=== PATIENT | female | born 1970 | race Hispanic/Latino ===

== ENCOUNTER → 2020-02-02 09:18 | Outpatient (CLI) | payer OTHER, SELFPAY ==
--- NOTE | ~2020-02-02 | MR_ITS ---
EXAMINATION: MR ankle RT wo con DATE: 02/02/2020 10:19 INDICATION: Right ankle pain post injury TECHNIQUE: Magnetic resonance imaging (MRI) of the right ankle was performed without intravenous cont rast. Sequences included sagittal, coronal, and axial proton-density weighted fast spin echo without and with fat saturation. COMPARISON: None. FINDINGS: Medial ankle ligaments: Deep and superficial deltoid ligaments as well as the spring ligament are normal. Lateral ankle ligaments: The anterior and posterior inferior tibiofibular ligaments are normal. The calcaneofibular and maori physiotherapist ior talofibular ligaments are normal. There is thickening and mild increased signal at the fibular si de of the anterior talofibular ligament without surrounding edema consistent with scarring related to chronic sprain. Tendons: Achilles tendon is normal. Mild tendinopathy and longitudinal split tearing of both the peroneus long us tendon and peroneus brevis tendon at the level of the flat retromalleolar groove. There is mild as sociated peroneal tenosynovitis. The tibialis anterior and extensor hallucis longus and extensor digi torum longus tendons are normal. The flexor digitorum longus and flexor hallucis longus tendons are n ormal. Mild tibialis posterior tenosynovitis with small amount of fluid signal surrounding the tendon above the level of the tibiotalar joint line. 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 Differential would include heterotopic ossicle related to chronic enthesopathy or chronic tendon injury or less likely sequela of chronic a vulsion fracture with no abnormal increased signal in the immediately adjacent navicula. Plantar fascia: Plantar aponeurosis is normal. Bones/other: Bone alignment is normal. Normal marrow signal aside from the previously noted increased signal of th e tiny ossicle within the distal tibialis posterior tendon. Joint spaces are normal. No significant j oint space narrowing, evident erosions or osteophytosis. Fluid: Physiologic amount fluid in the joint spaces. IMPRESSION: 1. Mild increased signal within a tiny ossicle in the distal tibialis posterior tendon at its navicul ar insertion. 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 Differential would include less likely sequela of chronic enthesopathy or chronic avulsion injury either with nonunited fracture or secondary heterotopic ossification. 2. Mild peroneal tenosynovitis with mild tendinopathy and longitudinal split tearing of both the preet neus longus and brevis tendons at the level of the retromalleolar groove. 3. Likely scarring related to chronic sprain at the anterior talofibular ligament. Reviewed, dictated and finalized at location [facility]. [facility] IMPRESSION: 1. Mild increased signal within a tiny ossicle in the distal tibialis posterior tendon at its navicular insertion. 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 Differential would inclu de less likely sequela of chronic enthesopathy or chronic avulsion injury eithe r with nonunited fracture or secondary heterotopic ossification. 2. Mild peroneal tenosynovitis with mild tendinopathy and longitudinal split te aring of both the peroneus longus and brevis tendons at the level of the retrom alleolar groove. 3. Likely scarring related to chronic sprain at the anterior talofibular ligame nt.
== END ==
PROVIDERS: Visit Provider Podiatrist Foot & Ankle Surgery
DX: M25.571 Pain in right ankle and joints of right foot (principal)
CPT/HCPCS: 73721

== ENCOUNTER 2024-02-17 07:30 | Outpatient (CLI) | payer OTHER, SELFPAY ==
--- NOTE | ~2024-02-17 | MR_ITS ---
MRI of the right knee Clinical history: Pain Technique: Coronal proton density and proton density-weighted images, sagittal proton-density and T2 fat-sat images, and axial proton-density fat-saturated images were acquired. Findings: Anterior and posterior cruciate ligaments are intact. Medial collateral ligament and the la teral collateral ligament conflux are intact. Popliteus tendon is intact. There is a radial tear at the posterior root of the medial meniscus. No lateral meniscal tear seen. There is mild to moderate chondromalacia at the medial joint line. There is minimal chondromalacia pa tella. Bone marrow signals are unremarkable. Extensor mechanism is intact. No significant joint effusion. Small Jj's cyst. Impression: Radial tear at the posterior root of the medial meniscus. 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 Small Jj's cyst. Reviewed, dictated and finalized at [facility]. 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 Small Jj's cyst.
--- OUTSIDE RECORDS SUMMARY | 2024-02-21 16:21 | XMS_ITS | Patient Health Summary ---
Author Organization [facility] Address [address] [place] [address] Care Team Providers Care Plater Production Name Role Phone Noemi, Melani Linda MENARD Primary Care Provider [phone] Note from [facility],non-owned Affiliates and Associated Physician Practices is amultiple site organization consisting of ambulatory clinics and hospital sitesin [place], [place], [place] and [place]. This disclosure is being madepursuant to the Care Everywhere program and may not contain all information available regarding this patient. Last updated 17.[facility] [employer] Allergies No known active allergies Social History Tobacco Use Types Packs/Day Years Used Date Smoking Tobacco: Never Assessed Sex and Gender Information Value Date Recorded Sex Assigned at Female 11/22/2023 12:56 PM CDT Gender Identity Female 11/22/2023 12:56 PM CDT Sexual Orientation Straight 11/22/2023 12 :56 PM CDT Last Filed Vital Signs Vital Sign Reading Time Taken Comments Blood Pressure - - Pulse - - Temperature - - Respiratory Rate - - Oxygen Saturation - - Inhaled Oxygen Concentration - - Weight 55.3 kg (122 lb) 01/02/2024 2:06 PM CDT Height 157.5 cm (5' 2 ) 01/02/2024 2:06 PM CDT Body Mass Index 22.31 01/02/2024 2:06 PM CDT Procedures * US BREAST RIGHT LTD(Performed 01/02/2024) Performed for Breast asymmetry * MAMMO RIGHT IMPLANT DX W MIKY(Performed 01/02/2024) Performed for Breast asymmetry * MAMMO BILAT IMPLANT SCREEN W MIKY(Performed 11/23/2023) Performed for Screening mammogram for breast cancer * DEXA BONE DENSITY AXIAL SKELETON(Performed 11/23/2023) Performed for Screening for osteoporosis * US BREAST LEFT LTD(Performed 03/14/2021) Performed for Abnormal mammogram * MAMMO LEFT DIAGNOSTIC W MIKY(Performed 03/14/2021) Performed for Abnormal mammogram * MAMMO BILAT IMPLANT SCREEN W MIKY(Performed 02/22/2021) Performed for Screening breast examination * MAMMO BILAT SCREENING(Performed 11/24/2019) Performed for Breast cancer screening * MAMMO BILAT SCREENING(Performed 08/06/2018) Performed for Visit for screening mammogram * MAMMO BILAT SCREENING(Performed 07/31/2017) Performed for Visit for screening mammogram * MAMMO BILAT SCREENING(Performed 06/22/2016) Performed for Visit for screening mammogram * MAMMO BILAT SCREENING(Performed 06/16/2014) Performed for Other screening mammogram * DERMATOPATHOLOGY(Performed 09/13/2011) * CHROMOSOME ANALYSIS AMNIOTIC FLUID(Performed 07/06/2010) * SONOGRAM - COMPLETE(Performed 07/06/2010) Results * US BREAST RIGHT LTD (Diagnostic, most commonly ordered) (01/02/2024 2:43 PM CDT) Anatomical Region Laterality Modality Breast Right Mammography 01/02/2024 1:40 PM CDT Impressions 01/02/2024 3:36 PM CDT IMPRESSION: No mammographic or targeted right sonographic evidence of malignancy within the right breast. RECOMMENDATION: ??Pending no interval breast concerns, screening mammogram is due in November 2024. Dr. Holley discussed the examination findings and recommendations with the patient at the time of the examination. Patient will also receive the exam results by lay letter. OVERALL ASSESSMENT: ??BI-RADS CATEGORY 2: BENIGN. Report dictated by Alec Mariee MD (resident in diagnostic radiology). I, Janis Holley MD have personally reviewed and interpreted this examination/study. > Interpreting Provider: Janis Holley MD on 01/02/2024 3:36 PM Narrative 01/02/2024 3:36 PM CDT EXAMINATIONS: 1. ??RIGHT DIGITAL DIAGNOSTIC MAMMOGRAM AND TOMOSYNTHESIS AND 2. ??LIMITED RIGHT BREAST ULTRASOUND (COMBINED REPORT) LOCATION: [facility] EXAM DATE: ??01/02/2024 HISTORY: Follow-up to an abnormal screening mammogram. 7 mm asymmetry in the central/slightly outer right breast on craniocaudal displaced implant view. Family history of breast cancer diagnosed in a paternal aunt at age 40. RISK ASSESSMENT CALCULATION: Patient completed a breast cancer risk assessment during her appointment 01/02/2024. ??Based upon the information she provided and her mammographic breast density, her lifetime risk of developing breast cancer is ??13 % (Average Risk <15%; Intermediate / Moderate Risk 15-19; High Risk > 20%). Risk assessment based upon the Tyrer-Cuzick v8 model. By the NCCN guidelines and family history of breast cancer, consideration of genetic testing is recommended, if not already performed. COMPARISON: Comparison is made to prior mammograms dating back to 2018, with most recent screening mammogram dated 11/23/2023. MAMMOGRAM: TECHNIQUE: Diagnostic right mammography was performed. Tomosynthesis (3-D) and reconstructed synthetic 2-D images acquired. Craniocaudal and true lateral displaced implant views obtained in addition to spot compression craniocaudal view. A total of 6 images were obtained. ?? BREAST COMPOSITION: Category C: The breasts are heterogeneously dense which may obscure small masses. FINDINGS: ??There is no suspicious finding, mass, or evidence of malignancy. The area in question on the recent exam is felt to represent normal parenchymal tissue. ??There is no significant change from the prior study. LIMITED RIGHT BREAST ULTRASOUND: ? Scanning performed from the 11 to the ??1 and 5 to 7 o'clock areas, in addition to the subareolar right breast. Dr. Holley also scanned the patient. FINDINGS: Within the right retroareolar left breast at the 1:00 position is a 0.4 x 0.3 x 0.2 cm well-circumscribed, oval, anechoic mass representing a simple cyst. No suspicious findings identified. Melani Franklin DO US ORDERABLES * Mammo Right Implant Dx W Miky (01/02/2024 2:06 PM CDT) Anatomical Region Laterality Modality Breast Right Mammography 01/02/2024 1:40 PM CDT Impressions 01/02/2024 3:36 PM CDT IMPRESSION: No mammographic or targeted right sonographic evidence of malignancy within the right breast. RECOMMENDATION: ??Pending no interval breast concerns, screening mammogram is due in November 2024. Dr. Holley discussed the examination findings and recommendations with the patient at the time of the examination. Patient will also receive the exam results by lay letter. OVERALL ASSESSMENT: ??BI-RADS CATEGORY 2: BENIGN. Report dictated by Alec Mariee MD (resident in diagnostic radiology). I, Janis Holley MD have personally reviewed and interpreted this examination/study. > Interpreting Provider: Janis Holley MD on 01/02/2024 3:36 PM Narrative 01/02/2024 3:36 PM CDT EXAMINATIONS: 1. ??RIGHT DIGITAL DIAGNOSTIC MAMMOGRAM AND TOMOSYNTHESIS AND 2. ??LIMITED RIGHT BREAST ULTRASOUND (COMBINED REPORT) LOCATION: [facility] EXAM DATE: ??01/02/2024 HISTORY: Follow-up to an abnormal screening mammogram. 7 mm asymmetry in the central/slightly outer right breast on craniocaudal displaced implant view. Family history of breast cancer diagnosed in a paternal aunt at age 40. RISK ASSESSMENT CALCULATION: Patient completed a breast cancer risk assessment during her appointment 01/02/2024. ??Based upon the information she provided and her mammographic breast density, her lifetime risk of developing breast cancer is ??13 % (Average Risk <15%; Intermediate / Moderate Risk 15-19; High Risk > 20%). Risk assessment based upon the Tyrer-Cuzick v8 model. By the NCCN guidelines and family history of breast cancer, consideration of genetic testing is recommended, if not already performed. COMPARISON: Comparison is made to prior mammograms dating back to 2018, with most recent screening mammogram dated 11/23/2023. MAMMOGRAM: TECHNIQUE: Diagnostic right mammography was performed. Tomosynthesis (3-D) and reconstructed synthetic 2-D images acquired. Craniocaudal and true lateral displaced implant views obtained in addition to spot compression craniocaudal view. A total of 6 images were obtained. ?? BREAST COMPOSITION: Category C: The breasts are heterogeneously dense which may obscure small masses. FINDINGS: ??There is no suspicious finding, mass, or evidence of malignancy. The area in question on the recent exam is felt to represent normal parenchymal tissue. ??There is no significant change from the prior study. LIMITED RIGHT BREAST ULTRASOUND: ? Scanning performed from the 11 to the ??1 and 5 to 7 o'clock areas, in addition to the subareolar right breast. Dr. Holley also scanned the patient. FINDINGS: Within the right retroareolar left breast at the 1:00 position is a 0.4 x 0.3 x 0.2 cm well-circumscribed, oval, anechoic mass representing a simple cyst. No suspicious findings identified. Melanilisa Mckeon Noemi DO MAMMO ORDERABLES * Mammo Bilat Implant Screen W Miky (11/23/2023 11:21 AM CDT) Only the most recent of2 resultswithin the time period is included. Anatomical Region Laterality Modality Breast Bilateral Mammography 11/28/2023 1:41 PM CDT Impressions 11/28/2023 2:20 PM CDT : 1. There is a 7mm asymmetry in the central/slightly outer right breast identified on the craniocaudal displaced implant view. 2. Stable benign left mammogram. RECOMMENDATION: ??Diagnostic right mammogram. ??If indicated at that time, right breast ultrasound will be performed. ??Patient will be contacted and scheduled to return for the additional imaging. OVERALL ASSESSMENT: BI-RADS CATEGORY 0: INCOMPLETE: NEED ADDITIONAL IMAGING EVALUATION. Report dictated by Jose Martinez MD (vice president quality assurance). Joaquina Bartlett MD (breast imaging fellow) and Alex Dougherty MD (resident in diagnostic radiology) assisted in the interpretation of this study. I, Janis Holley MD have personally reviewed and interpreted this examination/study. > Interpreting Provider: Janis Holley MD on 11/28/2023 2:20 PM Narrative 11/28/2023 2:20 PM CDT EXAMINATIONS: BILATERAL DIGITAL SCREENING MAMMOGRAM WITH IMPLANTS AND BILATERAL BREAST TOMOSYNTHESIS LOCATION: [facility] EXAM DATE: ??11/23/2023 HISTORY: Screening. History of breast augmentation. Family history of breast cancer in paternal aunt at age 40. RISK ASSESSMENT CALCULATION: Patient completed a breast cancer risk assessment during her appointment 11/23/2023. ??Based upon the information she provided and her mammographic breast density, her lifetime risk of developing breast cancer is ??13 % (Average Risk <15%; Intermediate / Moderate Risk 15-19; High Risk > 20%). Risk assessment based upon the Tyrer-Cuzick v8 model. COMPARISON: Comparison is made to prior mammograms back to 2018 with the most recent from 04/11/2022 performed at [facility]. TECHNIQUE: ??Bilateral synthetic 2-D digital mammogram images and bilateral digital breast tomosynthesis (3D) were obtained and reviewed in the craniocaudal and mediolateral oblique projections with the breast implants displaced. ??Bilateral craniocaudal and mediolateral oblique conventional full field digital images were also obtained to include the bilateral breast implants. . A total of 10 images obtained. Transpara AI was utilized in the interpretation. ?? BREAST PARENCHYMAL COMPOSITION: Category B: There are scattered areas of fibroglandular density. FINDINGS: There are bilateral silicone breast implants, which limits evaluation of the breast parenchyma. Right breast: ??On the right craniocaudal displaced implant view, there is a 7 mm asymmetry in the central/slightly outer right breast at mid depth 2.5 cm from the nipple. This is best visualized on image 9 of 50. The correlate is not definitively identified on the MLO views. Left breast: ??No suspicious findings or evidence of malignancy. No change. Melani Franklin DO MAMMO ORDERABLES * Dexa Bone Density Axial Skeleton (11/23/2023 10:24 AM CDT) Anatomical Region Laterality Modality Other 11/23/2023 10:3 1 AM CDT Narrative 11/23/2023 10:35 AM CDT PROCEDURE: ??DEXA BONE DENSITY AXIAL SKELETON DATE/TIME OF EXAM: ??11/23/2023 10:24 AM Indication: Z13.820: Screening for osteoporosis COMPARISON: None. LUMBAR SPINE (L1-L4): Bone mineral density (g/cm2): ??1.121 Current T-score: 0.7 ? LEFT FEMORAL NECK: ?? Bone mineral density (g/cm2): ??0.858 Current T-score: 0.1 ? BONE DENSITY ASSESSMENT: WHO Category: ??Normal. FRAX not reported because: All T-scores for spine total, hip total, femoral neck at or above -1.0. Please see the PACS images for additional details. World Health Organization definitions of standard deviations relative to the mean T-score: Normal bone density = -1.0 and above Osteopenia = between -1.0 and -2.5 Osteoporosis = -2.5 and below > Dictated by Kandace Alcantar (Side Guider) 11/23/2023 10:31 AM IClarita DO have personally reviewed and interpreted this examination/study. > Interpreting Provider: Clarita Antony DO on 11/23/2023 10:35 AM Procedure Note Clarita Antony DO - 11/23/2023 PROCEDURE: DEXA BONE DENSITY AXIAL SKELETON DATE/TIME OF EXAM: 11/23/2023 10:24 AM Indication: Z13.820: Screening for osteoporosis COMPARISON: None. LUMBAR SPINE (L1-L4): Bone mineral density (g/cm2): 1.121 Current T-score: 0.7 LEFT FEMORAL NECK: Bone mineral density (g/cm2): 0.858 Current T-score: 0.1 BONE DENSITY ASSESSMENT: WHO Category: Normal. FRAX not reported because: All T-scores for spine total, hip total, femoral neck at or above -1.0. Please see the PACS images for additional details. World Health Organization definitions of standard deviations relative to the mean T-score: Normal bone density = -1.0 and above Osteopenia = between -1.0 and -2.5 Osteoporosis = -2.5 and below > Dictated by Kandace Alcantar (Side Guider) 11/23/2023 10:31AM Clarita Mattson DO have personally reviewed and interpreted this examination/study. > Interpreting Provider: Clarita Antony DO on 11/23/2023 10:35 AM Eben BOYD ORDERABLES * US BREAST LEFT LTD (03/14/2021 10:02 AM WASTE RECYCLER) Anatomical Region Laterality Modality Breast Left Mammography 03/14/2021 10:0 0 AM WASTE RECYCLER Impressions 03/14/2021 1:03 PM WASTE RECYCLER IMPRESSION: No mammographic evidence of malignancy. RECOMMENDATION: ??Recommend resume yearly screening mammography and mammogram is due in February 2022. Dr. Gómez discussed the examination findings and recommendations with the patient at the time of the examination. OVERALL ASSESSMENT: ??BI-RADS CATEGORY 2: BENIGN. Report drafted by Matt Chang and Jennifer Hassan (residents). Dr. ARTIE Mattson M.D. have personally reviewed and interpreted this examination/study. This report was electronically signed by ARTIE GÓMEZ M.D. ??on 03/14/2021 1:03 PM . Narrative 03/14/2021 1:03 PM WASTE RECYCLER EXAMINATIONS: 1. ??DIGITAL MAMMO LEFT DIAGNOSTIC WITH TOMOSYNTHESIS AND 2. ??LIMITED ??LEFT BREAST ULTRASOUND (COMBINED REPORT) DATE OF EXAM: 03/14/2021 9:36 AM HISTORY: Follow-up to an abnormal screening mammogram. Asymmetry in the left breast on screening mammogram. Patient has breast implants. Patient's lifetime risk of developing breast cancer is 16 %. COMPARISON: Bilateral screening mammogram on 02/22/2021 MAMMOGRAM: TECHNIQUE: Diagnostic left mammography was performed. Tomosynthesis (3-D) and reconstructed C - view (synthetic 2-D) ??images acquired. Tomosynthesis (3-D) and reconstructed C - view (synthetic 2-D) ??images acquired and reviewed in the left craniocaudal and mediolateral oblique implant displaced projections. Left craniocaudal and mediolateral conventional full field digital images were obtained to include the left breast implant. ?? A total of 3 images were obtained. ??Computer-aided detection (CAD) was utilized. BREAST COMPOSITION: Category B: There are scattered areas of fibroglandular density. FINDINGS: ??The area in question compresses out, without suspicious findings or evidence of malignancy, and is felt due to normal parenchyma. LIMITED LEFT BREAST ULTRASOUND: Ultrasound of the 12:00 to 6:00 region via the 3:00 position of the left breast was performed. FINDINGS: No mass or sonographic evidence of malignancy is seen. The ultrasound is normal. Melani Franklin US ORDERABLES * MAMMO LEFT DIAGNOSTIC W MIKY (03/14/2021 9:35 AM WASTE RECYCLER) Anatomical Region Laterality Modality Breast Left Mammography 03/14/2021 10:0 0 AM WASTE RECYCLER Impressions 03/14/2021 1:03 PM WASTE RECYCLER IMPRESSION: No mammographic evidence of malignancy. RECOMMENDATION: ??Recommend resume yearly screening mammography and mammogram is due in February 2022. Dr. Gómez discussed the examination findings and recommendations with the patient at the time of the examination. OVERALL ASSESSMENT: ??BI-RADS CATEGORY 2: BENIGN. Report drafted by Matt Chang and Jennifer Hassan (residents). I, Dr. ARTIE GÓMEZ M.D. have personally reviewed and interpreted this examination/study. This report was electronically signed by ARTIE GÓMEZ M.D. ??on 03/14/2021 1:03 PM . Narrative 03/14/2021 1:03 PM WASTE RECYCLER EXAMINATIONS: 1. ??DIGITAL MAMMO LEFT DIAGNOSTIC WITH TOMOSYNTHESIS AND 2. ??LIMITED ??LEFT BREAST ULTRASOUND (COMBINED REPORT) DATE OF EXAM: 03/14/2021 9:36 AM HISTORY: Follow-up to an abnormal screening mammogram. Asymmetry in the left breast on screening mammogram. Patient has breast implants. Patient's lifetime risk of developing breast cancer is 16 %. COMPARISON: Bilateral screening mammogram on 02/22/2021 MAMMOGRAM: TECHNIQUE: Diagnostic left mammography was performed. Tomosynthesis (3-D) and reconstructed C - view (synthetic 2-D) ??images acquired. Tomosynthesis (3-D) and reconstructed C - view (synthetic 2-D) ??images acquired and reviewed in the left craniocaudal and mediolateral oblique implant displaced projections. Left craniocaudal and mediolateral conventional full field digital images were obtained to include the left breast implant. ?? A total of 3 images were obtained. ??Computer-aided detection (CAD) was utilized. BREAST COMPOSITION: Category B: There are scattered areas of fibroglandular density. FINDINGS: ??The area in question compresses out, without suspicious findings or evidence of malignancy, and is felt due to normal parenchyma. LIMITED LEFT BREAST ULTRASOUND: Ultrasound of the 12:00 to 6:00 region via the 3:00 position of the left breast was performed. FINDINGS: No mass or sonographic evidence of malignancy is seen. The ultrasound is normal. Melani Franklin DO MAMMO ORDERABLES * MAMMO BILAT SCREENING (11/24/2019 8:05 AM CDT) Only the most recent of5 resultswithin the time period is included. Anatomical Region Laterality Modality Breast Bilateral Mammography 11/24/2019 9:24 AM CDT Impressions 11/24/2019 9:28 AM CDT IMPRESSION: No mammographic evidence of malignancy. ASSESSMENT: BI-RADS Category 2: ?? Benign mammogram. RECOMMENDATION: ??Return for mammograms in one year or sooner if clinically indicated. Breast implants decrease the sensitivity of mammography. This report was electronically signed by SHAMIKA TELLO M.D. ??on 11/24/2019 9:28 AM . Narrative 11/24/2019 9:28 AM CDT Bilateral screening mammogram Date: ??11/24/2019 Comparison: 08/06/2018 History: Screening mammogram. Retropectoral silicone breast implants ?. Technique: ??The breasts were imaged in multiple views using 3D tomosynthesis with reconstructed/synthetic images and CAD analysis, including implant displaced views. Findings: No suspicious mass, grouped microcalcification or architectural distortion is seen. ??No significant change is noted since the prior examination. ??The implants appear unchanged in contour. Breast parenchymal density: ??There are scattered areas of fibroglandular density This examination was subjected to CAD analysis. Melani Mckeon Noemi DO MAMMO ORDERABLES * PATHOLOGY TISSUE FOR DERMATOLOGY (09/13/2011 12:00 AM CDT) Result CASE: [id number] PATIENT: JODY ESCALONA PATHOLOGIC DIAGNOSIS: Right lateral chest: INTRADERMAL MELANOCYTIC NEVUS CLINICAL DATA: R/O tag. GROSS DESCRIPTION: Received is one formalin filled container labeled with the patient's name and designated right lateral chest. The specimen consists of a shave biopsy measuring 5x5x4 mm. Jar 0. MICROSCOPIC DESCRIPTION: There are nests of melanocytes within the dermis that mature with depth. Final Diagnosis performed by Brittaney Fisher M.D. Electronically signed 09/15/2011 1:49:17PM [facility] Comment: Performed at: Dermatopathology Laboratory [facility] Department of Dermatology [address] [place] [address], [address] [place] [address] Phone number: [phone] Toll Free: [phone] FAX: [phone] 09/13/2011 09/14/2011 Santana Bradford MD LAB - PATHOLOGY/CYTO LOGY ORDERABLES Performing Organization Address City/[facility] Co de Phone Number [facility] [address] [place] [address]. 5th Floor Lab [address] [phone] * CHROMOSOME ANALYSIS AMNIO PANEL (07/06/2010 11:30 AM CDT) Chromosome Analysis Amniotic Fluid See Scanned Report [facility] AMNIOTIC FLUID SPECIMEN / Unknown 07/06/2010 11:30 AM CDT 07/06/2010 3:57 PM CDT Narrative Resulting Agency Comment Performed By [facility] ? [address] [facility]. Ordering Provider Unlisted MD LAB - PATH OLOGY/CYTOLOGY ORDERABLES Performing Organization Address City/[facility] Co de Phone Number [facility] [address] [place] [address] * SONOGRAM - COMPLETE (07/06/2010 11:10 AM CDT) Anatomical Region Laterality Modality Other 07/06/2010 11:1 0 AM CDT Narrative 07/21/2010 3:31 PM CDT ? [facility] ? Evaluation and Treatment Unit ?PHONE: ??FAX: Pat. Name: ?JODY ESCALONA Pat. No: ?[id number] Study Date: ?? 07/06/2010 ??11:10am , Age: ? 1970, 40 Pregnancies: ?? 4, Para 1, Ab 2 LMP: ?03/16/2010 GA by LMP: ?16w0d GA by US: ? 16w6d GA Selected: ??16w0d (LMP) IVANIA: ?12/21/2010 Referring MD: Eben Lainez MD Speech Correction Consultant: ??Bridgett Chiang RDMS/hilary Hist/Ind: ? Abn Sequential Scrn/Incr risk DS ?AMA MEASUREMENTS & AGE ? GROWTH EVALUATION Measurement ??GA ? Range ? Srce %for GA Ratios ----- ---- ------- BPD ??3.8 cm 17w4d (37m6a-57u2r) Hadl BPD >95 FL/BPD 0.52 HC ??13.4 cm 16w6d (70x8f-02q4x) Hadl HC ??84% FL/AC ??0.18 AC ??11.0 cm 16w6d (12v2u-04x1e) Hadl AC ??74% HC/AC ??1.21 (1.09 - 1.28) FL ?? 2.0 cm 15w6d (62q6c-12j2w) Hadl FL ??46% CI ? 0.83 (0.70 - 0.86) GA for sonogram 16w6d (51m5v-82c6g) ?? Weight Estimate: based on (BPD,HC,AC,FL) Avg ?Weight: 158 gm (135-181) [place]lock ? : 0lbs, 5oz Heart Rate: 154 bpm CLINICAL SUMMARY Study Number: ??1 A costello fetus is identified in cephalic presentation. ??The measurements today are consistent with appropriate growth compared to previous examination. ??The IVANIA selected is based on her LMP and a prior ultrasound examination. ??The amniotic fluid volume is within normal limits. ??The placenta is posterior, Grade 1. ??No major malformations are seen, although the heart was not well visualized due to position and size. ??The patient was advised that ultrasound does not allow detection of all structural or chromosomal abnormalities. ??She consented for amniocentesis. ?? Amniocentesis was performed under direct ultrasound guidance without complications. ??The placenta was not traversed, 20cc's of clear fluid were obtained and sent for chromosomes studies. ??The heart rate was within normal limits post procedure. ?? IMPRESSION: 1. ??Costello IUP at 16 weels EGA 2. ??Normal growth 3. ??Normal AFV 4. ??No malformations seen within the limitations of ultrasound 5. ??Amnio for increased DS risk/AMA done RECOMMEND: F 1. ??Follow up ultrasound as clinically indicated 2. ??Follow up on karyotype results Gilmar White MD <Electronic Signature> ??07/21/2010 03:31pm Eben Lainez MD [facility] ORDERABLES Care Teams Plater Production Relationship Specialty Start Date End Date Melani Franklin DO [address] [place] [address] [address] [place] [address] PCP - General Internal Medicine 07/31/17
--- OUTSIDE RECORDS SUMMARY | 2024-02-21 16:21 | XMS_ITS | Clinical Summary ---
Author Organization [facility] Address [address] [place] [address] Care Team Providers Care Captain Fishing Vessel Name Role Phone Melani Franklin DO Primary Care Provider [phone] Source Comments [facility],non-owned Affiliates and Associated Physician Practices is amultiple site organization consisting of ambulatory clinics and hospital sitesin [place], [place], [place] and [place]. This disclosure is being madepursuant to the Care Everywhere program and may not contain all information available regarding this patient. Last updated 17.[facility] [place] Allergies No known active allergies Encounters Date Type Department Care Team Description 01/02/2024 1:15 PM CDT - 01/02/2024 11:59 PM CDT Hospital Encounter [address] [address] Melani Franklin, Discharge Disposition: Home or Self Care 01/02/2024 1:14 PM CDT Hospital Encounter [address] [address] Melani Franklin, Discharge Disposition: Home or Self Care 01/02/2024 Travel 11/29/2023 Travel 11/23/2023 10:48 AM CDT - 11/23/2023 11:59 PM CDT Hospital Encounter [address] [address] Eben Lainez MD Discharge Disposition: Home or Self Care 11/23/2023 10:00 AM CDT - 11/23/2023 10:47 AM CDT Hospital Encounter [facility] DIAGNOSTIC RAD OP [address] [place] [address] Eben Lainez MD Discharge Disposition: Home or Self Care 11/23/2023 Travel from Last 3 Months Family History Medical History Relation Name Comments Cancer - Breast Paternal Aunt Relation Name Status Comments Paternal Aunt Social History Tobacco Use Types Packs/Day Years [...] Mass Index 22.31 01/02/2024 2:06 PM CDT Plan of Treatment Health Maintenance Due Date Last Done Comments COLOGUARD (AGES 45-75) - COLON CA SCREENING 1969 COLON MONITORING 1969 COLONOSCOPY - COLON CA SCREENING 1969 CT COLONOGRAPHY - COLON CA SCREENING 1969 Colorectal Cancer Screening 1969 FIT - COLON CA SCREENING 1969 FLEX SIG - COLON CA SCREENING 1969 LIPID TESTING 1969 PAP SMEAR 1969 HIV SCREENING 01/27/1984 HEPATITIS C SCREENING 01/22/1987 DTAP/TDAP/TD VACCINES (1 - Tdap) 01/27/1988 HEPATITIS B VACCINE (1 of 3 - 19+ 3-dose series) 01/27/1988 ZOSTER VACCINE (1 of 2) 2019 DEPRESSION SCREENING 03/05/2023 COVID-19 VACCINE ( - 2023- season) 2023 INFLUENZA VACCINE (#1) 2023 , 10/17/2020, 11/17/2019, Additional history exists MAMMOGRAM 01/01/2026 01/02/2024, 11/04, 04/11/2022, Additional history exists HIB VACCINE Aged Out No longer eligi ble based on patient's age to complete this topic HPV VACCINE Aged Out No longer eligi ble based on patient's age to complete this topic MENINGOCOCCAL VACCINE Aged Out No karma blake eligible based on patient's age to complete this topic PNEUMOCOCCAL VACCINE Aged Out No long er eligible based on patient's age to complete this topic Procedures Procedure Name Priority Date/Time Associated Diagnosis Comments US BREAST RIGHT LTD Routine 01/02/2024 2:43 PM CDT Breast asymmetry MAMMO RIGHT IMPLANT DX W DENIS Routine 01/02/2024 2:06 PM CDT Breast asymmetry MAMMO BILAT IMPLANT SCREEN W DENIS Routine 11/23/2023 11:21 AM CDT Screening mammogram for breast cancer DEXA BONE DENSITY AXIAL SKELETON Routine 11/23/2023 10:24 AM CDT Screening for osteoporosis from Last 3 Months Results * US BREAST RIGHT LTD (Diagnostic, [...] BENIGN. Report dictated by Alec Mariee MD (residential support specialist). I, Janis Holley MD have personally reviewed and interpreted this examination/study. > Interpreting Provider: Janis Holley MD on 01/02/2024 3:36 PM Narrative 01/02/2024 3:36 PM CDT EXAMINATIONS: 1. ??RIGHT DIGITAL DIAGNOSTIC MAMMOGRAM AND TOMOSYNTHESIS AND 2. ??LIMITED RIGHT BREAST ULTRASOUND (COMBINED REPORT) LOCATION: [facility] EXAM DATE: ??01/02/2024 HISTORY: Follow-up to an [...] ORDERABLES * Mammo Right Implant Dx W Denis (01/02/2024 2:06 PM CDT) Anatomical Region Laterality [...] BENIGN. Report dictated by Alec Mariee MD (residential support specialist). I, Janis Holley MD have personally reviewed and interpreted this examination/study. > Interpreting Provider: Janis Holley MD on 01/02/2024 3:36 PM Narrative 01/02/2024 3:36 PM CDT EXAMINATIONS: 1. ??RIGHT DIGITAL DIAGNOSTIC MAMMOGRAM AND TOMOSYNTHESIS AND 2. ??LIMITED RIGHT BREAST ULTRASOUND (COMBINED REPORT) LOCATION: [facility] EXAM DATE: ??01/02/2024 HISTORY: Follow-up to an [...] No suspicious findings identified. Melani Franklin DO MAMMO ORDERABLES * Mammo Bilat Implant Screen W Denis (11/23/2023 11:21 AM CDT) Anatomical Region Laterality Modality Breast Bilateral Mammography [...] EVALUATION. Report dictated by Jose Martinez MD (residential plumber). Joaquina Bartlett MD (breast imaging fellow) and Alex Dougherty MD (residential support specialist) assisted in the interpretation of this study. I, Jains Holley MD have personally reviewed and interpreted this examination/study. > Interpreting Provider: Janis Holley MD on 11/28/2023 2:20 PM Narrative 11/28/2023 2:20 PM CDT EXAMINATIONS: BILATERAL DIGITAL SCREENING MAMMOGRAM WITH IMPLANTS AND BILATERAL BREAST TOMOSYNTHESIS LOCATION: [facility] EXAM DATE: ??11/23/2023 HISTORY: Screening. History of [...] the most recent from 04/11/2022 performed at [facility]. TECHNIQUE: ??Bilateral synthetic 2-D digital mammogram images [...] and below > Dictated by Kandace Alcantar (Wall Cleaner) 11/23/2023 10:31 AM Clarita Mattson DO have personally reviewed and [...] and below > Dictated by Kandace Alcantar (Wall Cleaner) 11/23/2023 10:31AM Clarita Mattson DO have personally reviewed and interpreted this examination/study. > Interpreting Provider: Clarita Antony DO on 11/23/2023 10:35 AM Eben BOBA ORDERABLES from Last 3 Months Care Teams Captain Fishing Vessel Relationship Specialty Start Date End Date Melani Franklin DO [address] [facility] [address] [place] [address] PCP - General Internal Medicine 07/31/17
--- OUTSIDE RECORDS SUMMARY | 2024-02-21 16:21 | XMS_ITS | Referral Summary ---
Author Organization [facility] Address [address] [place] [address] Care Team Providers Care Airport Electrician Name Role Phone Melani Franklin DO Primary Care Provider [phone] Source Comments [facility],non-owned Affiliates and Associated Physician Practices is amultiple site organization consisting of ambulatory clinics and hospital sitesin [place], [place], [place] and [place]. This disclosure is being madepursuant to the Care Everywhere program and may not contain all information available regarding this patient. Last updated 17.[facility] Encounters Date Type Department Care Team Description 01/02/2024 Travel 01/02/2024 1:15 PM CDT - 01/02/2024 11:59 PM CDT Hospital Encounter [address] [address] Melani Franklin, Discharge Disposition: Home or Self Care 01/02/2024 1:14 PM CDT Hospital Encounter [address] [address] Melani Franklin, Discharge Disposition: Home or Self Care 11/29/2023 Travel 11/23/2023 Travel 11/23/2023 10:48 AM CDT - 11/23/2023 11:59 PM CDT Hospital Encounter [address] [address] Eben Lainez MD Discharge Disposition: Home or Self Care 11/23/2023 10:00 AM CDT - 11/23/2023 10:47 AM CDT Hospital Encounter [facility] DIAGNOSTIC RAD OP [address] [place] [address] Eben Lainez MD Discharge Disposition: Home or Self Care from Last 3 Months Allergies No known active allergies Social History [...] 01/02/2024 2:06 PM CDT Plan of Treatment Not on file Procedures Procedure Name Priority Date/Time Associated Diagnosis [...] BENIGN. Report dictated by Alec Mariee MD (radiology nurse). I, Janis Holley MD have personally reviewed and interpreted this examination/study. > Interpreting Provider: Janis Holley MD on 01/02/2024 3:36 PM Narrative 01/02/2024 3:36 PM CDT EXAMINATIONS: 1. ??RIGHT DIGITAL DIAGNOSTIC MAMMOGRAM AND TOMOSYNTHESIS AND 2. ??LIMITED RIGHT BREAST ULTRASOUND (COMBINED REPORT) LOCATION: [facility] EXAM DATE: ??01/02/2024 HISTORY: Follow-up to an [...] BENIGN. Report dictated by Alec Mariee MD (radiology nurse). I, Janis Holley MD have personally reviewed and interpreted this examination/study. > Interpreting Provider: Janis Holley MD on 01/02/2024 3:36 PM Narrative 01/02/2024 3:36 PM CDT EXAMINATIONS: 1. ??RIGHT DIGITAL DIAGNOSTIC MAMMOGRAM AND TOMOSYNTHESIS AND 2. ??LIMITED RIGHT BREAST ULTRASOUND (COMBINED REPORT) LOCATION: [facility] EXAM DATE: ??01/02/2024 HISTORY: Follow-up to an [...] EVALUATION. Report dictated by Jose Martinez MD (regional vice president surgical sales). Joaquina Bartlett MD (breast imaging fellow) and Alex Dougherty MD (radiology nurse) assisted in the interpretation of this study. I, Janis Holley MD have personally reviewed and interpreted this examination/study. > Interpreting Provider: Janis Holley MD on 11/28/2023 2:20 PM Narrative 11/28/2023 2:20 PM CDT EXAMINATIONS: BILATERAL DIGITAL SCREENING MAMMOGRAM WITH IMPLANTS AND BILATERAL BREAST TOMOSYNTHESIS LOCATION: [facility] EXAM DATE: ??11/23/2023 HISTORY: Screening. History of [...] the most recent from 04/11/2022 performed at [facility]. TECHNIQUE: ??Bilateral synthetic 2-D digital mammogram images [...] and below > Dictated by Kandace Alcantar (Director Of Global Marketing) 11/23/2023 10:31 AM Clarita Mattson DO have [...] and below > Dictated by Kandace Alcantar (Director Of Global Marketing) 11/23/2023 10:31AM I, Clarita Antony DO have personally reviewed and interpreted this examination/study. > Interpreting Provider: lCarita Antony DO on 11/23/2023 10:35 AM Eben Lainez MD DEXA ORDERABLES from Last 3 Months Care Teams Airport Electrician Relationship Specialty Start Date End Date Melani Franklin DO [address] [facility] [address] [place], [place] [id number] PCP - General Internal Medicine 07/31/17
--- OUTSIDE RECORDS SUMMARY | 2024-02-21 16:22 | XMS_ITS | Encounter Summary ---
Author Organization [facility] Address [address] [place] [address] Phone Care Team Providers Care Kitchen Hand Name Role Phone Melani Franklin Linda Primary Care Provider [phone] Reason for Visit * Reason Comments OT Treatment * Consultation (Routine) - Authorized Specialty Diagnoses / Procedures Referred By Contact Referred To Contact Occupational Therapy Diagnoses Pain of left thumb Arthritis of carpometacarpal (CMC) joint of left thumb Anurag Franklin MD [address] [facility] [address] [place] [address] Phone: tel:[phone] fax:[phone] [facility] (All Locations) Referral ID Status Reason Start Date Expiration Date Visits Requested Visits Authorized [id number] Authorized Specialty Services Required 04/20/2023 05/19/2024 24 24 Encounter Details Date Type Department Care Team (Late st Contact Info) Description 05/28/2023 1:00 PM CDT Therapy [facility] Occupational Therapy [address] [facility] 1st [address] [place] [id number] [place] [address] [address] [place] [address] Pain of left thumb (Primary Dx) Social History Tobacco Use Types Packs/Day Years Used Date Smoking Tobacco: Former Cigarettes 1 14 1 993 - 2007 Smokeless Tobacco: Never AUDIT-C Answer Date Recorded Q1: How often do you have a drink containing alc ohol? 2-3 times a week 03/21/2023 Q2: How many drinks containi ng alcohol do you have on a typical day when you are drinking? 1 or 2 03/21/2023 Q3: How often do you have si x or more drinks on one occasion? Never 03/21/2023 Personal Safety Answer Date Recorded Have you ever been in or are you currently in a harmful physical or emotional relationship or is someone making you feel afraid or unsafe? Denies 03/21/2023 Comments No Sex and Gender Information Value Date Recorded Sex Assigned at Not on file Legal Sex Female 12:36 PM ACADEMIC PROGRAM SPECIALIST Gender Identity Female 12/10/2020 10:46 AM CDT Sexual Orientation Not on file documented as of this encounter Progress Notes * Khalida Carey, OT - 05/28/2023 1:00 PM CDT PROGRESS NOTE Name: Jody Mason : 1970 Diagnosis: No diagnosis found. MD's order on Diagnosis: Failed arthroplasty left thumb base Date of Surgery: 03/21/2023 Procedure: Removal internal brace implant Flexor carpi radialis and abductor pollicis longus tendon transfer to thumb base Frequency/Duration: 1x per week for up to 3 months Next MD Visit: 4-6 weeks OT/PT Evaluate and Treat: AROM of thumb, do not encourage/allow thumb MP hyperextension AROM of wrist and forearm Orthosis Specifications: forearm based thumb spica with thumb in anteposition and MP in slight flexion. 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 Objective: 01/25/2021 03/08/2021 12/06/2021 03/06/2023 03/30/2023 04/20/2023 PROMIS Upper Extremity V2.0 30.2 36.7 45.3 26.6 35.8 36.6 Pain Interference 60.4 53.9 52.6 62.9 64 58 Physical Function V2.0 46.1 48.2 51.4 37.5 32 42.4 Anxiety V1.0 51.2 45.7 53.1 62.1 58.3 51.2 Depression 42.9 41.7 45.8 53.3 46.1 41.7 Active Thumb Range of Motion Right Left MP extension/ flexion MP extension/ flexion NT/26 IP extension/flexion IP extension/flexion NT/63 Palmar abduction Palmar abduction 40 Radial abduction Radial abduction NT due to tendency to hyperextend at MP Opposition Opposition To SF P1 without hyperextension Other: Other: Noted intermittent slight hyperextension of MP during resting posture 66/53 WF/WE AROM 05/28/2023 QUICK DASH Open a tight or new jar 3 - Moderate Difficulty Do heavy jet pilot (e.g., wash rivera, floors) 3 - Moderate Difficulty Carry a shopping bag or briefcase 3 - Moderate Difficulty Wash your back 2 - Mild Difficulty Use a knife to cut food 3 - Moderate Difficulty Recreational activities in which you take some force or impact through your arm, shoulder, or hand (e.g., golf, hammering, tennis, etc.) 3 - Moderate Difficulty During the past week, to what extent has your arm, shoulder, or hand problem interfered with your normal social activities with family, friends, neighbours or groups? 1 - Not at All During the past week, were you limited in your work or other regular daily activities as a result of your arm, shoulder or hand problem? 2 - Slightly Limited Arm, shoulder or hand pain 2 - Mild Tingling (pins and needles) in your arm, shoulder or hand 1 - None During the past week, how much difficulty have you had sleeping because of the pain in your arm, shoulder or hand? 1 - No Difficulty Quick DASH Disability/Symptom Score: 29.55 Treatment provided: -MHP to improve tissue extensibility -Adductor pollicis release and massage -PROM: thumb abduction, thumb MP flexion, WF/WE -AROM: to train on O posture during pinching and to widen first webspace -Cone twisting and stacking -Marbles hop picker -Health balls -Continued HEP: -Thumb PAB and serial O using light objects for thumb stabilization. -Adductor release massage, and PAB stretch -Wrist flexion stretch -Thumb MP flexion stretch -Educated on thumb joint protection: pinching with lightest resistance when released to full activity, Assessment: Jody's thumb posture, and range are improving. She demonstrates good understanding of her final HEP. Her QuickDash's score also improved. Plan: She returns to MD tomorrow. She may be discharged unless her surgeon feels that she needs to continue. Updated MD orders required after: 07/19/23 GOALS: Goal Status / Date Updated Due by: STG1 Patient will verbalize understanding of purpose, care, wearing schedule, and precaution with orthosis. MET STG2 Patient will be able to hold MP in neutral and not hyperextension without support. MET 06/19/23 STG3 Patient will be able to oppose thumb to SF tip for in hand manipulation of cooking tools. MET 06/19/23 LTG1 Patient will be able to oppose thumb to SF base to manipulate to braid her daughter's hair. Almost MET 07/19/23 LTG2 New 04/20/2023 LTG3 New 04/20/2023 Start time: 13:03 End Time: 13:50 Khalida Carey OTR/Abisai, CHT If the patient does not return to therapy this will serve as a discharge summary. documented in this encounter Plan of Treatment Not on file documented as of this encounter Visit Diagnoses Diagnosis Pain of left thumb- Primary documented in this encounter Care Teams Kitchen Hand Relationship Specialty Start Date End Date Melani Franklin DO [address] [facility] [address] [place] [address] PCP - General Internal Medicine 10/05/20 documented as of this encounter
--- OUTSIDE RECORDS SUMMARY | 2024-02-21 16:22 | XMS_ITS | Encounter Summary ---
Author Organization [facility] Address [address] [place], [place] [address] [address] Care Team Providers Care Caddie Name Role Phone Melani Franklin DO Primary Care Provider Reason for Referral * Radiology Services (Routine) - Closed Specialty Diagnoses / Procedures Referred By Tyrone baxter Referred To Contact Mammography Diagnoses Abnormal mammogram Procedures US BREAST LEFT LTD Melani Franklin, DO [address] [facility] [address] [place] [address] [facility] [address] [place] [address] Referral ID Status Reason Start Date Expiration Date Visits Re quested Visits Authorized [id number] Closed 02/23/2021 02/23/2022 1 1 ILL RELIEF WORKER Reason for Visit * Radiology Services (Routine) - Closed Specialty Diagnoses / Procedures Referred By Tyrone baxter Referred To Contact Mammography Diagnoses Abnormal mammogram Procedures US BREAST LEFT LTD Melani Franklin, DO [address] [facility] [address] [place] [address] [facility] [address] [place] [address] Referral ID Status Reason Start Date Expiration Date Visits Re quested Visits Authorized [id number] Closed 02/23/2021 02/23/2022 1 1 Encounter Details Date Type Department Care Team (Latest Contact Info) Description 03/14/2021 9:47 AM SAWMILL RELIEF WORKER - 03/14/2021 11:59 PM SAWMILL RELIEF WORKER Hospital Encounter [facility] [address] [place] [address] Melani Franklin, DO [address] [facility] [address] [place] [address] Discharge Disposition: Home or Self Care Social History Tobacco Use Types Packs/Day Years Used Date Smoking Tobacco: Never Assessed Sex and Gender Information Value Date Recorded Sex Assigned at Female 11/22/2023 12:56 PM CDT Gender Identity Female 11/22/2023 12:56 PM CDT Sexual Orientation Straight 11/22/2023 12 :56 PM CDT COVID-19 Exposure Response Date Recorded In the last month, have you been in contact with someone who was confirmed or suspected to have Coronavirus / COVID-19? No / Unsure 03/14/2021 8:32 AM SAWMILL RELIEF WORKER documented as of this encounter Plan of Treatment Not on file documented as of this encounter Procedures Procedure Name Priority Date/Time Associated Diagnosis Comments US BREAST LEFT LTD Routine 03/14/2021 10 :02 AM SAWMILL RELIEF WORKER Abnormal mammogram documented in this encounter Results * US BREAST LEFT LTD (03/14/2021 10:02 AM SAWMILL RELIEF WORKER) Anatomical Region Laterality Modality Breast Left Mammography 03/14/2021 10:0 0 AM SAWMILL RELIEF WORKER Impressions 03/14/2021 1:03 PM SAWMILL RELIEF WORKER IMPRESSION: No mammographic evidence of malignancy. RECOMMENDATION: [...] 1:03 PM . Narrative 03/14/2021 1:03 PM SAWMILL RELIEF WORKER EXAMINATIONS: 1. ??DIGITAL MAMMO LEFT DIAGNOSTIC WITH [...] The ultrasound is normal. Melani Franklin DO US ORDERABLES documented in this encounter Visit Diagnoses Diagnosis Abnormal mammogram Abnormal mammogram, unspecified documented in this encounter Care Teams Caddie Relationship Specialty Start Date End Date Melani Franklin DO [address] [place] [address] [address] [place] [address] PCP - General Internal Medicine 07/31/17 documented as of this encounter
--- OUTSIDE RECORDS SUMMARY | 2024-02-21 16:22 | XMS_ITS | Encounter Summary ---
Author Organization [facility] Address [facility] [facility] [place] [address] Care Team Providers Care Senior Project Manager Name Role Phone Melani Franklin DO Primary Care Provider [phone] Encounter Details Date Type Department Care Team (Latest Contact Info) Description 11/29/2023 Travel Social History Tobacco Use Types Packs/Day Years Used Date Smoking Tobacco: Never Assessed Sex and Gender Information Value Date Recorded Sex Assigned at Female 11/22/2023 12:56 PM CDT Gender Identity Female 11/22/2023 12:56 PM CDT Sexual Orientation Straight 11/22/2023 12 :56 PM CDT documented as of this encounter Plan of Treatment Not on file documented as of this encounter Visit Diagnoses Not on filedocumented in this encounter Care Teams Senior Project Manager Relationship Specialty Start Date End Date Melani Franklin DO [address] [facility] [address] [place] [address] PCP - General Internal Medicine 07/31/17 documented as of this encounter
--- OUTSIDE RECORDS SUMMARY | 2024-02-21 16:22 | XMS_ITS | Encounter Summary ---
Author Organization [facility] Address [address] [place] [address] Phone Care Team Providers Care Sales And Retail Management Recruiter Name Role Phone Melani Franklin Linda Primary Care Provider [phone] Reason for Visit * Reason Comments OT Treatment * Consultation (Routine) - Authorized Specialty Diagnoses / Procedures Referred By Contact Referred To Contact Occupational Therapy Diagnoses Pain of left thumb Arthritis of carpometacarpal (CMC) joint of left thumb Anurag Franklin MD [address] [facility] [address] [place] [address] Phone: tel:[phone] fax: [facility] (All Locations) Referral ID Status Reason Start Date Expiration Date Visits Requested Visits Authorized [id number] Authorized Specialty Services Required 04/20/2023 05/19/2024 24 24 Encounter Details Date Type Department Care Team (Late st Contact Info) Description 05/02/2023 2:00 PM IMPACT HAMMER OPERATOR Therapy [facility] Occupational Therapy [address] [facility] 1st Floor [address] [place] [id number] [place] [address] [address] [place] [address] Pain of left thumb (Primary Dx) Social [...] on file Legal Sex Female 12:36 PM IMPACT HAMMER OPERATOR Gender Identity Female 12/10/2020 10:46 AM CDT Sexual Orientation Not on file documented as of this encounter Progress Notes * Khalida Carey, OT - 05/02/2023 2:00 PM CST PROGRESS NOTE Name: Jody Mason : 1970 [...] years ago Cause of injury: failed arthroplasty 6 weeks post op Subjective: Patient voices that her thumb is doing better. [] Mental health status discussed Details: Pain:0/10. Objective: 04/27/2023 QUICK DASH Open a tight or new jar 4 - Severe Difficulty Do heavy generator mechanic (e.g., wash rivera, floors) 3 - Moderate Difficulty Carry a shopping bag or briefcase 1 - No Difficulty Wash your back 3 - Moderate Difficulty Use a knife to cut food 4 - Severe Difficulty Recreational activities in which you take some force or impact through your arm, shoulder, or hand (e.g., golf, hammering, tennis, etc.) 3 - Moderate Difficulty During the past week, to what extent has your arm, shoulder, or hand problem interfered with your normal social activities with family, friends, neighbours or groups? 3 - Moderately During the past week, were you limited in your work or other regular daily activities as a result of your arm, shoulder or hand problem? 4 - Very Limited Arm, shoulder or hand pain 3 - Moderate Tingling (pins and needles) in your arm, shoulder or hand 2 - Mild During the past week, how much difficulty have you had sleeping because of the pain in your arm, shoulder or hand? 1 - No Difficulty Quick DASH Disability/Symptom Score: 45.45 01/25/2021 03/08/2021 12/06/2021 03/06/2023 03/30/2023 04/20/2023 PROMIS Upper Extremity V2.0 30.2 36.7 45.3 26.6 35.8 36.6 Pain Interference 60.4 53.9 52.6 62.9 64 58 Physical Function V2.0 46.1 48.2 51.4 37.5 32 42.4 Anxiety V1.0 51.2 45.7 53.1 62.1 58.3 51.2 Depression 42.9 41.7 45.8 53.3 46.1 41.7 Active Thumb Range of Motion Right Left MP extension/ flexion MP extension/ flexion NT/18 IP extension/flexion IP extension/flexion NT/51 Palmar abduction Palmar abduction 38 Radial abduction Radial abduction NT Opposition Opposition To RF tip without hyperextension Other: Other: WF/WE AROM EDEMA Thumb Right Left P1 IP P2 P1 IP P2 Thumb Thumb 6.0 6.1 Treatment provided: -MHP to improve tissue extensibility -Adductor release -PROM: thumb abduction, thumb MP flexion, WE/WF -AROM: -Closed chain WE/WF -AROM thumb PAB, serial opposition -Fabricated a hand based thumb support splint: to wear during light activities. She is to continue wearing her forearm based thumb spica splint at night time, during travels, and heavy activities. -Advanced HEP: -Thumb PAB and serial O using light objects for thumb stabilization. -Adductor release massage -Composite flexion with gravity assist -Synergistic WE/WF Assessment: Jody has tightness in her extrinsic wrist and finger extensor muscles. Her MP flexion is tight, but improving. She may have improved wrist motions with introduction of hand based splint.Her hyperextension in MP is improving, but she does still collapse a bit but not as often. Plan: 1x/week. Check fit of hand based splint and forearm based splint. GOALS: Goal Status / Date Updated Due by: STG1 Patient will verbalize understanding of purpose, care, wearing schedule, and precaution with orthosis. MET STG2 Patient will be able to hold MP in neutral and not hyperextension without support. ongoing 06/19/23 STG3 Patient will be able to oppose thumb to SF tip for in hand manipulation of cooking tools. ongoing 06/19/23 LTG1 Patient will be able to oppose thumb to SF base to manipulate to braid her daughter's hair. New 04/20/2023 07/19/23 LTG2 New 04/20/2023 LTG3 New 04/20/2023 Start time: 14:05 End Time: 15:00 Khalida Carey OTR/Abisai, CHT If the patient does not return to therapy this will serve as a discharge summary. CT HAMMER OPERATOR documented in this encounter Plan of Treatment Not on file documented as of this encounter Visit Diagnoses Diagnosis Pain of left thumb- Primary documented in this encounter Care Teams Sales And Retail Management Recruiter Relationship Specialty Start Date End Date Melani Franklin DO [address] [facility] [address] [place] [address] PCP - General Internal Medicine 10/05/20 documented as of this encounter
--- OUTSIDE RECORDS SUMMARY | 2024-02-21 16:22 | XMS_ITS | Encounter Summary ---
Author Organization [facility] Address [address] [place] [address] Phone Care Team Providers Care Ribbon Weaver Name Role Phone Melani Franklin Linda Primary Care Provider [phone] Reason for Visit * Reason Comments OT Treatment * Consultation (Routine) - Authorized Specialty Diagnoses / Procedures Referred By Contact Referred To Contact Occupational Therapy Diagnoses Pain of left thumb Arthritis of carpometacarpal (CMC) joint of left thumb Anurag Franklin MD [address] [facility] [address] [place] [address] Phone: tel:[phone] fax:[phone] [facility] (All Locations) Referral ID Status Reason Start Date Expiration Date Visits Requested Visits Authorized [id number] Authorized Specialty Services Required 04/20/2023 05/19/2024 24 24 Encounter Details Date Type Department Care Team (Late st Contact Info) Description 05/16/2023 10:30 AM CDT Therapy [facility] Occupational Therapy [address] [facility] 1st Floor [address] [place] [id number] [place] [address] [place], [place] [id number] Pain of left thumb (Primary Dx) Social [...] on file Legal Sex Female 12:36 PM OCEAN EXPORT COORDINATOR Gender Identity Female 12/10/2020 10:46 AM CDT Sexual Orientation Not on file documented as of this encounter Progress Notes * Khalida Carey, OT - 05/16/2023 10:30 AM CDT PROGRESS NOTE Name: Jody Mason : [...] years ago Cause of injury: failed arthroplasty 8 weeks post op Subjective: Patient voices that she is doing better. [] Mental health status discussed Details: Pain:3-4/10 on radial side of wrist at end of session. Objective: 01/25/2021 03/08/2021 12/06/2021 03/06/2023 03/30/2023 04/20/2023 PROMIS Upper Extremity V2.0 30.2 36.7 45.3 26.6 35.8 36.6 Pain Interference 60.4 53.9 52.6 62.9 64 58 Physical Function V2.0 46.1 48.2 51.4 37.5 32 42.4 Anxiety V1.0 51.2 45.7 53.1 62.1 58.3 51.2 Depression 42.9 41.7 45.8 53.3 46.1 41.7 Active Thumb Range of Motion Right Left MP extension/ flexion MP extension/ flexion NT/35 IP extension/flexion IP extension/flexion NT/52 Palmar abduction Palmar abduction 44 Radial abduction Radial abduction NT due to tendency to hyperextend at MP Opposition Opposition To SF PIP joint without hyperextension Other: Other: 60/42 WF/WE AROM EDEMA Thumb Right Left P1 IP P2 P1 IP P2 Thumb Thumb 5.8 6.0 Treatment provided: -Deferred MHP due to tendency to lax MP joint -Adductor release and massage -PROM: thumb abduction, thumb MP flexion, WF/WE -AROM: to train on O posture during pinching and to widen first webspace -Cone twisting and stacking -Marbles order picker -Wrist proprioception with marbles in container -Trimmed down a hand based thumb support splint: to improve ease with donning/doffing -Continued HEP: -Thumb PAB and serial O using light objects for thumb stabilization. -Adductor release massage -Wrist flexion stretch -Thumb MP flexion stretch Assessment: Jody'liliya MP is able to maintain a flexed position during functional tasks with improved flexibility. Plan: 1x/every 1-2 weeks. Continue to monitor to ensure that thumb MP does not hyperextend with return to functional activities. Updated MD orders required after: 07/19/23 GOALS: [...] New 04/20/2023 LTG3 New 04/20/2023 Start time: 10:35 End Time: 11:15 Khalida Carey, OTR/L, CHT If the patient does not return to therapy this will serve as a discharge summary. documented in this encounter Plan of Treatment Not on file documented as of this encounter Visit Diagnoses Diagnosis Pain of left thumb- Primary documented in this encounter Care Teams Ribbon Weaver Relationship Specialty Start Date End Date Melani Franklin DO [address] [facility] [address] [place] [address] PCP - General Internal Medicine 10/05/20 documented as of this encounter
--- OUTSIDE RECORDS SUMMARY | 2024-02-21 16:22 | XMS_ITS | Encounter Summary ---
Author Organization [facility] Address [facility] [facility] [place] [address] Care Team Providers Care Audit Practice Intern Name Role Phone Melani Franklin DO Primary Care Provider [phone] Reason for Visit * Radiology Services (Routine) - Open Specialty Diagnoses / Procedures Referred By Tyrone baxter Referred To Contact Mammography Diagnoses Breast asymmetry Procedures Mammo Right Implant Dx W Denis Mammo Right Diagnostic W Denis Melani Franklin, DO [address] [facility] [address] [place] [address] [facility] [address] [place] [address] Referral ID Status Reason Start Date Expiration Date Visits Re quested Visits Authorized [id number] Open 12/03/2023 12/02/2024 1 1 Encounter Details Date Type Department Care Team (Latest Contact Info) Description 01/02/2024 1:14 PM CDT Hospital Encounter [facility] [address] [place] [address] Melani Franklin, DO [address] [facility] [address] [place] [address] Discharge Disposition: Home or Self Care Social [...] Procedure Name Priority Date/Time Associated Diagnosis Comments MAMMO RIGHT IMPLANT DX W DENIS Routine 01/02/2024 2:06 PM CDT Breast asymmetry documented in this encounter Results * Mammo Right Implant Dx W Denis [...] Report dictated by Alec Mariee MD (resident doctor). I, Janis Holley MD have personally reviewed and interpreted this examination/study. > Interpreting Provider: Janis Holley MD on 01/02/2024 3:36 PM Narrative 01/02/2024 3:36 PM CDT EXAMINATIONS: 1. ??RIGHT DIGITAL DIAGNOSTIC MAMMOGRAM AND TOMOSYNTHESIS AND 2. ??LIMITED RIGHT BREAST ULTRASOUND (COMBINED REPORT) LOCATION: [facility] EXAM DATE: ??01/02/2024 HISTORY: Follow-up to [...] findings identified. Melani Franklin DO MAMMO ORDERABLES documented in this encounter Visit Diagnoses Diagnosis Breast asymmetry Other specified disorders of breast documented in this encounter Care Teams Audit Practice Intern Relationship Specialty Start Date End Date Melani Franklin DO [address] [place] [address] [address] [place] [address] PCP - General Internal Medicine 07/31/17 documented as of this encounter
--- OUTSIDE RECORDS SUMMARY | 2024-02-21 16:22 | XMS_ITS | Encounter Summary ---
Author Organization [facility] Address [address] [place] [address] [place] [address] Care Team Providers Care Patient Coordinator Front Desk Name Role Phone Melani Franklin DO Primary Care Provider [phone] Reason for Visit * Radiology Services (Routine) - Closed Specialty Diagnoses / Procedures Referred By Tyrone t Referred To Contact Mammography Diagnoses Visit for screening mammogram Procedures MAMMO BILAT SCREENING MAMMO BILAT SCREENING Eben Lainez MD [address] [facility] [address] [address] Referral ID Status Reason Start Date Expiration Date Visits Re quested Visits Authorized [id number] Closed 07/30/2018 2019 1 1 Encounter Details Date Type Department Care Team (Latest Contact Info) Description 08/06/2018 8:26 AM CDT - 08/06/2018 11:59 PM CDT Hospital Encounter [facility] BREAST CENTER [address] [place] [id number] Melani Franklin DO [address] [facility] [address] [place] [address] Discharge Disposition: Home or Self Care Social [...] Name Priority Date/Time Associated Diagnosis Comments MAMMO BILAT SCREENING Routine 08/06/2018 8:39 AM CDT Visit for screening mammogram documented in this encounter Results * MAMMO BILAT SCREENING (08/06/2018 8:39 AM CDT) Anatomical Region Laterality Modality Breast Bilateral Mammography 08/07/2018 9:31 AM CDT Impressions 08/07/2018 10:22 AM CDT IMPRESSION: No mammographic evidence of malignancy. ASSESSMENT: BI-RADS Category 2: Benign finding(s). RECOMMENDATION: Bilateral screening mammogram in one year. I, Dr. ALYSA HDZ M.D. have personally reviewed and interpreted this examination/study. This report was electronically signed by ALYSA HDZ M.D. ??on 08/07/2018 10:22 AM . Narrative 08/07/2018 10:22 AM CDT BILATERAL SCREENING MAMMOGRAM DATE: 08/06/2018. COMPARISON: Multiple prior mammograms, most recently 07/31/2017 and dating back to 04/24/2011. HISTORY: Screening mammogram. TECHNIQUE: Images were performed using 3D tomosynthesis images with reconstructed/synthetic 2D images and CAD analysis. BREAST COMPOSITION: There are scattered areas of fibroglandular density. FINDINGS: Bilateral subpectoral silicone implants are again seen. There is no suspicious mass, clustered microcalcification, or architectural distortion in either breast on 2D or 3D images. There has been no change in the mammographic appearance compared with the prior study. Eben Lainez MD MAMMO ORDERABLES documented in this encounter Visit Diagnoses Diagnosis Visit for screening mammogram Other screening mammogram documented in this encounter Care Teams Patient Coordinator Front Desk Relationship Specialty Start Date End Date Melani Franklin DO [address] [facility] [address] [place] [address] PCP - General Internal Medicine 07/31/17 documented as of this encounter
--- OUTSIDE RECORDS SUMMARY | 2024-02-21 16:22 | XMS_ITS | Encounter Summary ---
Author Organization [facility] Address [facility] [facility] [place] [address] Care Team Providers Care Vice President Media Relations Name Role Phone Eben Lainez MD Primary Care Provider Reason for Visit * Radiology Services - Closed Specialty Diagnoses / Procedures Referred By Contangelina t Referred To Contact Diagnoses Other screening mammogram Procedures FINA SCREENING DIGITAL IMAGE BILATERAL G0202 Eben Lainez MD [address] [place] [address] Referral ID Status Reason Start Date Expiration Date Visits Re quested Visits Authorized [id number] Closed 06/16/2014 12/13/2014 1 1 Encounter Details Date Type Department Care Team (Latest Contact Info) Description 06/16/2014 9:36 AM CDT - 06/16/2014 11:59 PM CDT Hospital Encounter [facility] Breast Care [address] [facility] [address] [place] [address] Eben Lainez MD [address] [address] Discharge Disposition: Home or Self Care Social [...] Associated Diagnosis Comments MAMMO BILAT SCREENING Routine 06/16/2014 9:57 AM CDT Other screening mammogram documented in this encounter Results * FINA SCREENING DIGITAL IMAGE BILATERAL G0202 (06/16/2014 9:57 AM CDT) Anatomical Region Laterality Modality Breast Bilateral Mammography 06/23/2014 10:0 5 AM CDT Narrative 06/23/2014 10:07 AM CDT EXAMINATION: Digital screening mammogram on 06/16/2014. PRIOR: 2011 [facility] breast center now available FINDINGS: Computer assisted detection was utilized. ?? Tissue is heterogeneously dense. Patient is status post mammoplasty since the prior study. Implants have been revised since the prior study. No suspicious areas are noted. Risk assessment calculation: Based on the information provided by your patient, her lifetime risk of breast cancer is intermediate (calculated at 11% by the BRCAPRO model, 8% by the Robin model, 14% by the Lisa model, and 19% by the Tyrer-Cuzick model). Please note this information is only as accurate as the data entered by the patient. ASSESSMENT: BIRADS Category 2: BENIGN FINDINGS. RECOMMENDATION: Screening mammogram in one year. Thank you for allowing us to participate in the care of your patient. [facility] Breast Care utilizes PLDT as a reminder system to notify patients of their next recommended mammogram. Eben Lainez MD MAMMO ORDERABLES documented in this encounter Visit Diagnoses Diagnosis Other screening mammogram documented in this encounter Care Teams Vice President Media Relations Relationship Specialty Start Date End Date Eben Lainez MD [address] [address] PCP - General 07/01/10 07/30/17 documented as of this encounter
--- OUTSIDE RECORDS SUMMARY | 2024-02-21 16:22 | XMS_ITS | Encounter Summary ---
Author Organization [facility] Address [address] [facility] [place] [address] Care Team Providers Care Asbestos Abatement Technician Name Role Phone Melani Franklin DO Primary Care Provider [phone] Reason for Visit * Radiology Services (Routine) - Closed Specialty Diagnoses / Procedures Referred By Tyrone baxter Referred To Contact Diagnoses Screening mammogram for breast cancer Procedures Mammo Bilat Implant Screen W Denis Mammo Bilat Screening W DenisMelani Anderson DO [address] [facility] [address] [place] [address] [address] Referral ID Status Reason Start Date Expiration Date Visits Re quested Visits Authorized [id number] Closed 11/19/2023 11/18/2024 1 1 Encounter Details Date Type Department Care Team (Latest Contact Info) Description 11/23/2023 10:48 AM CDT - 11/23/2023 11:59 PM CDT Hospital Encounter [facility] [address] [place] [address] Eben Lainez MD [address] [address] Discharge Disposition: Home or Self Care Social History Tobacco Use Types Packs/Day Years Used Date Smoking Tobacco: Never Assessed Sex and Gender Information Value Date Recorded Sex Assigned at Female 11/22/2023 12:56 PM CDT Gender Identity Female 11/22/2023 12:56 PM CDT Sexual Orientation Straight 11/22/2023 12 :56 PM CDT documented as of this encounter Last Filed Vital Signs Vital Sign Reading Time Taken Comments Blood Pressure - - Pulse - - Temperature - - Respiratory Rate - - Oxygen Saturation - - Inhaled Oxygen Concentration - - Weight 55.3 kg (122 lb) 11/23/2023 11:33 AM CDT Height 157.5 cm (5' 2 ) 11/23/2023 11:33 AM CDT Body Mass Index 22.31 11/23/2023 11:33 AM CDT documented in this encounter Plan of Treatment Not on file documented as of this encounter Procedures Procedure Name Priority Date/Time Associated Diagnosis Comments MAMMO BILAT IMPLANT SCREEN W DENIS Routine 11/23/2023 11:21 AM CDT Screening mammogram for breast cancer documented in this encounter Results * Mammo Bilat Implant Screen W Denis [...] EVALUATION. Report dictated by Jose Martinez MD (anesthesiology resident). Joaquina Bartlett MD (breast imaging fellow) and Alex Dougherty MD (medical resident) assisted in the interpretation of this study. I, Janis Holley MD have personally reviewed and interpreted this examination/study. > Interpreting Provider: Janis Holley MD on 11/28/2023 2:20 PM Narrative 11/28/2023 2:20 PM CDT EXAMINATIONS: BILATERAL DIGITAL SCREENING MAMMOGRAM WITH IMPLANTS AND BILATERAL BREAST TOMOSYNTHESIS LOCATION: [facility] EXAM DATE: ??11/23/2023 HISTORY: Screening. History of [...] most recent from 04/11/2022 performed at [facility]. TECHNIQUE: ??Bilateral synthetic 2-D digital mammogram [...] No change. Melani Franklin DO MAMMO ORDERABLES documented in this encounter Visit Diagnoses Diagnosis Screening mammogram for breast cancer documented in this encounter Care Teams Asbestos Abatement Technician Relationship Specialty Start Date End Date Melani Franklin DO [address] [facility] [address] [place] [address] PCP - General Internal Medicine 07/31/17 documented as of this encounter
--- OUTSIDE RECORDS SUMMARY | 2024-02-21 16:22 | XMS_ITS | Encounter Summary ---
Author Organization [facility] Address [address] [place] [address] Phone Care Team Providers Care Sewage Disposal Worker Name Role Phone Melani Franklin Linda Primary Care Provider [phone] Reason for Visit * Reason Comments OT Treatment * Consultation (Routine) - Authorized Specialty Diagnoses / Procedures Referred By Contact Referred To Contact Occupational Therapy Diagnoses Pain of left thumb Arthritis of carpometacarpal (CMC) joint of left thumb Anurag Franklin MD [address] [facility] [address] [place] [address] Phone: tel:[phone] fax:[phone] [facility] (All Locations) Referral ID Status Reason Start Date Expiration Date Visits Requested Visits Authorized [id number] Authorized Specialty Services Required 04/20/2023 05/19/2024 24 24 Encounter Details Date Type Department Care Team (Late st Contact Info) Description 05/09/2023 9:30 AM WARP STARTER Therapy [facility] Occupational Therapy [address] [facility] 1st Floor [address] [place] [id number] [place] [address] [address] [place] [address] Pain of left thumb (Primary Dx) Social [...] on file Legal Sex Female 12:36 PM WARP STARTER Gender Identity Female 12/10/2020 10:46 AM CDT Sexual Orientation Not on file documented as of this encounter Progress Notes * Khalida Carey, OT - 05/09/2023 9:30 AM CST PROGRESS NOTE Name: Jody Mason : [...] years ago Cause of injury: failed arthroplasty 7 weeks post op Subjective: Patient voices that her wrist is a bit more sore today, but I am doing more. [] Mental health status discussed Details: Pain:2-3/10 on radial side of wrist. Objective: 01/25/2021 03/08/2021 12/06/2021 03/06/2023 03/30/2023 04/20/2023 PROMIS Upper Extremity V2.0 30.2 36.7 45.3 26.6 35.8 36.6 Pain Interference 60.4 53.9 52.6 62.9 64 58 Physical Function V2.0 46.1 48.2 51.4 37.5 32 42.4 Anxiety V1.0 51.2 45.7 53.1 62.1 58.3 51.2 Depression 42.9 41.7 45.8 53.3 46.1 41.7 Active Thumb Range of Motion Right Left MP extension/ flexion MP extension/ flexion NT/21 IP extension/flexion IP extension/flexion NT/55 Palmar abduction Palmar abduction 38 Radial abduction Radial abduction NT due to tendency to hyperextend at MP Opposition Opposition To RF tip without hyperextension Other: Other: 55/35 WF/WE AROM EDEMA Thumb Right Left P1 IP P2 P1 IP P2 Thumb Thumb 5.7 5.9 Treatment provided: -Deferred MHP due to tendency to lax MP joint -Adductor release and massage -PROM: thumb abduction, thumb MP flexion, WF -AROM: to train on O posture during pinching and to widen first webspace -Cone twisting and stacking -Pegboard grasp -2 point gentle pinch of various beads -Modified a hand based thumb support splint: to increase MP flexion -Advanced HEP: -Thumb PAB and serial O using light objects for thumb stabilization. -Adductor release massage -Wrist flexion stretch -Thumb MP flexion stretch Assessment: Jody's MP is able to maintain a neutral or slight flexed position during functional tasks. Plan: 1x/week. GOALS: Goal Status / Date Updated Due [...] New 04/20/2023 LTG3 New 04/20/2023 Start time: 09:35 End Time: 10:25 Khalida Carey OTR/Abisai, CHT If the patient does not return to therapy this will serve as a discharge summary. STARTER documented in this encounter Plan of Treatment Not on file documented as of this encounter Visit Diagnoses Diagnosis Pain of left thumb- Primary documented in this encounter Care Teams Sewage Disposal Worker Relationship Specialty Start Date End Date Melani Franklin DO [address] [facility] [address] [place] [address] PCP - General Internal Medicine 10/05/20 documented as of this encounter
--- OUTSIDE RECORDS SUMMARY | 2024-02-21 16:22 | XMS_ITS | Encounter Summary ---
Author Organization [facility] Address [facility] [place] [address] Care Team Providers Care Tool Design Drafter Name Role Phone Eben Lainez MD Primary Care Provider Reason for Referral * Radiology Services (Routine) - Closed Specialty Diagnoses / Procedures Referred By Tyrone baxter Referred To Contact Diagnoses Visit for screening mammogram Procedures FINA SCREENING DIGITAL IMAGE BILATERAL G0202 Eben Lainez MD [address] [place] [phone] Referral ID Status Reason Start Date Expiration Date Visits Re quested Visits Authorized [id number] Closed 06/22/2016 12/19/2016 1 1 Reason for Visit * Radiology Services (Routine) - Closed Specialty Diagnoses / Procedures Referred By Tyrone baxter Referred To Contact Diagnoses Visit for screening mammogram Procedures FINA SCREENING DIGITAL IMAGE BILATERAL G0202 Eben Lainez MD [address] [address] Referral ID Status Reason Start Date Expiration Date Visits Re quested Visits Authorized [id number] Closed 06/22/2016 12/19/2016 1 1 Encounter Details Date Type Department Care Team (Latest Contact Info) Description 06/22/2016 10:20 AM CDT - 06/22/2016 11:59 PM CDT Hospital Encounter [facility] Breast Care [address] [facility] [address] [place] [address] Eben Lainez MD [address] [phone] Discharge Disposition: Home or Self Care Social [...] Associated Diagnosis Comments MAMMO BILAT SCREENING Routine 06/22/2016 10:40 AM CDT Visit for screening mammogram documented in this encounter Results * FINA SCREENING DIGITAL IMAGE BILATERAL G0202 (06/22/2016 10:40 AM CDT) Anatomical Region Laterality Modality Breast Bilateral Mammography 06/22/2016 11:2 2 AM CDT Impressions 06/22/2016 12:07 PM CDT No mammographic evidence of malignancy in either breast. ASSESSMENT: BIRADS Category 2: Benign finding(s). RECOMMENDATION: Bilateral screening mammogram in one year. 2. Based on breast density and intermediate lifetime risk of breast cancer according to risk assessment calculation, bilateral screening ultrasound could be considered as a supplemental screening examination. If you or your patient have questions regarding this test or recommendation, please call [phone] and ask to speak with a breast radiologist. Thank you for allowing us to participate in the care of your patient. [facility] Breast Care utilizes [employer] as a reminder system to notify patients of their next recommended mammogram. I, Luna Rodriguez, have personally reviewed the images and I agree with this report. Narrative 06/22/2016 12:07 PM CDT EXAMINATION: Digital screening mammogram on 06/22/2016. Low-dose full-field digital breast tomosynthesis examination was performed with synthetic 2D images and 3D acquisitions. Computer assisted detection was utilized. PRIOR: Multiple prior mammograms, most recently 06/16/2014 and 04/24/2011. BREAST PARENCHYMAL DENSITY: The breasts are heterogeneously dense, which may obscure small masses. RISK ASSESSMENT CALCULATION: Based on the information provided by your patient, her lifetime risk of breast cancer is intermediate (15-20%) (calculated at 7% by the BRCAPRO model, 19% by the Tyrer-Cuzick v6 model, 8% by the Robin model, and 10% by the Lisa model). Please note this information is only as accurate as the data entered by the patient. FINDINGS: Bilateral retroglandular silicone implants are present. No suspicious masses, areas of architectural distortion or microcalcifications are evident on synthetic 2D mammogram or tomosynthesis images. There has been no significant interval change since the prior examination. Eben Lainez MD MAMMO ORDERABLES documented in this encounter Visit Diagnoses Diagnosis Visit for screening mammogram Other screening mammogram documented in this encounter Care Teams Tool Design Drafter Relationship Specialty Start Date End Date Eben Lainez MD [address] [place] [phone] PCP - General 07/01/10 07/30/17 documented as of this encounter
--- OUTSIDE RECORDS SUMMARY | 2024-02-21 16:22 | XMS_ITS | Encounter Summary ---
Author Organization [facility] Address [address] [place], [place] [address] [address] Care Team Providers Care Cae Engineer Name Role Phone Melani Franklin DO Primary Care Provider Reason for Referral * Radiology Services (Routine) - Closed Specialty Diagnoses / Procedures Referred By Tyrone baxter Referred To Contact Mammography Diagnoses Abnormal mammogram Procedures MAMMO LEFT DIAGNOSTIC W Melani Yee, DO [address] [facility] [address] [place] [address] [facility] Breast Center [address] [place] [address] Referral ID Status Reason Start Date Expiration Date Visits Re quested Visits Authorized [id number] Closed 02/23/2021 02/23/2022 1 1 RWATER ROBOTICIST Reason for Visit * Radiology Services (Routine) - Closed Specialty Diagnoses / Procedures Referred By Tyrone baxter Referred To Contact Mammography Diagnoses Abnormal mammogram Procedures MAMMO LEFT DIAGNOSTIC W Melani Yee, DO [address] [facility] [address] [place] [address] [facility] Breast Center Op [address] [place] [address] Referral ID Status Reason Start Date Expiration Date Visits Re quested Visits Authorized [id number] Closed 02/23/2021 02/23/2022 1 1 Encounter Details Date Type Department Care Team (Latest Contact Info) Description 03/14/2021 9:22 AM UNDERWATER ROBOTICIST - 03/14/2021 9:46 AM UNDERWATER ROBOTICIST Hospital Encounter [facility] BREAST CENTER [address] [place] [address] Melani Franklin [address] [facility] [address] [place] [address] Discharge Disposition: Home or Self Care Social [...] COVID-19? No / Unsure 03/14/2021 8:32 AM UNDERWATER ROBOTICIST documented as of this encounter Plan of Treatment Not on file documented as of this encounter Procedures Procedure Name Priority Date/Time Associated Diagnosis Comments MAMMO LEFT DIAGNOSTIC W DENIS Routine 03/14/2021 9:35 AM UNDERWATER ROBOTICIST Abnormal mammogram documented in this encounter Results * MAMMO LEFT DIAGNOSTIC W DENIS (03/14/2021 9:35 AM UNDERWATER ROBOTICIST) Anatomical Region Laterality Modality Breast Left Mammography 03/14/2021 10:0 0 AM UNDERWATER ROBOTICIST Impressions 03/14/2021 1:03 PM UNDERWATER ROBOTICIST IMPRESSION: No mammographic evidence of malignancy. RECOMMENDATION: [...] 1:03 PM . Narrative 03/14/2021 1:03 PM UNDERWATER ROBOTICIST EXAMINATIONS: 1. ??DIGITAL MAMMO LEFT DIAGNOSTIC WITH [...] is normal. Melani Franklin DO MAMMO ORDERABLES documented in this encounter Visit Diagnoses Diagnosis Abnormal mammogram Abnormal mammogram, unspecified documented in this encounter Care Teams Cae Engineer Relationship Specialty Start Date End Date Melani Franklin DO [address] [facility] [address] [place] [address] PCP - General Internal Medicine 07/31/17 documented as of this encounter
--- OUTSIDE RECORDS SUMMARY | 2024-02-21 16:22 | XMS_ITS | Encounter Summary ---
Author Organization [facility] Address [address] [place] [address] Phone Care Team Providers Care Counter Waiter Name Role Phone Melani Franklin DO Primary Care Provider [phone] Encounter Details Date Type Department Care Team (Late st Contact Info) Description 04/20/2023 Plan of Care Documentation [facility] Occupational Therapy [address] [facility] 1st Floor [address] [place] [address] Social History Tobacco Use Types Packs/Day Years Used Date Smoking Tobacco: Former Cigarettes 1 14 1 993 - 2006 Smokeless Tobacco: Never AUDIT-C Answer Date Recorded [...] on file Legal Sex Female 12:36 PM DISPLAY ARTIST Gender Identity Female 12/10/2020 10:46 AM CDT Sexual Orientation Not on file documented as of this encounter Plan of Treatment Not on file documented as of this encounter Visit Diagnoses Not on filedocumented in this encounter Care Teams Counter Waiter Relationship Specialty Start Date End Date Melani Franklin DO [address] [facility] [address] [place] [address] PCP - General Internal Medicine 10/05/20 documented as of this encounter
--- OUTSIDE RECORDS SUMMARY | 2024-02-21 16:22 | XMS_ITS | Encounter Summary ---
Author Organization [facility] Address [address] [place] [address] Phone Care Team Providers Care Elementary Education Tutor Name Role Phone Melani Franklin Primary Care Provider [phone] Reason for Visit * Reason Comments Follow-up Encounter Details Date Type Department Care Team (Latest Contact Info) Description 05/29/2023 12:50 PM CDT Office Visit [facility] Orthopaedic Surgery [address] [facility] 6th [place] [address] [place] [address] Anurag Franklin MD [address] [facility] [address] [place] [address] Arthritis of carpometacarpal (CMC) joint of left thumb (Primary Dx) Social History [...] on file Legal Sex Female 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 She is now 10 weeks out after revision arthroplasty of her left thumb base. She really does look quite good. No prominence of the base of the thumb metacarpal. No pain. Good healing of all skin incisions.. IMPRESSION/TREATMENT PLAN I have told Jody that she can gradually discontinue all therapy and splinting. She can begin to gently increase her loading of the thumb and increased strength. I will see her back on an as-needed basis. Anurag Franklin M.D., MSc, FRCS(C) Professor [facility] Orthopedics documented in this encounter Plan of Treatment Not on file documented as of this encounter Visit Diagnoses Diagnosis Arthritis of carpometacarpal (CMC) joint of left thumb- Primary documented in this encounter Care Teams Elementary Education Tutor Relationship Specialty Start Date End Date Melani Franklin DO [address] [facility] [address] [place] [address] PCP - General Internal Medicine 10/05/20 documented as of this encounter
--- OUTSIDE RECORDS SUMMARY | 2024-02-21 16:22 | XMS_ITS | Encounter Summary ---
Author Organization [facility] Address [facility]3 [facility] [place] [address] Care Team Providers Care Environmental Solutions Engineer Name Role Phone Melani Franklin DO Primary Care Provider [phone] Encounter Details Date Type Department Care Team (Latest Contact Info) Description 01/02/2024 Travel Social History Tobacco Use Types Packs/Day [...] on filedocumented in this encounter Care Teams Environmental Solutions Engineer Relationship Specialty Start Date End Date Melani Franklin DO [address] [facility] [address] [place] [address] PCP - General Internal Medicine 07/31/17 documented as of this encounter
--- OUTSIDE RECORDS SUMMARY | 2024-02-21 16:22 | XMS_ITS | Encounter Summary ---
Author Organization [facility] Address [facility] [place] [address] Care Team Providers Care Airplane Flight Attendant Supervisor Name Role Phone Melani Franklin DO Primary Care Provider Encounter Details Date Type Department Care Team (Latest Contact Info) Description 03/14/2021 Travel Social History Tobacco Use Types Packs/Day [...] COVID-19? No / Unsure 03/14/2021 8:32 AM PAINTER SKI EDGE documented as of this encounter Plan of Treatment Not on file documented as of this encounter Visit Diagnoses Not on filedocumented in this encounter Care Teams Airplane Flight Attendant Supervisor Relationship Specialty Start Date End Date Melani Franklin DO [address] [place] [address] [address] [place] [address] PCP - General Internal Medicine 07/31/17 documented as of this encounter
--- OUTSIDE RECORDS SUMMARY | 2024-02-21 16:22 | XMS_ITS | Encounter Summary ---
Author Organization [facility] Address [facility] [facility] [place] [address] Care Team Providers Care Wing Commander Name Role Phone Melani Franklin DO Primary Care Provider [phone] Reason for Visit * Radiology Services (Routine) - Closed Specialty Diagnoses / Procedures Referred By Tyrone baxter Referred To Contact Mammography Diagnoses Screening breast examination Procedures MAMMO BILAT IMPLANT SCREEN W DENIS MAMMO BILAT SCREENING W DENISMelani Perez DO [address] [facility] [address] [place] [address] [facility] Breast Center [address] [place] [address] Referral ID Status Reason Start Date Expiration Date Visits Re quested Visits Authorized [id number] Closed 02/09/2021 02/09/2022 1 1 Encounter Details Date Type Department Care Team (Latest Contact Info) Description 02/22/2021 2:59 PM TELETYPIST - 02/22/2021 11:59 PM TELETYPIST Hospital Encounter [facility] [address] [place] [address] Discharge Disposition: Home or Self Care Social [...] have Coronavirus / COVID-19? No / Unsure 02/22/2021 2:44 PM TELETYPIST documented as of this encounter Plan of Treatment Not on file documented as of this encounter Procedures Procedure Name Priority Date/Time Associated Diagnosis Comments MAMMO BILAT IMPLANT SCREEN W DENIS Routine 02/22/2021 3:52 PM TELETYPIST Screening breast examination documented in this encounter Results * MAMMO BILAT IMPLANT SCREEN W DENIS (02/22/2021 3:52 PM TELETYPIST) Anatomical Region Laterality Modality Breast Bilateral Mammography 02/23/2021 7:59 AM TELETYPIST Impressions 02/23/2021 9:27 AM TELETYPIST IMPRESSION: 1. Small asymmetry in the central left breast on the craniocaudal implant displaced view. 2. Stable benign right mammogram. RECOMMENDATION: Diagnostic left mammogram. If indicated at that time, ultrasound will be performed. Patient will be contacted and scheduled to return for the additional imaging. OVERALL ASSESSMENT: ??BI-RADS CATEGORY 0: INCOMPLETE: NEED ADDITIONAL IMAGING EVALUATION. This report was electronically signed by ARTIE GÓMEZ M.D. ??on 02/23/2021 9:27 AM . Narrative 02/23/2021 9:27 AM TELETYPIST EXAMINATION: DIGITAL MAMMO BILAT IMPLANT SCREEN W DENIS AND WITH CAD DATE OF EXAM: ??02/22/2021 3:52 PM HISTORY: ??Screening. History of breast augmentation. RISK ASSESSMENT CALCULATION: Patient completed a breast cancer risk assessment during her appointment. Based upon the information she provided and her mammographic breast density, her lifetime risk of developing breast cancer is 16 ?? % (Average Risk <15%; Intermediate / Moderate Risk 15-19%; High Risk > 20%). COMPARISON: Prior breast imaging studies back to 2019, with the most recent dated 11/24/2019. TECHNIQUE: ??Tomosynthesis (3-D) and reconstructed C - view (synthetic 2-D) images acquired and reviewed in the bilateral craniocaudal and mediolateral oblique implant displaced projections. Bilateral craniocaudal and mediolateral oblique 2-D projections obtained without implant displacement. A total of 9 images were obtained. ?Computer-aided detection (CAD) was utilized. BREAST PARENCHYMAL COMPOSITION: Category B: There are scattered areas of fibroglandular density. FINDINGS: ??There are bilateral silicone breast implants, which limit evaluation of the breast parenchyma Right side: No suspicious findings or evidence of malignancy. No change. Left side. Small asymmetry in the central left breast on the left CC implant displaced view, 3.7 cm from the nipple. This is best seen on the denis synthesis slice 21 out of 60 on the left cc views. Melani Franklin DO MAMMO ORDERABLES documented in this encounter Visit Diagnoses Diagnosis Screening breast examination Other screening breast examination documented in this encounter Care Teams Wing Commander Relationship Specialty Start Date End Date Melani Franklin DO [address] [place] [address] PCP - General Internal Medicine 07/31/17 documented as of this encounter
--- OUTSIDE RECORDS SUMMARY | 2024-02-21 16:22 | XMS_ITS | Encounter Summary ---
Author Organization [facility] Address [facility]3 [facility] [address] Care Team Providers Care Mother Superior Name Role Phone Melani Franklin DO Primary Care Provider [phone] Reason for Referral * Radiology Services (Routine) - Closed Specialty Diagnoses / Procedures Referred By Contac t Referred To Contact Mammography Diagnoses Screening for osteoporosis Procedures Dexa Bone Density Axial Skeleton Eben Lainez MD [address] [address] [facility] [place] [address] [place] [address] Referral ID Status Reason Start Date Expiration Date Visits Re quested Visits Authorized [id number] Closed 10/24/2023 10/23/2024 1 1 Reason for Visit * Radiology Services (Routine) - Closed Specialty Diagnoses / Procedures Referred By Contac t Referred To Contact Mammography Diagnoses Screening for osteoporosis Procedures Dexa Bone Density Axial Skeleton Eben Lainez MD [address] [address] [facility] Breast [place] [address] [place] [address] Referral ID Status Reason Start Date Expiration Date Visits Re quested Visits Authorized [id number] Closed 10/24/2023 10/23/2024 1 1 Encounter Details Date Type Department Care Team (Latest Contact Info) Description 11/23/2023 10:00 AM CDT - 11/23/2023 10:47 AM CDT Hospital Encounter [facility] DIAGNOSTIC RAD OP [address] [place] [address] Eben Lainez MD [address] [phone] Discharge Disposition: Home or Self Care Social [...] Procedure Name Priority Date/Time Associated Diagnosis Comments DEXA BONE DENSITY AXIAL SKELETON Routine 11/23/2023 10:24 AM CDT Screening for osteoporosis documented in this encounter Results * Dexa Bone Density Axial Skeleton (11/23/2023 [...] and below > Dictated by Kandace Alcantar (Chef & Owner) 11/23/2023 10:31 AM Clarita Mattson DO have [...] and below > Dictated by Kandace Alcantar (Chef & Owner) 11/23/2023 10:31AM Clarita Mattson DO have personally reviewed and interpreted this examination/study. > Interpreting Provider: Clarita Antony DO on 11/23/2023 10:35 AM Eben Lainez MD DEXA ORDERABLES documented in this encounter Visit Diagnoses Diagnosis Screening for osteoporosis Special screening for osteoporosis documented in this encounter Care Teams Mother Superior Relationship Specialty Start Date End Date Melani Franklin DO [address] [place] [address] PCP - General Internal Medicine 07/31/17 documented as of this encounter
--- OUTSIDE RECORDS SUMMARY | 2024-02-21 16:22 | XMS_ITS | Clinical Summary ---
Author Organization [facility] Address [address] [place] [address] Care Team Providers Care Mason Apprentice Name Role Phone Melani Franklin DO Primary Care Provider [phone] Allergies Active Allergy Reactions Criticality Noted Date Comments Morphine Headache Low 01/02/2017 Caused bad migraines Trazodone Other (See comments) Low 12/08/2020 Nightmares Medications valACYclovir (VALTREX) 1 gram tabletIndication s:Prophylaxis, Medical,allergy face rash Take 2 tablets (2,000 mg total) by mouth 2 (two) times a day 0 Active escitalopram (LEXAPRO) 20 mg tabletIndication s:Anxiety with Depression Take 0.5 tablets (10 mg total) by mouth every morning 1 Active turmeric root extract 500 mg capsuleIndicatio ns:Anti-inflamma tory Take 3 capsules by mouth every morning Active glucosamine/breezy dr nathan Mckeon sod (OSTEO BI-FLEX ORAL)Indications :Joint health Take 1 capsule by mouth every morning Active cetirizine (ZyrTEC) 10 mg tabletIndication s:Allergic Rhinitis Take 2 tablets (20 mg total) by mouth every morning Active montelukast (SINGULAIR) 10 mg tabletIndication s:Perennial Allergic Rhinitis,Seasona l Allergic Rhinitis Take 1 tablet (10 mg total) by mouth 2 (two) times a day Active ALPRAZolam (XANAX) 0.25 mg tabletIndication s:Insomnia,anxie ty Take 1-2 tablets (0.25-0.5 mg total) by mouth nightly as needed for anxiety or sleep 1 Active albuterol HFA (PROVENTIL HFA,VENTOLIN HFA,PROAIR HFA) 90 mcg/actuation inhaler INHALE 2 PUFFS BY MOUTH EVERY 6 HOURS NEEDED FOR SHORTNESS OF BREATH 2 Active biotin 1 mg tabletIndication s:Hair/skin health Take 1 tablet (1,000 mcg total) by mouth every morning Active buPROPion XL (WELLBUTRIN XL) 150 mg 24 hr tabletIndication s:major depressive disorder Take 1 tablet (150 mg total) by mouth every morning 2 Active lisinopril-hydro CHLOROthiazide (ZESTORETIC) 10-12.5 mg per tabletIndication s:hypertension Take 1 tablet by mouth every morning 2 Active progesterone (PROMETRIUM) 200 mg capsule Take 1 capsule (200 mg total) by mouth every morning 3 Active testosterone 100 mg pelletIndication s:hormone replacement every 4 (four) months Inject pellet under skin every 4 months Active herbal drugs tablet Take by mouth Estrodim tab 2 tab by mouth a bedtime / hormorne replacement Active RESVERATROL ORALIndications: anti oxidant Take 1 tablet by mouth every morning Active multivit-mineral s/folic acid (CENTRUM ADULT 50 PLUS ORAL)Indications :Vitamin Deficiency Prevention Take 1 tablet by mouth every morning Active Panax ginseng root (Ginseng Spanish) 518 mg capsule Take by mouth 2 (two) times a day as needed Red Ginseng tea drinks 1-2 cups of tea daily to helps menopausal symptoms Active HYDROcodone-acet aminophen (NORCO) 5-325 mg per tabletIndication s:Pain Take 1 tablet by mouth every 6 (six) hours as needed for pain 30 tablet 4 Active Active Problems Problem Noted Date Diagnosed Date Thumb pain, left 03/06/2023 Arthritis of carpometacarpal (CMC) joint of left thumb 11/11/2020 Overview (11/11/2020): Added automatically from request for surgery [id number] Mild episode of recurrent major depressive disor annamaria 06/24/2020 Benign hypertension 01/02/2017 Insomnia 01/02/2017 Migraine with aura and witho ut status migrainosus, not intractable 01/02/2017 Postcholecystectomy diarrhea 01/02/2017 Immunizations Name Administration Dates Next Due Heplisav-b (Hepatitis B) 12/05/2014 Influenza, Quadrivalent, Spl it, Intramuscular 10/17/2020 Influenza, Quadrivalent, Spl it, Preservative Free, Intramuscular 11/17/2019,01/07/2019,12/26/2017 Influenza, Trivalent, Cell C ulture-based MDCK, Preservative Free, Antibiotic Free, Intramuscular 01/02/2017 Typhoid Live 12/05/2014 Surgical History Surgery Date Site/Laterality Comments CHOLECYSTECTOMY 03/05/2009 - 03/04/2010 AUGMENTATION MAMMAPLASTY 03/05/2004 - 03/04/2005 Bilateral ABDOMINOPLASTY N/A tummy tuck COCCYGECTOMY tip of tailbone surgery - unknown date TRAPEZIUM RESECTION 12/08/2020 Left TRAPEZIECTOMY - INTERNAL BRACE (Left) COLONOSCOPY 08/26/2020 COLONOSCOPY performed by Barrington Bueno MD at [facility] GI LAB SECTION 03/05/2007 - 03/04/2008 SECTION 03/05/2010 - 03/04/2011 Medical History Medical History Date Comments Arthritis Asthma Hypertension Migraines Motion sickness Family History Medical History Relation Name Comments Alcohol abuse Brother Mental illness Brother Heart disease Father Hypertension Father Arthritis Mother Anesthesia problems Neg Hx Relation Name Status Comments Brother Father Mother Social History Tobacco Use Types Packs/Day Years Used Date Smoking Tobacco: Former Cigarettes 1 14 1 993 - 2006 Smokeless Tobacco: Never Tobacco Cessation:Counseling Given: Not Answered AUDIT-C Answer Date Recorded Q1: How often [...] on file Legal Sex Female 12:36 PM ORDER BOOKER Gender Identity Female 12/10/2020 10:46 AM CDT Sexual Orientation Not on file Obstetrics History Last Filed Vital Signs Vital Sign Reading Time Taken Comments Blood Pressure 123/73 03/21/2023 5:50 PM ORDER BOOKER Pulse 81 03/21/2023 5:50 PM ORDER BOOKER Temperature 36.7 ??C (98.1 ??F) 03/21/2023 5:25 PM CS T Respiratory Rate 21 03/21/2023 5:50 PM ORDER BOOKER Oxygen Saturation 98% 03/21/2023 5:50 PM ORDER BOOKER Inhaled Oxygen Concentration - - Weight 62.6 kg (138 lb) 03/21/2023 12:15 PM ORDER BOOKER Height 157.5 cm (5' 2 ) 03/21/2023 12:15 PM ORDER BOOKER Body Mass Index 25.24 03/21/2023 12:15 PM ORDER BOOKER Plan of Treatment Health Maintenance Due Date Last Done Comments Cervical Cancer Screening 1970 Colon Cancer Screening-Colonoscopy 1970 Depression Screening 1969 Hepatitis C Screening 1969 Regular Well Visit/Exam 18-64 1987 Breast Cancer Screening-Mammogram 04/11/2023 04/11/2022, 04/11/2022, 02/22/2021, Additional history exists Influenza Vaccine (#1) 2023 , 10/17/2020, 11/17/2019, Additional history exists DTaP/Tdap/Td Vaccine (2 - Td or Tdap) 10/18/2031 10/17/2021 Zoster Vaccine Completed 12/22/2021, 10/24/2021 Pneumococcal vaccine <65 Aged Out No longer eligible based on patient's age to complete this topic Medical Devices Implanted Type Area Burrer Marker Axle Device Identifier Shelf Expiration Date Model / Serial / Lot [employer] Ar-8978-Cp Internalbrace Kit Hand Wrist Set Implant Ligament Augmentation - [id number] Implanted:Qty: 1 on 12/08/2020 by Anurag Franklin MD at [facility] Left: Thumb [employer] [id number] 10/02/2025 SIXTO-8978-C P / / [id number] Depuy Mitek Quickanchor Plus Ethibond 2-0 V-5 Mini Crittenden Suture [id number] - [id number] Implanted:Qty: 2 on 03/21/2023 by Anurag Franklin MD at [facility] Left: Wrist Depuy Mitek [id number] 09/02/2027 [id number] / / [id number] Description:Ref [id number] Insurance [facility] Address: [place] [address] [facility] Address: [place] [address] [facility]O [place]: [place] [address] Care Teams Mason Apprentice Relationship Specialty Start Date End Date Melani Franklin DO [address] [facility] [address] [place] [address] PCP - General Internal Medicine 10/05/20
--- OUTSIDE RECORDS SUMMARY | 2024-02-21 16:22 | XMS_ITS | Encounter Summary ---
Author Organization [facility] Address [address] [place] [address] Phone Care Team Providers Care Admissions Counselor Name Role Phone Melani Franklin Linda Primary Care Provider [phone] Reason for Visit * Reason Comments OT Treatment * Consultation (Routine) - Authorized Specialty Diagnoses / Procedures Referred By Contact Referred To Contact Occupational Therapy Diagnoses Pain of left thumb Arthritis of carpometacarpal (CMC) joint of left thumb Anurag Franklin MD [address] [facility] [address] [place] [address] Phone: tel:[phone] fax:[phone] [facility] (All Locations) Referral ID Status Reason Start Date Expiration Date Visits Requested Visits Authorized [id number] Authorized Specialty Services Required 04/20/2023 05/19/2024 24 24 Encounter Details Date Type Department Care Team (Late st Contact Info) Description 04/27/2023 10:30 AM TRANSFER SPECIALIST Therapy [facility] Occupational Therapy [address] [facility] 1st [address] [place] [id number] [place] [address] [address] [place], [place] [id number] Pain of left thumb (Primary Dx) Social [...] on file Legal Sex Female 12:36 PM TRANSFER SPECIALIST Gender Identity Female 12/10/2020 10:46 AM CDT Sexual Orientation Not on file documented as of this encounter Progress Notes * Khalida Carey, OT - 04/27/2023 10:30 AM CST PROGRESS NOTE Name: Jody Mason [...] years ago Cause of injury: failed arthroplasty 5 weeks post op Subjective: Patient voices that [] Mental health status discussed Details: Pain:almost none. Objective: 04/27/2023 QUICK DASH Open a tight or new jar 4 - Severe Difficulty Do heavy health education coordinator (e.g., wash rivera, floors) 3 - Moderate [...] Left MP extension/ flexion MP extension/ flexion NT/15 IP extension/flexion IP extension/flexion NT/35 Palmar abduction Palmar abduction 36 Radial abduction Radial abduction NT Opposition Opposition To RF tip without hyperextension Other: Other: WF/WE AROM EDEMA Right P1 PIP P2 DIP P3 Index Finger Long Finger Ring Finger Small Finger Thumb Right Left P1 IP P2 P1 IP P2 Thumb Thumb DPC, Wrist, Elbow Right Left Distal Palmar Crease Wrist Crease 15.0 Elbow Crease Treatment provided: -MHP to improve tissue extensibility -Adductor release -PROM: thumb abduction, thumb MP flexion, WE/WF -AROM: -Closed chain WE/WF -AROM thumb PAB, serial opposition -Modified splint to widen first webspace and O posturing for MP flexion. To continue to wear at all times except hand hygiene and showering. -Gentle 2 point touch for thumb stability with and without splint on. -Advanced HEP: -Closed chain WE/WF with child's ball to maintain MP flexion -Thumb PAB and serial O using light objects for thumb stabilization. -2 Point touch to each finger to train MP to maintain flexion during functional use. -Adductor release massage Assessment: Jody's MP joint is a bit more stable into neutral to flexion posturing. However, with exercises and 2 point touch, she tends to pull it into slight hyperextension and needs cues to self-correct. Plan: 1x/week. GOALS: Goal Status / Date [...] New 04/20/2023 LTG3 New 04/20/2023 Start time: 10:30 End Time: 11:25 Khalida Carey OTR/L, CHT If the patient does not return to therapy this will serve as a discharge summary. SFER SPECIALIST documented in this encounter Plan of Treatment Not on file documented as of this encounter Visit Diagnoses Diagnosis Pain of left thumb- Primary documented in this encounter Care Teams Admissions Counselor Relationship Specialty Start Date End Date Melani Franklin DO [address] [facility] [address] [place] [address] PCP - General Internal Medicine 10/05/20 documented as of this encounter
--- OUTSIDE RECORDS SUMMARY | 2024-02-21 16:22 | XMS_ITS | Encounter Summary ---
Author Organization [facility] Address [address] [place], [place] [address] [address] Care Team Providers Care Radio Time Buyer Name Role Phone Eben Lainez MD Primary Care Provider [phone] Encounter Details Date Type Department Care Team (Latest Contact Info) Description 07/06/2010 12:01 AM CDT - 07/06/2010 11:59 PM CDT Hospital Encounter [facility] EVAL/TRTMNT [address] [place] [address] Eben Lainez MD [address] [address] Obstetrics Discharge Disposition: Home or Self Care Social History Tobacco Use Types Packs/Day Years Used Date Smoking Tobacco: Never Assessed Comments Yes Sex and Gender Information Value Date Recorded Sex Assigned at Female 11/22/2023 12:56 PM CDT Gender Identity Female 11/22/2023 12:56 PM CDT Sexual Orientation Straight 11/22/2023 12 :56 PM CDT documented as of this encounter Progress Notes * Beatrice Marc - 07/06/2010 12:00 AM CDT Ms. Mason was seen by Beatrice Marc, for genetic counseling on 07/06/2010 in the [facility] EVAL/TRTMNT. Genetics consultation note and patient letter are forthcoming in letters. documented in this encounter Miscellaneous Notes * Miscellaneous Scans - Document, Scanned - 07/09/2010 9:51 PM CDT * Miscellaneous Scans - Document, Scanned - 07/09/2010 9:51 PM CDT documented in this encounter Plan of Treatment Not on file documented as of this encounter Procedures Procedure Name Priority Date/Time Associated Diagnosis Comments CHROMOSOME ANALYSIS AMNIOTIC FLUID STAT 07/06/2010 11:30 AM CDT SONOGRAM - COMPLETE Routine 07/06/2010 1 1:10 AM CDT documented in this encounter Results * CHROMOSOME ANALYSIS AMNIO PANEL (07/06/2010 11:30 AM CDT) Chromosome Analysis Amniotic Fluid See Scanned Report [facility] AMNIOTIC FLUID SPECIMEN / Unknown 07/06/2010 11:30 AM CDT 07/06/2010 3:57 PM CDT Narrative Resulting Agency Comment Performed By [facility] ? [address] [facility]. Ordering Provider Unlisted MD LAB - PATH OLOGY/CYTOLOGY ORDERABLES Performing Organization Address City/State/[facility] Co de Phone Number [facility] [address] [place] [address] * SONOGRAM - COMPLETE (07/06/2010 11:10 AM CDT) Anatomical Region Laterality Modality Other 07/06/2010 11:1 0 AM CDT Narrative 07/21/2010 3:31 PM CDT ? [facility] ? Evaluation and Treatment Unit ?PHONE: ??FAX: Pat. Name: ?JEANINE MASON. No: ?[id number] Study Date: ?? 07/06/2010 ??11:10am , Age: ? 1970, 40 Pregnancies: ?? 4, Para 1, Ab 2 LMP: ?03/16/2010 GA by LMP: ?16w0d GA by US: ? 16w6d GA Selected: ??16w0d (LMP) IVANIA: ?12/21/2010 Referring MD: Eben Lainez MD Welding Machine Operator Electroslag: ??Bridgett Chiang RDMS/hilary Hist/Ind: ? Abn Sequential Scrn/Incr risk DS ?AMA MEASUREMENTS & AGE ? GROWTH EVALUATION Measurement ??GA ? Range ? Srce %for GA Ratios ----- ---- ------- BPD ??3.8 cm 17w4d ([id number]) Hadl BPD >95 FL/BPD 0.52 HC ??13.4 cm 16w6d (40p4k-12d3b) Hadl HC ??84% FL/AC ??0.18 AC ??11.0 cm 16w6d (81q5g-09u8g) Hadl AC ??74% HC/AC ??1.21 (1.09 - 1.28) FL ?? 2.0 cm 15w6d (53y4i-07o4o) Hadl FL ??46% CI ? 0.83 (0.70 - 0.86) GA for sonogram 16w6d ([id number]) ?? Weight Estimate: based on (BPD,HC,AC,FL) Avg [...] <Electronic Signature> ??07/21/2010 03:31pm Eben Lainez MD [facility] ORDERABLES documented in this encounter Visit Diagnoses Not on filedocumented in this encounter Care Teams Radio Time Buyer Relationship Specialty Start Date End Date Eben Lainez MD [address] [address] PCP - General 07/01/10 07/30/17 documented as of this encounter
--- OUTSIDE RECORDS SUMMARY | 2024-02-21 16:22 | XMS_ITS | Encounter Summary ---
Author Organization [facility] Address [facility] [address] Care Team Providers Care Treating Machine Operator Name Role Phone Melani Franklin DO Primary Care Provider Encounter Details Date Type Department Care Team (Latest Contact Info) Description 02/22/2021 Travel Social History Tobacco Use Types Packs/Day [...] COVID-19? No / Unsure 02/22/2021 2:44 PM NEWSPAPER VENDOR documented as of this encounter Plan of Treatment Not on file documented as of this encounter Visit Diagnoses Not on filedocumented in this encounter Care Teams Treating Machine Operator Relationship Specialty Start Date End Date Melani Franklin DO [address] [place] [address] [address] [place] [address] PCP - General Internal Medicine 07/31/17 documented as of this encounter
--- OUTSIDE RECORDS SUMMARY | 2024-02-21 16:22 | XMS_ITS | Encounter Summary ---
Author Organization [facility] Address [address] [place], [place] [address] [address] Care Team Providers Care Roll Press Operator Name Role Phone Melani Franklin DO Primary Care Provider [phone] Reason for Referral * Radiology Services (Routine) - Closed Specialty Diagnoses / Procedures Referred By Tyrone baxter Referred To Contact Mammography Diagnoses Breast cancer screening Procedures MAMMO BILAT SCREENING Melani Franklin DO [address] [facility] [address] [place] [address] [facility] [address] [place] [address] Referral ID Status Reason Start Date Expiration Date Visits Re quested Visits Authorized [id number] Closed 11/11/2019 11/10/2020 1 1 Reason for Visit * Radiology Services (Routine) - Closed Specialty Diagnoses / Procedures Referred By Tyrone baxter Referred To Contact Mammography Diagnoses Breast cancer screening Procedures MAMMO BILAT SCREENING Melani Franklin, DO [address] [facility] [address] [place] [address] [facility] [address] [place] [address] Referral ID Status Reason Start Date Expiration Date Visits Re quested Visits Authorized [id number] Closed 11/11/2019 11/10/2020 1 1 Encounter Details Date Type Department Care Team (Latest Contact Info) Description 11/24/2019 7:30 AM CDT - 11/24/2019 11:59 PM CDT Hospital Encounter [facility] [address] [place] [address] Melani Franklin, [address] [facility] [address] [place] [address] Discharge Disposition: Home or Self Care Social [...] Associated Diagnosis Comments MAMMO BILAT SCREENING Routine 11/24/2019 8:05 AM CDT Breast cancer screening documented in this encounter Results * MAMMO BILAT SCREENING (11/24/2019 8:05 AM CDT) Anatomical Region Laterality Modality Breast [...] examination was subjected to CAD analysis. Melani Franklin DO MAMMO ORDERABLES documented in this encounter Visit Diagnoses Diagnosis Breast cancer screening Breast screening, unspecified documented in this encounter Care Teams Roll Press Operator Relationship Specialty Start Date End Date Melani Franklin DO [address] [place] [address] PCP - General Internal Medicine 07/31/17 documented as of this encounter
--- OUTSIDE RECORDS SUMMARY | 2024-02-21 16:22 | XMS_ITS | Encounter Summary ---
Author Organization [facility] Address [address] [place], [place] [address] [address] Care Team Providers Care Remote Sensing Analyst Name Role Phone Melani Franklin DO Primary Care Provider Reason for Referral * Radiology Services (Routine) - Closed Specialty Diagnoses / Procedures Referred By Contac t Referred To Contact Mammography Diagnoses Breast asymmetry Procedures US BREAST RIGHT LTD (Diagnostic, most commonly ordered) Melani Franklin DO [address] [facility] [address] [place] [address] [facility] [address] [place] [address] Referral ID Status Reason Start Date Expiration Date Visits Re quested Visits Authorized [id number] Closed 12/03/2023 12/02/2024 1 1 Reason for Visit * Radiology Services (Routine) - Closed Specialty Diagnoses / Procedures Referred By Contac t Referred To Contact Mammography Diagnoses Breast asymmetry Procedures US BREAST RIGHT LTD (Diagnostic, most commonly ordered) Melani Franklin DO [address] [facility] [address] [place] [address] [facility] [address] [place] [address] Referral ID Status Reason Start Date Expiration Date Visits Re quested Visits Authorized [id number] Closed 12/03/2023 12/02/2024 1 1 Encounter Details Date Type Department Care Team (Latest Contact Info) Description 01/02/2024 1:15 PM CDT - 01/02/2024 11:59 PM CDT Hospital Encounter [facility] [address] [place] [address] Melani Franklin, [address] [facility] [address] [place] [address] Discharge Disposition: Home or Self [...] Comments US BREAST RIGHT LTD Routine 01/02/2024 2 :43 PM CDT Breast asymmetry documented in this encounter Results * US BREAST RIGHT LTD (Diagnostic, [...] BENIGN. Report dictated by Alec Mariee MD (operations vice president). I, Janis Holley MD have personally reviewed and interpreted this examination/study. > Interpreting Provider: Janis Holley MD on 01/02/2024 3:36 PM Narrative 01/02/2024 3:36 PM CDT EXAMINATIONS: 1. ??RIGHT DIGITAL DIAGNOSTIC MAMMOGRAM AND TOMOSYNTHESIS AND 2. ??LIMITED RIGHT BREAST ULTRASOUND (COMBINED REPORT) LOCATION: [facility] EXAM DATE: ??01/02/2024 HISTORY: Follow-up to an [...] simple cyst. No suspicious findings identified. Melani CASTILLO ORDERABLES documented in this encounter Visit Diagnoses Diagnosis Breast asymmetry Other specified disorders of breast documented in this encounter Care Teams Remote Sensing Analyst Relationship Specialty Start Date End Date Melani Franklin DO [address] [place] [address] [address] [place] [address] PCP - General Internal Medicine 07/31/17 documented as of this encounter
--- OUTSIDE RECORDS SUMMARY | 2024-02-21 16:22 | XMS_ITS | Encounter Summary ---
Author Organization [facility] Address [facility] [facility] [place] [address] Care Team Providers Care Ecommerce Marketing Specialist Name Role Phone Melani Franklin DO Primary Care Provider [phone] Encounter Details Date Type Department Care Team (Latest Contact Info) Description 11/23/2023 Travel Social History Tobacco Use Types Packs/Day [...] on filedocumented in this encounter Care Teams Ecommerce Marketing Specialist Relationship Specialty Start Date End Date Melani Franklin DO [address] [facility] [address] [place] [address] PCP - General Internal Medicine 07/31/17 documented as of this encounter
--- OUTSIDE RECORDS SUMMARY | 2024-02-21 16:22 | XMS_ITS | Encounter Summary ---
Author Organization [facility] Address [facility] [place] [address] Care Team Providers Care Unloader Operator Name Role Phone Mealni Franklin Linda Primary Care Provider [phone] Reason for Referral * Radiology Services (Routine) - Closed Specialty Diagnoses / Procedures Referred By Tyrone baxter Referred To Contact Diagnoses Visit for screening mammogram Procedures FINA SCREENING DIGITAL IMAGE BILATERAL G0202 Eben Lainez MD [address] [place] [phone] Referral ID Status Reason Start Date Expiration Date Visits Re quested Visits Authorized [id number] Closed 07/31/2017 01/27/2018 1 1 Reason for Visit * Radiology Services (Routine) - Closed Specialty Diagnoses / Procedures Referred By Tyrone baxter Referred To Contact Diagnoses Visit for screening mammogram Procedures FINA SCREENING DIGITAL IMAGE BILATERAL G0202 Eben Lainez MD [address] [address] Referral ID Status Reason Start Date Expiration Date Visits Re quested Visits Authorized [id number] Closed 07/31/2017 01/27/2018 1 1 Encounter Details Date Type Department Care Team (Latest Contact Info) Description 07/31/2017 8:00 AM CDT - 07/31/2017 11:59 PM CDT Hospital Encounter [facility] Breast Care [address] [facility] [address] [place] [address] Eben Lainez MD [address] [place] [address] Discharge Disposition: Home or Self Care Social [...] Associated Diagnosis Comments MAMMO BILAT SCREENING Routine 07/31/2017 9:35 AM CDT Visit for screening mammogram documented in this encounter Results * FINA SCREENING DIGITAL IMAGE BILATERAL G0202 (07/31/2017 9:35 AM CDT) Anatomical Region Laterality Modality Breast Bilateral Mammography 07/31/2017 2:53 PM CDT Impressions 07/31/2017 2:56 PM CDT No mammographic evidence of malignancy in either breast. ASSESSMENT: BIRADS Category 1: Negative mammogram. RECOMMENDATION: Bilateral screening mammogram in one year. Thank you for allowing us to participate in the care of your patient. Reading Radiologist: Luna Rodriguez MD on 07/31/2017 at 2:56 PM Narrative 07/31/2017 2:56 PM CDT EXAMINATION: Digital screening mammogram on 07/31/2017. Low-dose full-field digital breast tomosynthesis examination was performed with synthetic 2D images and 3D acquisitions. Computer assisted detection was utilized. PRIOR: 2016 and 2014. BREAST PARENCHYMAL DENSITY: There are scattered areas of fibroglandular density. RISK ASSESSMENT CALCULATION: Not performed. FINDINGS: No suspicious masses, areas of architectural distortion or microcalcifications are evident on synthetic 2D mammogram or tomosynthesis images. Bilateral silicone implants are intact. There has been no significant interval change since the prior examination. Eben Lainez MD MAMMO ORDERABLES documented in this encounter Visit Diagnoses Diagnosis Visit for screening mammogram Other screening mammogram documented in this encounter Care Teams Unloader Operator Relationship Specialty Start Date End Date Melani Franklin DO [address] [facility] [address] [place] [address] PCP - General Internal Medicine 07/31/17 documented as of this encounter
--- OUTSIDE RECORDS SUMMARY | 2024-02-21 16:22 | XMS_ITS | Referral Summary ---
Author Organization [facility] Address [address] [place] [address] Care Team Providers Care Ophthalmic Lens Inspector Name Role Phone Melani Franklin DO Primary Care Provider [phone] Allergies Active Allergy Reactions Criticality Noted Date [...] every morning Active Panax ginseng root (Ginseng Tajik) 518 mg capsule Take by mouth 2 [...] (11/11/2020): Added automatically from request for surgery [id number] Mild episode of recurrent major depressive disor [...] Antibiotic Free, Intramuscular 01/02/2017 Typhoid Live 12/05/2014 Social History Tobacco Use Types Packs/Day Years Used Date Smoking Tobacco: Former Cigarettes 1 14 1 993 - 2007 Smokeless Tobacco: Never Tobacco Cessation:Counseling Given: Not [...] on file Legal Sex Female 12:36 PM EXTRAS CASTING DIRECTOR Gender Identity Female 12/10/2020 10:46 AM CDT Sexual Orientation Not on file Last Filed Vital Signs Vital Sign Reading Time Taken Comments Blood Pressure 123/73 03/21/2023 5:50 PM EXTRAS CASTING DIRECTOR Pulse 81 03/21/2023 5:50 PM EXTRAS CASTING DIRECTOR Temperature 36.7 ??C (98.1 ??F) 03/21/2023 5:25 PM CS T Respiratory Rate 21 03/21/2023 5:50 PM EXTRAS CASTING DIRECTOR Oxygen Saturation 98% 03/21/2023 5:50 PM EXTRAS CASTING DIRECTOR Inhaled Oxygen Concentration - - Weight 62.6 kg (138 lb) 03/21/2023 12:15 PM EXTRAS CASTING DIRECTOR Height 157.5 cm (5' 2 ) 03/21/2023 12:15 PM EXTRAS CASTING DIRECTOR Body Mass Index 25.24 03/21/2023 12:15 PM EXTRAS CASTING DIRECTOR Plan of Treatment Not on file Medical Devices Implanted Type Area Operator/Assistant Foreman Device Identifier Shelf Expiration Date Model / Serial / Lot [employer] Ar-8978-Cp Internalbrace Kit Hand Wrist Set Implant Ligament Augmentation - [id number] Implanted:Qty: 1 on 12/08/2020 by Anurag Franklin MD at [facility] Left: Thumb [employer] [id number] 10/02/2025 AR-8978-C P / / [id number] Depuy Mitek Quickanchor Plus Ethibond 2-0 V-5 Mini Newport Suture [id number] - [id number] Implanted:Qty: 2 on 03/21/2023 by Anurag Franklin MD at [facility] Left: Wrist Depuy Mitek [id number] 09/02/[id number] / / [id number] Description:Ref [id number] Insurance [facility] H[facility]/PPO Address: [facility] [address] [place] [id number] [facility] [employer] [facility]/PPO Address: [address] [address] [place] [address] [facility] [employer] [facility] H[facility]/PPO Address: [facility] [address] [place] [address] Care Teams Ophthalmic Lens Inspector Relationship Specialty Start Date End Date Melani Franklin DO [address] [facility] [address] [place] [address] PCP - General Internal Medicine 10/05/20
--- OUTSIDE RECORDS SUMMARY | 2024-02-21 16:23 | XMS_ITS | Encounter Summary ---
Author Organization [facility] Address [address] [place] [address] Care Team Providers Care Grape Crusher Name Role Phone Noemi Melani Linda MENARD Primary Care Provider [phone] Reason for Referral * Diagnostic Imaging (Routine) - Closed Specialty Diagnoses / Procedures Referred By Lishaac t Referred To Contact Diagnoses Arthritis of carpometacarpal (CMC) joint of left thumb Procedures X-ray wrist left 3+ views Anurag Franklin MD Phone: tel: fax: [facility] Referral ID Status Reason Start Date Expiration Date Visits Re quested Visits Authorized [id number] Closed 12/06/2021 01/05/2023 1 1 Reason for Visit * Diagnostic Imaging (Routine) - Closed Specialty Diagnoses / Procedures Referred By Contac sahil Referred To Contact Diagnoses Arthritis of carpometacarpal (CMC) joint of left thumb Procedures X-ray wrist left 3+ views Anurag Franklin MD Phone: tel: fax: [facility] Referral ID Status Reason Start Date Expiration Date Visits Re quested Visits Authorized [id number] Closed 12/06/2021 01/05/2023 1 1 Encounter Details Date Type Department Care Team (Latest Contact Info) Description 12/06/2021 11:12 AM CDT - 12/06/2021 11:59 PM CDT Hospital Encounter [facility] [address] [place] [id number] Arthritis of carpometacarpal (CMC) joint of left thumb Discharge Disposition: Discharge to home or self care Social History Tobacco Use Types Packs/Day Years Used Date Smoking Tobacco: Former Cigarettes 1 14 1 993 - 2006 Smokeless Tobacco: Never AUDIT-C Answer Date Recorded Q1: How often do you have a drink containing alcohol? 4 or more times a week 11/26/2020 Q2: How many drinks containi ng alcohol do you have on a typical day when you are drinking? 1 or 2 Q3: How often do you have si x or more drinks on one occasion? 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 Gender Identity Female 12/10/2020 10:46 AM CDT Sexual Orientation Not on file documented as of this encounter Medications at Time of Discharge albuterol HFA (PROVENTIL HFA,VENTOLIN HFA,PROAIR HFA) 90 mcg/actuation inhaler INHALE 2 PUFFS BY MOUTH EVERY 6 HOURS NEEDED FOR SHORTNESS OF BREATH 11/10/2021 ALPRAZolam (XANAX) 0.25 mg tabletIndications:In somnia,anxiety Take 1-2 tablets (0.25-0.5 mg total) by mouth nightly as needed for anxiety or sleep 12/03/2020 biotin 1 mg tabletIndications:Smyth ir/skin health Take 1 tablet (1,000 mcg total) by mouth every morning buPROPion XL (WELLBUTRIN XL) 150 mg 24 hr tabletIndications:ma amol depressive disorder Take 1 tablet (150 mg total) by mouth every morning 10/12/2021 cetirizine (ZyrTEC) 10 mg tabletIndications:Al lergic Rhinitis Take 2 tablets (20 mg total) by mouth every morning escitalopram (LEXAPRO) 20 mg tabletIndications:An xiety with Depression Take 0.5 tablets (10 mg total) by mouth every morning 09/08/2020 glucosamine/chondr evans A sod (OSTEO BI-FLEX ORAL)Indications:Evita nt health Take 1 capsule by mouth every morning lisinopril-hydroCHLO ROthiazide (ZESTORETIC) 10-12.5 mg per tabletIndications:hy pertension Take 1 tablet by mouth every morning 10/13/2021 montelukast (SINGULAIR) 10 mg tabletIndications:Pe rennial Allergic Rhinitis,Seasonal Allergic Rhinitis Take 1 tablet (10 mg total) by mouth 2 (two) times a day turmeric root extract 500 mg capsuleIndications:A nti-inflammatory Take 3 capsules by mouth every morning valACYclovir (VALTREX) 1 gram tabletIndications:Pr ophylaxis, Medical,allergy face rash Take 2 tablets (2,000 mg total) by mouth 2 (two) times a day 06/19/2019 cholestyramine (QUESTRAN) 4 gram packetIndications:ta kes since cholecystectomy Take 1 packet by mouth nightly 08/22/2020 4 diazePAM (VALIUM) 5 mg tablet TAKE DIRECTED UPON ARRIVAL FOR PROCEDURE AND THEN EVERY 6 HOURS NEEDED POST-OP 12/15/2020 4 lisinopriL (PRINIVIL,ZESTRIL) 10 mg tabletIndications:hy pertension Take 1 tablet (10 mg total) by mouth every morning 09/08/2020 4 naproxen (NAPROSYN) 500 mg tabletIndications:Mi graines Take 1 tablet (500 mg total) by mouth as needed for headaches (Migraine headace) 08/22/2020 4 Nortrel 1/35, 28, 1-35 mg-mcg per tabletIndications:Pr egnancy Contraception Take 1 tablet by mouth nightly 08/16/2020 4 omeprazole (PriLOSEC) 20 mg capsule TAKE 1 CAPSULE(20 MG) BY MOUTH DAILY(SP ART) 06/08/2021 4 SUMAtriptan (IMITREX) 100 mg tabletIndications:Mi graine Take 1 tablet (100 mg total) by mouth as needed 10/26/2020 4 zolpidem (AMBIEN) 5 mg tabletIndications:Sl eep-Onset Insomnia Take 1 tablet (5 mg total) by mouth nightly 10/26/2020 4 documented as of this encounter Discharge Disposition Disposition Code Departure Means Destination Discharge to home or self care documented in this encounter Plan of Treatment Not on file documented as of this encounter Procedures Procedure Name Priority Date/Time Associated Diagnosis Comments XR WRIST LEFT 3 OR MORE VIEWS Schedule Routine, Read Routine (OP Routine) 12/06/2021 11:23 AM CDT Arthritis of carpometacarpal (CMC) joint of left thumb documented in this encounter Results * X-ray wrist left 3+ views (12/06/2021 11:23 AM CDT) Anatomical Region Laterality Modality Upper Extremities, Wrist Left Compute d Radiography 12/06/2021 12:0 0 PM CDT Impressions 12/06/2021 12:00 PM CDT Unchanged left trapeziectomy and basal thumb reconstruction. Electronically signed by: Reji Linda M.D. Narrative 12/06/2021 12:00 PM CDT XR WRIST LEFT 3 OR MORE VIEWS HISTORY: ??Left wrist pain. FINDINGS: ??3 views of the left wrist are obtained and compared with 03/08/2021. There is no acute fracture. ??There is unchanged trapeziectomy and basal thumb reconstruction. ??Mild thumb metacarpophalangeal osteoarthritis is present. ??There are no erosions. ??Alignment and soft tissues are normal. Procedure Note Reji Linda MD - 12/06/2021 XR WRIST LEFT 3 OR MORE VIEWS HISTORY: Left wrist pain. FINDINGS: 3 views of the left wrist are obtained and compared with 03/08/2021. There is no acute fracture. There is unchanged trapeziectomy and basal thumb reconstruction. Mild thumb metacarpophalangeal osteoarthritis is present. There are no erosions. Alignment and soft tissues are normal. IMPRESSION: Unchanged left trapeziectomy and basal thumb reconstruction. Electronically signed by: Reji Linda M.D. Anurag Franklin MD IMG XR PROCEDURES Final Resul t documented in this encounter Visit Diagnoses Diagnosis Arthritis of carpometacarpal (CMC) joint of left thumb documented in this encounter Care Teams Grape Crusher Relationship Specialty Start Date End Date Melani Franklin DO [address] [place] [address] PCP - General Internal Medicine 10/05/20 documented as of this encounter
--- OUTSIDE RECORDS SUMMARY | 2024-02-21 16:23 | XMS_ITS | Encounter Summary ---
Author Organization [facility] Address [address] [place] [address] Phone Care Team Providers Care Veterinary Radiologist Name Role Phone Melani Franklin Primary Care Provider [phone] Reason for Visit * Reason Comments Follow-up Encounter Details Date Type Department Care Team (Latest Contact Info) Description 04/20/2023 9:00 AM PIZZA CHEF Office Visit [facility] Orthopaedic Surgery [address] [facility] 2[address] [place] [address] Anurag Franklin MD [address] [facility] [address] [place] [address] Pain of left thumb (Primary Dx); Arthritis of carpometacarpal (CMC) joint of left thumb Social History Tobacco Use Types Packs/Day Years [...] on file Legal Sex Female 12:36 PM PIZZA CHEF Gender Identity Female 12/10/2020 10:46 AM CDT Sexual Orientation Not on file documented as of this encounter Progress Notes * Anurag Franklin MD - 04/20/2023 9:00 AM CST Images from the original note were not included. ESTABLISHED PATIENT VISIT INTERIM HISTORY Jody Mason was seen in the office today. She is now 4+ weeks out after revision arthroplasty of her left thumb base. Doing beautifully. Still tends towards a bit of hyperextension for the MCPbut her pain is substantially better at the [facility]. Sutures out. Wounds clean and dry.. IMPRESSION/TREATMENT PLAN She is in good position a splint and trying to keep the thumb index webspace anti posed. See back in 4-6 weeks. Anurag Franklin M.D., MSc, FRCS(C) Professor [facility] Orthopedics A CHEF * Randy Rogers - 04/20/2023 9:00 AM CSTAssociated Order(s): Ortho Casting/Splinting Documentation Post-Procedure Diagnose(s): Pain of left thumb Ortho Casting/Splinting Documentation Date/Time: 04/20/2023 2:22 PM Performed by: Randy Rogers Authorized by: Anurag Franklin MD Sensation: Normal Skin Condition: Clean, dry, and intact Pin Pulled: No Cast Removed: Yes Cast Applied: No Supplies: Cast removal only Capillary Refill: Normal Patient tolerance of procedure: Tolerated well, no immediate complications A CHEF documented in this encounter Plan of Treatment Not on file documented as of this encounter Procedures Procedure Name Priority Date/Time Associated Diagnosis Comments ORTHO CASTING/SPLINTING Routine 04/20/2023 2:22 PM PIZZA CHEF Pain of left thumb documented in this encounter Results * Ortho Casting/Splinting Documentation (04/20/2023 2:22 PM PIZZA CHEF) Narrative Randy Rogers - 04/20/2023 2:22 PM PIZZA CHEF Randy Rogers ? 04/20/2023 ??2:23 PM Ortho Casting/Splinting Documentation Date/Time: 04/20/2023 2:22 PM Performed by: Randy Rogers Authorized by: Anurag Franklin MD ?? Sensation: ??Normal Skin Condition: ??Clean, dry, and intact Pin Pulled: No ?? Cast Removed: Yes ?? Cast Applied: No ?? Supplies: ??Cast removal only Capillary Refill: ??Normal Patient tolerance of procedure: ??Tolerated well, no immediate complications us Anurag Franklin MD IN CLINIC/BEDSIDE ORDERABLES Final Result documented in this encounter Visit Diagnoses Diagnosis Pain of left thumb- Primary Arthritis of carpometacarpal (CMC) joint of left thumb documented in this encounter Care Teams Veterinary Radiologist Relationship Specialty Start Date End Date Melani Franklin DO [address] [facility] [address] [place] [address] PCP - General Internal Medicine 10/05/20 documented as of this encounter
--- OUTSIDE RECORDS SUMMARY | 2024-02-21 16:23 | XMS_ITS | Encounter Summary ---
Author Organization [facility] Address [address] [place] [address] Phone Care Team Providers Care Deckhand Tuna Boat Name Role Phone Melani Franklin Linda Primary Care Provider [phone] Reason for Visit * Reason Comments OT Initial Eval * Consultation (Routine) - Authorized Specialty Diagnoses / Procedures Referred By Contact Referred To Contact Occupational Therapy Diagnoses Pain of left thumb Arthritis of carpometacarpal (CMC) joint of left thumb Anurag Franklin MD [address] [facility] [address] [place] [address] Phone: tel:[phone] fax:[phone] [facility] (All Locations) Referral ID Status Reason Start Date Expiration Date Visits Requested Visits Authorized [id number] Authorized Specialty Services Required 04/20/2023 05/19/2024 24 Encounter Details Date Type Department Care Team (Late st Contact Info) Description 04/20/2023 9:30 AM SPORTS TEACHER Therapy [facility] Occupational Therapy [address] [facility] 1[address] [place] [id number] [place] [address] [place] [address] Arthritis of carpometacarpal (CMC) joint of left thumb (Primary Dx); Pain of left thumb Social History Tobacco Use [...] on file Legal Sex Female 12:36 PM SPORTS TEACHER Gender Identity Female 12/10/2020 10:46 AM CDT Sexual Orientation Not on file documented as of this encounter Progress Notes * Khalida Carey, OT - 04/20/2023 9:30 AM CST Sugar OT/PT Hand Therapy Evaluation Referring Provider: Anurag Franklin MD [address] [facility] [address] [place] [address] No primary diagnosis found. MD's order on Diagnosis: Failed [...] years ago Cause of injury: failed arthroplasty Subjective: Patient reports: Patient voices that she is back again due to her surgery not working. Patient's primary goal: to use her thumb fully. Past Medical History: Diagnosis Date Arthritis Asthma Hypertension Migraines Motion sickness Morphine and Trazodone History of prior therapy services: yes, here with me. 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 [] Yes [x] No Medication using: Appearance: Thumb sits in adduction with MP hyperextension Wound: Color: [x] red [] yellow [] black Depth: [x] closed [] shallow [] Deep Exudate: [x] none [] scant [] minimal [] moderate [] High Description: [] Sanguineous/bloody [] Serosanguinous/clear bloody fluid [] purulent Odor: [] absent [] present Clinical Exam: Sensory: Numbness [] Yes [x] No Location: Tingling [] Yes [x] No Location: Dash: deferred due to walk in status 01/25/2021 03/08/2021 12/06/2021 03/06/2023 03/30/2023 04/20/2023 PROMIS Upper Extremity V2.0 30.2 36.7 45.3 26.6 35.8 36.6 Pain Interference 60.4 53.9 52.6 62.9 64 58 Physical Function V2.0 46.1 48.2 51.4 37.5 32 42.4 Anxiety V1.0 51.2 45.7 53.1 62.1 58.3 51.2 Depression 42.9 41.7 45.8 53.3 46.1 41.7 Active Thumb Range of Motion Right Left MP extension/ flexion MP extension/ flexion NT/2 (able to position in 28 flexion in splint) IP extension/flexion IP extension/flexion NT/47 Palmar abduction Palmar abduction 32 Radial abduction Radial abduction Opposition Opposition To IF tip with hyperextension on MP at +3 Other: Other: 45/55 WF/WE AROM Treatment Provided: -Fabrication and issue of custom orthosis per MD orders: left forearm based thumb spica splint. -Purpose of orthosis: to support affected structures -A prefabricated orthosis is not appropriate for this patient because: it would not adequately conform to the patient's upper extremity -Pt to wear: at all times except for hand hygiene, showering, and gentle AROM. -Pt left the clinic wearing the orthosis. -Instruction in HEP: -AROM: thumb flexion and WE/WF. Patient was instructed to avoid lifting her thumb into extension asshe tends to sit in hyperextension at her MP. She is to just relax her contraction. -Pt to perform HEP: 5 reps, 3x/a day -Review of precautions: no thumb use, or pressure to her thumb, no pinching. Assessment: Pt demonstrated independence/verbalized understanding in: [] HEP [] Don/doff orthosis [x] All tx listed above Assessment details: Patient would benefit from skilled and necessary O.T. services to address deficits and promote optimal recovery. Impairment list: [x] Coordination [x] Edema [] Endurance/activity tolerance [] Fine motor use [] Flexibility [] Gross motor use [] Muscle tone [x] Pain [x] Range of motion [] Scar tissue [] Sensation [] Sensory/motor [] Skin integrity [] Strength Other:thumb sits in zig zag pattern of adduction of first metacarpal and hyperextension. Functional Limitations: [x] ADLs [] Community activities [] Communication [] Education [x] Home management [x] Leisure activities [] Play [] Safety [] Sports [] Work Other: Environmental Barriers: [] Home [] Work [] Community Barriers to Therapy: Intervention Approach: [] Health promotion [x] Remediation [] Wellness [] Adaptation [] Prevention Prognosis: [] Excellent [x] Good [] Fair [] Poor Goal Status / Date Updated Due by: STG1 Patient will verbalize understanding of purpose, care, wearing schedule, and precaution with orthosis. MET STG2 Patient will be able to hold MP in neutral and not hyperextension without support. New 04/20/2023 06/19/23 STG3 Patient will be able to oppose thumb to SF tip for in hand manipulation of cooking tools. New 04/20/2023 06/19/23 LTG1 Patient will be able to oppose thumb to SF base to manipulate to braid her daughter's hair. New 04/20/2023 07/19/23 LTG2 New 04/20/2023 LTG3 New 04/20/2023 Plan: Frequency/Duration: 1x/week up to 12 weeks Plan Details:Assess splint and adjust to improve thumb flexion as needed, thumb AROM, adductor release, continue to avoid hyperextension. Start time: 09:40 End time:10:20 ANJU Escalera/Abisai,CHJosh If the patient does not return to therapy this will serve as a discharge summary. FOR INSURANCE AUTHORIZATION PURPOSES ONLY: 1. Primary purpose of therapy: Rehabilitation 2. Name tool(s) used during evaluation: 3. Will any of the following be used as a primary treatment: None of these apply 4. Body part(s) affected: Head/Neck, Upper Extremity, Spine, Lower Extremity, Wound, Vestibular, and Balance/Falls 5. Does the patient have difficulty performing age appropriate activities of daily living (ADLs) and activities related to independent living: Yes 6. Select all conditions expected to impact treatment: Cognitive impairment (eg, intellectual disability), Musculoskeletal disorders (eg, juvenile idiopathic arthritis, contractures, or fractures), Neurological condition (eg, traumatic brain injury, cerebral palsy, spasticity, seizures, or sensory processing disorder), Ongoing dialysis or cancer treatment (eg, prolonged steroid use, chemotherapy,or radiation), Genetic disorder (eg, Down syndrome, Fragile X, or Cystic fibrosis), Psychological disorders (eg, Bipolar disorder or attention deficit hyperactivity disorder), Presence of medical equipment (eg, gastrostomy tube, shunt, or drain), and Social determinants of health (eg, barriers related to nutrition, education, housing, or communication) TS TEACHER documented in this encounter Plan of Treatment Not on file documented as of this encounter Visit Diagnoses Diagnosis Arthritis of carpometacarpal (CMC) joint of left thumb- Primary Pain of left thumb documented in this encounter Orders Outpatient Referral Count Last Ordered Date Fir st Ordered Date AMB REFERRAL ORDER TO HAND THERAPY 1 2023 documented in this encounter Care Teams Deckhand Tuna Boat Relationship Specialty Start Date End Date Melani Franklin DO [address] [facility] [address] [place] [address] PCP - General Internal Medicine 10/05/20 documented as of this encounter
--- OUTSIDE RECORDS SUMMARY | 2024-02-21 16:23 | XMS_ITS | Encounter Summary ---
Author Organization [facility] Address [address] [place] [address] Care Team Providers Care Basting Machine Operator Name Role Phone Melani Franklin Primary Care Provider [phone] Encounter Details Date Type Department Care Team (Latest Contact Info) Description 03/06/2023 11:30 AM BAKERY DELIVERER - 03/06/2023 11:59 PM BAKERY DELIVERER Hospital Encounter [facility] [address] [place] [address] Anurag Franklin MD [address] [facility] [address] [place] [address] Pain of left thumb Discharge Disposition: Discharge to home or self care Social History Tobacco Use Types Packs/Day Years Used Date Smoking Tobacco: Former Cigarettes 1 14 1 993 - 2007 Smokeless Tobacco: Never AUDIT-C Answer Date Recorded Q1: How often do you have a drink containing alcohol? 4 or more times a week 03/07/2023 Q2: How many drinks containi ng alcohol do you have on a typical day when you are drinking? 1 or 2 Q3: How often do you have si x or more drinks on one occasion? Never 03/07/2023 Personal Safety Answer Date Recorded Getting School Help Needed Not on file 03/04 Comments No Sex and Gender Information Value Date Recorded Sex Assigned at Not on file Legal Sex Female 12:36 PM BAKERY DELIVERER Gender Identity Female 12/10/2020 10:46 AM CDT Sexual Orientation Not on file documented as of this encounter Medications at Time of Discharge albuterol HFA (PROVENTIL HFA,VENTOLIN HFA,PROAIR HFA) 90 mcg/actuation inhaler INHALE 2 PUFFS BY MOUTH EVERY 6 HOURS NEEDED FOR SHORTNESS OF BREATH 2 ALPRAZolam (XANAX) 0.25 mg tabletIndications:In somnia,anxiety Take 1-2 tablets (0.25-0.5 mg total) by mouth nightly as needed for anxiety or sleep 1 biotin 1 mg tabletIndications:Smyth ir/skin health Take 1 tablet (1,000 mcg total) by mouth every morning buPROPion XL (WELLBUTRIN XL) 150 mg 24 hr tabletIndications:ma amol depressive disorder Take 1 tablet (150 mg total) by mouth every morning 2 cetirizine (ZyrTEC) 10 mg tabletIndications:Al lergic Rhinitis Take 2 tablets (20 mg total) by mouth every morning escitalopram (LEXAPRO) 20 mg tabletIndications:An xiety with Depression Take 0.5 tablets (10 mg total) by mouth every morning 1 glucosamine/chondr evans A sod (OSTEO BI-FLEX ORAL)Indications:Evita nt health Take 1 capsule by mouth every morning herbal drugs tablet Take by mouth Estrodim tab 2 tab by mouth a bedtime / hormorne replacement HYDROcodone-acetamin ophen (NORCO) 5-325 mg per tabletIndications:Pa in Take 1 tablet by mouth every 6 (six) hours as needed for pain 30 tablet 4 lisinopril-hydroCHLO ROthiazide (ZESTORETIC) 10-12.5 mg per tabletIndications:hy pertension Take 1 tablet by mouth every morning 2 montelukast (SINGULAIR) 10 mg tabletIndications:Pe rennial Allergic Rhinitis,Seasonal Allergic Rhinitis Take 1 tablet (10 mg total) by mouth 2 (two) times a day multivit-minerals/fo lic acid (CENTRUM ADULT 50 PLUS ORAL)Indications:Vit urban Deficiency Prevention Take 1 tablet by mouth every morning Panax ginseng root (Ginseng Bengali) 518 mg capsule Take by mouth 2 (two) times a day as needed Red Ginseng tea drinks 1-2 cups of tea daily to helps menopausal symptoms progesterone (PROMETRIUM) 200 mg capsule Take 1 capsule (200 mg total) by mouth every morning 3 RESVERATROL ORALIndications:anti oxidant Take 1 tablet by mouth every morning testosterone 100 mg pelletIndications:ho rmone replacement every 4 (four) months Inject pellet under skin every 4 months turmeric root extract 500 mg capsuleIndications:A nti-inflammatory Take 3 capsules by mouth every morning valACYclovir (VALTREX) 1 gram tabletIndications:Pr ophylaxis, Medical,allergy face rash Take 2 tablets (2,000 mg total) by mouth 2 (two) times a day 0 cholestyramine (QUESTRAN) 4 gram packetIndications:ta kes since cholecystectomy Take 1 packet by mouth nightly 1 03/07/19 24 diazePAM (VALIUM) 5 mg tablet TAKE DIRECTED UPON ARRIVAL FOR PROCEDURE AND THEN EVERY 6 HOURS NEEDED POST-OP 1 03/07/19 24 ESTRADIOL ORAL Take 2 tablets by mouth nightly 03/07/19 24 lisinopriL (PRINIVIL,ZESTRIL) 10 mg tabletIndications:hy pertension Take 1 tablet (10 mg total) by mouth every morning 1 03/07/19 24 naproxen (NAPROSYN) 500 mg tabletIndications:Mi graines Take 1 tablet (500 mg total) by mouth as needed for headaches (Migraine headace) 1 03/30/19 24 Nortrel 1/35, 28, 1-35 mg-mcg per tabletIndications:Pr egnancy Contraception Take 1 tablet by mouth nightly 1 03/07/19 24 omeprazole (PriLOSEC) 20 mg capsule TAKE 1 CAPSULE(20 MG) BY MOUTH DAILY(SP ART) 2 03/07/19 24 SUMAtriptan (IMITREX) 100 mg tabletIndications:Mi graine Take 1 tablet (100 mg total) by mouth as needed 1 03/30/19 24 zolpidem (AMBIEN) 5 mg tabletIndications:Sl eep-Onset Insomnia Take 1 tablet (5 mg total) by mouth nightly 1 03/30/19 24 documented as of this encounter Discharge Disposition Disposition Code Departure Means Destination Discharge to home or self care documented in this encounter Plan of Treatment Not on file documented as of this encounter Procedures Procedure Name Priority Date/Time Associated Diagnosis Comments XR WRIST LEFT 3 OR MORE VIEWS Schedule Routine, Read Routine (OP Routine) 03/06/2023 11:44 AM BAKERY DELIVERER Pain of left thumb documented in this encounter Results * X-ray wrist left 3+ views (03/06/2023 11:44 AM BAKERY DELIVERER) Anatomical Region Laterality Modality Upper Extremities, Wrist Left Compute d Radiography 03/06/2023 12:1 5 PM BAKERY DELIVERER Impressions 03/06/2023 12:15 PM BAKERY DELIVERER 1. 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 Electronically signed by: Spencer Villaseñor MD Narrative 03/06/2023 12:15 PM BAKERY DELIVERER EXAMINATION: XR WRIST LEFT 3 OR MORE VIEWS HISTORY: ??Left thumb pain. FINDINGS: 4 views of the left wrist are submitted with comparison 12/06/2021. Left hand trapezia ectomy and base of thumb reconstruction is again noted with progressive moderate osteoarthritis. ??No erosions. Alignment is otherwise normal. ??There is no acute fracture. Procedure Note Spencer Villaseñor MD - 03/06/2023 EXAMINATION: XR WRIST LEFT 3 OR MORE VIEWS HISTORY: Left thumb pain. FINDINGS: 4 views of the left wrist are submitted with comparison 12/06/2021. Left hand trapezia ectomy and base of thumb reconstruction is again noted with progressive moderate osteoarthritis. No erosions. Alignment is otherwise normal. There is no acute fracture. IMPRESSION: 1. 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 Electronically signed by: Spencer Villaseñor MD us Anurag Franklin MD IMG XR PROCEDURES Final Resul t documented in this encounter Visit Diagnoses Diagnosis Pain of left thumb documented in this encounter Care Teams Basting Machine Operator Relationship Specialty Start Date End Date Melani Franklin DO [address] [facility] [address] [place] [address] PCP - General Internal Medicine 10/05/20 documented as of this encounter
--- OUTSIDE RECORDS SUMMARY | 2024-02-21 16:23 | XMS_ITS | Encounter Summary ---
Author Organization [facility] Address [address] [place] [address] Phone Care Team Providers Care Lead Inspector Name Role Phone Melani Franklin Primary Care Provider Reason for Visit * Reason Comments Pain Encounter Details Date Type Department Care Team (Latest Contact Info) Description 03/06/2023 10:50 AM WORKPLACE TRAINER AND ASSESSOR Office Visit [facility] Orthopaedic Surgery [address] [facility] 6th [place] [address] [place] [address] Anurag Franklin MD [address] [facility] [address] [place] [address] Pain of left thumb (Primary Dx); Arthritis [...] on file Legal Sex Female 12:36 PM WORKPLACE TRAINER AND ASSESSOR Gender Identity Female 12/10/2020 10:46 AM CDT Sexual Orientation Not on file documented as of this encounter Progress Notes * Anurag Franklin MD - 03/06/2023 10:50 AM CST Images from the original note were not included. ESTABLISHED PATIENT VISIT INTERIM HISTORY Jody Mason returns to the office today. Two years and two months ago she had a thumb base reconstruction using internal brace. She really has never turned the corner. She continues to have pain weakness and dysfunction at a medium level in that she has both difficulties with heavy activity as well as small activity involving dextrous tip pinch. She really feels that she is plateaued and that she has not in an acceptable position with respect to function moving forward. PHYSICAL EXAMINATION She looks well. Younger than her stated age. No distress. Alert and oriented x3. Thumb anti position is decreased when compared to the contralateral side. Tender at the thumb base. Some positive grind. Scar tenderness is present. Also, fair amount of scar adhesion present as well. IMPRESSION/TREATMENT PLAN/FOLLOW UP I have looked at her x-ray. The thumb metacarpal base has settled substantially. I do not think that I can rehabilitate her in any sort of her reproducible way given the position of the metacarpal atpresent. I have told her that we would need to do a repeat thumb base reconstructive procedure using her FCR tendon and possibly also a pin from the thumb to the index metacarpal to hold it out for a period of time. She wishes to proceed but I look forward to talking to her who is an orthopedic surgeon prior to the day of surgery. Anurag Franklin M.D., MSc, [facility]) Professor [facility] Orthopedics PLACE TRAINER AND ASSESSOR documented in this encounter Plan of Treatment Not on file documented as of this encounter Results * X-ray wrist left 3+ views (03/06/2023 11:44 AM WORKPLACE TRAINER AND ASSESSOR) Anatomical Region Laterality Modality Upper Extremities, Wrist Left Compute d Radiography 03/06/2023 12:1 5 PM WORKPLACE TRAINER AND ASSESSOR Impressions 03/06/2023 12:15 PM WORKPLACE TRAINER AND ASSESSOR 1. 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 Electronically signed by: Spencer Villaseñor MD Narrative 03/06/2023 12:15 PM WORKPLACE TRAINER AND ASSESSOR EXAMINATION: XR WRIST LEFT 3 OR MORE [...] osteoarthritis. Electronically signed by: Spencer Villaseñor MD Anurag Franklin MD IMG XR PROCEDURES Final Resul t documented in this encounter Visit Diagnoses Diagnosis Pain of left thumb- Primary Arthritis of carpometacarpal (CMC) joint of left thumb Pain of left thumb documented in this encounter Historical Medications * This list may reflect changes made after this encounter. testosterone 100 mg pelletIndications :hormone replacement every 4 (four) months Inject pellet under skin every 4 months progesterone (PROMETRIUM) 200 mg capsule Take 1 capsule (200 mg total) by mouth every morning 02/28/2023 ESTRADIOL ORAL Take 2 tablets by mouth nightly 03/07/2023 added in this encounter Care Teams Lead Inspector Relationship Specialty Start Date End Date Melani Franklin DO [address] [facility] [address] [place] [address] PCP - General Internal Medicine 10/05/20 documented as of this encounter
--- OUTSIDE RECORDS SUMMARY | 2024-02-21 16:23 | XMS_ITS | Encounter Summary ---
Author Organization [facility] Healthcare Address [address] [place] [address] Care Team Providers Care Director Of Bands Name Role Phone Melani Franklin Primary Care Provider [phone] Reason for Visit * Auth/Cert (Routine) Specialty Diagnoses / Procedures Referred By Contangelina t Referred To Contact Diagnoses Thumb pain, left Thumb pain, left [M79.645] Procedures AL ARTHRP INTERPOS INTERCARPAL/METACARPAL JOINTS ARTHROPLASTY CARPOMETACARPAL INTERPOSITIONAL WITH RECONSTRUCTION LIGAMENT - REVISION THUMB Referral ID Status Reason Start Date Expiration Date Visits Re quested Visits Authorized [id number] 1 1 Encounter Details Date Type Department Care Team (Late st Contact Info) Description 03/21/2023 1:20 PM [employer] - 03/21/2023 4:20 PM [employer] Surgery [facility] [address] [place] [id number] Anurag Franklin MD [address] [place] [address] [address] [place] [address] ARTHROPLASTY CARPOMETACARPAL INTERPOSITIONAL WITH RECONSTRUCTION LIGAMENT - REVISION THUMB Surgery Details Date/Time Status Location OR Service Patient Class Case Cl ass Case Type Trauma Case? 03/21/2023 1:20 PM Posted [facility] OR POD 4 G Orthopaedics Outpatient Elective Panel 1 Procedure LRB Anes Op Region Wound Class Comments ARTHROPLASTY CARPOMETACARPAL INTERPOSITIONAL WITH RECONSTRUCTION LIGAMENT - REVISION THUMB Left Choice Wrist Class I - Clean Surgeon Surgeon Role Service Panel Anurag Franklin MD Primary Orthopaedics 1 Mimi Pineda MD Resident - Assisting Orthop aedics 1 Case Notes 03/16 @ 1220 Lineup set by Adilene via case message - 4th start CF Special Needs MINI MITEK ANCHORS documented in this encounter Social History Tobacco Use Types Packs/Day Years [...] on file Legal Sex Female 12:36 PM [employer] Gender Identity Female 12/10/2020 10:46 AM CDT Sexual Orientation Not on file documented as of this encounter Last Filed Vital Signs Vital Sign Reading Time Taken Comments Blood Pressure 121/84 03/21/2023 12:15 PM [employer] Pulse 75 03/21/2023 12:15 PM [employer] Temperature 36.1 ??C (97 ??F) 03/21/2023 12:15 PM [employer] Respiratory Rate 12 03/21/2023 12:15 PM [employer] Oxygen Saturation 98% 03/21/2023 12:15 PM [employer] Inhaled Oxygen Concentration - - Weight 62.6 kg (138 lb) 03/21/2023 12:15 PM [employer] Height 157.5 cm (5' 2 ) 03/21/2023 12:15 PM [employer] Body Mass Index 25.24 03/21/2023 12:15 PM [employer] documented in this encounter Discharge Instructions * Discharge Instructions* Adilene Navas RN - 03/06/2023 6:27 PM [employer] POSTOPERATIVE INSTRUCTIONS - Dr. Franklin Follow-up Appointments Your first postoperative visit with Dr. Franklin is listed on the first page of your discharge instructions. [facility] [place] as Dr. Franklin is out of the office the following week. Dr. Franklin may send you directly to the [facility] after your first postoperative visit in his office. Please be aware that this may add an hour or two to your first postoperative visit. If you have been scheduled for a visit with therapy, it will be listed on the first page of your discharge instructions. Dressing and Wound Care A large dressing has been placed on your arm to reduce motion and control swelling. Keep your dressing clean and dry. Keep the dressing/splint on until your first postoperative office visit. Wear a plastic bag over your dressing/splint whenever you take a shower or bath Swelling is normal after surgery. Elevate your hand/arm so the surgical site is above your heart todecrease the swelling. Swelling is like water, it runs downhill. This is especially important for the first 72 hours after surgery. The best way to elevate your hand/arm is with your fingers pointing towards the ceiling and your hand/arm above the level of the heart (see handout). You can use pillows to help prop your hand/arm up when sitting or lying down. If you are experiencing pain, be sure you are elevating your hand/arm as often as possible. Apply an ice pack over your dressing/splint for 20 minutes of every hour for the first 3 days when you are awake. This can help to reduce swelling and inflammation. Be sure the ice pack is waterproofso it does not leak on the dressing/splint. A simple ice pack can be made by adding ten cubes and asmall amount of water in a small zip-lock bag. Seal this small bag tightly. Place this small bag kenzie larger zip lock bag. Apply to the area in pain. If the dressing feels too tight in spite of elevation, loosen the outer wrap but do not remove the entire dressing. ACTIVITIES: Bend and straighten the parts of your hand/arm that are not included in your surgical dressing or splint. Do this at least 6 times a day, as this will help decrease swelling and speed up your recovery. This includes your fingers when exposed so that you make a full fist. POSTOPERATIVE CARE/CONCERNS: You may experience some temporary numbness in your fingers. You should have very little to no bleeding on your dressing. Notify the office (see contact info at bottom of page) for any of the following: Excessive pain not relieved by rest, elevation, and pain medications Feeling that the dressing is too tight in spite of adequately elevating hand/arm Active bleeding through the dressing Drainage from the wound site or pin sites Foul odor from the dressing/wound Temperature greater that 101? F or chills Blue or excessively cold fingertips Numbness of the fingertips that does not improve in spite of adequately elevating hand/arm PAIN MEDICATION: A prescription for pain medication has been sent to the outpatient pharmacy at the [place] [facility]. Do not take pain medication or anti-inflammatories on an empty stomach. It is illegal to drive while taking narcotic pain medication Pain is a normal part of the recovery after surgery. The pain medication provided to you will help to decrease the discomfort but will not completely eliminate the pain. Your pain should decrease over the first few days after surgery which will allow you to take less pain medicine, increase the time between doses of medication, or stop taking all pain medicine. Please refer to the Perioperative Narcotic Considerations form below OFFICE CONTACT NUMBERS During business hours (Mon-Fri 8am-4:30pm) Dr. Franklin's Nurse: KATHERYN NAVAS phone: [phone] After hours/weekend (Emergencies Only; no medication refills) [facility]: [phone] or toll-free Perioperative Narcotic Considerations The Orthopedic hand surgeons of [facility] manage perioperative pain as wellas the pain after an acute injury. Our surgeons do not manage chronic pain (pain three months afterthe injury/surgery), and will refer patients seeking longer term care for their painful condition to a pain management service or their primary physician as those physicians typically establish retirement treatment relationships with patients. Following elective hand and upper extremity surgery, a prescription for an opioid-based medication will likely be given to the patient. ???Minor??? procedures such as carpal tunnel release, trigger finger release and ganglion excision will receive 8-20 tablets of Tylenol with Codeine, Tramadol, or [place]. Your surgeon will decide which is the most appropriate. Most other procedures will be [id number] tablets. Procedures that will need aggressive and continuous post-operative hand therapy (andadequate acute pain control during this period) may need a greater number of pain tablets to last the during the therapy period. Your surgeon may discuss with you reasoning behind the number of tablets that will be prescribed. There are many things that a patient can do to manage their pain after surgery or after an acute injury: Move the shoulder, elbow and all other joints that are not immobilized by the post-operative dressing as much as possible. Elevate the operated hand and wrist so that swelling can be reduced. Place ice and a few ounces of tap water in a small sealed plastic bag, and place it on the outside of the surgical dressing. Keep it there until the operated part under the ice bag starts to feel cold. This can reduce both pain and swelling. Anti-inflammatory pain medication such as Advil, Aleve, generic Ibuprofen, generic Naproxen or generic Naprosyn can all be used in addition to the narcotics prescribed by your doctor. Prescription anti-inflammatory pain medication such as Celebrex, Indocin or Toradol can be called in to your pharmacy if ???[id number]-[id number]??? anti- inflammatory pain medication do not decrease the pain even when taken on a regular basis. These can be called in during the hours 9am to 4pm, during the workweek. ???Alternative??? treatments such as acupuncture, meditation and biofeedback can all be used to decrease post-operative pain. The Orthopedic hand surgeons of [facility] want you to be as comfortable as possible following your operation or your injury, and we want you to return to your level of active function as quickly as possible. Although narcotics (opioid medications) can have a role in obtaining pain relief after surgery or injury, the prolonged use of these highly addictive medications can- and do- have severe side effects. Even in patients who are not addicted, narcotics become less effective over time as the body becomes tolerant to the drug and there is evidence that prolonged use mayincrease the body???s interpretation of pain. The ???opioid epidemic??? in [place] is very real, and we as physicians are duty-bound to be as appropriate as can be in the administration of narcotics. When prescribed narcotics, you should start with a plan of how to wean off of them and where you will keep the drug to avoid any misuse by those around you. If you have any questions about our philosophy regarding the prescriptions of narcotic medications for the relief of pain following surgery orinjury, please talk to your surgeon or his/her nurse or MA. CLUB MAKER CLUB MAKER documented in this encounter Medications at Time of Discharge albuterol HFA (PROVENTIL HFA,VENTOLIN HFA,PROAIR HFA) 90 mcg/actuation inhaler INHALE 2 PUFFS BY MOUTH EVERY 6 HOURS NEEDED FOR SHORTNESS OF BREATH 11/10/2021 ALPRAZolam (XANAX) 0.25 mg tabletIndications :Insomnia,anxiety Take 1-2 tablets (0.25-0.5 mg total) by mouth nightly as needed for anxiety or sleep 12/03/2020 biotin 1 mg tabletIndications :Hair/skin health Take 1 tablet (1,000 mcg total) by mouth every morning buPROPion XL (WELLBUTRIN XL) 150 mg 24 hr tabletIndications :major depressive disorder Take 1 tablet (150 mg total) by mouth every morning 10/12/2021 cetirizine (ZyrTEC) 10 mg tabletIndications :Allergic Rhinitis Take 2 tablets (20 mg total) by mouth every morning escitalopram (LEXAPRO) 20 mg tabletIndications :Anxiety with Depression Take 0.5 tablets (10 mg total) by mouth every morning 09/08/2020 glucosamine/chond r evans A sod (OSTEO BI-FLEX ORAL)Indications: Joint health Take 1 capsule by mouth every morning herbal drugs tablet Take by mouth Estrodim tab 2 tab by mouth a bedtime / hormorne replacement HYDROcodone-aceta minophen (NORCO) 5-325 mg per tabletIndications :Pain Take 1 tablet by mouth every 6 (six) hours as needed for pain 30 tablet 03/21/2023 lisinopril-hydroC HLOROthiazide (ZESTORETIC) 10-12.5 mg per tabletIndications :hypertension Take 1 tablet by mouth every morning 10/13/2021 montelukast (SINGULAIR) 10 mg tabletIndications :Perennial Allergic Rhinitis,Seasonal Allergic Rhinitis Take 1 tablet (10 mg total) by mouth 2 (two) times a day multivit-minerals /folic acid (CENTRUM ADULT 50 PLUS ORAL)Indications: Vitamin Deficiency Prevention Take 1 tablet by mouth every morning Panax ginseng root (Ginseng Occitan) 518 mg capsule Take by mouth 2 (two) times a day as needed Red Ginseng tea drinks 1-2 cups of tea daily to helps menopausal symptoms progesterone (PROMETRIUM) 200 mg capsule Take 1 capsule (200 mg total) by mouth every morning 02/28/2023 RESVERATROL ORALIndications:a nti oxidant Take 1 tablet by mouth every morning testosterone 100 mg pelletIndications :hormone replacement every 4 (four) months Inject pellet under skin every 4 months turmeric root extract 500 mg capsuleIndication s:Anti-inflammato ry Take 3 capsules by mouth every morning valACYclovir (VALTREX) 1 gram tabletIndications :Prophylaxis, Medical,allergy face rash Take 2 tablets (2,000 mg total) by mouth 2 (two) times a day 06/19/2019 naproxen (NAPROSYN) 500 mg tabletIndications :Migraines Take 1 tablet (500 mg total) by mouth as needed for headaches (Migraine headace) 08/22/2020 4 SUMAtriptan (IMITREX) 100 mg tabletIndications :Migraine Take 1 tablet (100 mg total) by mouth as needed 10/26/2020 4 zolpidem (AMBIEN) 5 mg tabletIndications :Sleep-Onset Insomnia Take 1 tablet (5 mg total) by mouth nightly 10/26/2020 4 documented as of this encounter Ordered Prescriptions Prescription Sig Dispense Quantity Refills Last Filled Start Date End Date HYDROcodone-acetami nophen (NORCO) 5-325 mg per tabletIndications:P ain Take 1 tablet by mouth every 6 (six) hours as needed for pain 30 tablet 03/21/2023 documented in this encounter Discharge Disposition Disposition Code Departure Means Destination Comment s Discharge to home or self care documented in this encounter H&P Notes * Mimi Pineda MD - 03/21/2023 11:49 AM CST I have reviewed the H&P, examined the patient, and endorse the findings as written. Plan of Care : Based on the above findings, I consider Jody Mason to be an acceptable risk for : Procedure(s): ARTHROPLASTY CARPOMETACARPAL INTERPOSITIONAL WITH RECONSTRUCTION LIGAMENT - REVISION THUMB Cosigned by Anurag Franklin MD at 03/21/2023 2:44 PM GOLF [employer]UB [employer]KER CLUB MAKER CLUB MAKER Source Note - Fede Lesawang Ramsey NP - 03/14/2023 3:56 PM [employer]OLF [employer]KER Images from the original note were not included. [facility] for Preoperative Assessment and Planning Preoperative Evaluation Record Evaluation type/location: TPAP from [facility] Planned procedure site: [facility] CAM OR (Pod 4) Date: 03/14/23 NOTE: This note represents a preoperative evaluation initiated via telephone interview. NO PHYSICALEXAM was performed at the time of initial assessment. A physical exam may be added to this note anddocumented below. Anesthesia Evaluation Jody Mason is a 53 y.o. female Procedure(s): ARTHROPLASTY CARPOMETACARPAL INTERPOSITIONAL WITH RECONSTRUCTION LIGAMENT - REVISION THUMB Pre-Op Diagnosis Codes: * Thumb pain, left [M79.645] HISTORY HPI Jody Mason is a 53 y.o. female who is being evaluated prior to undergoing ARTHROPLASTY CARPOMETACARPAL INTERPOSITIONAL WITH RECONSTRUCTION LIGAMENT - REVISION THUMB (Left: Wrist). Past Medical History Information obtained from: patient and chart. Neurological Pertinent negatives: seizures; neuromuscular disease; CVA/stroke and TIA Cardiovascular + Hypertension (no changes to BP regimen recently, does not check BP at home) Pertinent negatives: CAD ; [place] ; CABG ; valvular heart disease; atrial fibrillation; pacemaker/ICD; DVT/PE; negative for CHF; drug-eluting stent(s) and bare metal stent(s) Respiratory + Asthma (havent use albuterol in ~10 months) Dyspnea frequency: never. Rescue inhaler use: never. Hospitalizations/ER in the last year: 0. Pertinent negatives: COPD; sleep apnea (WES); pulmonary hypertension; no O2 use outside the hospital; no history of oral steroid use; no prior intubation for respiratory failure due to asthma and non-smoker Hepatic / Heme Pertinent negatives: liver disease Gastrointestinal + GERD - does not use medication. Asymptomatic. Renal / Pertinent negatives: renal disease and dialysis Musculoskeletal/Pain Pertinent negatives: chronic pain and chronic opioid use Endocrine / Other Pertinent negatives: diabetes mellitus; thyroid disease; obesity (BMI >30); cancer history; rheumatological disease; transplanted organ and infectious disease Functional Capacity Functional capacity: 4-6 METs Comments: Patient able to climb 2 flights of stairs without SOB or CP. Patient lives in a house with three flights of stairs and climbs them often. Review of Systems + hard of hearing (bilateral hearing aids) + vision loss (glasses and contacts) Pertinent negatives: productive cough; wheezing; SOB; recent cold/flu; fever; chest pain; palpitations; orthopnea; pedal edema; PND; previous transfusion; bleeding problems; syncope; dizziness; chronic pain; nausea; diarrhea; dentures/partials; chipped/loose teeth and abdominal pain PAT Summary and Plans Preoperative assessment status: complete. Additional comments: Jody Mason is a 53 y.o. female who is being evaluated prior to undergoing a low cardiac risk surgery. Revised Cardiac Risk Index factors are (none) for a total RCRI of 0 out of 6. Functional capacity is 4-6 METs. >Patient reports limited cervical rotation and lateral neck flexion due to neck pain, patient reports full ROM for cervical flexion and extension. Obstructive sleep apnea (WES) screening status is STOP-BANG incomplete at 3-4 suggesting MODERATE risk for WES. Neck circumference pending. May need WES order set initiated if Co2 >27. DOS WES orders placed This assessment was performed via telephone. Therefore the physical exam has been deferred to the day of surgery team. The patient was provided with preoperative instructions for their medications. Patient instructions were provided by telephone and electronically sent via [employer]. Patient verbalized understanding of instructions. Blood bank needs for day of procedure: No type and screen needed Pending labs/tests include: POC Hcg Urine 11/10/22 CMP and CBC reviewed and without significant findings from a perioperative standpoint TPAP assessment complete Preoperative evaluation performed by Julianne Mistry NP on 03/14/23 at 4:00 PM . Patient Active Problem List Diagnosis Date Noted Thumb pain, left 03/06/2023 Arthritis of carpometacarpal (CMC) joint of left thumb 11/11/2020 Mild episode of recurrent major depressive disorder (HCC) 06/24/2020 Benign hypertension 01/02/2017 Insomnia 01/02/2017 Migraine with aura and without status migrainosus, not intractable 01/02/2017 Postcholecystectomy diarrhea 01/02/2017 Past Medical History: Diagnosis Date Arthritis Asthma Hypertension Migraines Motion sickness Past Surgical History: Procedure Laterality Date ABDOMINOPLASTY N/A tummy tuck AUGMENTATION MAMMAPLASTY Bilateral 2005 SECTION 2008 SECTION 2011 CHOLECYSTECTOMY 2010 COCCYGECTOMY tip of tailbone surgery - unknown date COLONOSCOPY 08/26/2020 COLONOSCOPY performed by Barrington Bueno MD at [facility] TRAPEZIUM RESECTION Left 12/08/2020 TRAPEZIECTOMY - INTERNAL BRACE (Left) OB History No obstetric history on file. Allergies Allergen Reactions Morphine Headache Caused bad migraines Trazodone Other (See comments) Nightmares Med List Status: Nurse Complete Set By: Ashley Fenton RN at 03/07/2023 12:56 PM Taking? Last Dose Start Date End Date Provider albuterol HFA (PROVENTIL HFA,VENTOLIN HFA,PROAIR HFA) 90 mcg/actuation inhaler -- 11/10/21 -- ProviderChayito MD Notes: None in more than a month ALPRAZolam (XANAX) 0.25 mg tablet 03/06/2023 12/03/20 -- Provider, MD Chayito biotin 1 mg tablet 03/07/2023 -- -- Chayito Bejarano MD buPROPion XL (WELLBUTRIN XL) 150 mg 24 hr tablet 03/07/2023 10/12/21 -- ProviderChayito MD cetirizine (ZyrTEC) 10 mg tablet 03/07/2023 -- -- Chayito Bejarano MD escitalopram (LEXAPRO) 20 mg tablet 03/07/2023 09/08/20 -- ProviderChayito MD glucosamine/chondr evans A sod (OSTEO BI-FLEX ORAL) 03/07/2023 -- -- ProviderChayito MD herbal drugs tablet 03/06/2023 -- -- Chayito Bejarano MD lisinopril-hydroCHLOROthiazide (ZESTORETIC) 10-12.5 mg per tablet 03/07/2023 10/13/21 -- ProviderChayito MD montelukast (SINGULAIR) 10 mg tablet 03/07/2023 -- -- Chayito Bejarano MD multivit-minerals/folic acid (CENTRUM ADULT 50 PLUS ORAL) 03/07/2023 -- -- Chayito Bejarano MD naproxen (NAPROSYN) 500 mg tablet -- 08/22/20 -- Chayito Bejarano MD Notes: None in over a month Panax ginseng root (Ginseng Occitan) 518 mg capsule 03/07/2023 -- -- Chayito Bejarano MD progesterone (PROMETRIUM) 200 mg capsule 03/07/2023 02/28/23 -- Chayito Bejarano MD RESVERATROL ORAL 03/07/2023 -- -- Chayito Bejarano MD SUMAtriptan (IMITREX) 100 mg tablet Past Month 10/26/20 -- Chayito Bejarano MD Notes: None in over a month testosterone 100 mg pellet -- -- -- Chayito Bejarano MD Notes: Last injection end of December / Due in Apr 03, 2023 turmeric root extract 500 mg capsule 03/07/2023 -- -- Chayito Bejarano MD valACYclovir (VALTREX) 1 gram tablet -- 06/19/19 -- Chayito Bejarano MD Notes: None in over a year for fever blister zolpidem (AMBIEN) 5 mg tablet 03/06/2023 10/26/20 -- Chayito Bejarano MD No current facility-administered medications for this encounter. Current Outpatient Medications: albuterol HFA (PROVENTIL HFA,VENTOLIN HFA,PROAIR HFA) 90 mcg/actuation inhaler ALPRAZolam (XANAX) 0.25 mg tablet biotin 1 mg tablet buPROPion XL (WELLBUTRIN XL) 150 mg 24 hr tablet cetirizine (ZyrTEC) 10 mg tablet escitalopram (LEXAPRO) 20 mg tablet glucosamine/chondr evans A sod (OSTEO BI-FLEX ORAL) herbal drugs tablet lisinopril-hydroCHLOROthiazide (ZESTORETIC) 10-12.5 mg per tablet montelukast (SINGULAIR) 10 mg tablet multivit-minerals/folic acid (CENTRUM ADULT 50 PLUS ORAL) naproxen (NAPROSYN) 500 mg tablet Panax ginseng root (Ginseng Occitan) 518 mg capsule progesterone (PROMETRIUM) 200 mg capsule RESVERATROL ORAL SUMAtriptan (IMITREX) 100 mg tablet testosterone 100 mg pellet turmeric root extract 500 mg capsule valACYclovir (VALTREX) 1 gram tablet zolpidem (AMBIEN) 5 mg tablet Social History Tobacco Use Smoking Status Former Packs/day: 1.00 Years: 13.00 Additional pack years: 0.00 Total pack years: 13.00 Types: Cigarettes Start date: 1992 Quit date: 2006 Years since quittin.0 Smokeless Tobacco Never Alcohol Use: Not At Risk (03/07/2023) AUDIT-C Frequency of Alcohol Consumption: 4 or more times a week Average Number of Drinks: 1 or 2 Frequency of Binge Drinking: Never Substance and Sexual Activity Drug Use Yes Types: Marijuana Comment: Rare THC in vape pen/ gummies Family History Problem Relation Age of Onset Arthritis Mother Heart disease Father Hypertension Father Alcohol abuse Brother Mental illness Brother Anesthesia problems Neg Hx There were no vitals filed for this visit. Relevant diagnostics: ECG(s): N/A Echocardiogram(s): N/A Stress test(s): N/A Cardiac catheterization(s): N/A PFT(s): N/A Vascular studies: N/A Other: 04/27/22: MRI Cervical spine IMPRESSION: 1. Cervical degenerative disc and joint disease as described above, most pronounced at C5-6. PT: No results found for requested labs within last 30 days. INR: No results found for requested labs within last 30 days. APTT: No results found for requested labs within last 30 days. Hgb A1C: No results found for requested labs within last 30 days. CBC RBC: No results found for requested labs within last 30 days. RDW: No results found for requested labs within last 30 days. MCHC: No results found for requested labs within last 30 days. MCH: No results found for requested labs within last 30 days. MCV: No results found for requested labs within last 30 days. Hct: No results found for requested labs within last 30 days. Hgb: No results found for requested labs within last 30 days. WBC: No results found for requested labs within last 30 days. MPV: No results found for requested labs within last 30 days. Platelets: No results found for requested labs within last 30 days. RDW CV: No results found for requested labs within last 30 days. RDW Sd: No results found for requested labs within last 30 days. BMP Glucose: No results found for requested labs within last 30 days. Calcium: No results found for requested labs within last 30 days. Sodium: No results found for requested labs within last 30 days. Potassium: No results found for requested labs within last 30 days. CO2: No results found for requested labs within last 30 days. Chloride: No results found for requested labs within last 30 days. BUN: No results found for requested labs within last 30 days. Creatinine: No results found for requested labs within last 30 days. Cody index score: 100 CLUB MAKER documented in this encounter Miscellaneous Notes * Op Note - Anurag Franklin MD - 03/21/2023 4:11 PM CST Date of Surgery: 03/21/2023 Pre-operative Diagnosis: Failed arthroplasty left thumb base Post-operative diagnosis: Same Procedure: Removal internal brace implant Flexor carpi radialis and abductor pollicis longus tendon transfer to thumb base Attending Surgeon: Anurag Franklin MD, M.Sc. [facility](C) Resident: 1. Mimi Pineda MD Clean Room Technician: Maria Del Carmen Pdero Clean Room Technician Relief: Debbie Mckeon RN Scrub Relief: Blaine Yadav ST Scrub: Debbie Mckeon RN FLOAT: Blaine Yadav ST; Soledad Jimenez RN Anesthesia: Choice Blood loss: 5 mL Tourniquet Time: Total Tourniquet Time Documented: Arm - Upper (Left) - 64 minutes Total: Arm - Upper (Left) - 64 minutes Findings: No purulence or other sign of infection, profoundly subsided thumb base Specimen: No specimens collected during this procedure. Complications: None Indications: Pain not responsive to continued non operative management The risks discussed included bleeding, infection, damage to blood vessels/nerves/tendons/bone, chronic pain, stiffness, and need for additional surgery. The patient had a good understanding of this and elected to proceed. Informed consent was obtained. Site Marking: The operative site was marked in the holding area. The consent was verified and all questions were answered. Time Out Procedure: A preprocedural pause was conducted to verify correct patient side, site, procedure, allergies, antibiotics and post-operative plan. Informed consent was obtained prior to the surgery and the patient was brought to the operating room. The patient was positioned supine on the OR table with use of a hand table. Sequential compression devices were applied to the bilateral lower extremities as indicated. Anesthesia was induced as noted above. A preprocedural pause was conducted to verify correct patient side, site and procedure aswell as confirm the wound class, and presence of mechanical DVT prophylaxis. The arm was then sterilely prepped and draped in the usual sterile fashion, and a nonsterile tourniquet was placed high above the elbow. Appropriate preoperative antibiotics were given as indicated. The tourniquet was theninflated. Longitudinal incision was made over the base of the trapezium. Sensory branch of the radial nerve was protected. Abductors of the thumb and EPB were identified and split. We went through the snuffboxand identified the radial artery. It was dissected distally and then retracted proximally to exposethe capsule over the proximal thumb metacarpal . We then placed traction on the thumb remove the int ernal brace, and exposed the FCR tendon. Small proximal incision was made over the musculotendinousjunction of the FCR which was then divided and the FCR tendon delivered distally into the wound. Two suture anchors were placed, one in the base of the thumb metacarpal and one in the base of the index metacarpal. The bone was extremely soft of the thumb base. These were small anchors with 2 0 suture pre placed. Abductor pollicis longus tendon was then identified and divided proximally and then delivered through the volar wrist capsule in a dorsal were direction. The FCR tendon was delivered into the wound in toto. Base of the index metacarpal was sewn to the abductor pollicis longus tendon in the base of the thumb metacarpal was sewn to the FCR tendon which was then sewn together into an anchovy like configuration. Wound was irrigated copiously with sterile saline and Ancef. Capsular repair was done. Nice suspension was achieved clinically. Skin was closed both proximally at the musculotendinous FCR junction and distally over the arthroplasty space. A a sterile compressive non constrictive plaster dressing was then applied. Patient was then awakened uneventfully by the anesthesia provider. Drains: Active and Removed None Implants: Implant Name Type Inv. Item Serial No. Operations Expert Lot No. LRB No. Used Action DEPUY MITEK Quickanchor Plus Ethibond 2-0 V-5 Mini [place] Suture [id number] - [id number] DEPUY MITEK Quickanchor Plus Ethibond 2-0 V-5 Mini [place] Suture [id number] Depuy Mitek [id number] Left 2 Implanted Counts: All needle, sponge, and instrument counts were correct at the end of the case. Condition: The patient was transferred to the PACU in good condition. Attending participation: I was present and scrubbed for all crtical portions of the case including internal brace implant excision and both tendon transfers for mormonism of stability to the thumb base. I was immediately available for all non critical components of the case. Post-operative plan Cast after suture removal in two weeks. Cast will likely be on for 3-4 weeks. CLUB MAKER * Brief Op Note - Mimi Pineda MD - 03/21/2023 4:11 PM CST Operative Progress Note Surgical Team: Surgeon(s) and Role: * Anurag Franklin MD - Primary * Mimi Pineda MD - Resident - Assisting Anesthesiologist: Michelle Tompkins MD DESKTOP SPECIALIST: Rosalinda Overton CRNA Clean Room Technician: Maria Del Carmen Pedro Clean Room Technician Relief: Debbie Mckeon RN Scrub Relief: Blaine Yadav ST Scrub: Debbie Mckeon RN FLOAT: Blaine Yadav ST; Soledad Jimenez RN DATE OF SURGERY : 03/21/2023 Preoperative Diagnosis: Pre-op Diagnosis * Thumb pain, left [M79.645] Postoperative Diagnosis: Post-op Diagnosis * Thumb pain, left [M79.645] Procedure(s): Procedure(s) (LRB): ARTHROPLASTY CARPOMETACARPAL INTERPOSITIONAL WITH RECONSTRUCTION LIGAMENT - REVISION THUMB (Left) Operative Findings: Trapeziectomy and old suture anchors for prior cmc arthroplasty Estimated Blood Loss: 5 mL Intraoperative Fluids: See anesthesia record Specimens: No specimen collected in procedure Implants: Implant Name Type Inv. Item Serial No. Operations Expert Lot No. LRB No. Used Action DEPUY MITEK Quickanchor Plus Ethibond 2-0 V-5 Mini [place] Suture [id number] - [id number] DEPUY MITEK Quickanchor Plus Ethibond 2-0 V-5 Mini [place] Suture [id number] Depuy Mitek [id number] Left 2 Implanted Blood/Blood Products Transfused: 0 mls Complications: None Condition on Discharge from the operating room was stable Mimi Pineda MD Date: 03/21/2023 Time: 5:21 PM TEACHING ATTESTATION : I was present and directly participated in the entire procedure (including opening and closing). Cosigned by Anurag Franklin MD at 03/22/2023 8:28 AM GOLF CLUB MAKER CLUB MAKER CLUB MAKER * Pre-Procedure Instructions - Julianne Mistry NP - 03/14/2023 3:47 PM CST [facility] Pre[facility] and Planning CP[facility] Clinic Location: [facility] The night before your surgery: * Do not eat anything after midnight the night before your procedure. and * Do not smoke or use tobacco products after midnight the night before surgery. It is best to stop smoking now to improve your health. The morning of your surgery: * You may have clear liquids on your surgery day. You must stop drinking two hours before you arrive to the surgery facility. Acceptable clear liquids include water, clear sports drinks, black coffee, or clear soda. DO NOT drink any milk, creamer, or alcohol. * Your surgeon's office may have provided additional instructions or restrictions. Please follow those instructions. * You may brush your teeth and rinse your mouth out. * Do not glue your dentures. * Do not wear jewelry, body piercings, makeup, hairpins, false eyelashes or contact lenses to the hospital. * Leave any valuables at home or with your family. * If you are still having menstrual cycles, you should come with a full bladder on the morning of surgery in order to provide a urine sample. * If you have an implantable device with a remote, bring the remote with you on the day of surgery. Outpatient Surgery: * You must have a responsible adult drive you home and stay with you for 24 hours after your surgery * You cannot be alone at home or in a hotel * Please call your surgeon's office if you do not have someone to drive you home and/or stay with you after surgery * Please bring any items you may need to spend the night in the hospital. Sometimes patients need to be cared for in the hospital overnight. Instructions For Your Medications: Pre-Surgery Instructions: Medication Instructions albuterol HFA (PROVENTIL HFA,VENTOLIN HFA,PROAIR HFA) 90 mcg/actuation inhaler Take on day of surgery if needed ALPRAZolam (XANAX) 0.25 mg tablet Take on day of surgery if needed biotin 1 mg tablet Don't take on day of surgery buPROPion XL (WELLBUTRIN XL) 150 mg 24 hr tablet Take morning of surgery cetirizine (ZyrTEC) 10 mg tablet Don't take on day of surgery escitalopram (LEXAPRO) 20 mg tablet Take morning of surgery glucosamine/chondr evans A sod (OSTEO BI-FLEX ORAL) Stop taking 1 week prior to surgery herbal drugs tablet Stop taking 1 week prior to surgery lisinopril-hydroCHLOROthiazide (ZESTORETIC) 10-12.5 mg per tablet Don't take on day of surgery montelukast (SINGULAIR) 10 mg tablet Take morning of surgery multivit-minerals/folic acid (CENTRUM ADULT 50 PLUS ORAL) Stop taking 1 week prior to surgery naproxen (NAPROSYN) 500 mg tablet Stop taking 5 days prior to surgery Panax ginseng root (Ginseng Occitan) 518 mg capsule Stop taking 1 week prior to surgery progesterone (PROMETRIUM) 200 mg capsule Take as prescribed RESVERATROL ORAL Stop taking 1 week prior to surgery SUMAtriptan (IMITREX) 100 mg tablet Take on day of surgery if needed testosterone 100 mg pellet Take as prescribed turmeric root extract 500 mg capsule Stop taking 1 week prior to surgery valACYclovir (VALTREX) 1 gram tablet Take on day of surgery if needed zolpidem (AMBIEN) 5 mg tablet Per regular schedule General Instructions For Medications: * Stop all of these medications 5 days prior to your surgery: excedrin, motrin, advil, ibuprofen, aleve, naproxen, meloxicam, celebrex, celecoxib. For medications that you are instructed to take on the morning of surgery, take the medications with a few sips of water. Stop all of these medications 7-14 days prior to your surgery: Vitamin E, Herbal medicines, Diet Pills If you use inhalers, please bring them with you on the day of your procedure. If you have pain, you may take tylenol (acetaminophen). Do not take more than 6 tablets or 3000 mg (3 g) within a 24 period. Call your surgeon and the CPAP clinic if any of the following happens before surgery: Any changes in your health You have a fever You have any signs of an infection (chest, urinary tract or tooth) You have been to the Emergency Room or were in the hospital You have started taking any new medications You have questions about a bowel prep or special diet before surgery You have symptoms of COVID-19 such as a new or worsening cough, shortness of breath, fever, body aches, loss of taste or smell, diarrhea or vomiting, or sore throat. You have a household contact with COVID-19. You test positive for COVID-19. CLUB MAKER * Perioperative Nursing Note - Ashley Fenton RN - 03/07/2023 1:08 PM GOLF CLUB MAKER Center for Preoperative Assessment and Planning Perioperative Nursing Note Telephone Preoperative Evaluation ([facility]) - TELEPHONE ONLY, NO PHYSICAL EXAM Date: 03/07/23 This assessment was completed with the patient. Vitals: 03/07/23 1255 Weight: 62.6 kg (138 lb) Height: 157.5 cm (5' 2 ) CHEST CIRCUMFERENCE: Social History Tobacco Use Smoking Status Former Packs/day: 1.00 Years: 13.00 Additional pack years: 0.00 Total pack years: 13.00 Types: Cigarettes Start date: 1992 Quit date: 2006 Years since quittin.0 Smokeless Tobacco Never Substance and Sexual Activity Drug Use Yes Types: Marijuana Comment: Rare THC in vape pen/ gummies Alcohol Use Q1: How often do you have a drink containing alcohol?: 4 or more times a week Q2: How many drinks containing alcohol do you have on a typical day when you are drinking?: 1 or 2 Q3: How often do you have six or more drinks on one occasion?: Never Outpatient Medications Marked as Taking for the 03/21/23 encounter (Hospital Encounter) Medication Sig Dispense Refill albuterol HFA (PROVENTIL HFA,VENTOLIN HFA,PROAIR HFA) 90 mcg/actuation inhaler INHALE 2 PUFFS BY MOUTH EVERY 6 HOURS NEEDED FOR SHORTNESS OF BREATH ALPRAZolam (XANAX) 0.25 mg tablet Take 1-2 tablets (0.25-0.5 mg total) by mouth nightly as needed for anxiety or sleep biotin 1 mg tablet Take 1 tablet (1,000 mcg total) by mouth every morning buPROPion XL (WELLBUTRIN XL) 150 mg 24 hr tablet Take 1 tablet (150 mg total) by mouth every morning cetirizine (ZyrTEC) 10 mg tablet Take 2 tablets (20 mg total) by mouth every morning escitalopram (LEXAPRO) 20 mg tablet Take 0.5 tablets (10 mg total) by mouth every morning glucosamine/chondr evans A sod (OSTEO BI-FLEX ORAL) Take 1 capsule by mouth every morning herbal drugs tablet Take by mouth Estrodim tab 2 tab by mouth a bedtime / hormorne replacement lisinopril-hydroCHLOROthiazide (ZESTORETIC) 10-12.5 mg per tablet Take 1 tablet by mouth every morning montelukast (SINGULAIR) 10 mg tablet Take 1 tablet (10 mg total) by mouth 2 (two) times a day multivit-minerals/folic acid (CENTRUM ADULT 50 PLUS ORAL) Take 1 tablet by mouth every morning naproxen (NAPROSYN) 500 mg tablet Take 1 tablet (500 mg total) by mouth as needed for headaches (Migraine headace) Panax ginseng root (Ginseng Occitan) 518 mg capsule Take by mouth 2 (two) times a day as needed Red Ginseng tea drinks 1-2 cups of tea daily to helps menopausal symptoms progesterone (PROMETRIUM) 200 mg capsule Take 1 capsule (200 mg total) by mouth every morning RESVERATROL ORAL Take 1 tablet by mouth every morning SUMAtriptan (IMITREX) 100 mg tablet Take 1 tablet (100 mg total) by mouth as needed testosterone 100 mg pellet every 4 (four) months Inject pellet under skin every 4 months turmeric root extract 500 mg capsule Take 3 capsules by mouth every morning valACYclovir (VALTREX) 1 gram tablet Take 2 tablets (2,000 mg total) by mouth 2 (two) times a day zolpidem (AMBIEN) 5 mg tablet Take 1 tablet (5 mg total) by mouth nightly Implants Type Not Specified Arthrex Babyage Ar-8978-Cp Internalbrace Kit Hand Wrist Set Implant Ligament Augmentation - [id number] - Implanted (Left) Thumb Inventory item: ARTHREX Performance Indicator Internalbrace Kit Hand Wrist Set Implant Ligament Augmentation AR-8978-CP Model/Cat number: AR-8978-CP Operations Expert: ArthDeRev Lot number: [id number] Device identifier: [id number] Device identifier type: GS1 As of 12/08/2020 Status: Implanted SKIN Piercings Remaining: Yes Wound (LDAs) Type of Wound (LDA): (none) SCREENINGS Cody index score: 100 NUTRITION PATIENT CARE PLANNING Advance Directives (For Healthcare) Have you reviewed your Advance Directive and is it valid for this stay?: Not applicable Advance Directive: Patient does not have advance directive, Patient refused information Information Provided on Healthcare Directives: No Assistive Devices/DME: Eyeglasses, Contacts Hearing - Right Ear: Hearing aid Hearing - Left Ear: Hearing aid Discharge Planning Type of Residence: Private residence Living Arrangements: Spouse/significant other, Children Support Systems: Spouse/significant other 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 Arrival time and surgical time will be provided to the patient by their surgeon. You should wear clothing that is clean, loose, comfortable and easy to get in and out of on the dayof surgery. You should remove nail coverings, artificial nails and nail portuguese prior to the day of surgery. You should leave your valuables and any jewelry at home. No metal or piercings are allowed in the operating room. You should bring your insurance card, a photo ID (example: Construction Site Crossing Guard's License) and a method of payment for any insurance copay, deductible or copay for discharge medications. You should bring a complete, up-to-date, list of all your medications on the day of surgery, including any over the counter medications or supplements you may take. Please note on your medication list, the last date & time you took each medication. The healthcare team, on the day of surgery, will ask for this information. You should bring your Advanced Directive and/or Living Will with you on the day of surgery if you have not verified a copy is already in your Epic Chart. A Guide for Patients Having Surgery: Your Pathway to Excellent Care OUR GOAL IS TO PROVIDE YOU WITH EXCELLENT CARE Use this guide to learn about what you can do before, during and after surgery to help your recovery. You are the most important person on your health care team. By becoming informed and involved, you can contribute to the success of your surgery. If your surgeon's directions are different than those in this guide, talk with your nurse or surgeon to confirm the information. It is important that you understand how to take care of yourself at home after surgery. Be sure to bring this guide with you on the day of surgery and take it home with you after surgery. Write down questions for your nurse or surgeon on the last page of this booklet. Important pages to be reviewed BEFORE surgery: Page 1: QR codes for Surgery Center maps Page 3: Types of Anesthesia Page 5: Tips for the day & night before surgery Page 6: When to stop eating BEFORE surgery and examples of clear liquids Page 7-10: Preventing Infection: Chlorhexidine Gluconate (CHG) Bathing Instructions You may access A Guide for Patients Having Surgery: Your Pathway to Excellent Care by the followinglink: [email or web address] How To Prepare Your Skin For Surgery Below is the Pre-Surgical Bathing Protocol you should follow for your surgery. If your surgeon provides you different bathing instructions, please follow your surgeon's orders. 2 Day CHG Bathing Protocol (no nasal ointment) PREVENTING INFECTION (DECOLONIZATION): Decolonization is the use of a topical antiseptic soap and sometimes a nasal ointment to remove bacteria (germs) from the skin's surface. Antiseptic soap: Chlorhexidine gluconate or CHG (brand name: Hibiclens??) Before surgery, your entire body must be thoroughly cleaned. CHG helps to reduce the bacteria on your skin. You may be given one or more bottles of CHG or you may be asked to obtain from your preferred pharmacy. Be sure to ask your pharmacist if you need help finding this product. SHOWERING WITH ANTISEPTIC SOAP (CHG) What You Need For Each Shower 60 mL (?? cup) of CHG 2 clean washcloths CHG Bathing Instructions First, shampoo and rinse your hair with your own shampoo (no conditioners). Do this so the antiseptic soap isn't washed off by your shampoo. Wash face with warm water. Turn off shower and stand away from the water. Use 2 clean washcloths to apply the antiseptic soap to all areas as described below: Pour 30 mL (1/8 cup) of CHG on washcloth #1: Using washcloth- start at jawline and firmly massage the soap into the skin in a circular motion to clean neck, shoulders, chest, back, both armpits, arms, hands and abdomen. Finish with legs and feet. Pour 30 mL (1/8 cup) of CHG on washcloth #2: Using washcloth- firmly massage the soap into the skinin a circular motion to clean groin area, perineum and buttocks. (Do not use CHG on genital area.) [place]: The CHG antiseptic soap will not bubble or lather very much. If you get soap in your eyes, ears or mouth, rinse well with cool water. When finished, leave the soap on your skin for 2 minutes before rinsing. Dry off with a clean fresh towel. Wear clean clothes or pajamas to sleep in. After showering DO NOT put on deodorant, hair products or conditioners, lotions or creams, powders,Vaseline or any non-essential products. If you cannot reach the surgical site, such as the back, please have someone help you. Shaving: You may shave your face, legs and underarms during your evening shower before you apply the CHG antiseptic soap. Be careful not to cut or eze your skin. Avoid shaving on the day of surgery. 2-Day CHG Bathing Protocol The Evening Before Surgery: Take a shower with Antiseptic soap (CHG). Follow the steps for ???Showering with Antiseptic Soap (CHG)?? above. Change all linens on your bed so you are sleeping in clean fresh sheets and pillowcases. Remove nail coverings, artificial nails and nail portuguese. The Morning of Surgery: Take a shower with Antiseptic soap (CHG). Follow the steps for ???Showering with Antiseptic Soap (CHG)?? above. Put clean clothes on after you shower. Travel/Exposure Screening: Travel Screening Have you traveled outside the [place] in the last 6 months?: Yes Were you hospitalized in any country besides [place] and [place] in last 6 months?: No Have you traveled outside of the [place] in the last 30 days?: No Exposure Screening Have you been exposed to anyone who is sick in the last 30 days?: No Have you been exposed to or tested positive for COVID-19 within the last 10 days?: No Infectious Disease Screening Are you having any of the following:: None As of 12/27/2021 any COVID TESTING required for surgery will be set up by your surgeon's office. Please reach out to your surgeon's office if you develop any COVID symptoms, test positive for COVID or are exposed to a COVID positive person. If you have questions, please call the CPAP Staff at [phone], Sunday-Sunday 8am-4:30pm. All patients should read the below section: COVID 19 Updates & Visitor Policy: Please access [email or web address] for the most updated information. Information on [facility]: Please view [email or web address] (Patient & Visitor Information) for additional details regarding Advanced Directive forms, AWARE, directions, parking information, lodging, Internet access, dining and more. I For MyChart information, to activate account or password recovery, please go to [email or web address] or call [phone] (toll-free: [phone]), Sun- Sunday 8am-5pm. Information for Suicide Prevention: National Suicide Prevention Lifeline (4-936- 157-LMHQ (7428)) or call or text 229. Chat resources: [email or web address]. Surgery Times: For patients having surgery @ [facility] or [facility] ([facility]), if your surgeon's office has not notified you of your surgery time by NOON THE BUSINESS DAY BEFORE your surgery, please call [phone] and ask for your surgeon's office Dr. Anurag Franklin The [facility] for Preoperative Assessment & Planning (CPAP) does not provide arrival times for the day of surgery or provide the duration of surgery. This information is provided by your surgeon'soffice or by the center where you are having surgery. We appreciate your understanding. 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 Thumb pain, left documented in this encounter Admitting Diagnoses Diagnosis Thumb pain, left documented in this encounter Administered Medications Inactive Administered Medications - up to 3 most recent administrations Medication Order MAR Action Action Date Dose Rate Site Lactated Ringer's (LR) infusion 30 mL/hr, intravenous, Continuous, Starting on Sun03/21/23 at 1245, Pre-Op New Bag 03/21/2023 4:55 PM [employer] Rate/Dose Verify 03/21/2023 3:46 PM [employer] 30 mL/h r New Bag 03/21/2023 12:26 PM [employer] 30 mL/hr 30 mL/hr sodium chloride 0.9% irrigation As needed, Starting on Sun03/21/23 at 1621, Intra-Op Given 03/21/2023 4:21 PM [employer] 1,000 mL Surgical Site sterile water irrigation As needed, Starting on Sun03/21/23 at 1622, Intra-Op Given 03/21/2023 4:22 PM [employer] 1,000 mL Other (Comment) documented in this encounter Discontinued Medications Medication Sig Discontinue Reason Start Date End Da te cholestyramine (QUESTRAN) 4 gram packetIndications:takes since cholecystectomy Take 1 packet by mouth nightly Error 08/22/2020 03/07/2023 diazePAM (VALIUM) 5 mg tablet TAKE DIRECTED UPON ARRIVAL FOR PROCEDURE AND THEN EVERY 6 HOURS NEEDED POST-OP Error 12/15/2020 03/07/2023 ESTRADIOL ORAL Take 2 tablets by mouth nightly Error 03/07/2023 lisinopriL (PRINIVIL,ZESTRIL) 10 mg tabletIndications:hyperte nsion Take 1 tablet (10 mg total) by mouth every morning Error 09/08/2020 03/07/2023 Nortrel 1/35, 28, 1-35 mg-mcg per tabletIndications:Pregnan cy Contraception Take 1 tablet by mouth nightly Error 08/16/2020 03/07/2023 omeprazole (PriLOSEC) 20 mg capsule TAKE 1 CAPSULE(20 MG) BY MOUTH DAILY(GINA ART) Error 06/08/2021 03/07/2023 documented as of this encounter Historical Medications * This list may reflect changes made after this encounter. Panax ginseng root (Ginseng Occitan) 518 mg capsule Take by mouth 2 (two) times a day as needed Red Ginseng tea drinks 1-2 cups of tea daily to helps menopausal symptoms multivit-mineral s/folic acid (CENTRUM ADULT 50 PLUS ORAL)Indications :Vitamin Deficiency Prevention Take 1 tablet by mouth every morning RESVERATROL ORALIndications: anti oxidant Take 1 tablet by mouth every morning herbal drugs tablet Take by mouth Estrodim tab 2 tab by mouth a bedtime / hormorne replacement added in this encounter Active and Recently Administered Medications Times are shown in [employer]. Scheduled Medication Order 03/19/2023 03/20/2023 03/21/2023 ceFAZolin (ANCEF) 2,000 mg/20 mL in sterile water (premix) 2,000 mg (COMPLETED) 2,000 mg, intravenous, at 400 mL/hr, Administer over 3 Minutes, Once, On Sun03/21/23 at 1245, For 1 dose, Pre-Op, Administer within 60 minutes of incision., Indications: Prophylaxis, Surgical 1600 (Given - Provid er: Rosalinda Overton CRNA) Continuous Medication Order 03/19/2023 03/20/2023 03/21/2023 Lactated Ringer's (LR) infusion (CANCELED) 30 mL/hr, intravenous, Continuous, Starting on Sun03/21/23 at 1245, Pre-Op 1226 (New Bag - Prov ider: Delilah Shah RN)1546 (Rate/Dose Verify - Provider: Rosalinda Overton CRNA)1654 (Paused - Provider: Rosalinda Overton CRNA - Comment: Switch to gravity)1655 (New Bag - Provider: Rosalinda Overton CRNA)1711 (Canceled Entry - Provider: Rosalinda Overton CRNA - Comment: Switch to gravity)1712 (Canceled Entry - Provider: Rosalinda Overton CRNA)1713 (Anesthesia Volume Adjustment - Provider: Rosalinda Overton CRNA)1714 (Due: Stopped - Provider: Rosalinda Overton CRNA) Lactated Ringer's (LR) infusion 125 mL/hr, intravenous, Continuous, Starting on Sun03/21/23 at 1800, Phase I 1800 (Due) PRN Medication Order 03/19/2023 03/20/2023 03/21/2023 albuterol 2.5 mg/0.5 mL nebulizer solution 2.5 mg 2.5 mg, nebulization, Once as needed, wheezing, Starting on Sun03/21/23 at 1727, For 1 dose, Phase I, Notify Anesthesiologist. , Indications: Bronchospastic Pulmonary Disease fentaNYL (SUBLIMAZE) preservative free injection 50 mcg 50 mcg, intravenous, Every 10 min PRN, 1st line for pain, Starting on Sun03/21/23 at 1727, Phase I, Notify Anesthesiologist if total PACU dose reaches 100 mcg and pain score 5/10 or more., Indications: Pain hydrALAZINE (APRESOLINE) injection 5 mg 5 mg, intravenous, Administer over 2 Minutes, Every 15 min PRN, high blood pressure, Starting on Sun03/21/23 at 1727, Phase I, Max cumulative dose 20 mg. Dose if systolic BP greater than 180 AND heart rate less than 70. HYDROmorphone (DILAUDID) injection 0.5 mg 0.5 mg, intravenous, Administer over 2 Minutes, Every 10 min PRN, breakthrough pain, Starting on Sun03/21/23 at 1727, For 4 doses, Phase I labetaloL (NORMODYNE,TRANDATE) injection 5 mg 5 mg, intravenous, at 30 mL/hr, Administer over 2 Minutes, Every 10 min PRN, high blood pressure, Starting on Sun03/21/23 at 1727, Phase I, Max cumulative dose 20 mg. Dose if systolic blood pressure greater than 180 AND HR greater than 70. naloxone (NARCAN) 0.4 mg/mL injection 0.04-0.4 mg 0.04-0.4 mg, intravenous, Once as needed, other, excessive sedation/respiratory depression, Starting on Sun03/21/23 at 1727, For 1 dose, Phase I, Dilute 0.4 mg with 9 mL NS (final concentration 0.04 mg/mL). For respiratory depression (respiratory rate less than 6), administer 0.4 mg IVP over 30 seconds. For excessive sedation administer 0.04 mg (1 mL) every 1 minute until desired level of alertness. For IV, administer over 30 seconds., Indications: Opioid Toxicity prochlorperazine (COMPAZINE) injection 10 mg 10 mg, intravenous, Administer over 2 Minutes, Once as needed, nausea, vomiting, Starting on Sun03/21/23 at 1727, For 1 dose, Phase I sodium chloride 0.9% irrigation (CANCELED) As needed, Starting on Sun03/21/23 at 1621, Intra-Op 1621 (Given - Provid er: Anurag Franklin MD) sterile water irrigation (CANCELED) As needed, Starting on Sun03/21/23 at 1622, Intra-Op 1622 (Given - Provid er: Anurag Franklin MD) documented in this encounter Orders Medications Ordered That Christiano ht Not Have Been Administered Count Last Ordered Date First Ordered Date albuterol 2.5 mg/0.5 mL nebu lizer solution 2.5 mg 1 03/21/2023 Carrier Fluids for Secondary Infusion - 0.9% Sodium Chloride 1 03/21/2023 ceFAZolin (ANCEF) 2,000 mg/2 0 mL in sterile water (premix) 2,000 mg 03/21/2023 fentaNYL (SUBLIMAZE) preserv ative free injection 50 mcg 03/21/2023 hydrALAZINE (APRESOLINE) injection 5 mg 1 0 03/21/2023 HYDROmorphone (DILAUDID) injection 0.5 mg 03/21/2023 labetaloL (NORMODYNE,TRANDAT E) injection 5 mg 1 03/21/2023 Lactated Ringer's (LR) infusion 1 naloxone (NARCAN) 0.4 mg/mL injection 0.04-0.4 mg 1 03/21/2023 prochlorperazine (COMPAZINE) injection 10 mg 1 03/21/2023 sodium chloride 0.9% flush 0.5-20 mL 1 03/05 Discharge Count Last Ordered Date First Orde red Date DISCHARGE PATIENT 1 03/21/2023 documented in this encounter Care Teams Director Of Bands Relationship Specialty Start Date End Date Melani Franklin DO [address] [place] [address] PCP - General Internal Medicine 10/05/20 documented as of this encounter
--- OUTSIDE RECORDS SUMMARY | 2024-02-21 16:23 | XMS_ITS | Encounter Summary ---
Author Organization [facility] Address [address] [place] [address] Phone Care Team Providers Care Mud Analysis Well Logging Operator Name Role Phone Melani Franklin Primary Care Provider [phone] Reason for Visit * Reason Comments Follow-up Encounter Details Date Type Department Care Team (Latest Contact Info) Description 03/30/2023 12:20 PM ANTIQUE CLOCK REPAIRER Office Visit [facility] [address] [place] [address] Anurag Franklin MD [address] [facility] [address] [address] [place] [address] Pain of left thumb (Primary Dx); Arthritis [...] on file Legal Sex Female 12:36 PM ANTIQUE CLOCK REPAIRER Gender Identity Female 12/10/2020 10:46 AM CDT Sexual Orientation Not on file documented as of this encounter Progress Notes * Anurag Franklin MD - 03/30/2023 12:20 PM CST Images from the original note were not included. ESTABLISHED PATIENT VISIT INTERIM HISTORY Jody Mason was seen in the office today. She is now 1+ weeks out after basal joint reconstruction. Thumb is nice position. Good longitudinal stability. Good anti position and nice MP neutral to flexed posture.. IMPRESSION/TREATMENT PLAN Thumb cast for three weeks. Then cast off and initiation of motion. Her tissues were so good, we did not need to use a pin. Anurag Franklin M.D., MSc, FRCS(C) Professor [facility] QUE CLOCK REPAIRER * Sadia Albert MS - 03/30/2023 12:20 PM CSTAssociated Order(s): Ortho Casting/Splinting Documentation Post-Procedure Diagnose(s): Pain of left thumb Ortho Casting/Splinting Documentation Date/Time: 03/30/2023 2:19 PM Performed by: Sadia Albert, MS Authorized by: Anurag Franklin MD Sensation: Normal Skin Condition: Clean, dry, and intact Xena/Sutures Removed: No Pin Pulled: No Cast Removed: No Cast Applied: Yes Overwrap: No Location: Hand Hand: L hand Cast type: Thumb spica cast (IP Free, slight hyperextension of wrist.) Supplies: Fiberglass Additional Supplies: Cotton padding and cotton stocking/sleeve Number of fiberglass rolls used: 2 Capillary Refill: Normal Patient tolerance of procedure: Tolerated well, no immediate complications QUE CLOCK REPAIRER documented in this encounter Plan of Treatment Not on file documented as of this encounter Procedures Procedure Name Priority Date/Time Associated Diagnosis Comments W[place] CAST SUP SHT ARM ADULT FBRGL Routine 03/30/2023 2:19 PM ANTIQUE CLOCK REPAIRER Pain of left thumb WV APPLICATION CAST ELBOW FINGER SHORT ARM Routine 03/30/2023 2:19 PM ANTIQUE CLOCK REPAIRER Pain of left thumb documented in this encounter Results * WV APPLICATION CAST ELBOW FINGER SHORT ARM, [place] CAST SUP SHT ARM ADULT FBRGL (03/30/2023 2:19 PM ANTIQUE CLOCK REPAIRER) Narrative Sadia Albert MS - 03/30/2023 2:19 PM ANTIQUE CLOCK REPAIRER Sadia Albert MS ? 03/30/2023 ??2:20 PM Ortho Casting/Splinting Documentation Date/Time: 03/30/2023 2:19 PM Performed by: Sadia Albert MS Authorized by: Aunrag Franklin MD ?? Sensation: ??Normal Skin Condition: ??Clean, dry, and intact Xena/Sutures Removed: No ?? Pin Pulled: No ?? Cast Removed: No ?? Cast Applied: Yes ?? Overwrap: No ?? Location: ??Hand Hand: ??L hand Cast type: ??Thumb spica cast (IP Free, slight hyperextension of wrist.) Supplies: ??Fiberglass Additional Supplies: ??Cotton padding and cotton stocking/sleeve Number of fiberglass rolls used: ??2 Capillary Refill: ??Normal Patient tolerance of procedure: ??Tolerated well, no immediate complications us Anurag Franklin MD IN CLINIC/BEDSIDE ORDERABLES Final Result documented in this encounter Visit Diagnoses Diagnosis Pain of left thumb- Primary Arthritis of carpometacarpal (CMC) joint of left thumb documented in this encounter Discontinued Medications Medication Sig Discontinue Reason Start Date End Da te zolpidem (AMBIEN) 5 mg tabletIndications:Sle ep-Onset Insomnia Take 1 tablet (5 mg total) by mouth nightly Discontinued by another clinician 10/26/2020 03/30/2023 SUMAtriptan (IMITREX) 100 mg tabletIndications:Christiano veronica Take 1 tablet (100 mg total) by mouth as needed Discontinued by another clinician 10/26/2020 03/30/2023 naproxen (NAPROSYN) 500 mg tabletIndications:Christiano alex Take 1 tablet (500 mg total) by mouth as needed for headaches (Migraine headace) Discontinued by another clinician 08/22/2020 03/30/2023 documented as of this encounter Care Teams Mud Analysis Well Logging Operator Relationship Specialty Start Date End Date Melani Franklin DO [address] [facility] [address] [place] [address] PCP - General Internal Medicine 10/05/20 documented as of this encounter
--- OUTSIDE RECORDS SUMMARY | 2024-02-21 16:23 | XMS_ITS | Encounter Summary ---
Author Organization [facility] Healthcare Address [address] [place] [address] Care Team Providers Care Business Director Name Role Phone Melani Franklin [place] Primary Care Provider [phone] Reason for Visit * Auth/Cert (Routine) Specialty Diagnoses / Procedures Referred By Tyrone t Referred To Contact Diagnoses Thumb pain, left Thumb pain, left [M79.645] Procedures SC ARTHRP INTERPOS INTERCARPAL/METACARPAL JOINTS ARTHROPLASTY CARPOMETACARPAL INTERPOSITIONAL WITH RECONSTRUCTION LIGAMENT - REVISION THUMB Referral ID Status Reason Start Date Expiration Date Visits Re quested Visits Authorized [id number] 1 1 Encounter Details Date Type Department Care Team (Late st Contact Info) Description 03/21/2023 3:46 PM MOSAIC WORKER Anesthesia Event [facility] [address] [place] [address] Michelle Tompkins MD [address] [place] [address] Juilanne Mistry NP [address] [facility] [phone] [place] [address] Anesthesia Record Procedure Summary Procedure Name Responsible Anesthesiologist Anesthesia Start Time Anesthesia Stop Time ARTHROPLASTY CARPOMETACARPAL INTERPOSITIONAL WITH RECONSTRUCTION LIGAMENT - REVISION THUMB (Left: Wrist) Michelle Tompkins MD 03/21/23 1546 03/21/23 1727 Events Date Time Event Comment 03/21/2023 1200 In Preop 1219 1416 Time out - Regional 1424 Block Placed 1546 An Start 1550 In Room 1552 An Start Data 1557 An Induction The patient was reevaluated immediately before moderate or deep sedation use and before anesthesia induction. 1600 An LMA 1600 Anesthesia Ready 1611 Incision Start 1611 Quick Note Left upper arm tourniquet up at 250 mm Hg 1611 Proc Start 1711 Quick Note 60 mins on tour niquet acknowledged 1716 Quick Note Tourniquet down 1719 Airway Removed 1720 an stop data 1720 Proc Fin 1722 Out of Room 1727 Handoff to RN I completed my handoff to the receiving nurse during which we: 1. Patient identified 2. Responsible provider identified 3. Pertinent medical history reviewed 4. Procedure type and surgical course discussed 5. Intraoperative anesthetic management and any significant issues discussed 6. Expectations and concerns for postop period discussed 7. Questions solicited from receiving nurse 8. Patient disposition at the time of handoff: No value filed. 1727 An Stop Meds Name Total midazolam PF 2 mg lidocaine (cardiac) syringe 2 % 100 mg propofol 230 mg fentaNYL 100 mcg ondansetron PF (ZOFRAN) 2 mg/mL injectio n 4 mg BUPivacaine 0.5% 25 mL ceFAZolin (ANCEF) 2,000 mg/20 mL in ster ile water (premix) 2,000 mg 2,000 mg dexAMETHasone 4 mg/mL 4 mg Lactated Ringer's (LR) infusion 1,200 mL * Agents Name O2% N2O O2 Air Sevoflurane Inspired Sevoflurane * Blood No blood administrations on file. Lines, Drains, and Airways Type Details Placement Removal RETIRED Surgical Site 12/08/20; 1130; Le ft; Arm; 02/05/24 (Retired LDA, Removed/Completed by [employer] with LDA Utility); 1213 (Retired LDA, Removed/Completed by [employer] with LDA Utility) 12/08/20 1130 by Rahel Tatum RN 02/05/24 1213 by Discharge Provider, Automatic Peripheral IV Placement Date: 03/21/23; Placement Time: 1225; Catheter Size: 20 G; Orientation: Posterior, Right; Location: Hand; Site Prep: Chlorhexidine; Inserted by: kim THOMPSON; Insertion Attempts: 1; Patient Tolerance: Tolerated well; Removal Date: 03/21/23; Removal Time: 1800 03/21/23 1225 by Kim Shah RN 03/21/23 1800 by Essie Rm, DONNA Supraglottic Airway Placement Date: 03/21/23; Placement Time: 1609 (created via procedure documentation); Mask Ventilation: 0; Size: 4; Insertion Attempts: 1; Removal Date: 03/21/23; Removal Time: 171803/21/23 1609 by Rosalinda Overton CRNA 03/21/23 1719 by Rosalinda Overton CRNA RETIRED Surgical Site 03/21/23; 1613; Le ft; Hand; 02/05/24 (Retired LDA, Removed/Completed by [employer] with LDA Utility); 1213 (Retired LDA, Removed/Completed by [employer] with LDA Utility) 03/21/23 1613 by Maria Del Carmen Pedro RN 02/05/24 1213 by Discharge Provider, Automatic documented in this encounter Social History Tobacco Use Types Packs/Day Years Used Date Smoking Tobacco: Former Cigarettes 1 14 1 3 - 2006 Smokeless Tobacco: Never AUDIT-C Answer [...] on file Legal Sex Female 12:36 PM MOSAIC WORKER Gender Identity Female 12/10/2020 10:46 AM CDT Sexual Orientation Not on file documented as of this encounter OR Notes * Anesthesia Postprocedure Evaluation - Michelle Tompkins MD - 03/21/2023 5:50 PM CST Patient: Jody Mason Procedure Summary Date: 03/21/23 Room / Location: [facility] OR POD 4 ROOM G / [facility] OR POD 4 Anesthesia Start: 1546 Anesthesia Stop: 1726 Procedure: ARTHROPLASTY CARPOMETACARPAL INTERPOSITIONAL WITH RECONSTRUCTION LIGAMENT - REVISION THUMB (Left: Wrist) Diagnosis: Thumb pain, left (Thumb pain, left [M79.645]) Surgeons: Anurag Franklin MD Responsible Provider: Michelle Tompkins MD Anesthesia Type: general, regional for postop pain per surgeon request ASA Status: 2 Anesthesia Type: general, regional for postop pain per surgeon request Last vitals BP 124/72 Pulse 84 Temp 36.7 ??C (98.1 ??F) (Temporal) Resp 14 SpO2 99% Anesthesia Post Evaluation Patient location during evaluation: PACU Patient participation: complete - patient participated Level of consciousness: fully awake Pain management: adequate Airway patency: adequate Evidence of recall: no Cardiovascular status: acceptable Respiratory status: acceptable Hydration status: acceptable Pt is: normothermic Nausea/Vomiting status: none No notable events documented. IC WORKER * Anesthesia Procedure Notes - Rosalinda Overton CRNA - 03/21/2023 4:08 PM CSTAssociated Order(s): Airway Airway Patient location: OR Urgency: elective Indications for airway management: anesthesia Difficult airway: no Staff: Placed by: SUPPORT DBA: Rosalinda Overton CRNA Emergent airway documentation: Risks and benefits discussed: yes Consent obtained: yes Consent given by: patient Airway prep: Preoxygenated: yes Patient position: sniffing Mask difficulty assessment: 0 - not attempted Spontaneous ventilation during airway: present Sedation level during airway: GA Final airway details: Final airway type: supraglottic airway Final supraglottic airway: IGel SGA size: 4 Number of attempts: 1no IC WORKER * Anesthesia Procedure Notes - Arely Crum MD - 03/21/2023 3:09 PM MOSAIC WORKER Associated Order(s): Peripheral Block Images from the original note were not included. Peripheral Block Patient location during procedure: pre-op holding Reason for block: post-op pain management per surgeon request Ultrasound image in chart or stored: yes Block type: single shot Laterality: left Block type: brachial - supraclavicular Staff: Supervising provider: Danica Robb MD Placed by: Resident: Arely Crum MD Procedure prep: Preprocedure checklist: patient identified, procedure contraindications assessed, site marked, procedure consent, surgical consent, IV checked, risks, benefits and alternatives discussed, monitors and equipment checked and timeout performed Patient position: supine and head of bed elevated Procedure performed while patient: sedate with meaningful contact Monitoring: ECG, oximetry and blood pressure Supplemental O2: nasal cannula Prep solution: chlorhexidine/alcohol PPE: provider hat/mask, sterile gloves and sterile probe cover and gel Peripheral nerve block: Technique: ultrasound guided Needle type: insulated, short-bevel and echogenic Needle gauge: 22 G Needle length: 80 mm Injection assessment: local visualized surrounding nerve on ultrasound, injection made incrementally with constant monitoring, no paresthesias noted, normal resistance to injection, see flowsheet formedication details and negative aspiration for heme Assessment: Block success: full evaluation pending Events: patient tolerated procedure well with no complications Cosigned by Danica Robb MD at 03/21/2023 3:14 PM MOSAIC WORKER IC WORKER IC WORKER * Anesthesia Preprocedure Evaluation - Michelle Tompkins MD - 03/14/2023 3:56 PM CST Images from the original note were not included. [facility] Preoperative Evaluation Record Evaluation type/location: TPAP from [facility] Planned procedure site: [facility] OR (Pod 4) Date: 03/14/23 NOTE: This note represents a preoperative evaluation initiated via telephone interview. NO PHYSICALEXAM was performed at the time of initial assessment. A physical exam may be added to this note anddocumented below. Anesthesia Evaluation Graca G Shepperson is a 53 y.o. female Procedure(s): ARTHROPLASTY [...] BP at home) Pertinent negatives: CAD ; [place] ; CABG ; valvular heart disease; atrial [...] provided by telephone and electronically sent via [employer]. Patient verbalized understanding of instructions. Blood bank [...] COLONOSCOPY performed by Barrington Bueno MD at [facility] TRAPEZIUM RESECTION Left 12/08/2020 TRAPEZIECTOMY [...] HFA) 90 mcg/actuation inhaler -- 11/10/21 -- Provider, MD [place] Notes: None in more than a month ALPRAZolam (XANAX) 0.25 mg tablet 03/06/2023 12/03/20 -- Provider, HistoricalMD biotin 1 mg tablet 03/07/2023 -- -- Provider, HistoricalMD buPROPion XL (WELLBUTRIN XL) 150 mg 24 hr tablet 03/07/2023 10/12/21 -- Provider, HistoricalMD cetirizine (ZyrTEC) 10 mg tablet 03/07/2023 -- -- Provider, MD [place] escitalopram (LEXAPRO) 20 mg tablet 03/07/2023 09/08/20 -- Provider, HistoricalMD glucosamine/chondr evans A sod (OSTEO BI-FLEX ORAL) 03/07/2023 -- -- Provider, MD [place] herbal drugs tablet 03/06/2023 -- -- Provider, MD [place] lisinopril-hydroCHLOROthiazide (ZESTORETIC) 10-12.5 mg per tablet 03/07/2023 10/13/21 -- Provider, MD [place] montelukast (SINGULAIR) 10 mg tablet 03/07/2023 -- -- Provider, MD [place] multivit-minerals/folic acid (CENTRUM ADULT 50 PLUS ORAL) 03/07/2023 -- -- Provider, MD [place] naproxen (NAPROSYN) 500 mg tablet -- 08/22/20 -- Provider, MD [place] Notes: None in over a month Panax ginseng root (Ginseng Yoruba) 518 mg capsule 03/07/2023 -- -- Provider, HistoricalMD progesterone (PROMETRIUM) 200 mg capsule 03/07/2023 02/28/23 -- Provider, MD [place] RESVERATROL ORAL 03/07/2023 -- -- Provider, HistoricalMD SUMAtriptan (IMITREX) 100 mg tablet Past Month 10/26/20 -- Provider, MD [place] Notes: None in over a month testosterone 100 mg pellet -- -- -- Provider, MD [place] Notes: Last injection end of December / [...] 500 mg tablet Panax ginseng root (Ginseng Yoruba) 518 mg capsule progesterone (PROMETRIUM) 200 mg [...] last 30 days. Cody index score: 100 DOS Physical Exam Medical history, medications, and allergies reviewed. Attestation: This PAT evaluation Airway Exam: Mallampati: II Cervical ROM: FROM Cardiovascular Exam: Rate: regular Rhythm: regular Pulmonary Exam: LCTA, bilat Anesthesia Plan ASA 2 My patient is approved for the Anesthesia Controlled Medication protocol when under care of a SUPPORT DBA Planned anesthesia: General and regional for postop pain per surgeon request Induction: Induction: intravenous. Postoperative Plan: Patient's planned disposition post procedure is Outpatient. Informed Consent: Discussed plan with SUPPORT DBA. Anesthesia plan and risks discussed with patient. Consent and Attending signature: I and/or my designee have discussed the anesthesia plan, benefits, possible alternatives, parental presence at time of induction (if indicated), and clinically relevant risks that may include dental injury, unintentional awareness, and/or other complications. The patient and/or parent/legal guardian understand, and agree to proceed. All questions answered. IC WORKER IC WORKER documented in this encounter Miscellaneous Notes * Addendum Note - Nacho Emerson CRNA - 03/22/2023 8:36 AM MOSAIC WORKER Addendum created 03/22/23835 by Nacho Emerson CRNA Intraprocedure Staff edited IC WORKER documented in this encounter Plan of Treatment Not on file documented as of this encounter Procedures Procedure Name Priority Date/Time Associated Diagnosis Comments SC AN PROCEDURE PLACEHOLDER Routine 03/21/2023 4:08 PM MOSAIC WORKER SC AN ELECTIVE SUPRAGLOTTIC AIRWAY Routine 03/21/2023 4:08 PM MOSAIC WORKER SC AN PROCEDURE PLACEHOLDER Routine 03/21/2023 3:09 PM MOSAIC WORKER documented in this encounter Results * SC AN ELECTIVE SUPRAGLOTTIC AIRWAY, SC AN PROCEDURE PLACEHOLDER (03/21/2023 4:08 PM MOSAIC WORKER) Narrative Rosalinda Overton CRNA - 03/21/2023 4:08 PM MOSAIC WORKER Rosalinda Overton CRNA ? 03/21/2023 ??4:09 PM Airway Patient location: OR Urgency: elective Indications for airway management: anesthesia Difficult airway: no Staff: Placed by: SUPPORT DBA: Rosalinda Overton CRNA Emergent airway documentation: Risks and benefits discussed: yes Consent obtained: yes Consent given by: patient Airway prep: Preoxygenated: yes Patient position: sniffing Mask difficulty assessment: 0 - not attempted Spontaneous ventilation during airway: present Sedation level during airway: GA Final airway details: Final airway type: supraglottic airway Final supraglottic airway: IGel SGA size: 4 Number of attempts: 1no Michelle Tompkins MD ANESTHESIA ORDERABLES Fin al Result * SC AN PROCEDURE PLACEHOLDER (03/21/2023 3:09 PM MOSAIC WORKER) Narrative Danica Robb MD - 03/21/2023 3:09 PM MOSAIC WORKER Arely Crum MD ? 03/21/2023 ??3:10 PM Peripheral Block Patient location during procedure: pre-op holding Reason for block: post-op pain management per surgeon request Ultrasound image in chart or stored: yes Block type: single shot Laterality: left Block type: brachial - supraclavicular Staff: Supervising provider: Danica Robb MD Placed by: Resident: Arely Crum MD Procedure prep: Preprocedure checklist: patient identified, procedure contraindications assessed, site marked, procedure consent, surgical consent, IV checked, risks, benefits and alternatives discussed, monitors and equipment checked and timeout performed Patient position: supine and head of bed elevated Procedure performed while patient: sedate with meaningful contact Monitoring: ECG, oximetry and blood pressure Supplemental O2: nasal cannula Prep solution: chlorhexidine/alcohol PPE: provider hat/mask, sterile gloves and sterile probe cover and gel Peripheral nerve block: Technique: ultrasound guided Needle type: insulated, short-bevel and echogenic Needle gauge: 22 G Needle length: 80 mm Injection assessment: local visualized surrounding nerve on ultrasound, injection made incrementally with constant monitoring, no paresthesias noted, normal resistance to injection, see flowsheet for medication details and negative aspiration for heme Assessment: Block success: full evaluation pending Events: patient tolerated procedure well with no complications Danica Robb MD ANESTHESIA ORDERABLES Final Re sult documented in this encounter Visit Diagnoses Not on filedocumented in this encounter Administered Medications Inactive Administered Medications - up to 3 most recent administrations Medication Order MAR Action Action Date Dose Rate Site BUPivacaine HCl (MARCAINE) 0.5 % (5 mg/mL) injection caudal block, As needed, Starting on Sun03/21/23 at 1424, Anesthesia Intra-op Given 03/21/2023 2:24 PM MOSAIC WORKER 25 mL ceFAZolin (ANCEF) 2,000 mg/20 mL in sterile water (premix) 2,000 mg 2,000 mg, intravenous, at 400 mL/hr, Administer over 3 Minutes, Once, On Sun03/21/23 at 1245, For 1 dose, Pre-Op, Administer within 60 minutes of incision., Indications: Prophylaxis, SurgicalIndications:Prophylaxis, Surgical Given 03/21/2023 4:00 PM MOSAIC WORKER 2,000 mg dexAMETHasone (DECADRON) 4 mg/mL injection intravenous, Administer over 2 Minutes, As needed, Starting on Sun03/21/23 at 1613, Anesthesia Intra-op Given 03/21/2023 4:13 PM MOSAIC WORKER 4 mg fentaNYL (SUBLIMAZE) preservative free injection intravenous, As needed, Starting on Sun03/21/23 at 1604, Anesthesia Intra-op Given 03/21/2023 5:06 PM MOSAIC WORKER 50 mcg Given 03/21/2023 4:04 PM MOSAIC WORKER 50 mcg Lactated Ringer's (LR) infusion 30 mL/hr, intravenous, Continuous, Starting on Sun03/21/23 at 1245, Pre-Op New Bag 03/21/2023 4:55 PM MOSAIC WORKER Rate/Dose Verify 03/21/2023 3:46 PM MOSAIC WORKER 30 mL/h r New Bag 03/21/2023 12:26 PM MOSAIC WORKER 30 mL/hr 30 mL/hr lidocaine (cardiac) (XYLOCAINE) preservative free injection intravenous, As needed, Starting on Sun03/21/23 at 1557, Anesthesia Intra-op, Indications: Ventricular ArrhythmiasIndications:Ventricular Arrhythmias Given 03/21/2023 4: 03 PM MOSAIC WORKER 50 mg Given 03/21/2023 3:57 PM MOSAIC WORKER 50 mg midazolam (VERSED) 2 mg/2 mL preservative free injection intravenous, Administer over 2 Minutes, As needed, Starting on Sun03/21/23 at 1418, Anesthesia Intra-op Given 03/21/2023 2:18 PM MOSAIC WORKER 2 mg ondansetron (ZOFRAN) injection intravenous, Administer over 2 Minutes, As needed, Starting on Sun03/21/23 at 1710, Anesthesia Intra-op Given 03/21/2023 5:10 PM MOSAIC WORKER 4 mg propofoL (DIPRIVAN) 10 mg/mL IV intravenous, As needed, Starting on Sun03/21/23 at 1557, Anesthesia Intra-op Bolus 03/21/2023 5:06 PM MOSAIC WORKER 30 mg Bolus 03/21/2023 4:00 PM MOSAIC WORKER 50 mg Bolus 03/21/2023 3:58 PM MOSAIC WORKER 50 mg documented in this encounter Care Teams Business Director Relationship Specialty Start Date End Date Melani Franklin DO [address] [facility] [address] [place] [address] PCP - General Internal Medicine 10/05/20 documented as of this encounter
--- OUTSIDE RECORDS SUMMARY | 2024-02-21 16:23 | XMS_ITS | Encounter Summary ---
Author Organization [facility] Healthcare Address [address] [place] [address] Care Team Providers Care Concrete Pouring Supervisor Name Role Phone Melani Franklin Linda Primary Care Provider [phone] Reason for Visit * Auth/Cert (Routine) Specialty Diagnoses / Procedures Referred By Tyrone t Referred To Contact Diagnoses Thumb pain, left Thumb pain, left [M79.645] Procedures HI ARTHRP INTERPOS INTERCARPAL/METACARPAL JOINTS ARTHROPLASTY CARPOMETACARPAL INTERPOSITIONAL WITH RECONSTRUCTION LIGAMENT - REVISION THUMB Referral ID Status Reason Start Date Expiration Date Visits Re quested Visits Authorized [id number] 1 1 Encounter Details Date Type Department Care Team (Latest Contact Info) Description 03/21/2023 11:29 AM CENTRAL OFFICE SUPERVISOR - 03/21/2023 6:23 PM CENTRAL OFFICE SUPERVISOR Hospital Encounter [facility] [address] [place] [address] Anurag Franklin MD [address] [facility] [address] [place] [address] Thumb pain, left (Primary Dx); Arthritis of carpometacarpal (CMC) joint [...] on file Legal Sex Female 12:36 PM CENTRAL OFFICE SUPERVISOR Gender Identity Female 12/10/2020 10:46 AM CDT Sexual Orientation Not on file documented as of this encounter Last Filed Vital Signs Vital Sign Reading Time Taken Comments Blood Pressure 123/73 03/21/2023 5:50 PM CENTRAL OFFICE SUPERVISOR Pulse 81 03/21/2023 5:50 PM CENTRAL OFFICE SUPERVISOR Temperature 36.7 ??C (98.1 ??F) 03/21/2023 5:25 PM CS T Respiratory Rate 21 03/21/2023 5:50 PM CENTRAL OFFICE SUPERVISOR Oxygen Saturation 98% 03/21/2023 5:50 PM CENTRAL OFFICE SUPERVISOR Inhaled Oxygen Concentration - - Weight 62.6 kg (138 lb) 03/21/2023 12:15 PM CENTRAL OFFICE SUPERVISOR Height 157.5 cm (5' 2 ) 03/21/2023 12:15 PM CENTRAL OFFICE SUPERVISOR Body Mass Index 25.24 03/21/2023 12:15 PM CENTRAL OFFICE SUPERVISOR documented in this encounter Discharge Instructions * Discharge Instructions* Adilene Navas RN - 03/06/2023 6:27 PM CENTRAL OFFICE SUPERVISOR POSTOPERATIVE INSTRUCTIONS - Dr. Franklin Follow-up Appointments Your first postoperative visit with Dr. Franklin is listed on the first page of your discharge instructions. Your [facility] has been [facility] [place] as Dr. Franklin is out of the office the following week. Dr. Franklin may send you directly to the [facility] [place] after your first postoperative visit in his [...] sent to the outpatient pharmacy at the [place] for [facility]. Do not take pain medication or anti-inflammatories [...] 8am-4:30pm) Dr. Franklin's Nurse: KATHERYN NAVAS phone: [phone] After hours/weekend (Emergencies Only; no medication refills) [facility] Medical Exchange: [phone] or toll-free Perioperative Narcotic Considerations The Orthopedic hand surgeons of [facility] manage perioperative pain as wellas the pain after an acute injury. Our surgeons do not manage chronic pain (pain three months afterthe injury/surgery), and will refer patients seeking longer term care for their painful condition to a pain management service or their primary physician as those physicians typically establish exterminator treatment relationships with patients. Following elective hand and upper extremity surgery, a prescription for an opioid-based medication will likely be given to the patient. ???Minor??? procedures such as carpal tunnel release, trigger finger release and ganglion excision will receive 8-20 tablets of Tylenol with Codeine, Tramadol, or Stacy. Your surgeon will decide which is the most appropriate. Most other procedures will be [id number] tablets. Procedures that will need aggressive and [...] be called in to your pharmacy if ???ebgg-bov-yqzecbe??? anti- inflammatory pain medication do not decrease the pain even when taken on a regular basis. These can be called in during the hours 9am to 4pm, during the workweek. ???Alternative??? treatments such as acupuncture, meditation and biofeedback can all be used to decrease post-operative pain. The Orthopedic hand surgeons of [facility] want you to be as comfortable [...] interpretation of pain. The ???opioid epidemic??? in [place] is very real, and we as physicians [...] your surgeon or his/her nurse or MA. RAL OFFICE SUPERVISOR RAL OFFICE SUPERVISOR documented in this encounter Medications at Time [...] mouth every morning Panax ginseng root (Ginseng Frisian) 518 mg capsule Take by mouth 2 [...] Anurag Franklin MD at 03/21/2023 2:44 PM CENTRAL OFFICE SUPERVISOR RAL OFFICE SUPERVISOR RAL OFFICE SUPERVISOR Source Note - Julianne Mistry NP - 03/14/2023 3:56 PM CENTRAL OFFICE SUPERVISOR Images from the original note were not included. [facility] Planning Preoperative Evaluation Record Evaluation type/location: TPAP from [facility] Planned procedure site: [facility] OR (Pod 4) Date: 03/14/23 NOTE: [...] BP at home) Pertinent negatives: CAD ; DC ; CABG ; valvular heart disease; atrial [...] provided by telephone and electronically sent via [employer]. Patient verbalized understanding of instructions. Blood bank [...] COLONOSCOPY performed by Barrington Bueno MD at [facility] TRAPEZIUM RESECTION Left 12/08/2020 [...] 1 mg tablet 03/07/2023 -- -- Provider, MD Chayito buPROPion XL (WELLBUTRIN XL) 150 mg 24 hr tablet 03/07/2023 10/12/21 -- Provider, MD Chayito cetirizine (ZyrTEC) 10 mg tablet 03/07/2023 -- -- Provider, MD Chayito escitalopram (LEXAPRO) 20 mg tablet 03/07/2023 09/08/20 -- Provider, HistoricalMD glucosamine/chondr evans A sod (OSTEO BI-FLEX ORAL) 03/07/2023 -- -- Provider, MD Chayito herbal drugs tablet 03/06/2023 -- -- Provider, MD Chayito lisinopril-hydroCHLOROthiazide (ZESTORETIC) 10-12.5 mg per tablet 03/07/2023 10/13/21 -- Provider, HistoricalMD montelukast (SINGULAIR) 10 mg tablet 03/07/2023 -- -- Provider, MD Chayito multivit-minerals/folic acid (CENTRUM ADULT 50 PLUS ORAL) 03/07/2023 -- -- ProviderChayito MD naproxen (NAPROSYN) 500 mg tablet -- 08/22/20 -- Provider, MD Chayito Notes: None in over a month Panax ginseng root (Ginseng Frisian) 518 mg capsule 03/07/2023 -- -- Provider, [...] 500 mg tablet Panax ginseng root (Ginseng Frisian) 518 mg capsule progesterone (PROMETRIUM) 200 mg [...] last 30 days. Cody index score: 100 RAL OFFICE SUPERVISOR documented in this encounter Miscellaneous Notes * Op Note - Anurag Franklin MD - 03/21/2023 4:11 PM CST Date of Surgery: 03/21/2023 Pre-operative Diagnosis: Failed arthroplasty left thumb base Post-operative diagnosis: Same Procedure: Removal internal brace implant Flexor carpi radialis and abductor pollicis longus tendon transfer to thumb base Attending Surgeon: Anurag Franklin MD, M.Sc. [facility](C) Resident: 1. Mimi Pineda MD Nursery Laborer: Maria Del Carmen Pedro Nursery Laborer Relief: Debbie Mckeon RN Scrub Relief: Blaine [...] Implant Name Type Inv. Item Serial No. Tissue Packer Lot No. LRB No. Used Action DEPUY MITEK Quickanchor Plus Ethibond 2-0 V-5 Mini Amity Suture [id number] - [id number] DEPUY MITEK Quickanchor Plus Ethibond 2-0 V-5 Mini Amity Suture [id number] Depuy Mitek [id number] Left 2 Implanted Counts: All needle, sponge, and instrument counts were correct at the end of the case. Condition: The patient was transferred to the PACU in good condition. Attending participation: I was present and scrubbed for all crtical portions of the case including internal brace implant excision and both tendon transfers for pentecostal of stability to the thumb base. I was immediately available for all non critical components of the case. Post-operative plan Cast after suture removal in two weeks. Cast will likely be on for 3-4 weeks. RAL OFFICE SUPERVISOR * Brief Op Note - Mimi Pineda MD - 03/21/2023 4:11 PM CST Operative Progress Note Surgical Team: Surgeon(s) and Role: * Anurag Franklin MD - Primary * Mimi Pineda MD - Resident - Assisting Anesthesiologist: Michelle Tompkins MD RESTAURANT GENERAL MANAGER: Rosalinda Overton CRNA Nursery Laborer: Maria Del Carmen Pedro Nursery Laborer Relief: Debbie Mckeon RN Scrub Relief: Blaine [...] Implant Name Type Inv. Item Serial No. Tissue Packer Lot No. LRB No. Used Action DEPUY MITEK Quickanchor Plus Ethibond 2-0 V-5 Mini Amity Suture [id number] - [id number] DEPUY MITEK Quickanchor Plus Ethibond 2-0 V-5 Mini Amity Suture [id number] Depuy Mitek [id number] Left 2 Implanted Blood/Blood Products Transfused: 0 mls Complications: None Condition on Discharge from the operating room was stable Mimi Pineda MD Date: 03/21/2023 Time: 5:21 PM TEACHING ATTESTATION : I was present and directly participated in the entire procedure (including opening and closing). Cosigned by Anurag Franklin MD at 03/22/2023 8:28 AM CENTRAL OFFICE SUPERVISOR RAL OFFICE SUPERVISOR RAL OFFICE SUPERVISOR * Pre-Procedure Instructions - Julianne Mistry NP - 03/14/2023 3:47 PM CST [facility] CPAP Clinic Location: [facility] The night before your surgery: * Do [...] prior to surgery Panax ginseng root (Ginseng Frisian) 518 mg capsule Stop taking 1 week [...] with COVID-19. You test positive for COVID-19. RAL OFFICE SUPERVISOR * Perioperative Nursing Note - Ashley Fenton RN - 03/07/2023 1:08 PM CENTRAL OFFICE SUPERVISOR [facility]operative [facility] Planning Perioperative Nursing Note Telephone Preoperative Evaluation ([facility]) - TELEPHONE ONLY, NO PHYSICAL EXAM Date: [...] headaches (Migraine headace) Panax ginseng root (Ginseng Frisian) 518 mg capsule Take by mouth 2 [...] mouth nightly Implants Type Not Specified Ar[employer]rex [employer] Ar-8978-Cp Internalbrace Kit Hand Wrist Set Implant Ligament Augmentation - [id number] - Implanted (Left) Thumb Inventory item: AR[employer] Internalbrace Kit Hand Wrist Set Implant Ligament Augmentation AR-8978-CP Model/Cat number: AR-8978-CP Tissue Packer: Ar[employer]rex [employer] Lot number: [id number] Device identifier: [id number] Device identifier type: GS1 As of 12/08/2020 [...] Support Systems: Spouse/significant other Assistance Needed: Former [employer] employee/ [place]/ Dye Room Helper and helper Patient expects to be discharged to:: Private residence EQUITY ANALYST NO ADDITIONAL COMMENTS/ FOLLOW UP RAL OFFICE SUPERVISOR * Pre-Procedure Instructions - Ashley Fenton RN - 03/07/2023 1:03 PM CENTRAL OFFICE SUPERVISOR [facility] ([facility]) [...] remove nail coverings, artificial nails and nail ecuadorean prior to the day of surgery. You should leave your valuables and any jewelry at home. No metal or piercings are allowed in the operating room. You should bring your insurance card, a photo ID (example: Dye Room Helper's License) and a method of payment for [...] Remove nail coverings, artificial nails and nail ecuadorean. The Morning of Surgery: Take a shower [...] questions, please call the CPAP Staff at [phone], Sunday-Sunday 8am-4:30pm. All patients should read the below section: COVID 19 Updates & Visitor Policy: Please access [email or web address] for the most updated information. Information on [facility] & the Orthopedic Center: Please view [email or web address] (Patient & Visitor Information) for additional details regarding Advanced Directive forms, AWARE, directions, parking information, lodging, Internet access, dining and more. I For MyChart information, to activate account or password recovery, please go to [email or web address] or call [phone] (toll-free: [phone]), Sun- Sunday 8am-5pm. Information for Suicide Prevention: National Suicide Prevention Lifeline (4-009- 165-UCXN (3547)) or call or text 517. Chat resources: [email or web address]. Surgery Times: For patients having surgery @ [facility] or [facility] ([facility]), if your surgeon's office has not notified you of your surgery time by NOON THE BUSINESS DAY BEFORE your surgery, please call [phone] and ask for your surgeon's office Dr. Anurag Franklin The [facility] for Preoperative [facility] & Planning ([facility]) does not provide arrival times for the day of surgery or provide the duration of surgery. This information is provided by your surgeon'soffice or by the center where you are having surgery. We appreciate your understanding. RAL OFFICE SUPERVISOR documented in this encounter Plan of Treatment Not on file documented as of this encounter Procedures Procedure Name Priority Date/Time Associated Diagnosis Comments ARTHROPLASTY CARPOMETACARPAL INTERPOSITIONAL WITH RECONSTRUCTION LIGAMENT - THUMB 03/21/2023 3:50 PM CENTRAL OFFICE SUPERVISOR Thumb pain, left Case Notes 03/16 @ 1220 Lineup set by Adilene via case message - 4th start CF Special Needs MINI MITEK ANCHORS documented in this encounter Visit Diagnoses Diagnosis Thumb pain, left- Primary Thumb pain, left Arthritis of carpometacarpal (CMC) joint of left thumb documented in this encounter Admitting Diagnoses Diagnosis Thumb pain, left documented in this encounter Administered Medications Inactive Administered Medications - up to 3 most recent administrations Medication Order MAR Action Action Date Dose Rate Site Lactated Ringer's (LR) infusion 30 mL/hr, intravenous, Continuous, Starting on Sun03/21/23 at 1245, Pre-Op New Bag 03/21/2023 4:55 PM CENTRAL OFFICE SUPERVISOR Rate/Dose Verify 03/21/2023 3:46 PM CENTRAL OFFICE SUPERVISOR 30 mL/h r New Bag 03/21/2023 12:26 PM CENTRAL OFFICE SUPERVISOR 30 mL/hr 30 mL/hr documented in this encounter Discontinued Medications Medication [...] after this encounter. Panax ginseng root (Ginseng Frisian) 518 mg capsule Take by mouth 2 [...] Recently Administered Medications Times are shown in CENTRAL OFFICE SUPERVISOR. Scheduled Medication Order 03/19/2023 03/20/2023 03/21/2023 ceFAZolin [...] gravity)1655 (New Bag - Provider: Rosalinda Overton CRNA)171 (Canceled Entry - Provider: Rosalinda Overton CRNA - Comment: Switch to gravity)171 (Canceled Entry - Provider: Rosalinda Overton CRNA)1713 [...] mL in sterile water (premix) 2,000 mg 1 03/21/2023 fentaNYL (SUBLIMAZE) preserv ative free injection 50 mcg 1 03/21/2023 hydrALAZINE (APRESOLINE) injection 5 mg 1 0 03/21/2023 HYDROmorphone (DILAUDID) injection 0.5 mg 1 03/21/2023 labetaloL (NORMODYNE,TRANDAT E) injection 5 mg 1 03/21/2023 Lactated Ringer's (LR) infusion 1 naloxone (NARCAN) 0.4 mg/mL injection 0.04-0.4 mg 1 03/21/2023 prochlorperazine (COMPAZINE) injection 10 mg 1 03/21/2023 sodium chloride 0.9% flush 0.5-20 mL 1 03/05 sodium chloride 0.9% irrigation 1 sterile water irrigation 1 03/21/2023 Discharge Count Last Ordered Date First Orde red Date DISCHARGE PATIENT 1 03/21/2023 documented in this encounter Care Teams Concrete Pouring Supervisor Relationship Specialty Start Date End Date Melani Franklin DO [address] [facility] [address] [place] [address] PCP - General Internal Medicine 10/05/20 documented as of this encounter
--- OUTSIDE RECORDS SUMMARY | 2024-02-21 16:24 | XMS_ITS | Encounter Summary ---
Author Organization [facility] Address [address] [place] [address] Phone Care Team Providers Care Payroll Officer Name Role Phone NoemiMelani DO Primary Care Provider [phone] Reason for Visit * Reason Comments OT Treatment * Consultation (Routine) - Closed Specialty Diagnoses / Procedures Referred By Contact Referred To Contact Occupational Therapy Diagnoses Arthritis of carpometacarpal (CMC) joint of left thumb Anurag Franklin MD Phone: tel:[phone] fax:[phone] [facility] (All Locations) Referral ID Status Reason Start Date Expiration Date V isits Requested Visits Authorized [id number] Closed Specialty Services Required 01/25/2021 02/24/2022 24 24 Encounter Details Date Type Department Care Team (Late st Contact Info) Description 02/14/2021 4:00 PM BURNING PLANT OPERATOR Therapy [facility] [address] [facility] 1st Floor [address] [place] [id number] [place] [address] [place] [address] [place] [address] Arthritis of carpometacarpal (CMC) joint of left [...] on file Legal Sex Female 12:36 PM BURNING PLANT OPERATOR Gender Identity Female 12/10/2020 10:46 AM CDT Sexual Orientation Not on file documented as of this encounter Progress Notes * Khalida Carey, OT - 02/14/2021 4:00 PM CST [facility] Occupational Therapy Treatment Note Jody Mason 1970 MD's order on 01/25/21 Diagnosis: L Thumb CMC Joint Arthritis Surgery: Trapezium excision with internal brace placement Date of onset: Date of surgery: 12/08/20 ?? Frequency/Duration: 1 x week for 6 weeks ?? Next MD Visit: 6 weeks ?? OT/PT Evaluate and Treat: A/PROM thumb ?? Strengthening of thenars, but no pinch strengthening for another 4-6 weeks ?? Orthosis Specifications: Discontinue hand based thumb spica but may use a dorsal blocking splint for MP joint if needed?? 11 weeks post op Subjective:Patient voices that she fell down the stairs and put her left hand down to brace her fall. She fell 3x since her last visit. She still has trouble with washing big pots. [] Mental health status discussed Details: Pain:2/10 pre session at base of her thumb. Objective: Clinical Exam: Active Thumb Range of Motion ?? Right Left MP extension/ flexion 0/61 MP extension/ flexion +8/32 IP extension/flexion +/66 ) IP extension/flexion /60 Palmar abduction 55 Palmar abduction 41 Radial abduction 50 Radial abduction 41 Opposition +10 Kapandji Opposition To the SF MP 1 Other: ?? Other: ? EDEMA ?? Thumb Right Left ?? P1 IP P2 ?? P1 IP P2 Thumb 6.2 6.0 5.5 Thumb 6.7 6.1 5.3 Left improvement rn: 40 Popping (painless) noted during session at base of thumb CMC during scar massage and active motions Treatment provided: -MHP to left hand/thumb for tissue extensibility -Scar massage and soft tissue massage to adductor pollicis with popping noted. -PROM: gentle RAB, PAB, and MP flexion and composite flexion with CMC supported -Functional activities:health ball manipulation, -Biceps and triceps strengthening, and shoulder scaption with red theraband -Yellow and red therabar: S/P, wringing out motions to simulate wringing out a towel both directions. 20 reps -Yellow putty: fisting, dowel isometric hold and push into putty -Alphabet spelling with dowel and child's ball and weighed ball -Advanced HEP: scar massage, yellow putty (see scanned handout) for composite flexion, push into putty with dowel and pulling into 4 directions, red band for shoulder scaption, triceps press and elbow curls. Assessment: Jody has no issues with today's session. I noticed some popping in base of her thumb with active motions and scar massage. Plan: Continue 1x/week for gentle strengthening and monitor of popping. Goals: ?? Goal Status / Date Updated Due by: STG1 Independent with orthosis application, schedule, and care. New 12/15/2020 MET STG2 Independent with gentle AROM thumb HEP. New 12/15/2020 MET STG3 Verbalizes understanding of importance of avoiding MP hyperextension. New 12/15/2020 MET ? LTG1 Able to oppose thumb to 5th MCP head for in hand manipulation of small objects such as coins and pills. MET at end of session ?? LTG2 Patient will verbalize 2 joint protection techniques to decrease force to thumb joints. MET 12/30/2020 ?? LTG3 ??Patient will be able to wash heavier pots and lopez without pain. NEW 02/14/21 ??03/08/21 Start time 16:05 End Time:17:55 Khalida Carey OT/CHT ING PLANT OPERATOR documented in this encounter Plan of Treatment Not on file documented as of this encounter Visit Diagnoses Diagnosis Arthritis of carpometacarpal (CMC) joint of left thumb- Primary documented in this encounter Care Teams Payroll Officer Relationship Specialty Start Date End Date Melani Franklin DO [address] [facility] [address] [place] [address] PCP - General Internal Medicine 10/05/20 documented as of this encounter
--- OUTSIDE RECORDS SUMMARY | 2024-02-21 16:24 | XMS_ITS | Encounter Summary ---
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 [address] [place], [place] [id number] Heriberto Gurrola MD [address] [facility] [place] [address] Kristina Patel NP [address] [facility] [address] [place] [address] Anesthesia Record Procedure Summary Procedure Name Responsible Anesthesiologist Anesthesia Start Time Anesthesia Stop Time TRAPEZIECTOMY - INTERNAL BRACE (Left: Thumb) Heriberto Gurrola MD 12/08/20 1056 12/08/20 1204 Events Date Time Event Comment 12/08/2020 0850 In Preop 1005 1007 Face Time 1018 Start Supplemental O2 1019 Time out - Regional 1020 An Block Induction The patie nt was reevaluated immediately before moderate or deep sedation and before anesthesia induction. 1025 Block Placed 1056 An Start 1101 In Room 1102 An Start Data 1105 An Induction The patient was reevaluated immediately before moderate or deep sedation use and before anesthesia induction. 1107 An LMA 1123 Quick Note Tourniquet up, 220mmHg 1125 Proc Start 1126 Incision Start 1200 An Extubation 1201 Proc Fin 1204 An Stop 1204 an stop data 1205 Out of Room 1210 Handoff to RN I completed my handoff [...] Patient disposition at the time of handoff: PACU 1215 Face Time 1225 Time out - Regional 1230 Block Placed Meds Name Total midazolam PF 3 mg lidocaine (cardiac) syringe 2 % 70 mg propofol 200 mg fentaNYL 150 mcg phenylephrine 100 mcg/mL 400 mcg ondansetron PF (ZOFRAN) 2 mg/mL injectio n 4 mg bupivacaine 0.5 % PF 40 mL ceFAZolin 2,000 mg dexamethasone 4 mg/ml 4 mg Lactated Ringer's (LR) infusion 1,000 mL * Agents Name O2% N2O O2 Air Sevoflurane Inspired Sevoflurane * Blood No blood administrations on file. Lines, Drains, and Airways Type Details Placement Removal Peripheral IV Placement Date: 12/08/20; Placement Time: 1019; Catheter Size: 20 G; Orientation: Posterior, Right; Location: Hand; Removal Date: 12/08/20; Removal Time: 1352 12/08/20 1019 by Bela Perry RN 12/08/20 1352 by Stephanie Barcenas RN Supraglottic Airway Placement Date: 12/08/20; Placement Time: 1105 (created via procedure documentation); Mask Ventilation: 1; Size: 4; Insertion Attempts: 1; Removal Date: 12/08/20; Removal Time: 1200 12/08/20 1105 by Lucio Wolfe CRNA 12/08/20 1200 by Lucio Wolfe CRNA RETIRED Surgical Site 12/08/20; 1130; Left; Arm; 02/05/24 (Retired LDA, Removed/Completed by [email or web address] with LDA Utility); 1213 (Retired LDA, Removed/Completed by [email or web address] with LDA Utility) 12/08/20 1130 by Rahel [...] on file 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 Peripheral Block Patient location during procedure: PACU Reason for block: post-op pain management per surgeon request Ultrasound image in chart or stored: yes Block type: single shot Laterality: left Block type: radial nerve block - at elbow Staff: Supervising provider: Jovanny Samayoa MD Placed by: Resident: Chris Sheppard MD Procedure prep: Preprocedure checklist: patient identified, procedure contraindications assessed, site marked, procedure consent, surgical consent, IV checked, risks, benefits and alternatives discussed, monitors and equipment checked and timeout performed Patient position: sitting Procedure performed while patient: sedate with meaningful contact Monitoring: ECG, oximetry and blood pressure Supplemental O2: nasal cannula Prep solution: chlorhexidine/alcohol PPE: provider hat/mask, sterile gloves and sterile probe cover and gel Peripheral nerve block: Technique: ultrasound guided Needle gauge: 22 G Injection assessment: injection made incrementally with constant monitoring, local visualized surrounding nerve on ultrasound, negative aspiration for heme, no paresthesias noted, normal resistance to injection and see flowsheet for medication details Assessment: Block success: full evaluation pending Events: patient tolerated procedure well with no complications * Anesthesia Postprocedure Evaluation - Heriberto Gurrola MD - 12/08/2020 1:32 PM CDT Patient: Jody Mason Procedure Summary Date: 12/08/20 Room / Location: [facility] OR POD 4 ROOM G / [facility] OR POD 4 Anesthesia Start: 1056 Anesthesia Stop: 1204 Procedure: TRAPEZIECTOMY - INTERNAL BRACE (Left Thumb) Diagnosis: Arthritis of carpometacarpal (CMC) joint of left thumb (Arthritis of carpometacarpal (CMC) joint of left thumb [M18.12]) Surgeons: Anurag Franklin MD Responsible Provider: Heriberto Gurrola MD Anesthesia Type: general, PNB - single shot ASA Status: 2 Anesthesia Type: general, PNB - single shot Last vitals BP 98/58 Pulse 79 Temp 36.5 ??C (97.7 ??F) (Temporal) Resp 12 SpO2 98% Anesthesia Post Evaluation Patient location during evaluation: PACU Patient participation: complete - patient participated Level of consciousness: fully awake Pain score: 0 Pain management: adequate Airway patency: adequate Evidence of recall: no Cardiovascular status: acceptable and hemodynamically stable Respiratory status: acceptable and room air Hydration status: euvolemic Pt is: normothermic Nausea/Vomiting status: none Comments: Rescue regional block in PACU with significant improvement in pain. No complications documented. * Anesthesia Procedure Notes - Lucio Wolfe CRNA - 12/08/2020 11:28 AM CDTAssociated Order(s): Airway Airway Patient location: OR Urgency: elective Date/time: 12/08/2020 11:05 AM Indications for airway management: anesthesia Difficult airway: no Staff: Supervising provider: Heriberto Gurrola MD Placed by: Other staff: Xiomara Campo RN Emergent airway documentation: Risks and benefits discussed: no Consent obtained: no Consent given by: patient Airway prep: Preoxygenated: yes Patient position: sniffing MILS maintained throughout: yes Mask difficulty assessment: 1 - vent by mask Spontaneous ventilation during airway: absent Sedation level during airway: GA Final airway details: Final airway type: supraglottic airway Final supraglottic airway: classic SGA size: 4 Number of attempts: 1 Ventilation between attempts: BVM * Anesthesia Procedure Notes - Chris Sheppard MD - 12/08/2020 10:56 AM CDTAssociated Order(s): Peripheral Block Images from the original note were not included. Peripheral Block Patient location during procedure: pre-op holding Reason for block: post-op pain management per surgeon request Ultrasound image in chart or stored: yes Laterality: left Block type: brachial plexus - axillary Staff: Supervising provider: Jovanny Samayoa MD Placed by: Resident: Chris Sheppard MD Procedure prep: Preprocedure checklist: patient identified, procedure contraindications assessed, site marked, procedure consent, surgical consent, IV checked, risks, benefits and alternatives discussed, monitors and equipment checked and timeout performed Patient position: supine Procedure performed while patient: sedate with meaningful contact Monitoring: ECG, oximetry and blood pressure Supplemental O2: nasal cannula Prep solution: chlorhexidine/alcohol PPE: provider hat/mask, sterile probe cover and gel and sterile gloves Peripheral nerve block: Technique: ultrasound guided Needle gauge: 22 G Injection assessment: injection made incrementally with constant monitoring, local visualized surrounding nerve on ultrasound, normal resistance to injection, no paresthesias noted, negative aspiration for heme and see flowsheet for medication details Assessment: Block success: full evaluation pending Events: patient tolerated procedure well with no complications Cosigned by Jovanny Samayoa MD at 12/08/2020 11:43 AM CDT * Anesthesia Preprocedure Evaluation - Heriberto Gurrola MD - 11/30/2020 4:02 PM CDT Images from the original note were not included. [facility] Preoperative Assessment and Planning Preoperative Evaluation Record Evaluation type/location: TPAP from [facility] Planned procedure site: [facility] OR (Pod 4) Date: 11/30/20 NOTE: This note represents a preoperative evaluation initiated via telephone interview. NO PHYSICALEXAM was performed at the time of initial assessment. A physical exam may be added to this note anddocumented below. Anesthesia Evaluation Jody Mason is a 50 y.o. female Procedure(s): TRAPEZIECTOMY - INTERNAL BRACE Pre-Op Diagnosis Codes: * Arthritis of carpometacarpal (CMC) joint of left thumb [M18.12] HISTORY HPI 50 year old female with history of HTN, HLD, Arthritis of carpometacarpal (CMC) joint of left thumb. She is scheduled for trapeziectomy- internal brace (left) with Dr. Franklin. Past Medical History Information obtained from: patient and chart. Neurological Pertinent negatives: neuromuscular disease; CVA/stroke and TIA Cardiovascular + Hypertension + Hyperlipidemia Pertinent negatives: CAD ; GA ; CABG ; valvular heart disease; atrial fibrillation; pacemaker/ICD; DVT/PE; negative for CHF; drug-eluting stent(s) and bare metal stent(s) Respiratory Pertinent negatives: COPD; asthma; sleep apnea (WES); pulmonary hypertension; no O2 use outside thehospital and non-smoker Hepatic / Heme Pertinent negatives: liver disease Renal / Pertinent negatives: renal disease and dialysis Musculoskeletal/Pain + Headaches - migraine headaches. Endocrine / Other Pertinent negatives: diabetes mellitus; thyroid disease; obesity (BMI >30); cancer history; rheumatological disease; transplanted organ and infectious disease Functional Capacity Functional capacity: 4-6 METs Comments: Patient would be able to walk up 2 flight of stairs at moderate pace without SOB or CP. Patient would be able to walk 3-4 city blocks at moderate pace without SOB or CP. Review of Systems Pertinent negatives: productive cough; SOB; recent cold/flu; fever; chest pain; orthopnea; PND; previous transfusion; bleeding problems and syncope PAT Summary and Plans Cardiac risk classification of planned procedure: low cardiac risk. Preoperative assessment status: complete. Additional comments: Jody Mason is a 50 y.o. female who is being evaluated prior to undergoing a low cardiac risk surgery. Revised Cardiac Risk Index factors are (none) for a total RCRI of 0 out of 6. Functional capacity is 4-6 METs. Obstructive sleep apnea (WES) screening status is STOP-BANG incomplete but suspected to be 0-2 suggesting low risk for EWS. Neck circumference pending.. This assessment was performed via telephone. Therefore the physical exam has been deferred to the day of surgery team. The patient was provided with preoperative instructions for their medications. The patient was instructed to shower/bathe the night prior and the morning of the planned procedure using an antibacterial soap. Patient instructions were provided electronically sent via [facility]. Patient verbalized understanding of preoperative plan. Blood bank needs for day of procedure: No type and screen needed Pending labs/tests include: POC Hcg Urine Patient's COVID19 status is: Unexposed. The patient currently has no concerning symptoms of COVID19. . Patient's COVID-19 vaccination status is Fully vaccinated. Vaccination status verified by the patient's provided COVID-19 Vaccination Record Card. . Plan for pre-procedure COVID19 testing: Telephone assessment performed. Request placed for pre-procedure COVID19 testing to be performed on 12/06/20. [facility] will place the order for testing. Result to be reviewed by surgeon's office. . TPAP Complete Preoperative evaluation performed by Kristina Patel NP on 11/30/20 at 4:12 PM . Patient Active Problem List Diagnosis ??? Benign hypertension ??? Insomnia ??? Migraine with aura and without status migrainosus, not intractable ??? Mild episode of recurrent major depressive disorder (HCC) ??? Postcholecystectomy diarrhea ??? Arthritis of carpometacarpal (CMC) joint of left thumb Past Medical History: Diagnosis Date ??? Arthritis ??? Asthma ??? Hypertension ??? Meningitis ??? Migraines ??? Motion sickness Past Surgical History: Procedure Laterality Date ??? AUGMENTATION MAMMAPLASTY Bilateral 2004 ??? CHOLECYSTECTOMY 2009 ??? OTHER SURGICAL HISTORY ? tummy tuck ??? OTHER SURGICAL HISTORY ? tip of tailbone surgery OB History No obstetric history on file. Allergies Allergen Reactions ??? Morphine Headache Med List Status: Nurse Complete Set By: Lesly Brown RN at 11/26/2020 4:51 PM Taking? Last Dose Start Date End Date Provider amitriptyline (ELAVIL) 25 mg tablet 11/26/2020 08/16/20 -- ProviderChayito MD cetirizine (ZyrTEC) 10 mg tablet 11/26/2020 -- -- Chayito Bejarano MD cholestyramine (QUESTRAN) 4 gram packet 11/25/2020 08/22/20 -- Chayito Bejarano MD escitalopram (LEXAPRO) 20 mg tablet 11/26/2020 09/08/20 -- ProviderChayito MD glucosamine/chondr evans A sod (OSTEO BI-FLEX ORAL) 11/26/2020 -- -- Chayito Bejarano MD lisinopriL (PRINIVIL,ZESTRIL) 10 mg tablet 11/26/2020 09/08/20 -- ProviderChayito MD montelukast (SINGULAIR) 10 mg tablet 11/25/2020 -- -- ProviderChayito MD naproxen (NAPROSYN) 500 mg tablet Past Month 08/22/20 -- Provider, MD Chayito Nortrel 1/35, 28, 1-35 mg-mcg per tablet 11/25/2020 08/16/20 -- Provider, MD Chayito SUMAtriptan (IMITREX) 100 mg tablet Past Month 10/26/20 -- ProviderChayito MD turmeric root extract 500 mg capsule 11/26/2020 -- -- Chayito Bejarano MD valACYclovir (VALTREX) 1 gram tablet More than a month 06/19/19 -- Provider, MD Chayito zolpidem (AMBIEN) 5 mg tablet 11/25/2020 10/26/20 -- ProviderChayito MD No current facility-administered medications for this encounter. Current Outpatient Medications: ??? amitriptyline (ELAVIL) 25 mg tablet ??? cetirizine (ZyrTEC) 10 mg tablet ??? cholestyramine (QUESTRAN) 4 gram packet ??? escitalopram (LEXAPRO) 20 mg tablet ??? glucosamine/chondr evans A sod (OSTEO BI-FLEX ORAL) ??? lisinopriL (PRINIVIL,ZESTRIL) 10 mg tablet ??? montelukast (SINGULAIR) 10 mg tablet ??? naproxen (NAPROSYN) 500 mg tablet ??? Nortrel 1/35, 28, 1-35 mg-mcg per tablet ??? SUMAtriptan (IMITREX) 100 mg tablet ??? turmeric root extract 500 mg capsule ??? zolpidem (AMBIEN) 5 mg tablet ??? valACYclovir (VALTREX) 1 gram tablet Social History Tobacco Use Smoking Status Former Smoker ??? Packs/day: 1.00 ??? Years: 13.00 ??? Pack years: 13.00 ??? Types: Cigarettes ??? Start date: 1992 ??? Quit date: 2006 ??? Years since quittin.7 Smokeless Tobacco Never Used Substance and Sexual Activity Alcohol Use Not on file Substance and Sexual Activity Drug Use Never Family History Problem Relation Age of Onset ??? Arthritis Mother ??? Heart disease Father ??? Hypertension Father ??? Alcohol abuse Brother ??? Mental illness Brother ??? Anesthesia problems Neg Hx There were no vitals filed for this visit. PT: No results found for requested labs within last 720 hours. INR: No results found for requested labs within last 720 hours. APTT: No results found for requested labs within last 720 hours. Hgb A1C: No results found for requested labs within last 720 hours. CBC RBC: No results found for requested labs within last 720 hours. RDW: No results found for requested labs within last 720 hours. MCHC: No results found for requested labs within last 720 hours. MCH: No results found for requested labs within last 720 hours. MCV: No results found for requested labs within last 720 hours. Hct: No results found for requested labs within last 720 hours. Hgb: No results found for requested labs within last 720 hours. WBC: No results found for requested labs within last 720 hours. MPV: No results found for requested labs within last 720 hours. Platelets: No results found for requested labs within last 720 hours. RDW CV: No results found for requested labs within last 720 hours. RDW Sd: No results found for requested labs within last 720 hours. BMP Glucose: No results found for requested labs within last 720 hours. Calcium: No results found for requested labs within last 720 hours. Sodium: No results found for requested labs within last 720 hours. Potassium: No results found for requested labs within last 720 hours. CO2: No results found for requested labs within last 720 hours. Chloride: No results found for requested labs within last 720 hours. BUN: No results found for requested labs within last 720 hours. Creatinine: No results found for requested labs within last 720 hours. Cody index score: 100 DOS Physical Exam Medical history, medications, and allergies reviewed. Attestation: With today's edits, I endorse the findings of the anesthesia pre-evaluation assessment dated: 11/30/2020. Airway Exam: Mallampati: II Cervical ROM: FROM TM distance: normal Jaw ROM: full Cardiovascular Exam: Rate: regular Rhythm: regular Pulmonary Exam: LCTA Dental Exam: Appears intact Current state: Patient's current state is cooperative and interactive. Anesthesia Plan ASA 2 My patient is approved for the Anesthesia Controlled Medication protocol when under care of a MAIL INSERTER Planned anesthesia: General and PNB - single shot Upper extremity: brachial - supraclavicular Induction: Induction: intravenous. Postoperative Plan: Postoperative administration opioids intended. No postoperative mechanical ventilation intended. Informed Consent: Anesthesia plan and risks discussed with patient. Plan and Consent Comments: General anesthesia and airway placement, including risks, were discussed with the patient. All questions answered. Consent and Attending signature: I and/or my designee have discussed the anesthesia plan, benefits, possible alternatives, parental presence at time of induction (if indicated), and clinically relevant risks that may include dental injury, unintentional awareness, and/or other complications. The patient and/or parent/legal guardian understand, and agree to proceed. All questions answered. documented in this encounter Plan of Treatment Not on file documented as of this encounter Procedures Procedure Name Priority Date/Time Associated Diagnosis Comments NJ AN PROCEDURE PLACEHOLDER Routine 12/08/2020 2:47 PM CDT NJ AN PROCEDURE PLACEHOLDER Routine 12/08/2020 11:05 AM CDT NJ AN ELECTIVE SUPRAGLOTTIC AIRWAY Routine 12/08/2020 11:05 AM CDT NJ AN PROCEDURE PLACEHOLDER Routine 12/08/2020 10:56 AM CDT documented in this encounter Results * NJ AN PROCEDURE PLACEHOLDER (12/08/2020 2:47 PM CDT) Narrative Jovanny Samayoa MD - 12/08/2020 2:47 PM CDT Jovanny Samayoa MD ? 12/10/2020 ??5:48 AM Peripheral Block Patient location during procedure: PACU Reason for block: post-op pain management per surgeon request Ultrasound image in chart or stored: yes Block type: single shot Laterality: left Block type: radial nerve block - at elbow Staff: Supervising provider: Jovanny Samayoa MD Placed by: Resident: Chris Sheppard MD Procedure prep: Preprocedure checklist: patient identified, procedure contraindications assessed, site marked, procedure consent, surgical consent, IV checked, risks, benefits and alternatives discussed, monitors and equipment checked and timeout performed Patient position: sitting Procedure performed while patient: sedate with meaningful contact Monitoring: ECG, oximetry and blood pressure Supplemental O2: nasal cannula Prep solution: chlorhexidine/alcohol PPE: provider hat/mask, sterile gloves and sterile probe cover and gel Peripheral nerve block: Technique: ultrasound guided Needle gauge: 22 G Injection assessment: injection made incrementally with constant monitoring, local visualized surrounding nerve on ultrasound, negative aspiration for heme, no paresthesias noted, normal resistance to injection and see flowsheet for medication details Assessment: Block success: full evaluation pending Events: patient tolerated procedure well with no complications Heriberto Gurrola MD ANESTHESIA ORDERABLES Edited Re sult - Final * NJ AN ELECTIVE SUPRAGLOTTIC AIRWAY, NJ AN PROCEDURE PLACEHOLDER (12/08/2020 11:05 AM CDT) Narrative Lucio Wolfe CRNA - 12/08/2020 11:05 AM CDT Lucio Wolfe CRNA ? 12/08/2020 11:29 AM Airway Patient location: OR Urgency: elective Date/time: 12/08/2020 11:05 AM Indications for airway management: anesthesia Difficult airway: no Staff: Supervising provider: Heriberto Gurrola MD Placed by: Other staff: Xiomara Campo RN Emergent airway documentation: Risks and benefits discussed: no Consent obtained: no Consent given by: patient Airway prep: Preoxygenated: yes Patient position: sniffing MILS maintained throughout: yes Mask difficulty assessment: 1 - vent by mask Spontaneous ventilation during airway: absent Sedation level during airway: GA Final airway details: Final airway type: supraglottic airway Final supraglottic airway: classic SGA size: 4 Number of attempts: 1 Ventilation between attempts: BVM Heriberto Gurrloa MD ANESTHESIA ORDERABLES Final Res ult * NJ AN PROCEDURE PLACEHOLDER (12/08/2020 10:56 AM CDT) Narrative Jovanny Samayoa MD - 12/08/2020 10:56 AM CDT Chris Sheppard MD ? 12/08/2020 10:57 AM Peripheral Block Patient location during procedure: pre-op holding Reason for block: post-op pain management per surgeon request Ultrasound image in chart or stored: yes Laterality: left Block type: brachial plexus - axillary Staff: Supervising provider: Jovanny Samayoa MD Placed by: Resident: Chris Sheppard MD Procedure prep: Preprocedure checklist: patient identified, procedure contraindications assessed, site marked, procedure consent, surgical consent, IV checked, risks, benefits and alternatives discussed, monitors and equipment checked and timeout performed Patient position: supine Procedure performed while patient: sedate with meaningful contact Monitoring: ECG, oximetry and blood pressure Supplemental O2: nasal cannula Prep solution: chlorhexidine/alcohol PPE: provider hat/mask, sterile probe cover and gel and sterile gloves Peripheral nerve block: Technique: ultrasound guided Needle gauge: 22 G Injection assessment: injection made incrementally with constant monitoring, local visualized surrounding nerve on ultrasound, normal resistance to injection, no paresthesias noted, negative aspiration for heme and see flowsheet for medication details Assessment: Block success: full evaluation pending Events: patient tolerated procedure well with no complications Chris Sheppard MD ANESTHESIA ORDERABLES Fin al Result documented in this encounter Visit Diagnoses Not on filedocumented in this encounter Administered Medications Inactive Administered Medications - up to 3 most recent administrations Medication Order MAR Action Action Date Dose Rate Site bupivacaine (MARCAINE) 0.5 % (5 mg/mL) preservative free injection other, As needed, Starting on Sun12/08/20 at 1025, Anesthesia Intra-op Given 12/08/2020 12:30 PM CDT 10 mL Given 12/08/2020 10:25 AM CDT 30 mL ceFAZolin (ANCEF) injection intravenous, Administer over 3 Minutes, As needed, Starting on Sun12/08/20 at 1109, Anesthesia Intra-op Given 12/08/2020 11:09 AM CDT 2,000 mg dexAMETHasone (DECADRON) 4 mg/mL injection intravenous, Administer over 2 Minutes, As needed, Starting on Sun12/08/20 at 1130, Anesthesia Intra-op Given 12/08/2020 11:30 AM CDT 4 mg fentaNYL (SUBLIMAZE) preservative free injection intravenous, As needed, Starting on Sun12/08/20 at 1020, Anesthesia Intra-op Given 12/08/2020 11:36 AM CDT 50 mcg Given 12/08/2020 11:21 AM CDT 50 mcg Given 12/08/2020 10:20 AM CDT 50 mcg Lactated Ringer's (LR) infusion 30 mL/hr, intravenous, Continuous, Starting on Sun12/08/20 at 0945, Pre-Op Restarted 12/08/2020 11:53 AM CDT Rate/Dose Verify 12/08/2020 10:56 AM CDT 30 mL/ hr New Bag 12/08/2020 9:31 AM CDT 30 mL/hr 30 mL/hr lidocaine (cardiac) (XYLOCAINE) preservative free injection intravenous, As needed, Starting on Sun12/08/20 at 1105, Anesthesia Intra-op, Indications: Ventricular ArrhythmiasIndications:Ventricular Arrhythmias Given 12/08/2020 11:05 AM CDT 70 mg midazolam (VERSED) 1 mg/mL preservative free injection intravenous, Administer over 2 Minutes, As needed, Starting on Sun12/08/20 at 1020, Anesthesia Intra-op Given 12/08/2020 10:56 AM CDT 2 mg Given 12/08/2020 10:20 AM CDT 1 mg ondansetron (ZOFRAN) injection intravenous, Administer over 2 Minutes, As needed, Starting on Sun12/08/20 at 1136, Anesthesia Intra-op Given 12/08/2020 11:36 AM CDT 4 mg phenylephrine (JONES-SYNEPHRINE) 1 mg/10 mL (100 mcg/mL) in sodium chloride 0.9% (premix) intravenous, As needed, Starting on Sun12/08/20 at 1119, Anesthesia Intra-op Given 12/08/2020 11:42 AM CDT 200 mc g Given 12/08/2020 11:19 AM CDT 200 mcg propofoL (DIPRIVAN) 10 mg/mL IV intravenous, As needed, Starting on Sun12/08/20 at 1105, Anesthesia Intra-op Given 12/08/2020 11:05 AM CDT 200 mg documented in this encounter Care Teams Metal Machine Setter Relationship Specialty Start Date End Date Melani Franklin DO [id number] [place] [address] PCP - General Internal Medicine 10/05/20 documented as of this encounter
--- OUTSIDE RECORDS SUMMARY | 2024-02-21 16:24 | XMS_ITS | Encounter Summary ---
Author Organization [facility] Address [address] [place] [address] Phone Care Team Providers Care [employer] Dispatcher Name Role Phone NoemiLinaa Linda MENARD Primary Care Provider [phone] Reason for Visit * Reason Comments OT Treatment * Consultation (Routine) - Closed Specialty Diagnoses / Procedures Referred By Contact Referred To Contact Occupational Therapy Diagnoses Arthritis of carpometacarpal (CMC) joint of left thumb Anurag Franklin MD Phone: tel:[phone] fax:[phone] [facility] (All Locations) Referral ID Status Reason Start Date Expiration Date V isits Requested Visits Authorized [id number] Closed Specialty Services Required 11/12/2020 12/12/2021 24 24 Encounter Details Date Type Department Care Team (Late st Contact Info) Description 01/19/2021 9:30 AM EXERCISE SCIENCE INSTRUCTOR Therapy [facility] Occupational Therapy [address] [facility] [address] [place] [id number] [place] [id number] [address] [place] [address] Arthritis of carpometacarpal (CMC) joint of left [...] when you are drinking? 1 or 2 09/24/202 1 Q3: How often do you have si x or more drinks on one occasion? Never 11/26/2020 Comments No Sex and Gender Information Value Date Recorded Sex Assigned at Not on file Legal Sex Female 12:36 PM EXERCISE SCIENCE INSTRUCTOR Gender Identity Female 12/10/2020 10:46 AM CDT Sexual Orientation Not on file documented as of this encounter Progress Notes * Khalida Carey, OT - 01/19/2021 9:30 AM CST [facility] Occupational Therapy Treatment Note Jody Mason 1970 MD's order on 12/13/20 Diagnosis: L Thumb CMC Joint Arthritis Surgery: Trapezium excision with internal brace placement Date of onset: Date of surgery: 12/08/20 ?? Frequency/Duration: 1 x week for 8 weeks ?? Next MD Visit: ?? OT/PT Evaluate and Treat: 1 week post op Orthosis Purpose: ??to protect thumb post joint reconstruction during healing and to support the joint AROM of thumb/wrist/digits Edema management ?? 2 weeks post op Add in scar massage post suture removal May need to remold orthosis due to swelling decreasing Continue all above ?? 4 weeks post op Initiate PROM of thumb if needed ?? 6 weeks post op Strengthening at 6 week post op pending pain level ?? Restrictions: See progress above for restrictions ?? Orthosis Specifications: -Hand-based thumb spica orthosis (HFO without joints) -May alternatively use forearm-based orthosis to help with wrist pain according to surgeon and therapist preference and patient's pain level 6 weeks post op Subjective:Patient voices that she got the spring load scissors and the pen. [] Mental health status discussed Details: Pain:0/10 today at rest; 3-6/10 with use such as pulling up her compression hose and donning a bra and with HEP. Objective: Clinical Exam: Active Thumb Range of Motion ?? Right Left MP extension/ flexion 0/61 MP extension/ flexion 0 with verbal cue not to go into hyperextension/30 IP extension/flexion +/66 ) IP extension/flexion /50 Palmar abduction 55 Palmar abduction 35 Radial abduction 50 Radial abduction 36 Opposition +10 Kapandji Opposition To the SF to P1 with difficulty Other: ?? Other: ? *Patient has a swan neck deformity and was verbally cued not to go into that deformity. EDEMA ?? Thumb Right Left ?? P1 IP P2 ?? P1 IP P2 Thumb 6.2 6.0 5.5 Thumb 6.6 6.1 5.25 Wrist crease: Deferred strength due to c/o pain in her pain. Treatment provided: -MHP to left hand/thumb for tissue extensibility -Scar massage and soft tissue massage to adductor pollicis -PROM: gentle RAB, PAB, and MP flexion and composite flexion -Thumb PAB, MP flexion, serial opposition and thumb slide actively -Isometric thumb good posture hold, FPB hold, first dorsal interossei, MP stabilization -Functional activities: pickle processor marbles, health ball manipulation, making a necklace -Yellow therabar: S/P, wringing out motions to simulate wringing out a towel. -Deferred taping to scar as it is improving. -Advanced HEP: scar massage, PROM: thumb MP and composite flexion, thumb stabilization, PAB, serialopposition and slide with hold at end range to SF MP Assessment: Graca is improving with noted improved thumb posture with less hyperextension at MP. Patient had no pain with using the therabar. Plan: Patient returns to Dr. Franklin next week. Goals: ?? Goal Status / Date Updated [...] to thumb joints. MET 12/30/2020 ?? LTG3 ?? New 12/15/2020 ?? Start time 09:30 End Time:10:20 Khalida Carey OT/ELIT CISE SCIENCE INSTRUCTOR documented in this encounter Plan of Treatment Not on file documented as of this encounter Visit Diagnoses Diagnosis Arthritis of carpometacarpal (CMC) joint of left thumb- Primary documented in this encounter Care Teams [employer] Dispatcher Relationship Specialty Start Date End Date Melani Franklin DO [address] [facility] [address] [place] [address] PCP - General Internal Medicine 10/05/20 documented as of this encounter
--- OUTSIDE RECORDS SUMMARY | 2024-02-21 16:24 | XMS_ITS | Encounter Summary ---
Author Organization [facility] Healthcare Address [address] [place] [address] Care Team Providers Care Felt Hat Inspector And Packer Name Role Phone Melani Franklin DO Primary Care Provider [phone] Encounter Details Date Type Department Care Team (Late st Contact Info) Description 12/08/2020 10:30 AM CDT - 12/08/2020 12:[address] [facility] Operating [facility] [address] [place] [id number] Anurag Franklin MD [facility] [address] [place] [address] TRAPEZIECTOMY - INTERNAL BRACE Surgery Details Date/Time Status Location OR Service Patient Class Case Cl ass Case Type Trauma Case? 12/08/2020 10:30 AM Posted [facility] CAM OR POD 4 G Orthopaedics Outpatient Elective Panel 1 Procedure LRB Anes Op Region Wound Class Comments TRAPEZIECTOMY - INTERNAL BRACE Left General Thumb Class I - Clean Surgeon Surgeon Role Service Panel Chantal Winn MD Resident - Assistin g Plastics 1 Anurag Franklin MD Primary Orthopaedics 1 Special Needs ARTHRE[employer] INTERNAL BRACE documented in this encounter Social History Tobacco [...] on file Legal Sex Female 12:36 PM MATCH UP PERSON Gender Identity Female 12/10/2020 10:46 AM CDT Sexual Orientation Not on file documented as of this encounter Last Filed Vital Signs Vital Sign Reading Time Taken Comments Blood Pressure 117/69 12/08/2020 12:30 PM CDT Pulse 86 12/08/2020 12:30 PM CDT Temperature 36.5 ??C (97.7 ??F) 12/08/2020 12:07 PM C DT Respiratory Rate 12 12/08/2020 12:30 PM CDT Oxygen Saturation 98% 12/08/2020 12:30 PM CDT Inhaled Oxygen Concentration - - Weight 69.9 kg (154 lb) 11/26/2020 4:36 PM CDT Height 157.5 cm (5' 2 ) 11/26/2020 4:36 PM CDT Body Mass Index 28.17 11/26/2020 4:36 PM CDT documented in this encounter Discharge Instructions * Discharge Instructions* Adilene Navas RN - 11/11/2020 9:10 AM CDT POSTOPERATIVE INSTRUCTIONS - Dr. Franklin Follow-up Appointments Your first postoperative visit with Dr. Franklin is listed on the first page of your discharge instructions. Your post operative [facility] is [facility] at [facility] [place] as Dr. Franklin is not available the following week. You will be scheduled to see [facility] [place] one week post operatively. Dr. Franklin may send you directly to the [facility] [place] after your first postoperative visit in his office. Please be aware that this may add an hour or two to your first postoperative visit. If you have been scheduled for a visit with therapy, it will be listed on the first page of your discharge instructions. Dressing and Wound Care ??? A large dressing has been placed on your arm to reduce motion and control swelling. Keep your dressing clean and dry. o Keep the dressing/splint on until your first postoperative office visit. ??? Wear a plastic bag over your dressing/splint whenever you take a shower or bath ??? Swelling is normal after surgery. Elevate your hand/arm so the surgical site is above your heart to decrease the swelling. Swelling is like water, it runs downhill. This is especially important for the first 72 hours after surgery. o The best way to elevate your hand/arm is with your fingers pointing towards the ceiling and your hand/arm above the level of the heart (see handout). o You can use pillows to help prop your hand/arm up when sitting or lying down. ??? If you are experiencing pain, be sure you are elevating your hand/arm as often as possible. ??? Apply an ice pack over your dressing/splint for 20 minutes of every hour for the first 3 days when you are awake. This can help to reduce swelling and inflammation. Be sure the ice pack is waterproof so it does not leak on the dressing/splint. A simple ice pack can be made by adding ten cubes and a small amount of water in a small zip-lock bag. Seal this small bag tightly. Place this small bag in a larger zip lock bag. Apply to the area in pain. ??? If the dressing feels too tight in spite of elevation, loosen the outer wrap but do not remove the entire dressing. ACTIVITIES: ??? Bend and straighten the parts of your hand/arm that are not included in your surgical dressing or splint. Do this at least 6 times a day, as this will help decrease swelling and speed up your recovery. This includes your fingers when exposed so that you make a full fist. POSTOPERATIVE CARE/CONCERNS: ??? You may experience some temporary numbness in your fingers. ??? You should have very little to no bleeding on your dressing. ??? Notify the office (see contact info at bottom of page) for any of the following: o Excessive pain not relieved by rest, elevation, and pain medications o Feeling that the dressing is too tight in spite of adequately elevating hand/arm o Active bleeding through the dressing o Drainage from the wound site or pin sites o Foul odor from the dressing/wound o Temperature greater that 101? F or chills o Blue or excessively cold fingertips o Numbness of the fingertips that does not improve in spite of adequately elevating hand/arm PAIN MEDICATION: A prescription for pain medication has been sent to the outpatient pharmacy at the [facility]. ??? Do not take pain medication or anti-inflammatories on an empty stomach. ??? It is illegal to drive while taking narcotic pain medication ??? Pain is a normal part of the recovery after surgery. The pain medication provided to you will help to decrease the discomfort but will not completely eliminate the pain. ??? Your pain should decrease over the first few days after surgery which will allow you to take less pain medicine, increase the time between doses of medication, or stop taking all pain medicine. ??? Please refer to the Perioperative Narcotic Considerations form below OFFICE CONTACT NUMBERS ??? During business hours (Mon-Fri 8am-4:30pm) o Dr. Franklin's Nurse: KATHERYN phone: [phone] ??? After hours/weekend (Emergencies Only; no medication refills) o [facility]: [phone] or toll-free Perioperative Narcotic Considerations The Orthopedic hand surgeons of [facility] manage perioperative pain as wellas the pain after an acute injury. Our surgeons do not manage chronic pain (pain three months afterthe injury/surgery), and will refer patients seeking longer term care for their painful condition to a pain management service or their primary physician as those physicians typically establish dedicated intermodal truck driver treatment relationships with patients. Following elective hand and upper extremity surgery, a prescription for an opioid-based medication will likely be given to the patient. ???Minor??? procedures such as carpal tunnel release, trigger finger release and ganglion excision will receive 10-20 tablets of Tylenol with Codeine, Tramadol, orNorco. Your surgeon will decide which is the most appropriate. Most other procedures will be receive 20-30 tablets. Procedures that will need aggressive and continuous post-operative hand therapy (and adequate acute pain control during this period) may need a greater number of pain tablets to last the during the therapy period. Your surgeon may discuss with you reasoning behind the number of tablets that will be prescribed. There are many things that a patient can do to manage their pain after surgery or after an acute injury: 1) Move the shoulder, elbow and all other joints that are not immobilized by the post-operative dressing as much as possible. 2) Elevate the operated hand and wrist so that swelling can be reduced. 3) Place ice and a few ounces of tap water in a small sealed plastic bag, and place it on the outside of the surgical dressing. Keep it there until the operated part under the ice bag starts to feel cold. This can reduce both pain and swelling. 4) Anti-inflammatory pain medication such as Advil, Aleve, generic Ibuprofen, generic Naproxen or generic Naprosyn can all be used in addition to the narcotics prescribed by your doctor. 5) Prescription anti-inflammatory pain medication such as Celebrex, Indocin or Toradol can be called in to your pharmacy if ???[id number]??? anti- inflammatory pain medication do not decrease the pain even when taken on a regular basis. These can be called in during the hours 9am to 4pm, during the workweek. 6) ???Alternative??? treatments such as acupuncture, meditation and biofeedback can all be used to decrease post-operative pain. The Orthopedic hand surgeons of [facility] want you to be as comfortable [...] interpretation of pain. The ???opioid epidemic??? in [place] is very real, and we as physicians [...] your surgeon or his/her nurse or MA. * Attachments The following attachments cannot be sent through Care Everywhere. * [facility] PATHWAY TO EXCELLENT CARE AFTER SURGERY documented in this encounter Medications at Time of Discharge ALPRAZolam (XANAX) 0.25 mg tabletIndications:In somnia,anxiety Take 1-2 tablets (0.25-0.5 mg total) by mouth nightly as needed for anxiety or sleep 12/03/2020 cetirizine (ZyrTEC) 10 mg tabletIndications:Al lergic Rhinitis Take 2 tablets (20 mg total) by mouth every morning escitalopram (LEXAPRO) 20 mg tabletIndications:An xiety with Depression Take 0.5 tablets (10 mg total) by mouth every morning 09/08/2020 glucosamine/chondr evans A sod (OSTEO BI-FLEX ORAL)Indications:Evita nt health Take 1 capsule by mouth every morning montelukast (SINGULAIR) 10 mg tabletIndications:Pe rennial Allergic Rhinitis,Seasonal Allergic Rhinitis Take 1 tablet (10 mg total) by mouth 2 (two) times a day turmeric root extract 500 mg capsuleIndications:A nti-inflammatory Take 3 capsules by mouth every morning valACYclovir (VALTREX) 1 gram tabletIndications:Pr ophylaxis, Medical,allergy face rash Take 2 tablets (2,000 mg total) by mouth 2 (two) times a day 06/19/2019 HYDROcodone-acetamin ophen (NORCO) 5-325 mg per tabletIndications:Pa in Take 1 tablet by mouth every 4 (four) hours as needed for pain for up to 10 days 30 tablet 12/08/2020 1 cholestyramine (QUESTRAN) 4 gram packetIndications:ta kes since cholecystectomy Take 1 packet by mouth nightly 08/22/2020 4 lisinopriL (PRINIVIL,ZESTRIL) 10 mg tabletIndications:hy pertension Take 1 tablet (10 mg total) by mouth every morning 09/08/2020 4 naproxen (NAPROSYN) 500 mg tabletIndications:Mi graines Take 1 tablet (500 mg total) by mouth as needed for headaches (Migraine headace) 08/22/2020 4 Nortrel 1/35, 28, 1-35 mg-mcg per tabletIndications:Pr egnancy Contraception Take 1 tablet by mouth nightly 08/16/2020 4 SUMAtriptan (IMITREX) 100 mg tabletIndications:Mi graine Take 1 tablet (100 mg total) by mouth as needed 10/26/2020 4 zolpidem (AMBIEN) 5 mg tabletIndications:Sl eep-Onset Insomnia Take 1 tablet (5 mg total) by mouth nightly 10/26/2020 4 documented as of this encounter Ordered Prescriptions Prescription Sig Dispense Quantity Refills Last Filled Start Date End Date HYDROcodone-acetam inophen (NORCO) 5-325 mg per tabletIndications: Pain Take 1 tablet by mouth every 4 (four) hours as needed for pain for up to 10 days 30 tablet 12/08/2020 12/18/2020 documented in this encounter Discharge Disposition Disposition Code Departure Means Destination Discharge to home or self care documented in this encounter H&P Notes * Chantal Lyman MD - 12/08/2020 9:13 AM CDT I have reviewed the H&P, examined the patient, and endorse the findings as written. Plan of Care : Based on the above findings, I consider Jody Mason to be an acceptable risk for : Procedure(s): TRAPEZIECTOMY - INTERNAL BRACE General: no acute distress Neck: supple Respiratory: nonlabored breathing Abdomen: soft Extremities: LEFT thumb TTP at CMC, digits wwp Neuro: A&Ox3 Psych: cooperative Cosigned by Anurag Franklin MD at 12/10/2020 2:35 PM CDT Source Note - Kristina Patel NP - 11/30/2020 4:02 PM CDT Images from the original note were not included. Center for Preoperative Assessment and Planning Preoperative Evaluation Record Evaluation type/location: TPAP from [facility] Planned procedure site: [facility] CAM OR (Pod 4) Date: [...] Hypertension + Hyperlipidemia Pertinent negatives: CAD ; [place] ; CABG ; valvular heart disease; atrial [...] to be 0-2 suggesting low risk for WES. Neck circumference pending.. This assessment was performed via telephone. Therefore the physical exam has been deferred to the day of surgery team. The patient was provided with preoperative instructions for their medications. The patient was instructed to shower/bathe the night prior and the morning of the planned procedure using an antibacterial soap. Patient instructions were provided electronically sent via [employer]. Patient verbalized understanding of preoperative plan. Blood [...] COVID19 testing to be performed on 12/06/20. [facility] will place the order for testing. Result [...] Med List Status: Nurse Complete Set By: Lsely Brown RN at 11/26/2020 4:51 PM Taking? Last Dose Start Date End Date Provider amitriptyline (ELAVIL) 25 mg tablet 11/26/2020 08/16/20 -- ProviderChayito MD cetirizine (ZyrTEC) 10 mg tablet 11/26/2020 -- -- Provider, MD Chayito cholestyramine (QUESTRAN) 4 gram packet 11/25/2020 08/22/20 -- Provider, MD Chayito escitalopram (LEXAPRO) 20 mg tablet 11/26/2020 09/08/20 -- Provider, MD Chayito glucosamine/chondr evans A sod (OSTEO BI-FLEX ORAL) 11/26/2020 -- -- Provider, HistoricalMD lisinopriL (PRINIVIL,ZESTRIL) 10 mg tablet 11/26/2020 09/08/20 -- Provider, MD Chayito montelukast (SINGULAIR) 10 mg tablet 11/25/2020 -- -- Provider, MD Chayito naproxen (NAPROSYN) 500 mg tablet Past Month 08/22/20 -- Provider, MD Chayito Nortrel 1/35, 28, 1-35 mg-mcg per tablet 11/25/2020 08/16/20 -- Provider, MD Chayito SUMAtriptan (IMITREX) 100 mg tablet Past Month 10/26/20 -- Provider, HistoricalMD turmeric root extract 500 mg capsule 11/26/2020 -- -- Provider, MD Chayito valACYclovir (VALTREX) 1 gram tablet More than a month 06/19/19 -- Provider, MD Chayito zolpidem (AMBIEN) 5 mg tablet 11/25/2020 10/26/20 -- Provider, MD Chayito No current facility-administered medications for this encounter. [...] last 720 hours. Cody index score: 100 documented in this encounter Miscellaneous Notes * Op Note - Anurag Franklin MD - 12/08/2020 11:26 AM CDT Date of Surgery: 12/08/2020 Pre-operative Diagnosis: Left CMC arthritis Post-operative diagnosis: Same Procedure(s): TRAPEZIECTOMY - INTERNAL BRACE (Left) Attending Surgeon: Anurag Franklin MD, M.Sc. [facility](C) Resident: 1. Cahntal Lyman MD Missile Mechanic: Rahel Tatum RN Missile Mechanic Relief: Luli Milian RN Scrub Relief: Lauri Bhardwaj Ea, RN Scrub: Luli Milian RN Anesthesia: General Blood loss: No blood loss documented. Tourniquet Time: Total Tourniquet Time Documented: Arm - Upper (Left) - 35 minutes Total: Arm - Upper (Left) - 35 minutes Findings: Osteoarthritis CMC joint Specimen: No specimens collected during this procedure. Complications: None Indications: Pain not responsive to non-operative management The risks discussed included bleeding, infection, [...] exposethe capsule over the proximal thumb metacarpal the trapezium and the trapezium and the scaphoid trap ezial joint. In using scalpel and unipolar hemo cautery, the trapezium was exposed. It was then excised piecemeal to expose the FCR tendon. The base of the index metacarpal was then exposed on its radial aspect. The internal brace device was then placed 1st into the base of the thumb metacarpal so that it extended radialward in the groove at the base of the thumb metacarpal. After exposure and confirmation of the location of placement at the base of the index metacarpal, the hole for the 2nd component of the internal brace was drilled and then, with the thumb in adduction and traction, the suture was tensioned and the device implanted into the base of the metacarpal. Appropriate tension was achieved and confirmed. Wound was irrigated copiously with sterile saline and Ancef. Capsular repair was done. Skid was closed distally over the arthroplasty space. A a sterile compressive non constrictive plaster dressing was then applied. Patient was then awakened uneventfully by the anesthesia provider. Drains: Active and Removed None Implants: Implant Name Type Inv. Item Serial No. Cable Inspector Lot No. LRB No. Used Action [employer] AR-8978-CP INTERNALBRACE KIT HAND WRIST SET IMPLANT LIGAMENT AUGMENTATION - [id number] [employer] AR-8978-CP Internalbrace Kit Hand Wrist Set Implant Ligament Augmentation [employer] [id number] Left 1 Implanted Counts: All needle, sponge, and instrument counts were correct at the end of the case. Condition: The patient was transferred to the PACU in good condition. Attending participation: I was present and scrubbed for all crtical portions of the case including trapezium excision and the implantation of the internal brace device for sikhism of stability tothe thumb base. I was immediately available for all non critical components of the case. Post-operative plan Dressing down and splint on return to office * Brief Op Note - Chantal Lyman MD - 12/08/2020 11:26 AM CDT Operative Progress Note Surgical Team: Surgeon(s) and Role: * Anurag Franklin MD - Primary * Chantal Lyman MD - Resident - Assisting Anesthesiologist: Heriberto Gurrola MD BLACK TOPPER: Lucio Wolfe CRNA Student Nurse Bag Machine Set Up Operator: Xiomara Campo RN Missile Mechanic: Rahel Tatum RN Missile Mechanic Relief: Luli Milian RN Scrub Relief: Lauri Bhardwaj Ea, RN Scrub: Luli Milian RN DATE OF SURGERY : 12/08/2020 Preoperative Diagnosis: Pre-op Diagnosis * Arthritis of carpometacarpal (CMC) joint of left thumb [M18.12] Postoperative Diagnosis: Post-op Diagnosis * Arthritis of carpometacarpal (CMC) joint of left thumb [M18.12] Procedure(s): Procedure(s) (LRB): TRAPEZIECTOMY - INTERNAL BRACE (Left) Operative Findings: LEFT trapeziectomy with internal brace Estimated Blood Loss: Miniomal Intraoperative Fluids: 1000 mls Specimens: No specimen collected in procedure Implants: Implant Name Type Inv. Item Serial No. Cable Inspector Lot No. LRB No. Used Action [employer] AR-8978-CP INTERNALBRACE KIT HAND WRIST SET IMPLANT LIGAMENT AUGMENTATION - [id number] [employer] AR-8978-CP Internalbrace Kit Hand Wrist Set Implant Ligament Augmentation [employer] [id number] Left 1 Implanted Blood/Blood Products Transfused: 0 mls Complications: None Condition on Discharge from the operating room was stable Chantal Lyman MD Date: 12/08/2020 Time: 12:03 PM TEACHING ATTESTATION : I was present and directly participated in the entire procedure (including opening and closing). Cosigned by Anurag Franklin MD at 12/10/2020 2:38 PM CDT * Pre-Procedure Instructions - Kristina Patel NP - 11/30/2020 3:59 PM CDT Center for Preoperative Assessment and Planning CPAP Clinic Location: [facility] The night before your surgery: * Do not eat or drink anything after midnight. This includes candy, mint, gums, chewable antacids (TUMS, Rolaids) and cough drops * Do not smoke after midnight the night before surgery. It is best to stop smoking now to improve your health. The morning of your surgery: * You may brush your teeth and [...] with you on the day of surgery. * If having surgery at [facility], you may want to bring a credit card if you want to use our Mobile Pharmacy for your discharge medications. Mobile pharmacy is not available at [facility], the Orthopedic Center, or the [place] for [facility]. Outpatient Surgery: * You must have a [...] For Your Medications: Pre-Surgery Instructions: Medication Instructions ??? amitriptyline (ELAVIL) 25 mg tablet Take morning of surgery ??? cetirizine (ZyrTEC) 10 mg tablet Take on day of surgery if needed ??? cholestyramine (QUESTRAN) 4 gram packet Don't take on day of surgery ??? escitalopram (LEXAPRO) 20 mg tablet Take morning of surgery ??? glucosamine/chondr evans A sod (OSTEO BI-FLEX ORAL) Don't take on day of surgery ??? lisinopriL (PRINIVIL,ZESTRIL) 10 mg tablet Don't take on day of surgery ??? montelukast (SINGULAIR) 10 mg tablet Take on day of surgery if needed ??? naproxen (NAPROSYN) 500 mg tablet Stop taking 5 days prior to surgery ??? Nortrel 1/35, 28, 1-35 mg-mcg per tablet Take morning of surgery ??? SUMAtriptan (IMITREX) 100 mg tablet Don't take on day of surgery ??? turmeric root extract 500 mg capsule Stop taking 1 week prior to surgery ??? zolpidem (AMBIEN) 5 mg tablet Take night before surgery if needed ??? valACYclovir (VALTREX) 1 gram tablet Take on day of surgery if needed General Instructions For Medications: ?? * Stop all of these medications 5 days prior to your surgery: excedrin, motrin, advil, ibuprofen, aleve, naproxen, meloxicam, celebrex, celecoxib.? For medications that you are instructed to take on the morning of surgery, take the medications with a few sips of water. ?? Stop all of these medications 7-14 days prior to your surgery: Vitamin E, Herbal medicines, DietPills ?? If you have pain, you may take tylenol (acetaminophen). Do not take more than 6 tablets or 3000 mg (3 g) within a 24 period. Call your surgeon and the CPAP clinic if any of the following happens before surgery: ?? Any changes in your health ?? You have a fever ?? You have any signs of an infection (chest, urinary tract or tooth) ?? You have been to the Emergency Room or were in the hospital ?? You have started taking any new medications ?? You have questions about a bowel prep or special diet before surgery * Perioperative Nursing Note - Lesly Brown RN - 11/26/2020 4:57 PM CDT Center for Preoperative Assessment and Planning Perioperative Nursing Note Telephone Preoperative Evaluation ([facility]) - TELEPHONE ONLY, NO PHYSICAL EXAM Date: 11/26/20 Vitals: 11/26/20 1636 Weight: 69.9 kg (154 lb) Height: 157.5 cm (5' 2 ) CHEST CIRCUMFERENCE: N/A Social History Tobacco Use Smoking Status Former Smoker ??? Packs/day: 1.00 ??? Years: 13.00 ??? Pack years: 13.00 ??? Types: Cigarettes ??? Start date: 1992 ??? Quit date: 2006 ??? Years since quittin.7 Smokeless Tobacco Never Used Substance and Sexual Activity Drug Use Never Alcohol Use How often do you have a drink containing alcohol?: 4 or more times a week How many drinks containing alcohol do you have on a typical day when you are drinking?: 1 or 2 How often do you have six or more drinks on one occasion?: Never Outpatient Medications Marked as Taking for the 12/08/20 encounter (Hospital Encounter) Medication Sig Dispense Refill ??? amitriptyline (ELAVIL) 25 mg tablet Take 25 mg by mouth every morning ??? cetirizine (ZyrTEC) 10 mg tablet Take 10 mg by mouth every morning ??? cholestyramine (QUESTRAN) 4 gram packet Take 1 packet by mouth nightly ??? escitalopram (LEXAPRO) 20 mg tablet Take 20 mg by mouth every morning ??? glucosamine/chondr evans A sod (OSTEO BI-FLEX ORAL) Take 1 capsule by mouth every morning ??? lisinopriL (PRINIVIL,ZESTRIL) 10 mg tablet Take 10 mg by mouth every morning ??? montelukast (SINGULAIR) 10 mg tablet Take 10 mg by mouth nightly ??? naproxen (NAPROSYN) 500 mg tablet Take 500 mg by mouth as needed ??? Nortrel 1/35, 28, 1-35 mg-mcg per tablet Take 1 tablet by mouth nightly ??? SUMAtriptan (IMITREX) 100 mg tablet Take 100 mg by mouth as needed ??? turmeric root extract 500 mg capsule Take 1 capsule by mouth every morning ??? zolpidem (AMBIEN) 5 mg tablet Take 5 mg by mouth nightly Implants No active implants to display in this view. SKIN Piercings Remaining: Yes Wound (LDAs) Type of Wound (LDA): (None) SCREENINGS Joshua Fall Risk Score (Retired): 15 Cody index score: 100 PATIENT CARE PLANNING Advance Directives (For Healthcare) Have you reviewed your Advance Directive and is it valid for this stay?: Not applicable Advance Directive: Patient does not have advance directive, Patient refused information Information Provided on Healthcare Directives: No Communication/Forest Patrolman Needs Communication Needs: Contacts, Glasses Patient's Preferred Language: Micronesian Does caregiver's language differ from patient's?: No Is an rough planer tender needed? : No Assistive Devices/DME: Eyeglasses, Contacts Hearing - Right Ear: Functional Hearing - Left Ear: Functional Discharge Planning Type of Residence: Private residence Living Arrangements: Spouse/significant other Support Systems: Spouse/significant other Patient expects to be discharged to:: Private residence (Tevin will be cab driver after surgery.) COVID Screening Covid-19 Screening In the last 10 days have you had any new or worsening cough, SOB, fever (>=100F), body aches, loss of taste or smell, diarrhea or vomiting, or sore throat?: (!) Yes (cough) Have you had close contact with anyone with confirmed or suspected COVID-19 in the past 2 weeks?: No Do you live in or work in a congregate living facility (ex. assisted living/prison facility, fdc, intermediate)?: No Have you tested positive for COVID-19 within the last 14 days?: No Have you previously tested positive for COVID-19? No Have you had a COVID -19 exposure within the past 14 days? No Were both or all people exposed wearing masks (cloth, isolation, surgical or N95)? N/A TESTING PLAN-See Instructions for plan We recommend you Self-Isolate after COVID Testing: Stay at home, if possible until your surgery date. Maintain a 6 foot distance from other people (social distancing). Avoid touching your eyes, nose and mouth with unwashed hands. Wash your hands often with soap and water for at least 20 seconds. Use an alcohol- based hand ribbon tier that contains at least 60% alcohol if soap and water are not available. ADDITIONAL COMMENTS/ FOLLOW UP * Pre-Procedure Instructions - Lesly Brown RN - 11/26/2020 4:56 PM CDT [facility] PRE-SURGICAL NURSING INSTRUCTIONS Telephone Assessment General Information Discussed with Patient: 1. Surgery location provided to patient. 2. Arrival time and surgical time will be provided to the patient by their surgeon. 3. You should wear clothing that is clean, loose, comfortable and easy to get in and out of on the day of surgery. 4. You should leave your valuables and any jewelry at home. No metal or piercings are allowed in the operating room. 5. You should bring your insurance card, a photo ID (example: Production Material Handler's License) and a method of payment for any insurance copay, deductible or copay for discharge medications. 6. You should bring a complete, up-to-date list of all your medications on the day of surgery, including any over the counter medications or supplements you may take. 7. You should bring your Advanced Directive and/or Living Will with you on the day of surgery if you have not verified a copy is already in your Epic Chart. How To Prepare Your Skin For Surgery 2 Day Scrub Instructions: Antiseptic/antibacterial soap will decrease the amount of germs on your skin. It is important to minimize the risk of getting an infection by doing the following: The Evening Before Surgery 1. Change all the linens on the bed the night before surgery so you are sleeping on clean fresh sheets and pillowcases. Remove nail coverings, artificial nails and nail bhutanese. 2. Wash your hair and face with your regular shampoo (no conditioners) and facial cleanser. First, shampoo and rinse your hair with your own shampoo. Do this so the chlorhexidine scrub is not washed off by your shampoo. 3. Take a shower using ?? cup (2 oz.) of a surgical soap known as chlorhexidine gluconate-CHG 4% (Brand name: Hibiclens). You may purchase this soap at a pharmacy or department store or come by our CPAP clinic and we will give it to you free of charge. 4. Use a clean washcloth to apply the chlorhexidine soap to all areas. Scrub your body from the neck down. Ask someone to wash your back if you are unable to do this yourself. Make sure to wash your arms and armpits, behind your ears, your legs and behind your knees, your feet, your groin area and between or under your skin folds. Do not use chlorhexidine on genital area, face, eyes, ears, mouth or hair. The soap will not bubble or lather very much. That is OK. If you get the soap in your eyes,ears or mouth, rinse well with water. Step out of the water and leave soap on your skin for 2 minutes prior to rinsing off. Rinse thoroughly and dry yourself off with a clean fresh dry towel. 5. Wear clean clothes or pajamas to sleep in that night. 6. DO NOT place anything extra on the skin or hair such as deodorant, make-up, hair products, lotions, powders, Vaseline, creams, oils, conditioners or perfumes. The Morning of the Surgery: The morning of the surgery, you will repeat the shower process. 1. Wash your hair and face with your regular shampoo (no conditioners) and facial cleanser. First, shampoo and rinse your hair with your own shampoo. Do this so the chlorhexidine scrub is not washed off by your shampoo. 2. Shower with the remaining ?? cup (2 oz.) of the antiseptic soap with another fresh washcloth andtowel. 3. Use a clean washcloth to apply the chlorhexidine soap to all areas. Scrub your body from the neck down. Ask someone to wash your back if you are unable to do this yourself. Make sure to wash your arms and armpits, behind your ears, your legs and behind your knees, your feet, your groin area and between or under your skin folds. Do not use chlorhexidine on genital area, face, eyes, ears, mouth or hair. The soap will not bubble or lather very much. That is OK. If you get the soap in your eyes,ears or mouth, rinse well with water. Step out of the water and leave soap on your skin for 2 minutes prior to rinsing off. Rinse thoroughly and dry yourself off with a clean fresh dry towel. 4. Wear clean fresh clothes after you shower. 5. DO NOT shave the morning of surgery. 6. DO NOT place anything extra on the skin or hair such as deodorant, make-up, hair products, lotions, powders, Vaseline, creams, oils, conditioners or perfumes. If you are unable to obtain the chlorhexidine gluconate-CHG 4% soap, you may wash the night before and the morning of surgery with an antibacterial soap, such as Dial. You may call the [facility] (Pre-Testing) Department: Sunday-Sunday from 8am-5pm with questions @ [phone]. COVID TESTING PLAN: Please note, the below is the Pre-Procedure COVID Testing Plan for the [facility] for Anesthesia. Surgeon's offices may require additional testing. If so, the surgeon's office will reach out to the patient to discuss further testing. 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 COVID Vaccination Record Card unable to be visually verified during assessment. Patient was instructed to bring their COVID Vaccination Record Card on the day of surgery for verification of their vaccination status. COVID Test Plan: COVID Test Request Placed in Epic to [facility]. HOLIDAY hours mayvary at testing site. Test to be performed on 12/06/20 at [facility] ([facility])[address] [place] [address], M-F 8- 4:30, Sat/Sun 8-12:30, Call once on site@[phone]. If you have COVID testing or should have COVID testing for your surgery/procedure, please read below section: If you need to reschedule your COVID test to a different location or if your surgery gets rescheduled, you MUST call [phone] Sunday-Sunday 8am-4:30pm to get your COVID testing rescheduled or your lab order will not be available at Testing Sites. COVID Testing is only valid for up to 96 hours prior to surgery date, unless otherwise specified. If you are unable to reach staff at the above phone number, please call the CPAP Staff at [phone]. This number cannot order a lab test, but can attempt to contact the above number/staff to assist you. CPAP Staff are available Sunday- Sunday 8am-5pm. We recommend you Self-Isolate after COVID Testing: Stay at home, if possible, until your surgery date. Maintain a 6-foot distance from other people (social distancing) and wear a face mask if you areable. Avoid touching your eyes, nose and mouth with unwashed hands. Wash your hands often with soapand water for at least 20 seconds. Use an alcohol-based hand ribbon tier that contains at least 60% alcohol if soap and water are not available. These are general guidelines, but if have been told by aphysician that you should not perform any of the above, please follow physician's guidelines. All patients should read below section: All visitors/patients are being asked to wear a clean face mask when entering the hospital. COVID 19 Updates & Visitor Policy: Please access [email or web address] for the most updated information. Information on [facility]: Please view [email or web address] (Patient & Visitor Information) for additional details regarding Advanced Directive forms, AWARE, directions, parking information, lodging, Internet access, dining and more. Information on [facility]: Please view [email or web address] (Patient and Visitor Information) for parking/directions and more. For MyChart information, to activate account or password recovery, please go to [email or web address] or call [phone] (toll-free: [phone]). Information for Suicide Prevention: National Suicide Prevention Lifeline (8-419- 021-YXFW (1680)). Surgery Times: For patients having surgery @ [facility] or [facility], if your surgeon's office has not notified you of your surgery time by NOON THE BUSINESS DAY BEFORE your surgery, please call [phone] and ask for your surgeon'silverfice Dr. Franklin. documented in this encounter Plan of Treatment Not on file documented as of this encounter Procedures Procedure Name Priority Date/Time Associated Diagnosis Comments TRAPEZIECTOMY - INTERNAL BRACE 12/08/2020 11:01 AM CDT Arthritis of carpometacarpal (CMC) joint of left thumb Special Needs ARTHREX INTERNAL BRACE POCT HCG, URINE Routine 12/08/2020 9:32 AM CDT documented in this encounter Results * POCT hCG, urine (12/08/2020 9:32 AM CDT) HCG, ur, POC Negative Lot Number [id number] QC Backgroud Clear Acceptable QC Control Line Acceptable Urine 12/08/2020 9:32 AM CDT Kristina Patel NP POINT OF CARE TEST ORDERABLES Final Result documented in this encounter Visit Diagnoses Diagnosis Arthritis of carpometacarpal (CMC) joint of left thumb- Primary Arthritis of carpometacarpal (CMC) joint of left thumb documented in this encounter Admitting Diagnoses Diagnosis Arthritis of carpometacarpal (CMC) joint of left thumb documented in this encounter Administered Medications Inactive Administered Medications - up to 3 most recent administrations Medication Order MAR Action Action Date Dose Rate Site acetaminophen (TYLENOL) tablet 1,000 mg 1,000 mg, oral, Once, On Sun12/08/20 at 0945, For 1 dose, Pre-Op, Indications: Pre-Emptive AnalgesiaIndications:Pre-Emptive Analgesia Given 12/08/2020 9:31 AM CDT 1,000 mg HYDROmorphone (DILAUDID) injection 0.2 mg 0.2 mg, intravenous, Administer over 2 Minutes, Every 10 min PRN, 1st line for pain, Starting on Sun12/08/20 at 1219, Phase I, Switch to 2nd line analgesic order if pain is uncontrolled or increasing after 2 doses. Notify Anesthesiologist if total PACU dose reaches 2 mg and pain score 5/10 or more., Indications: PainIndications:Pain Given 12/08/2020 12:35 PM CDT 0.2 mg Given 12/08/2020 12:24 PM CDT 0.2 mg HYDROmorphone (DILAUDID) injection 0.4 mg 0.4 mg, intravenous, Administer over 2 Minutes, Every 10 min PRN, 2nd line for pain, Starting on Sun12/08/20 at 1219, Phase I, May administer 10 mintes after 2nd dose of 1st line analgesic agent for uncontrolled or increasing pain. Revert to 1st line dose if POSS of 3. Notify Anesthesiologist if total PACU dose reaches 2 mg and pain score 5/10 or more., Indications: PainIndications:Pain Given 12/08/2020 12:45 PM CDT 0. 4 mg Lactated Ringer's (LR) infusion 30 mL/hr, intravenous, Continuous, Starting on Sun12/08/20 at 0945, Pre-Op Restarted 12/08/2020 11:53 AM CDT Rate/Dose Verify 12/08/2020 10:56 AM CDT 30 mL/ hr New Bag 12/08/2020 9:31 AM CDT 30 mL/hr 30 mL/hr sodium chloride 0.9% irrigation As needed, Starting on Sun12/08/20 at 1029, Intra-Op Given 12/08/2020 10:29 AM CDT 1,000 mL Surgical Site documented in this encounter Discontinued Medications Medication Sig Discontinue Reason Start Date End Da te amitriptyline (ELAVIL) 25 mg tabletIndications:depres mary Take 25 mg by mouth every morning Therapy completed 08/16/2020 12/08/2020 documented as of this encounter Historical Medications * This list may reflect changes made after this encounter. ALPRAZolam (XANAX) 0.25 mg tabletIndication s:Insomnia,anxie ty Take 1-2 tablets (0.25-0.5 mg total) by mouth nightly as needed for anxiety or sleep 12/03/2020 montelukast (SINGULAIR) 10 mg tabletIndication s:Perennial Allergic Rhinitis,Seasona l Allergic Rhinitis Take 1 tablet (10 mg total) by mouth 2 (two) times a day cetirizine (ZyrTEC) 10 mg tabletIndication s:Allergic Rhinitis Take 2 tablets (20 mg total) by mouth every morning glucosamine/breezy dr nathan young (OSTEO BI-FLEX ORAL)Indications :Joint health Take 1 capsule by mouth every morning turmeric root extract 500 mg capsuleIndicatio ns:Anti-inflamma tory Take 3 capsules by mouth every morning lisinopriL (PRINIVIL,ZESTRI L) 10 mg tabletIndication s:hypertension Take 1 tablet (10 mg total) by mouth every morning 09/08/2020 03/07/2023 added in this encounter Active and Recently Administered Medications Times are shown in CDT. Scheduled Medication Order 12/06/2020 12/07/2020 12/08/2020 acetaminophen (TYLENOL) tablet 1,000 mg (COMPLETED) 1,000 mg, oral, Once, On Sun12/08/20 at 0945, For 1 dose, Pre-Op, Indications: Pre-Emptive Analgesia 0931 (Given - Provid er: Bela Perry RN) Continuous Medication Order 12/06/2020 12/07/2020 12/08/2020 Lactated Ringer's (LR) infusion 30 mL/hr, intravenous, Continuous, Starting on Sun12/08/20 at 0945, Pre-Op 0931 (New Bag - Prov ider: Bela Perry RN)1056 (Rate/Dose Verify - Provider: Lucio Wolfe CRNA)1152 (Paused - Provider: Lucio Wolfe CRNA - Comment: Switch to gravity)1153 (Restarted - Provider: Lucio Wolfe CRNA) PRN Medication Order 12/06/2020 12/07/2020 12/08/2020 acetaminophen (TYLENOL) tablet 1,000 mg 1,000 mg, oral, Once as needed, 3rd line for pain, If not given in last 6 hours and able to tolerate PO, Starting on Sun12/08/20 at 1219, For 1 dose, Phase I, When able to tolerate PO., Indications: Pain HYDROmorphone (DILAUDID) injection 0.2 mg 0.2 mg, intravenous, Administer over 2 Minutes, Every 10 min PRN, 1st line for pain, Starting on Sun12/08/20 at 1219, Phase I, Switch to 2nd line analgesic order if pain is uncontrolled or increasing after 2 doses. Notify Anesthesiologist if total PACU dose reaches 2 mg and pain score 5/10 or more., Indications: Pain 1224 (Given - Provid er: Stephanie Barcenas RN)1235 (Given - Provider: Stephanie Barcenas RN) HYDROmorphone (DILAUDID) injection 0.4 mg 0.4 mg, intravenous, Administer over 2 Minutes, Every 10 min PRN, 2nd line for pain, Starting on Sun12/08/20 at 1219, Phase I, May administer 10 mintes after 2nd dose of 1st line analgesic agent for uncontrolled or increasing pain. Revert to 1st line dose if POSS of 3. Notify Anesthesiologist if total PACU dose reaches 2 mg and pain score 5/10 or more., Indications: Pain 1245 (Given - Provid er: Stephanie Barcenas RN) naloxone (NARCAN) 0.4 mg/mL injection 0.04-0.4 mg 0.04-0.4 mg, intravenous, Once as needed, other, excessive sedation/respiratory depression, Starting on Sun12/08/20 at 1219, For 1 dose, Phase I, Dilute 0.4 mg with 9 mL NS (final concentration 0.04 mg/mL). For respiratory depression (respiratory rate less than 6), administer 0.4 mg IVP over 30 seconds. For excessive sedation administer 0.04 mg (1 mL) every 1 minute until desired level of alertness. For IV, administer over 30 seconds., Indications: Opioid Toxicity ondansetron (ZOFRAN) injection 4 mg 4 mg, intravenous, Administer over 2 Minutes, Once as needed, nausea, vomiting, Starting on Sun12/08/20 at 1219, For 1 dose, Phase I, Switch to prochlorperazine if no relief within 30 minutes. , Indications: Nausea and Vomiting prochlorperazine (COMPAZINE) injection 5 mg 5 mg, intravenous, Every 10 min PRN, nausea, vomiting, 2nd line agent if N/V not relieved by ondansetron, Starting on Sun12/08/20 at 1219, Phase I, Can repeat 5mg if not relieved by first dose, Indications: Nausea and Vomiting sodium chloride 0.9% irrigation (CANCELED) As needed, Starting on Sun12/08/20 at 1029, Intra-Op 1029 (Given - Provid er: Anurag Franklin MD) documented in this encounter Orders Medications Ordered That Christiano ht Not Have Been Administered Count Last Ordered Date First Ordered Date acetaminophen (TYLENOL) tablet 1,000 mg 1 1 ceFAZolin (ANCEF) 2,000 mg/2 0 mL in sterile water (premix) 2,000 mg 1 12/08/2020 naloxone (NARCAN) 0.4 mg/mL injection 0.04-0.4 mg 1 12/08/2020 ondansetron (ZOFRAN) injection 4 mg 1 12/08 prochlorperazine (COMPAZINE) injection 5 mg 1 12/08/2020 sodium chloride 0.9% flush 0.5-20 mL 1 08/2020 documented in this encounter Care Teams Felt Hat Inspector And Packer Relationship Specialty Start Date End Date Melani Franklin DO [address] [facility] [place] [address] PCP - General Internal Medicine 10/05/20 documented as of this encounter
--- OUTSIDE RECORDS SUMMARY | 2024-02-21 16:24 | XMS_ITS | Encounter Summary ---
Author Organization [facility] Address [address] [place] [address] Phone Care Team Providers Care Internal Grinder Tender Name Role Phone Melani Franklin Primary Care Provider [phone] Reason for Visit * Reason Comments Post-op Encounter Details Date Type Department Care Team (Latest Contact Info) Description 12/17/2020 10:50 AM CDT Office Visit [facility] Surgery [address] 2nd [address] [place] [address] Anurag Franklin MD [address] 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 ESTABLISHED PATIENT VISIT INTERIM HISTORY Jody Mason was seen in the office today. She is now 2 weeks out after thumb base reconstruction using internal brace following trapezium excision.. IMPRESSION/TREATMENT PLAN Wound clean and dry. Looks quite good. Pain is minimal. Thumb is nicely position. Splint and see back in four weeks time. Therapy for motion. Anurag Franklin M.D., MSc, FRCS(C) Professor [facility] documented in this encounter Plan of Treatment Not on file documented as of this encounter Visit Diagnoses Diagnosis Arthritis of carpometacarpal (CMC) joint of left thumb- Primary documented in this encounter Historical Medications * This list may reflect changes made after this encounter. diazePAM (VALIUM) 5 mg tablet TAKE DIRECTED UPON ARRIVAL FOR PROCEDURE AND THEN EVERY 6 HOURS NEEDED POST-OP 12/15/2020 4 added in this encounter Care Teams Internal Grinder Tender Relationship Specialty Start Date End Date Melani Franklin DO [address] [id number] [place] [address] PCP - General Internal Medicine 10/05/20 documented as of this encounter
--- OUTSIDE RECORDS SUMMARY | 2024-02-21 16:24 | XMS_ITS | Encounter Summary ---
Author Organization [facility] Address [address] [place] [address] Phone Care Team Providers Care Irrigator Head Name Role Phone NoemiLinaa Linda MENARD Primary Care Provider [phone] Reason for Visit * Reason Comments OT Treatment * Consultation (Routine) - Closed Specialty Diagnoses / Procedures Referred By Contact Referred To Contact Occupational Therapy Diagnoses Arthritis of carpometacarpal (CMC) joint of left thumb Anurag Franklin MD Phone: tel:[phone] fax:[phone] [facility] (All Locations) Referral ID Status Reason Start Date Expiration Date V isits Requested Visits Authorized [id number] Closed Specialty Services Required 11/12/2020 12/12/2021 24 24 Encounter Details Date Type Department Care Team (Late st Contact Info) Description 01/12/2021 8:30 AM CONTINUITY COORDINATOR Therapy [facility] Occupational Therapy [address] [place] [id number] [place] [address] [address] [place] [address] Arthritis of carpometacarpal (CMC) joint of left [...] on file Legal Sex Female 12:36 PM CONTINUITY COORDINATOR Gender Identity Female 12/10/2020 10:46 AM CDT Sexual Orientation Not on file documented as of this encounter Progress Notes * Khalida Carey, OT - 01/12/2021 8:30 AM CST [facility] Occupational Therapy Treatment Note Jody Mason 1970 [...] and therapist preference and patient's pain level 5 weeks post op Subjective:Patient voices that she got the spring load scissors and the pen. [] Mental health status discussed Details: Pain:0/10 today at rest; 4-6/10 with use such as pulling up her compression hose and donning a bra and with HEP. Objective: Clinical Exam: Active Thumb Range of Motion ?? Right Left MP extension/ flexion 0/61 MP extension/ flexion 0 with verbal cue not to go into hyperextension/29 IP extension/flexion +/66 ) IP extension/flexion 0/49 Palmar abduction 55 Palmar abduction 40 Radial abduction 50 Radial abduction 41 Opposition +10 Kapandji Opposition To the SF to PIP without pain Other: ?? Other: ? *Patient has a swan neck deformity and was verbally cued not to go into that deformity. WE/WF: 74/65 EDEMA ?? Thumb Right Left ?? P1 IP P2 ?? P1 IP P2 Thumb 6.2 6.0 5.5 Thumb 6.5 6.1 5.2 Wrist crease: 15.8 Treatment provided: -MHP to left hand/thumb for tissue extensibility -Scar massage and soft tissue massage to adductor pollicis -PROM: gentle RAB, PAB, and MP flexion and composite flexion -Thumb PAB, MP flexion, serial opposition and thumb slide actively -Isometric thumb good posture hold, FPB hold, first dorsal interossei -Pulsed US to scar for pain and desensitization, 50%, 3.3 Mhz, 0.8 w/cm2 -Functional activities: miner pick marbles, health ball manipulation, shower ring twirl -Deferred taping to scar as it is improving. Assessment: Graca is improving with noted increased FPB strength with less hyperextension at MP. Plan: AROM, and continue with gentle PROM if needed. Consider applying tape over thumb scar to soften it. Gentle strengthening as tolerated. Goals: ?? Goal Status / Date Updated [...] small objects such as coins and pills. Onging 01/12/2021 ?? LTG2 Patient will verbalize 2 joint protection techniques to decrease force to thumb joints. MET 12/30/2020 ?? LTG3 ?? New 12/15/2020 ?? Start time 08:35 End Time:09:35 Khalida Carey OT/ELIT INUITY COORDINATOR documented in this encounter Plan of Treatment Not on file documented as of this encounter Visit Diagnoses Diagnosis Arthritis of carpometacarpal (CMC) joint of left thumb- Primary documented in this encounter Care Teams Irrigator Head Relationship Specialty Start Date End Date Melani Franklin DO [address] [place] [address] PCP - General Internal Medicine 10/05/20 documented as of this encounter
--- OUTSIDE RECORDS SUMMARY | 2024-02-21 16:24 | XMS_ITS | Encounter Summary ---
Author Organization [facility] Address [address] [place] [address] Phone Care Team Providers Care Design Teacher Name Role Phone Melani Franklin Linda MENARD Primary Care Provider [phone] Reason for Visit * Reason Comments OT Initial Eval * Consultation (Routine) - Closed Specialty Diagnoses / Procedures Referred By Contact Referred To Contact Occupational Therapy Diagnoses Arthritis of carpometacarpal (CMC) joint of left thumb Anurag Franklin MD Phone: tel:[phone] fax:[phone] [facility] (All Locations) Referral ID Status Reason Start Date Expiration Date V isits Requested Visits Authorized [id number] Closed Specialty Services Required 11/12/2020 12/12/2021 24 24 Encounter Details Date Type Department Care Team (Late st Contact Info) Description 12/15/2020 10:30 AM CDT Therapy [facility] Occupational Therapy [address] [facility] 1st Floor [address] [place] [address] [place] [address] [place] [address] Arthritis of carpometacarpal (CMC) joint of left [...] on file 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 [address] [place] [address] No primary diagnosis found. MD's order on 12/13/20 Diagnosis: L Thumb CMC Joint Arthritis Surgery: Trapezium excision with internal brace placement Date of onset: Date of surgery: 12/08/20 ?? Frequency/Duration: 1 x week for 8 weeks ?? Next MD Visit: ?? OT/PT Evaluate and Treat: 1 week post op Orthosis Purpose: to protect thumb post joint reconstruction during healing [...] and therapist preference and patient's pain level ?Subjective: Patient reports: Pt. Reports that the removal of her cast was such a relief. She reports that her kids help her a lot with cooking, making the bed, and sweeping. Patient's primary goal: Diagnosis: Arthritis of CMC joint of left thumb, trapeziectomy of left wrist Date of onset: 5 years ago (chronic) Cause of injury: Arthritis at left CMC joint Date of surgery:12/08/2020 Surgery details: Trapezium excision with internal brace placement Next MD Appointment: 12/17/2020 at 10:15AM Past Medical History: Diagnosis Date ??? Arthritis ??? Asthma ??? Hypertension ??? Migraines ??? Motion sickness Morphine and Trazodone History of prior therapy services: Reports she received hand therapy 2 years ago (December 2018) forarthritis of her left CMC joint at [facility]. Occupation/Hobbies: Patient reports that kids help me a lot with cooking and housework. 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 Do you feel safe in your home environment?: [x] Yes [] No Hand dominance [x] Right [] Left [] Ambidextrous Involved side [] Right [x] Left [] Bilateral Numbness [x] Yes [] No Location: Burning sensation at incision site, reports that when she eats salty foods she experiences numbness through lateral side of left thumb. Tingling [] Yes [x] No Location: Pain at best: 2/10 Pain at worst: 4/10 Are you taking pain medication? [] Yes [x] No Medication using: Took oxycodone the night of the surgery and the morning after, not currently taking oxycodone to avoid constipation ADL Status: [x] Independent [] Independent but with increased time or pain [] Requires assistance [] Dependent Details: IADL Status: [] Independent [] Independent but with increased time or pain [x] Requires assistance [] Dependent Details: Kids help with vacuum, sweeping, making bed (2 kids- 10 y/o and 13 y/o) Leisure activities: [] Able to participate in leisure activities [x] Able to participate but with increased time or pain [x] Unable to participate in leisure activities Details: Typing on computer and texting is more difficult, 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 Sleep: [x] Reports adequate sleep to support daily routines [] Reports inadequate sleep to support daily routines Details: Has taken trozopam and atevan to sleep. Objective: Wound/appearance: Steri- strips are curling up and these were trimmed. There is no redness or signs of infection. Resting thumb position: sits in [place] Deformity MP hyperextension: +6 degrees IP sits 15 degrees flexion Clinical Exam: Active Thumb Range of Motion Right Left MP extension/ flexion 0/61 MP extension/ flexion 0 with verbal cue not to go into hyperextension/14 IP extension/flexion +/66 ) IP extension/flexion /36 IP flexion Palmar abduction 55 Palmar abduction 40 Radial abduction 50 Radial abduction 32 Opposition +10 Kapandji Opposition To the middle fingertip Other: Other: *Patient has a swan neck deformity and was verbally cued not to go into that deformity. Full flexion to DPC deficit EDEMA Thumb Right Left P1 IP P2 P1 IP P2 Thumb 6.2 6.0 5.5 Thumb 6.6 6.1 5.3 Treatment Provided: -Removed post op dressing. -Provided stockinette to wear under orthosis. -Fabricated a hand based thumb spica with IP free, to be worn at all times except for hand hygiene and showering. -Instructed on edema management and AROM thumb MP flexion, serial opposition, and PAB with instruction to avoid MP hyperextension. To be completed 10 reps 4x/a day. Assessment: Pt demonstrated independence/verbalized understanding in: [] HEP [] Don/doff orthosis [x] All tx listed above Assessment details: Jody has slight swan neck deformity noted post dressing removal. She verbalizes orthosis is fitting well and understands to come in for adjustment if needed. Patient would benefit from skilled and necessary O.T. services to address deficits and promote opitimal recovery. Impairment list: [x] Coordination [x] Edema [] Endurance/activity tolerance [] Fine motor use [] Flexibility [] Gross motor use [] Muscle tone [x] Pain [x] Range of motion [x] Scar tissue [] Sensation [] Sensory/motor [] Skin integrity [] Strength Other: Functional Limitations: [] ADLs [] Community activities [] Communication [] Education [] Home management [] Leisure activities [] Play [] Safety [] [...] of avoiding MP hyperextension. New 12/15/2020 MET LTG1 Able to oppose thumb to 5th MCP head for in hand manipulation of small objects such as coins and pills. New 12/15/2020 LTG2 Patient will verbalize 2 joint protection techniques to decrease force to thumb joints. New 12/15/2020 LTG3 New 12/15/2020 Plan: Frequency/Duration: weekly Plan Details: MHP, hot pack, thumb AROM, continue thumb good posture training. Start time: 10;30 End time: 11:30 Khalida Carey OTR/L,CHT FOR INSURANCE AUTHORIZATION PURPOSES ONLY: 1. Primary purpose of therapy: Rehabilitation 2. Name tool(s) used during evaluation: 3. Will any of the following be used as a primary treatment: None of these apply 4. Body part(s) affected: Head/Neck, Upper Extremity, Spine, Lower Extremity, Wound, Vestibular andBalance/Falls 5. Does the patient have difficulty performing [...] medical equipment (eg, gastrostomy tube, shunt, or drain) and Social determinants of health (eg, barriers related to nutrition, education, housing, or communication) documented in this encounter Plan of Treatment Not on file documented as of this encounter Visit Diagnoses Diagnosis Arthritis of carpometacarpal (CMC) joint of left thumb- Primary documented in this encounter Orders Outpatient Referral Count Last Ordered Date st Ordered Date AMB REFERRAL ORDER TO HAND THERAPY 1 2020 documented in this encounter Care Teams Design Teacher Relationship Specialty Start Date End Date Melani Franklin DO [address] [place] [address] PCP - General Internal Medicine 10/05/20 documented as of this encounter
--- OUTSIDE RECORDS SUMMARY | 2024-02-21 16:24 | XMS_ITS | Encounter Summary ---
Author Organization [facility] Address [address] [place] [address] Phone Care Team Providers Care Freight Sorter Name Role Phone Melani Franklin Primary Care Provider [phone] Reason for Visit * Reason Comments Pain Encounter Details Date Type Department Care Team (Latest Contact Info) Description 11/02/2020 9:50 AM CDT Office Visit [facility] Orthopaedic Surgery [address] [facility] [address] 6th [place] [address] [place] [address] Anurag Franklin MD [address] [facility] [address] [place] [address] Arthritis of carpometacarpal (CMC) joint of left thumb (Primary Dx) Social History Tobacco Use Types Packs/Day Years Used Date Smoking Tobacco: Former Cigarettes 1 13 Smokeless Tobacco: Never AUDIT-C Answer Date Recorded Q1: How often do you have a drink containing alc ohol? Monthly or less 11/02/2020 Q2: How many drinks containi ng alcohol do you have on a typical day when you are drinking? 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 Difficulty with general production manager and pinch. Difficulty with strength activities. Comes in for evaluation and treatment with her who is an orthopedic surgeon in [place]. PAST MEDICAL HISTORY She has a past medical history of Arthritis, Asthma, Hypertension, Meningitis, and Migraines. PAST SURGICAL HISTORY She has a past surgical history that includes Cholecystectomy. INITIAL REVIEW OF MEDICATIONS She has a current medication list which includes the following prescription(s): valacyclovir, amitriptyline, cholestyramine, escitalopram, naproxen, nortrel (28), sumatriptan, and zolpidem. DRUG ALLERGIES She is allergic to morphine. SOCIAL HISTORY She reports that she has quit smoking. She has a 13.00 pack-year smoking history. She has never used smokeless tobacco. She reports that she does not use drugs. FAMILY HISTORY Her family history includes Alcohol abuse in her brother; Arthritis in her mother; Heart disease inher father; Hypertension in her father; Mental illness in her brother. REVIEW OF SYSTEMS The intake questionnaire was reviewed. No relevant new findings (noted by the patient over the pastthirty days) were recorded. PHYSICAL EXAMINATION She looks terrific. Healthy. Fit. Looks her stated age or younger. No distress. Alert and oriented x3. Minimal thenar atrophy. No hyperextension of the MCP. Thenar function normal. Minimal plateau formation. Tender to palpation and positive grind. IMPRESSION/TREATMENT PLAN I have looked at her x-rays. She has [place] three arthrosis. STT joints within normal limits. I havegone over the options with her including arthrodesis and arthroplasty. She has elected to proceed with arthroplasty and is enrolling in our study. We are going to get her randomized and proceed with surgery as soon as we can. Anurag Franklin M.D., MSc, FRCS(C) Professor [facility] Orthopedics documented in this encounter Plan of Treatment Not on file documented as of this encounter Visit Diagnoses Diagnosis Arthritis of carpometacarpal (CMC) joint of left thumb- Primary documented in this encounter Historical Medications * This list may reflect changes made after this encounter. escitalopram (LEXAPRO) 20 mg tabletIndications:An xiety with Depression Take 0.5 tablets (10 mg total) by mouth every morning 09/08/2020 valACYclovir (VALTREX) 1 gram tabletIndications:Pr ophylaxis, Medical,allergy face rash Take 2 tablets (2,000 mg total) by mouth 2 (two) times a day 06/19/2019 amitriptyline (ELAVIL) 25 mg tabletIndications:de pression Take 25 mg by mouth every morning 08/16/2020 1 cholestyramine (QUESTRAN) 4 gram packetIndications:ta kes since cholecystectomy Take 1 packet by mouth nightly 08/22/2020 4 naproxen (NAPROSYN) 500 mg tabletIndications:Mi graines [...] mg total) by mouth nightly 10/26/2020 4 added in this encounter Care Teams Freight Sorter Relationship Specialty Start Date End Date Melani Franklin DO [address] [facility] [address] [place] [address] PCP - General Internal Medicine 10/05/20 documented as of this encounter
--- OUTSIDE RECORDS SUMMARY | 2024-02-21 16:24 | XMS_ITS | Encounter Summary ---
Author Organization [facility] Address [address] [place] [address] Care Team Providers Care Strategic Marketing Leader Name Role Phone Melani Franklin Linda MENARD Primary Care Provider [phone] Reason for Referral * Diagnostic Imaging (Routine) - Closed Specialty Diagnoses / Procedures Referred By Lishaac sahil Referred To Contact Diagnoses Arthritis of carpometacarpal (CMC) joint of left thumb Procedures X-ray wrist left 3+ views Anurag Franklin MD Phone: tel: fax: Center [facility] Referral ID Status Reason Start Date Expiration Date Visits Re quested Visits Authorized [id number] Closed 02/24/2021 03/26/2022 1 1 NG MACHINE TENDER Reason for Visit * Diagnostic Imaging (Routine) - Closed Specialty Diagnoses / Procedures Referred By Contac sahil Referred To Contact Diagnoses Arthritis of carpometacarpal (CMC) joint of left thumb Procedures X-ray wrist left 3+ views Anurag Franklin MD Phone: tel: fax: Center [facility] Referral ID Status Reason Start Date Expiration Date Visits Re quested Visits Authorized [id number] Closed 02/24/2021 03/26/2022 1 1 Encounter Details Date Type Department Care Team (Latest Contact Info) Description 03/08/2021 8:27 AM DRYING MACHINE TENDER - 03/08/2021 11:59 PM DRYING MACHINE TENDER Hospital Encounter [facility] [address] [place] [address] Anurag Franklin MD [address] [facility] [address] [place] [address] Arthritis of carpometacarpal (CMC) joint of left [...] on file Legal Sex Female 12:36 PM DRYING MACHINE TENDER Gender Identity Female 12/10/2020 10:46 AM CDT [...] VIEWS Schedule Routine, Read Routine (OP Routine) 03/08/2021 8:39 AM DRYING MACHINE TENDER Arthritis of carpometacarpal (CMC) joint of left thumb documented in this encounter Results * X-ray wrist left 3+ views (03/08/2021 8:39 AM DRYING MACHINE TENDER) Anatomical Region Laterality Modality Upper Extremities, Wrist Left Compute d Radiography 03/08/2021 8:55 AM DRYING MACHINE TENDER Impressions 03/08/2021 8:55 AM DRYING MACHINE TENDER Left trapeziectomy and basal thumb reconstruction in expected position. Electronically signed by: Reji Linda M.D. Narrative 03/08/2021 8:55 AM DRYING MACHINE TENDER XR WRIST LEFT 3 OR MORE VIEWS HISTORY: ??Left wrist pain. FINDINGS: ??4 views of the left wrist are obtained and compared with 10/14/2020. There is interval trapeziectomy and basal thumb reconstruction. There is mild heterotopic ossification at the base of the thumb metacarpal. Remaining joint spaces are preserved. There is no acute fracture. The soft tissues are normal. Procedure Note Reji Linda MD - 03/08/2021 XR WRIST LEFT 3 OR MORE VIEWS HISTORY: Left wrist pain. FINDINGS: 4 views of the left wrist are obtained and compared with 10/14/2020. There is interval trapeziectomy and basal thumb reconstruction. There is mild heterotopic ossification at the base of the thumb metacarpal. Remaining joint spaces are preserved. There is no acute fracture. The soft tissues are normal. IMPRESSION: Left trapeziectomy and basal thumb reconstruction in expected position. Electronically signed by: Reji Linda M.D. Anurag Franklin MD IMG XR PROCEDURES Final Resul t documented in this encounter Visit Diagnoses Diagnosis Arthritis of carpometacarpal (CMC) joint of left thumb documented in this encounter Care Teams Strategic Marketing Leader Relationship Specialty Start Date End Date Melani Franklin DO [address] [facility] [address] [place] [address] PCP - General Internal Medicine 10/05/20 documented as of this encounter
--- OUTSIDE RECORDS SUMMARY | 2024-02-21 16:24 | XMS_ITS | Encounter Summary ---
Author Organization [facility] Address [address] [place] [address] Phone Care Team Providers Care Office Mover Name Role Phone Melani Franklin Primary Care Provider [phone] Encounter Details Date Type Department Care Team (Late st Contact Info) Description 12/07/2020 Telephone [facility] Orthopaedic Surgery [address] [facility] Advanced Medicine 6th [place] [address] [place] [address] Anurag Franklin MD [address] [facility] [address] [place] [address] Social History Tobacco Use Types Packs/Day Years [...] on file 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 She was instructed to arrive at 8:30am. Patient called back and confirmed arrival time for tomorrow, 12/08/20. documented in this encounter Plan of Treatment Not on file documented as of this encounter Visit Diagnoses Not on filedocumented in this encounter Care Teams Office Mover Relationship Specialty Start Date End Date Melani Franklin DO [address] [place] [address] PCP - General Internal Medicine 10/05/20 documented as of this encounter
--- OUTSIDE RECORDS SUMMARY | 2024-02-21 16:24 | XMS_ITS | Encounter Summary ---
Author Organization [facility] Address [address] [place] [address] Phone Care Team Providers Care Canine Enforcement Officer Name Role Phone NoemiLinaa Linda MENARD Primary Care Provider [phone] Reason for Visit * Reason Comments OT Treatment * Consultation (Routine) - Closed Specialty Diagnoses / Procedures Referred By Contact Referred To Contact Occupational Therapy Diagnoses Arthritis of carpometacarpal (CMC) joint of left thumb Anurag Franklin MD Phone: tel:[phone] fax:[phone] [facility] (All Locations) Referral ID Status Reason Start Date Expiration Date V isits Requested Visits Authorized [id number] Closed Specialty Services Required 11/12/2020 12/12/2021 24 24 Encounter Details Date Type Department Care Team (Late st Contact Info) Description 01/05/2021 1:00 PM CDT Therapy [facility] Occupational Therapy [address] [facility] 1st [address] [place] [address] [place] [address] [place] [address] Arthritis of carpometacarpal (CMC) joint of left [...] on file 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 [] Mental health status discussed Details: Pain:2/10 today; 7/10 last Sunday. I think I did too much for . Objective: Clinical Exam: Active Thumb Range of Motion ?? Right Left MP extension/ flexion 0/61 MP extension/ flexion 0 with verbal cue not to go into hyperextension/40 IP extension/flexion +/66 ) IP extension/flexion 0/54 Palmar abduction 55 Palmar abduction 45 Radial abduction 50 Radial abduction 44 Opposition +10 Kapandji Opposition To the SF to P1 radial side Other: ?? Other: ? *Patient has a swan neck deformity and was verbally cued not to go into that deformity. Full flexion to DPC deficit WE/WF: 70/58?? EDEMA ?? Thumb Right Left ?? P1 IP P2 ?? P1 IP P2 Thumb 6.2 6.0 5.5 Thumb 6.4 5.9 5.0 Wrist crease: 15.9 Treatment provided: -Deferred MHP due to c/o edema post Halloween -Pulsed US to scar for pain and desensitization -Scar massage -PROM: gentle RAB, PAB, and MP flexion and composite flexion -Thumb PAB, MP flexion, serial opposition and thumb slide actively -Functional activities: pickler helper marbles, cone stacking, transfer of medium dowel from hand to hand,shower ring with TV antenna to encourage good thumb posture during use. Assessment: Jody continues to have sensitivity with scar. Her range and edema are improving. Plan: AROM, and continue with gentle PROM if needed. Consider applying tape over thumb scar to soften it. Goals: ?? Goal Status / Date Updated [...] objects such as coins and pills. Onging 01/05/2021 ?? LTG2 Patient will verbalize 2 joint protection techniques to decrease force to thumb joints. MET 12/30/2020 ?? LTG3 ?? New 12/15/2020 ?? Start time:13:05 End Time:13:55 documented in this encounter Plan of Treatment Not on file documented as of this encounter Visit Diagnoses Diagnosis Arthritis of carpometacarpal (CMC) joint of left thumb- Primary documented in this encounter Care Teams Canine Enforcement Officer Relationship Specialty Start Date End Date Melani Franklin DO [address] [place] [address] PCP - General Internal Medicine 10/05/20 documented as of this encounter
--- OUTSIDE RECORDS SUMMARY | 2024-02-21 16:24 | XMS_ITS | Encounter Summary ---
Author Organization [facility] Address [address] [place] [address] Phone Care Team Providers Care Side Framer Name Role Phone Melani Franklin DO Primary Care Provider Reason for Visit * Reason Comments OT Treatment * Consultation (Routine) - Closed Specialty Diagnoses / Procedures Referred By Contact Referred To Contact Occupational Therapy Diagnoses Arthritis of carpometacarpal (CMC) joint of left thumb Anurag Franklin MD Phone: tel:[phone] fax: [facility] (All Locations) Referral ID Status Reason Start Date Expiration Date V isits Requested Visits Authorized [id number] Closed Specialty Services Required 01/25/2021 02/24/2022 24 24 Encounter Details Date Type Department Care Team (Late st Contact Info) Description 02/07/2021 2:00 PM CHECKER/STOCKER Therapy [facility] Occupational Therapy [address] [place] [id number] [place] [address] [place] [address] Arthritis of carpometacarpal (CMC) joint of left [...] on file Legal Sex Female 12:36 PM CHECKER/STOCKER Gender Identity Female 12/10/2020 10:46 AM CDT Sexual Orientation Not on file documented as of this encounter Progress Notes * Khalida Carey, OT - 02/07/2021 2:00 PM CST [facility] Occupational Therapy Treatment Note Jody Mason [...] blocking splint for MP joint if needed?? 9 weeks post op Subjective:Patient voices that she is able put on her watch, angel luis earring and nylon stockings. Her thumb is sensitive to pressure of the broom with sweeping. Patient has trouble lifting heavy pots and pans. [] Mental health status discussed Details: Pain:0/10 pre and post session. Objective: Clinical Exam: Active Thumb Range of Motion ?? Right Left MP extension/ flexion 0/61 MP extension/ flexion 0 with verbal cue not to go into hyperextension/32 IP extension/flexion +/66 ) IP extension/flexion /62 Palmar abduction 55 Palmar abduction 37 Radial abduction 50 Radial abduction 40 Opposition +10 Kapandji Opposition To the SF MP 1 Other: ?? Other: ? EDEMA ?? Thumb Right Left ?? P1 IP P2 ?? P1 IP P2 Thumb 6.2 6.0 5.5 Thumb 6.7 6.3 5.4 STRENGTH Coremaker Supervisor Pinch Right Left Right Left Trial 1 55 39 Lateral 12 6 Trial 2 Tip to Tip 7 5 Trial 3 3- Point 9 3 Average Treatment provided: -MHP to left hand/thumb for tissue extensibility -Scar massage and soft tissue massage to adductor pollicis -PROM: gentle RAB, PAB, and MP flexion and composite flexion -Functional activities: picking machine operator helper marbles, health ball manipulation, making a necklace -Yellow therabar: S/P, wringing out motions to simulate wringing out a towel both directions. 20 reps -Yellow putty: fisting, dowel isometric hold and push -Ball lift (salas colored) from shelf to counter x 20 reps -Advanced HEP: scar massage, PROM: thumb MP and composite flexion, thumb stabilization, PAB, serialopposition and slide with hold at end range to SF MP. Added yellow putty (see scanned handout). -Instructed to switch directions with sweeping and to keep broom closed to her body, and apply force using proximal muscles and palm, not against the thumb. Assessment: Jody is using her thumb functional. She has difficulty lifting heavy things. Plan: Continue 1x/week for 2 more visits. Add biceps and triceps strengthening. Goals: ?? Goal Status / Date Updated [...] LTG3 ?? New 12/15/2020 ?? Start time 14:05 End Time:14:45 Khalida Carey OT/CHT KER/STOCKER documented in this encounter Plan of Treatment Scheduled Referrals Name Type Priority Associated Diagnoses Orde r Schedule Ambulatory referral order to Hand Therapy - Outpatient Referral Routine Arthritis of carpometacarpal (CMC) joint of left thumb Ordered: 01/25/2021 documented as of this encounter Visit Diagnoses Diagnosis Arthritis of carpometacarpal (CMC) joint of left thumb- Primary documented in this encounter Care Teams Side Framer Relationship Specialty Start Date End Date Melani Franklin DO [address] [facility] [address] [place] [address] PCP - General Internal Medicine 10/05/20 documented as of this encounter
--- OUTSIDE RECORDS SUMMARY | 2024-02-21 16:24 | XMS_ITS | Encounter Summary ---
Author Organization [facility] Address [address] [place] [address] Care Team Providers Care Telephone Operator Name Role Phone Melani Franklin Primary Care Provider [phone] Encounter Details Date Type Department Care Team (Latest Contact Info) Description 12/08/2020 8:32 AM CDT - 12/08/2020 2:02 PM CDT Hospital Encounter [facility] Operating Room [facility]) [address] [place] [address] Anurag Franklin MD [facility] [address] [place] [address] Discharge Disposition: Discharge to home or self [...] on file Legal Sex Female 12:36 PM FUR TANNER Gender Identity Female 12/10/2020 10:46 AM CDT Sexual Orientation Not on file documented as of this encounter Last Filed Vital Signs Vital Sign Reading Time Taken Comments Blood Pressure 95/57 12/08/2020 1:30 PM CDT Pulse 80 12/08/2020 1:30 PM CDT Temperature 36.5 ??C (97.7 ??F) 12/08/2020 12:07 PM C DT Respiratory Rate 16 12/08/2020 1:30 PM CDT Oxygen Saturation 97% 12/08/2020 1:25 PM CDT Inhaled Oxygen Concentration - - Weight 69.9 kg (154 lb) 11/26/2020 4:36 PM CDT Height 157.5 cm (5' 2 ) 11/26/2020 4:36 PM CDT Body Mass Index 28.17 11/26/2020 4:36 PM CDT documented in this encounter Discharge Diagnoses Diagnosis Unilateral primary osteoarthritis of first carpometacarpal joint, left hand - UNILATERAL PRIMARY OSTEOARTHRITIS OF FIRST CARPOMETACARPAL JOINT, LEFT HAND Essential (primary) hypertension - ESSENTIAL (PRIMARY) HYPERTENSION Unspecified essential hypertension Hyperlipidemia, unspecified - HYPERLIPIDEMIA, UNSPECIFIED Unspecified asthma, uncomplicated - UNSPECIFIED ASTHMA, UNCOMPLICATED intermodal dispatcher (current) use of non-steroidal anti-inflammatories (nsaid) - CRYSTAL MOUNTER (CURRENT) USE OF NON-STEROIDAL ANTI-INFLAMMATORIES (NSAID) Other prison (current) drug therapy - OTHER CRYSTAL MOUNTER (CURRENT) DRUG THERAPY Personal history of nicotine dependence - PERSONAL HISTORY OF NICOTINE DEPENDENCE documented in this encounter Discharge Instructions * Discharge Instructions* Adilene Navas RN - 11/11/2020 9:10 AM CDT POSTOPERATIVE INSTRUCTIONS - Dr. Franklin Follow-up Appointments Your first postoperative visit with Dr. Franklin is listed on the first page of your discharge instructions. Your post operative [facility] is [facility] at the [facility] [place] as Dr. Franklin is not available the following week. You will be scheduled to see [facility] one week post operatively. Dr. Franklin may send you directly to the [facility] after your first postoperative visit in his [...] sent to the outpatient pharmacy at the [facility]. ??? Do not take pain medication or [...] (Mon-Fri 8am-4:30pm) o Dr. Franklin's Nurse: KATHERYN NAVAS phone: [phone] ??? After hours/weekend (Emergencies Only; no medication refills) o [facility] Medical Exchange: [phone] or toll-free Perioperative Narcotic Considerations The Orthopedic hand surgeons of [facility] manage perioperative pain as wellas the pain after an acute injury. Our surgeons do not manage chronic pain (pain three months afterthe injury/surgery), and will refer patients seeking longer term care for their painful condition to a pain management service or their primary physician as those physicians typically establish long term care phlebotomist treatment relationships with patients. Following elective hand [...] a greater number of pain tablets to lastthe during the therapy period. Your surgeon may [...] be called in to your pharmacy if ???qiha-qhd-gehibud??? anti- inflammatory pain medication do not decrease the pain even when taken on a regular basis. These can be called in during the hours 9am to 4pm, during the workweek. 6) ???Alternative??? treatments such as acupuncture, meditation and biofeedback can all be used to decrease post-operative pain. The Orthopedic hand surgeons of [facility] want you to be as comfortable [...] cannot be sent through Care Everywhere. * [facility] PATHWAY TO EXCELLENT CARE AFTER SURGERY [...] Preoperative Evaluation Record Evaluation type/location: TPAP from [facility] Planned procedure site: [facility] CAM OR (Pod 4) Date: 11/30/20 [...] Hypertension + Hyperlipidemia Pertinent negatives: CAD ; AK ; CABG ; valvular heart disease; atrial [...] Patient instructions were provided electronically sent via Office Max. Patient verbalized understanding of preoperative plan. Blood [...] COVID19 testing to be performed on 12/06/20. [facility] will place the order for [...] (ELAVIL) 25 mg tablet 11/26/2020 08/16/20 -- Provider, MD Chayito cetirizine (ZyrTEC) 10 mg tablet 11/26/2020 -- -- Provider, MD Chayito cholestyramine (QUESTRAN) 4 gram packet 11/25/2020 08/22/20 -- Provider, MD Chayito escitalopram (LEXAPRO) 20 mg tablet 11/26/2020 09/08/20 -- Provider, MD Chayito glucosamine/chondr evans A sod (OSTEO BI-FLEX ORAL) 11/26/2020 -- -- Provider, MD Chayito lisinopriL (PRINIVIL,ZESTRIL) 10 mg tablet 11/26/2020 09/08/20 -- Provider, MD Chayito montelukast (SINGULAIR) 10 mg tablet 11/25/2020 -- -- Provider, MD Chayito naproxen (NAPROSYN) 500 mg tablet Past Month 08/22/20 -- Provider, MD Chayito Nortrel , 28, 1-35 mg-mcg per tablet 11/25/2020 08/16/20 -- Provider, MD Chayito SUMAtriptan (IMITREX) 100 mg tablet Past Month 10/26/20 -- Provider, MD Chayito turmeric root extract 500 mg capsule 11/26/2020 [...] naproxen (NAPROSYN) 500 mg tablet ??? Nortrel , 28, 1-35 mg-mcg per tablet ??? SUMAtriptan [...] (Left) Attending Surgeon: Anurag Franklin MD, M.Sc. [facility](C) Resident: 1. Chantal Lyman MD Supervisor Network Control Operators: Rahel Tatum RN Supervisor Network Control Operators Relief: Luli Milian RN Scrub Relief: Lauri [...] Implant Name Type Inv. Item Serial No. Professional Sports Scout Lot No. LRB No. Used Action [employer] AR-8978-CP INTERNALBRACE KIT HAND WRIST SET IMPLANT LIGAMENT AUGMENTATION - [id number] [employer] AR-8978-CP Internalbrace Kit Hand Wrist Set Implant Ligament Augmentation [employer] [id number] Left 1 Implanted Counts: All needle, sponge, and instrument counts were correct at the end of the case. Condition: The patient was transferred to the PACU in good condition. Attending participation: I was present and scrubbed for all crtical portions of the case including trapezium excision and the implantation of the internal brace device for adventism of stability tothe thumb base. I was [...] Resident - Assisting Anesthesiologist: Heriberto Gurrola MD COMMERCIAL PRODUCTION EDITOR: Lucio Wolfe CRNA Student Nurse Acoustical Carpenter: Xiomara Campo RN Supervisor Network Control Operators: Rahel Tatum RN Supervisor Network Control Operators Relief: Luli Milian RN Scrub Relief: Lauri [...] Implant Name Type Inv. Item Serial No. Professional Sports Scout Lot No. LRB No. Used Action [employer] AR-8978-CP INTERNALBRACE KIT HAND WRIST SET IMPLANT LIGAMENT AUGMENTATION - [id number] [employer] AR-8978-CP Internalbrace Kit Hand Wrist Set Implant Ligament Augmentation [employer] [id number] Left 1 Implanted Blood/Blood Products Transfused: 0 [...] Assessment and Planning CPAP Clinic Location: [facility] The night before your surgery: * [...] of surgery. * If having surgery at [facility], you may want to bring a credit card if you want to use our Mobile Pharmacy for your discharge medications. Mobile pharmacy is not available at [facility], the Orthopedic Center, or the [facility]. Outpatient Surgery: * You must have a [...] 5 days prior to surgery ??? Nortrel 35, 28, 1-35 mg-mcg per tablet Take morning [...] Planning Perioperative Nursing Note Telephone Preoperative Evaluation ([facility]) - TELEPHONE ONLY, NO PHYSICAL EXAM [...] information Information Provided on Healthcare Directives: No Communication/Machine Tool Dresser Needs Communication Needs: Contacts, Glasses Patient's Preferred Language: Qatari Does caregiver's language differ from patient's?: No Is an shipping and receiving supervisor needed? : No Assistive Devices/DME: Eyeglasses, Contacts Hearing - Right Ear: Functional Hearing - Left Ear: Functional Discharge Planning Type of Residence: Private residence Living Arrangements: Spouse/significant other Support Systems: Spouse/significant other Patient expects to be discharged to:: Private residence (, Tevin will be maintenance truck driver after surgery.) COVID Screening Covid-19 Screening [...] in a congregate living facility (ex. assisted living/halfway facility, correction, intermediate)?: No Have you tested positive for [...] 20 seconds. Use an alcohol- based hand turpentine distiller that contains at least 60% alcohol if [...] your insurance card, a photo ID (example: Frameman's License) and a method of payment for [...] Remove nail coverings, artificial nails and nail chilean. 2. Wash your hair and face with [...] Department: Sunday-Sunday from 8am-5pm with questions @ [phone]. COVID TESTING PLAN: Please note, the below is the Pre-Procedure COVID Testing Plan for the Center for Preoperative Assessment & Planning for Anesthesia. Surgeon's offices may require additional testing. If so, the surgeon's office will reach out to the patient to discuss further testing. Patient's COVID-19 vaccination status: Patient states that they are fully COVID vaccinated and provided the following vaccination information: Professional Sports Scout J[employer], Vaccination Date(s) 06/09/20. COVID Vaccination Record Card unable to be visually verified during assessment. Patient was instructed to bring their COVID Vaccination Record Card on the day of surgery for verification of their vaccination status. COVID Test Plan: COVID Test Request Placed in Epic to [facility]. HOLIDAY hours mayvary at testing site. Test to be performed on 12/06/20 at [facility] ([facility])[address] [place] [address], M-F 8- 4:30, Sat/Sun 8-12:30, Call once on site@[phone]. If you have COVID testing or should have COVID testing for your surgery/procedure, please read below section: If you need to reschedule your COVID test to a different location or if your surgery gets rescheduled, you MUST call [phone] Sunday-Sunday 8am-4:30pm to get your COVID testing rescheduled or your lab order will not be available at Testing Sites. COVID Testing is only valid for up to 96 hours prior to surgery date, unless otherwise specified. If you are unable to reach staff at the above phone number, please call the CPAP Staff at [phone]. This number cannot order a lab test, [...] least 20 seconds. Use an alcohol-based hand turpentine distiller that contains at least 60% alcohol if [...] for the most updated information. Information on [facility]: Please view [email or web address] (Patient & Visitor Information) for additional details regarding Advanced Directive forms, AWARE, directions, parking information, lodging, Internet access, dining and more. Information on [facility]: Please view [email or web address] (Patient and Visitor Information) for parking/directions and more. For MyChart information, to activate account or password recovery, please go to [email or web address] or call [phone] (toll-free: [phone]). Information for Suicide Prevention: National Suicide Prevention Lifeline (4-170- 893-EHOS (4872)). Surgery Times: For patients having surgery @ [facility] or [facility], if your surgeon's office has not notified you of your surgery time by NOON THE BUSINESS DAY BEFORE your surgery, please call [phone] and ask for your surgeon'soffice Dr. Franklin. documented in this encounter Plan [...] left thumb- Primary documented in this encounter Admitting Diagnoses Diagnosis [...] 9:31 AM CDT 30 mL/hr 30 mL/hr documented in this [...] Pain 1224 (Given - Provid er: Stephanie Barcenas, DONNA)1235 (Given - Provider: Stephanie Barcenas RN) HYDROmorphone [...] chloride 0.9% flush 0.5-20 mL 1 08/2020 sodium chloride 0.9% irrigation 1 documented in this encounter Care Teams Telephone Operator Relationship Specialty Start Date End Date Melani Franklin DO [address] [facility] [address] [place] [address] PCP - General Internal Medicine 10/05/20 documented as of this encounter
--- OUTSIDE RECORDS SUMMARY | 2024-02-21 16:24 | XMS_ITS | Encounter Summary ---
Author Organization [facility] Address [address] [place] [address] Phone Care Team Providers Care Home Theater Specialist Name Role Phone NoemiLinaa Linda MENARD Primary Care Provider [phone] Reason for Visit * Reason Comments OT Treatment * Consultation (Routine) - Closed Specialty Diagnoses / Procedures Referred By Contact Referred To Contact Occupational Therapy Diagnoses Arthritis of carpometacarpal (CMC) joint of left thumb Anurag Franklin MD Phone: tel:[phone] fax:[phone] [facility] (All Locations) Referral ID Status Reason Start Date Expiration Date V isits Requested Visits Authorized [id number] Closed Specialty Services Required 11/12/2020 12/12/2021 24 24 Encounter Details Date Type Department Care Team (Late st Contact Info) Description 12/29/2020 1:00 PM CDT Therapy [facility] Occupational Therapy [address] 1st [address] [place] [phone] [place] [address] [place] [address] Arthritis of carpometacarpal (CMC) joint of left [...] on file Legal Sex Female 12:36 PM GOLD LETTERER Gender Identity Female 12/10/2020 10:46 AM CDT Sexual Orientation Not on file documented as of this encounter Progress Notes * Khalida Carey, OT - 12/29/2020 1:00 PM CDT [facility] Occupational Therapy Treatment Note Jody [...] and therapist preference and patient's pain level 21 days post op Subjective: C/o pain along the scar and deeper to the scar. [] Mental health status discussed Details: Pain:2-5/10 Objective: Clinical Exam: Active Thumb Range of Motion ?? Right Left MP extension/ flexion 0/61 MP extension/ flexion 0 with verbal cue not to go into hyperextension/19 IP extension/flexion +/66 ) IP extension/flexion /31 IP flexion Palmar abduction 55 Palmar abduction 39 Radial abduction 50 Radial abduction 35 Opposition +10 Kapandji Opposition To the SF to P1 Other: ?? Other: ? *Patient has a swan neck deformity and was verbally cued not to go into that deformity. Full flexion to DPC deficit WE/WF similar to non- surgical side ?? EDEMA ?? Thumb Right Left ?? P1 IP P2 ?? P1 IP P2 Thumb 6.2 6.0 5.5 Thumb 6.7 6.1 5.3 Wrist crease: 15.9 Treatment provided: -MHP to decrease pain during AROM -Scar massage -Gentle soft tissue massage -Thumb PAB, MP flexion, serial opposition and thumb slide -Functional activities: picking table worker marbles. Discontinued due to slight hyperextension of thumb MP. Assessment: Jody has sensitivity along her scar and some pain underneath her scar. Her range is improving. Plan: AROM, and gentle PROM if needed. Goals: ?? Goal Status / Date Updated [...] objects such as coins and pills. Onging 12/30/2020 ?? LTG2 Patient will verbalize 2 joint protection techniques to decrease force to thumb joints. MET 12/30/2020 ?? LTG3 ?? New 12/15/2020 ?? Start time:13:00 End Time:13:50 documented in this encounter Plan of Treatment Not on file documented as of this encounter Visit Diagnoses Diagnosis Arthritis of carpometacarpal (CMC) joint of left thumb- Primary documented in this encounter Care Teams Home Theater Specialist Relationship Specialty Start Date End Date Melani Franklin DO [address] [facility] [address] [place] [address] PCP - General Internal Medicine 10/05/20 documented as of this encounter
--- OUTSIDE RECORDS SUMMARY | 2024-02-21 16:24 | XMS_ITS | Encounter Summary ---
Author Organization [facility] Address [address] [place] [address] Phone Care Team Providers Care Rn Ccu Name Role Phone Melani Franklin Primary Care Provider [phone] Reason for Referral * Diagnostic Imaging (Routine) - Closed Specialty Diagnoses / Procedures Referred By Contac t Referred To Contact Diagnoses Arthritis of carpometacarpal (CMC) joint of left thumb Procedures X-ray wrist left 3+ views Anurag Franklin MD Phone: tel: fax: [facility] Referral ID Status Reason Start Date Expiration Date Visits Re quested Visits Authorized [id number] Closed 02/24/2021 03/26/2022 1 1 TRONIC PREPRESS TECHNICIAN Reason for Visit * Reason Comments Follow-up Encounter Details Date Type Department Care Team (Latest Contact Info) Description 03/08/2021 8:20 AM ELECTRONIC PREPRESS TECHNICIAN Office Visit [facility] [address] [place] [address] [facility] 6th [place] [address] [place] [address] Anurag Franklin MD [address] [facility] [address] [place] [address] Arthritis of carpometacarpal (CMC) joint of left [...] on file Legal Sex Female 12:36 PM ELECTRONIC PREPRESS TECHNICIAN Gender Identity Female 12/10/2020 10:46 AM CDT Sexual Orientation Not on file documented as of this encounter Progress Notes * Anurag Franklin MD - 03/08/2021 8:20 AM CST Images from the original note were not included. ESTABLISHED PATIENT VISIT INTERIM HISTORY Jody Mason was seen in the office today. She is now 12 weeks out after basal joint reconstruction using internal brace. Preoperative pain caused by the arthritis is now completely resolved. She is very happy with this. Occasional clicking. Some difficulty using her rower and using elastic band training at home.. IMPRESSION/TREATMENT PLAN Who wound is still somewhat red in the incision. Minimal tenderness. Good thumb anti position and good thenar strength. See back at the one year wallace. Anurag Franklin M.D., MSc, FRCS(C) Professor [facility] TRONIC PREPRESS TECHNICIAN documented in this encounter Plan of Treatment Not on file documented as of this encounter Results * X-ray wrist left 3+ views (03/08/2021 8:39 AM ELECTRONIC PREPRESS TECHNICIAN) Anatomical Region Laterality Modality Upper Extremities, Wrist Left Compute d Radiography 03/08/2021 8:55 AM ELECTRONIC PREPRESS TECHNICIAN Impressions 03/08/2021 8:55 AM ELECTRONIC PREPRESS TECHNICIAN Left trapeziectomy and basal thumb reconstruction in expected position. Electronically signed by: Reji Linda M.D. Narrative 03/08/2021 8:55 AM ELECTRONIC PREPRESS TECHNICIAN XR WRIST LEFT 3 OR MORE VIEWS [...] position. Electronically signed by: Reji Linda M.D. us Anurag Franklin MD IMG XR PROCEDURES Final Resul t documented in this encounter Visit Diagnoses Diagnosis Arthritis of carpometacarpal (CMC) joint of left thumb- Primary Arthritis of carpometacarpal (CMC) joint of left thumb documented in this encounter Care Teams Rn Ccu Relationship Specialty Start Date End Date Melani Franklin DO [address] [place] [address] PCP - General Internal Medicine 10/05/20 documented as of this encounter
--- OUTSIDE RECORDS SUMMARY | 2024-02-21 16:24 | XMS_ITS | Encounter Summary ---
Author Organization [facility] Medical Group Address [address] [place] [address] Care Team Providers Care Manager Cancer Name Role Phone Melani Franklin Primary Care Provider [phone] Encounter Details Date Type Department Care Team (Late st Contact Info) Description 12/04/2020 Orders Only [facility] Testing Site - [facility]. 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 Date of Px/chemo/treatment/placement/transfer 12/08/2020 ?? Testing site patient will be sent to: [facility] ?? Date testing requested: 12/06/2020 ?? Testing: COVID-19 RNA ?? Is this the first COVID-19 test for this patient? Unknown ?? Does the patient currently work in a healthcare facility with direct patient contact? No ?? Is the patient a resident of a congregate care or living setting? No ?? Is the patient ? No ?? Please select the performing region: [facility] documented in this encounter Plan of Treatment Not on file documented as of this encounter Results * COVID-19 Coronavirus RNA Nasopharyngeal (12/06/2020 10:28 AM CDT) COVID-19 RNA Not Detected Not Detected [facility] Comment: Interpretive Data Synonyms for this test include: PCR and NAAT . ??Testing performed at [facility] Molecular Infectious Disease Laboratory. ??The Medic Trace Simplexa COVID-19 Direct assay is for in vitro diagnostic use under FDA emergency use authorization only. A negative RT-PCR result does not preclude infection with COVID-19 and should not be used as the sole basis for treatment or other patient management decisions. Additional sample types have been validated according to CLIA regulations. Current Interpretative Data was last reviewed April 08, 2020. First COVID-19 test? Unknown [facility] Employeed in healthcare? No [facility] status? No [facility] Group care resident? No [facility] Hospitalized? No [facility] Is patient in ICU? No [facility] Symptomatic as defined by CDC? No [facility] Nasopharyngeal 12/06/2020 10 :28 AM CDT 12/06/2020 6:15 PM CDT Narrative [facility] - 12/06/2020 10:53 PM CDT What is the reason for testing?->Screening prior to scheduled procedure or surgery (batch) us Anurag Franklin MD LAB MICROBIOLOGY - GENERAL OR DERABLES Final Result [facility] Department [place] [address] documented in this encounter Visit Diagnoses Diagnosis Pre-procedure lab exam- Primary Pre-procedural laboratory examination Pre-procedure lab exam Pre-procedural laboratory examination documented in this encounter Care Teams Manager Cancer Relationship Specialty Start Date End Date Melani Franklin DO [address] [facility] [address] [place], [place] [id number] PCP - General Internal Medicine 10/05/20 documented as of this encounter
--- OUTSIDE RECORDS SUMMARY | 2024-02-21 16:24 | XMS_ITS | Encounter Summary ---
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 Gender Identity Female 12/10/2020 10:46 AM CDT Sexual Orientation Not on file documented as of this encounter Medications at Time of Discharge escitalopram (LEXAPRO) 20 mg tabletIndications:An xiety with [...] Name Priority Date/Time Associated Diagnosis Comments XR TRANSFER OF OUTSIDE FILMS Routine 11/02/2020 10:53 AM CDT Diagnosis unknown documented in this encounter Results * XR Outside Reference (11/02/2020 10:53 AM CDT) Impressions [facility] - 11/02/2020 10:53 AM CDT These images are for Reference purposes only and have not been reviewed by [facility] Radiology. ??There will be no report generated by a [facility] Radiologist. Narrative [facility] - 11/02/2020 10:53 AM CDT EXAMINATION: ??Images For Reference Purposes Only us Anurag Franklin MD IMG XR PROCEDURES Final Resul t [facility] documented in this encounter Visit Diagnoses Not on filedocumented in this encounter Care Teams Pony Cylinder Press Operator Relationship Specialty Start Date End Date Melani Franklin DO [address] [facility] [address] [place] [address] PCP - General Internal Medicine 10/05/20 documented as of this encounter
--- OUTSIDE RECORDS SUMMARY | 2024-02-21 16:24 | XMS_ITS | Encounter Summary ---
Author Organization [facility] Address [address] [place] [address] Phone Care Team Providers Care Envelope Fold Operator Name Role Phone Melani Franklin DO Primary Care Provider [phone] Reason for Visit * Reason Comments OT Treatment * Consultation (Routine) - Closed Specialty Diagnoses / Procedures Referred By Contact Referred To Contact Occupational Therapy Diagnoses Arthritis of carpometacarpal (CMC) joint of left thumb Anurag Franklin MD Phone: tel:[phone] fax:[phone] [facility] (All Locations) Referral ID Status Reason Start Date Expiration Date V isits Requested Visits Authorized [id number] Closed Specialty Services Required 01/25/2021 02/24/2022 24 24 Encounter Details Date Type Department Care Team (Late st Contact Info) Description 02/21/2021 2:00 PM SAND HAULER Therapy [facility] Occupational Therapy [address] 1[address] [place] [id number] [place] [address] [place] [address] Arthritis of carpometacarpal (CMC) joint of left [...] on file Legal Sex Female 12:36 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 Subjective:Patient voices that her thumb is sore from cleaning the basement. I am trouble with zippers and cleaning pots and pans. [] Mental health status discussed Details: Pain:2/10 pre session at dorsal aspect of P1 of her thumb. Objective: Popping and grinding at thumb CMC noted with scar massage and AROM Clinical Exam: Active Thumb Range of Motion ?? Right Left MP extension/ flexion 0/61 MP extension/ flexion +5/32 IP extension/flexion +/66 ) IP extension/flexion /66 Palmar abduction 55 Palmar abduction 39 Radial abduction 50 Radial abduction 39 Opposition +10 Kapandji Opposition To the SF MP 1 Other: ?? Other: ? EDEMA ?? Thumb Right Left ?? P1 IP P2 ?? P1 IP P2 Thumb 6.2 6.0 5.5 Thumb 6.4 6.0 5.2 Treatment provided: -MHP to left hand/thumb for tissue extensibility -Scar massage and soft tissue massage with popping noted. -PROM: gentle PAB, and MP flexion and composite flexion with CMC supported -AROM: thumb PAB and first dorsal interossei x 20 -Functional activities:health ball manipulation (deferred due to pain), 2 point pinch ( C ) pick upof various sized beads, shower ring with -Red therabar: S/P, wringing out motions to simulate wringing out a towel into wrist extension. 20 reps -Yellow putty: fisting, dowel isometric hold and push into putty, 2 point tip to tip pull -Reviewed HEP: yellow putty (see scanned handout) push into putty with dowel and pulling into 4 directions, putty pull for simulated pulling up zippers, red theraband for shoulder scaption, triceps press and elbow curls. Assessment: Jody has no issues with today's session. She continued to have some popping in her thumb with scar massage and active motions. We focus on thumb stabilization exercises to address this. Plan: Patient returns to her surgeon on 03/08/21. She is knowledgeable of her HEP. Goals: ?? Goal Status / Date Updated [...] wash heavier pots and lopez without pain. ongoing ??03/08/21 Start time 46:05 End Time:14:50 Khalida Carey OT/CHT HAULER documented in this encounter Plan of Treatment Not on file documented as of this encounter Visit Diagnoses Diagnosis Arthritis of carpometacarpal (CMC) joint of left thumb- Primary documented in this encounter Care Teams Envelope Fold Operator Relationship Specialty Start Date End Date Melani Franklin DO [address] [facility] [address] [place] [address] PCP - General Internal Medicine 10/05/20 documented as of this encounter
--- OUTSIDE RECORDS SUMMARY | 2024-02-21 16:24 | XMS_ITS | Encounter Summary ---
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 ??Testing performed at [facility] Molecular Infectious Disease Laboratory. ??The [employer] Molecular Simplexa COVID-19 Direct assay is for in [...] April 08, 2020. First COVID-19 test? Unknown [facility] Employeed in healthcare? No [facility] status? No [facility] Group care resident? No [facility] Hospitalized? No [facility] Is patient in ICU? No [facility] Symptomatic as defined by CDC? No [facility] Nasopharyngeal 12/06/2020 10 :28 AM CDT 12/06/2020 6:15 PM CDT [facility]ative [facility] - 12/06/2020 10:53 PM CDT What is the reason for testing?->Screening prior to scheduled procedure or surgery (batch) Anurag Franklin MD LAB MICROBIOLOGY - GENERAL OR DERABLES Final Result [facility] Department [place] [address] documented in this encounter Visit Diagnoses Diagnosis Pre-procedure lab exam Pre-procedural laboratory examination documented in this encounter Care Teams Bag Maker Relationship Specialty Start Date End Date Melani Franklin DO [address] [place] [address] PCP - General Internal Medicine 10/05/20 documented as of this encounter
--- OUTSIDE RECORDS SUMMARY | 2024-02-21 16:24 | XMS_ITS | Encounter Summary ---
Author Organization [facility] Address [address] [place] [address] Phone Care Team Providers Care Perlite Grinder Name Role Phone Melani Franklin DO Primary Care Provider [phone] Reason for Referral * Consultation (Routine) - Closed Specialty Diagnoses / Procedures Referred By Contact Referred To Contact Occupational Therapy Diagnoses Arthritis of carpometacarpal (CMC) joint of left thumb Anurag Franklin MD Phone: tel: fax:[phone] [facility] (All Locations) Referral ID Status Reason Start Date Expiration Date V isits Requested Visits Authorized [id number] Closed Specialty Services Required 01/25/2021 02/24/2022 24 24 Question Answer Location provided for therapy services is: Patient requested/Patient preferred Please select the performing region: [facility] (All Locations) [[id number]] # of visits: 24 Comments Diagnosis: L Thumb CMC Joint Arthritis Surgery: Trapezium excision with internal brace placement Date of onset: Date of surgery: 12/08/20 ?? Frequency/Duration: 1 x week for 6 weeks ?? Next MD Visit: 6 weeks ?? OT/PT Evaluate and Treat: A/PROM thumb Strengthening of thenars, but no pinch strengthening for another 4-6 weeks ?? Orthosis Specifications: Discontinue hand based thumb spica but may use a dorsal blocking splint for MP joint if needed? From the office of Anurag Franklin MD ?? [facility] ?? Department of Orthopedic Surgery-Hand & Microsurgery Division ?? Office: [phone] ?? Please fax all OT/PT reports that require signature to [phone]. ?? All other OT/PT reports should be faxed to [phone] ?? 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 ESTABLISHED PATIENT VISIT INTERIM HISTORY Jody Mason was seen in the office today. She is now 6 weeks out after basal thumb joint reconstruction using internal brace. The thumb base is just a little bit sloppy but it anti poses nicely and she is pleased with the degree to which her thumb function is returned. Still weak. Needs to work on thenar strengthening but not yet pinch.. IMPRESSION/TREATMENT PLAN See back in six weeks. X-rays on arrival. Anurag Franklin M.D., MSc, FRCS(C) Professor [facility] Orthopedics PATIONAL THERAPY PROFESSOR documented in this encounter Plan of Treatment Scheduled Referrals Name Type Priority Associated Diagnoses Orde r Schedule Ambulatory referral order to Hand Therapy - Outpatient Referral Routine Arthritis of carpometacarpal (CMC) joint of left thumb Ordered: 01/25/2021 documented as of this encounter Visit Diagnoses Diagnosis Arthritis of carpometacarpal (CMC) joint of left thumb- Primary documented in this encounter Care Teams Perlite Grinder Relationship Specialty Start Date End Date Melani Franklin DO [address] [facility] [address] [place] [address] PCP - General Internal Medicine 10/05/20 documented as of this encounter
--- OUTSIDE RECORDS SUMMARY | 2024-02-21 16:24 | XMS_ITS | Encounter Summary ---
Author Organization [facility] Address [address] [place] [address] Phone Care Team Providers Care Tray Server Name Role Phone Melani Franklin Primary Care Provider [phone] Reason for Referral * Diagnostic Imaging (Routine) - Closed Specialty Diagnoses / Procedures Referred By Contac t Referred To Contact Diagnoses Arthritis of carpometacarpal (CMC) joint of left thumb Procedures X-ray wrist left 3+ views Anurag Franklin MD Phone: tel: fax: [facility] Referral ID Status Reason Start Date Expiration Date Visits Re quested Visits Authorized [id number] Closed 12/06/2021 01/05/2023 1 1 Reason for Visit * Reason Comments Follow-up Encounter Details Date Type Department Care Team (Latest Contact Info) Description 12/06/2021 12:00 PM CDT Office Visit [facility] Orthopaedic Surgery [address] [place] [address] 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 ESTABLISHED PATIENT VISIT INTERIM HISTORY Jody Mason returns to the office today. She is a year out from basal thumb joint arthroplasty on the left. Doing beautifully. Still little bit of a tendency for the thumb to hyperextend but her pain is gone and her strength is returned. IMPRESSION/TREATMENT PLAN/FOLLOW UP We are going to work on some splinting to restore thumb alignment. She will come back and see me in the future is the need arises. Anurag Franklin M.D., MSc, FRCS(C) Professor [facility] Orthopedics documented in this encounter Plan [...] reconstruction. Electronically signed by: Reji Linda M.D. us Anurag Franklin MD IMG XR PROCEDURES Final Resul t documented in this encounter Visit Diagnoses Diagnosis Arthritis of carpometacarpal (CMC) joint of left thumb- Primary Arthritis of carpometacarpal (CMC) joint of left thumb documented in this encounter Historical Medications * This list may reflect changes made after this encounter. lisinopril-hydro CHLOROthiazide (ZESTORETIC) 10-12.5 mg per tabletIndication s:hypertension Take 1 tablet by mouth every morning 10/13/2021 buPROPion XL (WELLBUTRIN XL) 150 mg 24 hr tabletIndication s:major depressive disorder Take 1 tablet (150 mg total) by mouth every morning 10/12/2021 biotin 1 mg tabletIndication s:Hair/skin health Take 1 tablet (1,000 mcg total) by mouth every morning albuterol HFA (PROVENTIL HFA,VENTOLIN HFA,PROAIR HFA) 90 mcg/actuation inhaler INHALE 2 PUFFS BY MOUTH EVERY 6 HOURS NEEDED FOR SHORTNESS OF BREATH 11/10/2021 omeprazole (PriLOSEC) 20 mg capsule TAKE 1 CAPSULE(20 MG) BY MOUTH DAILY(GINA ART) 06/08/2021 4 added in this encounter Care Teams Tray Server Relationship Specialty Start Date End Date Melani Franklin DO [address] [facility] [address] [place] [address] PCP - General Internal Medicine 10/05/20 documented as of this encounter
--- OUTSIDE RECORDS SUMMARY | 2024-02-21 16:24 | XMS_ITS | Encounter Summary ---
Author Organization [facility] Care Team Providers Care Global Cmo Name Role Phone Unavailable Primary Care Provider Unavailabl e Encounter Details Date Type Department Care Team (Latest Contact Info) Description 03/25/2010 8:11 AM AGILE COACH - 03/25/2010 12:45 PM AGILE COACH Hospital Encounter [facility] Richard Huff MD [address] [facility] [address] [place] [address] Encounter for fitting and adjustment of non-vascular catheter NEC Social History Tobacco Use Types Packs/Day Years Used Date Smoking Tobacco: Never Assessed Comments Unknown Sex and Gender Information Value Date Recorded Sex Assigned at Not on file Legal Sex Female 12:36 PM AGILE COACH Gender Identity Female 12/10/2020 10:46 AM CDT Sexual Orientation Not on file documented as of this encounter Plan of Treatment Not on file documented as of this encounter Visit Diagnoses Diagnosis Encounter for fitting and adjustment of non-vascular catheter NEC documented in this encounter
--- OUTSIDE RECORDS SUMMARY | 2024-02-21 16:28 | XMS_ITS | Encounter Summary ---
Author Organization [facility] Address [address] [place] [address] Care Team Providers Care Finish Repairer Name Role Phone Melani Franklin DO Primary Care Provider [phone] Encounter Details Date Type Department Care Team (Late st Contact Info) Description 01/02/2024 External Device Data [facility] ABSTRACTION Provider, Abstract NO ADDRESS ON FILE Social History Tobacco Use Types Packs/Day Years Used Date Smoking Tobacco: Former Cigarettes 1 10 0 03/05/1997 - 03/05/2007 Smokeless Tobacco: Never Alcohol Use Standard Drinks/Week Comments Yes 7 (1 standard drink = 0.6 oz pur e alcohol) Sex and Gender Information Value Date Recorded Sex Assigned at Female 11/16/2023 9:40 AM CDT Gender Identity Female 11/16/2023 9:40 AM CDT Sexual Orientation Not on file documented as of this encounter Plan of Treatment Upcoming Encounters Date Type Department Care Team (Late st Contact Info) Description 11/24/2024 9:30 AM CDT Office Visit [facility] Internal Medicine Medical [place] [address] [facility] [address] [facility] [address] [address] Melani Franklin DO [address] [facility] [address] [place] [address] documented as of this encounter Visit Diagnoses Not on filedocumented in this encounter Care Teams Finish Repairer Relationship Specialty Start Date End Date Melani Franklin DO [address] [facility] [address] [place] [address] PCP - General Internal Medicine 01/02/17 documented as of this encounter
--- OUTSIDE RECORDS SUMMARY | 2024-02-21 16:28 | XMS_ITS | Encounter Summary ---
Author Organization [facility] Address [address] [place] [address] Care Team Providers Care Insurance Defense Attorney Name Role Phone Melani Franklin DO Primary Care Provider [phone] Reason for Visit * Reason Comments Physical Encounter Details Date Type Department Care Team (Late st Contact Info) Description 10/29/2023 1:30 PM CDT Office Visit [facility] Internal Medicine Medical [place] [facility] [address] [address] Melani Franklin, [address] [place] [address] Routine general medical examination at a health care facility (Primary Dx); Benign hypertension; Pure hypercholesterolemia; Sedative, 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; Mild episode of recurrent major depressive disorder Social History Tobacco Use Types Packs/Day Years [...] Sign Reading Time Taken Comments Blood Pressure 118/68 10/29/2023 1:18 PM CDT Pulse 82 10/29/2023 1:18 PM CDT Temperature 36.3 ??C (97.3 ??F) 10/29/2023 1:18 PM CD T Respiratory Rate - - Oxygen Saturation 97% 10/29/2023 1:18 PM CDT Inhaled Oxygen Concentration - - Weight 57.6 kg (127 lb) 10/29/2023 1:18 PM CDT Height 157.5 cm (5' 2 ) 10/29/2023 1:18 PM CDT Body Mass Index 23.23 10/29/2023 1:18 PM CDT documented in this encounter Progress Notes * Melani Franklin, DO - 10/29/2023 1:40 PM CDT HISTORY OF PRESENT ILLNESS Jody Mason, a 53 y.o. female presents with a Chief Complaint of Physical Subjective Physical Pertinent negatives include no chest pain, no abdominal pain, no headaches and no shortness of breath. The medications, allergies, past medical history, family history, and social history are all reviewed and updated at this visit Has been on Ozempic for 2 mo, will be weaning off. Rare xanax and ambien use. Getting RFA for her cervical spondylosis. Went to a hormone specialist, now on E, P, and T pellet. 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 02/01/2022 Extrinsic asthma without complication 10/12/2021 Mild episode of recurrent major depressive disorder 06/24/2020 Benign hypertension 01/02/2017 Postcholecystectomy diarrhea 01/02/2017 Migraine with aura and without status migrainosus, not intractable 01/02/2017 Insomnia 01/02/2017 Current Outpatient Medications Medication Instructions albuterol sulfate 90 mcg/Actuation inhaler INHALE 2 PUFFS BY MOUTH EVERY 6 HOURS NEEDED FOR SHORTNESS OF BREATH ALPRAZolam (XANAX) 0.25 mg tablet TAKE 1 TO 2 TABLETS(0.25 TO 0.5 MG) BY MOUTH EVERY NIGHT NEEDED FOR ANXIETY OR INSOMNIA Biotin 1 mg Tablet Oral buPROPion HCL (WELLBUTRIN XL) 150 mg Extended Release 24 hour tablet TAKE 2 TABLETS(300 MG) BY MOUTH EVERY MORNING cetirizine (ZYRTEC) 10 mg, Oral, DAILY chlorhexidine gluconate 0.12 % Mouthwash clobetasoL (TEMOVATE) 0.05 % Solution Topical, TWO TIMES DAILY PRN escitalopram oxalate (LEXAPRO) 20 mg tablet TAKE 1 TABLET(20 MG) BY MOUTH DAILY ESTRADIOL ORAL Oral lisinopril-hydroCHLOROthiazide (ZESTORETIC) 10-12.5 mg tablet 1 Tablet, Oral, DAILY montelukast (SINGULAIR) 10 mg, Oral, TWO TIMES DAILY progesterone micronized (PROMETRIUM) 100 mg Capsule TAKE 1 CAPSULE BY MOUTH IN THE EVENING RESVERATROL ORAL Oral, DAILY testosterone 100 mg Pellet Implant turmeric root extract 500 mg Capsule 1 Capsule, Oral valACYclovir (VALTREX) 2,000 mg, Oral, TWO TIMES DAILY zolpidem (AMBIEN) 5 mg tablet TAKE 1 TO 2 TABLETS(5 TO 10 MG) BY MOUTH EVERY NIGHT NEEDED FOR INSOMNIA REVIEW OF SYSTEMS Review of Systems Constitutional: Negative for chills, fatigue and fever. HENT: Negative for congestion, hearing loss, sinus pressure and sore throat. Eyes: Negative for visual disturbance. Respiratory: Negative for chest tightness and shortness of breath. Cardiovascular: Negative for chest pain, palpitations and leg swelling. Gastrointestinal: Negative for abdominal pain, blood in stool, constipation, diarrhea, nausea and vomiting. Genitourinary: Negative for difficulty urinating, dysuria, frequency and hematuria. Musculoskeletal: Negative for joint swelling. Skin: Negative for rash. Neurological: Negative for dizziness, weakness, numbness and headaches. Psychiatric/Behavioral: Negative for dysphoric mood. The patient is not nervous/anxious. Objective PHYSICAL EXAM BP 118/68 (BP Location: Left arm) Pulse 82 Temp 97.3 ??F (36.3 ??C) Ht 5' 2 (1.575 m) Wt 57.6 kg (127 lb) SpO2 97% BMI 23.23 kg/m?? Physical Exam Constitutional: General: She is not in acute distress. Appearance: She is well-developed. She is not diaphoretic. HENT: Head: Normocephalic and atraumatic. Right Ear: Tympanic membrane normal. Left Ear: Tympanic membrane normal. Eyes: General: No scleral icterus. Pupils: Pupils are equal, round, and reactive to light. Neck: Thyroid: No thyromegaly. Cardiovascular: Rate and Rhythm: Normal rate and regular rhythm. Heart sounds: Normal heart sounds. No murmur heard. Pulmonary: Effort: Pulmonary effort is normal. No respiratory distress. Breath sounds: Normal breath sounds. No wheezing. Abdominal: General: Bowel sounds are normal. There is no distension. Palpations: Abdomen is soft. Tenderness: There is no abdominal tenderness. Musculoskeletal: General: No tenderness. Normal range of motion. Cervical back: Normal range of motion and neck supple. Lymphadenopathy: Cervical: No cervical adenopathy. Skin: General: Skin is warm and dry. Neurological: Mental Status: She is alert and oriented to person, place, and time. Psychiatric: Mood and Affect: Mood normal. Behavior: Behavior normal. Thought Content: Thought content normal. Judgment: Judgment normal. Procedures Assessment ASSESSMENT and PLAN: ICD-10-CM ICD-9-CM 1. Routine general medical examination at a [facility] care facility Z00.00 V70.0 2. Benign hypertension I10 401.1 HEMOGLOBIN A1C TSH REFLEXIVE LIPID PANEL COMPREHENSIVE METABOLIC PANEL CBC WITH DIFFERENTIAL 3. Pure hypercholesterolemia E78.00 272.0 HEMOGLOBIN A1C TSH REFLEXIVE LIPID PANEL COMPREHENSIVE METABOLIC PANEL CBC WITH DIFFERENTIAL 4. 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 Mild episode of recurrent major depressive disorder F33.0 296.31 Health maintenance issues were discussed with Jody Mason. This included colonoscopy, bone density, calcium replacement, exercise, diet, mammograms (scheduled), pap smears (dr smith 2023 neg), self breast exams, immunizations and screening labs. Try to wean Lexapro since her MDD is well controlled. Try to wean her BP meds, parameters discussed. Judiscious use of BZD and Ambien were discussed, she agrees.. No contraindication to HRT at this time. Recheck Lipids, last seemed to be an outlier with elevated TGs. * Melani Franklin DO - 10/29/2023 1:17 PM CDT Depression Screen Positive: PHQ-2 score >= 3 or PHQ-9 score >= 9 PHQ-2 Total: 0 (10/29/2023 1:17 PM) DEPRESSION PLAN OF CARE Her depression screen was negative. documented in this encounter Plan of Treatment Upcoming Encounters Date Type Department Care Team (Late st Contact Info) Description 11/24/2024 9:30 AM CDT Office Visit [facility] Internal Medicine Medical [place] [address] [address] Noemi Melani Linda, [address] [place] [address] documented as of this encounter Procedures Procedure Name Priority Date/Time Associated Diagnosis Comments TSH REFLEXIVE Routine 11/27/2023 9:24 AM CDT Benign hypertension Pure hypercholesterolemia CBC WITH DIFFERENTIAL Routine 11/27/2023 9:24 AM CDT Benign hypertension Pure hypercholesterolemia HEMOGLOBIN A1C Routine 11/27/2023 9:24 AM CDT Benign hypertension Pure hypercholesterolemia LIPID PANEL Routine 11/27/2023 9:24 AM CDT Benign hypertension Pure hypercholesterolemia COMPREHENSIVE METABOLIC PANEL Routine 11/27/2023 9:24 AM CDT Benign hypertension Pure hypercholesterolemia documented in this encounter Results * (ABNORMAL) CBC WITH DIFFERENTIAL (11/27/2023 9:24 AM CDT) WBC 7.0 3.8 - 10.8 Thousand/ uL [facility] RBC 4.15 3.80 - 5.10 Million/u L [facility] HEMOGLOBIN 13.9 11.7 - 15.5 g/dL [facility] HEMATOCRIT 42.9 35.0 - 45.0 % [facility] MCV 103.4(H) 80.0 - 100.0 fL [facility] MCH 33.5(H) 27.0 - 33.0 pg [facility] MCHC 32.4 32.0 - 36.0 g/dL [facility] RDW 11.9 11.0 - 15.0 % [facility] PLATELETS 215 140 - 400 Thousand/ uL [facility] MPV 11.7 7.5 - 12.5 fL [facility] NEUTROPHIL ABSOLUTE 4,774 1,500 - 7,800 cells/uL [facility] LYMPHOCYTE ABSOLUTE 1,708 850 - 3,900 cells/uL [facility] MONOCYTE ABSOLUTE 434 200 - 950 cells/uL [facility] EOSINOPHIL ABSOLUTE 63 15 - 500 cells/uL [facility] BASOPHILS ABSOLUTE 21 0 - 200 cells/uL [facility] NEUTROPHIL 68.2 % [facility] LYMPHOCYTES 24.4 % [facility] MONOCYTE 6.2 % [facility] EOSINOPHILS 0.9 % [facility] BASOPHILS 0.3 % [facility] Comment: FASTING:YES FASTING: YES Test Performed at: [facility] [address] [place] ??[phone] Carlos Leiva Blood 11/27/2023 9:24 AM CDT 11/27/2023 9:24 AM CDT Melani Franklin DO HEMATOLOGY ORDERABLE S [facility] [phone] [place] [address] [place] [address] * COMPREHENSIVE METABOLIC PANEL (11/27/2023 9:24 AM CDT) GLUCOSE 87 65 - 99 mg/dL [facility] Comment: ? Fasting reference interval BUN 12 7 - 25 mg/dL [facility] CREATININE 0.65 0.50 - 1.03 mg/dL [facility] GFR 105 > OR = 60 mL/min/1. 73m2 [facility] BUN/CREAT RATIO SEE NOTE: (calc) [facility] Comment: ?? Not Reported: BUN and Creatinine are within ?? reference range. ? SODIUM 139 135 - 146 mmol/L [facility] POTASSIUM 4.4 3.5 - 5.3 mmol/L [facility] CHLORIDE 105 98 - 110 mmol/L [facility] CO2 28 20 - 32 mmol/L [facility] CALCIUM 9.5 8.6 - 10.4 mg/dL [facility] TOTAL PROTEIN 6.6 6.1 - 8.1 g/dL [facility] ALBUMIN 4.5 3.6 - 5.1 g/dL [facility] GLOBULIN 2.1 1.9 - 3.7 g/dL (calc) [facility] ALBUMIN/GLOBULIN RATIO 2.1 1.0 - 2.5 (calc) [facility] BILIRUBIN TOTAL 0.6 0.2 - 1.2 mg/dL [facility] ALKALINE PHOSPHATASE 70 37 - 153 U/L [facility] AST 16 10 - 35 U/L [facility] ALT 14 6 - 29 U/L [facility] Comment: FASTING:YES FASTING: YES Test Performed at: [place] [address] [place] ??[phone] [facility] Blood 11/27/2023 9:24 AM CDT 11/27/2023 9:24 AM CDT Melani Franklin DO CHEMISTRY ORDERABLES [facility] [phone] [place] [address] [place] [phone] * (ABNORMAL) LIPID PANEL (11/27/2023 9:24 AM CDT) CHOLESTEROL 283(H) <200 mg/dL [facility] HDL 41(L) > OR = 50 mg/dL [facility] TRIGLYCERIDE 250(H) <150 mg/dL [facility] Comment: If a non-fasting specimen was collected, consider repeat triglyceride testing on a fasting specimen if clinically indicated. Esmer et al. J. of Clin. Lipidol. 2015;9:129-169. LDL CALCULATED 197(H) mg/dL (calc) [facility] Comment: LDL-C levels > or = 190 mg/dL may indicate familial hypercholesterolemia (FH). Clinical assessment and measurement of blood lipid levels should be considered for all first degree relatives of patients with an FH diagnosis. LDL Cholesterol (LDL-C) levels > or = 300 mg/dL may indicate homozygous familial hypercholesterolemia (HoFH). Untreated, these extremely high LDL-C levels can result in premature CV events and mortality. Patients should be identified early and provided appropriate interventions to reduce the cumulative LDL-C burden from . For questions about testing for familial hypercholesterolemia, please call [facility] at [phone]. Esmer Moreno, et al. J National Lipid Association Recommendations for Patient-Centered Management of Dyslipidemia: Part 1 Journal of Clinical Lipidology 2015;9(2), 129-169. Livia Holcomb. et al. (2014). Homozygous familial hypercholesterolaemia: new insights and guidance for clinicians to improve detection and clinical management. Heart Journal, 35(32), 0117-7523. Reference range: <100 Desirable range <100 mg/dL for primary prevention; ?? <70 mg/dL for patients with CHD or diabetic patients with > or = 2 CHD risk factors. LDL-C is now calculated using the Anurag-Breana calculation, which is a validated novel method providing better accuracy than the Friedewald equation in the estimation of LDL-C. Anurag SS et al. DAVIS. 2013;310(19): 6331-0098 (http://education.Primesport/faq/YNQ683) CHOL/HDL RATIO 6.9(H) <5.0 (calc) [facility] NON-HDL CHOLESTEROL 242(H) <130 mg/dL (calc) [facility] Comment: Non-HDL level > or = 220 is very high and may indicate genetic familial hypercholesterolemia (FH). Clinical assessment and measurement of blood lipid levels should be considered for all first-degree relatives of patients with an FH diagnosis. For patients with diabetes plus 1 major ASCVD risk factor, treating to a non-HDL-C goal of <100 mg/dL (LDL-C of <70 mg/dL) is considered a therapeutic option. Test Performed at: [facility] [address] [place] ??[phone] Carlos Leiva Blood 11/27/2023 9:24 AM CDT 11/27/2023 9:24 AM CDT Melani Franklin DO CHEMISTRY ORDERABLES [facility] [phone] [place] [address] [place] [address] * TSH REFLEXIVE (11/27/2023 9:24 AM CDT) Pathologist [facility] TSH 1.38 mIU/L [facility] Comment: ?Reference Range ?> or = 20 Years ??0.40-4.50 ? Ranges ?First trimester ?0.26-2.66 ?Second trimester ?? 0.55-2.73 ?Third trimester ?0.43-2.91 FASTING:YES FASTING: YES Test Performed at: [place] [address] [place] ??[phone] Carlos Leiva Blood 11/27/2023 9:24 AM CDT 11/27/2023 9:24 AM CDT Melani Franklin DO CHEMISTRY ORDERABLES Performing Organization Address [facility] Code Phone Number [facility] [phone] [place] [address] [place] [phone] * HEMOGLOBIN A1C (11/27/2023 9:24 AM CDT) Pathologist [facility] HEMOGLOBIN A1C 4.8 <5.7 % of total Hgb [facility] Comment: For the purpose of screening for the presence of diabetes: <5.7% ? Consistent with the absence of diabetes 5.7-6.4% ?Consistent with increased risk for diabetes ?(prediabetes) > or =6.5% ??Consistent with diabetes This assay result is consistent with a decreased risk of diabetes. Currently, no consensus exists regarding use of hemoglobin A1c for diagnosis of diabetes in children. According to [place] Diabetes Association (ADA) guidelines, hemoglobin A1c <7.0% represents optimal control in non- diabetic patients. Different metrics may apply to specific patient populations. Standards of Medical Care in Diabetes(ADA). ?? ESTIMATED AVERAGE GLUCOSE (MG/DL) 91 mg/dL [facility] ESTIMATED AVERAGE GLUCOSE (MMOL/L) 5.0 mmol/L [facility] Comment: ? This test was performed on the Favian ced c503 platform. Effective 05/21/23, a change in test platforms from the [employer] to the [employer] ced c503 may have shifted HbA1c results compared to historical results. Based on laboratory validation testing conducted at [facility], the Favian platform relative to the [employer] platform had an average increase in HbA1c value of < or = 0.3%. This difference is within accepted variability established by the National Glycohemoglobin Standardization Program. Note that not all individuals will have had a shift in their results and direct comparisons between historical and current results for testing conducted on different platforms is not recommended. 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
--- OUTSIDE RECORDS SUMMARY | 2024-02-21 16:28 | XMS_ITS | Encounter Summary ---
Author Organization [facility] Address [address] [place] [address] Care Team Providers Care Welfare Investigator Name Role Phone Melani Franklin DO Primary Care Provider [phone] Reason for Visit * Reason Onset Date Comments RFA CONFIRMATION CALL 10/16/2023 Encounter Details Date Type Department Care Team (Late st Contact Info) Description 10/16/2023 Telephone [facility] [address] [facility] [place] [address] Sukhjinder Killian RN RFA CONFIRMATION CALL Social History Tobacco Use Types Packs/Day Years [...] encounter Miscellaneous Notes * Telephone Encounter - Sukhjinder Killian RN - 10/16/2023 1:35 PM CDT Spoke to patient re: upcoming RFA . Instructed to arrive 1 hour prior to appt and must have family member/friend to drive home afterwards. Recommended to eat light breakfast. Denies being on abx/steroids. documented in this encounter Plan of Treatment Upcoming Encounters Date Type Department Care Team (Late Contact Info) Description 11/24/2024 9:30 AM CDT Office Visit [facility] Internal Medicine Medical [place] [address] [address] Melani Franklin DO [address] [place] [address] documented as of this encounter Visit Diagnoses Not on filedocumented in this encounter Care Teams Welfare Investigator Relationship Specialty Start Date End Date Melani Franklin DO [address] [place] [address] PCP - General Internal Medicine 01/02/17 documented as of this encounter
--- OUTSIDE RECORDS SUMMARY | 2024-02-21 16:28 | XMS_ITS | Encounter Summary ---
Author Organization [facility] Address [address] [place] [address] Care Team Providers Care Director Of Academic Name Role Phone Melani Franklin Linda MENARD Primary Care Provider [phone] Reason for Referral * Outpatient Services (Routine) - Closed Specialty Diagnoses / Procedures Referred By Tyrone baxter Referred To Contact Diagnoses Cervical spondylosis without myelopathy Procedures RADIOFREQUENCY - THERMAL MD DSTR NROLYTC AGNT PARVERTEB FCT SNGL CRVCL/THORA MD DSTR NROLYTC AGNT PARVERTEB FCT ADDL CRVCL/THORA Essie Eden NP [address] [place] [id number] Referral ID Status Reason Start Date Expiration Date Visits Re quested Visits Authorized [id number] Closed 10/22/2023 01/20/2024 1 1 Reason for Visit * Outpatient Services (Routine) - Closed Specialty Diagnoses / Procedures Referred By Tyrone baxter Referred To Contact Diagnoses Cervical spondylosis without myelopathy Procedures RADIOFREQUENCY - THERMAL MD DSTR NROLYTC AGNT PARVERTEB FCT SNGL CRVCL/THORA MD DSTR NROLYTC AGNT PARVERTEB FCT ADDL CRVCL/THORA Essie Eden NP [address] [place] [id number] Referral ID Status Reason Start Date Expiration Date Visits Re quested Visits Authorized [id number] Closed 10/22/2023 01/20/2024 1 1 Encounter Details Date Type Department Care Team (Late st Contact Info) Description 10/22/2023 9:33 AM CDT - 10/22/2023 11:59 PM CDT Hospital Encounter [facility] Imaging Services [facility] [address] [place] [address] [place] [address] [facility] [address] [place] [address] Discharge Disposition: Home or Self Care Social [...] Sign Reading Time Taken Comments Blood Pressure 145/95 10/22/2023 10:31 AM CDT Pulse 73 10/22/2023 10:31 AM CDT Temperature - - Respiratory Rate 18 10/22/2023 10:31 AM CDT Oxygen Saturation 99% 10/22/2023 10:31 AM CDT Inhaled Oxygen Concentration - - Weight - - Height - - Body Mass Index - - documented in this encounter Discharge Instructions * Discharge Instructions* Rahel Gutierrez RN - 10/22/2023 9:[address] [facility] [place] Discharge Instructions Office [email or web address] is the most effective way to communicate with [facility] and we would like you to use [email or web address] to communicate about your injection as well. Dr. Hodges would like you to have a follow up visit in office in 6 weeks, which can be scheduled prior to your discharge. Physical Therapy may be resumed 48 hours after the procedure. Please ask about any specific physical therapy questions. This procedure causes inflammation and can produce, what some patients describe as a sunburn feeling on the inside. This will subside, usually within 5-7 days. Applying ice can reduce this sensation, for 15 minutes of every hour. You may actually notice your pain increase in the next few days following the procedure, this is normal. Minimal drainage from the injection is also expected. However,if this continues for more than a couple of days or drainage increases or begins to change color, notify the doctor [phone]. For the first 2 weeks you will have days with minimal pain and then days with pain, this is normal and is a result of the nerves pain signal starting to be disrupted. By the end of week 3 you will have more good days than bad, and by the end of week 4 the pain signal is disrupted and your pain should be relieved significantly. You may use all of the things you normally do, to help relieve your pain on the days the pain occurs. If you routinely need antibiotic prophylaxis please continue these as prescribed by your primary care physician. Activity: No driving the day of the injection. If you receive any oral medication prior to your injection, you may not drive, operate machinery, make important decisions, or place yourself in potentially unsafe situations for the next 12 hours, as you may have temporary memory loss. You may feel sleepy and should rest until you are more awake and gradually resume normal activity. Avoid vigorous physical activity for 48 hours after your injection. Do not lift anything greater than 10 pounds, a full gallon of milk, for 48 hours. You may perform moderate exercise as tolerated, avoid excessive bending or twisting. Diet: You may resume your normal diet today. If you are a diabetic and received a steroid injection, you may have a spike in your blood sugar. Monitor your blood sugar, and if you're blood sugar is higher than 200, call your PCP for instructions. A high blood sugar may persist for up to 3-4 days after the procedure. Comfort Measures: Remove Band-Aid after 4-6 hours, remove dressing after 8 hours. Some bleeding/spotting is expected. You may apply ice to the injection area for 20 minutes intervals up to six times per day. After the first week you may alternate with ice and heat You may take your usual medications as directed by your doctor. You may take Tylenol 1000 milligram every 6 hours as needed for pain. You may take ibuprofen 400 milligram every 4 hours as needed for pain (if no contraindication per your assistant front office manager/c.o.d. clerk/PCP) Bath, showers, water activities: Do not soak in any kind of water for the next 48 hours. This will include bathtub, hot tub, or swimming pool, etc. You may shower 6 hours after the procedure. Common injection side effects: You may experience facial flushing, sleeplessness, restlessness, appetite changes after receiving steroid injection. These symptoms can last for one to four days. You may experience increased pain after numbing agent wears off. You may have slightly red, itchy skin at the site of injection. You may feel soreness, increase pain, muscle spasms at the injection site for 24 to 48 hours after your injection due to trauma of the injection itself. Complications: Difficulty breathing, chest pain, shortness of breath, or any other life- threatening condition, call 911 or go to the nearest emergency room immediately! If you develop any of the following complications call the pain clinic. For after hours, call 911 or go to the nearest emergency department. Numbness, weakness or tingling in the arms (cervical procedure) or legs (lumbar procedure) that is new and last for more than 24 hours. Fever or temperature greater than 101 degrees Nausea, new or unusually severe headache and/or neck stiffness Difficulty urinating or holding your urine that is new after procedure. Bleeding or drainage from the injection site that is more than half teaspoon. Unusually severe swelling or redness around the injection site documented in this encounter Medications at Time of Discharge Medication Sig Dispensed Refills Start Date End Date chlorhexidine gluconate 0.12 % Mouthwash 10/02/2023 ALPRAZolam (XANAX) 0.25 mg tabletIndications:Insom adis, unspecified type TAKE 1 TO 2 TABLETS(0.25 TO 0.5 MG) BY MOUTH EVERY NIGHT NEEDED FOR ANXIETY OR INSOMNIA 30 Tablet 1 10/08/2023 escitalopram oxalate (LEXAPRO) 20 mg tabletIndications:Mild episode of recurrent major depressive disorder TAKE 1 TABLET(20 MG) BY MOUTH DAILY 100 Tablet 1 06/05/2023 zolpidem (AMBIEN) 5 mg tabletIndications:Insom adis, unspecified type TAKE 1 TO 2 TABLETS(5 TO 10 MG) BY MOUTH EVERY NIGHT NEEDED FOR INSOMNIA 30 Tablet 5 02/14/2023 progesterone micronized (PROMETRIUM) 100 mg Capsule TAKE 1 CAPSULE BY MOUTH IN THE EVENING 09/13/2022 ESTRADIOL ORAL Take by mouth. testosterone 100 mg Pellet by Implant route. clobetasoL (TEMOVATE) 0.05 % Solution Apply to affected area 2 times daily as needed for Other (See Comment) (dermatitis). 50 mL 3 10/17/2022 lisinopril-hydroCHLOROt hiazide (ZESTORETIC) 10-12.5 mg tablet TAKE 1 TABLET BY MOUTH DAILY 90 Tablet 3 10/15/2022 valACYclovir (VALTREX) 1 gram tabletIndications:Cold sore Take 2 Tablets by mouth 2 times daily. 4 Tablet 3 08/02/2022 turmeric root extract 500 mg Capsule Take 1 Capsule by mouth. albuterol sulfate 90 mcg/Actuation inhalerIndications:Mild intermittent extrinsic asthma without complication INHALE 2 PUFFS BY MOUTH EVERY 6 HOURS NEEDED FOR SHORTNESS OF BREATH 8.5 Gram 11/10/2021 Biotin 1 mg Tablet Take by mouth. cetirizine (ZyrTEC) 10 mg tablet Take 10 mg by mouth daily. RESVERATROL ORAL Take by mouth daily. buPROPion HCL (WELLBUTRIN XL) 150 mg Extended Release 24 hour tabletIndications:Mild episode of recurrent major depressive disorder,NAOMI (generalized anxiety disorder) TAKE 2 TABLETS(300 MG) BY MOUTH EVERY MORNING 200 Tablet 1 04/08/2023 01/21/2024 montelukast (SINGULAIR) 10 mg tabletIndications:Mild intermittent extrinsic asthma without complication Take 1 Tablet (10 mg) by mouth 2 times daily. 180 Tablet 3 10/17/2022 01/14/2024 documented as of this encounter H&P Notes * Aj Hodges MD - 10/22/2023 10:30 AM CDT [facility] PROCEDURE H&P CC: chronic neck pain Jody Mason is an 53 y.o. female who presents with cervical spondylosis of Right C4-C5 and C5-C6, here for RFA procedure. HPI is unchanged from last office visit. Previous RFA at similar levels provided greater than 50% pain relief and improvement in functionality for more than 6 months. Past Medical History: Diagnosis Date Anxiety Arthritis 5 years Asthma in the past Benign hypertension 01/02/2017 Depression Last year GERD (gastroesophageal reflux disease) Hyperlipidemia Insomnia 01/02/2017 Migraine with aura and without status migrainosus, not intractable 01/02/2017 Postcholecystectomy diarrhea 01/02/2017 Past Surgical History: Procedure Laterality Date HX ABDOMINOPLASTY HX BILIARY DRAINAGE CATHETER PLACEMENT W/ BILE DUCT TUBE CHANGE HX BREAST AUGMENTATION HX SECTION 2097 and 2010 HX CHOLECYSTECTOMY 2009 HX COCCYGECTOMY LAP CHOLECYSTECTOMY MD COLONOSCOPY FLX DX W/COLLJ SPEC WHEN PFRMD N/A 08/26/2020 COLONOSCOPY performed by Barrington Bueno MD at [facility] Allergies Allergen Reactions Morphine Headache Trazodone Other (See Comments) Nightmares Current Outpatient Medications Medication Sig Dispense Refill ALPRAZolam (XANAX) 0.25 mg tablet TAKE 1 TO 2 TABLETS(0.25 TO 0.5 MG) BY MOUTH EVERY NIGHT NEEDED FOR ANXIETY OR INSOMNIA 30 Tablet 1 buPROPion HCL (WELLBUTRIN XL) 150 mg Extended Release 24 hour tablet TAKE 2 TABLETS(300 MG) BY MOUTH EVERY MORNING 200 Tablet 1 montelukast (SINGULAIR) 10 mg tablet Take 1 Tablet (10 mg) by mouth 2 times daily. 180 Tablet 3 lisinopril-hydroCHLOROthiazide (ZESTORETIC) 10-12.5 mg tablet TAKE 1 TABLET BY MOUTH DAILY 90 Tablet 3 escitalopram oxalate (LEXAPRO) 20 mg tablet TAKE 1 TABLET(20 MG) BY MOUTH DAILY 100 Tablet 1 zolpidem (AMBIEN) 5 mg tablet TAKE 1 TO 2 TABLETS(5 TO 10 MG) BY MOUTH EVERY NIGHT NEEDED FOR INSOMNIA 30 Tablet 5 cyclobenzaprine (FLEXERIL) 10 mg tablet Take 1 Tablet (10 mg) by mouth 3 times daily as needed for Spasm. 30 Tablet 0 progesterone micronized (PROMETRIUM) 100 mg Capsule TAKE 1 CAPSULE BY MOUTH IN THE EVENING ESTRADIOL ORAL Take by mouth. testosterone 100 mg Pellet by Implant route. clobetasoL (TEMOVATE) 0.05 % Solution Apply to affected area 2 times daily as needed for Other (SeeComment) (dermatitis). 50 mL 3 naproxen (NAPROSYN) 500 mg tablet Take 1 Tablet (500 mg) by mouth 2 times daily. 180 Tablet 0 valACYclovir (VALTREX) 1 gram tablet Take 2 Tablets by mouth 2 times daily. 4 Tablet 3 omeprazole (PriLOSEC) 20 mg Capsule, Delayed Release(E.C.) TAKE ONE CAPSULE BY MOUTH DAILY 90 Capsule 3 turmeric root extract 500 mg Capsule Take 1 Capsule by mouth. albuterol sulfate 90 mcg/Actuation inhaler INHALE 2 PUFFS BY MOUTH EVERY 6 HOURS NEEDED FOR SHORTNESS OF BREATH 8.5 Gram 0 Biotin 1 mg Tablet Take by mouth. SUMAtriptan (IMITREX) 100 mg tablet TAKE 1 TABLET BY MOUTH AT ONSET OF MIGRAINE. MAY REPEAT AFTER 2HOURS IF HEADACHE RETURNS. NOT TO EXCEED 2 TABLETS IN 24 HOURS 27 Tablet 3 glucosamine/chondr evans A sod (OSTEO BI-FLEX ORAL) Take by mouth daily. cetirizine (ZyrTEC) 10 mg tablet Take 10 mg by mouth daily. RESVERATROL ORAL Take by mouth daily. COLLAGEN MISC by Mis.(Non-Drug; Combo Route) route daily. Current Facility-Administered Medications Medication Dose Route Frequency Provider Last Rate Last Admin [COMPLETED] dexAMETHasone (PF) (DECADRON) injection 10 mg 10 mg See Admin Instructions intra-proc ONE time Essie Eden NP 10 mg at 10/22/23 1010 [COMPLETED] lidocaine PF 1% (XYLOCAINE MPF) injection 0-10 mL 0-10 mL Infiltration intra-proc ONE time Essie Eden NP 10 mL at 10/22/23 1010 [COMPLETED] lidocaine PF 2% (XYLOCAINE MPF) injection 0-5 mL 0-5 mL See Admin Instructions intra-proc ONE time Essie Eden NP 5 mL at 10/22/23 1009 lidocaine (XYLOCAINE MPF) 20 mg/mL (2%) cardiac injection 100 mg 5 mL See Admin Instructions intra-proc ONE time Aj Hodges MD ROS negative for all other systems except as in HPI BP (!) 145/95 Pulse 73 Resp 18 SpO2 99% General: NAD Lungs: CTAB Heart: NSR, well perfused ext Abdomen: Soft, NT Extremities: Well perfused, moving all ext Neurologic: CN 2-12 grossly normal, AAO x 3 Psychiatric: appropriate Assessment and Plan: 1. Discussed the risk of RFA procedure. The patient understands the risks, any and all questions were answered to the patient's satisfaction. We will proceed with RFA procedure and a procedure note will be dictated separately. 2. Follow up with [facility] in 4-6 weeks Aj Hodges MD Anesthesiology and Pain Management documented in this encounter OR Notes * Operative Report - Aj Hodges MD - 10/22/2023 10:30 AM CDT PATIENT NAME: Jody Mason PATIENT DATE OF SURGERY: 10/22/2023 TITLE OF PROCEDURE: Cervical Radiofrequency Denervation of the Medial Branch Nerves under fluoroscopic guidance INDICATION: Jody Mason's pain is facet joint (z-joint) mediated disease that is aggravated by hyperextension, rotation or lateral bending. This was confirmed by provocative testing. Greater than 80% pain relief was obtained by the first diagnostic block and/or greater than 50% pain relief was obtained by radiofrequency ablation of these nerves. LEVELS and MEDIAL BRANCH NERVE TREATED: C4-C5 (MBN C4, MBN C5) and C5-C6 (MBN C5, MBN C6) SIDE: Right PREOPERATIVE DIAGNOSES: Cervical Spondylosis POSTOPERATIVE DIAGNOSES: Same ANESTHESIA: Local anesthesia DESCRIPTION OF OPERATIVE PROCEDURE: Informed consent was obtained. The patient was brought to the procedure room and they positioned themselves to their comfort and optimal positioning for procedure (Prone). Time-out was conducted withall members of the care team. Standard ASA monitors were placed. Standard prep and drape were performed. The appropriate level of the cervical spine was identified under AP fluoroscopy. Superficial anesthesia was provided by 1 mL of 1% Lidocaine using a 1.5 inch 25 gauge hypodermic needle. Following this, a 100 mm, 20 gauge, curved radiofrequency needle with a 10 mm active tip was guided to a point over the center of the articular pillars at each level using both AP and lateral fluoroscopic projections. Motor stimulation at 2Hz was performed with no evidence of distal muscle contraction at each level, but excellent multifidus contraction of the neck at >3x sensory threshold. Prior to lesioning 1 mL of 2% Lidocaine and 2.5 mg of Decadron was injected at each level. The patient then received one 90 second lesioning cycle at 80 degrees centigrade at each level. The probe was then allowed to cool prior to withdrawing. Then, 1 mL of 1% lidocaine was then injected as the needle was withdrawn to provide deep and superficial anesthesia. The surgical site preparation was washed off of the patient. Band-Aids were applied as needed. The patient was brought to the recovery area. The patient did very well and the procedure results were discussed. Standard discharge instructions were givento the patient. The patient knows how to contact the clinic should they have any questions or problems. COMPLICATIONS: none PLAN: Next step will be as per today's updated H&P. Standard discharge instructions were given to the patient. The patient knows how to contact the clinic should they have any questions or problems. Aj Hodges MD Anesthesiology and Pain Management documented in this encounter Plan of Treatment Upcoming Encounters Date Type Department Care Team (Late st Contact Info) Description 11/24/2024 9:30 AM CDT Office Visit [facility] Internal Medicine Medical [place] A [facility] [address] [facility] [address] [address] Melani Franklin, [address] [facility] [address] [place] [address] Scheduled Orders Name Type Priority Associated Diagnoses Orde r Schedule RADIOFREQUENCY - THERMAL Neurology Routine Cervical spondylosis without myelopathy Added to HDF configuration to grandchildren will have ORD item 7712 populate with time. for 1 Occurrences starting 10/22/2023 until 10/22/2023 documented as of this encounter Procedures Procedure Name Priority Date/Time Associated Diagnosis Comments XR FLUORO NEEDLE GUIDANCE SPINE Routine 10/22/2023 10:16 AM CDT documented in this encounter Results * XR FLUORO NEEDLE GUIDANCE SPINE (10/22/2023 10:16 AM CDT) Narrative [facility] - 10/22/2023 10:16 AM CDT Order information only. ??Exam was auto-finalized. ?? Essie Eden NP DIAGNOSTIC IMAGING ORDERABLES [facility] CLIA# [id number] [facility], [facility] [address] [place] [address] documented in this encounter Visit Diagnoses Diagnosis Cervical spondylosis without myelopathy documented in this encounter Administered Medications Inactive Administered Medications - up to 3 most recent administrations Medication Order MAR Action Action Date Dose Rate Site dexAMETHasone (PF) (DECADRON) injection 10 mg 10 mg, See Admin Instructions, INTRA-PROCEDURE ONCE, 1 dose, Starting on Sun10/22/23 at 0950, Until Sun10/22/23 at 1010, Routine, Pre-Procedure Given 10/22/2023 10:10 AM CDT 10 mg Operative Site lidocaine PF 1% (XYLOCAINE MPF) injection 0-10 mL 0-10 mL, Infiltration, INTRA-PROCEDURE ONCE, 1 dose, Starting on Sun10/22/23 at 0950, Until Sun10/22/23 at 1010, Routine, Pre-Procedure Given 10/22/2023 10:10 AM CDT 10 mL lidocaine PF 2% (XYLOCAINE MPF) injection 0-5 mL 0-5 mL, See Admin Instructions, INTRA-PROCEDURE ONCE, 1 dose, Starting on Sun10/22/23 at 0950, Until Sun10/22/23 at 1009, Routine, Pre-Procedure Given 10/22/2023 10:09 AM CDT 5 mL Operative Site documented in this encounter Care Teams Director Of Academic Relationship Specialty Start Date End Date Melani Franklin DO [address] [place] [address] [address] [place] [address] PCP - General Internal Medicine 01/02/17 documented as of this encounter
--- OUTSIDE RECORDS SUMMARY | 2024-02-21 16:28 | XMS_ITS | Encounter Summary ---
Author Organization [facility] Address [address] [place] [address] Care Team Providers Care Center Specialists Name Role Phone Melani Franklin DO Primary Care Provider [phone] Encounter Details Date Type Department Care Team (Late st Contact Info) Description 12/04/2023 External Device Data STL ABSTRACTION Provider, Abstract [...] Description 11/24/2024 9:30 AM CDT Office Visit [facility] Internal Medicine Medical [place] A [facility] [address] [facility] [address] [address] Melani Franklin DO [address] [facility] [address] [place] [address] documented as of this encounter Visit Diagnoses Not on filedocumented in this encounter Care Teams Center Specialists Relationship Specialty Start Date End Date Melani Franklin DO [address] [facility] [address] [place] [address] PCP - General Internal Medicine 01/02/17 documented as of this encounter
--- OUTSIDE RECORDS SUMMARY | 2024-02-21 16:28 | XMS_ITS | Encounter Summary ---
Author Organization [facility] Address [address] [place] [address] Care Team Providers Care Semiconductor Wafers Etch Operator Name Role Phone Melani Franklin DO Primary Care Provider [phone] Encounter Details Date Type Department Care Team (Late st Contact Info) Description 10/22/2023 9:55 AM CDT - 10/22/2023 11:59 PM CDT Hospital Encounter [facility] Services [facility] [id number] [place] [phone] Essie Eden, MEHRAN [address] [address] Discharge Disposition: Home or Self Care [...] 10/17/2022 01/14/2024 documented as of this encounter Plan of Treatment Upcoming Encounters Date Type Department Care Team (Late st Contact Info) Description 11/24/2024 9:30 AM CDT Office Visit [facility] Internal Medicine Medical [facility] [address] [facility] [address] [address] Melani Franklin DO [address] [facility] [address] [place] [address] documented as of this encounter Procedures Procedure Name Priority Date/Time Associated Diagnosis Comments XR FLUORO NEEDLE GUIDANCE SPINE Routine 10/22/2023 10:16 AM CDT documented in this encounter Results * XR FLUORO NEEDLE GUIDANCE SPINE (10/22/2023 10:16 AM CDT) Narrative [facility] - 10/22/2023 10:16 AM CDT Order information only. ??Exam was auto-finalized. ?? Essie Eden NP DIAGNOSTIC IMAGING ORDERABLES [facility] CLIA# [id number] [facility] [place] [address] documented in this encounter Visit Diagnoses Not on filedocumented in this encounter Care Teams Semiconductor Wafers Etch Operator Relationship Specialty Start Date End Date Melani Franklin DO [address] [facility] [address] [place], [place] [id number] PCP - General Internal Medicine 01/02/17 documented as of this encounter
--- OUTSIDE RECORDS SUMMARY | 2024-02-21 16:28 | XMS_ITS | Encounter Summary ---
Author Organization [facility] Address [address] [place] [address] Care Team Providers Care Stamping Mill Tender Name Role Phone Melani Franklin DO Primary Care Provider [phone] Encounter Details Date Type Department Care Team (Late st Contact Info) Description 10/08/2023 9:01 AM CDT - 10/08/2023 11:59 PM CDT Hospital Encounter [facility] Imaging Services [facility] [id number] [place] [address] Essie Eden, MEHRAN [address] [address] Discharge Disposition: Home or Self [...] Description 11/24/2024 9:30 AM CDT Office Visit [facility] Internal Medicine Medical [facility] [address] [facility] [address] [address] Melani Franklin DO [address] [facility] [address] [place] [address] documented as of this encounter Procedures Procedure Name Priority Date/Time Associated Diagnosis Comments XR FLUORO NEEDLE GUIDANCE SPINE Routine 10/08/2023 9:15 AM CDT documented in this encounter Results * XR FLUORO NEEDLE GUIDANCE SPINE (10/08/2023 9:15 AM CDT) Narrative [facility] - 10/08/2023 9:15 AM CDT Order information only. ??Exam was auto-finalized. ?? Essie Eden NP DIAGNOSTIC IMAGING ORDERABLES [facility] CLIA# [id number] [facility] [place] [address] documented in this encounter Visit Diagnoses Not on filedocumented in this encounter Care Teams Stamping Mill Tender Relationship Specialty Start Date End Date Melani Franklin DO [address] [facility] [address] [place], [place] [id number] PCP - General Internal Medicine 01/02/17 documented as of this encounter
--- OUTSIDE RECORDS SUMMARY | 2024-02-21 16:28 | XMS_ITS | Encounter Summary ---
Author Organization [facility] Address [address] [place] [address] Care Team Providers Care Plate Cutter Name Role Phone Melani Franklin DO Primary Care Provider [phone] Reason for Visit * Reason Onset Date Comments Medication Refill 10/07/2023 Encounter Details Date Type Department Care Team (Late st Contact Info) Description 10/07/2023 Refill [facility] Internal Medicine [facility] [address] [facility] [address] [place] [address] Melani Franklin, DO [address] [address] Insomnia, unspecified type Social History Tobacco Use Types Packs/Day Years [...] AM CDT Office Visit [facility] Internal Medicine [facility] [address] [facility] [address] [place] [address] Melani Franklin, DO [address] [facility] [address] [place] [address] documented as of this encounter Visit Diagnoses Diagnosis Insomnia, unspecified type documented in this encounter Care Teams Plate Cutter Relationship Specialty Start Date End Date Melani Franklin DO [address] [place] [id number] PCP - General Internal Medicine 01/02/17 documented as of this encounter
--- OUTSIDE RECORDS SUMMARY | 2024-02-21 16:28 | XMS_ITS | Encounter Summary ---
Author Organization [facility] Address [address] [place] [address] Care Team Providers Care Contracts Administrator Name Role Phone Melani Franklin DO Primary Care Provider [phone] Reason for Visit * Reason Comments Med Refill Encounter Details Date Type Department Care Team (Late st Contact Info) Description 10/07/2023 Refill [facility] Internal Medicine [facility] [place] [facility] [address] [facility] [address] [address] Melani Franklin DO [address] [facility] [address] [place] [address] Insomnia, unspecified type Social History Tobacco [...] encounter Miscellaneous Notes * Telephone Encounter - Haylee Morrell RN - 10/08/2023 9:10 AM CDT I have verified this refill request with current med list. Last office visit and next office visit are up-to-date. Recent Visits Date Type Provider Dept 10/17/22 Office Visit Melani Franklin DO [facility] Int Med [place] [facility] 189 Showing recent visits within past 540 days with a meds authorizing provider and meeting all other requirements Future Appointments Date Type Provider Dept 10/29/23 Appointment Melani Franklin DO [facility] Int [facility] [place] [facility] [address] Showing future appointments within next 365 days with a meds authorizing provider and meeting all other requirements documented in this encounter Plan of Treatment Upcoming Encounters Date Type Department Care Team (Late st Contact Info) Description 11/24/2024 9:30 AM CDT Office Visit [facility] Internal Medicine [facility] [place] [facility] [address] [facility] [address] [address] Melani Franklin DO [address] [facility] [address] [place] [address] documented as of this encounter Visit Diagnoses Diagnosis Insomnia, unspecified type documented in this encounter Care Teams Contracts Administrator Relationship Specialty Start Date End Date Melani Franklin DO [address] [facility] [address] [place], [place] [id number] PCP - General Internal Medicine 01/02/17 documented as of this encounter
--- OUTSIDE RECORDS SUMMARY | 2024-02-21 16:28 | XMS_ITS | Encounter Summary ---
Author Organization [facility] Address [address] [place] [address] Care Team Providers Care Chief Estimator Name Role Phone Melani Franklin DO Primary Care Provider [phone] Encounter Details Date Type Department Care Team (Late st Contact Info) Description 10/24/2023 External Device Data [facility] ABSTRACTION Provider, Abstract [...] Description 11/24/2024 9:30 AM CDT Office Visit [facility] Internal Medicine [facility] [place] [facility] [address] [facility] [address] [address] Melani Franklin DO [address] [facility] [address] [place] [address] documented as of this encounter Visit Diagnoses Not on filedocumented in this encounter Care Teams Chief Estimator Relationship Specialty Start Date End Date Melani Franklin DO [address] [facility] [address] [place] [address] PCP - General Internal Medicine 01/02/17 documented as of this encounter
--- OUTSIDE RECORDS SUMMARY | 2024-02-21 16:28 | XMS_ITS | Encounter Summary ---
Author Organization [facility] Address [address] [place] [address] Care Team Providers Care Commercial Lines Underwriter Name Role Phone Melani Franklin DO Primary Care Provider [phone] Reason for Visit * Reason Comments Med Refill Encounter Details Date Type Department Care Team (Late st Contact Info) Description 01/19/2024 Refill [facility] Internal Medicine [facility] [address] [facility] [address] [place] [address] Melani Franklin DO [address] [address] Mild episode of recurrent major depressive disorder; NAOMI (generalized anxiety disorder) Social History Tobacco Use Types Packs/Day Years [...] Description 11/24/2024 9:30 AM CDT Office Visit [facility] Internal Medicine [facility] [address] [facility] [address] [place] [address] Melani Franklin DO [address] [facility] [address] [place] [address] documented as of this encounter Visit Diagnoses Diagnosis Mild episode of recurrent major depressive disorder NAOMI (generalized anxiety disorder) Generalized anxiety disorder documented in this encounter Care Teams Commercial Lines Underwriter Relationship Specialty Start Date End Date Melani Franklin DO [address] [place] [address] PCP - General Internal Medicine 01/02/17 documented as of this encounter
--- OUTSIDE RECORDS SUMMARY | 2024-02-21 16:28 | XMS_ITS | Clinical Summary ---
Author Organization [facility] Address [address] [place] [address] Phone Care Team Providers Care Belting Inspector Name Role Phone Melani Franklin Primary Care Provider Allergies Active Allergy Reactions Criticality Noted Date Comments Morphine Headache Low 01/02/2017 Trazodone Other (See Comments) Low 12/08/2020 Nightmares Medications Medication Sig Dispensed Refills Start Date End Date Status cetirizine (ZyrTEC) 10 mg tablet Take 10 mg by mouth daily. Active RESVERATROL ORAL Take by mouth daily. Active Biotin 1 mg Tablet Take by mouth. Ac tive albuterol sulfate 90 mcg/Actuation inhalerIndications:M ild intermittent extrinsic asthma without complication INHALE 2 PUFFS BY MOUTH EVERY 6 HOURS NEEDED FOR SHORTNESS OF BREATH 8.5 Gram 11/10/2021 Active turmeric root extract 500 mg Capsule Take 1 Capsule by mouth. Active valACYclovir (VALTREX) 1 gram tabletIndications:Co ld sore Take 2 Tablets by mouth 2 times daily. 4 Tablet 3 08/02/2022 Active lisinopril-hydroCHLO ROthiazide (ZESTORETIC) 10-12.5 mg tablet TAKE 1 TABLET BY MOUTH DAILY 90 Tablet 3 10/15/2022 Active progesterone micronized (PROMETRIUM) 100 mg Capsule TAKE 1 CAPSULE BY MOUTH IN THE EVENING 09/13/2022 Active ESTRADIOL ORAL Take by mouth. Active testosterone 100 mg Pellet by Implant route. Active clobetasoL (TEMOVATE) 0.05 % Solution Apply to affected area 2 times daily as needed for Other (See Comment) (dermatitis). 50 mL 3 10/17/2022 Active zolpidem (AMBIEN) 5 mg tabletIndications:In somnia, unspecified type TAKE 1 TO 2 TABLETS(5 TO 10 MG) BY MOUTH EVERY NIGHT NEEDED FOR INSOMNIA 30 Tablet 5 02/14/2023 Active escitalopram oxalate (LEXAPRO) 20 mg tabletIndications:Mi ld episode of recurrent major depressive disorder TAKE 1 TABLET(20 MG) BY MOUTH DAILY 100 Tablet 1 06/05/2023 Active ALPRAZolam (XANAX) 0.25 mg tabletIndications:In somnia, unspecified type TAKE 1 TO 2 TABLETS(0.25 TO 0.5 MG) BY MOUTH EVERY NIGHT NEEDED FOR ANXIETY OR INSOMNIA 30 Tablet 1 10/08/2023 Active chlorhexidine gluconate 0.12 % Mouthwash 10/02/2023 Active montelukast (SINGULAIR) 10 mg tabletIndications:Mi ld intermittent extrinsic asthma without complication TAKE 1 TABLET(10 MG) BY MOUTH TWICE DAILY 180 Tablet 3 01/14/2024 Active naproxen (NAPROSYN) 500 mg tablet TAKE 1 TABLET(500 MG) BY MOUTH TWICE DAILY 180 Tablet 01/14/2024 Active buPROPion HCL (WELLBUTRIN XL) 150 mg Extended Release 24 hour tabletIndications:Mi ld episode of recurrent major depressive disorder,NAOMI (generalized anxiety disorder) TAKE 2 TABLETS(300 MG) BY MOUTH EVERY MORNING 200 Tablet 1 01/21/2024 Active Hospital, Clinic, or Other Facility Administered Medication Ordered Dose Route Frequency Start Date End Date Status lidocaine (XYLOCAINE MPF) 20 mg/mL (2%) cardiac injection 100 mgIndications:Cervi bandar radiculopathy at C6 100 mg See Instruct INTRA-PROCEDUR E ONCE 05/10/2022 Active Active Problems Problem Noted Date Diagnosed Date Sedative, 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 02/01/2022 Extrinsic asthma without complication 10/12/2021 Mild episode of recurrent major depressive disor annamaria 06/24/2020 Benign hypertension 01/02/2017 Postcholecystectomy diarrhea 01/02/2017 Migraine with aura and witho ut status migrainosus, not intractable 01/02/2017 Insomnia 01/02/2017 Encounters Date Type Department Care Team Description 01/19/2024 [facility] Internal Medicine [place] [facility] [address] [address] Melani Franklin DO Mild episode of recurrent major depressive disorder; NAOMI (generalized anxiety disorder) 01/13/2024 Refill [facility] A MARYJANE [address] [address] Melani Franklin, Mild intermittent extrinsic asthma without complication 01/09/2024 Orders Only [facility] A MARYJANE [address] [address] Provider, Abstract 01/03/2024 Orders Only [facility] A MARYJANE [address] [address] Provider, Abstract 01/02/2024 External Device Data STL ABSTRACTION Provider, Abstract 12/18/2023 External Device Data STL ABSTRACTION Provider, Abstract 12/07/2023 Abstract [facility] MARYJANE [address] [address] Melani Franklin, 12/04/2023 External Device Data STL ABSTRACTION Provider, Abstract 12/04/2023 Orders Only [facility] A MARYJANE [address] [place] [address] Provider, Historical from Last 3 Months Immunizations Name Administration Dates Next Due (ADACEL/BOOSTRIX)(10 YR UP) TDAP VACCINE, 0.5ML, IM 10/17/2021 (HEPLISAV-B)(18 YR UP) HEPAT ITIS B VACCINE CPG-ADJUVANTED (HEPB-CPG) 2-4 DOSE, IM 12/05/2014 (PREVNAR 20)(6 WKS UP) PNEUM OCOCCAL CONJUGATE VACCINE 20-VALENT (PCV20), POLYSACCHARIDE ADW504 CONJUGATE, ADJUVANT 0.5 ML (PF) IM 01/04/2022 (SHINGRIX)(50 YRS UP) ZOSTER VACCINE RECOMBINANT, 0.5 ML, IM 12/22/2021,10/24/2021 INFLUENZA VACCINE QUADRIVALENT 3 YR UP PF IM INFLUENZA VACCINE QUADRIVALE NT 6 MOS UP CELL DERIVED PF IM 01/02/2017 INFLUENZA VACCINE QUADRIVALENT 6 MOS UP IM 10/17 INFLUENZA VACCINE QUADRIVALENT 6 MOS UP PF IM ,01/07/2019 Influenza Seasonal Unspecified Formulation IM Typhoid Vaccine IM 12/05/2014 Family History Medical History Relation Name Comments Asthma Father Tucker Glynn Cancer Father Tucker Glynn Prostate Heart Disease Father Tucker Glynn High Cholesterol Father Tucker Glynn Hypertension Father Tucker Glynn Stroke Father Tucker Glynn Healthy Mother Colon Cancer Neg Hx Relation Name Status Comments Father Tucekr Glynn Mother Alive Social History Tobacco Use Types Packs/Day Years Used Date Smoking Tobacco: Former Cigarettes 1 10 0 03/05/1997 - 03/05/2007 Smokeless Tobacco: Never Tobacco Cessation:Counseling Given: Not Answered Alcohol Use Standard Drinks/Week Comments Yes 7 [...] 10/29/2023 1:18 PM CD T Respiratory Rate 18 10/22/2023 10:31 AM CDT Oxygen Saturation 97% 10/29/2023 1:18 PM CDT Inhaled Oxygen Concentration - - Weight 57.6 kg (127 lb) 10/29/2023 1:18 PM CDT Height 157.5 cm (5' 2 ) 10/29/2023 1:18 PM CDT Body Mass Index 23.23 10/29/2023 1:18 PM CDT Plan of Treatment Upcoming Encounters Date Type Department Care Team (Late st Contact Info) Description 11/24/2024 9:30 AM CDT Office Visit [facility] Internal Medicine [place] [address] [address] Melani Franklin, DO [address] [place] [address] Health Maintenance Due Date Last Done Comments FIT-DNA Q 3 years 2014 FIT/FOBT Q 1 year 2014 Flex Sig/CT Colonography Q 5 years 2014 HEPATITIS B VACCINES (2 of 2 - CpG 2-dose series) 01/02/2015 12/05/2014 CERVICAL CANCER SCREENING 07/02/2021 07/02/2018 INFLUENZA VACCINE (#1) 2023 2, 10/17/2020, 11/17/2019, Additional history exists COVID-19 Vaccine (2 - 2023-2 5 season) 2023 03/23/2021 BREAST CANCER SCREENING 01/01/2025 01/02/20, 11/23/2023, 04/11/2022, Additional history exists COLORECTAL SCREENING 08/26/2025 08/26/2020, 08/27/19 Colorectal Cancer Screening 08/26/2025 DTAP/TDAP/TD VACCINES (2 - T d or Tdap) 10/18/2031 10/17/2021 ZOSTER VACCINE Completed 12/22/2021, 10/24/2021 PNEUMOCOCCAL VACCINE 0-64 YEARS Completed 2 Procedures Procedure Name Priority Date/Time Associated Diagnosis Comments US BREAST Routine 01/02/2024 2:07 PM CDT MAMMOGRAM REPORT Routine 01/02/2024 1:56 PM CDT CBC WITH DIFFERENTIAL Routine 11/27/2023 9:24 AM CDT Benign hypertension Pure hypercholesterolemia COMPREHENSIVE METABOLIC PANEL Routine 11/27/2023 9:24 AM CDT Benign hypertension Pure hypercholesterolemia LIPID PANEL Routine 11/27/2023 9:24 AM CDT Benign hypertension Pure hypercholesterolemia TSH REFLEXIVE Routine 11/27/2023 9:24 AM CDT Benign hypertension Pure hypercholesterolemia HEMOGLOBIN A1C Routine 11/27/2023 9:24 AM CDT Benign hypertension Pure hypercholesterolemia MAMMOGRAM REPORT Routine 11/23/2023 4:52 PM CDT COLONOSCOPY REPORT 08/26/2020 12:31 PM CDT CERV/VAG CYTOPATH, THIN PREP AND HPV Routine 07/02/2018 from Last 3 Months or Most Recently Relevant to Health Maintenance Results * US BREAST (01/02/2024 2:07 PM CDT) Anatomical Region Laterality Modality Other Abstract Provider US ORDERABLES * MAMMOGRAM REPORT (01/02/2024 1:56 PM CDT) Only the most recent of2 resultswithin the time period is included. Anatomical Region Laterality Modality Other Abstract Provider MAMMO ORDERABLES * TSH REFLEXIVE (11/27/2023 9:24 AM CDT) TSH 1.38 mIU/L [facility] Comment: ?Reference Range ?> or = 20 Years ??0.40-4.50 ? Ranges ?First trimester ?0.26-2.66 ?Second trimester ?? 0.55-2.73 ?Third trimester ?0.43-2.91 FASTING:YES FASTING: YES Test Performed at: [facility] [address] [place] ??[phone] Carlos Thi Vo Blood 11/27/2023 9:24 AM CDT 11/27/2023 9:24 AM CDT Melani Franklin DO CHEMISTRY ORDERABLES [facility] [phone] [facility] [place] [address] [place] [address] * (ABNORMAL) CBC WITH DIFFERENTIAL (11/27/2023 9:24 AM CDT) WBC 7.0 3.8 - 10.8 Thousand/ uL [facility] RBC 4.15 3.80 - 5.10 Million/u L [facility] HEMOGLOBIN 13.9 11.7 - 15.5 g/dL [facility] HEMATOCRIT 42.9 35.0 - 45.0 % [facility] MCV 103.4(H) 80.0 - 100.0 fL [facility] MCH 33.5(H) 27.0 - 33.0 pg [facility] MCHC 32.4 32.0 - 36.0 g/dL [facility] RDW 11.9 11.0 - 15.0 % [facility] PLATELETS 215 140 - 400 Thousand/ uL [facility] MPV 11.7 7.5 - 12.5 fL [facility] NEUTROPHIL ABSOLUTE 4,774 1,500 - 7,800 cells/uL [facility] LYMPHOCYTE ABSOLUTE 1,708 850 - 3,900 cells/uL [facility] [place] MONOCYTE ABSOLUTE 434 200 - 950 cells/uL [facility] [place] EOSINOPHIL ABSOLUTE 63 15 - 500 cells/uL [facility] [place] BASOPHILS ABSOLUTE 21 0 - 200 cells/uL [facility] [place] NEUTROPHIL 68.2 % [facility] LYMPHOCYTES 24.4 % [facility] [place] MONOCYTE 6.2 % [facility] [place] EOSINOPHILS 0.9 % [facility] [place] BASOPHILS 0.3 % [facility] [place] Comment: FASTING:YES FASTING: YES Test Performed at: [facility] [address] [place] ??[phone] Ninoska-Komalu Thi Vo Blood 11/27/2023 9:24 AM CDT 11/27/2023 9:24 AM CDT Melani Franklin DO HEMATOLOGY ORDERABLE S [facility] [phone] [facility] [address] [place] [address] * HEMOGLOBIN A1C (11/27/2023 9:24 AM CDT) HEMOGLOBIN A1C 4.8 <5.7 % of total Hgb [facility] Comment: For the purpose of screening for the presence of diabetes: <5.7% ? Consistent with the absence of diabetes 5.7-6.4% ?Consistent with increased risk for diabetes ?(prediabetes) > or =6.5% ??Consistent with diabetes This assay result is consistent with a decreased risk of diabetes. Currently, no consensus exists regarding use of hemoglobin A1c for diagnosis of diabetes in children. According to [place] Diabetes Association (ADA) guidelines, hemoglobin A1c <7.0% represents optimal control in non- diabetic patients. Different metrics may apply to specific patient populations. Standards of Medical Care in Diabetes(ADA). ?? ESTIMATED AVERAGE GLUCOSE (MG/DL) 91 mg/dL [facility] ESTIMATED AVERAGE GLUCOSE (MMOL/L) 5.0 mmol/L [facility] Comment: ? This test was performed on the [employer] ced c503 platform. Effective 05/21/23, a change in test platforms from the [employer] to the [employer] ced c503 may have shifted HbA1c results compared to historical results. Based on laboratory validation testing conducted at [facility], the [employer]avian platform relative to the Logan [...] recommended. FASTING:YES FASTING: YES Test Performed at: [facility] [address] [place] ??[phone] NinoskaBonitaAngela Mayelin Vo Blood 11/27/2023 9:24 AM CDT 11/27/2023 9:24 AM CDT Melani Franklin DO CHEMISTRY ORDERABLES [facility] [phone] [facility] [address] [place] [address] * (ABNORMAL) LIPID PANEL (11/27/2023 9:24 AM CDT) CHOLESTEROL 283(H) <200 mg/dL [facility] HDL 41(L) > OR = 50 mg/dL [facility] [facility] TRIGLYCERIDE 250(H) <150 mg/dL [facility] Comment: If a non-fasting specimen was collected, consider repeat triglyceride testing on a fasting specimen if clinically indicated. Esmer et al. J. of Clin. Lipidol. 2015;9:129-169. LDL CALCULATED 197(H) mg/dL (calc) [facility] [facility] Comment: LDL-C levels > or = 190 [...] about testing for familial hypercholesterolemia, please call [facility] at [email or web address]. Esmer Moreno, et al. J National Lipid Association Recommendations for Patient-Centered Management of Dyslipidemia: Part 1 Journal of Clinical Lipidology 2015;9(2), 129-169. Jo Ann Holcomb et al. (2014). Homozygous familial hypercholesterolaemia: new insights and guidance for clinicians to improve detection and clinical management. Heart Journal, 35(32), 3094-8368. Reference range: <100 Desirable range <100 mg/dL for primary prevention; ?? <70 mg/dL for patients with CHD or diabetic patients with > or = 2 CHD risk factors. LDL-C is now calculated using the Herman calculation, which is a validated novel method providing better accuracy than the Friedewald equation in the estimation of LDL-C. Anurag BOLIVAR et al. DAVIS. 2013;310(19): 8858-3726 (http://education.Sifteo/faq/NGZ433) CHOL/HDL RATIO 6.9(H) <5.0 (calc) [facility] NON-HDL CHOLESTEROL 242(H) <130 mg/dL (calc) [facility] Comment: Non-HDL level > or = 220 [...] considered a therapeutic option. Test Performed at: [facility] [address] [place] ??[phone] NinoskaLeona Leiva Blood 11/27/2023 9:24 AM CDT 11/27/2023 9:24 AM CDT Melani Franklin DO CHEMISTRY ORDERABLES [facility] [phone] [facility] [address] [place] [phone] * COMPREHENSIVE METABOLIC PANEL (11/27/2023 9:24 AM CDT) GLUCOSE 87 65 - 99 mg/dL [facility] Comment: ? Fasting reference interval BUN 12 7 - 25 mg/dL [facility] CREATININE 0.65 0.50 - 1.03 mg/dL [employer] [facility] GFR 105 > OR = 60 mL/min/1. 73m2 [employer] [facility] BUN/CREAT RATIO SEE NOTE: 6 - 22 (calc) [facility] [facility] Comment: ?? Not Reported: BUN and Creatinine are within ?? reference range. ? SODIUM 139 135 - 146 mmol/L [facility] POTASSIUM 4.4 3.5 - 5.3 mmol/L [facility] CHLORIDE 105 98 - 110 mmol/L [facility] CO2 28 20 - 32 mmol/L [facility] [facility] CALCIUM 9.5 8.6 - 10.4 mg/dL [facility] TOTAL PROTEIN 6.6 6.1 - 8.1 g/dL [employer] [facility] ALBUMIN 4.5 3.6 - 5.1 g/dL [facility] GLOBULIN 2.1 1.9 - 3.7 g/dL (calc) [facility] ALBUMIN/GLOBULIN RATIO 2.1 1.0 - 2.5 (calc) [facility] BILIRUBIN TOTAL 0.6 0.2 - 1.2 mg/dL [facility] ALKALINE PHOSPHATASE 70 37 - 153 U/L [facility] AST 16 10 - 35 U/L [facility] ALT 14 6 - 29 U/L [facility] Comment: FASTING:YES FASTING: YES Test Performed at: [place] [address] [place], [place] ??[phone] Carlos Leiva Blood 11/27/2023 9:24 AM CDT 11/27/2023 9:24 AM CDT Melani Franklin DO CHEMISTRY ORDERABLES [facility] [phone] [place] [address] [place] [address] * COLONOSCOPY REPORT (08/26/2020 12:31 PM CDT) Narrative Procedure Note Barrington Bueno MD - 08/26/2020 12:31 PM CDT [facility] Endoscopy Patient Name: Jody Mason Procedure Date: 08/26/2020 Date of : 1970 Admit Type: Outpatient Attending MD: Barrington Bueno MD Procedure: Colonoscopy Indications: Screening for colorectal malignant neoplasm Providers: Barrington Bueno MD Referring MD: Melani Franklin Medicines: General Anesthesia Complications: No immediate complications. Estimated blood loss: Minimal. Procedure: Informed consent was obtained for the procedure, including moderate sedation after risks were discussed. Based on the pre-procedure assessment, including review of the patient's medical history, medications, allergies, and review of systems, the patient was deemed to be an appropriate candidate for sedation. A timeout was performed. Continuous ECG monitoring, pulse oximetry, blood pressure monitoring, and direct observation were performed. The scope was introduced through the anus and advanced to the terminal ileum. The colonoscopy was performed without difficulty. The patient tolerated the procedure well. The quality of the bowel preparation was good. Estimated Blood Loss: Estimated blood loss was minimal. Findings: Two flat polyps were found in the transverse colon. The polyps were 6 to 8 mm in size. These polyps were removed with a cold snare. Resection and retrieval were complete. A 1 mm polyp was found in the rectum. The polyp was sessile. The polyp was removed with a cold biopsy forceps. Resection and retrieval were complete. Internal hemorrhoids were found during retroflexion. The hemorrhoids were small. The exam was otherwise without abnormality. Impression: - Two 6 to 8 mm polyps in the transverse colon, removed with a cold snare. Resected and retrieved. - One 1 mm polyp in the rectum, removed with a cold biopsy forceps. Resected and retrieved. - Internal hemorrhoids. - The examination was otherwise normal. Recommendation: - Await pathology results. - If the pathology report reveals adenomatous tissue, then repeat the colonoscopy for surveillance in 5 years. Barrington Bueno MD 08/26/2020 12:30:56 PM This report has been signed electronically. Number of Addenda: [address]; [place] [address] Barrington Bueno MD GI PROCEDURE ORDERAB LES * CERV/VAG CYTOPATH, THIN PREP AND HPV (07/02/2018) Genital SWAB OF ENDOCERVIX / Unknown Stl Other PATHOLOGY/CYTOLOGY O RDERABLES from Last 3 Months or Most Recently Relevant to Health Maintenance Care Teams Belting Inspector Relationship Specialty Start Date End Date Melani Franklin DO [address] [place] [address] PCP - General Internal Medicine 01/02/17
--- OUTSIDE RECORDS SUMMARY | 2024-02-21 16:28 | XMS_ITS | Encounter Summary ---
Author Organization [facility] Address [address] [place] [address] Care Team Providers Care Alum Mixer Name Role Phone Melani Franklin DO Primary Care Provider [phone] Encounter Details Date Type Department Care Team (Late st Contact Info) Description 11/06/2023 External Device Data STL ABSTRACTION Provider, Abstract [...] Description 11/24/2024 9:30 AM CDT Office Visit [facility] Internal Medicine Medical [place] [facility] [address] [address] Melani Franklin DO [address] [place] [address] documented as of this encounter Visit Diagnoses Not on filedocumented in this encounter Care Teams Alum Mixer Relationship Specialty Start Date End Date Melani Franklin DO [address] [place] [address] PCP - General Internal Medicine 01/02/17 documented as of this encounter
--- OUTSIDE RECORDS SUMMARY | 2024-02-21 16:28 | XMS_ITS | Encounter Summary ---
Author Organization [facility] Address [address] [place] [address] Care Team Providers Care Ethanol Operator Name Role Phone Melani Franklin DO Primary Care Provider [phone] Reason for Visit * Reason Comments Med Refill Encounter Details Date Type Department Care Team (Late st Contact Info) Description 01/13/2024 Refill [facility] Internal Medicine Medical [facility] [address] [address] Melani Franklin, [address] [place] [address] Mild intermittent extrinsic asthma without complication Social History Tobacco Use Types Packs/Day Years [...] Telephone Encounter - Haylee Morrell RN - 01/14/2024 8:34 AM CST 01/14/2024 8:34 AM High dose warning for Singulair 10mg. Haylee RN TION WORKER documented in this encounter Plan of Treatment Upcoming Encounters Date Type Department Care Team (Late st Contact Info) Description 11/24/2024 9:30 AM CDT Office Visit [facility] Internal Medicine Medical [place] A [facility] [address] [address] Melani Franklin DO [address] [place] [address] documented as of this encounter Visit Diagnoses Diagnosis Mild intermittent extrinsic asthma without complication documented in this encounter Care Teams Ethanol Operator Relationship Specialty Start Date End Date Melani Franklin DO [address] [place], [place] [address] PCP - General Internal Medicine 01/02/17 documented as of this encounter
--- OUTSIDE RECORDS SUMMARY | 2024-02-21 16:28 | XMS_ITS | Encounter Summary ---
Author Organization [facility] Address [address] [place] [address] Care Team Providers Care Laundry Manager Name Role Phone Melani Franklin Linda MENARD Primary Care Provider [phone] Reason for Referral * Outpatient Services (Routine) - Closed Specialty Diagnoses / Procedures Referred By Tyrone baxter Referred To Contact Diagnoses Cervical spondylosis without myelopathy Procedures RADIOFREQUENCY - THERMAL AL DSTR NROLYTC AGNT PARVERTEB FCT ADDL CRVCL/THORA AL DSTR NROLYTC AGNT PARVERTEB FCT SNGL CRVCL/THORA Essie Eden NP [address] [place] [phone] Referral ID Status Reason Start Date Expiration Date Visits Re quested Visits Authorized [id number] Closed 10/08/2023 01/06/2024 1 1 Reason for Visit * Outpatient Services (Routine) - Closed Specialty Diagnoses / Procedures Referred By Tyrone baxter Referred To Contact Diagnoses Cervical spondylosis without myelopathy Procedures RADIOFREQUENCY - THERMAL AL DSTR NROLYTC AGNT PARVERTEB FCT ADDL CRVCL/THORA AL DSTR NROLYTC AGNT PARVERTEB FCT SNGL CRVCL/THORA Essie Eden NP [address] [place] [phone] Referral ID Status Reason Start Date Expiration Date Visits Re quested Visits Authorized [id number] Closed 10/08/2023 01/06/2024 1 1 Encounter Details Date Type Department Care Team (Late st Contact Info) Description 10/08/2023 8:22 AM CDT - 10/08/2023 11:59 PM CDT Hospital Encounter [facility] [address] [place] [address] [place] [address] [facility] [address] [place] [address] Discharge Disposition: Home or Self [...] Sign Reading Time Taken Comments Blood Pressure 149/100 10/08/2023 9:31 AM CDT Pulse 73 10/08/2023 9:31 AM CDT Temperature - - Respiratory Rate 18 10/08/2023 9:31 AM CDT Oxygen Saturation 98% 10/08/2023 9:31 AM CDT Inhaled Oxygen Concentration - - Weight - - Height - - Body Mass Index - - documented in this encounter Discharge Instructions * Discharge Instructions* Yanelis Lombardo RN - 10/08/2023 8:33 AM CDT [facility] [place] Discharge Instructions Office My REPPclyde is the most effective way to communicate with [facility] and we would like you to use My REPPclyde to communicate about your injection as well. [...] begins to change color, notify the doctor [phone]. For the first 2 weeks you will [...] for pain (if no contraindication per your airport operations duty manager/mannequin molder/PCP) Bath, showers, water activities: Do not soak [...] Mouthwash 10/02/2023 ALPRAZolam (XANAX) 0.25 mg tabletIndications:Insom adsi, unspecified type TAKE 1 TO 2 TABLETS(0.25 [...] H&P Notes * Aj Hodges MD - 10/08/2023 9:30 AM CDT [facility] PROCEDURE H&P CC: chronic neck pain Jody Mason is an 53 y.o. female who presents with cervical spondylosis of Left C4-C5 and C5-C6, here for RFA procedure. HPI is unchanged from last office visit. Previous RFA at similar levelsprovided greater than 50% pain relief and improvement [...] HX CHOLECYSTECTOMY 2009 HX COCCYGECTOMY LAP CHOLECYSTECTOMY AL COLONOSCOPY FLX DX W/COLLJ SPEC WHEN PFRMD N/A 08/26/2020 COLONOSCOPY performed by Barrington Bueno MD at [facility] GI LAB Allergies Allergen Reactions Morphine Headache Trazodone Other (See Comments) Nightmares Current Outpatient Medications Medication Sig Dispense Refill escitalopram oxalate (LEXAPRO) 20 mg tablet TAKE 1 TABLET(20 MG) BY MOUTH DAILY 100 Tablet 1 buPROPion HCL (WELLBUTRIN XL) 150 mg Extended Release 24 hour tablet TAKE 2 TABLETS(300 MG) BY MOUTH EVERY MORNING 200 Tablet 1 zolpidem (AMBIEN) 5 mg tablet TAKE 1 TO 2 TABLETS(5 TO 10 MG) BY MOUTH EVERY NIGHT NEEDED FOR INSOMNIA 30 Tablet 5 cyclobenzaprine (FLEXERIL) 10 mg tablet Take 1 Tablet (10 mg) by mouth 3 times daily as needed for Spasm. 30 Tablet 0 ALPRAZolam (XANAX) 0.25 mg tablet TAKE 1 TO 2 TABLETS(0.25 TO 0.5 MG) BY MOUTH EVERY NIGHT NEEDED FOR ANXIETY OR INSOMNIA 30 Tablet 0 progesterone micronized (PROMETRIUM) 100 mg Capsule TAKE 1 CAPSULE BY MOUTH IN THE EVENING ESTRADIOL ORAL Take by mouth. testosterone 100 mg Pellet by Implant route. montelukast (SINGULAIR) 10 mg tablet Take 1 Tablet (10 mg) by mouth 2 times daily. 180 Tablet 3 clobetasoL (TEMOVATE) 0.05 % Solution Apply to affected area 2 times daily as needed for Other (SeeComment) (dermatitis). 50 mL 3 lisinopril-hydroCHLOROthiazide (ZESTORETIC) 10-12.5 mg tablet TAKE 1 TABLET BY MOUTH DAILY 90 Tablet 3 naproxen (NAPROSYN) 500 mg tablet Take [...] Take by mouth daily. COLLAGEN MISC by Misc.(Non-Drug; Combo Route) route daily. Current Facility-Administered Medications Medication Dose Route Frequency Provider Last Rate Last Admin [COMPLETED] dexAMETHasone (PF) (DECADRON) injection 10 mg 10 mg See Admin Instructions intra-proc ONE time Essie Eden NP 10 mg at 10/08/23914 [COMPLETED] lidocaine PF 1% (XYLOCAINE MPF) injection 0-10 mL 0-10 mL Infiltration intra-proc ONE time Essie Eden NP 10 mL at 10/08/23914 [COMPLETED] lidocaine PF 2% (XYLOCAINE MPF) injection 0-5 mL 0-5 mL See Admin Instructions intra-proc ONE time Essie Eden NP 5 mL at 10/08/23914 lidocaine (XYLOCAINE MPF) 20 mg/mL (2%) cardiac injection 100 mg 5 mL See Admin Instructions intra-proc ONE time Aj Hodges MD ROS negative for all other systems except as in HPI BP 132/89 (BP Location: Right arm) Pulse 74 Resp 18 SpO2 98% General: NAD Lungs: CTAB Heart: NSR, well [...] procedure note will be dictated separately. 2. Right side RFA next at same levels Aj Hodges MD Anesthesiology and Pain Management documented in this encounter OR Notes * Operative Report - Aj Hodges MD - 10/08/2023 9:30 AM CDT PATIENT NAME: Jody Mason PATIENT DATE OF SURGERY: 10/08/2023 TITLE OF PROCEDURE: Cervical Radiofrequency Denervation of the Medial Branch Nerves under fluoroscopic guidance INDICATION: Jody Mason's pain is facet joint (z-joint) mediated disease that is aggravated by hyperextension, rotation or lateral bending. This was confirmed by provocative testing. Greater than 80% pain relief was obtained by the first diagnostic block of these nerves. LEVELS TREATED: C4-C5 and C5-C6 SIDE: Left PREOPERATIVE DIAGNOSES: Cervical Spondylosis POSTOPERATIVE DIAGNOSES: Same [...] Description 11/24/2024 9:30 AM CDT Office Visit [facility] Internal Medicine Medical [place] [address] [facility] [address] [address] Noemi Melani Linda, DO [address] [facility] [address] [place] [address] Scheduled Orders Name Type Priority Associated Diagnoses Orde r Schedule RADIOFREQUENCY - THERMAL Neurology Routine Cervical spondylosis without myelopathy Added to HDF configuration to grandchildren will have ORD item [id number] populate with time. for 1 Occurrences starting 10/08/2023 until 10/08/2023 documented as of this encounter Procedures Procedure Name Priority Date/Time Associated Diagnosis Comments XR FLUORO NEEDLE GUIDANCE SPINE Routine 10/08/2023 9:15 AM CDT documented in this encounter Results * XR FLUORO NEEDLE GUIDANCE SPINE (10/08/2023 9:15 AM CDT) Narrative [facility] - 10/08/2023 9:15 AM CDT Order information only. ??Exam was auto-finalized. ?? Essie Eden NP DIAGNOSTIC IMAGING ORDERABLES [facility] CLIA# [id number] [facility] [place], [address] [place] [address] documented in this encounter Visit Diagnoses Diagnosis Cervical spondylosis without myelopathy documented in this encounter Administered Medications Inactive Administered Medications - up to 3 most recent administrations Medication Order MAR Action Action Date Dose Rate Site dexAMETHasone (PF) (DECADRON) injection 10 mg 10 mg, See Admin Instructions, INTRA-PROCEDURE ONCE, 1 dose, Starting on Sun10/08/23 at 0930, Until Sun10/08/23 at 0915, Routine, Pre-Procedure Given 10/08/2023 9:15 AM CDT 10 mg Oper ative Site lidocaine PF 1% (XYLOCAINE MPF) injection 0-10 mL 0-10 mL, Infiltration, INTRA-PROCEDURE ONCE, 1 dose, Starting on Sun10/08/23 at 0930, Until Sun10/08/23 at 0915, Routine, Pre-Procedure Given 10/08/2023 9:15 AM CDT 10 mL lidocaine PF 2% (XYLOCAINE MPF) injection 0-5 mL 0-5 mL, See Admin Instructions, INTRA-PROCEDURE ONCE, 1 dose, Starting on Sun10/08/23 at 0930, Until Sun10/08/23 at 0915, Routine, Pre-Procedure Given 10/08/2023 9:15 AM CDT 5 mL Oper ative Site documented in this encounter Care Teams Laundry Manager Relationship Specialty Start Date End Date Melani Franklin DO [address] [place] [address] PCP - General Internal Medicine 01/02/17 documented as of this encounter
--- OUTSIDE RECORDS SUMMARY | 2024-02-21 16:28 | XMS_ITS | Encounter Summary ---
Author Organization [facility] Address [address] [place] [address] Care Team Providers Care Social Services Name Role Phone Melani Franklin DO Primary Care Provider [phone] Encounter Details Date Type Department Care Team (Late Contact Info) Description 01/09/2024 Orders Only [facility] Internal Medicine [facility] [address] [facility] [address] [place] [address] Provider, Abstract NO ADDRESS ON FILE Social [...] Description 11/24/2024 9:30 AM CDT Office Visit [facility] Internal Medicine [facility] [address] [facility] [address] [address] Melani Franklin DO [address] [facility] [address] [place] [address] documented as of this encounter Procedures Procedure Name Priority Date/Time Associated Diagnosis Comments US BREAST Routine 01/02/2024 2:07 PM CDT documented in this encounter Results * US BREAST (01/02/2024 2:07 PM CDT) Anatomical Region Laterality Modality Other Abstract Provider US ORDERABLES documented in this encounter Visit Diagnoses Not on filedocumented in this encounter Care Teams Social Services Relationship Specialty Start Date End Date Melani Franklin DO [address] [facility] [address] [place] [address] PCP - General Internal Medicine 01/02/17 documented as of this encounter
--- OUTSIDE RECORDS SUMMARY | 2024-02-21 16:28 | XMS_ITS | Encounter Summary ---
Author Organization [facility] Address [address] [place] [address] Care Team Providers Care Loom Setter Name Role Phone Melani Franklin DO Primary Care Provider [phone] Encounter Details Date Type Department Care Team (Late Contact Info) Description 12/07/2023 Abstract [facility] Internal [facility] [address] [facility] [place] [address] Melani Franklin, DO [address] [facility] [address] [place] [address] Social History Tobacco Use Types Packs/Day Years [...] Description 11/24/2024 9:30 AM CDT Office Visit [facility] Internal [facility] [address] [facility] [address] [place] [address] Melani Franklin, DO [address] [facility] [address] [place] [address] documented as of this encounter Visit Diagnoses Not on filedocumented in this encounter Care Teams Loom Setter Relationship Specialty Start Date End Date Melani Franklin DO [address] [facility] [address] [place] [address] PCP - General Internal Medicine 01/02/17 documented as of this encounter
--- OUTSIDE RECORDS SUMMARY | 2024-02-21 16:28 | XMS_ITS | Encounter Summary ---
Author Organization [facility] Address [address] [place] [address] Care Team Providers Care Maintenance Worker Swimming Pool Name Role Phone Melani Franklin DO Primary Care Provider [phone] Encounter Details Date Type Department Care Team (Late Contact Info) Description 12/04/2023 Orders Only [facility] Internal Medicine [facility] [address] [facility] [address] [facility] [place] [address] Provider, Historical Social History Tobacco Use Types Packs/Day Years [...] [facility] [address] [facility] [address] [place] [address] Melani Franklin DO [address] [address] [place] [address] documented as of this encounter Procedures Procedure Name Priority Date/Time Associated Diagnosis Comments MAMMOGRAM REPORT Routine 11/23/2023 4:52 PM CDT documented in this encounter Results * MAMMOGRAM REPORT (11/23/2023 4:52 PM CDT) Anatomical Region Laterality Modality Other Historical Provider MAMMO ORDERABLES documented in this encounter Visit Diagnoses Not on filedocumented in this encounter Care Teams Maintenance Worker Swimming Pool Relationship Specialty Start Date End Date Melani Franklin DO [address] [facility] [address] [place] [address] PCP - General Internal Medicine 01/02/17 documented as of this encounter
--- OUTSIDE RECORDS SUMMARY | 2024-02-21 16:28 | XMS_ITS | Encounter Summary ---
Author Organization [facility] Address [address] [place] [address] Care Team Providers Care Manufactured Buildings Supervisor Name Role Phone Melani Franklin DO Primary Care Provider [phone] Encounter Details Date Type Department Care Team (Late st Contact Info) Description 10/23/2023 External Device Data STL ABSTRACTION Provider, Abstract [...] Description 11/24/2024 9:30 AM CDT Office Visit [facility] [place] [facility] Internal Medicine Medical [place] A [facility] [address] [facility] [address] [address] Melani Franklin DO [address] [facility] [address] [place] [address] documented as of this encounter Visit Diagnoses Not on filedocumented in this encounter Care Teams Manufactured Buildings Supervisor Relationship Specialty Start Date End Date Melani Franklin DO [address] [facility] [address] [place] [address] PCP - General Internal Medicine 01/02/17 documented as of this encounter
--- OUTSIDE RECORDS SUMMARY | 2024-02-21 16:28 | XMS_ITS | Encounter Summary ---
Author Organization [facility] Address [address] [place] [address] Care Team Providers Care Carbon Grinder Name Role Phone Melani Franklin DO Primary Care Provider [phone] Encounter Details Date Type Department Care Team (Late st Contact Info) Description 10/31/2023 External Device Data STL ABSTRACTION Provider, Abstract [...] Description 11/24/2024 9:30 AM CDT Office Visit [facility] Internal Medicine [address] A [facility] [address] [facility] [address] [address] Melani Franklin DO [address] [facility] [address] [place] [address] documented as of this encounter Visit Diagnoses Not on filedocumented in this encounter Care Teams Carbon Grinder Relationship Specialty Start Date End Date Melani Franklin DO [address] [facility] [address] [place] [address] PCP - General Internal Medicine 01/02/17 documented as of this encounter
--- OUTSIDE RECORDS SUMMARY | 2024-02-21 16:28 | XMS_ITS | Encounter Summary ---
Author Organization [facility] Address [address] [place] [address] Care Team Providers Care Processing Spec Name Role Phone Melani Franklin DO Primary Care Provider Encounter Details Date Type Department Care Team (Late st Contact Info) Description 10/30/2023 External Device Data STL ABSTRACTION Provider, Abstract [...] Description 11/24/2024 9:30 AM CDT Office Visit [facility] Internal Medicine Medical [place] A [facility] [address] [facility] [address] [address] Melani Franklin DO [address] [facility] [address] [place] [address] documented as of this encounter Visit Diagnoses Not on filedocumented in this encounter Care Teams Processing Spec Relationship Specialty Start Date End Date Melani Franklin DO [address] [facility] [address] [place] [address] PCP - General Internal Medicine 01/02/17 documented as of this encounter
--- OUTSIDE RECORDS SUMMARY | 2024-02-21 16:28 | XMS_ITS | Encounter Summary ---
Author Organization [facility] Address [address] [place] [address] Care Team Providers Care Carpenter Refrigerator Name Role Phone Melani Franklin DO Primary Care Provider [phone] Encounter Details Date Type Department Care Team [...] Description 11/24/2024 9:30 AM CDT Office Visit [facility] Internal Medicine Medical [place] A [facility] [address] [facility] [address] [address] Melani Franklin DO [address] [facility] [address] [place] [address] documented as of this encounter Visit Diagnoses Not on filedocumented in this encounter Care Teams Carpenter Refrigerator Relationship Specialty Start Date End Date Melani Franklin DO [address] [facility] [address] [place] [address] PCP - General Internal Medicine 01/02/17 documented as of this encounter
--- OUTSIDE RECORDS SUMMARY | 2024-02-21 16:28 | XMS_ITS | Encounter Summary ---
Author Organization [facility] Address [address] [place] [address] Care Team Providers Care Equipment Engineering Technician Name Role Phone Melani Franklin DO Primary Care Provider [phone] Encounter Details Date Type Department Care Team (Late st Contact Info) Description 12/18/2023 External Device Data STL ABSTRACTION Provider, [...] Description 11/24/2024 9:30 AM CDT Office Visit [facility] Internal Medicine Medical [place] A [facility] [address] [facility] [address] [address] Melani Franklin DO [address] [facility] [address] [place] [address] documented as of this encounter Visit Diagnoses Not on filedocumented in this encounter Care Teams Equipment Engineering Technician Relationship Specialty Start Date End Date Melani Franklin DO [address] [facility] [address] [place] [address] PCP - General Internal Medicine 01/02/17 documented as of this encounter
--- OUTSIDE RECORDS SUMMARY | 2024-02-21 16:28 | XMS_ITS | Encounter Summary ---
Author Organization [facility] Address [address] [place] [address] Care Team Providers Care Furniture Mover Helper Name Role Phone Melani Franklin DO Primary Care Provider [phone] Encounter Details Date Type Department Care Team (Late Contact Info) Description 01/03/2024 Orders Only [facility] Internal Medicine [facility] [address] [facility] [address] [place] [address] Provider, Abstract NO ADDRESS ON [...] Description 11/24/2024 9:30 AM CDT Office Visit [facility] Internal Medicine [facility] [address] [facility] [address] [address] Melani Franklin DO [address] [facility] [address] [place] [address] documented as of this encounter Procedures Procedure Name Priority Date/Time Associated Diagnosis Comments MAMMOGRAM REPORT Routine 01/02/2024 1:56 PM CDT documented in this encounter Results * MAMMOGRAM REPORT (01/02/2024 1:56 PM CDT) Anatomical Region Laterality Modality Other Abstract Provider MAMMO ORDERABLES documented in this encounter Visit Diagnoses Not on filedocumented in this encounter Care Teams Furniture Mover Helper Relationship Specialty Start Date End Date Melani Franklin DO [address] [facility] [address] [place] [address] PCP - General Internal Medicine 01/02/17 documented as of this encounter
--- OUTSIDE RECORDS SUMMARY | 2024-02-21 16:28 | XMS_ITS | Encounter Summary ---
Author Organization [facility] Address [address] [place] [address] Care Team Providers Care Field Organizer Name Role Phone Melani Franklin Linda Primary Care Provider [phone] Reason for Referral * Outpatient Services (Routine) - Closed Specialty Diagnoses / Procedures Referred By Contac t Referred To Contact Diagnoses Cervical spondylosis without myelopathy Procedures RADIOFREQUENCY - THERMAL AL DSTR NROLYTC AGNT PARVERTEB FCT ADDL CRVCL/THORA AL DSTR NROLYTC AGNT PARVERTEB FCT SNGL CRVCL/THORA Essie Eden NP [address] [place] [phone] Referral ID Status Reason Start Date Expiration Date Visits Re quested Visits Authorized [id number] Closed 10/08/2023 01/06/2024 1 1 * Outpatient Services (Routine) - Closed Specialty Diagnoses / Procedures Referred By Contac t Referred To Contact Diagnoses Cervical spondylosis without myelopathy Procedures RADIOFREQUENCY - THERMAL AL DSTR NROLYTC AGNT PARVERTEB FCT SNGL CRVCL/THORA AL DSTR NROLYTC AGNT PARVERTEB FCT ADDL CRVCL/THORA Essie Eden NP [address] [place] [phone] Referral ID Status Reason Start Date Expiration Date Visits Re quested Visits Authorized [id number] Closed 10/22/2023 01/20/2024 1 1 Encounter Details Date Type Department Care Team (Late st Contact Info) Description 10/02/2023 Prep for Surgery [facility] [address] [facility] [address] [place] [address] Meek Essie Kinsey, LADIES SUIT OPERATOR [address] [facility] [address] [place] [address] Cervical spondylosis without myelopathy (Primary Dx) Social History Tobacco Use Types [...] Description 11/24/2024 9:30 AM CDT Office Visit [facility] Internal Medicine Medical [place] A [facility] [address] [facility] [address] [address] Melani Franklin DO [address] [facility] [address] [place], [place] [address] Scheduled Orders Name Type Priority Associated Diagnoses Orde r Schedule RADIOFREQUENCY - THERMAL Neurology Routine Cervical spondylosis without myelopathy 1 Occurrences starting 10/02/2023 until 10/01/2024 RADIOFREQUENCY - THERMAL Neurology Routine Cervical spondylosis without myelopathy 1 Occurrences starting 10/02/2023 until 10/01/2024 documented as of this encounter Visit Diagnoses Diagnosis Cervical spondylosis without myelopathy- Primary documented in this encounter Care Teams Field Organizer Relationship Specialty Start Date End Date Melani Franklin DO [address] [facility] [address] [place] [address] PCP - General Internal Medicine 01/02/17 documented as of this encounter
--- OUTSIDE RECORDS SUMMARY | 2024-02-21 16:29 | XMS_ITS | Encounter Summary ---
[facility] Organization [facility] Address [address] [place] [address] Care Team Providers Care Flame Burner Name Role Phone Melani Franklin DO Primary Care Provider [phone] Reason for Referral * Outpatient Services (Routine) - Closed Specialty Diagnoses / Procedures Referred By Tyrone baxter Referred To Contact Diagnoses Cervical radiculopathy Procedures EPIDURAL STEROID INJECTION, CERVICAL/THORACIC NE NJX DX/THER SBST INTRLMNR CRV/THRC [place] [id number] [address] Referral ID Status Reason Start Date Expiration Date Visits Re quested Visits Authorized [id number] Closed 01/23/2023 04/23/2023 1 1 HOUSE OPERATOR Reason for Visit * Outpatient Services (Routine) - Closed Specialty Diagnoses / Procedures Referred By Tyrone baxter Referred To Contact Diagnoses Cervical radiculopathy Procedures EPIDURAL STEROID INJECTION, CERVICAL/THORACIC NE NJX DX/THER SBST INTRLMNR CRV/THRC W/[place] [id number] [address] Referral ID Status Reason Start Date Expiration Date Visits Re quested Visits Authorized [id number] Closed 01/23/2023 04/23/2023 1 1 Encounter Details Date Type Department Care Team (Late st Contact Info) Description 01/23/2023 8:44 AM PUMP HOUSE OPERATOR - 01/23/2023 11:59 PM PUMP HOUSE OPERATOR Hospital Encounter [facility] [place] [id number] [place] [address] [place] [address] [place] [address] Discharge Disposition: Home or Self [...] Sign Reading Time Taken Comments Blood Pressure 129/78 01/23/2023 9:46 AM PUMP HOUSE OPERATOR Pulse 74 01/23/2023 9:46 AM PUMP HOUSE OPERATOR Temperature - - Respiratory Rate 18 01/23/2023 9:46 AM PUMP HOUSE OPERATOR Oxygen Saturation 98% 01/23/2023 9:46 AM PUMP HOUSE OPERATOR Inhaled Oxygen Concentration - - Weight - - Height - - Body Mass Index - - documented in this encounter Discharge Instructions * Discharge Instructions* Leonarda Hurst, RN - 01/23/2023 8:46 AM PUMP HOUSE OPERATOR [facility] [place] Discharge Instructions Office My Nubia is the most effective way to communicate with [facility] and we would like you to use My Railpodclyde to communicate about your injection as well. Dr. Hodges would like you to have a follow-up phone call or office visit, which will be arranged prior to your discharge. WE will call you and the number on your caller ID will be [phone], pleaseanswer this call. Please keep this appointment as any non-emergent questions can be answered duringthis visit. The day following the procedure: If you are on Blood Thinners and you held them, you may start these again on the day following the procedure. Physical Therapy may be resumed 48 hours after the injection. Please ask about any specific physical therapy questions. Please remember the steroids will start to take effect in 3-5 days with full potential at about 2-3weeks. If you routinely need antibiotic prophylaxis please continue these as prescribed by your primary care physician. Activity: No driving the day of the injection IF you feel numbness/tingling/weakness in your extremities, until normal sensation returns. If you receive any oral medication prior to your injection, you may not drive, operate machinery, make important decisions, or place yourself in potentially unsafe situations for the next 12 hours, as you may have temporary memory loss. With this medication you may feel sleepy and should rest untilyou are more awake, then gradually resume normal activity. Avoid vigorous physical activity for 24 hours after your injection. Do not lift anything greater than 10 pounds, example: a full gallon of milk, for 48 hours. You may perform moderate exercise as tolerated, avoid excessive bending or twisting. Diet: You may resume your normal diet today. If you are a diabetic and received a steroid injection, you may have a spike in your blood sugar. Monitor your blood sugar, and if your blood sugar is higher than 200, call your PCP for instructions.A high blood sugar may persist for up to 3-4 days after the procedure. Comfort Measures: Remove Band-Aid after 4-6 hours, remove dressing after 8 hours. Some bleeding/spotting is expected. You may apply ice to the injection area for 20 minutes intervals up to six times per day. After the first 24 hours you may alternate with ice and heat You may take your usual medications as directed by your doctor. You may take Tylenol 1000 milligram every 6 hours as needed for pain. You may take ibuprofen 400 milligram every 4 hours as needed for pain (if no contraindication per your train operations manager/door puller/PCP) Bath, showers, water activities: Do not soak in any water for the next 48 hours. This would be things like a bathtub, hot tub, swimming pool, etc.. You may take a shower 6 hours after the procedure. Common injection side effects: You may experience facial flushing, sleeplessness, restlessness, appetite changes after receiving steroid injection. These symptoms can last for one to four days. You may experience increased pain after the numbing agent wears off. You may have slightly red, itchy skin at the site of injection. You may feel soreness, increase pain, muscle spasms at the injection site for up to 24 to 48 hours after your injection, due to the trauma of the injection itself. Complications: Difficulty breathing, chest pain, shortness of breath, or any other life- threatening condition, call 911 or go to the nearest emergency room immediately! If you develop any of the following complications, call the pain clinic. For after hours, [...] swelling or redness around the injection site [facility] [place] Discharge Instructions Office My Kranem is the most effective way to communicate with [facility] and we would like you to use My Kranem to communicate about your injection as well. Dr. Hodges would like you to have a follow-up phone call or office visit, which will be arranged prior to your discharge. WE will call you and the number on your caller ID will be [phone], pleaseanswer this call. Please keep this appointment as any non-emergent questions can be answered duringthis visit. The day following the procedure: If you are on Blood Thinners and you held them, you may start these again on the day following the procedure. Physical Therapy may be resumed 48 hours after the injection. Please ask about any specific physical therapy questions. Please remember the steroids will start to take effect in 3-5 days with full potential at about 2-3weeks. If you routinely need antibiotic prophylaxis please continue these as prescribed by your primary care physician. Activity: No driving the day of the injection IF you feel numbness/tingling/weakness in your extremities, until normal sensation returns. If you receive any oral medication prior to your injection, you may not drive, operate machinery, make important decisions, or place yourself in potentially unsafe situations for the next 12 hours, as you may have temporary memory loss. With this medication you may feel sleepy and should rest untilyou are more awake, then gradually resume normal activity. Avoid vigorous physical activity for 24 hours after your injection. Do not lift anything greater than 10 pounds, example: a full gallon of milk, for 48 hours. You may perform moderate exercise as tolerated, avoid excessive bending or twisting. Diet: You may resume your normal diet today. If you are a diabetic and received a steroid injection, you may have a spike in your blood sugar. Monitor your blood sugar, and if your blood sugar is higher than 200, call your PCP for instructions.A high blood sugar may persist for up to 3-4 days after the procedure. Comfort Measures: Remove Band-Aid after 4-6 hours, remove dressing after 8 hours. Some bleeding/spotting is expected. You may apply ice to the injection area for 20 minutes intervals up to six times per day. After the first 24 hours you may alternate with ice and heat You may take your usual medications as directed by your doctor. You may take Tylenol 1000 milligram every 6 hours as needed for pain. You may take ibuprofen 400 milligram every 4 hours as needed for pain (if no contraindication per your train operations manager/door puller/PCP) Bath, showers, water activities: Do not soak in any water for the next 48 hours. This would be things like a bathtub, hot tub, swimming pool, etc.. You may take a shower 6 hours after the procedure. Common injection side effects: You may experience facial flushing, sleeplessness, restlessness, appetite changes after receiving steroid injection. These symptoms can last for one to four days. You may experience increased pain after the numbing agent wears off. You may have slightly red, itchy skin at the site of injection. You may feel soreness, increase pain, muscle spasms at the injection site for up to 24 to 48 hours after your injection, due to the trauma of the injection itself. Complications: Difficulty breathing, chest pain, shortness of breath, or any other life- threatening condition, call 911 or go to the nearest emergency room immediately! If you develop any of the following complications, call the pain clinic. For after hours, [...] swelling or redness around the injection site HOUSE OPERATOR documented in this encounter Medications at Time of Discharge Medication Sig Dispensed Refills Start Date End Date progesterone micronized (PROMETRIUM) 100 mg Capsule TAKE [...] daily. RESVERATROL ORAL Take by mouth daily. ALPRAZolam (XANAX) 0.25 mg tabletIndications:Insom adis, unspecified type TAKE 1 TO 2 TABLETS(0.25 TO 0.5 MG) BY MOUTH EVERY NIGHT NEEDED FOR ANXIETY OR INSOMNIA 30 Tablet 12/05/2022 10/08/2023 buPROPion HCL (WELLBUTRIN XL) 150 mg Extended Release 24 hour tabletIndications:Mild episode of recurrent major depressive disorder,NAOMI (generalized anxiety disorder) Take 2 Tablets (300 mg) by mouth daily in the morning. 180 Tablet 1 12/05/2022 04/08/2023 montelukast (SINGULAIR) 10 mg tabletIndications:Mild intermittent extrinsic asthma without complication Take 1 Tablet (10 mg) by mouth 2 times daily. 180 Tablet 3 10/17/2022 01/14/2024 zolpidem (AMBIEN) 5 mg tabletIndications:Insom adis, unspecified type TAKE 1 TO 2 TABLETS(5 TO 10 MG) BY MOUTH EVERY NIGHT NEEDED FOR INSOMNIA 30 Tablet 1 08/07/2022 02/14/2023 escitalopram oxalate (LEXAPRO) 20 mg tabletIndications:Mild episode of recurrent major depressive disorder TAKE 1 TABLET(20 MG) BY MOUTH DAILY 90 Tablet 3 02/28/2022 06/05/2023 documented as of this encounter H&P Notes * Aj Hodges MD - 01/23/2023 9:10 AM CST [facility] PROCEDURE VISIT H&P UPDATE Jody Mason is a 52 y.o. female here for lateralizing to right [place] DANILO at C6-C7 without catheter. The patient has previous responded well with pain relief greater than 50% for over 3 months with epidural injection for similar pain. Patient understands the plans and wishes to proceed with previously discussed procedure as prior conservative therapy has failed. Patient does not report any major changes in medical history since last visit in our or other specialist office. Patient understands the plans and wishes to proceed withpreviously discussed procedure. Past Medical History: Diagnosis Date Anxiety Arthritis [...] HX CHOLECYSTECTOMY 2009 HX COCCYGECTOMY LAP CHOLECYSTECTOMY NE COLONOSCOPY FLX DX W/COLLJ SPEC WHEN PFRMD N/A 08/26/2020 COLONOSCOPY performed by Barrington Bueno MD at [facility] Allergies Allergen Reactions Morphine Headache Trazodone Other (See Comments) Nightmares Current Outpatient Medications Medication Sig Dispense Refill cyclobenzaprine (FLEXERIL) 10 mg tablet Take 1 Tablet (10 mg) by mouth 3 times daily as needed for Spasm. 30 Tablet 0 clobetasoL (TEMOVATE) 0.05 % Solution Apply to affected area 2 times daily as needed for Other (SeeComment) (dermatitis). 50 mL 3 lisinopril-hydroCHLOROthiazide (ZESTORETIC) 10-12.5 mg tablet TAKE 1 TABLET BY MOUTH DAILY 90 Tablet 3 escitalopram oxalate (LEXAPRO) 20 mg tablet TAKE 1 TABLET(20 MG) BY MOUTH DAILY 90 Tablet 3 glucosamine/chondr evans A sod (OSTEO BI-FLEX ORAL) Take by mouth daily. cetirizine (ZyrTEC) 10 mg tablet Take 10 mg by mouth daily. ALPRAZolam (XANAX) 0.25 mg tablet TAKE 1 TO 2 TABLETS(0.25 TO 0.5 MG) BY MOUTH EVERY NIGHT NEEDED FOR ANXIETY OR INSOMNIA 30 Tablet 0 buPROPion HCL (WELLBUTRIN XL) 150 mg Extended Release 24 hour tablet Take 2 Tablets (300 mg) by mouth daily in the morning. 180 Tablet 1 progesterone micronized (PROMETRIUM) 100 mg Capsule TAKE 1 CAPSULE BY MOUTH IN THE EVENING ESTRADIOL ORAL Take by mouth. testosterone 100 mg Pellet by Implant route. montelukast (SINGULAIR) 10 mg tablet Take 1 Tablet (10 mg) by mouth 2 times daily. 180 Tablet 3 naproxen (NAPROSYN) 500 mg tablet Take 1 Tablet (500 mg) by mouth 2 times daily. 180 Tablet 0 zolpidem (AMBIEN) 5 mg tablet TAKE 1 TO 2 TABLETS(5 TO 10 MG) BY MOUTH EVERY NIGHT NEEDED FOR INSOMNIA 30 Tablet 1 valACYclovir (VALTREX) 1 gram tablet Take 2 [...] TABLETS IN 24 HOURS 27 Tablet 3 RESVERATROL ORAL Take by mouth daily. COLLAGEN MISC by Misc.(Non-Drug; Combo Route) route daily. Current Facility-Administered Medications Medication Dose Route Frequency Provider Last Rate Last Admin dexAMETHasone (PF) (DECADRON) injection 15 mg 15 mg See Admin Instructions intra-proc ONE time Aj Hodges MD [COMPLETED] Iopamidol (ISOVUE-M 300) 300 mg iodine /mL (61 %) injection 0-3 mL 0-3 mL Epidural intra-proc ONE time Aj Hodges MD 1 mL at 01/23/23924 [COMPLETED] sodium chloride 0.9% vial - DILUENT 0-10 mL See Admin Instructions intra-proc ONE time Aj Hodges MD 1 mL at 01/23/23923 [COMPLETED] lidocaine PF 1% (XYLOCAINE MPF) injection 0-5 mL 0-5 mL Infiltration intra-proc ONE time Aj Hodges MD 3 mL at 01/23/23922 [COMPLETED] triamcinolone acetonide (KENALOG-40) injectable suspension 40 mg 40 mg Epidural intra-proc ONE time Aj Hodges MD 80 mg at 01/23/23924 lidocaine (XYLOCAINE MPF) 20 mg/mL (2%) cardiac injection 100 mg 5 mL See Admin Instructions intra-proc ONE time Aj Hodges MD ROS: no pertinent findings PHYSICAL EXAM BP 129/78 (BP Location: Right arm) Pulse 74 Resp 18 SpO2 98% Neuro: A/Ox3 Lungs: Equal chest rise bilaterally CV: regular pulse by pulse oximetry Mood: normal/pleasant FOLLOW-UP PLAN AFTER THIS PROCEDURE May repeat procedure after 3 months as needed Aj Hodges MD Anesthesiology and Pain Management HOUSE OPERATOR documented in this encounter OR Notes * Operative Report - Aj Hodges MD - 01/23/2023 9:10 AM CST Date: 01/23/2023 Procedure: 1) C6-7 interlaminar epidural steroid injection 2) Fluoroscopic guidance of needle placement Side: Midline Preoperative Diagnosis: Cervical radiculopathy C1-2 to C6-7 (M54.12) Postoperative Diagnosis: Same Indications for Procedure: Jody Mason is a 52 y.o. female with radicular neck pain, refractory to conservative treatment, presenting for a trial of cervical epidural steroid injection. Anesthesia: Local anesthesia DESCRIPTION OF PROCEDURE: After written informed consent the patient was positioned prone on the fluoroscopy table and the skin over posterior neck and shoulders was prepped with chloroprep x2 and draped with sterile towels. Fluoroscopy was used to identify the C6-C7 interlaminar space and the skinover this spot was anesthetized with 2 mL of 1% lidocaine using a 25 gauge 1.25 inch needle. Then an 20 ga gauge Touhy needle was advanced under fluoroscopic guidance and loss of resistance techniqueto the epidural space where there was loss of resistance to saline and negative aspiration of CSF or blood. Contrast was injected through the catheter and this delineated the spinal anatomy at this level. The AP view showed contrast to be on both sides of the midline and the lateral view showed thecontrast and the epidural needle to be in the posterior epidural space. There was no contrast in the intrathecal space. Permanent films were taken and placed in the chart. After negative aspiration 1.5 mL of PSNF and 80 mg of Kenalog was injected slowly through the needle in multiple small increments. There were no complications. Complications: None immediate EBL: None IVF: None Specimens: None Findings: Appropriate needle placement in AP and lateral views Pain Scores: Recorded in pain assessment flowsheet Disposition: Patient will follow up in the clinic in the next few weeks. Aj Hodges MD Anesthesiology and Pain Management HOUSE OPERATOR documented in this encounter Plan of Treatment Upcoming Encounters Date Type Department Care Team (Late st Contact Info) Description 11/24/2024 9:30 AM CDT Office Visit [facility] Internal Medicine Medical [place] [facility] [address] [address] Melani Franklin, DO [address] [place] [address] Scheduled Orders Name Type Priority Associated Diagnoses Orde r Schedule EPIDURAL STEROID INJECTION, CERVICAL/THORACIC Neurology Routine Cervical radiculopathy Added to HDF configuration to grandchildren will have ORD item [id number] populate with time. for 1 Occurrences starting 01/23/2023 until 01/23/2023 documented as of this encounter Procedures Procedure Name Priority Date/Time Associated Diagnosis Comments XR FLUORO NEEDLE GUIDANCE SPINE Routine 01/23/2023 9:27 AM PUMP HOUSE OPERATOR documented in this encounter Results * XR FLUORO NEEDLE GUIDANCE SPINE (01/23/2023 9:27 AM PUMP HOUSE OPERATOR) Narrative [facility] CHARISWV - 01/23/2023 9:28 AM PUMP HOUSE OPERATOR Order information only. ??Exam was auto-finalized. ?? Aj Hodges MD DIAGNOSTIC IMAGING O RDERABLES [facility] CLIA#[id number] [place] [address] documented in this encounter Visit Diagnoses Diagnosis Cervical radiculopathy Brachial neuritis or radiculitis nos documented in this encounter Administered Medications Inactive Administered Medications - up to 3 most recent administrations Medication Order MAR Action Action Date Dose Rate Site Iopamidol (ISOVUE-M 300) 300 mg iodine /mL (61 %) injection 0-3 mL 0-3 mL, Epidural, INTRA-PROCEDURE ONCE, 1 dose, Starting on Sun01/23/23 at 0910, Until Sun01/23/23 at 0925, Routine, Pre-Procedure Contrast Given 01/23/2023 9:25 AM PUMP HOUSE OPERATOR 1 mL lidocaine PF 1% (XYLOCAINE MPF) injection 0-5 mL 0-5 mL, Infiltration, INTRA-PROCEDURE ONCE, 1 dose, Starting on Sun01/23/23 at 0910, Until Sun01/23/23 at 0923, Routine, Pre-Procedure Given 01/23/2023 9:23 AM PUMP HOUSE OPERATOR 3 mL sodium chloride 0.9% vial - DILUENT 0-10 mL, See Admin Instructions, INTRA-PROCEDURE ONCE, 1 dose, Starting on Sun01/23/23 at 0910, Until Sun01/23/23 at 0924, Routine, Pre-Procedure Given 01/23/2023 9:24 AM PUMP HOUSE OPERATOR 1 mL Operative Site triamcinolone acetonide (KENALOG-40) injectable suspension 40 mg 40 mg, Epidural, INTRA-PROCEDURE ONCE, 1 dose, Starting on Sun01/23/23 at 0910, Until Sun01/23/23 at 0925, Routine, Pre-Procedure Given 01/23/2023 9:25 AM PUMP HOUSE OPERATOR 80 mg documented in this encounter Care Teams Flame Burner Relationship Specialty Start Date End Date Melani Franklin DO [address] [place] [address] [address] [place] [address] PCP - General Internal Medicine 01/02/17 documented as of this encounter
--- OUTSIDE RECORDS SUMMARY | 2024-02-21 16:29 | XMS_ITS | Encounter Summary ---
Author Organization [facility] Address [address] [place] [address] Care Team Providers Care Cvor Nurse Name Role Phone Melani Franklin Primary Care Provider [phone] Reason for Referral * Outpatient Services (Routine) - Closed Specialty Diagnoses / Procedures Referred By Tyrone baxter Referred To Contact Diagnoses Cervical radiculopathy Procedures EPIDURAL STEROID INJECTION, CERVICAL/THORACIC CT NJX DX/THER SBST INTRLMNR CRV/THRC W/[place] [address] [address] Referral ID Status Reason Start Date Expiration Date Visits Re quested Visits Authorized [id number] Closed 09/04/2023 12/03/2023 1 1 Reason for Visit * Outpatient Services (Routine) - Closed Specialty Diagnoses / Procedures Referred By Tyrone baxter Referred To Contact Diagnoses Cervical radiculopathy Procedures EPIDURAL STEROID INJECTION, CERVICAL/THORACIC CT NJX DX/THER SBST INTRLMNR CRV/THRC W/[place] [address] [address] Referral ID Status Reason Start Date Expiration Date Visits Re quested Visits Authorized [id number] Closed 09/04/2023 12/03/2023 1 1 Encounter Details Date Type Department Care Team (Late st Contact Info) Description 09/04/2023 10:11 AM CDT - 09/04/2023 11:59 PM CDT Hospital Encounter [facility] [address] [place] [address] [place] [address] [place] [address] Discharge Disposition: Home or Self [...] Sign Reading Time Taken Comments Blood Pressure 131/89 09/04/2023 11:34 AM CDT Pulse 75 09/04/2023 11:34 AM CDT Temperature - - Respiratory Rate 18 09/04/2023 11:34 AM CDT Oxygen Saturation 99% 09/04/2023 11:34 AM CDT Inhaled Oxygen Concentration - - Weight - - Height - - Body Mass Index - - documented in this encounter Discharge Instructions * Discharge Instructions* Shannen Ellsworth RN - 09/04/2023 10:15 AM CDT [facility] [place] Discharge Instructions Office [facility] is the most effective way to communicate with [facility] and we would like you to use [facility] to communicate about your injection as well. Dr. Hodges would like you to have a follow-up in the office in 4-6 weeks, which can be arranged prior to your discharge. 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 180 Tablet 3 10/17/2022 01/14/2024 documented as of this encounter H&P Notes * Aj Hodges MD - 09/04/2023 11:20 AM CDT [facility] PROCEDURE VISIT H&P UPDATE Jody Mason is a 53 y.o. female here for lateralizing to left IL DANILO at C6-C7 without catheter. The patient had previous epidural without satisfactory relief for expected duration and now repeating epidural with alternate approach. Patient understands the plans and wishes to [...] HX CHOLECYSTECTOMY 2009 HX COCCYGECTOMY LAP CHOLECYSTECTOMY CT COLONOSCOPY FLX DX W/COLLJ SPEC WHEN PFRMD N/A 08/26/2020 COLONOSCOPY performed by Barrington Bueno MD at [facility] GI LAB Allergies Allergen Reactions Morphine Headache Trazodone Other (See Comments) Nightmares Current Outpatient Medications Medication Sig Dispense Refill lisinopril-hydroCHLOROthiazide (ZESTORETIC) 10-12.5 mg tablet TAKE 1 [...] Last Admin [COMPLETED] dexAMETHasone (PF) (DECADRON) injection 15 mg 15 mg See Admin Instructions intra-proc ONE time Aj Hodges MD 15 mg at 09/04/23 1120 [COMPLETED] Iopamidol (ISOVUE-M 300) 300 mg iodine /mL (61 %) injection 0-3 mL 0-3 mL Epidural intra-proc ONE time Aj Hodges MD 0.5 mL at 09/04/23 112 [COMPLETED] sodium chloride 0.9% vial - DILUENT 0-10 mL See Admin Instructions intra-proc ONE time Aj Hodges MD 2.5 mL at 09/04/23 1120 [COMPLETED] lidocaine PF 1% (XYLOCAINE MPF) injection 0-5 mL 0-5 mL Infiltration intra-proc ONE time Aj Hodges MD 3 mL at 09/04/23 1120 lidocaine (XYLOCAINE MPF) 20 mg/mL (2%) cardiac injection 100 mg 5 mL See Admin Instructions intra-proc ONE time Aj Hodges MD ROS: no pertinent findings PHYSICAL EXAM BP 130/84 Resp (!) 1 Neuro: A/Ox3 Lungs: Equal chest rise bilaterally CV: regular pulse by pulse oximetry Mood: normal/pleasant FOLLOW-UP PLAN AFTER THIS PROCEDURE Follow-up with ISAURO in 4 to 6 weeks Aj Hodges MD Anesthesiology and Pain Management documented in this encounter OR Notes * Operative Report - Aj Hodges MD - 09/04/2023 11:20 AM CDT Date: 09/04/2023 Procedure: 1) C6-7 interlaminar epidural steroid injection 2) Fluoroscopic guidance of needle placement Side: Midline Preoperative Diagnosis: Cervical radiculopathy C1-2 to C6-7 (M54.12) Postoperative Diagnosis: Same Indications for Procedure: Jody Mason is a 53 y.o. female with radicular neck pain, refractory [...] negative aspiration 1.5 mL of PSNF and 15 mg of Decadron was injected slowly through the needle in [...] [facility] Internal Medicine Medical [facility] [address] [facility] [address] [address] Melani Franklin, [address] [facility] [address] [place] [address] Scheduled Orders Name Type Priority Associated Diagnoses Orde r Schedule EPIDURAL STEROID INJECTION, CERVICAL/THORACIC Neurology Routine Cervical radiculopathy Added to HDF configuration to grandchildren will have ORD item [id number] populate with time. for 1 Occurrences starting 09/04/2023 until 09/04/2023 documented as of this encounter Procedures Procedure Name Priority Date/Time Associated Diagnosis Comments XR FLUORO NEEDLE GUIDANCE SPINE Routine 09/04/2023 11:23 AM CDT documented in this encounter Results * XR FLUORO NEEDLE GUIDANCE SPINE (09/04/2023 11:23 AM CDT) Narrative [facility] - 09/04/2023 11:23 AM CDT Order information only. ??Exam was auto-finalized. ?? Aj Hodges MD DIAGNOSTIC IMAGING O RDERABLES [facility] CLIA# [id number] [facility] [address] [place] [address] documented in this encounter Visit Diagnoses Diagnosis Cervical radiculopathy Brachial neuritis or radiculitis nos documented in this encounter Administered Medications Inactive Administered Medications - up to 3 most recent administrations Medication Order MAR Action Action Date Dose Rate Site dexAMETHasone (PF) (DECADRON) injection 15 mg 15 mg, See Admin Instructions, INTRA-PROCEDURE ONCE, 1 dose, Starting on Sun09/04/23 at 1120, Until Sun09/04/23 at 1120, Routine, Pre-Procedure Given 09/04/2023 11:20 AM CDT 15 mg Operative Site Iopamidol (ISOVUE-M 300) 300 mg iodine /mL (61 %) injection 0-3 mL 0-3 mL, Epidural, INTRA-PROCEDURE ONCE, 1 dose, Starting on Tu09/04/23 at 1120, Until Tu09/04/23 at 1120, Routine, Pre-Procedure Contrast Given 09/04/2023 11:20 AM CDT 0.5 mL lidocaine PF 1% (XYLOCAINE MPF) injection 0-5 mL 0-5 mL, Infiltration, INTRA-PROCEDURE ONCE, 1 dose, Starting on 09/04/23 at 1120, Until Tu09/04/23 at 1120, Routine, Pre-Procedure Given 09/04/2023 11:20 AM CDT 3 mL sodium chloride 0.9% vial - DILUENT 0-10 mL, See Admin Instructions, INTRA-PROCEDURE ONCE, 1 dose, Starting on Sun09/04/23 at 1120, Until Sun09/04/23 at 1120, Routine, Pre-Procedure Given 09/04/2023 11:20 AM CDT 2.5 mL Operative Site documented in this encounter Care Teams Cvor Nurse Relationship Specialty Start Date End Date Melani Franklin DO [address] [place] [id number] PCP - General Internal Medicine 01/02/17 documented as of this encounter
--- OUTSIDE RECORDS SUMMARY | 2024-02-21 16:29 | XMS_ITS | Encounter Summary ---
Author Organization [facility] Address [address] [place] [address] Care Team Providers Care Senior Sharepoint Developer Name Role Phone Melani Franklin DO Primary Care Provider [phone] Reason for Referral * Outpatient Services (Routine) - Closed Specialty Diagnoses / Procedures Referred By Tyrone baxter Referred To Contact Diagnoses Cervical radiculopathy at C6 Procedures PAIN PROCEDURE ND NJX DX/THER AGT PVRT FACET JT CRV/THRC 1 LEVEL ND NJX DX/THER AGT PVRT FACET JT CRV/[place] 2[place] [address] [address] Referral ID Status Reason Start Date Expiration Date Visits Re quested Visits Authorized [id number] Closed 10/23/2022 01/02/2023 1 1 Reason for Visit * Auth/Cert (Routine) Specialty Diagnoses / Procedures Referred By Tyrone baxter Referred To Contact Pain Management Aj Hodges [place] [id number] [place] [phone] [facility] Procedures [facility] [address] [place] [address] Referral ID Status Reason Start Date Expiration Date Visits Re quested Visits Authorized [id number] 1 1 Encounter Details Date Type Department Care Team (Late st Contact Info) Description 10/23/2022 10:12 AM CDT - 10/23/2022 11:59 PM CDT Hospital Encounter [facility] Imaging Services [facility] [address] [place], [place] [address] [place] [address] [facility] [address] [place] [address] Discharge Disposition: Home or Self [...] Sign Reading Time Taken Comments Blood Pressure 120/72 10/23/2022 11:03 AM CDT Pulse 65 10/23/2022 11:03 AM CDT Temperature - - Respiratory Rate 16 10/23/2022 11:03 AM CDT Oxygen Saturation 99% 10/23/2022 11:03 AM CDT Inhaled Oxygen Concentration - - Weight - - Height - - Body Mass Index - - documented in this encounter Discharge Instructions * Discharge Instructions* Mary Waterman GN - 10/23/2022 10:57 AM CDT [facility] [place] Discharge Instructions Office Activity: You should take it easy for the remainder of today. Please remember, this was a diagnostic test using just local medication. Once the local medication wears off, usually a few hours, the pain will return. Having at least 80% of your pain relieved gives us the confidence this is the source of your pain and we will proceed with the next step. When thepain returns, you may use ice for the day of the procedure, for 15 minutes of every hour, and ice or heat, starting the day after the procedure, for 15 minutes out of every hour. You may also use Tylenol/Advil as tolerated to help with the pain. The day following the procedure: If you are on Blood Thinners and you held them, you may start these again, the day following the procedure. You can resume your normal activities, just keep in mind, if you do something and it starts to hurt, stop doing that activity. The bandage may come off For the next 48 hours You are asked to refrain from soaking in any water, such as: swimming, whirlpools, hot tubs, and baths; SHOWERING IS FINE No lifting more than 10 pounds Physical Therapy may be resumed 48 hours after the injection. Please ask about any specific physical therapy questions. If you routinely need antibiotic prophylaxis please continue these as prescribed by your primary care physician. * If you have a fever greater than 100 degrees, chills, severe headache, redness or swelling at theinjection site - call . * If you feel you are experiencing a life-threatening emergency or other serious symptoms (abrupt progressive weakness in the legs or loss of bowel/bladder control), please call 911 or go immediately to the Emergency Room. documented in this encounter Medications at Time [...] daily. RESVERATROL ORAL Take by mouth daily. montelukast (SINGULAIR) 10 mg tabletIndications:Mild intermittent extrinsic asthma without complication Take 1 Tablet (10 mg) by mouth 2 times daily. 180 Tablet 3 10/17/2022 01/14/2024 buPROPion HCL (WELLBUTRIN XL) 150 mg Extended Release 24 hour tabletIndications:Mild episode of recurrent major depressive disorder,NAOMI (generalized anxiety disorder) TAKE 1 TABLET(150 MG) BY MOUTH DAILY IN THE MORNING 90 Tablet 1 09/13/2022 12/05/2022 ALPRAZolam (XANAX) 0.25 mg tabletIndications:Insom adis, unspecified type TAKE 1 TO 2 TABLETS(0.25 TO 0.5 MG) BY MOUTH EVERY NIGHT NEEDED FOR ANXIETY OR INSOMNIA 30 Tablet 08/24/2022 12/05/2022 zolpidem (AMBIEN) 5 mg tabletIndications:Insom adis, unspecified type TAKE 1 TO 2 TABLETS(5 TO 10 MG) BY MOUTH EVERY NIGHT NEEDED FOR INSOMNIA 30 Tablet 1 08/07/2022 02/14/2023 cyclobenzaprine (FLEXERIL) 10 mg tabletIndications:Neck pain, bilateral Take 1 Tablet (10 mg) by mouth 3 times daily as needed for Spasm. 30 Tablet 05/03/2022 01/04/2023 escitalopram oxalate (LEXAPRO) 20 mg tabletIndications:Mild episode of recurrent major depressive disorder TAKE 1 TABLET(20 MG) BY MOUTH DAILY 90 Tablet 3 02/28/2022 06/05/2023 montelukast (SINGULAIR) 10 mg tablet TAKE 1 TABLET(10 MG) BY MOUTH DAILY AT BEDTIME 90 Tablet 3 10/30/2021 10/29/2022 documented as of this encounter H&P Notes * Aj Hodges MD - 10/23/2022 11:00 AM CDT [facility] SPINE AND PAIN MANAGEMENT [facility] PROCEDURE H&P Jody Mason is a 52 y.o. female here for Bilateral C4-C5 and C5-C6 medial branch block usingfluoroscopy. Patient does not report any other major changes in medical history since last visit, pain seems to be facet joint (z-joint) mediated that is aggravated by hyperextension, rotation or lateral bending confirmed by provocative testing. Patient understands the plans and wishes to proceed with previously discussed procedure as prior conservative therapy has failed. Greater than 80% pain relief with previous MBB: yes Past Medical History: Diagnosis Date Anxiety Arthritis [...] HX CHOLECYSTECTOMY 2009 HX COCCYGECTOMY LAP CHOLECYSTECTOMY ND COLONOSCOPY FLX DX W/COLLJ SPEC WHEN PFRMD N/A 08/26/2020 COLONOSCOPY performed by Barrington Bueno MD at [facility] GI LAB Allergies Allergen Reactions Morphine Headache Trazodone Other (See Comments) Nightmares Current Outpatient Medications Medication Sig Dispense Refill progesterone micronized (PROMETRIUM) 100 mg Capsule TAKE [...] mouth 2 times daily. 180 Tablet 0 buPROPion HCL (WELLBUTRIN XL) 150 mg Extended Release 24 hour tablet TAKE 1 TABLET(150 MG) BY MOUTHDAILY IN THE MORNING 90 Tablet 1 ALPRAZolam (XANAX) 0.25 mg tablet TAKE 1 TO 2 TABLETS(0.25 TO 0.5 MG) BY MOUTH EVERY NIGHT NEEDED FOR ANXIETY OR INSOMNIA 30 Tablet 0 zolpidem (AMBIEN) 5 mg tablet TAKE 1 TO 2 TABLETS(5 TO 10 MG) BY MOUTH EVERY NIGHT NEEDED FOR INSOMNIA 30 Tablet 1 valACYclovir (VALTREX) 1 gram tablet Take 2 Tablets by mouth 2 times daily. 4 Tablet 3 cyclobenzaprine (FLEXERIL) 10 mg tablet Take 1 Tablet (10 mg) by mouth 3 times daily as needed for Spasm. 30 Tablet 0 omeprazole (PriLOSEC) 20 mg Capsule, Delayed Release(E.C.) TAKE ONE CAPSULE BY MOUTH DAILY 90 Capsule 3 escitalopram oxalate (LEXAPRO) 20 mg tablet TAKE 1 TABLET(20 MG) BY MOUTH DAILY 90 Tablet 3 diazePAM (VALIUM) 5 mg tablet TAKE DIRECTED UPON ARRIVAL FOR PROCEDURE AND THEN EVERY 6 HOURS ASNEEDED POST-OP turmeric root extract 500 mg Capsule Take 1 Capsule by mouth. albuterol sulfate 90 mcg/Actuation inhaler INHALE 2 PUFFS BY MOUTH EVERY 6 HOURS NEEDED FOR SHORTNESS OF BREATH 8.5 Gram 0 montelukast (SINGULAIR) 10 mg tablet TAKE 1 TABLET(10 MG) BY MOUTH DAILY AT BEDTIME 90 Tablet 3 Biotin 1 mg Tablet Take by mouth. [...] Frequency Provider Last Rate Last Admin [COMPLETED] lidocaine PF 1% (XYLOCAINE MPF) injection 2-4 mL 2-4 mL Infiltration intra-proc ONE time Aj Hodges MD 4 mL at 10/23/22 1118 [COMPLETED] lidocaine PF 2% (XYLOCAINE MPF) injection 5 mL 5 mL See Admin Instructions intra-proc ONE time Aj Hodges MD 5 mL at 10/23/22 1118 lidocaine (XYLOCAINE MPF) 20 mg/mL (2%) cardiac injection 100 mg 5 mL See Admin Instructions intra-proc ONE time Aj Hodges MD ROS: no pertinent findings PHYSICAL EXAM BP 120/72 (BP Location: Right arm) Pulse 65 Resp 16 LMP (LMP Unknown) SpO2 99% Neuro: A/Ox3 Lungs: Equal chest rise bilaterally CV: regular pulse by pulse oximetry Mood: normal/pleasant Neck: Paraspinal muscle tenderness, facet loading positive FOLLOW-UP PLAN AFTER THIS PROCEDURE RFA per protocol RF Needle: 100 mm 20 ga Oral Sedation: Xanax 1 mg and Percocet 10/325 mg Aj Hodges MD Anesthesiology and Pain Management documented in this encounter OR Notes * Operative Report - Aj Hodges MD - 10/23/2022 11:00 AM CDT DATE OF SURGERY: 10/23/2022 TITLE OF PROCEDURE: Cervical diagnostic Medial Branch Block #2/2 INDICATION: Facet related pain by history and physical exam. Pain is facet joint (z-joint) mediateddisease that is aggravated by hyperextension, rotation or lateral bending. This was confirmed by provocative testing. Greater than 80% pain relief was obtained by the first diagnostic block of these nerves: yes LEVELS TREATED: C4-C5 and C5-C6 SIDE: Bilateral PREOPERATIVE DIAGNOSES: Cervical spondylosis POSTOPERATIVE DIAGNOSES: Same ANESTHESIA: Local DESCRIPTION OF OPERATIVE PROCEDURE: The importance of doing the procedure without sedation was discussed with the patient again as was the possibility of pain during the procedure. Informed consent was obtained. An IV was not placed. The patient was brought to the procedure room and they positioned themselves to their comfort and optimal positioning for procedure (Prone). Time-out was conducted with all members of the care team. Standard ASA monitors were placed. Standard prep and drape were performed. The appropriate level of the lumbar spine was identified under fluoroscopy. Superficial anesthesia was provided by 0.5 mL of 1%Lidocaine using a 1.5 inch 25 gauge hypodermic needle. Following this using an ipsilateral oblique and AP fluoroscopic technique, a 3.5 inch 25 gauge spinal needle was guided to the cervical pillar of each level. Next 0.3 mL of 2% Lidocaine was injected after negative aspiration at each level. The needles were then withdrawn. The surgical site preparation was washed off of the patient. Band- Aids were applied as needed. The patient was brought to the recovery area. The patient did very well and the procedure results were discussed. Standard discharge instructions were given to the patient. Thepatient knows how to contact the clinic should they have any questions or problems. Preprocedural pain score was 5/10 Post procedural pain score was 0/10 Greater than 80% pain relief was obtained with local anesthetic. COMPLICATIONS: none EBL: Minimal URINE OUTPUT: Not monitored FLUIDS: None PLAN: If the patient received significant pain relief of the treated area in a period 2-6 hours after the procedure while conducting normal pain-provoking activities, the patient will then be scheduled for a second MBB or RF denervation of the same levels on the same side (or patients most painful side). There is no expectation that the patient will receive pain relief past the 2-6 hours time frame of the local anesthetic. Aj Hodges MD Anesthesiology and Pain Management documented in this encounter Plan of Treatment Upcoming Encounters Date Type Department Care Team (Late st Contact Info) Description 11/24/2024 9:30 AM CDT Office Visit [facility] Internal Medicine Medical [place] A [facility] [address] [facility] [address] [address] Noemi Melani Linda, DO [address] [facility] [address] [place] [address] Scheduled Orders Name Type Priority Associated Diagnoses Orde r Schedule PAIN PROCEDURE Neurology Routine Cervical radiculopathy at C6 Added to HDF configuration to grandchildren will have ORD item [id number] populate with time. for 1 Occurrences starting 10/23/2022 until 10/23/2022 documented as of this encounter Procedures Procedure Name Priority Date/Time Associated Diagnosis Comments XR FLUORO NEEDLE GUIDANCE SPINE Routine 10/23/2022 11:22 AM CDT documented in this encounter Results * XR FLUORO NEEDLE GUIDANCE SPINE (10/23/2022 11:22 AM CDT) Narrative [facility] - 10/23/2022 11:22 AM CDT Order information only. ??Exam was auto-finalized. ?? Aj Hodges MD DIAGNOSTIC IMAGING O RDERABLES [facility] - [facility] CLIA#[id number] [place], [place] [id number] documented in this encounter Visit Diagnoses Diagnosis Cervical radiculopathy at C6 Brachial neuritis or radiculitis nos documented in this encounter Administered Medications Inactive Administered Medications - up to 3 most recent administrations Medication Order MAR Action Action Date Dose Rate Site lidocaine PF 1% (XYLOCAINE MPF) injection 2-4 mL 2-4 mL, Infiltration, INTRA-PROCEDURE ONCE, 1 dose, Starting on Sun10/23/22 at 1100, Until Sun10/23/22 at 1118, Routine, Pre-Procedure Given 10/23/2022 11:18 AM CDT 3 mL lidocaine PF 2% (XYLOCAINE MPF) injection 5 mL 5 mL, See Admin Instructions, INTRA-PROCEDURE ONCE, 1 dose, Starting on Sun10/23/22 at 1100, Until Sun10/23/22 at 1118, Routine, Pre-Procedure Given 10/23/2022 11:18 AM CDT 5 mL Operative Site documented in this encounter Care Teams Senior Sharepoint Developer Relationship Specialty Start Date End Date Melani Franklin DO [address] [place] [id number] PCP - General Internal Medicine 01/02/17 documented as of this encounter
--- OUTSIDE RECORDS SUMMARY | 2024-02-21 16:29 | XMS_ITS | Encounter Summary ---
Author Organization [facility] Address [address] [place] [address] Care Team Providers Care Washer And Crusher Tender Name Role Phone Melani Franklin DO Primary Care Provider [phone] Reason for Referral * Outpatient Services (Routine) - Closed Specialty Diagnoses / Procedures Referred By Tyrone baxter Referred To Contact Diagnoses Cervical radiculopathy Procedures EPIDURAL STEROID INJECTION, CERVICAL/THORACIC GA NJX DX/THER SBST INTRLMNR CRV/THRC W/IMG GDN Aj Hodges MD [id number] [place] [address] Referral ID Status Reason Start Date Expiration Date Visits Re quested Visits Authorized [id number] Closed 01/23/2023 04/23/2023 1 1 Encounter Details Date Type Department Care Team (Latest Contact Info) Description 01/01/[address] [facility] SPINE [facility] PAIN MANAGEMENT [address] [address] Chely Perdomo Cervical radiculopathy (Primary Dx) Social History Tobacco Use Types [...] Description 11/24/2024 9:30 AM CDT Office Visit [facility] Internal Medicine Medical [place] [address] [facility] [address] [address] Melani Franklin DO [address] [facility] [address] [place] [address] Scheduled Orders Name Type Priority Associated Diagnoses Orde r Schedule EPIDURAL STEROID INJECTION, CERVICAL/THORACIC Neurology Routine Cervical radiculopathy 1 Occurrences starting 01/01/2023 until 01/02/2024 documented as of this encounter Visit Diagnoses Diagnosis Cervical radiculopathy- Primary Brachial neuritis or radiculitis nos documented in this encounter Care Teams Washer And Crusher Tender Relationship Specialty Start Date End Date Melani Franklin DO [address] [facility] [address] [place], [place] [id number] PCP - General Internal Medicine 01/02/17 documented as of this encounter
--- OUTSIDE RECORDS SUMMARY | 2024-02-21 16:29 | XMS_ITS | Encounter Summary ---
Author Organization [facility] Address [address] [place] [address] Care Team Providers Care Podiatry Assistant Name Role Phone Melani Franklin DO Primary Care Provider Reason for Visit * Reason Onset Date Comments Post Procedure 12/25/2022 Encounter Details Date Type Department Care Team (Late st Contact Info) Description 12/25/2022 Telephone [facility] SPINE AND PAIN MANAGEMENT [facility] [id number] [place] [address] [place] [address] [address] Post Procedure Social History Tobacco Use Types Packs/Day Years [...] encounter Miscellaneous Notes * Telephone Encounter - Cecily Reddy - 12/25/2022 9:00 AM CDT Call 12/25/2022 9:00 AM Name: Jody Mason Call placed and Jody answered the phone. This RN identified self and the purpose of the call was to check on how the patient is doing following the procedure. Have you been experiencing any fever, chills, redness or swelling at the injection site? no Any other new concerns? no How would you rate your pain relief at this time? Less than 50% pain relief Did you have increased level of function, if yes please explain: able to drive a little better Any improvement in quality of life? yes if yes please explain: Improved sleep Have you been started on antibiotics for any reason? no if HTN: Since your injection what has your blood pressure been running: unsure Based on these results, we are bringing you in to follow up with Dr Hodges 01/01/23 @ 1030 Verified with patient contact information for Dr. Hodges was shared. Instructed to contact us with any questions or concerns at [phone] option 6 documented in this encounter Plan of Treatment Upcoming Encounters Date Type Department Care Team (Late st Contact Info) Description 11/24/2024 9:30 AM CDT Office Visit [facility] Internal Medicine Medical [place] [facility] [address] [address] Melani Franklin DO [address] [place], [place] [id number] documented as of this encounter Visit Diagnoses Not on filedocumented in this encounter Care Teams Podiatry Assistant Relationship Specialty Start Date End Date Melani Franklin DO [address] [place] [address] PCP - General Internal Medicine 01/02/17 documented as of this encounter
--- OUTSIDE RECORDS SUMMARY | 2024-02-21 16:29 | XMS_ITS | Encounter Summary ---
Author Organization [facility] Address [address] [place] [address] Care Team Providers Care Certified Corporate Travel Executive Name Role Phone Melani Franklin DO Primary Care Provider [phone] Reason for Visit * Reason Comments Med Refill Encounter Details Date Type Department Care Team (Late st Contact Info) Description 02/14/2023 Refill [facility] Internal Medicine Medical [facility] [address] [address] Leigha Melendez MD [address] [facility] [place] [address] Insomnia, unspecified type Social History Tobacco Use [...] encounter Miscellaneous Notes * Telephone Encounter - Trisha Dela Cruz RN - 02/14/2023 11:27 AM DOT COMPLIANCE SPECIALIST 11:27 AM 02/14/2023 Date of last visit addressing condition(s) being treated: 10/17/22 Appointments for Next 365 Days 02/14/2023 - 02/14/2024 Date Visit Type Length Department Provider 02/15/2023 1:15 PM TELEPHONE CHECK UP 15 min [facility] Imaging Services [facility] PAIN FOLLOW UP CALL Appointment Notes: follow up after DANILO 10/23/2023 10:30 AM PHYSICAL ESTABLISHED 30 min [facility] Internal Medicine [facility] A [facility] [address] Mleani Franklin DO Appointment Notes: Physical Correct Pharmacy: Yes Trisha Dela Cruz, RN COMPLIANCE SPECIALIST documented in this encounter Plan of Treatment Upcoming Encounters Date Type Department Care Team (Late st Contact Info) Description 11/24/2024 9:30 AM CDT Office Visit [facility] Internal Medicine [facility] [place] [address] [address] Melani Franklin DO [address] [place] [address] documented as of this encounter Visit Diagnoses Diagnosis Insomnia, unspecified type documented in this encounter Care Teams Certified Corporate Travel Executive Relationship Specialty Start Date End Date Melani Franklin DO [address] [place] [address] PCP - General Internal Medicine 01/02/17 documented as of this encounter
--- OUTSIDE RECORDS SUMMARY | 2024-02-21 16:29 | XMS_ITS | Encounter Summary ---
Author Organization [facility] Address [address] [place] [address] Care Team Providers Care Tax Collector Name Role Phone Melani Franklin DO Primary Care Provider Encounter Details Date Type Department Care Team (Late st Contact Info) Description 09/04/2023 External Device Data STL ABSTRACTION Provider, Abstract [...] Description 11/24/2024 9:30 AM CDT Office Visit [facility] Internal Medicine Medical [place] [facility] [address] [facility] [address] [address] Melani Franklin DO [address] [facility] [address] [place] [address] documented as of this encounter Visit Diagnoses Not on filedocumented in this encounter Care Teams Tax Collector Relationship Specialty Start Date End Date Melani Franklin DO [address] [facility] [address] [place] [address] PCP - General Internal Medicine 01/02/17 documented as of this encounter
--- OUTSIDE RECORDS SUMMARY | 2024-02-21 16:29 | XMS_ITS | Encounter Summary ---
Author Organization [employer] Address [address] [place] [address] Care Team Providers Care Bull Bucker Name Role Phone Melani Franklin DO Primary Care Provider [phone] Reason for Visit * Reason Onset Date Comments Follow Up 02/15/2023 Encounter Details Date Type Department Care Team (Late st Contact Info) Description 02/15/2023 Telephone [employer] [facility] [address] [place] [address] Yanelis Lombardo RN Follow Up Social History Tobacco Use Types Packs/Day Years [...] encounter Miscellaneous Notes * Telephone Encounter - Yanelis Lombardo RN - 02/15/2023 11:33 AM BAND TACKER Call 02/15/2023 11:33 AM Name: Jody Mason Call placed and Jody answered the phone. This RN identified self and the purpose of the call was to check on how the patient is doing following C6-7 DANILO injection. Have you been experiencing any fever, chills, redness or swelling at the injection site? no Any other new concerns? no How would you rate your pain relief at this time? Greater than 50% pain relief Pain Rating is: 1/10 at it's best 2/10 at it's worst 1/10 on average (0 = no pain and 10 = worst pain imaginable) Did you have increased level of function, if yes please explain: now able to do most everything with minimal to no pain Any improvement in quality of life? yes if yes please explain: Improved activity/walking ability Have you been started on antibiotics for any reason? no Based on these results, You may have this procedure repeated in 3 months Verified with patient contact information for Dr. Hodges was shared. Instructed to contact us with any questions or concerns at [phone] option 6 TACKER documented in this encounter Plan of Treatment Upcoming Encounters Date Type Department Care Team (Late st Contact Info) Description 11/24/2024 9:30 AM CDT Office Visit [facility] Internal Medicine Medical [facility] [address] [facility] [address] [address] Melani Franklin DO [address] [facility] [address] [place] [address] documented as of this encounter Visit Diagnoses Not on filedocumented in this encounter Care Teams Bull Bucker Relationship Specialty Start Date End Date Melani Franklin DO [address] [facility] [address] [place] [address] PCP - General Internal Medicine 01/02/17 documented as of this encounter
--- OUTSIDE RECORDS SUMMARY | 2024-02-21 16:29 | XMS_ITS | Encounter Summary ---
Author Organization [facility] Address [address] [place] [address] Care Team Providers Care Starter Cup Powder Mixer Name Role Phone Melani Franklin DO Primary Care Provider [phone] Encounter Details Date Type Department Care Team (Late st Contact Info) Description 04/01/2023 External Device Data STL ABSTRACTION Provider, Abstract [...] Description 11/24/2024 9:30 AM CDT Office Visit [facility] Internal Medicine Medical [place] [facility] [address] [facility] [address] [address] Melani Franklin DO [address] [facility] [address] [place] [address] documented as of this encounter Visit Diagnoses Not on filedocumented in this encounter Care Teams Starter Cup Powder Mixer Relationship Specialty Start Date End Date Melani Franklin DO [address] [facility] [place] [address] PCP - General Internal Medicine 01/02/17 documented as of this encounter
--- OUTSIDE RECORDS SUMMARY | 2024-02-21 16:29 | XMS_ITS | Encounter Summary ---
Author Organization [facility] Address [address] [place] [address] Care Team Providers Care Long Filler Cigar Roller Machine Name Role Phone Melani Franklin DO Primary Care Provider [phone] Encounter Details Date Type Department Care Team (Latest Contact Info) Description 02/15/2023 11:36 AM DB2 DBA - 02/15/2023 11:59 PM [facility] Encounter [facility] Imaging Services [facility] [address] [place] [address] Discharge Disposition: Home or Self Care Social [...] Sig Dispensed Refills Start Date End Date zolpidem (AMBIEN) 5 mg tabletIndications:Insom adis, unspecified [...] times daily. 180 Tablet 3 10/17/2022 01/14/2024 escitalopram oxalate (LEXAPRO) 20 mg tabletIndications:Mild episode of recurrent major depressive disorder TAKE 1 TABLET(20 MG) BY MOUTH DAILY 90 Tablet 3 02/28/2022 06/05/2023 documented as of this encounter Plan of Treatment Upcoming Encounters Date Type Department Care Team (Late st Contact Info) Description 11/24/2024 9:30 AM CDT Office Visit [facility] Internal Medicine Medical [place] A [place] [address] [facility] [address] [facility] [address] [address] Melani Franklin, [address] [facility] [address] [facility] [address] [place] [address] documented as of this encounter Visit Diagnoses Not on filedocumented in this encounter Care Teams Long Filler Cigar Roller Machine Relationship Specialty Start Date End Date Melani Franklin DO [address] [facility] [address] [place] [address] PCP - General Internal Medicine 01/02/17 documented as of this encounter
--- OUTSIDE RECORDS SUMMARY | 2024-02-21 16:29 | XMS_ITS | Encounter Summary ---
Author Organization [facility] Address [address] [place] [address] Care Team Providers Care Python Engineer Name Role Phone Melani Franklin DO Primary Care Provider [phone] Reason for Visit * Reason Comments Follow Up Patient here after b ilateral RFA with only 35% relief. Encounter Details Date Type Department Care Team (Late Contact Info) Description 01/01/2023 10:30 AM CDT Office Visit [facility] SPINE AND PAIN MANAGEMENT [address] [address] [place] [address] [address] Chronic right shoulder pain (Primary Dx); Cervical spondylosis without myelopathy; Cervical radiculopathy Social History Tobacco Use Types Packs/Day Years [...] Sign Reading Time Taken Comments Blood Pressure 118/80 01/01/2023 10:34 AM CDT Pulse - - Temperature - - Respiratory Rate - - Oxygen Saturation - - Inhaled Oxygen Concentration - - Weight 64.4 kg (142 lb) 01/01/2023 10:34 AM CDT Height 157.5 cm (5' 2 ) 01/01/2023 10:34 AM CDT Body Mass Index 25.97 01/01/2023 10:34 AM CDT documented in this encounter Progress Notes * Aj Hodges MD - 01/01/2023 10:59 AM CDT Images from the original note were not included. [facility] SPINE AND PAIN MANAGEMENT [facility] PATIENT VISIT PRIMARY DOCTOR: Melani Franklin DO DATE OF SERVICE: 01/01/2023 IMPRESSION: Jody Mason 52 y.o. female presenting for follow-up with a interval history as below for pain due to: ICD-10-CM ICD-9-CM 1. Chronic right shoulder pain M25.511 719.41 XR SHOULDER 2+ VW RIGHT G89.29 338.29 2. Cervical spondylosis without myelopathy M47.812 721.0 3. Cervical radiculopathy M54.12 723.4 PLAN: Right shoulder x-ray Repeat C6-C7 interlaminar epidural injection, left paramedian approach May need right glenohumeral steroid injection INTERVAL HISTORY: Ms. Jody Mason is following up after cervical RFA procedure. Patient reports significant pain relief after RFA procedure especially with rotation, continues to have some pain with Spurling's on the right that goes into her shoulder and upper arm. She also has positive Neer's and Mayo test on the right Overall, patient reports greater than 50% pain relief since last visit and with good improvement infunctionality. Past Medical History: Diagnosis Date Anxiety Arthritis [...] COLONOSCOPY performed by Barrington Bueno MD at [facility] Allergies Allergen Reactions Morphine [...] MG) BY MOUTH DAILY 90 Tablet 3 turmeric root extract 500 mg Capsule [...] Route Frequency Provider Last Rate Last Admin lidocaine (XYLOCAINE MPF) 20 mg/mL (2%) cardiac injection 100 mg 5 mL See Admin Instructions intra-proc ONE time Aj Hodges MD PHYSICAL EXAM: General: Patient is alert and oriented and in no obvious distress. Head: Normocephalic and atraumatic. Respiratory: Non labored breathing. Cardiac: Extremities warm with peripheral pulse present. Abdomen: Non-distended. Extremities: No edema in the lower extremities. Skin: No rashes or significant lesions. Psychological: Normal PAIN (NEURO/MUSCULOSKELETAL) PHYSICAL EXAM: Gait: Normal; Assist device: Assistive Device: None Sensory: Intact to light touch throughout upper extremity Motor: normal 5/5 strength in all tested muscle groups and no muscle wasting or atrophy. Reflexes: DTR 2 out of 4 of the biceps, brachioradialis, and triceps bilateral Cervical: right Spurling's maneuver Shoulder: right Hawkin's test and right Neer's test Treatment plan fully discussed and agreed upon with patient. All questions were answered. Aj Hodges MD Anesthesiology and Pain Management [facility] Spine and Pain Management Note: This note was created with the aid of dictation software and may have word substitutions or errors. documented in this encounter Miscellaneous Notes * Patient Instructions - Conor Chely K - 01/01/2023 10:57 AM CDT Your DANILO injection is scheduled for 01/23/23 with an arrival time of 8:40AM . Please be on time, aswe wish to honor everyone and their schedule. We know that things happen and if you arrive 15 minutes or more late, we will ask you to call the office to reschedule. The only exception will be a rareinstance when there is a known cancellation, then we will ask if you would like to come back for sha t time slot or reschedule to another day. To reschedule your procedure, please call the office, , to make those arrangements. Please note, you will be required to have a hammer driver for this appointment. Please bring your insurance card, hammer driver's license, and updated list of medications with you to the procedure. If you have anyquestions, please call our office at [phone]. This procedure will be done at the [facility] [place] [address] [address] ([address] to Spine and Pain Management.) documented in this encounter Plan of Treatment Upcoming Encounters Date Type Department Care Team (Late st Contact Info) Description 11/24/2024 9:30 AM CDT Office Visit [facility] Internal Medicine Medical [place] A [place] [address] [facility] [address] [address] Melani Franklin, DO [address] [facility] [address] [place] [address] documented as of this encounter Results * XR SHOULDER 2+ VW RIGHT (01/01/2023 11:16 AM CDT) Anatomical Region Laterality Modality Upper Extremity Computed Radiogr aphy 01/01/2023 11:1 6 AM CDT Impressions 01/01/2023 11:42 AM CDT Impression: Normal ?? DICTATION LOCATION: [address] Narrative 01/01/2023 11:42 AM CDT Right Shoulder 3 Views INDICATION: Chronic right shoulder pain FINDINGS: ?? No fracture of malalignment or bony lesion. Joint spaces are preserved. No joint effusion. No erosion or osteopenia. Procedure Note Rodríguez Long MD - 01/01/2023 Right Shoulder 3 Views INDICATION: Chronic right shoulder pain FINDINGS: No fracture of malalignment or bony lesion. Joint spaces are preserved. No joint effusion. No erosion or osteopenia. Impression: Normal DICTATION LOCATION: [address] Aj Hodges MD DIAGNOSTIC IMAGING O RDERABLES documented in this encounter Visit Diagnoses Diagnosis Chronic right shoulder pain- Primary Pain in joint, shoulder region Cervical spondylosis without myelopathy Cervical radiculopathy Brachial neuritis or radiculitis nos Chronic right shoulder pain Pain in joint, shoulder region documented in this encounter Care Teams Python Engineer Relationship Specialty Start Date End Date Melani Franklin DO [address] [facility] [address] [place] [address] PCP - General Internal Medicine 01/02/17 documented as of this encounter
--- OUTSIDE RECORDS SUMMARY | 2024-02-21 16:29 | XMS_ITS | Encounter Summary ---
Author Organization [facility] Address [address] [place] [address] Care Team Providers Care Foundation Director Name Role Phone Melani Franklin DO Primary Care Provider [phone] Encounter Details Date Type Department Care Team (Late st Contact Info) Description 03/31/2023 External Device Data STL ABSTRACTION Provider, Abstract [...] [facility] Internal Medicine Medical [place] [facility] [address] [facility] [address] [address] Melani Franklin DO [address] [facility] [address] [place] [address] documented as of this encounter Visit Diagnoses Not on filedocumented in this encounter Care Teams Foundation Director Relationship Specialty Start Date End Date Melani Franklin DO [address] [facility] [address] [place] [address] PCP - General Internal Medicine 01/02/17 documented as of this encounter
--- OUTSIDE RECORDS SUMMARY | 2024-02-21 16:29 | XMS_ITS | Encounter Summary ---
Author Organization [facility] Address [address] [place] [address] Care Team Providers Care Track Repairer Helper Name Role Phone Melani Franklin DO Primary Care Provider [phone] Encounter Details Date Type Department Care Team (Late st Contact Info) Description 04/04/2023 External Device Data STL ABSTRACTION Provider, Abstract [...] Description 11/24/2024 9:30 AM CDT Office Visit [facility] Internal Medicine Medical [place] A [facility] [address] [address] [address] Melani Franklin DO [address] [facility] [address] [place] [address] documented as of this encounter Visit Diagnoses Not on filedocumented in this encounter Care Teams Track Repairer Helper Relationship Specialty Start Date End Date Melani Franklin DO [address] [facility] [address] [place] [address] PCP - General Internal Medicine 01/02/17 documented as of this encounter
--- OUTSIDE RECORDS SUMMARY | 2024-02-21 16:29 | XMS_ITS | Encounter Summary ---
Author Organization [facility] Address [address] [place] [address] Care Team Providers Care Account Manager Employee Benefits Name Role Phone Melani Franklin DO Primary Care Provider [phone] Reason for Visit * Reason Comments Med Refill Encounter Details Date Type Department Care Team (Late st Contact Info) Description 04/06/2023 Refill [facility] Internal Medicine [facility] [address] [facility] [address] [place] [address] Melani Franklin DO [address] [address] Mild episode of recurrent major [...] Description 11/24/2024 9:30 AM CDT Office Visit [facility] Internal Medicine [facility] [address] [facility] [address] [place] [address] Melani Franklin DO [address] [facility] [address] [place] [address] documented as of this encounter Visit Diagnoses Diagnosis Mild episode of recurrent major depressive disorder NAOMI (generalized anxiety disorder) Generalized anxiety disorder documented in this encounter Care Teams Account Manager Employee Benefits Relationship Specialty Start Date End Date Melani Franklin DO [address] [place] [address] PCP - General Internal Medicine 01/02/17 documented as of this encounter
--- OUTSIDE RECORDS SUMMARY | 2024-02-21 16:29 | XMS_ITS | Encounter Summary ---
Author Organization [facility] Address [address] [place] [address] Care Team Providers Care Gunnery/Ordnance Officer Name Role Phone Melani Franklin DO Primary Care Provider [phone] Reason for Referral * Outpatient Services (Routine) - Closed Specialty Diagnoses / Procedures Referred By Tyrone baxter Referred To Contact Diagnoses Cervical radiculopathy Procedures EPIDURAL STEROID INJECTION, CERVICAL/THORACIC NH NJX DX/THER SBST INTRLMNR CRV/THRC W/IMG GDN Aj Hodges [place] [id number] [place] [address] Referral ID Status Reason Start Date Expiration Date Visits Re quested Visits Authorized [id number] Closed 09/04/2023 12/03/2023 1 1 Encounter Details Date Type Department Care Team (Latest Contact Info) Description 07/26/2023 Prep for Surgery [facility] SPINE AND PAIN MANAGEMENT [address] [address] Chely ePrdomo Cervical radiculopathy (Primary Dx) Social History Tobacco [...] AM CDT Office Visit [facility] Internal Medicine Medical [place] A [facility] [address] [facility] [address] [address] Melani Franklin DO [address] [facility] [address] [place] [address] Scheduled Orders Name Type Priority Associated Diagnoses Orde r Schedule EPIDURAL STEROID INJECTION, CERVICAL/THORACIC Neurology Routine Cervical radiculopathy 1 Occurrences starting 07/26/2023 until 07/25/2024 documented as of this encounter Visit Diagnoses Diagnosis Cervical radiculopathy- Primary Brachial neuritis or radiculitis nos documented in this encounter Care Teams Gunnery/Ordnance Officer Relationship Specialty Start Date End Date Melani Franklin DO [address] [facility] [address] [place], [place] [address] PCP - General Internal Medicine 01/02/17 documented as of this encounter
--- OUTSIDE RECORDS SUMMARY | 2024-02-21 16:29 | XMS_ITS | Encounter Summary ---
Author Organization [facility] Address [address] [place] [address] Care Team Providers Care Roll Up Operator Name Role Phone Melani Franklin DO Primary Care Provider Reason for Visit * Auth/Cert (Routine) Specialty Diagnoses / Procedures Referred By Tyrone t Referred [place] [address] [address] [facility] Pain Management Procedures [facility] [address] [place] [address] Referral ID Status Reason Start Date Expiration Date Visits Re quested Visits Authorized [id number] 1 1 Encounter Details Date Type Department Care Team (Late st Contact Info) Description 11/07/2022 9:18 AM CDT - 11/07/2022 11:59 PM CDT Hospital Encounter [facility] Imaging Services [facility] [address] [place] [address] [place] [address] [address] Discharge Disposition: Home or Self [...] [facility] Internal Medicine Medical [place] A [address] [facility] [address] [address] Melani Franklin DO [address] [facility] [address] [place] [address] documented as of this encounter Procedures Procedure Name Priority Date/Time Associated Diagnosis Comments XR FLUORO NEEDLE GUIDANCE SPINE Routine 11/07/2022 9:53 AM CDT documented in this encounter Results * XR FLUORO NEEDLE GUIDANCE SPINE (11/07/2022 9:53 AM CDT) Narrative [facility] ON[facility] - [facility] IMAGING [facility] - 11/07/2022 9:53 AM CDT Order information only. ??Exam was auto-finalized. ?? Aj Hodges MD DIAGNOSTIC IMAGING O RDERABLES [facility] ONCOLOGY [facility] - [facility] IMAGING [facility] CLIA#[id number] [place] [address] documented in this encounter Visit Diagnoses Not on filedocumented in this encounter Care Teams Roll Up Operator Relationship Specialty Start Date End Date Melani Franklin DO [address] [facility] [address] [place] [address] PCP - General Internal Medicine 01/02/17 documented as of this encounter
--- OUTSIDE RECORDS SUMMARY | 2024-02-21 16:29 | XMS_ITS | Encounter Summary ---
Author Organization [facility] Address [address] [place] [address] Care Team Providers Care Shellfish Processing Laborer Name Role Phone Melani Franklin DO Primary Care Provider [phone] Reason for Visit * Reason Comments Med Refill Encounter Details Date Type Department Care Team (Late st Contact Info) Description 06/04/2023 Refill [facility] Internal Medicine [facility] [address] [facility] [address] [place] [address] Melani Franklin, DO [address] [place] [address] Mild episode of recurrent major depressive disorder [...] Visit [facility] Internal Medicine [facility] [address] [facility] [address] [place] [address] Melani Franklin, DO [address] [facility] [address] [place] [address] documented as of this encounter Visit Diagnoses Diagnosis Mild episode of recurrent major depressive disorder documented in this encounter Care Teams Shellfish Processing Laborer Relationship Specialty Start Date End Date Melani Franklin DO [address] [place] [address] PCP - General Internal Medicine 01/02/17 documented as of this encounter
--- OUTSIDE RECORDS SUMMARY | 2024-02-21 16:29 | XMS_ITS | Encounter Summary ---
Author Organization [facility] Address [address] [place] [address] Care Team Providers Care Auditor/Quality Name Role Phone Melani Franklin Primary Care Provider [phone] Reason for Referral * Outpatient Services (Routine) - Closed Specialty Diagnoses / Procedures Referred By Tyrone baxter Referred To Contact Diagnoses Cervical radiculopathy at C6 Procedures RADIOFREQUENCY - THERMAL NM DSTR NROLYTC AGNT PARVERTEB FCT SNGL CRVCL/THORA NM DSTR NROLYTC AGNT PARVERTEB FCT ADDL CRVCL/THORAj Gillespie [place] [id number] [place] [phone] Referral ID Status Reason Start Date Expiration Date Visits Re quested Visits Authorized [id number] Closed 11/21/2022 01/02/2023 1 1 Reason for Visit * Outpatient Services (Routine) - Closed Specialty Diagnoses / Procedures Referred By Tyrone baxter Referred To Contact Diagnoses Cervical radiculopathy at C6 Procedures RADIOFREQUENCY - THERMAL NM DSTR NROLYTC AGNT PARVERTEB FCT SNGL CRVCL/THORA NM DSTR NROLYTC AGNT PARVERTEB FCT ADDL CRVCL/THOR[place] Aj Hodges [place] [id number] [place] [phone] Referral ID Status Reason Start Date Expiration Date Visits Re quested Visits Authorized [id number] Closed 11/21/2022 01/02/2023 1 1 Encounter Details Date Type Department Care Team (Late st Contact Info) Description 11/21/2022 9:02 AM CDT - 11/21/2022 11:59 PM CDT Hospital Encounter [facility] Imaging Services [facility] [address] [place] [address] [place] [address] [facility] [address] [place] [address] Discharge Disposition: Home or Self [...] Sign Reading Time Taken Comments Blood Pressure 130/80 11/21/2022 10:28 AM CDT Pulse 67 11/21/2022 10:28 AM CDT Temperature - - Respiratory Rate 16 11/21/2022 10:28 AM CDT Oxygen Saturation 98% 11/21/2022 10:28 AM CDT Inhaled Oxygen Concentration - - Weight - - Height - - Body Mass Index - - documented in this encounter Discharge Instructions * Discharge Instructions* Mary Waterman, GN - 11/21/2022 9:12 AM CDT [facility] [place] Discharge Instructions Office My [employer] is the most effective way to communicate with [facility] and we would like you to use My [employer] to communicate about your injection as well. Please go to [facility] to let us know you would like to schedule your post radiofrequency follow-up appointment with MEHRAN Fountain. Please keep this appointment as any non-emergent questions can be answered during this visit. Physical Therapy may be resumed 48 hours [...] begins to change color, notify the doctor [phone]. For the first 2 weeks you will [...] for pain (if no contraindication per your machine sweeper brush maker/aerial tram operator/PCP) Bath, showers, water activities: Do not soak in any kind of water for the next 24 hours. This will include bathtub, hot tub, [...] H&P Notes * Aj Hodges MD - 11/21/2022 10:00 AM CDT [facility] PROCEDURE H&P CC: chronic neck pain Jody Mason is an 52 y.o. female who presents with cervical spondylosis of Left C4-C5 and C5-C6, here for RFA procedure. HPI is unchanged from last office visit. Previous diagnostic MBB provided with greater than 80% pain relief at pathologic levels. Past Medical History: Diagnosis Date Anxiety Arthritis [...] HX CHOLECYSTECTOMY 2009 HX COCCYGECTOMY LAP CHOLECYSTECTOMY NM COLONOSCOPY FLX DX W/COLLJ SPEC WHEN PFRMD N/A 08/26/2020 COLONOSCOPY performed by Barrington Bueno MD at [facility] Allergies Allergen Reactions Morphine Headache Trazodone Other (See Comments) Nightmares Current Outpatient Medications Medication Sig Dispense Refill lisinopril-hydroCHLOROthiazide (ZESTORETIC) 10-12.5 mg tablet TAKE 1 TABLET BY MOUTH DAILY 90 Tablet 3 buPROPion HCL (WELLBUTRIN XL) 150 mg Extended [...] NIGHT NEEDED FOR INSOMNIA 30 Tablet 1 escitalopram oxalate (LEXAPRO) 20 mg tablet TAKE 1 TABLET(20 MG) BY MOUTH DAILY 90 Tablet 3 progesterone micronized (PROMETRIUM) 100 mg Capsule TAKE [...] Frequency Provider Last Rate Last Admin [COMPLETED] ALPRAZolam (XANAX) tablet 1 mg 1 mg Oral ONE time only Aj Hogdes MD 1 mg at 11/21/22924 [COMPLETED] oxyCODONE-acetaminophen (PERCOCET) 10-325 mg per tablet 1 Tablet 1 Tablet Oral ONE timeonly Aj Hodges MD 1 Tablet at 11/21/22924 dexAMETHasone (PF) (DECADRON) injection 10 mg 10 mg See Admin Instructions intra-proc ONE time Aj Hodges MD lidocaine PF 1% (XYLOCAINE MPF) injection 10 mL 10 mL Infiltration intra-proc ONE time Annette Hodges MD lidocaine PF 2% (XYLOCAINE MPF) injection 5 mL 5 mL See Admin Instructions intra-proc ONE time Aj Hodges MD lidocaine (XYLOCAINE MPF) 20 mg/mL (2%) cardiac injection 100 mg 5 mL See Admin Instructions intra-proc ONE time Aj Hodges MD ROS negative for all other systems except as in HPI BP (!) 152/77 (BP Location: Right arm) Pulse 79 Resp 16 SpO2 99% General: NAD Lungs: CTAB Heart: [...] be dictated separately. 2. Follow up with MEMBER OF TECHNICAL STAFF in 4-6 weeks Aj Hodges MD Anesthesiology and Pain Management documented in this encounter OR Notes * Operative Report - Aj Hodges MD - 11/21/2022 10:00 AM CDT PATIENT NAME: Jody Mason PATIENT DATE OF SURGERY: 11/21/2022 TITLE OF PROCEDURE: Cervical Radiofrequency Denervation of [...] [facility] Internal Medicine Medical [place] A [facility] [address] [facility] [address] [place] [address] Melani Franklin, [address] [facility] [address] [place] [address] Scheduled Orders Name Type Priority Associated Diagnoses Orde r Schedule RADIOFREQUENCY - THERMAL Neurology Routine Cervical radiculopathy at C6 Added to HDF configuration to grandchildren will have ORD item [id number] populate with time. for 1 Occurrences starting 11/21/2022 until 11/21/2022 documented as of this encounter Procedures Procedure Name Priority Date/Time Associated Diagnosis Comments XR FLUORO NEEDLE GUIDANCE SPINE Routine 11/21/2022 9:59 AM CDT documented in this encounter Results * XR FLUORO NEEDLE GUIDANCE SPINE (11/21/2022 9:59 AM CDT) Narrative [facility] ONCOLOGY SERVICES - [facility]AGING [place] - 11/21/2022 9:59 AM CDT Order information only. ??Exam was auto-finalized. ?? Aj Hodges MD DIAGNOSTIC IMAGING O RDERABLES [facility] ON[facility]Y [facility] - [facility] [place] CLIA#[id number] [place] [address] documented in this encounter Visit Diagnoses Diagnosis Cervical radiculopathy at C6 Brachial neuritis or radiculitis nos documented in this encounter Administered Medications Inactive Administered Medications - up to 3 most recent administrations Medication Order MAR Action Action Date Dose Rate Site ALPRAZolam (XANAX) tablet 1 mg 1 mg, Oral, ONE TIME ONLY, 1 dose, On Sun11/21/22 at 0845, Routine Given 11/21/2022 9:25 AM CDT 1 mg dexAMETHasone (PF) (DECADRON) injection 10 mg 10 mg, See Admin Instructions, INTRA-PROCEDURE ONCE, 1 dose, Starting on Sun11/21/22 at 0923, Until Sun11/21/22 at 0954, Routine, Pre-Procedure Given 11/21/2022 9:54 AM CDT 10 mg Operative Site lidocaine PF 1% (XYLOCAINE MPF) injection 10 mL 10 mL, Infiltration, INTRA-PROCEDURE ONCE, 1 dose, Starting on Sun11/21/22 at 0923, Until Sun11/21/22 at 0955, Routine, Pre-Procedure Given 11/21/2022 9:55 AM CDT 10 mL lidocaine PF 2% (XYLOCAINE MPF) injection 5 mL 5 mL, See Admin Instructions, INTRA-PROCEDURE ONCE, 1 dose, Starting on Sun11/21/22 at 0923, Until Sun11/21/22 at 0955, Routine, Pre-Procedure Given 11/21/2022 9:55 AM CDT 5 mL Operative Site oxyCODONE-acetaminophen (PERCOCET) 10-325 mg per tablet 1 Tablet 1 Tablet, Oral, ONE TIME ONLY, 1 dose, On Sun11/21/22 at 0845, Routine Given 11/21/2022 9:25 AM CDT 1 Tablet documented in this encounter Care Teams Auditor/Quality Relationship Specialty Start Date End Date Melani Franklin DO [address] [place] [address] [address] [place] [address] PCP - General Internal Medicine 01/02/17 documented as of this encounter
--- OUTSIDE RECORDS SUMMARY | 2024-02-21 16:29 | XMS_ITS | Encounter Summary ---
Author Organization [facility] Address [address] [place] [address] Care Team Providers Care Change Control Coordinator Name Role Phone Melani Franklin DO Primary Care Provider [phone] Reason for Visit * Reason Onset Date Comments Med Refill 12/05/2022 Encounter Details Date Type Department Care Team (Late st Contact Info) Description 12/05/2022 Telephone [facility] Internal Medicine Medical [facility] [address] [facility] [address] [address] Melani Franklin DO [address] [facility] [address] [place] [address] Med Refill Social History Tobacco Use Types Packs/Day Years [...] encounter Miscellaneous Notes * Telephone Encounter - Matilda, Nguyen Ashley - 12/05/2022 10:40 AM CDT Provider: Melani Franklin DO Next office visit: Visit date not found Caller: Jody Mason Message: Patient stated that Dr Page was suppose to increase her Bupropion from 1 a day to 2 a day, they pharmacy has not received this update yet and she is needing a refill . She is using [facility] on [address] Call-back Number: [phone] (home) documented in this encounter Plan of Treatment Upcoming Encounters Date Type Department Care Team (Late st Contact Info) Description 11/24/2024 9:30 AM CDT Office Visit [facility] Internal Medicine Medical [place] A [facility] [address] [facility] [address] [address] Melani Franklin DO [address] [facility] [address] [place] [address] documented as of this encounter Visit Diagnoses Diagnosis Mild episode of recurrent major depressive disorder NAOMI (generalized anxiety disorder) Generalized anxiety disorder documented in this encounter Care Teams Change Control Coordinator Relationship Specialty Start Date End Date Melani Franklin DO [address] [facility] [address] [place] [address] PCP - General Internal Medicine 01/02/17 documented as of this encounter
--- OUTSIDE RECORDS SUMMARY | 2024-02-21 16:29 | XMS_ITS | Encounter Summary ---
Author Organization [facility] Address [address] [place] [address] Care Team Providers Care Hematology Oncology Consultant Name Role Phone Melani Franklin DO Primary Care Provider [phone] Encounter Details Date Type Department Care Team (Late st Contact Info) Description 01/23/2023 8:46 AM PROCESS TECHNICIAN - 01/23/2023 11:59 PM [facility] Hospital Encounter [facility] Imaging Services [facility] [address] [place] [address] [place] [address] [facility] [address] [place] [address] Discharge Disposition: Home or Self [...] Description 11/24/2024 9:30 AM CDT Office Visit [facility] Internal Medicine Medical [facility] [address] [facility] [address] [address] Melani Franklin DO [address] [facility] [address] [place] [address] documented as of this encounter Procedures Procedure Name Priority Date/Time Associated Diagnosis Comments XR FLUORO NEEDLE GUIDANCE SPINE Routine 01/23/2023 9:27 AM PROCESS TECHNICIAN documented in this encounter Results * XR FLUORO NEEDLE GUIDANCE SPINE (01/23/2023 9:27 AM PROCESS TECHNICIAN) Narrative [facility] ON[facility]Y SERVICES - [facility] IMAGING [facility] - 01/23/2023 9:28 AM PROCESS TECHNICIAN Order information only. ??Exam was auto-finalized. ?? Aj Hodges MD DIAGNOSTIC IMAGING O RDERABLES [facility] ONCOL[facility]Y SERVICES - [facility] CLIA#[id number] [place] [address] documented in this encounter Visit Diagnoses Not on filedocumented in this encounter Care Teams Hematology Oncology Consultant Relationship Specialty Start Date End Date Melani Franklin DO [address] [facility] [address] [place] [address] PCP - General Internal Medicine 01/02/17 documented as of this encounter
--- OUTSIDE RECORDS SUMMARY | 2024-02-21 16:29 | XMS_ITS | Encounter Summary ---
Author Organization [facility] Address [address] [place] [address] Care Team Providers Care Order Department Supervisor Name Role Phone Melani Franklin DO Primary Care Provider [phone] Reason for Visit * Reason Comments Med Refill Encounter Details Date Type Department Care Team (Late st Contact Info) Description 11/30/2022 Refill [facility] Internal Medicine Medical [place] A [facility] [address] [facility] [address] [address] Melani Franklin DO [address] [address] Insomnia, unspecified type Social History [...] encounter Miscellaneous Notes * Telephone Encounter - Pia Michael - 12/01/2022 8:38 AM CDT Recent Visits Date Type Provider Dept 10/17/22 Office Visit Melani Franklin DO [facility] [place] A [facility] [address] 01/04/22 Office Visit Barbara Graham NP [facility] [place] A [facility] [address] 10/12/21 Office Visit Melani Franklin DO [facility] Int Med [place] A [place] 189 Showing recent visits within past 540 days with a meds authorizing provider and meeting all other requirements Future Appointments No visits were found meeting these conditions. Showing future appointments within next 150 days with a meds authorizing provider and meeting all other requirements Last refill 08/24/22 Quantity 30 Requested Prescriptions Pending Prescriptions Disp Refills ALPRAZolam 0.25 mg tablet (XANAX) [Pharmacy Med Name: ALPRAZOLAM 0.25MG TABLETS] 30 Tablet Sig: TAKE 1 TO 2 TABLETS(0.25 TO 0.5 MG) BY MOUTH EVERY NIGHT NEEDED FOR ANXIETY OR INSOMNIA documented in this encounter Plan of Treatment Upcoming Encounters Date Type Department Care Team (Late st Contact Info) Description 11/24/2024 9:30 AM CDT Office Visit [facility] Internal Medicine Medical [place] A [facility] [address] [facility] [address] [address] Melani Franlkin DO [address] [facility] [address] [place], [place] [address] documented as of this encounter Visit Diagnoses Diagnosis Insomnia, unspecified type documented in this encounter Care Teams Order Department Supervisor Relationship Specialty Start Date End Date Melani Franklin DO [address] [facility] [address] [place] [address] PCP - General Internal Medicine 01/02/17 documented as of this encounter
--- OUTSIDE RECORDS SUMMARY | 2024-02-21 16:29 | XMS_ITS | Encounter Summary ---
Author Organization [facility] Address [address] [place] [address] Care Team Providers Care Commissary Production Supervisor Name Role Phone Melani Franklin DO Primary Care Provider [phone] Encounter Details Date Type Department Care Team (Late st Contact Info) Description 07/24/2023 External Device Data STL ABSTRACTION Provider, Abstract [...] CDT Office Visit [facility] Internal Medicine Medical [place] A [facility] [address] [facility] [address] [address] Melani Franklin DO [address] [facility] [address] [place] [address] documented as of this encounter Visit Diagnoses Not on filedocumented in this encounter Care Teams Commissary Production Supervisor Relationship Specialty Start Date End Date Melani Franklin DO [address] [facility] [address] [place] [address] PCP - General Internal Medicine 01/02/17 documented as of this encounter
--- OUTSIDE RECORDS SUMMARY | 2024-02-21 16:29 | XMS_ITS | Encounter Summary ---
Author Organization [facility] Address [address] [place] [address] Care Team Providers Care Office Support Associate Name Role Phone Melani Franklin DO Primary Care Provider [phone] Encounter Details Date Type Department Care Team (Late st Contact Info) Description 09/04/2023 11:07 AM CDT - 09/04/2023 11:59 PM CDT Hospital Encounter [facility] Imaging Services [facility] [address] [place] [address] [place] [address] [address] Discharge Disposition: Home or Self [...] Description 11/24/2024 9:30 AM CDT Office Visit [facility] Internal Medicine Medical [place] A [facility] [address] [facility] [address] [place] [address] Melani Franklin DO [address] [facility] [address] [place] [address] documented as of this encounter Procedures Procedure Name Priority Date/Time Associated Diagnosis Comments XR FLUORO NEEDLE GUIDANCE SPINE Routine 09/04/2023 11:23 AM CDT documented in this encounter Results * XR FLUORO NEEDLE GUIDANCE SPINE (09/04/2023 11:23 AM CDT) Narrative [facility] - 09/04/2023 11:23 AM CDT Order information only. ??Exam was auto-finalized. ?? Aj Hodges MD DIAGNOSTIC IMAGING O RDERABLES [facility] CLIA# [id number] [facility] [place], [address] [place] [address] documented in this encounter Visit Diagnoses Not on filedocumented in this encounter Care Teams Office Support Associate Relationship Specialty Start Date End Date Melani Franklin DO [address] [facility] [address] [place] [address] PCP - General Internal Medicine 01/02/17 documented as of this encounter
--- OUTSIDE RECORDS SUMMARY | 2024-02-21 16:29 | XMS_ITS | Encounter Summary ---
Author Organization [facility] Address [address] [place] [address] Care Team Providers Care Air Sampler Name Role Phone Melani Franklin DO Primary Care Provider [phone] Encounter Details Date Type Department Care Team (Late st Contact Info) Description 11/15/2022 Telephone [employer] [facility] [address] [facility] [address] Yanelis Lombardo RN Social History Tobacco Use Types Packs/Day Years [...] Telephone Encounter - Yanelis Lombardo RN - 11/15/2022 2:14 PM CDT Spoke with patient over the phone and confirmed appointment. Patient is to come hour early to receive medications and will be bringing a livery car driver. Questions answered documented in this encounter Plan of Treatment Upcoming Encounters Date Type Department Care Team (Late st Contact Info) Description 11/24/2024 9:30 AM CDT Office Visit [facility] Internal Medicine Medical [place] A [address]ARY[address]ANE [address] [facility] [address] [address] Melani Franklin DO [address] [facility] [address] [place] [address] documented as of this encounter Visit Diagnoses Not on filedocumented in this encounter Care Teams Air Sampler Relationship Specialty Start Date End Date Melani Franklin DO [address] [facility] [address] [place], [place] [address] PCP - General Internal Medicine 01/02/17 documented as of this encounter
--- OUTSIDE RECORDS SUMMARY | 2024-02-21 16:29 | XMS_ITS | Encounter Summary ---
Author Organization [facility] Address [address] [place] [address] Care Team Providers Care Matching Machine Operator Name Role Phone Melani Franklin DO Primary Care Provider [phone] Encounter Details Date Type Department Care Team (Late st Contact Info) Description 11/21/2022 9:24 AM CDT - 11/21/2022 11:59 PM CDT Hospital Encounter [facility] Imaging Services [facility] [address] [place] [address] [place] [address] [address] Discharge Disposition: Home or Self [...] Description 11/24/2024 9:30 AM CDT Office Visit [facility] Internal Medicine Medical [place] A MARYJANE [address] [facility] [address] [address] Melani Franklin DO [address] [facility] [address] [place], [place] [id number] documented as of this encounter Procedures Procedure Name Priority Date/Time Associated Diagnosis Comments XR FLUORO NEEDLE GUIDANCE SPINE Routine 11/21/2022 9:59 AM CDT documented in this encounter Results * XR FLUORO NEEDLE GUIDANCE SPINE (11/21/2022 9:59 AM CDT) Narrative [facility] ONCOLOGY SERVICES - [facility] IMAGING SINDELAR - 11/21/2022 9:59 AM CDT Order information only. ??Exam was auto-finalized. ?? Aj Hodges MD DIAGNOSTIC IMAGING O RDERABLES [facility] ONCOLOGY SERVICES - [facility] IMAGING [facility] CLIA#[id number] [place] [address] documented in this encounter Visit Diagnoses Not on filedocumented in this encounter Care Teams Matching Machine Operator Relationship Specialty Start Date End Date Melani Franklin DO [address] [facility] [address] [place], [place] [address] PCP - General Internal Medicine 01/02/17 documented as of this encounter
--- OUTSIDE RECORDS SUMMARY | 2024-02-21 16:29 | XMS_ITS | Encounter Summary ---
Author Organization [facility] Address [address] [place] [address] Care Team Providers Care Circuit Breaker Supervisor Name Role Phone Melani Franklin DO Primary Care Provider [phone] Encounter Details Date Type Department Care Team (Late st Contact Info) Description 05/25/2023 External Device Data STL ABSTRACTION Provider, Abstract [...] Office Visit [facility] Internal Medicine Medical [place] A [facility] [address] [facility] [address] [address] Melani Franklin DO [address] [facility] [address] [place] [address] documented as of this encounter Visit Diagnoses Not on filedocumented in this encounter Care Teams Circuit Breaker Supervisor Relationship Specialty Start Date End Date Melani Franklin DO [address] [facility] [address] [place] [address] PCP - General Internal Medicine 01/02/17 documented as of this encounter
--- OUTSIDE RECORDS SUMMARY | 2024-02-21 16:29 | XMS_ITS | Encounter Summary ---
Author Organization [facility] Address [address] [place] [address] Care Team Providers Care Railroad Wheels And Axle Inspector Name Role Phone Melani Franklin DO Primary Care Provider [phone] Encounter Details Date Type Department Care Team (Late st Contact Info) Description 03/30/2023 External Device Data STL ABSTRACTION Provider, Abstract [...] 11/24/2024 9:30 AM CDT Office Visit [facility] Internal Medicine Medical [place] A [facility] [address] [facility] [address] [address] Melani Franklin DO [address] [facility] [address] [place] [address] documented as of this encounter Visit Diagnoses Not on filedocumented in this encounter Care Teams Railroad Wheels And Axle Inspector Relationship Specialty Start Date End Date Melani Franklin DO [address] [facility] [address] [place] [address] PCP - General Internal Medicine 01/02/17 documented as of this encounter
--- OUTSIDE RECORDS SUMMARY | 2024-02-21 16:29 | XMS_ITS | Encounter Summary ---
Author Organization [facility] Address [address] [place] [address] Care Team Providers Care Cracker Sprayer Name Role Phone Melani Franklin DO Primary Care Provider [phone] Encounter Details Date Type Department Care Team (Late st Contact Info) Description 08/21/2023 External Device Data STL ABSTRACTION Provider, Abstract [...] Description 11/24/2024 9:30 AM CDT Office Visit [facility] Internal Medicine Medical [place] A [facility] [address] [facility] [address] [address] Melani Franklin DO [address] [facility] [address] [place] [address] documented as of this encounter Visit Diagnoses Not on filedocumented in this encounter Care Teams Cracker Sprayer Relationship Specialty Start Date End Date Melani Franklin DO [address] [facility] [address] [place] [address] PCP - General Internal Medicine 01/02/17 documented as of this encounter
--- OUTSIDE RECORDS SUMMARY | 2024-02-21 16:29 | XMS_ITS | Encounter Summary ---
Author Organization [employer] [facility] Address [address] [place] [address] Care Team Providers Care Pot Puller Name Role Phone Melani Franklin DO Primary Care Provider [phone] Reason for Referral * Outpatient Services (Routine) - Closed Specialty Diagnoses / Procedures Referred By Tyrone baxter Referred To Contact Diagnoses Cervical radiculopathy at C6 Procedures RADIOFREQUENCY - THERMAL VT DSTR NROLYTC AGNT PARVERTEB FCT SNGL CRVCL/THORA VT DSTR NROLYTC AGNT PARVERTEB FCT ADDL CRVCL/[place] [address] [address] Referral ID Status Reason Start Date Expiration Date Visits Re quested Visits Authorized [id number] Closed 11/07/2022 01/02/2023 1 1 Reason for Visit * Auth/Cert (Routine) Specialty Diagnoses / Procedures Referred By Tyrone baxter Referred To Contact Pain Management Aj Hod[place] [id number] [place] [phone] [facility] Pain Management Procedures [facility] [id number] [place] [id number] Referral ID Status Reason Start Date Expiration Date Visits Re quested Visits Authorized [id number] 1 1 Encounter Details Date Type Department Care Team (Late st Contact Info) Description 11/07/2022 8:59 AM CDT - 11/07/2022 11:59 PM CDT Hospital Encounter [facility] Imaging Services [facility] [address] [place] [address] [place] [address] [place] [address] [facility] [address] [place] [address] Discharge Disposition: Home or Self [...] Sign Reading Time Taken Comments Blood Pressure 120/78 11/07/2022 10:01 AM CDT Pulse 75 11/07/2022 10:01 AM CDT Temperature - - Respiratory Rate 18 11/07/2022 10:01 AM CDT Oxygen Saturation 98% 11/07/2022 10:01 AM CDT Inhaled Oxygen Concentration - - Weight - - Height - - Body Mass Index - - documented in this encounter Discharge Instructions * Discharge Instructions* Shannen Ellsworth RN - 11/07/2022 9:01 AM CDT [facility] [place] Discharge Instructions Office [employer] is the most effective way to communicate with [facility] and we would like you to use [employer] to communicate about your injection as well. Please go to My [facility] to let us know you would like [...] begins to change color, notify the doctor [phone]. For the first 2 weeks you will [...] for pain (if no contraindication per your battery installer/concrete paver/PCP) Bath, showers, water activities: Do not soak [...] H&P Notes * Aj Hodges MD - 11/07/2022 10:00 AM CDT [facility] PROCEDURE H&P CC: chronic neck pain Jody [...] HX CHOLECYSTECTOMY 2009 HX COCCYGECTOMY LAP CHOLECYSTECTOMY VT COLONOSCOPY FLX DX W/COLLJ SPEC WHEN PFRMD N/A 08/26/2020 COLONOSCOPY performed by Barrington Bueno MD at [facility] Allergies Allergen Reactions Morphine Headache [...] FOR ANXIETY OR INSOMNIA 30 Tablet 0 omeprazole (PriLOSEC) 20 mg [...] Biotin 1 mg Tablet Take by mouth. glucosamine/chondr evans A sod (OSTEO BI-FLEX ORAL) Take by mouth daily. cetirizine (ZyrTEC) 10 mg tablet Take 10 mg by mouth daily. RESVERATROL ORAL Take by mouth daily. montelukast (SINGULAIR) 10 mg tablet Take 1 [...] as needed for Spasm. 30 Tablet 0 SUMAtriptan (IMITREX) 100 mg tablet TAKE 1 TABLET BY MOUTH AT ONSET OF MIGRAINE. MAY REPEAT AFTER 2HOURS IF HEADACHE RETURNS. NOT TO EXCEED 2 TABLETS IN 24 HOURS 27 Tablet 3 COLLAGEN MISC by Misc.(Non-Drug; Combo Route) route daily. Current Facility-Administered Medications Medication Dose Route Frequency Provider Last Rate Last Admin [COMPLETED] oxyCODONE-acetaminophen (PERCOCET) 5-325 mg per tablet 1 Tablet 1 Tablet Oral ONE time only Aj Hodges MD 1 Tablet at 11/07/22915 [COMPLETED] ALPRAZolam (XANAX) tablet 0.5 mg 0.5 mg Oral ONE time only Aj Hodges MD 0.5 mg at11/07/22915 [COMPLETED] dexAMETHasone (PF) (DECADRON) injection 10 mg 10 mg See Admin Instructions intra-proc ONE time Aj Hodges MD 10 mg at 11/07/22945 [COMPLETED] lidocaine PF 1% (XYLOCAINE MPF) injection 10 mL 10 mL Infiltration intra-proc ONE time Aj Hodges MD 10 mL at 11/07/22945 [COMPLETED] lidocaine PF 2% (XYLOCAINE MPF) injection 5 mL 5 mL See Admin Instructions intra-proc ONE time Aj Hodges MD 5 mL at 11/07/22945 lidocaine (XYLOCAINE MPF) 20 mg/mL (2%) cardiac injection 100 mg 5 mL See Admin Instructions intra-proc ONE time Aj Hodges MD ROS negative for all other systems except as in HPI BP 120/78 (BP Location: Right arm) Pulse 75 Resp 18 LMP (LMP Unknown) SpO2 98% General: NAD Lungs: CTAB Heart: [...] procedure note will be dictated separately. 2. Left side RFA next at same levels Aj Hodges MD Anesthesiology and Pain Management documented in this encounter OR Notes * Operative Report - Aj Hodges MD - 11/07/2022 10:00 AM CDT PATIENT NAME: Jody Mason PATIENT DATE OF SURGERY: 11/07/2022 TITLE OF PROCEDURE: Cervical Radiofrequency Denervation of the Medial Branch Nerves under fluoroscopic guidance INDICATION: Jody Mason's pain is facet joint (z-joint) mediated disease that is aggravated by hyperextension, rotation or lateral bending. This was confirmed by provocative testing. Greater than 80% pain relief was obtained by the first diagnostic block of these nerves. LEVELS TREATED: C4-C5 and C5-C6 SIDE: Right PREOPERATIVE DIAGNOSES: Cervical Spondylosis POSTOPERATIVE [...] Description 11/24/2024 9:30 AM CDT Office Visit [facility] Internal Medicine Medical [facility] [address] [facility] [address] [address] Melani Franklin, [address] [facility] [address] [place] [address] Scheduled Orders Name Type Priority Associated Diagnoses Orde r Schedule RADIOFREQUENCY - THERMAL Neurology Routine Cervical radiculopathy at C6 Added to HDF configuration to grandchildren will have ORD item [id number] populate with time. for 1 Occurrences starting 11/07/2022 until 11/07/2022 documented as of this encounter Procedures Procedure Name Priority Date/Time Associated Diagnosis Comments XR FLUORO NEEDLE GUIDANCE SPINE Routine 11/07/2022 9:53 AM CDT documented in this encounter Results * XR FLUORO NEEDLE GUIDANCE SPINE (11/07/2022 9:53 AM CDT) Narrative [facility] ONCOLOGY SERVICES - [facility] IM[facility] S[place] - 11/07/2022 9:53 AM CDT Order information only. ??Exam was auto-finalized. ?? Aj Hodges MD DIAGNOSTIC IMAGING O RDERATR [facility] - [facility]I CLIA#[id number] [place] [address] documented in this encounter Visit Diagnoses Diagnosis Cervical radiculopathy at C6 Brachial neuritis or radiculitis nos documented in this encounter Administered Medications Inactive Administered Medications - up to 3 most recent administrations Medication Order MAR Action Action Date Dose Rate Site ALPRAZolam (XANAX) tablet 0.5 mg 0.5 mg, Oral, ONE TIME ONLY, 1 dose, On Sun11/07/22 at 0915, Routine Given 11/07/2022 9:16 AM CDT 0.5 mg dexAMETHasone (PF) (DECADRON) injection 10 mg 10 mg, See Admin Instructions, INTRA-PROCEDURE ONCE, 1 dose, Starting on Sun11/07/22 at 0918, Until Sun11/07/22 at 0946, Routine, Pre-Procedure Given 11/07/2022 9:46 AM CDT 10 mg Operative Site lidocaine PF 1% (XYLOCAINE MPF) injection 10 mL 10 mL, Infiltration, INTRA-PROCEDURE ONCE, 1 dose, Starting on Sun11/07/22 at 0918, Until Sun11/07/22 at 0946, Routine, Pre-Procedure Given 11/07/2022 9:46 AM CDT 10 mL lidocaine PF 2% (XYLOCAINE MPF) injection 5 mL 5 mL, See Admin Instructions, INTRA-PROCEDURE ONCE, 1 dose, Starting on Sun11/07/22 at 0918, Until Sun11/07/22 at 0946, Routine, Pre-Procedure Given 11/07/2022 9:46 AM CDT 5 mL Operative Site oxyCODONE-acetaminophen (PERCOCET) 5-325 mg per tablet 1 Tablet 1 Tablet, Oral, ONE TIME ONLY, 1 dose, On Sun11/07/22 at 0915, Routine Given 11/07/2022 9:16 AM CDT 1 Tablet documented in this encounter Care Teams Pot Puller Relationship Specialty Start Date End Date Melani Franklin DO [address] [facility] [address] [place] [address] PCP - General Internal Medicine 01/02/17 documented as of this encounter
--- OUTSIDE RECORDS SUMMARY | 2024-02-21 16:29 | XMS_ITS | Encounter Summary ---
Author Organization [facility] Address [address] [place] [address] Care Team Providers Care Tester Regulator Name Role Phone Melani Franklin DO Primary Care Provider [phone] Reason for Visit * Auth/Cert (Routine) Specialty Diagnoses / Procedures Referred By Tyrone t Referred [place] [address] [address] [facility] Pain Management Procedures [facility] [address] [place] [address] Referral ID Status Reason Start Date Expiration Date Visits Re quested Visits Authorized [id number] 1 1 Encounter Details Date Type Department Care Team (Late st Contact Info) Description 10/23/2022 10:19 AM CDT - 10/23/2022 11:59 PM CDT Hospital Encounter [facility] Imaging Services [facility] [address] [place] [address] [place] [address] [address] Discharge Disposition: Home or Self [...] 10/30/2021 10/29/2022 documented as of this encounter Plan of Treatment Upcoming Encounters Date Type Department Care Team (Late st Contact Info) Description 11/24/2024 9:30 AM CDT Office Visit [facility] Internal Medicine Medical [place] A MARYJANE [address] [facility] [address] [address] Melani Franklin DO [address] [facility] [address] [place] [address] documented as of this encounter Procedures Procedure Name Priority Date/Time Associated Diagnosis Comments XR FLUORO NEEDLE GUIDANCE SPINE Routine 10/23/2022 11:22 AM CDT documented in this encounter Results * XR FLUORO NEEDLE GUIDANCE SPINE (10/23/2022 11:22 AM CDT) Narrative [facility] LABORATORY ONCOLOGY SERVICES - [facility] IMAGING SINDELAR - 10/23/2022 11:22 AM CDT Order information only. ??Exam was auto-finalized. ?? Aj Hodges MD DIAGNOSTIC IMAGING O RDERABLES [facility]OR[facility]ORY ONCOLOGY SERVICES - [facility] IMAGING [facility] CLIA#[id number] [address] [place] [address] documented in this encounter Visit Diagnoses Not on filedocumented in this encounter Care Teams Tester Regulator Relationship Specialty Start Date End Date Melani Franklin DO [address] [facility] [address] [place] [address] PCP - General Internal Medicine 01/02/17 documented as of this encounter
--- OUTSIDE RECORDS SUMMARY | 2024-02-21 16:29 | XMS_ITS | Encounter Summary ---
Author Organization [facility] Address [address] [place] [address] Care Team Providers Care Power Press Supervisor Name Role Phone Melani Franklin DO Primary Care Provider [phone] Reason for Visit * Reason Comments Med Refill Encounter Details Date Type Department Care Team (Late st Contact Info) Description 12/07/2022 Refill [facility] Internal Medicine Medical [place] [address] [facility] [address] [place] [address] Melani Franklin DO [address] [address] Mild episode of recurrent major [...] encounter Miscellaneous Notes * Telephone Encounter - Melani Franklin DO - 12/07/2022 9:56 AM CDT duplicate * Telephone Encounter - Pia Michael - 12/07/2022 8:44 AM CDT Recent Visits Date Type Provider Dept 10/17/22 Office Visit Melani Franklin DO [facility] Int Med [place] 189 01/04/22 Office Visit Barbara Graham NP [facility] Int Med [place] 189 10/12/21 Office Visit Melani Franklin DO [facility] Int Med [place] [address] Showing recent visits within past 540 days with a meds authorizing provider and meeting all other requirements Future Appointments No visits were found meeting these conditions. Showing future appointments within next 150 days with a meds authorizing provider and meeting all other requirements Last refill 12/05/22 Quantity 180 Requested Prescriptions Pending Prescriptions Disp Refills buPROPion HCL XL 150 mg 24 hr tablet, extended release (WELLBUTRIN XL) [Pharmacy Med Name: BUPROPION XL 150MG TABLETS (24 H)] 90 Tablet Sig: TAKE 1 TABLET(150 MG) BY MOUTH DAILY IN THE MORNING documented in this encounter Plan of Treatment Upcoming Encounters Date Type Department Care Team (Late st Contact Info) Description 11/24/2024 9:30 AM CDT Office Visit [facility] Internal Medicine Medical [place] [address] [facility] [address] [address] Melani Franklin DO [address] [facility] [address] [place], [place] [address] documented as of this encounter Visit Diagnoses Diagnosis Mild episode of recurrent major depressive disorder NAOMI (generalized anxiety disorder) Generalized anxiety disorder documented in this encounter Care Teams Power Press Supervisor Relationship Specialty Start Date End Date Melani Franklin DO [address] [facility] [address] [place] [address] PCP - General Internal Medicine 01/02/17 documented as of this encounter
--- OUTSIDE RECORDS SUMMARY | 2024-02-21 16:29 | XMS_ITS | Encounter Summary ---
Author Organization [facility] Address [address] [place] [address] Care Team Providers Care Tie Bucker Name Role Phone Melani Franklin DO Primary Care Provider Reason for Visit * Reason Onset Date Comments Appointment Verification 11/03/2022 Encounter Details Date Type Department Care Team (Late st Contact Info) Description 11/03/[address] [facility] [address] [facility] [place] [address] Mary Waterman GN Appointment Verification Social History Tobacco Use Types Packs/Day Years [...] encounter Miscellaneous Notes * Telephone Encounter - Mary Waterman GN - 11/03/2022 12:24 PM CDT Spoke to Kristina. Went over all dets re RFA. documented in this encounter Plan of Treatment Upcoming Encounters Date Type Department Care Team (Late st Contact Info) Description 11/24/2024 9:30 AM CDT Office Visit [facility] Internal Medicine Medical [place] A MARYJANE [address] [facility] [address] [address] Melani Franklin DO [address] [facility] [address] [place] [address] documented as of this encounter Visit Diagnoses Not on filedocumented in this encounter Care Teams Tie Bucker Relationship Specialty Start Date End Date Melani Franklin DO [address] [facility] [address] [place] [address] PCP - General Internal Medicine 01/02/17 documented as of this encounter
--- OUTSIDE RECORDS SUMMARY | 2024-02-21 16:29 | XMS_ITS | Encounter Summary ---
Author Organization [facility] Address [address] [place] [address] Care Team Providers Care Granulator Operator Name Role Phone Melani Franklin DO Primary Care Provider [phone] Encounter Details Date Type Department Care Team (Late st Contact Info) Description 01/01/2023 11:06 AM CDT - 01/01/2023 11:59 PM CDT Hospital Encounter [facility] Services [facility] [address] [place] [address] [place] [address] [facility] [address] [place] [address] Discharge Disposition: Home or Self [...] Visit [facility] Internal Medicine Medical [place] A MARYJANE [address] [facility] [address] [address] Melani Franklin DO [address] [facility] [address] [place] [address] documented as of this encounter Procedures Procedure Name Priority Date/Time Associated Diagnosis Comments XR SHOULDER 2+ VW RIGHT Routine 01/01/2023 11:16 AM CDT Chronic right shoulder pain documented in this encounter Results * XR SHOULDER 2+ VW RIGHT (01/01/2023 11:16 AM CDT) Anatomical Region Laterality Modality Upper Extremity Computed Radiogr aphy 01/01/2023 11:1 6 AM CDT Impressions 01/01/2023 11:42 AM CDT Impression: Normal ?? DICTATION LOCATION: Location [address] [place] [address] Narrative 01/01/2023 11:42 AM CDT Right Shoulder [...] erosion or osteopenia. Impression: Normal DICTATION LOCATION: [address] Aj Hodges MD DIAGNOSTIC IMAGING O RDERABLES documented in this encounter Visit Diagnoses Diagnosis Chronic right shoulder pain Pain in joint, shoulder region documented in this encounter Care Teams Granulator Operator Relationship Specialty Start Date End Date Melani Franklin DO [address] [facility] [address] [place] [address] PCP - General Internal Medicine 01/02/17 documented as of this encounter
--- OUTSIDE RECORDS SUMMARY | 2024-02-21 16:29 | XMS_ITS | Encounter Summary ---
Author Organization [facility] Address [address] [place] [address] Care Team Providers Care Entrance Guard Name Role Phone Melani Franklin DO Primary Care Provider [phone] Encounter Details Date Type Department Care Team (Late st Contact Info) Description 02/14/2023 External Device Data STL ABSTRACTION Provider, Abstract [...] [facility] Internal Medicine Medical [place] A [facility] [address] [facility] [address] [address] Melani Franklin DO [address] [facility] [address] [place] [address] documented as of this encounter Visit Diagnoses Not on filedocumented in this encounter Care Teams Entrance Guard Relationship Specialty Start Date End Date Melani Franklin DO [address] [facility] [address] [place] [address] PCP - General Internal Medicine 01/02/17 documented as of this encounter
--- OUTSIDE RECORDS SUMMARY | 2024-02-21 16:29 | XMS_ITS | Encounter Summary ---
Author Organization [facility] Address [address] [place] [address] Care Team Providers Care Photo Studio Assistant Name Role Phone Melani Franklin DO Primary Care Provider [phone] Encounter Details Date Type Department Care Team (Late st Contact Info) Description 06/05/2023 External Device Data STL ABSTRACTION Provider, Abstract [...] Visit [facility] Internal Medicine Medical [place] [facility] [address] [address] Melani Franklin DO [address] [facility] [address] [facility] [address] [place] [address] documented as of this encounter Visit Diagnoses Not on filedocumented in this encounter Care Teams Photo Studio Assistant Relationship Specialty Start Date End Date Melani Fraknlin DO [address] [facility] [facility] [address] [place] [address] PCP - General Internal Medicine 01/02/17 documented as of this encounter
--- OUTSIDE RECORDS SUMMARY | 2024-02-21 16:30 | XMS_ITS | Encounter Summary ---
Author Organization [facility] Address [address] [place] [address] Care Team Providers Care Intelligent Systems Engineer Name Role Phone Melani Franklin DO Primary Care Provider Reason for Visit * Reason Comments Physical Encounter Details Date Type Department Care Team (Late st Contact Info) Description 10/17/2022 10:30 AM CDT Office Visit 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; Benign hypertension; Mild intermittent extrinsic asthma without complication; Insomnia, unspecified type; Migraine with aura and without status migrainosus, not intractable; Hormone replacement therapy (postmenopausal) Social History Tobacco Use Types Packs/Day Years [...] Sign Reading Time Taken Comments Blood Pressure 116/82 10/17/2022 10:22 AM CDT Pulse 82 10/17/2022 10:22 AM CDT Temperature 37.2 ??C (98.9 ??F) 10/17/2022 10:22 AM C DT Respiratory Rate - - Oxygen Saturation 97% 10/17/2022 10:22 AM CDT Inhaled Oxygen Concentration - - Weight 64.7 kg (142 lb 9.6 oz) 10/17/2022 10:22 AM CDT Height 157.5 cm (5' 2 ) 10/17/2022 10:22 AM CDT Body Mass Index 26.08 10/17/2022 10:22 AM CDT documented in this encounter Progress Notes * Melani Franklin, DO - 10/17/2022 10:49 AM CDT HISTORY OF PRESENT ILLNESS Jody Mason, a 52 y.o. female presents with a Chief Complaint of Physical Subjective Physical Pertinent negatives include no chest pain, no abdominal pain, no headaches and no shortness of breath. Jody is here for his routine physical. The medications, allergies, past medical history, family history, and social history are all reviewed and updated at this visit She recently went to [facility] to visit her mom. Uses albuterol intermittently for asthma. Notes when she used singulair BID she did much better. Still is dependent on zolpidem and xanax to sleep. Wellbutrin working well for her mood and with appetite, she's considering increasing her dose. Getting neck injections by PM. Takes flexeril intermittently. HTN- not checked at home. Migraines- much better, naproxen +imitrex. Went to a hormone specialist, now on E, P, and T pellet. Doing much better on this. Wt Readings from Last 3 Encounters: 10/17/22 64.7 kg (142 lb 9.6 oz) 09/06/22 63.2 kg (139 lb 6.4 oz) 05/10/22 62.7 kg (138 lb 3.2 oz) Patient Active Problem List Diagnosis Date Noted [...] TABLET(150 MG) BY MOUTHDAILY IN THE MORNING cetirizine (ZYRTEC) 10 mg, Oral, DAILY CLOBETASOL PROPIONATE, BULK, MISC COLLAGEN MISC Misc.(Non-Drug; Combo Route), DAILY cyclobenzaprine (FLEXERIL) 10 mg, Oral, THREE TIMES DAILY PRN diazePAM (VALIUM) 5 mg tablet TAKE DIRECTED UPON ARRIVAL FOR PROCEDURE AND THEN EVERY 6 HOURS ASNEEDED POST-OP escitalopram oxalate (LEXAPRO) 20 mg tablet TAKE 1 TABLET(20 MG) BY MOUTH DAILY ESTRADIOL ORAL Oral glucosamine/chondr evans A sod (OSTEO BI-FLEX ORAL) Oral, DAILY lisinopril-hydroCHLOROthiazide (ZESTORETIC) 10-12.5 mg tablet 1 Tablet, Oral, DAILY montelukast (SINGULAIR) 10 mg tablet TAKE 1 TABLET(10 MG) BY MOUTH DAILY AT BEDTIME naproxen (NAPROSYN) 500 mg, Oral, TWO TIMES DAILY omeprazole (PriLOSEC) 20 mg Capsule, Delayed Release(E.C.) TAKE ONE CAPSULE BY MOUTH DAILY progesterone micronized (PROMETRIUM) 100 mg Capsule TAKE 1 CAPSULE BY MOUTH IN THE EVENING RESVERATROL ORAL Oral, DAILY SUMAtriptan (IMITREX) 100 mg tablet TAKE 1 TABLET BY MOUTH AT ONSET OF MIGRAINE. MAY REPEAT AFTER 2HOURS IF HEADACHE RETURNS. NOT TO EXCEED 2 TABLETS IN 24 HOURS testosterone 100 mg Pellet Implant turmeric root extract 500 mg Capsule 1 Capsule, Oral valACYclovir (VALTREX) 2,000 mg, Oral, TWO TIMES DAILY zolpidem (AMBIEN) 5 mg tablet TAKE 1 TO 2 TABLETS(5 TO 10 MG) BY MOUTH EVERY NIGHT NEEDED FOR INSOMNIA REVIEW OF SYSTEMS Review of Systems Constitutional: Negative for chills, fatigue and fever. HENT: Positive for hearing loss. Negative for congestion, sinus pressure and sore throat. Eyes: Negative [...] is not nervous/anxious. Objective PHYSICAL EXAM BP 116/82 (BP Location: Right arm, Patient Position (BP): Sitting, BP Cuff Size: Adult) Pulse 82 Temp 98.9 ??F (37.2 ??C) (Temporal) Ht 5' 2 (1.575 m) Wt 64.7 kg (142 lb 9.6 oz) LMP (LMP Unknown) SpO2 97% BMI 26.08 kg/m?? Physical Exam Constitutional: General: She is not in acute distress. Appearance: She is well-developed. She is not diaphoretic. HENT: Head: Normocephalic and atraumatic. Right Ear: Tympanic membrane normal. Decreased hearing noted. Left Ear: Tympanic membrane normal. Decreased hearing (wears hearing aides) noted. Eyes: General: No scleral icterus. Pupils: Pupils [...] 1. Routine general medical examination at a health care facility Z00.00 V70.0 2. Mild episode of recurrent major depressive disorder F33.0 296.31 3. 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 Benign hypertension I10 401.1 5. Mild intermittent extrinsic asthma without complication J45.20 493.00 montelukast (SINGULAIR) 10mg tablet 6. Insomnia, unspecified type G47.00 780.52 7. Migraine with aura and without status migrainosus, not intractable G43.109 346.00 8. Hormone replacement therapy (postmenopausal) Z79.890 V07.4 CBC WITH DIFFERENTIAL LIPID PANEL COMPREHENSIVE METABOLIC PANEL HEMOGLOBIN A1C TSH REFLEXIVE Health maintenance issues were discussed with Jody Mason. This included colonoscopy, bone density, calcium replacement, exercise, diet, mammograms, pap smears (neg by Dr. Lainez 2022), self breast exams, immunizations and screening labs. We discussed her dependence on Xanax and Ambien for sleep, she has tried to discontinue use and hasbeen unable to. Change singulair to BID to better control her asthma. Depression is fairly well controlled, try to increase Buproprion to 300mg to help with continued appetite suppression and decrease Lexapro if possible. Try to wean off Prilosec to H2 deshawn if possible. Hypertension is well controlled on current medications. Migraines are well controlled on current medications. No contraindication to continuing hormone replacement therapy at this time. documented in this encounter Plan of Treatment Upcoming Encounters Date Type Department Care Team (Late st Contact Info) Description 11/24/2024 9:30 AM CDT Office Visit [facility] Internal Medicine Medical [place] [facility] [address] [address] Melani Franklin DO [address] [facility] [address] [place] [address] documented as of this encounter Procedures Procedure Name Priority Date/Time Associated Diagnosis Comments TSH REFLEXIVE Routine 11/10/2022 8:55 AM CDT Hormone replacement therapy (postmenopausal) CBC WITH DIFFERENTIAL Routine 11/10/2022 8:55 AM CDT Hormone replacement therapy (postmenopausal) HEMOGLOBIN A1C Routine 11/10/2022 8:55 AM CDT Hormone replacement therapy (postmenopausal) LIPID PANEL Routine 11/10/2022 8:55 AM CDT Hormone replacement therapy (postmenopausal) COMPREHENSIVE METABOLIC PANEL Routine 11/10/2022 8:55 AM CDT Hormone replacement therapy (postmenopausal) documented in this encounter Results * TSH REFLEXIVE (11/10/2022 8:55 AM CDT) TSH 2.38 mIU/L [facility] Comment: ?Reference Range ?> or = 20 Years ??0.40-4.50 ? Ranges ?First trimester ?0.26-2.66 ?Second trimester ?? 0.55-2.73 ?Third trimester ?0.43-2.91 Test Performed at: [facility] ??[phone] Carlos Leiva MD Blood 11/10/2022 8:55 AM CDT 11/10/2022 8:55 AM CDT Melani Franklin DO CHEMISTRY ORDERABLES [facility] [phone] [facility] [address] [place] [address] * HEMOGLOBIN A1C (11/10/2022 8:55 AM CDT) Pathologist [facility] HEMOGLOBIN A1C 4.8 <5.7 % of total Hgb [facility] Comment: For the purpose of screening for the presence of diabetes: <5.7% ? Consistent with the absence of diabetes 5.7-6.4% ?Consistent with increased risk for diabetes ?(prediabetes) > or =6.5% ??Consistent with diabetes This assay result is consistent with a decreased risk of diabetes. Currently, no consensus exists regarding use of hemoglobin A1c for diagnosis of diabetes in children. According to [place] Diabetes Association (ADA) guidelines, hemoglobin A1c <7.0% represents optimal control in non- diabetic patients. Different metrics may apply to specific patient populations. Standards of Medical Care in Diabetes(ADA). ?? ESTIMATED AVERAGE GLUCOSE (MG/DL) 91 mg/dL [facility] ESTIMATED AVERAGE GLUCOSE (MMOL/L) 5.0 mmol/L [facility] Comment: Test Performed at: [facility] [address] [place], [place] ??[address] NinoskaLeona Dick Vo Blood 11/10/2022 8:55 AM CDT 11/10/2022 8:55 AM CDT Melani Franklin DO CHEMISTRY ORDERABLES [facility] [phone] [facility] [address] [place] [address] * COMPREHENSIVE METABOLIC PANEL (11/10/2022 8:55 AM CDT) Pathologist [facility] [place] GLUCOSE 96 65 - 99 mg/dL [facility] Comment: ? Fasting reference interval BUN 15 7 - 25 mg/dL [facility] CREATININE 0.62 0.50 - 1.03 mg/dL [facility] GFR 106 > OR = 60 mL/min/1. 73m2 [facility] BUN/CREAT RATIO SEE NOTE: (calc) [facility] Comment: ?? Not Reported: BUN and Creatinine are within ?? reference range. ? SODIUM 136 135 - 146 mmol/L [facility] POTASSIUM 4.3 3.5 - 5.3 mmol/L [facility] CHLORIDE 100 98 - 110 mmol/L [facility] CO2 29 20 - 32 mmol/L [facility] CALCIUM 9.5 8.6 - 10.4 mg/dL [facility] TOTAL PROTEIN 6.9 6.1 - 8.1 g/dL [facility] ALBUMIN 4.6 3.6 - 5.1 g/dL [facility] GLOBULIN 2.3 1.9 - 3.7 g/dL (calc) [facility] ALBUMIN/GLOBULIN RATIO 2.0 1.0 - 2.5 (calc) [facility] BILIRUBIN TOTAL 0.6 0.2 - 1.2 mg/dL [facility] ALKALINE PHOSPHATASE 103 37 - 153 U/L [facility] AST 21 10 - 35 U/L [facility] ALT 19 6 - 29 U/L [facility] Comment: Test Performed at: [place] [address] [place], [place] ??[address] [facility] Leiva Blood 11/10/2022 8:55 AM CDT 11/10/2022 8:55 AM CDT Melani Franklin DO CHEMISTRY ORDERABLES [facility] [phone] [place] [address] [place] [address] * (ABNORMAL) LIPID PANEL (11/10/2022 8:55 AM CDT) CHOLESTEROL 362(H) <200 mg/dL [facility] HDL 40(L) > OR = 50 mg/dL [facility] TRIGLYCERIDE 762(H) <150 mg/dL [facility] Comment: If a non-fasting specimen was collected, consider repeat triglyceride testing on a fasting specimen if clinically indicated. Esmer et al. J. of Clin. Lipidol. 2015;9:129-169. There is increased risk of pancreatitis when the triglyceride concentration is very high (> or = 500 mg/dL, especially if > or = 1000 mg/dL). Esmer et al. J. of Clin. Lipidol. 2015;9:129-169. LDL CALCULATED mg/dL (calc) [facility] Comment: LDL cholesterol not calculated. Triglyceride levels greater than 400 mg/dL invalidate calculated LDL results. Reference range: <100 Desirable range <100 mg/dL for primary prevention; ?? <70 mg/dL for patients with CHD or diabetic patients with > or = 2 CHD risk factors. LDL-C is now calculated using the Herman calculation, which is a validated novel method providing better accuracy than the Friedewald equation in the estimation of LDL-C. Anurag BOLIVAR et al. DAVIS. 2013;310(19): 9515-2515 (http://education.Zazengo/faq/OYA611) CHOL/HDL RATIO 9.1(H) <5.0 (calc) [facility] TOTAL NON-HDL CHOL(LDL+VLDL) 322(H) <130 mg/dL (calc) [facility] Comment: Non-HDL level > or = 220 [...] considered a therapeutic option. Test Performed at: [facility] [address] [place] ??[phone] [facility] Blood 11/10/2022 8:55 AM CDT 11/10/2022 8:55 AM CDT Melani Franklin DO CHEMISTRY ORDERABLES [facility] [phone] [place] [address] [place] [address] * (ABNORMAL) CBC WITH DIFFERENTIAL (11/10/2022 8:55 AM CDT) WBC 5.6 3.8 - 10.8 Thousand/ uL [facility] RBC 4.46 3.80 - 5.10 Million/u L [facility] HEMOGLOBIN 15.0 11.7 - 15.5 g/dL [facility] HEMATOCRIT 44.4 35.0 - 45.0 % [facility] MCV 99.6 80.0 - 100.0 fL [facility] MCH 33.6(H) 27.0 - 33.0 pg [facility] MCHC 33.8 32.0 - 36.0 g/dL [facility] RDW 11.8 11.0 - 15.0 % [facility] PLATELETS 228 140 - 400 Thousand/ uL [facility] MPV 11.9 7.5 - 12.5 fL [facility] NEUTROPHIL ABSOLUTE 3,114 1,500 - 7,800 cells/uL [facility] LYMPHOCYTE ABSOLUTE 1,921 850 - 3,900 cells/uL [facility] MONOCYTE ABSOLUTE 448 200 - 950 cells/uL [facility] EOSINOPHIL ABSOLUTE 90 15 - 500 cells/uL [facility] BASOPHILS ABSOLUTE 28 0 - 200 cells/uL [facility] NEUTROPHIL 55.6 % [facility] LYMPHOCYTES 34.3 % [facility] MONOCYTE 8.0 % [facility] EOSINOPHILS 1.6 % [facility] BASOPHILS 0.5 % [facility] Comment: Test Performed at: [facility] [place] [address] [place] ??[phone] Carlos Leiva Blood 11/10/2022 8:55 AM CDT 11/10/2022 8:55 AM CDT Melani Franklin DO HEMATOLOGY ORDERABLE S [facility] [phone] [facility] [address] [place] [phone] documented in this encounter Visit Diagnoses Diagnosis Routine general medical examination at a health care facility- Primary 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, 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 Benign hypertension Essential hypertension, benign Mild intermittent extrinsic asthma without complication Insomnia, unspecified type Migraine with aura and without status migrainosus, not intractable Migraine with aura, without mention of intractable migraine without mention of status migrainosus Hormone replacement therapy (postmenopausal) Need for prophylactic hormone replacement therapy (postmenopausal) documented in this encounter Care Teams Intelligent Systems Engineer Relationship Specialty Start Date End Date Melani Franklin DO [address] [place] [address] PCP - General Internal Medicine 01/02/17 documented as of this encounter
--- OUTSIDE RECORDS SUMMARY | 2024-02-21 16:30 | XMS_ITS | Encounter Summary ---
Author Organization [facility] Address [address] [place] [address] Care Team Providers Care Health Care Recruiter Name Role Phone Melani Franklin Primary Care Provider [phone] Reason for Referral * Outpatient Services (Routine) - Closed Specialty Diagnoses / Procedures Referred By Tyrone baxter Referred To Contact Diagnoses Cervical radiculopathy at C6 Procedures RADIOFREQUENCY - THERMAL AL DSTR NROLYTC AGNT PARVERTEB FCT SNGL CRVCL/THORA AL DSTR NROLYTC AGNT PARVERTEB FCT ADDL CRVCL/[place] [id number] [address] Referral ID Status Reason Start Date Expiration Date Visits Re quested Visits Authorized [id number] Closed 11/21/2022 01/02/2023 1 1 * Outpatient Services (Routine) - Closed Specialty Diagnoses / Procedures Referred By Tyrone t Referred To Contact Diagnoses Cervical radiculopathy at C6 Procedures RADIOFREQUENCY - THERMAL AL DSTR NROLYTC AGNT PARVERTEB FCT SNGL CRVCL/THORA AL DSTR NROLYTC AGNT PARVERTEB FCT ADDL CRVCL/[place] [address] [address] Referral ID Status Reason Start Date Expiration Date Visits Re quested Visits Authorized [id number] Closed 11/07/2022 01/02/2023 1 1 * Outpatient Services (Routine) - Closed Specialty Diagnoses / Procedures Referred By Contac t Referred To Contact Diagnoses Cervical radiculopathy at C6 Procedures PAIN PROCEDURE AL NJX DX/THER AGT PVRT FACET JT CRV/THRC 1 LEVEL AL NJX DX/THER AGT PVRT FACET JT CRV/[place] [address] [address] Referral ID Status Reason Start Date Expiration Date Visits Re quested Visits Authorized [id number] Closed 10/23/2022 01/02/2023 1 1 * Outpatient Services (Routine) - Closed Specialty Diagnoses / Procedures Referred By Contac t Referred To Contact Diagnoses Cervical radiculopathy at C6 Procedures PAIN PROCEDURE AL NJX DX/THER AGT PVRT FACET JT CRV/THRC 1 LEVEL AL NJX DX/THER AGT PVRT FACET JT CRV/[place] 2[place] [address] [address] Referral ID Status Reason Start Date Expiration Date Visits Re quested Visits Authorized [id number] Closed 10/09/2022 01/02/2023 1 1 Encounter Details Date Type Department Care Team (Late st Contact Info) Description 09/06/2022 Prep for Surgery [facility] [address] [place] [address] Reji Blankenship Cervical radiculopathy at C6 (Primary Dx) Social History Tobacco Use Types [...] 11/24/2024 9:30 AM CDT Office Visit [facility] Internal Medicine Medical [place] Mike MARYJANE [address] [address] Melani Franklin DO [address] [place] [address] Scheduled Orders Name Type Priority Associated Diagnoses Orde r Schedule PAIN PROCEDURE Neurology Routine Cervical radiculopathy at C6 1 Occurrences starting 09/06/2022 until 09/07/2023 PAIN PROCEDURE Neurology Routine Cervical radiculopathy at C6 1 Occurrences starting 09/06/2022 until 09/07/2023 RADIOFREQUENCY - THERMAL Neurology Routine Cervical radiculopathy at C6 1 Occurrences starting 09/06/2022 until 09/07/2023 RADIOFREQUENCY - THERMAL Neurology Routine Cervical radiculopathy at C6 1 Occurrences starting 09/06/2022 until 09/07/2023 documented as of this encounter Visit Diagnoses Diagnosis Cervical radiculopathy at C6- Primary Brachial neuritis or radiculitis nos documented in this encounter Care Teams Health Care Recruiter Relationship Specialty Start Date End Date Melani Franklin DO [address] [place] [address] PCP - General Internal Medicine 01/02/17 documented as of this encounter
--- OUTSIDE RECORDS SUMMARY | 2024-02-21 16:30 | XMS_ITS | Encounter Summary ---
Author Organization [facility] Address [address] [place] [address] Care Team Providers Care Director Oracle Database Name Role Phone Melani Franklin DO Primary Care Provider [phone] Reason for Visit * Reason Comments Med Refill Encounter Details Date Type Department Care Team (Late st Contact Info) Description 08/22/2022 Refill [facility] Internal Medicine Medical [place] [facility] [address] [address] Melani Franklin DO [address] [facility] [address] [place] [address] Insomnia, unspecified type Social History [...] encounter Miscellaneous Notes * Telephone Encounter - Misty Treadwell - 08/22/2022 5:17 PM CDT Recent Visits Date Type Provider Dept 01/04/22 Office Visit Barbara Graham NP [facility] Int Med [place] [facility] 10/12/21 Office Visit Melani Franklin DO [facility] Int Med [place] [address] 06/08/21 Office Visit Michelle Temple NP [facility] Int Med [place] [address] Showing recent visits within past 540 days with a meds authorizing provider and meeting all other requirements Future Appointments Date Type Provider Dept 10/17/22 Appointment Melani Franklin DO [facility] Int Med [place] [address] Showing future appointments within next 150 days with a meds authorizing provider and meeting all other requirements Last refill 06/12/2022 Quantity 30 Requested Prescriptions Pending Prescriptions Disp [...] Description 11/24/2024 9:30 AM CDT Office Visit [facility] Internal Medicine Medical [place] [address] [address] Melani Franklin DO [address] [facility] [address] [place] [address] documented as of this encounter Visit Diagnoses Diagnosis Insomnia, unspecified type documented in this encounter Care Teams Director Oracle Database Relationship Specialty Start Date End Date Melani Franklin DO [address] [facility] [address] [place], [place] [address] PCP - General Internal Medicine 01/02/17 documented as of this encounter
--- OUTSIDE RECORDS SUMMARY | 2024-02-21 16:30 | XMS_ITS | Encounter Summary ---
Author Organization [facility] Address [address] [place] [address] Care Team Providers Care Filtering Machine Tender Name Role Phone Melani Franklin DO Primary Care Provider [phone] Reason for Visit * Reason Onset Date Comments Medication Refill 09/12/2022 Encounter Details Date Type Department Care Team (Late st Contact Info) Description 09/12/2022 Refill [facility] Internal Medicine Medical [facility] [address] [address] Melani Franklin DO [address] [facility] [address] [facility] [address] [place] [address] Social History Tobacco Use Types Packs/Day [...] Telephone Encounter - Melani Franklin DO - 09/13/2022 7:06 AM CDT On mobic, can't take naproxen * Telephone Encounter - Misty Treadwell - 09/12/2022 9:23 AM CDT LR 06/16/2020 QTY 180 Recent Visits Date Type Provider Dept 01/04/22 Office Visit [facility] [place] [address] 10/12/21 Office Visit Melani Franklin DO [facility] [place] [facility] [address] 06/08/21 Office Visit Michelle Temple, [facility] [place] [address] Showing recent visits within past 540 days with a meds authorizing provider and meeting all other requirements Future Appointments Date Type Provider Dept 10/17/22 Appointment Melani Franklin DO [facility] [place] [address] Showing future appointments within next 150 days with a meds authorizing provider and meeting all other requirements documented in this encounter Plan of Treatment Upcoming Encounters Date Type Department Care Team (Late st Contact Info) Description 11/24/2024 9:30 AM CDT Office Visit [facility] Internal Medicine Medical [place] [address] [address] Melani Franklin DO [address] [place], [place] [id number] documented as of this encounter Visit Diagnoses Not on filedocumented in this encounter Care Teams Filtering Machine Tender Relationship Specialty Start Date End Date Melani Franklin DO [address] [place] [address] PCP - General Internal Medicine 01/02/17 documented as of this encounter
--- OUTSIDE RECORDS SUMMARY | 2024-02-21 16:30 | XMS_ITS | Encounter Summary ---
Author Organization [facility] Address [address] [place] [address] Care Team Providers Care Iron Assorter Name Role Phone Melani Franklin DO Primary Care Provider [phone] Reason for Visit * Auth/Cert (Routine) Specialty Diagnoses / Procedures Referred By Tyrone t [place]erred [place] [address] [address] [facility] Pain Management Procedures [facility] [address] [place] [address] Referral ID Status Reason Start Date Expiration Date Visits Re quested Visits Authorized [id number] 1 1 Encounter Details Date Type Department Care Team (Late st Contact Info) Description 10/09/2022 8:08 AM CDT - 10/09/2022 11:59 PM CDT Hospital Encounter [facility] Imaging Services [facility] [address] [place] [address] [place] [address] [address] Discharge Disposition: Home or Self [...] CAPSULE BY MOUTH IN THE EVENING 09/13/2022 valACYclovir (VALTREX) 1 gram tabletIndications:Cold sore Take [...] FOR INSOMNIA 30 Tablet 1 08/07/2022 02/14/2023 valACYclovir (VALTREX) 1 gram tabletIndications:Cold sore Take 2 Tablets by mouth 2 times daily. 4 Tablet 3 08/02/2022 10/17/2022 cyclobenzaprine (FLEXERIL) 10 mg tabletIndications:Neck pain, bilateral Take 1 Tablet (10 mg) by mouth 3 times daily as needed for Spasm. 30 Tablet 05/03/2022 01/04/2023 escitalopram oxalate (LEXAPRO) 20 mg tabletIndications:Mild episode of recurrent major depressive disorder TAKE 1 TABLET(20 MG) BY MOUTH DAILY 90 Tablet 3 02/28/2022 06/05/2023 lisinopril-hydroCHLOROt hiazide (ZESTORETIC) 10-12.5 mg tablet TAKE 1 TABLET BY MOUTH DAILY 90 Tablet 3 01/09/2022 10/15/2022 montelukast (SINGULAIR) 10 mg tablet TAKE 1 TABLET(10 MG) BY MOUTH DAILY AT BEDTIME 90 Tablet 3 10/30/2021 10/29/2022 documented as of this encounter Plan of Treatment Upcoming Encounters Date Type Department Care Team (Late st Contact Info) Description 11/24/2024 9:30 AM CDT Office Visit [facility] Internal Medicine Medical [place] [address] [address] Melani Franklin DO [address] [place] [address] documented as of this encounter Procedures Procedure Name Priority Date/Time Associated Diagnosis Comments XR FLUORO NEEDLE GUIDANCE SPINE Routine 10/09/2022 8:19 AM CDT documented in this encounter Results * XR FLUORO NEEDLE GUIDANCE SPINE (10/09/2022 8:19 AM CDT) Narrative [facility] - [facility] - 10/09/2022 8:19 AM CDT Order information only. ??Exam was auto-finalized. ?? Aj Hodges MD DIAGNOSTIC IMAGING O RDERABLES [facility] - [facility] CLIA#[id number] [place], [place] [id number] documented in this encounter Visit Diagnoses Not on filedocumented in this encounter Care Teams Iron Assorter Relationship Specialty Start Date End Date Melani Franklin DO [address] [place] [address] PCP - General Internal Medicine 01/02/17 documented as of this encounter
--- OUTSIDE RECORDS SUMMARY | 2024-02-21 16:30 | XMS_ITS | Encounter Summary ---
Author Organization [facility] Address [address] [place] [address] Care Team Providers Care Concrete Sculptor Name Role Phone Melani Franklin DO Primary Care Provider [phone] Reason for Visit * Reason Comments Med Refill Encounter Details Date Type Department Care Team (Late st Contact Info) Description 08/05/2022 Refill [facility] Internal Medicine Medical [facility] [address] [place] [address] Melani Franklin, [address] [address] Insomnia, unspecified type Social History [...] encounter Miscellaneous Notes * Telephone Encounter - Jennifer Salinas RN - 08/06/2022 6:12 AM CDT Last office visit: 10/12/21 Next office visit: 10/17/22 Last refill: 11/23/21 Quantity: 30/ Requested Prescriptions Pending Prescriptions Disp Refills zolpidem 5 mg tablet (AMBIEN) [Pharmacy Med Name: ZOLPIDEM 5MG TABLETS] 30 Tablet 1 Sig: TAKE 1 TO 2 TABLETS(5 TO 10 MG) BY MOUTH EVERY NIGHT NEEDED FOR INSOMNIA documented in this encounter Plan of Treatment Upcoming Encounters Date Type Department Care Team (Late st Contact Info) Description 11/24/2024 9:30 AM CDT Office Visit [facility] Internal Medicine Medical [facility] [address] [address] Melani Franklin DO [address] [facility] [facility] [address] [place] [address] documented as of this encounter Visit Diagnoses Diagnosis Insomnia, unspecified type documented in this encounter Care Teams Concrete Sculptor Relationship Specialty Start Date End Date Melani Franklin DO [address] [facility] [facility] [address] [place], [place] [id number] PCP - General Internal Medicine 01/02/17 documented as of this encounter
--- OUTSIDE RECORDS SUMMARY | 2024-02-21 16:30 | XMS_ITS | Encounter Summary ---
Author Organization [facility] Address [address] [place] [address] Care Team Providers Care Foxing Painter Name Role Phone Melani Franklin DO Primary Care Provider [phone] Reason for Visit * Reason Comments Follow Up Reports intense stif fness and stabbing pain when tilting head. Pain radiates to the left shoulder with associated numbness in left ring finger as well as the right ring finger06/08/22- [place] DANILO at C7-T1, provided approximately 40% pain relief Encounter Details Date Type Department Care Team (Late st Contact Info) Description 09/06/2022 11:00 AM CDT Office Visit [facility] [address] [address] [place] [id number] [facility] [address] [facility] [address] [place] [address] Cervical radiculopathy at C6 (Primary Dx) Social [...] Sign Reading Time Taken Comments Blood Pressure 118/75 09/06/2022 10:39 AM CDT Pulse 75 09/06/2022 10:39 AM CDT Temperature - - Respiratory Rate - - Oxygen Saturation 98% 09/06/2022 10:39 AM CDT Inhaled Oxygen Concentration - - Weight 63.2 kg (139 lb 6.4 oz) 09/06/2022 10:39 AM CDT Height 157.5 cm (5' 2 ) 09/06/2022 10:39 AM CDT Body Mass Index 25.5 09/06/2022 10:39 AM CDT documented in this encounter Progress Notes * Michael Roberto MD - 09/06/2022 11:20 AM CDT I had the pleasure of seeing Jody today at my Neurosurgery Office at [facility]. Jody is a 52 y.o. female who comes to my office today with complaints of continued neck pain and upper extremity numbness. She has now had her epidural steroid injections which has helped but the pain continues at a6 out of 10 level. Her pain is now again mostly neck may be 90% plus or greater. Her pain in her arms is described mostly as numbness. She has not tried physical therapy as well as care program resident.She is also on turmeric. She had an EMG nerve conduction test that showed right carpal tunnel as well as radiculitis in the C6 distribution. She is following up today with us.. 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 [place] Tobacco Use Smoking status: Former Packs/day: 1.00 Years: 10.00 Pack years: 10.00 Types: Cigarettes Quit date: 03/05/2007 Years since quittin.5 Smokeless tobacco: Never Vaping Use Vaping Use: Never used Substance and Sexual Activity Alcohol use: Yes Alcohol/week: 7.0 standard drinks Types: 7 Standard drinks or equivalent per week Drug use: No Sexual activity: Yes Partners: Male control/protection: Pill Comment: Stopped BC 10/26/20 Other Topics Concern Not on file Social History Narrative Not on file Social Determinants of Health Financial Resource Strain: Not on file Food Insecurity: Not on file Transportation Needs: Not on file Social Connections: Not on file Intimate Partner Violence: Not on file Housing Stability: Not on file Family History Problem Relation Name Age of Onset Stroke Father Tucker Glynn Asthma Father Tucker [place]nn Cancer Father Tucker Glynn Prostate Heart Disease Father Tucker Glynn Hypertension Father Tucker Glynn High Cholesterol Father Tucker Glynn Healthy Mother Colon Cancer Neg Hx Current Outpatient Medications on File Prior to Visit Medication Sig Dispense Refill ALPRAZolam (XANAX) 0.25 [...] mouth 2 times daily. 4 Tablet 3 valACYclovir (VALTREX) 1 gram tablet Take 2 Tablets by mouth 2 times daily. 4 Tablet 3 cyclobenzaprine (FLEXERIL) 10 mg tablet Take 1 Tablet (10 mg) by mouth 3 times daily as needed for Spasm. 30 Tablet 0 omeprazole (PriLOSEC) 20 mg Capsule, Delayed Release(E.C.) TAKE ONE CAPSULE BY MOUTH DAILY 90 Capsule 3 buPROPion HCL (WELLBUTRIN XL) 150 mg Extended Release 24 hour tablet TAKE 1 TABLET(150 MG) BY MOUTHDAILY IN THE MORNING 90 Tablet 1 escitalopram oxalate (LEXAPRO) 20 mg tablet TAKE 1 TABLET(20 MG) BY MOUTH DAILY 90 Tablet 3 lisinopril-hydroCHLOROthiazide (ZESTORETIC) 10-12.5 mg tablet TAKE 1 TABLET BY MOUTH DAILY 90 Tablet 3 chlorhexidine gluconate 0.12 % Mouthwash RINSE MOUTH WITH ONE OUNCE TWICE DAILY. ONCE AFTER EATING IN THE MORNING THEN AGAIN AFTER BRUSHING BEFORE BEDTIME diazePAM (VALIUM) 5 mg tablet TAKE DIRECTED UPON ARRIVAL FOR PROCEDURE AND THEN EVERY 6 HOURS ASNEEDED POST-OP turmeric root extract 500 mg Capsule Take 1 Capsule by mouth. meloxicam (Mobic) 15 mg tablet Take 1 Tablet (15 mg) by mouth daily. 14 Tablet 0 albuterol sulfate 90 mcg/Actuation inhaler INHALE 2 PUFFS BY MOUTH EVERY 6 HOURS NEEDED FOR SHORTNESS OF BREATH 8.5 Gram 0 montelukast (SINGULAIR) 10 mg tablet TAKE 1 TABLET(10 MG) BY MOUTH DAILY AT BEDTIME 90 Tablet 3 cholestyramine, with sugar, (QUESTRAN) 4 gram Powder in Packet DISSOLVE CONTENTS OF 1 PACKET IN LIQUID AND DRINK BY MOUTH DAILY 90 Packet 3 SUMAtriptan (IMITREX) 100 mg tablet TAKE 1 TABLET BY MOUTH AT ONSET OF MIGRAINE. MAY REPEAT AFTER 2HOURS IF HEADACHE RETURNS. NOT TO EXCEED 2 TABLETS IN 24 HOURS 27 Tablet 3 naproxen (NAPROSYN) 500 mg tablet TAKE 1 TABLET BY MOUTH TWICE DAILY (Patient taking differently: Take 500 mg by mouth 2 times daily as needed.) 180 Tablet 0 glucosamine/chondr evans A sod (OSTEO BI-FLEX ORAL) Take by mouth daily. cetirizine (ZyrTEC) 10 mg tablet Take 10 mg by mouth daily. RESVERATROL ORAL Take by mouth daily. dextromethorphan-guaiFENesin (Mucinex DM) 30-600 mg Tablet Sustained Release 12HR Take 1 Capsule bymouth. BinaxNOW COVID-19 Ag Self Test Kit FOLLOW PACKAGE DIRECTIONS Biotin 1 mg Tablet Take by mouth. COLLAGEN MISC by Misc.(Non-Drug; Combo Route) route daily. Current Facility-Administered Medications on File Prior to Visit Medication Dose Route Frequency Provider Last Rate Last Admin lidocaine (XYLOCAINE MPF) 20 mg/mL (2%) cardiac injection 100 mg 5 mL See Admin Instructions intra-proc ONE time Aj Hodges MD Allergies Allergen Reactions Morphine Headache Trazodone Other (See Comments) Nightmares Lab Results Component Value Date/Time NA 140 10/12/2021 11:32 AM K 4.5 10/12/2021 11:32 AM CL 104 10/12/2021 11:32 AM CO2 27 10/12/2021 11:32 AM CA 9.2 10/12/2021 11:32 AM BUN 14 10/12/2021 11:32 AM CREAT 0.69 10/12/2021 11:32 AM GLUCOSE 87 10/12/2021 11:32 AM ANIONGAP 11 07/02/2020 09:17 AM BCRATIO NOT APPLICABLE 10/12/2021 11:32 AM Lab Results Component Value Date/Time WBC 7.3 07/02/2020 09:17 AM HGB 14.1 07/02/2020 09:17 AM HCT 42.1 07/02/2020 09:17 AM PLT 195 07/02/2020 09:17 AM MCV 104.5 (H) 07/02/2020 09:17 AM No results found for: INR, PT, PROTIMEPOC Review of Systems Physical Exam Constitutional: Appearance: She is well-developed. HENT: Head: Normocephalic and atraumatic. Eyes: Conjunctiva/sclera: Conjunctivae normal. Pupils: Pupils are equal, round, and reactive to light. Neck: Comments: Positive Spurling sign noted on the right. Pulmonary: Effort: Pulmonary effort is normal. Abdominal: Palpations: Abdomen is soft. Musculoskeletal: General: No tenderness. Normal range of motion. Cervical back: Normal range of motion. Skin: General: Skin is warm and dry. Neurological: General: No focal deficit present. Mental Status: She is alert and oriented to person, place, and time. Cranial Nerves: No cranial nerve deficit. Sensory: No sensory deficit. Coordination: Coordination normal. Deep Tendon Reflexes: Reflexes abnormal. Comments: Strength 5 out of 5 throughout. Reflexes are hyper both in the upper extremities and lower extremities but there is no clonus or Suha's noted. Psychiatric: Behavior: Behavior normal. Thought Content: Thought content normal. Diagnostic Data: The patient has no new imaging but again she has a disc osteophyte spur at C5-C6 off to the right. There is some mild to moderate spurring at C4-C5 bilaterally.. ASSESSMENT: Encounter Diagnosis Name Primary? Cervical radiculopathy at C6 Yes PLAN: Normal BMI Range: 18 & older: > or = 18.5 and < 25 Body mass index is 25.5 kg/m??. BMI within normal limits No orders of the defined types were placed in this encounter. TOBACCO COUNSELING She is not a tobacco/nicotine user. Assessment and Plan: My assessment at this point is that Jody is suffering from a cervical radiculitis that continues to persist. At this point her major complaint is neck pain. I think it would be reasonable to try medial branch blocks and radiofrequency ablation from C4-C6 to help her avoid surgery. I am going to follow-up with her in 6 months we will be happy to see her sooner if the situation worsens or she develops any weakness. Hopefully this will help her. Thank you. documented in this encounter Miscellaneous Notes * Patient Instructions - Reji Blankenship - 09/06/2022 11:20 AM CDT Your Medial Branch Block #`1 is scheduled on October 09 with an arrival time of 7:30 am . Your Medical Branch Block #2 is scheduled on October 23 with an arrival time of 10:30 am. Your Right Radiofrequency Ablation is scheduled on November 07 with an arrival time of 9:30 am. Your Left Radiofrequency Ablation is scheduled on November 21 with an arrival time of 9:30 am Please be on time, as we wish to honor everyone and their schedule. We know that things happen and if you arrive 15 minutes or more late, we will ask you to call the office to reschedule. The only exception will be a rare instance when there is a known cancellation, then we will ask if you would like to come back for that time slot or reschedule to another day. To reschedule your procedure, please call the office, , to make those arrangements. Please note, you will be required to have a regional owner operator truck driver for this appointment. Please bring your insurance card, regional owner operator truck driver's license, and updated list of medications with you to the procedure. If you have anyquestions, please call our office at [phone]. This procedure will be done at the [facility] [place] [address] [address] (next door to Spine and Pain Management.) documented in this encounter Plan of Treatment Upcoming Encounters Date Type Department Care Team (Late st Contact Info) Description 11/24/2024 9:30 AM CDT Office Visit [facility] Internal Medicine Medical [place] [address] [place] [address] [address] Melani Franklin DO [address] [place], [place] [id number] documented as of this encounter Visit Diagnoses Diagnosis Cervical radiculopathy at C6- Primary Brachial neuritis or radiculitis nos documented in this encounter Care Teams Foxing Painter Relationship Specialty Start Date End Date Melani Franklin DO [address] [place] [address] PCP - General Internal Medicine 01/02/17 documented as of this encounter
--- OUTSIDE RECORDS SUMMARY | 2024-02-21 16:30 | XMS_ITS | Encounter Summary ---
Author Organization [facility] Address [address] [place] [address] Care Team Providers Care Labor Relations Analyst Name Role Phone Melani Franklin DO Primary Care Provider [phone] Encounter Details Date Type Department Care Team (Late Contact Info) Description 08/17/2022 Orders Only [facility] Internal Medicine [facility] [address] [place] [address] Provider, Abstract NO ADDRESS ON [...] 9:30 AM CDT Office Visit [facility] Internal Medicine [facility] [address] [address] Melani Franklin DO [address] [facility] [address] [facility] [address] [place] [address] documented as of this encounter Procedures Procedure Name Priority Date/Time Associated Diagnosis Comments HEARING TEST Routine 12/07/2021 3:12 PM CDT documented in this encounter Results * HEARING TEST (12/07/2021 3:12 PM CDT) Abstract Provider ENT ORDERABLES [facility], DENITA ART MD CLIA# [id number] [address] [place], [place] [id number] documented in this encounter Visit Diagnoses Not on filedocumented in this encounter Care Teams Labor Relations Analyst Relationship Specialty Start Date End Date Melani Franklin DO [address] [place] [address] PCP - General Internal Medicine 01/02/17 documented as of this encounter
--- OUTSIDE RECORDS SUMMARY | 2024-02-21 16:30 | XMS_ITS | Encounter Summary ---
Author Organization [facility] Address [address] [place] [address] Care Team Providers Care Steam Drier Tender Name Role Phone Melani Franklin DO Primary Care Provider [phone] Reason for Visit * Reason Onset Date Comments Medication Refill 09/12/2022 Encounter Details Date Type Department Care Team (Late st Contact Info) Description 09/12/2022 Refill [facility] Internal Medicine Medical [facility] [address] [address] Melani Franklin DO [address] [place] [address] Social History Tobacco Use Types [...] Franklin DO - 09/13/2022 7:06 AM CDT Patient to contact provider office first * Telephone Encounter - Misty Treadwell - 09/12/2022 4:35 PM CDT Recent Visits Date Type Provider Dept 01/04/22 Office Visit Barbara Graham, MEHRAN [facility] [place] [facility] [address] 10/12/21 Office Visit Melani Franklin DO [facility] [place] [address] 06/08/21 Office Visit Michelle Temple, MEHRAN [facility] Int [facility] [place] [address] Showing recent visits within past 540 days with a meds authorizing provider and meeting all other requirements Future Appointments Date Type Provider Dept 10/17/22 Appointment Melani Franklin DO [facility] [place] [address] Showing future appointments within next 150 days with a meds authorizing provider and meeting all other requirements LR 06/16/2020 QTY 180 documented in this encounter Plan of Treatment Upcoming Encounters Date Type Department Care Team (Late st Contact Info) Description 11/24/2024 9:30 AM CDT Office Visit [facility] Internal Medicine Medical [place] [address] [address] Melani Franklin DO [address] [facility] [address] [facility] [address] [place] [address] documented as of this encounter Visit Diagnoses Not on filedocumented in this encounter Care Teams Steam Drier Tender Relationship Specialty Start Date End Date Melani Franklin DO [address] [place], [place] [id number] PCP - General Internal Medicine 01/02/17 documented as of this encounter
--- OUTSIDE RECORDS SUMMARY | 2024-02-21 16:30 | XMS_ITS | Encounter Summary ---
Author Organization [id number] [facility] Address [address] [place] [address] Care Team Providers Care Vendette Name Role Phone Melani Franklin DO Primary Care Provider [phone] Reason for Referral * Outpatient Services (Routine) - Closed Specialty Diagnoses / Procedures Referred By Tyrone baxter Referred To Contact Diagnoses Cervical radiculopathy at C6 Procedures PAIN PROCEDURE VT NJX DX/THER AGT PVRT FACET JT CRV/THRC 1 LEVEL VT NJX DX/THER AGT PVRT FACET JT CRV/TH[place] 2[place] [address] [address] Referral ID Status Reason Start Date Expiration Date Visits Re quested Visits Authorized [id number] Closed 10/09/2022 01/02/2023 1 1 Reason for Visit * Auth/Cert (Routine) Specialty Diagnoses / Procedures Referred By Tyrone baxter Referred To Contact Pain Management Aj Hodges [place] [id number] [place] [phone] [facility] Pain Management Procedures [facility] [id number] [place] [address] Referral ID Status Reason Start Date Expiration Date Visits Re quested Visits Authorized [id number] 1 1 Encounter Details Date Type Department Care Team (Late st Contact Info) Description 10/09/2022 7:49 AM CDT - 10/09/2022 11:59 PM CDT Hospital Encounter [facility] Imaging Services [facility] [id number] [place], [place] [id number] [place] [address] [facility] [address] [place] [address] Discharge Disposition: Home or Self [...] Sign Reading Time Taken Comments Blood Pressure 132/99 10/09/2022 8:39 AM CDT Pulse 75 10/09/2022 8:39 AM CDT Temperature - - Respiratory Rate 18 10/09/2022 8:39 AM CDT Oxygen Saturation 98% 10/09/2022 8:39 AM CDT Inhaled Oxygen Concentration - - Weight - - Height - - Body Mass Index - - documented in this encounter Discharge Instructions * Discharge Instructions* Mary Waterman GN - 10/09/2022 7:52 AM CDT [facility] [place] Discharge Instructions Office Activity: You should take [...] H&P Notes * Aj Hodges MD - 10/09/2022 8:00 AM CDT [facility] SPINE AND PAIN MANAGEMENT [facility] PROCEDURE H&P Jody Mason is a 52 [...] procedure as prior conservative therapy has failed. Past Medical History: Diagnosis Date Anxiety Arthritis [...] performed by Barrington Bueno MD at [facility] Allergies Allergen Reactions Morphine Headache Trazodone Other (See Comments) Nightmares Current Outpatient Medications Medication Sig Dispense Refill buPROPion HCL (WELLBUTRIN XL) 150 mg Extended Release 24 hour tablet TAKE 1 TABLET(150 MG) BY MOUTHDAILY IN THE MORNING 90 Tablet 1 ALPRAZolam (XANAX) 0.25 mg tablet TAKE 1 TO 2 TABLETS(0.25 TO 0.5 MG) BY MOUTH EVERY NIGHT NEEDED FOR ANXIETY OR INSOMNIA 30 Tablet 0 escitalopram oxalate (LEXAPRO) 20 mg tablet TAKE 1 TABLET(20 MG) BY MOUTH DAILY 90 Tablet 3 lisinopril-hydroCHLOROthiazide (ZESTORETIC) 10-12.5 mg tablet TAKE 1 TABLET BY MOUTH DAILY 90 Tablet 3 diazePAM (VALIUM) 5 mg tablet TAKE DIRECTED UPON ARRIVAL FOR PROCEDURE AND THEN EVERY 6 HOURS ASNEEDED POST-OP naproxen (NAPROSYN) 500 mg tablet Take 1 [...] CAPSULE BY MOUTH DAILY 90 Capsule 3 chlorhexidine gluconate 0.12 % Mouthwash RINSE MOUTH WITH ONE OUNCE TWICE DAILY. ONCE AFTER EATING IN THE MORNING THEN AGAIN AFTER BRUSHING BEFORE BEDTIME dextromethorphan-guaiFENesin (Mucinex DM) 30-600 mg Tablet Sustained Release 12HR Take 1 Capsule bymouth. turmeric root extract 500 mg Capsule Take [...] DRINK BY MOUTH DAILY 90 Packet 3 Biotin 1 mg Tablet Take by [...] time Aj Hodges MD 3 mL at 10/09/22 0811 [COMPLETED] lidocaine PF 2% (XYLOCAINE MPF) injection 5 mL 5 mL See Admin Instructions intra-proc ONE time Aj Hodges MD 5 mL at 10/09/22 0815 lidocaine (XYLOCAINE MPF) 20 mg/mL (2%) cardiac injection 100 mg 5 mL See Admin Instructions intra-proc ONE time Aj Hodges MD ROS: no pertinent findings PHYSICAL EXAM BP (!) 132/99 (BP Location: Right arm) Pulse 75 Resp 18 SpO2 98% Neuro: A/Ox3 Lungs: Equal chest rise bilaterally CV: regular pulse by pulse oximetry Mood: normal/pleasant Neck: Paraspinal muscle tenderness, facet loading positive FOLLOW-UP PLAN AFTER THIS PROCEDURE Schedule MBB vs RFA per protocol Aj Hodges MD Anesthesiology and Pain Management documented in this encounter OR Notes * Operative Report - Aj Hodges MD - 10/09/2022 8:00 AM CDT DATE OF SURGERY: 10/09/2022 TITLE OF PROCEDURE: Cervical diagnostic Medial Branch Block #1/2 INDICATION: Facet related pain by history and physical exam. Pain is facet joint (z-joint) mediateddisease that is aggravated by hyperextension, rotation or lateral bending. This was confirmed by provocative testing. LEVELS TREATED: C4-C5 and C5-C6 SIDE: Bilateral [...] questions or problems. Preprocedural pain score was 8/10 Post procedural pain score was 0/10 Greater [...] Visit [facility] Internal Medicine Medical [place] [address] [address] NoemiMelani Linda, DO [address] [facility] [address] [place] [address] Scheduled Orders Name Type Priority Associated Diagnoses Orde r Schedule PAIN PROCEDURE Neurology Routine Cervical radiculopathy at C6 Added to HDF configuration to grandchildren will have ORD item [id number] populate with time. for 1 Occurrences starting 10/09/2022 until 10/09/2022 documented as of this encounter Procedures Procedure Name Priority Date/Time Associated Diagnosis Comments XR FLUORO NEEDLE GUIDANCE SPINE Routine 10/09/2022 8:19 AM CDT documented in this encounter Results * XR FLUORO NEEDLE GUIDANCE SPINE (10/09/2022 8:19 AM CDT) Narrative [facility] ONCOL[facility]Y [facility] - [facility] IM[facility] - 10/09/2022 8:19 AM CDT Order information only. ??Exam was auto-finalized. ?? Aj Hodges MD DIAGNOSTIC IMAGING O RDERABLES [facility] ONCOL[facility]Y SERVICES - [facility] IM[facility] CLIA#[id number] [place] [address] documented in this encounter Visit Diagnoses Diagnosis Cervical radiculopathy at C6 Brachial neuritis or radiculitis nos documented in this encounter Administered Medications Inactive Administered Medications - up to 3 most recent administrations Medication Order MAR Action Action Date Dose Rate Site lidocaine PF 1% (XYLOCAINE MPF) injection 2-4 mL 2-4 mL, Infiltration, INTRA-PROCEDURE ONCE, 1 dose, Starting on Sun10/09/22 at 0802, Until Sun10/09/22 at 0811, Routine, Pre-Procedure Given 10/09/2022 8:11 AM CDT 3 mL lidocaine PF 2% (XYLOCAINE MPF) injection 5 mL 5 mL, See Admin Instructions, INTRA-PROCEDURE ONCE, 1 dose, Starting on Sun10/09/22 at 0802, Until Sun10/09/22 at 0815, Routine, Pre-Procedure Given 10/09/2022 8:15 AM CDT 5 mL Oper ative Site documented in this encounter Care Teams Vendette Relationship Specialty Start Date End Date Melani Franklin DO [address] [place] [address] [address] [place] [address] PCP - General Internal Medicine 01/02/17 documented as of this encounter
--- OUTSIDE RECORDS SUMMARY | 2024-02-21 16:30 | XMS_ITS | Encounter Summary ---
Author Organization [facility] Address [address] [place] [address] Care Team Providers Care Dray Driver Name Role Phone Melani Franklin DO Primary Care Provider [phone] Reason for Visit * Reason Comments Med Refill Encounter Details Date Type Department Care Team (Late st Contact Info) Description 10/13/2022 Refill [facility] Internal Medicine Medical [place] [address] [address] Melani Franklin DO [address] [facility] [address] [place] [address] Social History Tobacco Use Types [...] * Telephone Encounter - Misty Treadwell - 10/13/2022 8:58 AM CDT Recent Visits Date Type Provider Dept 01/04/22 Office Visit Barbara Graham NP [facility] Int Med [place] [address] 10/12/21 Office Visit Melani Franklin DO [facility] Int Med [place] [address] 06/08/21 Office Visit Michelle Temple NP [facility] Int Med [place] [address] Showing recent visits within past 540 days with a meds authorizing provider and meeting all other requirements Future Appointments Date Type Provider Dept 10/17/22 Appointment Melani Franklin DO [facility] Int Med [place] [address] Showing future appointments within next 150 days with a meds authorizing provider and meeting all other requirements LR: 01/09/2022 QTY: 90 documented in this encounter Plan of Treatment Upcoming Encounters Date Type Department Care Team (Late st Contact Info) Description 11/24/2024 9:30 AM CDT Office Visit [facility] Internal Medicine Medical [place] [address] [address] Melani Franklin DO [address] [facility] [address] [place] [address] documented as of this encounter Visit Diagnoses Not on filedocumented in this encounter Care Teams Dray Driver Relationship Specialty Start Date End Date Melani Franklin DO [address] [facility] [address] [place] [address] PCP - General Internal Medicine 01/02/17 documented as of this encounter
--- OUTSIDE RECORDS SUMMARY | 2024-02-21 16:30 | XMS_ITS | Encounter Summary ---
Author Organization [facility] Address [address] [place] [address] Care Team Providers Care Energy Director Name Role Phone Melani Franklin DO Primary Care Provider [phone] Reason for Visit * Reason Onset Date Comments Medication Refill 09/13/2022 Encounter Details Date Type Department Care Team (Late st Contact Info) Description 09/13/2022 Refill [facility] Internal Medicine Medical [place] A [facility] [address] [address] Melani Franklin DO [address] [facility] [address] [place] [address] Social History Tobacco Use Types [...] * Telephone Encounter - Misty Treadwell - 09/14/2022 9:38 AM CDT Recent Visits Date Type Provider Dept 01/04/22 Office Visit Barbara Graham NP [facility] Int Med [place] [address] 10/12/21 Office Visit Melani Franklin DO [facility] Int Med [place] [address] 06/08/21 Office Visit Michelle Temple NP [facility] Int Med [place] [address] Showing recent visits within past 540 days with a meds authorizing provider and meeting all other requirements Future Appointments Date Type Provider Dept 10/17/22 Appointment Melani Franklin DO [facility] Int Med [place] [address] Showing future appointments within next 150 days with a meds authorizing provider and meeting all other requirements LR 06/16/2020 QTY 180 documented in this encounter Plan of Treatment Upcoming Encounters Date Type Department Care Team (Late st Contact Info) Description 11/24/2024 9:30 AM CDT Office Visit [facility] Internal Medicine Medical [place] [address] [address] Melani Franklin DO [address] [facility] [address] [place] [address] documented as of this encounter Visit Diagnoses Not on filedocumented in this encounter Care Teams Energy Director Relationship Specialty Start Date End Date Melani Franklin DO [address] [facility] [address] [place] [address] PCP - General Internal Medicine 01/02/17 documented as of this encounter
--- OUTSIDE RECORDS SUMMARY | 2024-02-21 16:30 | XMS_ITS | Encounter Summary ---
Author Organization [facility] Address [address] [place] [address] Care Team Providers Care Manager Van Name Role Phone Melani Franklin DO Primary Care Provider [phone] Reason for Visit * Reason Comments Med Refill Encounter Details Date Type Department Care Team (Late st Contact Info) Description 09/12/2022 Refill [facility] Internal Medicine Medical [place] A [email or web address] [address] [facility] [address] [place] [address] Melani Franklin DO [address] [address] [place] [address] Mild episode of recurrent major depressive [...] Telephone Encounter - Misty Treadwell - 09/12/2022 4:34 PM CDT Recent Visits Date Type Provider Dept 01/04/22 Office Visit Barbara Graham NP [facility] Int Med [place] 189 10/12/21 Office Visit Melani Franklin DO [facility] Int Med [place] [address] 06/08/21 Office Visit Michelle Temple, MEHARN [facility] Int Med [place] A [place] [address] Showing recent visits within past 540 days with a meds authorizing provider and meeting all other requirements Future Appointments Date Type Provider Dept 10/17/22 Appoint[address] Franklin DO [facility] Int Med [place] [address] Showing future appointments within next 150 days with a meds authorizing provider and meeting all other requirements Last refill 03/13/2022 Quantity 90 Requested Prescriptions Pending Prescriptions Disp Refills buPROPion HCL XL 150 mg 24 hr tablet, extended release (WELLBUTRIN XL) [Pharmacy Med Name: BUPROPION XL 150MG TABLETS (24 H)] 90 Tablet 1 Sig: TAKE 1 TABLET(150 MG) BY MOUTH DAILY IN THE MORNING documented in this encounter Plan of Treatment Upcoming Encounters Date Type Department Care Team (Late st Contact Info) Description 11/24/2024 9:30 AM CDT Office Visit [facility] Internal Medicine Medical [place] [address] [address] [facility] [address] [address] Melani Franklin DO [address] [facility] [address] [place] [address] documented as of this encounter Visit Diagnoses Diagnosis Mild episode of recurrent major depressive disorder NAOMI (generalized anxiety disorder) Generalized anxiety disorder documented in this encounter Care Teams Manager Van Relationship Specialty Start Date End Date Melani Franklin DO [address] [facility] [address] [place] [address] PCP - General Internal Medicine 01/02/17 documented as of this encounter
--- OUTSIDE RECORDS SUMMARY | 2024-02-21 16:31 | XMS_ITS | Encounter Summary ---
Author Organization [facility] Address [address] [facility] Attn: [place] [address] Care Team Providers Care Hydro Station Operator Name Role Phone Melani Franklin DO Primary Care Provider [phone] Encounter Details Date Type Department Care Team (Latest Contact Info) Description 06/08/2022 Travel Social History Tobacco Use Types Packs/Day [...] AM CDT Sexual Orientation Not on file COVID-19 Exposure Response Date Recorded In the last 10 days, have yo u been in contact with someone who was confirmed or suspected to have Coronavirus/COVID-19? No / Unsure 06/08/2022 11:53 AM CDT documented as of this encounter Plan of Treatment Upcoming Encounters Date Type Department Care Team (Late st Contact Info) Description 11/24/2024 9:30 AM CDT Office Visit [facility] Internal Medicine Medical [place] A [address] [facility] [address] [address] Melani Franklin DO [address] [facility] [address] [place] [address] documented as of this encounter Visit Diagnoses Not on filedocumented in this encounter Care Teams Hydro Station Operator Relationship Specialty Start Date End Date Melani Franklin DO [address] [facility] [address] [place] [address] PCP - General Internal Medicine 01/02/17 documented as of this encounter
--- OUTSIDE RECORDS SUMMARY | 2024-02-21 16:31 | XMS_ITS | Encounter Summary ---
Author Organization [facility] Address [address] [place] [address] Care Team Providers Care Software Testing Specialist Name Role Phone Melani Franklin DO Primary Care Provider [phone] Encounter Details Date Type Department Care Team (Late st Contact Info) Description 06/08/2022 11:58 AM CDT - 06/08/2022 11:59 PM CDT Hospital Encounter [facility] Imaging Services [facility] [address] [place] [address] [place] [address] [address] Discharge Disposition: Home or Self [...] AM CDT documented as of this encounter Medications at Time of Discharge Medication Sig Dispensed Refills Start Date End Date turmeric root extract 500 mg Capsule Take 1 Capsule by mouth. albuterol sulfate 90 mcg/Actuation inhalerIndications:Mild intermittent extrinsic asthma without complication INHALE 2 PUFFS BY MOUTH EVERY 6 HOURS NEEDED FOR SHORTNESS OF BREATH 8.5 Gram 11/10/2021 Biotin 1 mg Tablet Take by mouth. cetirizine (ZyrTEC) 10 mg tablet Take 10 mg by mouth daily. RESVERATROL ORAL Take by mouth daily. cyclobenzaprine (FLEXERIL) 10 mg tabletIndications:Neck pain, bilateral Take 1 Tablet (10 mg) by mouth 3 times daily as needed for Spasm. 30 Tablet 05/03/2022 01/04/2023 buPROPion HCL (WELLBUTRIN XL) 150 mg Extended Release 24 hour tabletIndications:Mild episode of recurrent major depressive disorder,NAOMI (generalized anxiety disorder) TAKE 1 TABLET(150 MG) BY MOUTH DAILY IN THE MORNING 90 Tablet 1 03/13/2022 09/13/2022 escitalopram oxalate (LEXAPRO) 20 mg tabletIndications:Mild episode of recurrent major depressive disorder TAKE 1 TABLET(20 MG) BY MOUTH DAILY 90 Tablet 3 02/28/2022 06/05/2023 lisinopril-hydroCHLOROt hiazide (ZESTORETIC) 10-12.5 mg tablet TAKE 1 TABLET BY MOUTH DAILY 90 Tablet 3 01/09/2022 10/15/2022 zolpidem (AMBIEN) 5 mg tabletIndications:Insom adis, unspecified type TAKE 1 TO 2 TABLETS(5 TO 10 MG) BY MOUTH EVERY NIGHT NEEDED FOR INSOMNIA 30 Tablet 1 11/23/2021 08/07/2022 montelukast (SINGULAIR) 10 mg tablet TAKE 1 TABLET(10 MG) BY MOUTH DAILY AT BEDTIME 90 Tablet 3 10/30/2021 10/29/2022 ALPRAZolam (XANAX) 0.25 mg tabletIndications:Insom adis, unspecified type Take 1-2 Tablets (0.25-0.5 mg) by mouth nightly as needed for Anxiety or Insomnia. 30 Tablet 1 07/07/2021 06/12/2022 valACYclovir (VALTREX) 1 gram tabletIndications:Cold sore TAKE 2 TABLETS BY MOUTH TWICE DAILY 4 Tablet 3 06/24/2021 07/29/2022 naproxen (NAPROSYN) 500 mg tablet TAKE 1 TABLET BY MOUTH TWICE DAILY 180 Tablet 06/16/2020 09/13/2022 documented as of this encounter Plan of Treatment Upcoming Encounters Date Type Department Care Team (Late st Contact Info) Description 11/24/2024 9:30 AM CDT Office Visit [facility] Internal Medicine Medical [place] A [address] [facility] [address] [address] Melani Franklin DO [address] [facility] [address] [place] [address] documented as of this encounter Procedures Procedure Name Priority Date/Time Associated Diagnosis Comments XR FLUORO NEEDLE GUIDANCE SPINE Routine 06/08/2022 12:10 PM CDT documented in this encounter Results * XR FLUORO NEEDLE GUIDANCE SPINE (06/08/2022 12:10 PM CDT) Narrative [facility] - 06/08/2022 12:10 PM CDT Order information only. ??Exam was auto-finalized. ?? Aj Hodges MD DIAGNOSTIC IMAGING O RDERABLES [facility] CLIA# [id number] [facility] [place] [address] documented in this encounter Visit Diagnoses Not on filedocumented in this encounter Care Teams Software Testing Specialist Relationship Specialty Start Date End Date Melani Franklin DO [address] [facility] [address] [place], [place] [address] PCP - General Internal Medicine 01/02/17 documented as of this encounter
--- OUTSIDE RECORDS SUMMARY | 2024-02-21 16:31 | XMS_ITS | Encounter Summary ---
Author Organization [facility] Address [address] [place] [address] Care Team Providers Care Manager Icu Name Role Phone Melani Franklin DO Primary Care Provider [phone] Reason for Visit * Reason Onset Date Comments Medication Refill 08/01/2022 Encounter Details Date Type Department Care Team (Late st Contact Info) Description 08/01/2022 Refill [facility] Internal Medicine Medical [place] A [facility] [address] [facility] [address] [address] Melani Franklin DO [address] [facility] [address] [place] [address] Cold sore Social History Tobacco Use Types Packs/Day Years [...] encounter Miscellaneous Notes * Telephone Encounter - Elle Madrid - 08/01/2022 11:54 AM CDT LR: 06/24/21 Recent Visits Date Type Provider Dept 01/04/22 Office Visit Barbara Graham, MEHRAN [facility] Int Med [place] A [address] 10/12/21 Office Visit Melani Franklin DO [facility] Int Med [place] [address] 06/08/21 Office Visit Michelle Temple, MEHRAN [facility] Int Med [place] [address] Showing recent visits within past 540 days with a meds authorizing provider and meeting all other requirements Future Appointments Date Type Provider Dept 10/17/22 Appointment Melani Franklin DO [facility] Int Med [place] A [address] Showing future appointments within next 150 days with a meds authorizing provider and meeting all other requirements documented in this encounter Plan of Treatment Upcoming Encounters Date Type Department Care Team (Late st Contact Info) Description 11/24/2024 9:30 AM CDT Office Visit [facility] Internal Medicine Medical [place] A [place] [address] [facility] [address] [address] Melani Franklin DO [address] [facility] [address] [place], [place] [address] documented as of this encounter Visit Diagnoses Diagnosis Cold sore Herpes simplex without mention of complication documented in this encounter Care Teams Manager Icu Relationship Specialty Start Date End Date Melani Franklin DO [address] [facility] [address] [place], [place] [address] PCP - General Internal Medicine 01/02/17 documented as of this encounter
--- OUTSIDE RECORDS SUMMARY | 2024-02-21 16:31 | XMS_ITS | Encounter Summary ---
Author Organization [facility] Address [address] [facility] Attn: [place] [address] Care Team Providers Care Search Engine Optimization Manager Name Role Phone Melani Franklin DO Primary Care Provider [phone] Encounter Details Date Type Department Care Team (Latest Contact Info) Description 06/07/2022 Travel Social History Tobacco Use Types Packs/Day [...] suspected to have Coronavirus/COVID-19? No / Unsure 06/07/2022 11:25 AM CDT documented as of this encounter Plan of Treatment Upcoming Encounters Date Type Department Care Team (Late st Contact Info) Description 11/24/2024 9:30 AM CDT Office Visit [facility] Internal Medicine Medical [place] A [place]ANE [address] [facility] [address] [address] Melani Franklin DO [address] [facility] [address] [place] [address] documented as of this encounter Visit Diagnoses Not on filedocumented in this encounter Care Teams Search Engine Optimization Manager Relationship Specialty Start Date End Date Melani Franklin DO [address] [facility] [address] [place] [address] PCP - General Internal Medicine 01/02/17 documented as of this encounter
--- OUTSIDE RECORDS SUMMARY | 2024-02-21 16:31 | XMS_ITS | Encounter Summary ---
Author Organization [employer] [facility] Address [address] [place] [address] Care Team Providers Care Poolroom Table Attendant Name Role Phone Melani Franklin DO Primary Care Provider [phone] Reason for Referral * Outpatient Services (Routine) - Closed Specialty Diagnoses / Procedures Referred By Tyrone baxter Referred To Contact Diagnoses Cervical radiculopathy at C6 Procedures EPIDURAL STEROID INJECTION, CERVICAL/THORACIC NC NJX DX/THER SBST INTRLMNR CRV/THRC W/[place] [id number] [address] Referral ID Status Reason Start Date Expiration Date Visits Re quested Visits Authorized [id number] Closed 06/08/2022 09/06/2022 1 1 Reason for Visit * Outpatient Services (Routine) - Closed Specialty Diagnoses / Procedures Referred By Tyrone baxter Referred To Contact Diagnoses Cervical radiculopathy at C6 Procedures EPIDURAL STEROID INJECTION, CERVICAL/THORACIC NC NJX DX/THER SBST INTRLMNR CRV/THRC W/[place] [id number] [address] Referral ID Status Reason Start Date Expiration Date Visits Re quested Visits Authorized [id number] Closed 06/08/2022 09/06/2022 1 1 Encounter Details Date Type Department Care Team (Late st Contact Info) Description 06/08/2022 11:53 AM CDT - 06/08/2022 11:59 PM CDT Hospital [facility] [address] [facility] [address] [place] [address] [place] [address] [facility] [address] [place] [address] Discharge Disposition: Home or Self [...] AM CDT documented as of this encounter Last Filed Vital Signs Vital Sign Reading Time Taken Comments Blood Pressure 145/86 06/08/2022 12:12 PM CDT Pulse 80 06/08/2022 12:12 PM CDT Temperature - - Respiratory Rate 18 06/08/2022 12:12 PM CDT Oxygen Saturation 99% 06/08/2022 12:12 PM CDT Inhaled Oxygen Concentration - - Weight - - Height - - Body Mass Index - - documented in this encounter Discharge Instructions * Discharge Instructions* Cris Meyers RN - 06/08/2022 11:54 AM CDT [facility] [place] Discharge Instructions Office My Nubia is the most effective way to communicate with [facility] and we would like you to use My Millie[facility] to communicate about your injection as well. Dr. Hodges would like you to have a follow-up office visit with Essie in the next 2-4 weeks. Activity: You should take it easy for the remainder of today. If you are a diabetic, you need to be aware that the steroids will increase your blood sugar. You will need to check your blood sugar frequently and contact your Primary Care Physician as needed for additional orders. The day following the procedure: If you are on Blood Thinners and you held them, you may start these again on the day following the procedure. You can [...] days with full potential at about 2-3weeks. The pain may return and you may also have some pressure, this is normal and you may use ice for the day of the procedure, for 15 minutes of every hour, and ice or heat, starting the day after the procedure, for 15 minutes out of every hour. You may also use Tylenol/Advil as tolerated, to help with the pain. If you routinely need antibiotic prophylaxis please continue these as prescribed by your primary care physician. * If you have a fever greater than 100 degrees, chills, severe headache, redness or swelling at theinjection site - call . If experiencing these symptoms after business hours, call , speak to the field crops harvest machine operator and ask for the pain doctor position classifier. * If you feel you are experiencing a life-threatening emergency or other serious symptoms (abrupt progressive weakness in the legs or loss of bowel/bladder control), please call [phone] or go immediately to the Emergency Room. [...] 06/16/2020 09/13/2022 documented as of this encounter H&P Notes * Aj Hodges MD - 06/08/2022 12:10 PM CDT [facility] PROCEDURE VISIT H&P UPDATE Jody Mason is a 52 y.o. female here for lateralizing to right [place] DANILO at C7-T1 without catheter. The patient's pain has been present for over 4 weeks and has failed to respond significantly to conservative treatments. This is patient's first epidural. Patient understands the plans and wishes to [...] HX CHOLECYSTECTOMY 2009 HX COCCYGECTOMY LAP CHOLECYSTECTOMY NC COLONOSCOPY FLX DX W/COLLJ SPEC WHEN PFRMD N/A 08/26/2020 COLONOSCOPY performed by Barrington Bueno MD at [facility] Allergies Allergen Reactions Morphine Headache [...] Ag Self Test Kit FOLLOW PACKAGE DIRECTIONS diazePAM (VALIUM) 5 mg tablet TAKE DIRECTED UPON ARRIVAL FOR PROCEDURE AND THEN EVERY 6 HOURS ASNEEDED POST-OP turmeric root extract 500 mg Capsule Take 1 Capsule by mouth. meloxicam (Mobic) 15 mg tablet Take 1 Tablet (15 mg) by mouth daily. 14 Tablet 0 zolpidem (AMBIEN) 5 mg tablet TAKE 1 TO 2 TABLETS(5 TO 10 MG) BY MOUTH EVERY NIGHT NEEDED FOR INSOMNIA 30 Tablet 1 albuterol sulfate 90 mcg/Actuation inhaler INHALE 2 [...] Biotin 1 mg Tablet Take by mouth. ALPRAZolam (XANAX) 0.25 mg tablet Take 1-2 Tablets (0.25-0.5 mg) by mouth nightly as needed for Anxiety or Insomnia. 30 Tablet 1 valACYclovir (VALTREX) 1 gram tablet TAKE 2 TABLETS BY MOUTH TWICE DAILY 4 Tablet 3 SUMAtriptan (IMITREX) 100 mg tablet TAKE [...] Frequency Provider Last Rate Last Admin lidocaine PF 2% (XYLOCAINE MPF) injection 0.5 mL 0.5 mL Infiltration ONE time only Aj Hodges MD lidocaine (XYLOCAINE MPF) 20 mg/mL (2%) cardiac injection 100 mg 5 mL See Admin Instructions intra-proc ONE time Aj Hodges MD ROS: no pertinent findings PHYSICAL EXAM There were no vitals taken for this visit. Neuro: A/Ox3 Lungs: Equal chest rise bilaterally CV: regular pulse by pulse oximetry Mood: normal/pleasant FOLLOW-UP PLAN AFTER THIS PROCEDURE May repeat procedure in 4-12 weeks PRN depending on percentage of pain relief. If pain relief is greater than 50% we can repeat procedure again in 12 weeks. If pain relief is less than 50% we will schedule for: C6-C7 interlaminar epidural injection, right paramedian approach. Aj Hodges MD Anesthesiology and Pain Management documented in this encounter OR Notes * Operative Report - Aj Hodges MD - 06/08/2022 12:10 PM CDT Date: 06/08/2022 Procedure: 1) C7-T1 interlaminar epidural steroid injection 2) Fluoroscopic guidance [...] towels. Fluoroscopy was used to identify the C7-T1 interlaminar space and the skinover this spot [...] placed in the chart. After negative aspiration 1mL of PSNF, 0.5 mL of Lidocaine 2% and 15 mg of Decadron was injected [...] [facility] Internal Medicine Medical [place] [facility] [address] [facility] [address] [id number] Noemi Melanilisa Mckeon, DO [address] [facility] [address] [place] [address] Scheduled Orders Name Type Priority Associated Diagnoses Orde r Schedule EPIDURAL STEROID INJECTION, CERVICAL/THORACIC Neurology Routine Cervical radiculopathy at C6 Added to HDF configuration to grandchildren will have ORD item [id number] populate with time. for 1 Occurrences starting 06/08/2022 until 06/08/2022 documented as of this encounter Procedures Procedure Name Priority Date/Time Associated Diagnosis Comments XR FLUORO NEEDLE GUIDANCE SPINE Routine 06/08/2022 12:10 PM CDT documented in this encounter Results * XR FLUORO NEEDLE GUIDANCE SPINE (06/08/2022 12:10 PM CDT) Narrative [facility] - 06/08/2022 12:10 PM CDT Order information only. ??Exam was auto-finalized. ?? Aj Hodges MD DIAGNOSTIC IMAGING O RDERABLES [facility] CLIA# [id number] [facility] [address] [place] [address] documented in this encounter Visit Diagnoses Diagnosis Cervical radiculopathy at C6 Brachial neuritis or radiculitis nos documented in this encounter Administered Medications Inactive Administered Medications - up to 3 most recent administrations Medication Order MAR Action Action Date Dose Rate Site dexAMETHasone (PF) (DECADRON) injection 15 mg 15 mg, See Admin Instructions, INTRA-PROCEDURE ONCE, 1 dose, Starting on Tiffany 06/08/22 at 1210, Until Tiffany 06/08/22 at 1208, Routine, Pre-Procedure Given 06/08/2022 12:08 PM CDT 15 mg Operative Site Iopamidol (ISOVUE-M 300) 300 mg iodine /mL (61 %) injection 3 mL 3 mL, Epidural, INTRA-PROCEDURE ONCE, 1 dose, Starting on Tiffany 06/08/22 at 1210, Until Tiffany 06/08/22 at 1216, Routine, Pre-Procedure Contrast Given 06/08/2022 12:16 PM CDT 1 mL lidocaine PF 2% (XYLOCAINE MPF) injection 0.5 mL 0.5 mL, Infiltration, ONE TIME ONLY, 1 dose, On Sun06/07/22 at 1445, Routine Given 06/08/2022 12:14 PM CDT 2.5 mL sodium chloride 0.9% vial - DILUENT 10 mL, See Admin Instructions, INTRA-PROCEDURE ONCE, 1 dose, Starting on Tiffany 06/08/22 at 1210, Until Tiffany 06/08/22 at 1215, Routine, Pre-Procedure Given 06/08/2022 12:15 PM CDT 1 mL Operative Site documented in this encounter Care Teams Poolroom Table Attendant Relationship Specialty Start Date End Date Melani Franklin DO [address] [place] [address] [address] [place] [address] PCP - General Internal Medicine 01/02/17 documented as of this encounter
--- OUTSIDE RECORDS SUMMARY | 2024-02-21 16:31 | XMS_ITS | Encounter Summary ---
Author Organization [facility] Address [address] [place] [address] Care Team Providers Care Electrical Prospecting Observer Name Role Phone Melani Franklin DO Primary Care Provider [phone] Reason for Visit * Reason Onset Date Comments Medication Refill 07/29/2022 Encounter Details Date Type Department Care Team (Late st Contact Info) Description 07/29/2022 Refill [facility] Internal Medicine [facility] [place] [facility] [address] [facility] [address] [address] Melani Franklin DO [address] [facility] [address] [place] [address] Cold sore Social History Tobacco [...] Telephone Encounter - Elle Madrid - 08/01/2022 11:39 AM CDT LR: 06/24/21 Recent Visits Date Type Provider Dept 01/04/22 Office Visit Barbara Graham, MEHRAN [facility] Int [facility] [place] [address] 10/12/21 Office Visit Melani Franklin DO [facility] [address] 06/08/21 Office Visit Michelle Temple, MEHRAN [facility] Int Med [facility] A [address] Showing recent visits within past 540 days with a meds authorizing provider and meeting all other requirements Future Appointments Date Type Provider Dept 10/17/22 Appointment Melani Franklin DO [facility] Int Med [facility] A [address] Showing future appointments within next 150 days with a meds authorizing provider and meeting all other requirements documented in this encounter Plan of Treatment Upcoming Encounters Date Type Department Care Team (Late st Contact Info) Description 11/24/2024 9:30 AM CDT Office Visit [facility] Internal Medicine Medical [place] A [place] [address] [facility] [address] [address] Melani Franklin DO [address] [facility] [address] [place], [place] [phone] documented as of this encounter Visit Diagnoses Diagnosis Cold sore Herpes simplex without mention of complication documented in this encounter Care Teams Electrical Prospecting Observer Relationship Specialty Start Date End Date Melani Franklin DO [address] [facility] [address] [place], [place] [id number] PCP - General Internal Medicine 01/02/17 documented as of this encounter
--- OUTSIDE RECORDS SUMMARY | 2024-02-21 16:31 | XMS_ITS | Encounter Summary ---
Author Organization [facility] Address [address] [place] [address] Care Team Providers Care Medical Clerk Name Role Phone Melani Franklin DO Primary Care Provider [phone] Reason for Visit * Reason Comments Med Refill Encounter Details Date Type Department Care Team (Late st Contact Info) Description 06/12/2022 Refill [facility] Internal Medicine Medical [place] [facility] [address] [facility] [address] [place] [address] Melani Franklin, [address] [address] Insomnia, unspecified type Social History [...] AM CDT documented as of this encounter Miscellaneous Notes * Telephone Encounter - Elle Madrid - 06/12/2022 10:53 AM CDT Last refill 07/07/21 Quantity 30 Requested Prescriptions Pending Prescriptions Disp Refills ALPRAZolam 0.25 mg tablet (XANAX) [Pharmacy Med Name: ALPRAZOLAM 0.25MG TABLETS] 30 Tablet Sig: TAKE 1 TO 2 TABLETS(0.25 TO 0.5 MG) BY MOUTH EVERY NIGHT NEEDED FOR ANXIETY OR INSOMNIA Recent Visits Date Type Provider Dept 01/04/22 Office Visit Barbara Graham, MEHRAN [facility] Int Med [place] A [address] 10/12/21 Office Visit Melani Franklin DO [facility] Int Med [place] A [address] 06/08/21 Office Visit Michelle Temple NP [facility] Int Med [place] A [address] Showing recent visits within past 540 days with a meds authorizing provider and meeting all other requirements Future Appointments Date Type Provider Dept 10/17/22 Appointment Melani Frankiln DO [facility] Int Med [place] A [address] Showing future appointments within next 150 days with a meds authorizing provider and meeting all other requirements documented in this encounter Plan of Treatment Upcoming Encounters Date Type Department Care Team (Late st Contact Info) Description 11/24/2024 9:30 AM CDT Office Visit [facility] Internal Medicine Medical [place] A [address] [facility] [address] [address] Melani Franklin DO [address] [facility] [address] [place] [address] documented as of this encounter Visit Diagnoses Diagnosis Insomnia, unspecified type documented in this encounter Care Teams Medical Clerk Relationship Specialty Start Date End Date Melani Franklin DO [address] [facility] [address] [place], [place] [phone] PCP - General Internal Medicine 01/02/17 documented as of this encounter
--- OUTSIDE RECORDS SUMMARY | 2024-02-21 16:31 | XMS_ITS | Encounter Summary ---
Author Organization [facility] Address [address] [place] [address] Care Team Providers Care Catalogue Librarian Name Role Phone Melani Franklin DO Primary Care Provider [phone] Encounter Details Date Type Department Care Team (Late Contact Info) Description 07/06/2022 Telephone [facility] Internal Medicine [facility] [address] [place] [address] Melani Franklin DO [address] [address] Social History Tobacco Use Types Packs/Day [...] CDT Office Visit [facility] Internal Medicine [facility] [address] [facility] [address] [place] [address] Melani Franklin DO [address] [facility] [address] [place] [address] documented as of this encounter Visit Diagnoses Not on filedocumented in this encounter Care Teams Catalogue Librarian Relationship Specialty Start Date End Date Melani Franklin DO [address] [facility] [address] [place], [place] [phone] PCP - General Internal Medicine 01/02/17 documented as of this encounter
--- OUTSIDE RECORDS SUMMARY | 2024-02-21 16:31 | XMS_ITS | Encounter Summary ---
Author Organization [facility] Address [address] [place] [address] Care Team Providers Care Integration Specialist Name Role Phone Melani Franklin DO Primary Care Provider [phone] Reason for Visit * Eval and Treat (Routine) - Closed Specialty Diagnoses / Procedures Referred By Contac t Referred To Contact Physical Therapy Diagnoses Neck pain, bilateral Procedures PT EVAL AND TREAT Barbara Mauricio, MEHRAN NO ADDRESS ON FILE Jeanie Blanchard, Physical Therapist Referral ID Status Reason Start Date Expiration Date Visits Re quested Visits Authorized [id number] Closed 01/04/2022 02/04/2023 99 99 Encounter Details Date Type Department Care Team (Late st Contact Info) Description 06/07/2022 10:00 AM CDT - 06/07/2022 11:59 PM CDT Hospital Encounter [facility] Services Kristin [address] [address] [place] [id number] Barbara Mauricio, MEHRAN NO ADDRESS ON FILE Essie Mary, Physical Therapist Neck pain, bilateral Discharge Disposition: Home or Self Care Social [...] 06/16/2020 09/13/2022 documented as of this encounter Miscellaneous Notes * Therapy Discharge - Essie Mary, Physical Therapist - 06/07/2022 10:00 AM CDT Images from the original note were not included. Physical Therapy Discharge Summary Patient: Jody Mason Date: 06/07/2022 Date of : 1970 Referring Provider: Barbara Graham, * Diagnosis: M54.2 (ICD-10-CM) - 723.1 (ICD-9-CM) - Neck pain, bilateral Reason for Therapy: neck pain Precautions: None per prescription Fall Risk: no Next MD Appointment: PRN PN Due: 05/08/2022 Script Visits: 05/06 by 05/31/2022 Insurance Visits: 11 visits used/medical necessity approved by [facility] by 03/04/2023 Authorization: NA Summary List: Unchanged Time In: 10:06 am Time Out: 10:35 am Total Timed Treatment: 27 minutes Total Treatment Time: 27 minutes Jody Mason has been seen for 01/13 visits from 03/15/2022 to 06/07/2022 with 4 cancellations and 0 no shows. Treatments consisted of: functional mobility, home exercise program, joint mobilization, manual therapy, patient/family education, plan of care, posture/body mechanics instruction, range of motion, safety, stretching, and strengthening therapeutic exercises Therapeutic Exercise to increase strength, ROM, flexibility, stablization. Manual Treatments - soft/deep tissue massage, joint mobilization Modalities - Therapist Discretion and Ultrasound SUBJECTIVE Pt reports she has noticed she doesn't have any pain with rotating her head but side bending is still bothering her. She is going to get injections in her neck for pain. Functional Progress: less pain overall, can stand without irritation, can sleep without irritation,working at the computer is less irritating with breaks to stretch neck, less pain with driving, cansit for ~1-1.5 hours before needing a break, can dress without neck pain Remaining Functional Limitations: sitting to read Pain: Best - 1/10 Worst - 5-6/10 Currently - 06/12 Description/Location/Frequency/Duration: neck: sharp, burning, tight from base of skull to shoulderblade Alleviating Factors: stretching, resting Aggravating Factors: looking over shoulder while driving, sleeping, dressing, prolonged sitting, working at computer, sitting to read OBJECTIVE Functional Outcomes: Neck Disability Index Score 32 % Disability (04/10/22 1021) Neck Disability Index Score 28 % Disability (05/03/22 1039) Neck Disability Index Score 20 % Disability (06/07/22 1049) Appearance: Pt is a pleasant 52 yo female who is motivated to participate in therapy. Posture: pt had increased muscle tension/bulk in B upper trapezius, L>R. She had to adjust sitting posture multiple times to get comfortable. Gait: unremarkable Cervical ROM Comments Flexion 39?? Extension 40?? Right Left Side Bending 26 (was: 16) 23 (was: 20?? Rotation 58 (was: 56?? 58 (was: 53?? Strength Right Left Comments Shoulder Flexion 5/5 (was: 5-/5 5-/5 (same) Shoulder Abduction 5/5 5/5 Shoulder Internal Rotation 5/5 5/5 Shoulder External Rotation 5/5 5/5 Middle Trapezius NT/5 NT/5 Lower Trapezius NT/5 NT/5 Flexibility: Pectoralis minor - (R) moderately limited, (L) moderately limited. Manual Exam: pt had increased tension in B upper trapezius. Special Tests: none this date Treatment Today: Reassessment in bold above Review HEP verbally Straight arm pull down with purple band x10 Seated B shoulder external rotation with blue band x10 Final Home Exercise Program - continue present program and advanced in bold above Tesfaye santacruzckliliya Upper trapezius stretch Levator stretch Scapular retraction Straight arm pull down with blue band Seated B shoulder external rotation with green band Seated shoulder flexion and scaption with 2# weight x10 each UE, each direction Prone shoulder abduction and extension x10 each direction Patient verbalized understanding, demonstrated understanding, and teach-back of HEP. ASSESSMENT Pain Level Post-Treatment: 05/12 Rehab Diagnosis: neck pain Rehabilitation Potential: Good with active participation of plan of care. Patient Problems: balance limitations, coordination limitations, ROM limitations, strength limitations, pain, impaired mobility, ADL limitations, muscle guarding, knowledge deficit?? Impression: Since starting therapy, pt has noticed that she has less overall pain, she can sit longer without irritation, can drive and dress without irritation, and she can sit at her computer and read longer without irritation (up to 1.5 hours) and stretches help to reduce irritation. Pt reports that she still has difficulty tolerating prolonged sitting to read. Although pt has made improvements in cervical rotation and R side bending ROM and B UE strength, she continues to lack complete L cervical side bending ROM and L shoulder flexion strength to complete functional movements. Pt has demonstrated improve NDI disability score from 28 to 20 which shows improvements in symptoms and functio nal mobility. Pt is independent with HEP and motivated to make remaining strength and ROM gains with final HEP. Goals: The following goals were developed in conjunction with the patient. STG's (Time Frame: 2 weeks)To be met by date: 03/29/2022 Pt will demonstrate proper technique with HEP to augment effects of clinical interventions. MET 03/29 2. Pt will report worst neck pain with ADLs/IADLs = <4/10 NOT MET LTG's (Time Frame: 4 weeks)To be met by date: 04/12/2022 1. Pt will be independent with HEP to enable pt to manage symptoms once therapy sessions have been completed. MET / 2. Pt will report worst neck pain with ADLs/IADLs = <2/10. NOT MET 3. Pt will report reduced disability score on NDI with score of <15 NOT MET 4. Pt will demonstrate improved B UE strength with MMT improved by 1/3 grade to increase pt's tolerance to lifting objects MET 4/5 5. Pt will demonstrate improved cervical ROM to improve ability to turn head while driving MET 4/5 Recommendations: DC to final HEP PLAN DC to final HEP Please contact me If you have any questions concerning the content of this note. Thank you for this referral. Essie Mary DPT Physical Therapist License #: [id number] [facility] [place] [address] Phone: [phone] Fax: [phone] documented in this encounter Plan of Treatment Upcoming Encounters Date Type Department Care Team (Late st Contact Info) Description 11/24/2024 9:30 AM CDT Office Visit [facility] Internal Medicine Medical [place] A [address] [facility] [address] [address] Melani Franklin DO [address] [facility] [address] [place], [place] [phone] documented as of this encounter Visit Diagnoses Not on filedocumented in this encounter Care Teams Integration Specialist Relationship Specialty Start Date End Date Melani Franklin DO [address] [facility] [address] [place], [place] [phone] PCP - General Internal Medicine 01/02/17 documented as of this encounter
--- OUTSIDE RECORDS SUMMARY | 2024-02-21 16:32 | XMS_ITS | Encounter Summary ---
Author Organization [facility] [facility] Address [address] [place] [address] Care Team Providers Care Restaurant Crew Person Name Role Phone Melani Franklin DO Primary Care Provider [phone] Reason for Visit * Eval and Treat (Routine) - Closed Specialty Diagnoses / Procedures Referred By Contac t Referred To Contact Physical Therapy Diagnoses Neck pain, bilateral Procedures PT EVAL AND TREAT Barbara Mauricio, MEHRAN NO ADDRESS ON FILE Jeanie Blanchard, Physical Therapist Referral ID Status Reason Start Date Expiration Date Visits Re quested Visits Authorized [id number] Closed 01/04/2022 02/04/2023 99 99 Encounter Details Date Type Department Care Team (Late st Contact Info) Description 05/17/2022 8:54 AM CDT - 05/17/2022 11:59 PM CDT Hospital Encounter [facility] Services Kristin Morrell [address] [place] [phone] Barbara Mauricio, MEHRAN NO ADDRESS ON FILE [...] suspected to have Coronavirus/COVID-19? No / Unsure 05/17/2022 8:53 AM CDT documented as of this encounter [...] of this encounter Miscellaneous Notes * Therapy Treatment - Essie Mary, Physical Therapist - 05/17/2022 9:00 AM CDT Images from the original note were not included. Physical Therapy Daily Documentation Patient: Jody Mason Date: 05/17/2022 Date of : 1970 Referring Provider: Barbara Graham, * Diagnosis: M54.2 (ICD-10-CM) - 723.1 (ICD-9-CM) - Neck pain, bilateral Reason for Therapy: neck pain Precautions: None per prescription Fall Risk: no Next MD Appointment: 05/10/2022-pain management PN Due: 05/31/2022 Script Visits: 04/08 by 05/31/2022 Insurance Visits: 10 visits used/medical necessity approved by [facility] by 03/04/2023 Authorization: NA Summary List: Unchanged Time In: 9:01 am Time Out: 9:30 am Total Timed Treatment: 27 minutes Total Treatment Time: 27 minutes SUBJECTIVE Pain Level Pre-Treatment: 04/14 Pt reports she still has stiffness with bending her head side to side. OBJECTIVE Therapeutic Exercise: Review HEP verbally Home Exercise Program - continue present program Chin tucks Upper trapezius stretch Levator stretch Scapular retraction Straight arm pull down with blue band Seated B shoulder external rotation with green band Seated shoulder flexion and scaption with 2# weight x10 each UE, each direction Prone shoulder abduction and extension x10 each direction Patient verbalized understanding, demonstrated understanding, and teach-back of HEP. Manual Therapy: With pt in supine: manual cervical traction; unilateral PA's and side glides to cervical spine grade II/III, STM to sub-occipitals and B upper trapezius Gait Training: na Therapeutic/Functional Activities: na Neuromuscular Re-education/Balance Training: na Modalities to Address: none this date Objective Measures: none this date ASSESSMENT Pain Level Post-Treatment: 04/14 Impression: Pt tolerated treatment without adverse reaction. Pt had increased AROM visually following manual therapy. She had increased tissue tension in R upper trapezius and reduced mobility with side glides which improved with mobilizations. Pt would benefit from continued skilled therapy to increase UE strength and cervical ROM to improve functional mobility. Goals: The following goals were developed in conjunction with the patient. STG's (Time Frame: 2 weeks)To be met by date: 03/29/2022 Pt will demonstrate proper technique with HEP to augment effects of clinical interventions. MET 03/29 2. Pt will report worst neck pain with ADLs/IADLs = <4/10 ONGOING LTG's (Time Frame: 4 weeks)To be met by date: 04/12/2022 1. Pt will be independent with HEP to enable pt to manage symptoms once therapy sessions have been completed. 2. Pt will report worst neck pain with ADLs/IADLs = <2/10. 3. Pt will report reduced disability score on NDI with score of <15 4. Pt will demonstrate improved B UE strength with MMT improved by 1/3 grade to increase pt's tolerance to lifting objects 5. Pt will demonstrate improved cervical ROM to improve ability to turn head while driving PLAN Continue skilled therapy for 2 times per week for 4 weeks for the following skilled therapeutic interventions to address limitations in ADL's and function: HEP Instruction, Strengthening, Flexibility, Manual Therapy, Core Stabilization, Posture/Body Mechanics Education, Mechanical Traction, Modalities Essie Mary DPT Physical Therapist License #: [id number] [address] [address] Phone: [phone] Fax: [phone] documented in this encounter Plan of Treatment Upcoming Encounters Date Type Department Care Team (Late st Contact Info) Description 11/24/2024 9:30 AM CDT Office Visit [facility] Internal Medicine Medical [place] A [place] [address] [facility] [address] [address] Melani Franklin, DO [address] [facility] [address] [place] [address] documented as of this encounter Visit Diagnoses Not on filedocumented in this encounter Care Teams Restaurant Crew Person Relationship Specialty Start Date End Date Melani Franklin DO [address] [facility] [address] [place] [address] PCP - General Internal Medicine 01/02/17 documented as of this encounter
--- OUTSIDE RECORDS SUMMARY | 2024-02-21 16:33 | XMS_ITS | Encounter Summary ---
Author Organization [facility] Address [address] [place] [address] Care Team Providers Care Twister Tender Paper Name Role Phone Melani Franklin DO Primary Care Provider [phone] Reason for Visit * Reason Comments Med Refill Encounter Details Date Type Department Care Team (Late st Contact Info) Description 05/03/2022 Refill [facility] Internal Medicine Medical [facility] [address] [facility] [address] [address] Barbara Mauricio, MEHRAN NO ADDRESS ON FILE Neck pain, bilateral Social History Tobacco Use Types Packs/Day Years [...] suspected to have Coronavirus/COVID-19? No / Unsure 05/03/2022 8:57 AM CASHIER ASSISTANT documented as of this encounter Miscellaneous Notes * Telephone Encounter - Kayla Meyers - 05/03/2022 10:40 AM CST Pt calling asking for refill of cyclobenzaprine for neck pain IER ASSISTANT documented in this encounter Plan of Treatment Upcoming Encounters Date Type Department Care Team (Late st Contact Info) Description 11/24/2024 9:30 AM CDT Office Visit [facility] Internal Medicine Medical [place] A [facility] [address] [facility] [address] [address] Melani Franklin DO [address] [facility] [address] [place] [address] documented as of this encounter Visit Diagnoses Diagnosis Neck pain, bilateral Cervicalgia documented in this encounter Care Teams Twister Tender Paper Relationship Specialty Start Date End Date Melani Franklin DO [address] [facility] [address] [place], [place] [id number] PCP - General Internal Medicine 01/02/17 documented as of this encounter
--- OUTSIDE RECORDS SUMMARY | 2024-02-21 16:33 | XMS_ITS | Encounter Summary ---
Author Organization [facility] Address [address] [place] [address] Care Team Providers Care Commercial Attorney Name Role Phone Melani Franklin DO Primary Care Provider [phone] Reason for Visit * Reason Onset Date Comments Med Refill EMG Nerve Study 04/19/2022 Encounter Details Date Type Department Care Team (Late st Contact Info) Description 04/19/2022 Refill [facility] Internal Medicine Medical [place] A [facility] [address] [facility] [address] [address] Melani Franklin, [address] [facility] [address] [place] [address] Social History Tobacco Use Types [...] suspected to have Coronavirus/COVID-19? No / Unsure 04/19/2022 8:58 AM CUSTOMER SERVICE AND SALES CONSULTANT documented as of this encounter Miscellaneous Notes * Telephone Encounter - Maty Calderon - 04/19/2022 12:03 PM CST Called and informed patient of EMG Nerve Study Results, also informed her that an order was placed for an MRI for further evaluation of the Neck, to expect a call from Central Scheduling. Patient understood OMER SERVICE AND SALES CONSULTANT * Telephone Encounter - Maty Calderon - 04/19/2022 12:02 PM CST ----- Message from Barbara Graham NP sent at 04/19/2022 11:04 AM CUSTOMER SERVICE AND SALES CONSULTANT ----- Please call patient and let her know Dr Franklin and I have bother reviewed her EMG nerve study. Study shows right carpal tunnel syndrome And abnormal nerve flow to Tricep muscles, which could indicate possible nerve impingement in her neck. Will need a MRI of her neck for further evaluation. Central Referral Scheduling will be contacting you by phone to schedule your follow up visit with [facility]. If you have not received a call within one business day, please call [phone] or , Sunday through Sunday between 8 a.m. and 5 p.m. To schedule your appointment. OMER SERVICE AND SALES CONSULTANT * Telephone Encounter - Elle Madrid - 04/19/2022 10:35 AM CST LR: 01/19/22 Recent Visits Date Type Provider Dept 01/04/22 Office Visit Barbara Graham NP [facility] Int Med [place] 189 10/12/21 Office Visit Melani Franklin DO [facility] Int Med [place] 189 06/08/21 Office Visit Michelle Temple NP [facility] Int Med [place] 189 11/05/20 Video Visit Felicia Arevalo FNP [facility] Int Med [place] 189 Showing recent visits within past 540 days with a meds authorizing provider and meeting all other requirements Future Appointments No visits were found meeting these conditions. Showing future appointments within next 150 days with a meds authorizing provider and meeting all other requirements OMER SERVICE AND SALES CONSULTANT documented in this encounter Plan of Treatment Upcoming Encounters Date Type Department Care Team (Late st Contact Info) Description 11/24/2024 9:30 AM CDT Office Visit [facility] Internal Medicine Medical [place] A [facility] [address] [facility] [address] [facility] [address] [address] Melani Franklin DO [address] [facility] [address] [place], [place] [phone] documented as of this encounter Visit Diagnoses Not on filedocumented in this encounter Care Teams Commercial Attorney Relationship Specialty Start Date End Date Melani Franklin DO [address] [facility] [address] [place] [address] PCP - General Internal Medicine 01/02/17 documented as of this encounter
--- OUTSIDE RECORDS SUMMARY | 2024-02-21 16:33 | XMS_ITS | Encounter Summary ---
Author Organization [facility] Address [address] [place] [address] Care Team Providers Care Sole Blacker Name Role Phone Melani Franklin DO Primary Care Provider [phone] Reason for Visit * Eval and Treat (Routine) - Closed Specialty Diagnoses / Procedures Referred By Contac t Referred To Contact Physical Therapy Diagnoses Neck pain, bilateral Procedures PT EVAL AND TREAT Barbara Maruicio, MEHRAN NO ADDRESS ON FILE Jeanie Blanchard Physical Therapist Referral ID Status Reason Start Date Expiration Date Visits Re quested Visits Authorized [id number] Closed 01/04/2022 02/04/2023 99 99 Encounter Details Date Type Department Care Team (Latest Contact Info) Description 04/19/2022 8:59 AM FIRESTOPPER INSTALLER - 04/19/2022 11:59 PM FIRESTOPPER INSTALLER Hospital Encounter [facility] Services Kristin Morrell [address] [place] [address] Barbara Mauricio NP NO ADDRESS ON FILE Neck pain, bilateral Discharge Disposition: Home or [...] Coronavirus/COVID-19? No / Unsure 04/19/2022 8:58 AM FIRESTOPPER INSTALLER documented as of this encounter Medications at [...] MOUTH DAILY 90 Tablet 3 01/09/2022 10/15/2022 cyclobenzaprine (FLEXERIL) 10 mg tabletIndications:Neck pain, bilateral Take 1 Tablet (10 mg) by mouth 3 times daily as needed for Spasm. 30 Tablet 01/04/2022 05/03/2022 zolpidem (AMBIEN) 5 mg tabletIndications:Insom adis, unspecified [...] Treatment - Essie Mary, Physical Therapist - 04/19/2022 9:00 AM CST Images from the original note were not included. Physical Therapy Daily Documentation Patient: Jody Mason Date: 04/19/2022 Date of : 1970 Referring Provider: Barbara Graham, * Diagnosis: M54.2 (ICD-10-CM) - 723.1 (ICD-9-CM) - Neck pain, bilateral Reason for Therapy: neck pain Precautions: None per prescription Fall Risk: no Next MD Appointment: PRN PN Due: 05/08/2022 Script Visits: 03/08 by 05/08/2022 Insurance Visits: 6 visits used/medical necessity approved by [facility] by 03/04/2023 Authorization: NA Summary List: Unchanged Time In: 9:03 am Time Out: 9:30 am Total Timed Treatment: 25 minutes Total Treatment Time: 25 minutes SUBJECTIVE Pain Level Pre-Treatment: 06/12 Pt reports she went skiing over the weekend and her neck was fine skiing but was irritated with thedrive. OBJECTIVE Therapeutic Exercise: Review HEP verbally Prone shoulder abduction and extension x10 each direction Home Exercise Program - continue present program Chin tucks Upper trapezius stretch Levator stretch Scapular retraction Straight arm pull down with blue band Seated B shoulder external rotation with green band Seated shoulder flexion and scaption with 2# weight x10 each UE, each direction Patient verbalized understanding, demonstrated understanding, and teach-back of HEP. Manual Therapy: with pt in prone: STM to upper trapezius, paraspinals, rhomboids, and levator; central and unilateral PA's to thoracic and cervical spine grade II/III Gait Training: na Therapeutic/Functional Activities: na Neuromuscular Re-education/Balance Training: na Modalities to Address: none this date Objective Measures: none this date ASSESSMENT Pain Level Post-Treatment: 05/12 Impression: Pt tolerated treatment without adverse reaction. Pt had reduction of symptoms followingmanual therapy. She continues to have increased tissue tension at C-T junction which reduces with STM. Pt would benefit from continued skilled therapy [...] Essie Mary DPT Physical Therapist License #: [id number] [address] [address] Phone: [phone] Fax: [phone] STOPPER INSTALLER documented in this encounter Plan of Treatment Upcoming Encounters Date Type Department Care Team (Late st Contact Info) Description 11/24/2024 9:30 AM CDT Office Visit [facility] Internal Medicine Medical [place] A [facility] [address] [facility] [address] [address] Melani Franklin DO [address] [facility] [address] [place] [address] documented as of this encounter Visit Diagnoses Not on filedocumented in this encounter Care Teams Sole Blacker Relationship Specialty Start Date End Date Melani Franklin DO [address] [facility] [address] [place] [address] PCP - General Internal Medicine 01/02/17 documented as of this encounter
--- OUTSIDE RECORDS SUMMARY | 2024-02-21 16:33 | XMS_ITS | Encounter Summary ---
Author Organization [facility] Address [address] [facility] Attn: [place] [address] Care Team Providers Care Senior Administrative Associate Name Role Phone Melani Franklin DO Primary Care Provider [phone] Encounter Details Date Type Department Care Team (Latest Contact Info) Description 04/24/2022 Travel Social History Tobacco Use Types Packs/Day [...] suspected to have Coronavirus/COVID-19? No / Unsure 04/24/2022 7:35 PM BUYERS' AGENT documented as of this encounter Plan of Treatment Upcoming Encounters Date Type Department Care Team (Late st Contact Info) Description 11/24/2024 9:30 AM CDT Office Visit [facility] Internal Medicine Medical [place] A [place] [address] [facility] [address] [address] Melani Franklin DO [address] [facility] [address] [place] [address] documented as of this encounter Visit Diagnoses Not on filedocumented in this encounter Care Teams Senior Administrative Associate Relationship Specialty Start Date End Date Melani Franklin DO [address] [facility] [address] [place] [address] PCP - General Internal Medicine 01/02/17 documented as of this encounter
--- OUTSIDE RECORDS SUMMARY | 2024-02-21 16:33 | XMS_ITS | Encounter Summary ---
Author Organization [facility] Address [address] [place] [address] Care Team Providers Care Policy Manager Name Role Phone Melani Franklin DO Primary Care Provider [phone] Reason for Visit * Eval and Treat (Routine) - Closed Specialty Diagnoses / Procedures Referred By Contac t Referred To Contact Physical Therapy Diagnoses Neck pain, bilateral Procedures PT EVAL AND TREAT Barbara Mauricio, MEHRAN NO ADDRESS ON FILE Jeanie Blanchard, Physical Therapist Referral ID Status Reason Start Date Expiration Date Visits Re quested Visits Authorized [id number] Closed 01/04/2022 02/04/2023 99 99 Encounter Details Date Type Department Care Team (Late st Contact Info) Description 05/03/2022 8:58 AM CAUSTIC STRENGTH INSPECTOR - 05/03/2022 11:59 PM [facility] Hospital Encounter [facility] Services Kristin Morrell [address] [place] [phone] Barbara Mauricio NP NO ADDRESS ON FILE Essie Mary Physical Therapist Neck pain, bilateral Discharge Disposition: [...] Coronavirus/COVID-19? No / Unsure 05/03/2022 8:57 AM CAUSTIC STRENGTH INSPECTOR documented as of this encounter Medications at [...] of this encounter Miscellaneous Notes * Therapy Progress Note - Essie Mary, Physical Therapist - 05/03/2022 9:00 AM CST Images from the original note were not included. Physical Therapy Progress Note Patient: Jody Mason Date: 05/03/2022 Date of : 1970 Referring Provider: Barbara Graham, * Diagnosis: M54.2 (ICD-10-CM) - 723.1 (ICD-9-CM) - Neck pain, bilateral Reason for Therapy: neck pain Precautions: None per prescription Fall Risk: no Next MD Appointment: PRN PN Due: 05/08/2022 Script Visits: 05/06 by 05/08/2022 Please co-sign for extended PT POC Insurance Visits: 8 visits used/medical necessity approved by [facility] by 03/04/2023 Authorization: NA Summary List: Unchanged Time In: 9:02 am Time Out: 9:31 am Total Timed Treatment: 27 minutes Total Treatment Time: 27 minutes Jody Mason has been seen for 8/8 visits from 03/15/2022 to 05/03/2022 with 3 cancellations and0 no shows. Treatments consisted of: functional mobility, home exercise program, joint mobilization, manual therapy, patient/family education, plan of care, posture/body mechanics instruction, range of motion, safety, stretching, and strengthening therapeutic exercises Therapeutic Exercise to increase strength, ROM, flexibility, stablization. Manual Treatments - soft/deep tissue massage, joint mobilization Modalities - Therapist Discretion and Ultrasound SUBJECTIVE Pt reports she has noticed she can turn her head more but still has difficulties bending her head to the side. Functional Progress: less pain overall, can stand without irritation, can sleep without irritation,working at the computer is less irritating with breaks to stretch neck, less pain with driving, cansit for ~30mins before needing a break Remaining Functional Limitations: looking over shoulder while driving, dressing, prolonged sitting (>30mins), working at computer, sitting to read Pain: Best - 1/10 Worst - 5-6/10 Currently - 05/12 Description/Location/Frequency/Duration: neck: sharp, burning, tight from base of skull to shoulderblade Alleviating Factors: stretching, resting Aggravating Factors: looking over shoulder while driving, sleeping, dressing, prolonged sitting, working at computer, sitting to read OBJECTIVE Functional Outcomes: Neck Disability Index Score 30 % Disability (03/15/22 1219) Neck Disability Index Score 32 % Disability (04/10/22 1021) Neck Disability Index Score 28 % Disability (05/03/22 1039) Appearance: Pt is a pleasant 52 yo female who is motivated to participate in therapy. Posture: pt had increased muscle tension/bulk in B upper trapezius, L>R. She had to adjust sitting posture multiple times to get comfortable. Gait: unremarkable Cervical ROM Comments Flexion 39?? Extension 40?? Right Left Side Bending 16 (same) 17 (was: 20?? Rotation 56 (was: 43?? 53 (was: 51?? Strength Right Left Comments Shoulder Flexion 5-/5 (was: 4+/5) 5-/5 (same) Shoulder Abduction 5/5 (was: 5-/5 5/5 Shoulder Internal Rotation 5/5 5/5 Shoulder External Rotation 5/5 5/5 Middle Trapezius NT/5 NT/5 Lower Trapezius NT/5 NT/5 Flexibility: Pectoralis minor - (R) moderately limited, (L) moderately limited. Manual Exam: pt had increased tension in B upper trapezius. Special Tests: none this date Treatment Today: Reassessment in bold above Review HEP verbally Home Exercise Program - continue present program Tesfaye lopez Upper trapezius stretch Levator stretch Scapular retraction [...] pain, she can sit longer without irritation, and she can sit at her computer longer without irritation and stretches help to reduce irritation. Pt reports that she still has difficulty turning head while driving, dressing,and tolerating prolonged sitting to read or work on computer (>30mins). Although pt has made improvements in cervical rotation and R side bending ROM and B UE strength, she continues to lack complete cervical side bending ROM and B shoulder flexion strength to complete functional movements. Pt has demonstrated improve NDI disability score from 32 to 28 which shows improvements in symptoms and functional mobility. Pt would benefit from continued skilled therapy to address the above limitations. Goals: The following goals were developed in [...] symptoms once therapy sessions have been completed. ONGOING 2. Pt will report worst neck pain with ADLs/IADLs = <2/10. ONGOING 3. Pt will report reduced disability score on NDI with score of <15 PROGRESSING 4. Pt will demonstrate improved B UE strength with MMT improved by 1/3 grade to increase pt's tolerance to lifting objects PROGRESSING 5. Pt will demonstrate improved cervical ROM to improve ability to turn head while driving PROGRESSING Recommendations: continue PT for 1x/week for 4 more weeks; compliance with HEP PLAN Continue skilled therapy for 1 times per week for 4 MORE weeks for the following skilled therapeutic interventions to address limitations in ADL's and function: HEP Instruction, Strengthening, Flexibility, Manual Therapy, Core Stabilization, Posture/Body Mechanics Education, Mechanical Traction, Modalities Please contact me If you have any questions concerning the content of this note. Thank you for this referral. Essie Mary DPT Physical Therapist License #: [id number] [facility] [place] [address] Phone: [phone] Fax: [phone] TIC STRENGTH INSPECTOR documented in this encounter Plan of Treatment Upcoming Encounters Date Type Department Care Team (Late st Contact Info) Description 11/24/2024 9:30 AM CDT Office Visit [facility] Internal Medicine Medical [place] A [place]ANE [address] [facility] [address] [address] Melani Franklin DO [address] [facility] [address] [place], [place] [phone] documented as of this encounter Visit Diagnoses Not on filedocumented in this encounter Care Teams Policy Manager Relationship Specialty Start Date End Date Melani Franklin DO [address] [facility] [address] [place] [address] PCP - General Internal Medicine 01/02/17 documented as of this encounter
--- OUTSIDE RECORDS SUMMARY | 2024-02-21 16:33 | XMS_ITS | Encounter Summary ---
Author Organization [facility] Address [address] Attn: [place] [id number] Care Team Providers Care Reptile Keeper Name Role Phone Melani Franklin DO Primary Care Provider Encounter Details Date Type Department Care Team (Latest Contact Info) Description 04/27/2022 Travel Social History Tobacco Use Types Packs/Day [...] suspected to have Coronavirus/COVID-19? No / Unsure 04/27/2022 2:12 PM MAINTAINER PLANT documented as of this encounter Plan of Treatment Upcoming Encounters Date Type Department Care Team (Late st Contact Info) Description 11/24/2024 9:30 AM CDT Office Visit [facility] Internal Medicine Medical [place] [address] [facility] [address] [address] Melani Franklin DO [address] [facility] [address] [place] [address] documented as of this encounter Visit Diagnoses Not on filedocumented in this encounter Care Teams Reptile Keeper Relationship Specialty Start Date End Date Melani Franklin DO [address] [facility] [address] [place] [address] PCP - General Internal Medicine 01/02/17 documented as of this encounter
--- OUTSIDE RECORDS SUMMARY | 2024-02-21 16:33 | XMS_ITS | Encounter Summary ---
Author Organization [facility] Address [address] [facility] Attn: [place] [id number] Care Team Providers Care Asset Protection Associate Name Role Phone Melani Franklin DO Primary Care Provider [phone] Encounter Details Date Type Department Care Team (Latest Contact Info) Description 04/26/2022 Travel Social History Tobacco Use Types Packs/Day [...] suspected to have Coronavirus/COVID-19? No / Unsure 04/26/2022 8:55 AM REFRIGERATING MACHINE OPERATOR documented as of this encounter Plan of Treatment Upcoming Encounters Date Type Department Care Team (Late st Contact Info) Description 11/24/2024 9:30 AM CDT Office Visit [facility] Internal Medicine Medical [place] A [place] [address] [facility] [address] [address] Melani Franklin DO [address] [facility] [address] [place] [address] documented as of this encounter Visit Diagnoses Not on filedocumented in this encounter Care Teams Asset Protection Associate Relationship Specialty Start Date End Date Melani Franklin DO [address] [facility] [address] [place] [address] PCP - General Internal Medicine 01/02/17 documented as of this encounter
--- OUTSIDE RECORDS SUMMARY | 2024-02-21 16:33 | XMS_ITS | Encounter Summary ---
Author Organization [facility] Address [address] [place] [address] Care Team Providers Care Casualty Underwriter Name Role Phone Melani Franklin DO Primary Care Provider [phone] Reason for Referral * MRI (Routine) - Closed Specialty Diagnoses / Procedures Referred By Tyrone baxter Referred To Contact Radiology Diagnoses Neck pain, bilateral Procedures MRI CERVICAL W WO CONTRAST Barbara Mauricio NP NO ADDRESS ON FILE [facility] Mri [place] [address] [facility] [address] [place] [address] Referral ID Status Reason Start Date Expiration Date Visits Re quested Visits Authorized [id number] Closed 04/24/2022 06/08/2022 1 1 R WORKER Encounter Details Date Type Department Care Team (Late st Contact Info) Description 04/19/2022 Orders Only [facility] Internal Medicine Medical [place] A [facility] [address] [facility] [address] [address] Barbara Mauricio NP NO ADDRESS ON FILE Neck pain, bilateral (Primary Dx) Social History Tobacco Use Types [...] Coronavirus/COVID-19? No / Unsure 04/19/2022 8:58 AM ORDER WORKER documented as of this encounter Progress Notes * Barbara Graham NP - 04/19/2022 11:05 AM CST MRI of neck ordered. R WORKER documented in this encounter Plan of Treatment Upcoming Encounters Date Type Department Care Team (Late st Contact Info) Description 11/24/2024 9:30 AM CDT Office Visit [facility] Internal Medicine Medical [place] A [address] [facility] [address] [address] Melani Franklin, DO [address] [facility] [address] [place] [address] documented as of this encounter Results * MRI CERVICAL W WO CONTRAST (04/27/2022 4:04 PM ORDER WORKER) Anatomical Region Laterality Modality Spine Magnetic Resonan ce 04/27/2022 4:04 PM ORDER WORKER Impressions 04/27/2022 4:44 PM ORDER WORKER IMPRESSION: 1. Cervical degenerative disc and joint disease as described above, most pronounced at C5-6. DICTATION LOCATION: Location [facility] Narrative 04/27/2022 4:44 PM ORDER WORKER EXAMINATION: MRI CERVICAL W WO CONTRAST DATE: 04/27/2022 4:04 PM HISTORY: Abnormal Nerve COnduction Study; Neck pain, bilateral TECHNIQUE: MRI of the cervical spine was performed prior to and following the uneventful administration of contrast (GADOBENATE DIMEGLUMINE 529 MG/ML(0.1 MMOL/0.2 ML) INTRAVENOUS SOLUTION Given:13 mL) according to standard protocol. The images are somewhat degraded by patient motion artifact. COMPARISON: No prior study is available for comparison at the time of this dictation. ?? FINDINGS: The alignment is normal. Vertebral bodies are normal in height without evidence of compression fractures. There is Modic 1 endplate change and enhancement at C5-6. The craniocervical junction and visualized portions of the posterior fossa appear normal. The spinal cord appears normal. The intervertebral discs are normal in height. No soft tissue abnormality is identified. Normal flow voids are identified in the vertebral arteries. C2-3: There is no disc bulge. There is no spinal canal stenosis. There is moderate right facet osteoarthritis. There is no uncovertebral joint osteoarthritis. There is no neural foraminal stenosis. C3-4: There is no disc bulge. There is no spinal canal stenosis. There is mild facet osteoarthritis. There is no uncovertebral joint osteoarthritis. There is no neural foraminal stenosis. C4-5: There is mild disc bulge. There is no spinal canal stenosis. There is no facet osteoarthritis. There is mild uncovertebral joint osteoarthritis. There is mild neural foraminal stenosis. C5-6: There is diffuse disc bulge. There is mild spinal canal stenosis. There is no facet osteoarthritis. There is severe right and mild left uncovertebral joint osteoarthritis. There is severe right and mild left neural foraminal stenosis. C6-7: There is mild disc bulge. There is no spinal canal stenosis. There is no facet osteoarthritis. There is no uncovertebral joint osteoarthritis. There is no neural foraminal stenosis. C7-T1: There is mild disc bulge. There is no spinal canal stenosis. There is mild facet osteoarthritis. There is no uncovertebral joint osteoarthritis. There is no neural foraminal stenosis. Procedure Note Conor Landin MD - 04/27/2022 EXAMINATION: MRI CERVICAL W WO CONTRAST DATE: 04/27/2022 4:04 PM HISTORY: Abnormal Nerve COnduction Study; Neck pain, bilateral TECHNIQUE: MRI of the cervical spine was performed prior to and following the uneventful administration of contrast (GADOBENATE DIMEGLUMINE 529 MG/ML(0.1 MMOL/0.2 ML) INTRAVENOUS SOLUTION Given:13 mL) according to standard protocol. The images are somewhat degraded by patient motion artifact. COMPARISON: No prior study is available for comparison at the time of this dictation. FINDINGS: The alignment is normal. Vertebral bodies are normal in height without evidence of compression fractures. There is Modic 1 endplate change and enhancement at C5-6. The craniocervical junction and visualized portions of the posterior fossa appear normal. The spinal cord appears normal. The intervertebral discs are normal in height. No soft tissue abnormality is identified. Normal flow voids are identified in the vertebral arteries. C2-3: There is no disc bulge. There is no spinal canal stenosis. There is moderate right facet osteoarthritis. There is no uncovertebral joint osteoarthritis. There is no neural foraminal stenosis. C3-4: There is no disc bulge. There is no spinal canal stenosis. There is mild facet osteoarthritis. There is no uncovertebral joint osteoarthritis. There is no neural foraminal stenosis. C4-5: There is mild disc bulge. There is no spinal canal stenosis. There is no facet osteoarthritis. There is mild uncovertebral joint osteoarthritis. There is mild neural foraminal stenosis. C5-6: There is diffuse disc bulge. There is mild spinal canal stenosis. There is no facet osteoarthritis. There is severe right and mild left uncovertebral joint osteoarthritis. There is severe right and mild left neural foraminal stenosis. C6-7: There is mild disc bulge. There is no spinal canal stenosis. There is no facet osteoarthritis. There is no uncovertebral joint osteoarthritis. There is no neural foraminal stenosis. C7-T1: There is mild disc bulge. There is no spinal canal stenosis. There is mild facet osteoarthritis. There is no uncovertebral joint osteoarthritis. There is no neural foraminal stenosis. IMPRESSION: 1. Cervical degenerative disc and joint disease as described above, most pronounced at C5-6. DICTATION LOCATION: [address] Barbara Mauricio NP MR ORDERABLES documented in this encounter Visit Diagnoses Diagnosis Neck pain, bilateral- Primary Cervicalgia Neck pain, bilateral Cervicalgia documented in this encounter Care Teams Casualty Underwriter Relationship Specialty Start Date End Date Melani Franklin DO [address] [facility] [address] [place] [address] PCP - General Internal Medicine 01/02/17 documented as of this encounter
--- OUTSIDE RECORDS SUMMARY | 2024-02-21 16:33 | XMS_ITS | Encounter Summary ---
Author Organization [facility] Address [address] [place] [address] Care Team Providers Care Medicine Assistant Name Role Phone Melani Franklin DO Primary Care Provider [phone] Reason for Visit * Eval and Treat (Routine) - Closed Specialty Diagnoses / Procedures Referred By Contac t Referred To Contact Physical Therapy Diagnoses Neck pain, bilateral Procedures PT EVAL AND TREAT Barbara Mauricio, MEHRAN NO ADDRESS ON FILE Jeanie Blanchard Physical Therapist Referral ID Status Reason Start Date Expiration Date Visits Re quested Visits Authorized [id number] Closed 01/04/2022 02/04/2023 99 99 Encounter Details Date Type Department Care Team (Latest Contact Info) Description 04/26/2022 8:57 AM UNIVERSAL WINDING MACHINE OPERATOR - 04/26/2022 11:59 PM UNIVERSAL WINDING MACHINE OPERATOR Hospital Encounter [facility] Services Kristin Morrell [address] [place] [phone] Barbara Mauricio NP NO ADDRESS ON FILE [...] Coronavirus/COVID-19? No / Unsure 04/26/2022 8:55 AM UNIVERSAL WINDING MACHINE OPERATOR documented as of this encounter Medications at [...] Treatment - Essie Mary, Physical Therapist - 04/26/2022 9:00 AM CST Images from the original note were not included. Physical Therapy Daily Documentation Patient: Jody Mason Date: 04/26/2022 Date of : 1970 Referring Provider: Barbara Graham, * Diagnosis: M54.2 (ICD-10-CM) - 723.1 (ICD-9-CM) - Neck pain, bilateral Reason for Therapy: neck pain Precautions: None per prescription Fall Risk: no Next MD Appointment: PRN PN Due: 05/08/2022 Script Visits: 04/08 by 05/08/2022 Insurance Visits: 7 visits used/medical necessity approved by [facility] by 03/04/2023 Authorization: NA Summary List: Unchanged Time In: 9:03 am Time Out: 9:30 am Total Timed Treatment: 25 minutes Total Treatment Time: 25 minutes SUBJECTIVE Pain Level Pre-Treatment: 07/12 Pt reports her neck is more stiff today due to stress at work. OBJECTIVE Therapeutic Exercise: Review HEP verbally Home [...] of HEP. Manual Therapy: With pt in prone: STM to upper trapezius, paraspinals, rhomboids, and levator; central and unilateral PA's to thoracic grade II/III With pt in supine: manual cervical traction; unilateral PA's to cervical spine grade II/III, STM tosub-occipitals and B upper trapezius Gait Training: na Therapeutic/Functional Activities: na Neuromuscular Re-education/Balance Training: na Modalities to Address: none this date Objective Measures: none this date ASSESSMENT Pain Level Post-Treatment: -06/12 Impression: Pt tolerated treatment without adverse reaction. Pt had reduction of symptoms followingmanual therapy. She had increased tissue tension in B upper trapezius, sub-occipitals, and levator which reduced with STM. Pt would benefit from continued [...] Essie Mary DPT Physical Therapist License #: [id number] [address] [address] Phone: [phone] Fax: [phone] ERSAL WINDING MACHINE OPERATOR documented in this encounter Plan of Treatment Upcoming Encounters Date Type Department Care Team (Late st Contact Info) Description 11/24/2024 9:30 AM CDT [facility] Visit [facility] Internal Medicine Medical [place] A [address] [facility] [address] [address] Melani Franklin, DO [address] [facility] [address] [place] [address] documented as of this encounter Visit Diagnoses Not on filedocumented in this encounter Care Teams Medicine Assistant Relationship Specialty Start Date End Date Melani Franklin DO [address] [facility] [address] [place] [address] PCP - General Internal Medicine 01/02/17 documented as of this encounter
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
--- OUTSIDE RECORDS SUMMARY | 2024-02-21 16:33 | XMS_ITS | Encounter Summary ---
Author Organization [facility] Address [address] [facility] Attn: [place] [address] Care Team Providers Care Biochemistry Teacher Name Role Phone Melani Franklin DO Primary Care Provider [phone] Encounter Details Date Type Department Care Team (Latest Contact Info) Description 05/03/2022 Travel Social History Tobacco Use Types Packs/Day [...] Coronavirus/COVID-19? No / Unsure 05/03/2022 8:57 AM GRAVITY PROSPECTING OPERATOR HELPER documented as of this encounter Plan of Treatment Upcoming Encounters Date Type Department Care Team (Late st Contact Info) Description 11/24/2024 9:30 AM CDT Office Visit [facility] Internal Medicine Medical [place] A [address] [facility] [address] [address] Melani Franklin DO [address] [facility] [address] [place] [address] documented as of this encounter Visit Diagnoses Not on filedocumented in this encounter Care Teams Biochemistry Teacher Relationship Specialty Start Date End Date Melani Franklin DO [address] [facility] [address] [place] [address] PCP - General Internal Medicine 01/02/17 documented as of this encounter
--- OUTSIDE RECORDS SUMMARY | 2024-02-21 16:33 | XMS_ITS | Encounter Summary ---
Author Organization [facility] Address [address] [facility] Attn: [place] [address] Care Team Providers Care Compound Machine Operator Name Role Phone Melani Franklin DO Primary Care Provider [phone] Encounter Details Date Type Department Care Team (Latest Contact Info) Description 05/10/2022 Travel Social History Tobacco Use Types Packs/Day [...] Coronavirus/COVID-19? No / Unsure 05/10/2022 10:05 AM BUSINESS SYSTEMS CONSULTANT documented as of this encounter Plan of Treatment Upcoming Encounters Date Type Department Care Team (Late st Contact Info) Description 11/24/2024 9:30 AM CDT Office Visit [facility] Internal Medicine Medical [place] A MARYJANE [address] [facility] [address] [address] Melani Franklin DO [address] [facility] [address] [place] [address] documented as of this encounter Visit Diagnoses Not on filedocumented in this encounter Care Teams Compound Machine Operator Relationship Specialty Start Date End Date Melani Franklin DO [address] [facility] 189 [place] [address] PCP - General Internal Medicine 01/02/17 documented as of this encounter
--- OUTSIDE RECORDS SUMMARY | 2024-02-21 16:33 | XMS_ITS | Encounter Summary ---
Author Organization [facility] Address [address] [facility] Attn: [place] [address] Care Team Providers Care Application Administrator Name Role Phone Melani Franklin DO Primary Care Provider [phone] Encounter Details Date Type Department Care Team (Latest Contact Info) Description 04/19/2022 Travel Social History Tobacco Use Types Packs/Day [...] Coronavirus/COVID-19? No / Unsure 04/19/2022 8:58 AM GAS PIPE LAYER documented as of this encounter Plan of Treatment Upcoming Encounters Date Type Department Care Team (Late st Contact Info) Description 11/24/2024 9:30 AM CDT Office Visit [facility] Internal Medicine Medical [place] A MARYJANE [address] [facility] [address] [address] Melani Franklin DO [address] [facility] [address] [place] [address] documented as of this encounter Visit Diagnoses Not on filedocumented in this encounter Care Teams Application Administrator Relationship Specialty Start Date End Date Melani Franklin DO [address] [facility] 189 [place] [address] PCP - General Internal Medicine 01/02/17 documented as of this encounter
--- OUTSIDE RECORDS SUMMARY | 2024-02-21 16:33 | XMS_ITS | Encounter Summary ---
Author Organization [facility] Address [address] [place] [address] Care Team Providers Care Human Resources File Clerk Name Role Phone Melani Franklin DO Primary Care Provider [phone] Reason for Visit * Eval and Treat (Routine) - Closed Specialty Diagnoses / Procedures Referred By Contac t Referred To Contact Physical Therapy Diagnoses Neck pain, bilateral Procedures PT EVAL AND TREAT Barbara Mauricio, MEHRAN NO ADDRESS ON FILE Jeanie Blanchard, Physical Therapist Referral ID Status Reason Start Date Expiration Date Visits Re quested Visits Authorized [id number] Closed 01/04/2022 02/04/2023 99 99 Encounter Details Date Type Department Care Team (Late st Contact Info) Description 05/10/2022 10:00 AM UPHOLSTERY TRIMMER - 05/10/2022 11:59 PM [facility] Hospital Encounter [facility] Services Kristin Morrell [address] [place] [id number] Barbara Mauricio NP NO ADDRESS ON FILE [...] Coronavirus/COVID-19? No / Unsure 05/10/2022 10:05 AM UPHOLSTERY TRIMMER documented as of this encounter Medications at [...] Treatment - Essie Mary, Physical Therapist - 05/10/2022 10:00 AM CST Images from the original note were not included. Physical Therapy Daily Documentation Patient: Jody Mason Date: 05/10/2022 Date of : 1970 Referring Provider: Barbara Graham, * Diagnosis: M54.2 (ICD-10-CM) - 723.1 (ICD-9-CM) - Neck pain, bilateral Reason for Therapy: neck pain Precautions: None per prescription Fall Risk: no Next MD Appointment: 05/10/2022-pain management PN Due: 05/31/2022 Script Visits: 03/08 by 05/31/2022 Insurance Visits: 9 visits used/medical necessity approved by [facility] by 03/04/2023 Authorization: NA Summary List: Unchanged Time In: 10:03 am Time Out: 10:30 am Total Timed Treatment: 25 minutes Total Treatment Time: 25 minutes SUBJECTIVE Pain Level Pre-Treatment: 05/12 Pt reports her neck is feeling pretty good just still has tightness with side bending. OBJECTIVE Therapeutic Exercise: Review HEP verbally Home [...] tolerated treatment without adverse reaction. Pt had hypo-mobile lower cervical spine mobility with side glides which improved with mobilizations. She had less irritation with cervicalAROM following manual therapy. Pt would benefit from continued skilled therapy [...] Essie Mary DPT Physical Therapist License #: [id number] [address] [address] Phone: [phone] Fax: [phone] LSTERY TRIMMER documented in this encounter Plan of Treatment Upcoming Encounters Date Type Department Care Team (Late st Contact Info) Description 11/24/2024 9:30 AM CDT Office Visit [facility] Internal Medicine Medical [place] A MARYJANE [address] [facility] [address] [address] Melani Franklin DO [address] [facility] [address] [place], [place] [id number] documented as of this encounter Visit Diagnoses Not on filedocumented in this encounter Care Teams Human Resources File Clerk Relationship Specialty Start Date End Date Melani Franklin DO [address] [place] [address] PCP - General Internal Medicine 01/02/17 documented as of this encounter
--- OUTSIDE RECORDS SUMMARY | 2024-02-21 16:33 | XMS_ITS | Encounter Summary ---
Author Organization [facility] Address [address] [place] [address] Care Team Providers Care Bonded Strand Operator Name Role Phone Melani Franklin Primary Care Provider [phone] Reason for Referral * Eval and Treat (Routine) - Closed Specialty Diagnoses / Procedures Referred By Contac t Referred To Contact Pain Management Diagnoses Bulging of cervical intervertebral disc Barbara Mauricio NP NO ADDRESS ON FILE [facility] [address] [address] Referral ID Status Reason Start Date Expiration Date Visits Re quested Visits Authorized [id number] Closed 05/03/2022 05/03/2023 1 1 PENDENT TRADER Encounter Details Date Type Department Care Team (Late st Contact Info) Description 05/03/2022 Orders Only [facility] Internal Medicine Medical [facility] [address] [facility] [address] [address] Barbara Mauricio NP NO ADDRESS ON FILE Bulging of cervical intervertebral disc (Primary Dx) Social History Tobacco Use Types [...] Recorded In the last 10 days, have marcelina brown been in contact with someone who was confirmed or suspected to have Coronavirus/COVID-19? No / Unsure 05/03/2022 8:57 AM INDEPENDENT TRADER documented as of this encounter Progress Notes * Barbara Graham NP - 05/03/2022 12:55 PM CST Referral made for pain management. PENDENT TRADER documented in this encounter Plan of Treatment Upcoming Encounters Date Type Department Care Team (Late st Contact Info) Description 11/24/2024 9:30 AM CDT Office Visit [facility] Internal Medicine Medical [place] A [facility] [address] [facility] [address] [address] Melani Franklin DO [address] [facility] [address] [place] [address] Scheduled Referrals Name Type Priority Associated Diagnoses Orde r Schedule AMB REFERRAL TO PAIN CLINIC Outpatient Referral Routine Bulging of cervical intervertebral disc Ordered: 05/03/2022 documented as of this encounter Visit Diagnoses Diagnosis Bulging of cervical intervertebral disc- Primary documented in this encounter Care Teams Bonded Strand Operator Relationship Specialty Start Date End Date Melani Franklin DO [address] [facility] [address] [place] [address] PCP - General Internal Medicine 01/02/17 documented as of this encounter
--- OUTSIDE RECORDS SUMMARY | 2024-02-21 16:33 | XMS_ITS | Encounter Summary ---
Author Organization [email or web address] Address [address] [place] [address] Care Team Providers Care Inventory And Pricing Associate Name Role Phone Melani Franklin Primary Care Provider [phone] Reason for Referral * MRI (Routine) - Closed Specialty Diagnoses / Procedures Referred By Lishaac t Referred To Contact Radiology Diagnoses Neck pain, bilateral Procedures MRI CERVICAL W WO CONTRAST Barbara Mauricio NP NO ADDRESS ON FILE [facility] [place] [address] [facility] [address] [place] [address] Referral ID Status Reason Start Date Expiration Date Visits Re quested Visits Authorized [id number] Closed 04/24/2022 06/08/2022 1 1 ERS HELPER Reason for Visit * MRI (Routine) - Closed Specialty Diagnoses / Procedures Referred By Tyrone t Referred To Contact Radiology Diagnoses Neck pain, bilateral Procedures MRI CERVICAL W WO CONTRAST Barbara Mauricio NP NO ADDRESS ON FILE [facility] [place] [address] [place] [address] [place] [address] Referral ID Status Reason Start Date Expiration Date Visits Re quested Visits Authorized [id number] Closed 04/24/2022 06/08/2022 1 1 Encounter Details Date Type Department Care Team (Latest Contact Info) Description 04/27/2022 2:15 PM MOTHERS HELPER - 04/27/2022 11:59 PM MOTHERS HELPER Hospital Encounter [facility] Imaging Services [address] [place] [address] [place] [address] Barbara Mauricio NP NO ADDRESS ON FILE Discharge Disposition: Home or Self Care Social [...] In the last 10 days, have marcelina u been in contact with someone who was confirmed or suspected to have Coronavirus/COVID-19? No / Unsure 04/27/2022 2:12 PM MOTHERS HELPER documented as of this encounter Medications at [...] 06/16/2020 09/13/2022 documented as of this encounter Progress Notes * Emeterio Morris, RT - 04/27/2022 3:00 PM CST IMAGING SERVICES - MRI MEDICATION and FLUSH PROTOCOL [facility] THIS PROTOCOL IS IMPLEMENTED WHEN AN APPROVED PROVIDER ORDERS A MRI SCAN WITH CONTRAST BY PAPER OR ELECTRONIC ORDER. The cloth seconds sorter will order place an order in [facility] for contrast ???Scope of Practice - no cosign required?? . Enter the protocol in the patient's electronic health record using smartphrase: MRISouthmedflushprotocol Communication Orders: For ordered imaging procedures requiring intravenous access: Initiate a peripheral IV, if not already in place, and discontinue IV prior to discharge. Medication Orders: Sodium chloride 0.9% (normal saline) flush up to 10 mLs PRN for IV evaluation, saline lock, or medication administration. Sodium chloride 0.9% (normal saline) bolus up to 20-30 mLs PRN for power injection IV evaluation and IV Contrast flush. Procedure Specific Medications: MRI IV CONTRAST PROTOCOLS ADULTS: Gadobenate Dimeglumine (Multihance) injection (0.1mmol/0.2mL), Administer 0.1mmol/kg = 0.2mL/kg up to MAX of 30mL, intravenously, one time only If patient prefers a macrocyclic gadolinium agent, instead of a linear gadolinium agent use: Gadoteridol (Prohance) injection 0.1 mmol/kg (0.2 mL/kg) administered as a rapid intravenous infusion (10mL/min-60 mL/min) or bolus (> 60 mL/min), intravenously, one time only If recommended by Radiologist or Surgeon, administer Eovist (gadoxetate disodium) injection 0.1 mL/kg body weight (0.025 mmol/kg body weight). Breeza For Enterography, give patient 900ml Breeza, a flavored beverage. PEDIATRICS: Radiologist to determine need for contrast 2 years and older Gadobenate Dimeglumine (Multihance) injection (0.1mmol/0.2mL), Administer 0.1mmol/kg = 0.2mL/kg up to MAX of 20mL, intravenously, one time only Gadoteridol (Prohance) injection, dose is 0.1 mmol/kg (0.2 mL/kg) administered as a rapid intravenous infusion (10 mL/min-60 mL/min) or bolus (> 60 mL/min) intravenously, one time only Initiating Department(s): Imaging Services - Nuclear Medicine Approved by: Grzegorz Fernández, Consolidator Services Date: 08/2017 Approved by: Contreras Cadena MD, Import Export Agent Date: 08/2017 Approved by: P&T Committee Date: 09/2017 Approved by: Medical Executive Committee Date: 10/2017 ERS HELPER documented in this encounter Miscellaneous Notes * Result Encounter Note - Barbara Graham NP - 04/27/2022 3:00 PM MOTHERS HELPER [facility] documented in this encounter Plan of Treatment Upcoming Encounters Date Type Department Care Team (Late st Contact Info) Description 11/24/2024 9:30 AM CDT Office Visit [facility] Internal Medicine [facility] [address] [facility] [address] [address] Melani Franklin, DO [address] [facility] [address] [place] [address] documented as of this encounter Procedures Procedure Name Priority Date/Time Associated Diagnosis Comments MRI CERVICAL W WO CONTRAST Routine 04/27/2022 4:04 PM MOTHERS HELPER Neck pain, bilateral documented in this encounter Results * MRI CERVICAL W WO CONTRAST (04/27/2022 4:04 PM MOTHERS HELPER) Anatomical Region Laterality Modality Spine Magnetic Resonan ce 04/27/2022 4:04 PM MOTHERS HELPER Impressions 04/27/2022 4:44 PM MOTHERS HELPER IMPRESSION: 1. Cervical degenerative disc and joint disease as described above, most pronounced at C5-6. DICTATION LOCATION: Location [address] [place] [address] 04/27/2022 4:44 PM MOTHERS HELPER EXAMINATION: MRI CERVICAL W WO CONTRAST DATE: [...] most pronounced at C5-6. DICTATION LOCATION: Location [address] [place] [address] Barbara Mauricio NP MR ORDERABLES documented in this encounter Visit Diagnoses Diagnosis Neck pain, bilateral Cervicalgia documented in this encounter Administered Medications Inactive Administered Medications - up to 3 most recent administrations Medication Order MAR Action Action Date Dose Rate Site gadobenate dimeglumine (MULTIHANCE) 529 mg/mL (0.1mmol/0.2mL) injection 15 mL 15 mL, IV, INTRA-PROCEDURE ONCE, 1 dose, Starting on Tiffany 04/27/22 at 1541, Until Tiffany 04/27/22 at 1542, Routine Contrast Given 04/27/2022 3:42 PM MOTHERS HELPER 13 mL documented in this encounter Care Teams Inventory And Pricing Associate Relationship Specialty Start Date End Date Melani Franklin DO [address] [facility] [address] [place] [address] PCP - General Internal Medicine 01/02/17 documented as of this encounter
--- OUTSIDE RECORDS SUMMARY | 2024-02-21 16:34 | XMS_ITS | Encounter Summary ---
Author Organization [facility] Address [address] [place] [address] Care Team Providers Care Clean Room Technician Name Role Phone Melani Franklin DO Primary Care Provider [phone] Reason for Visit * Reason Onset Date Comments Information 01/17/2022 Encounter Details Date Type Department Care Team (Late st Contact Info) Description 01/17/2022 Telephone [facility] Internal Medicine Medical [facility] [address] [facility] [address] [address] Melani Franklin DO [address] [facility] [address] [place] [address] Information Social History Tobacco Use Types Packs/Day Years [...] suspected to have Coronavirus/COVID-19? No / Unsure 02/16/2022 9:53 AM PROSTHETIC ASSISTANT documented as of this encounter Miscellaneous Notes * Telephone Encounter - Radha Bolanos - 01/17/2022 11:03 AM CST Pt calling to say that the EMG will cost her $2700.00 out of pocket. She says that she will not do this test and will just do P.T. instead THETIC ASSISTANT documented in this encounter Plan of Treatment Upcoming Encounters Date Type Department Care Team (Late st Contact Info) Description 11/24/2024 9:30 AM CDT Office Visit [facility] Internal Medicine Medical [place] A [facility] [address] [facility] [address] [address] Melani Franklin DO [address] [facility] [address] [place] [address] documented as of this encounter Visit Diagnoses Not on filedocumented in this encounter Care Teams Clean Room Technician Relationship Specialty Start Date End Date Melani Franklin DO [address] [facility] [address] [place], [place] [address] PCP - General Internal Medicine 01/02/17 documented as of this encounter
--- OUTSIDE RECORDS SUMMARY | 2024-02-21 16:34 | XMS_ITS | Encounter Summary ---
Author Organization [facility] Address [address] [place] [address] Care Team Providers Care Roguer Name Role Phone Melani Franklin DO Primary Care Provider [phone] Reason for Visit * Reason Comments Medication Refill Encounter Details Date Type Department Care Team (Late st Contact Info) Description 07/19/2021 Refill [facility] Internal Medicine Medical [facility] [address] [facility] [address] [place] [address] Melani Franklin, [address] [address] Insomnia, unspecified type Social History Tobacco Use Types Packs/Day Years Used Date Smoking Tobacco: Former Cigarettes Q uit: 03/05/2007 Smokeless Tobacco: Never Alcohol Use Standard Drinks/Week Comments Yes 7 (1 standard drink = 0.6 oz pur e alcohol) Sex and Gender Information Value Date Recorded Sex Assigned at Female 11/16/2023 9:40 AM CDT Gender Identity Female 11/16/2023 9:40 AM CDT Sexual Orientation Not on file documented as of this encounter Miscellaneous Notes * Telephone Encounter - Rahel Gonzalez RN - 07/19/2021 4:35 PM CDT LRF: 05/22/2021 Quantity: #30, no refills SHIRA: 06/08/2021 NOV: 10/12/2021 documented in this encounter Plan of Treatment Upcoming Encounters Date Type Department Care Team (Late st Contact Info) Description 11/24/2024 9:30 AM CDT Office Visit [facility] Internal Medicine Medical [place] A MARYJANE [address] [facility] [address] [address] Melani Franklin DO [address] [facility] [address] [place] [address] documented as of this encounter Visit Diagnoses Diagnosis Insomnia, unspecified type documented in this encounter Care Teams Roguer Relationship Specialty Start Date End Date Melani Franklin DO [address] [facility] [address] [place], [place] [address] PCP - General Internal Medicine 01/02/17 documented as of this encounter
--- OUTSIDE RECORDS SUMMARY | 2024-02-21 16:34 | XMS_ITS | Encounter Summary ---
Author Organization [facility] Address [address] [facility] Attn: [place] [address] Care Team Providers Care Director Of Purchasing Name Role Phone Melani Franklin DO Primary Care Provider [phone] Encounter Details Date Type Department Care Team (Latest Contact Info) Description 02/16/2022 Travel Social History Tobacco Use Types Packs/Day [...] Coronavirus/COVID-19? No / Unsure 02/16/2022 9:53 AM MAINTENANCE GROUNDMAN documented as of this encounter Plan of Treatment Upcoming Encounters Date Type Department Care Team (Late st Contact Info) Description 11/24/2024 9:30 AM CDT Office Visit [facility] Internal Medicine Medical [place] A MARYJANE [address] [facility] [address] [address] Melani Franklin DO [address] [facility] [address] [place] [address] documented as of this encounter Visit Diagnoses Not on filedocumented in this encounter Care Teams Director Of Purchasing Relationship Specialty Start Date End Date Melani Franklin DO [address] [facility] [address] [place] [address] PCP - General Internal Medicine 01/02/17 documented as of this encounter
--- OUTSIDE RECORDS SUMMARY | 2024-02-21 16:34 | XMS_ITS | Encounter Summary ---
Author Organization [facility] Address [address] [facility] Attn: [place] [address] Care Team Providers Care Manufacturing Technician Name Role Phone Melani Franklin DO Primary Care Provider Encounter Details Date Type Department Care Team (Latest Contact Info) Description 04/11/2022 Travel Social History Tobacco Use Types Packs/Day [...] suspected to have Coronavirus/COVID-19? No / Unsure 04/11/2022 9:01 AM GLASS FINISHER documented as of this encounter Plan of Treatment Upcoming Encounters Date Type Department Care Team (Late st Contact Info) Description 11/24/2024 9:30 AM CDT Office Visit [facility] Internal Medicine Medical [place] A MARYJANE [address] [facility] [address] [address] Melani Franklin DO [address] [facility] [address] [place] [address] documented as of this encounter Visit Diagnoses Not on filedocumented in this encounter Care Teams Manufacturing Technician Relationship Specialty Start Date End Date Melani Franklin DO [address] [facility] [address] [place] [address] PCP - General Internal Medicine 01/02/17 documented as of this encounter
--- OUTSIDE RECORDS SUMMARY | 2024-02-21 16:34 | XMS_ITS | Encounter Summary ---
Author Organization [facility] Address [address] Attn: [place] [address] Care Team Providers Care Impact Hammer Operator Name Role Phone Melani Franklin DO Primary Care Provider [phone] Encounter Details Date Type Department Care Team (Latest Contact Info) Description 04/18/2022 Travel Social History Tobacco Use Types Packs/Day [...] suspected to have Coronavirus/COVID-19? No / Unsure 04/18/2022 8:36 AM PRODUCTION CORRUGATOR documented as of this encounter Plan of Treatment Upcoming Encounters Date Type Department Care Team (Late st Contact Info) Description 11/24/2024 9:30 AM CDT Office Visit [facility] Internal Medicine Medical [place] A [address]ANE [address] [address] Melani Franklin DO [address] [facility] [address] [place] [address] documented as of this encounter Visit Diagnoses Not on filedocumented in this encounter Care Teams Impact Hammer Operator Relationship Specialty Start Date End Date Melani Franklin DO [address] [facility] [address] [place] [address] PCP - General Internal Medicine 01/02/17 documented as of this encounter
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
--- OUTSIDE RECORDS SUMMARY | 2024-02-21 16:34 | XMS_ITS | Encounter Summary ---
Author Organization [facility] Address [address] Attn: [place] [address] Care Team Providers Care Equipment Detailer Name Role Phone Melani Franklin DO Primary Care Provider [phone] Encounter Details Date Type Department Care Team (Latest Contact Info) Description 03/20/2022 Travel Social History Tobacco Use Types Packs/Day [...] suspected to have Coronavirus/COVID-19? No / Unsure 03/20/2022 8:24 AM FABRIC SOURCER documented as of this encounter Plan of Treatment Upcoming Encounters Date Type Department Care Team (Late st Contact Info) Description 11/24/2024 9:30 AM CDT Office Visit [facility] Internal Medicine Medical [place] A [address]ARYJANE [address] [facility] [address] [address] Melani Franklin DO [address] [facility] [address] [place] [address] documented as of this encounter Visit Diagnoses Not on filedocumented in this encounter Care Teams Equipment Detailer Relationship Specialty Start Date End Date Melani Franklin DO [address] [facility] [address] [place] [address] PCP - General Internal Medicine 01/02/17 documented as of this encounter
--- OUTSIDE RECORDS SUMMARY | 2024-02-21 16:34 | XMS_ITS | Encounter Summary ---
Author Organization [facility] Address [address] [facility] Attn: [place] [address] Care Team Providers Care Fleshing Machine Operator Name Role Phone Melani Franklin DO Primary Care Provider [phone] Encounter Details Date Type Department Care Team (Latest Contact Info) Description 04/04/2022 Travel Social History Tobacco Use Types Packs/Day [...] suspected to have Coronavirus/COVID-19? No / Unsure 04/04/2022 11:21 AM FACTORY MAINTENANCE MANAGER documented as of this encounter Plan of Treatment Upcoming Encounters Date Type Department Care Team (Late st Contact Info) Description 11/24/2024 9:30 AM CDT Office Visit [facility] Internal Medicine Medical [place] A MARYJANE [address] [facility] [address] [address] Melani Franklin DO [address] [facility] [address] [place] [address] documented as of this encounter Visit Diagnoses Not on filedocumented in this encounter Care Teams Fleshing Machine Operator Relationship Specialty Start Date End Date Melani Franklin DO [address] [facility] [address] [place] [address] PCP - General Internal Medicine 01/02/17 documented as of this encounter
--- OUTSIDE RECORDS SUMMARY | 2024-02-21 16:34 | XMS_ITS | Encounter Summary ---
Author Organization [facility] Address [address] [place] [address] Care Team Providers Care Computer Systems Software Architect Name Role Phone Melani Franklin DO Primary Care Provider [phone] Reason for Visit * Eval and Treat (Routine) - Closed Specialty Diagnoses / Procedures Referred By Contac t Referred To Contact Physical Therapy Diagnoses Neck pain, bilateral Procedures PT EVAL AND TREAT Barbara Mauricio, MEHRAN NO ADDRESS ON FILE Jeanie Blanchard Physical Therapist Referral ID Status Reason Start Date Expiration Date Visits Re quested Visits Authorized [id number] Closed 01/04/2022 02/04/2023 99 99 Encounter Details Date Type Department Care Team (Latest Contact Info) Description 04/05/2022 9:40 AM STRIKE OPERATIONS OFFICER - 04/05/2022 11:59 PM STRIKE OPERATIONS OFFICER Hospital Encounter [facility] Services Kristin Morrell [address] [place] [address] Barbara Mauricio NP NO ADDRESS ON FILE [...] suspected to have Coronavirus/COVID-19? No / Unsure 04/05/2022 9:39 AM STRIKE OPERATIONS OFFICER documented as of this encounter Medications at [...] Treatment - Essie Mary, Physical Therapist - 04/05/2022 10:00 AM CST Images from the original note were not included. Physical Therapy Daily Documentation Patient: Jody Mason Date: 04/05/2022 Date of : 1970 Referring Provider: Barbara Graham, * Diagnosis: M54.2 (ICD-10-CM) - 723.1 (ICD-9-CM) - Neck pain, bilateral Reason for Therapy: neck pain Precautions: None per prescription Fall Risk: no Next MD Appointment: PRN PN Due: 04/12/2022 Script Visits: 06/10 by 04/12/2022 Insurance Visits: 4 visits used/medical necessity approved by [facility] by 03/04/2023 Authorization: NA Summary List: Unchanged Time In: 10:02 am Time Out: 10:30 am Total Timed Treatment: 26 minutes Total Treatment Time: 26 minutes SUBJECTIVE Pain Level Pre-Treatment: 5-610 Pt reports her neck felt better after last session but she went to the chiropractor and they did anadjustment that bothered her neck. Her neck is tight today. OBJECTIVE Therapeutic Exercise: Review HEP verbally Seated shoulder flexion and scaption with 2# weight x10 each UE, each direction Home Exercise Program - continue present program and HEP advanced in bold above Chin tucks Upper trapezius stretch Levator stretch Scapular retraction Straight arm pull down with blue band Seated B shoulder external rotation with green band Patient verbalized understanding, demonstrated understanding, and teach-back of HEP. Manual Therapy: with pt in prone: STM to upper trapezius, paraspinals, rhomboids, and levator; central and unilateral PA's to thoracic and cervical spine grade II/III Gait Training: na Therapeutic/Functional Activities: na Neuromuscular Re-education/Balance Training: na Modalities to Address: pain Ultrasound to B upper trapezius, lower cervical, and upper thoracic with pt in prone: 1MHz, 50% duty cycle, x8mins No adverse reaction observed. Objective Measures: none this date ASSESSMENT Pain Level Post-Treatment: 06/12 Impression: Pt tolerated treatment without adverse reaction. Pt reported reduction of symptoms following manual therapy and ultrasound. She had reduction of overall tissue tension at beginning of session compared to previous sessions but continues to have increased tissue tension in B upper trapezius. Pt would benefit from continued skilled therapy [...] Essie Mary DPT Physical Therapist License #: [id number] [facility] [place] [address] Phone: [phone] Fax: [phone] KE OPERATIONS OFFICER documented in this encounter Plan of Treatment Upcoming Encounters Date Type Department Care Team (Late st Contact Info) Description 11/24/2024 9:30 AM CDT Office Visit [facility] Internal Medicine Medical [facility] [address] [facility] [address] [address] Melani Franklin DO [address] [facility] [address] [place] [address] documented as of this encounter Visit Diagnoses Not on filedocumented in this encounter Care Teams Computer Systems Software Architect Relationship Specialty Start Date End Date Melani Franklin DO [address] [facility] [address] [place], [place] [id number] PCP - General Internal Medicine 01/02/17 documented as of this encounter
--- OUTSIDE RECORDS SUMMARY | 2024-02-21 16:34 | XMS_ITS | Encounter Summary ---
Author Organization [facility] Address [address] [place] [address] Care Team Providers Care Mounter Flutes And Piccolos Name Role Phone Melani Franklin DO Primary Care Provider Reason for Visit * Reason Onset Date Comments Medication Refill 08/03/2021 Encounter Details Date Type Department Care Team (Late st Contact Info) Description 08/03/2021 Refill [facility] Internal Medicine Medical [facility] [address] [facility] [address] [address] Melani Franklin, [address] [facility] [address] [place] [address] Cough Social History Tobacco Use Types Packs/Day Years [...] * Telephone Encounter - Kayla Meyers - 08/03/2021 2:08 PM CDT Medication is on current med list. Has been seen or will be seen in the office. 06/08/21, 10/12/21 Pt states she still has a few tabs left, but still has a cough at night and is leaving on vacation for 3 weeks. documented in this encounter Plan of Treatment Upcoming Encounters Date Type Department Care Team (Late st Contact Info) Description 11/24/2024 9:30 AM CDT Office Visit [facility] Internal Medicine Medical [place] A [facility] [address] [facility] [address] [address] Melani Franklin DO [address] [facility] [address] [place], [place] [id number] documented as of this encounter Visit Diagnoses Diagnosis Cough documented in this encounter Care Teams Mounter Flutes And Piccolos Relationship Specialty Start Date End Date Melani Franklin DO [address] [facility] [address] [place] [address] PCP - General Internal Medicine 01/02/17 documented as of this encounter
--- OUTSIDE RECORDS SUMMARY | 2024-02-21 16:34 | XMS_ITS | Encounter Summary ---
Author Organization [facility] Address [address] [place] [address] Care Team Providers Care User Support Analyst Supervisor Name Role Phone Melani Franklin DO Primary Care Provider [phone] Reason for Visit * Eval and Treat (Routine) - Closed Specialty Diagnoses / Procedures Referred By Contac t Referred To Contact Physical Therapy Diagnoses Neck pain, bilateral Procedures PT EVAL AND TREAT Barbara Mauricio, MEHRAN NO ADDRESS ON FILE Jeanie Blanchard Physical Therapist Referral ID Status Reason Start Date Expiration Date Visits Re quested Visits Authorized [id number] Closed 01/04/2022 02/04/2023 99 99 Encounter Details Date Type Department Care Team (Latest Contact Info) Description 03/22/2022 9:30 AM PARAPROFESSIONAL INTERPRETER - 03/22/2022 11:59 PM PARAPROFESSIONAL INTERPRETER Hospital Encounter [facility] Services Kristin Morrell [address] [place] [address] Barbara Mauricio NP NO ADDRESS ON FILE [...] suspected to have Coronavirus/COVID-19? No / Unsure 03/22/2022 9:32 AM PARAPROFESSIONAL INTERPRETER documented as of this encounter Medications at [...] Treatment - Essie Mary, Physical Therapist - 03/22/2022 9:30 AM CST Images from the original note were not included. Physical Therapy Daily Documentation Patient: Jody Mason Date: 03/22/2022 Date of : 1970 Referring Provider: Barbara Graham, * Diagnosis: M54.2 (ICD-10-CM) - 723.1 (ICD-9-CM) - Neck pain, bilateral Reason for Therapy: neck pain Precautions: None per prescription Fall Risk: no Next MD Appointment: PRN PN Due: 04/12/2022 Script Visits: 05/10 by 04/12/2022 Insurance Visits: 3 visits used/medical necessity approved by [facility] by 03/04/2023 Authorization: NA Summary List: Unchanged Time In: 9:32 am Time Out: 10:00 am Total Timed Treatment: 26 minutes Total Treatment Time: 26 minutes SUBJECTIVE Pain Level Pre-Treatment: 6.5/10 Pt reports she could barely sleep last night because her neck was bothering her. OBJECTIVE Therapeutic Exercise: Review HEP verbally Home Exercise Program - continue present program Tesfaye lopez Upper trapezius stretch Levator stretch Scapular retraction Straight arm pull down with blue band Seated B shoulder external rotation with green band Patient verbalized understanding, demonstrated understanding, and teach-back of HEP. Manual Therapy: STM to upper trapezius, paraspinals, rhomboids, and levator; central and unilateralPA's to thoracic and cervical spine grade II/III Gait Training: na Therapeutic/Functional Activities: na Neuromuscular Re-education/Balance Training: na Modalities to Address: none this date Objective Measures: none this date ASSESSMENT Pain Level Post-Treatment: 510 Impression: Pt tolerated treatment without adverse reaction. Pt had major reduction of symptoms following manual therapy. She had increased tissue tension in B upper trapezius/levator and paraspinalsin thoracic spine which reduced with STM. Pt would benefit [...] Essie Mary DPT Physical Therapist License #: [id number] [address] [address] Phone: [phone] Fax: [phone] PROFESSIONAL INTERPRETER documented in this encounter Plan of Treatment Upcoming Encounters Date Type Department Care Team (Late st Contact Info) Description 11/24/2024 9:30 AM CDT Office Visit [facility] Internal Medicine Medical [place] A MARYJANE [address] [facility] [address] [address] Melani Franklin, DO [address] [facility] [address] [place] [address] documented as of this encounter Visit Diagnoses Not on filedocumented in this encounter Care Teams User Support Analyst Supervisor Relationship Specialty Start Date End Date Melani Franklin DO [address] [facility] [address] [place] [address] PCP - General Internal Medicine 01/02/17 documented as of this encounter
--- OUTSIDE RECORDS SUMMARY | 2024-02-21 16:34 | XMS_ITS | Encounter Summary ---
Author Organization [facility] Address [address] [place] [address] Care Team Providers Care Fine Arts Chair Name Role Phone Melani Franklin DO Primary Care Provider [phone] Reason for Visit * Reason Comments Med Refill Encounter Details Date Type Department Care Team (Late st Contact Info) Description 11/22/2021 Refill [facility] [address] [facility] [address] [place] [address] Melani Franklin, [address] [address] Insomnia, unspecified type Social History [...] encounter Miscellaneous Notes * Telephone Encounter - Fernanda Driver RN - 11/22/2021 5:30 PM CDT Last office visit: 10/12/2021 Next office visit: 10/17/2022 Last refill: 07/20/2021 Quantity: 30/ Requested Prescriptions Pending Prescriptions Disp Refills zolpidem (AMBIEN) 5 mg tablet [Pharmacy Med Name: ZOLPIDEM 5MG TABLETS] 30 Tablet Sig: TAKE 1 TO 2 TABLETS(5 TO 10 MG) BY MOUTH EVERY NIGHT NEEDED FOR INSOMNIA documented in this encounter Plan of Treatment Upcoming Encounters Date Type Department Care Team (Late st Contact Info) Description 11/24/2024 9:30 AM CDT Office Visit [facility] Internal Medicine Medical [facility] [address] [facility] [address] [address] Melani Franklin DO [address] [facility] [address] [place] [address] documented as of this encounter Visit Diagnoses Diagnosis Insomnia, unspecified type documented in this encounter Care Teams Fine Arts Chair Relationship Specialty Start Date End Date Melani Franklin DO [address] [facility] [address] [place], [place] [id number] PCP - General Internal Medicine 01/02/17 documented as of this encounter
--- OUTSIDE RECORDS SUMMARY | 2024-02-21 16:34 | XMS_ITS | Encounter Summary ---
Author Organization [facility] Address [address] [place] [address] Care Team Providers Care Apprenticeship Training Representative Name Role Phone Melani Franklin DO Primary Care Provider [phone] Reason for Visit * Reason Comments Med Refill Encounter Details Date Type Department Care Team (Late st Contact Info) Description 03/13/2022 Refill [facility] Internal Medicine [facility] 189 [address] [facility] [address] [place] [address] Melani Franklin DO [address] [address] Mild episode of recurrent major [...] Coronavirus/COVID-19? No / Unsure 02/16/2022 9:53 AM PRE CERTIFICATION SPECIALIST documented as of this encounter Plan of Treatment Upcoming Encounters Date Type Department Care Team (Late st Contact Info) Description 11/24/2024 9:30 AM CDT Office Visit [facility]3] Internal Medicine [facility] 189 [address] [facility] [address] [address] Melani Franklin DO [address] [facility] [address] [place], [place] [id number] documented as of this encounter Visit Diagnoses Diagnosis Mild episode of recurrent major depressive disorder NAOMI (generalized anxiety disorder) Generalized anxiety disorder documented in this encounter Care Teams Apprenticeship Training Representative Relationship Specialty Start Date End Date Melani Franklin DO [address] [facility] [address] [place], [place] [id number] PCP - General Internal Medicine 01/02/17 documented as of this encounter
--- OUTSIDE RECORDS SUMMARY | 2024-02-21 16:34 | XMS_ITS | Encounter Summary ---
Author Organization [facility] Address [address] [facility] Attn: [place] [address] Care Team Providers Care Rpg Programmer Name Role Phone Melani Franklin DO Primary Care Provider [phone] Encounter Details Date Type Department Care Team (Latest Contact Info) Description 03/22/2022 Travel Social History Tobacco Use Types Packs/Day [...] Coronavirus/COVID-19? No / Unsure 03/22/2022 9:32 AM CONCRETE GRINDER OPERATOR documented as of this encounter Plan of Treatment Upcoming Encounters Date Type Department Care Team (Late st Contact Info) Description 11/24/2024 9:30 AM CDT Office Visit [facility] Internal Medicine Medical [place] [address] [facility] [address] [address] Melani Franklin DO [address] [facility] [address] [place] [address] documented as of this encounter Visit Diagnoses Not on filedocumented in this encounter Care Teams Rpg Programmer Relationship Specialty Start Date End Date Melani Franklin DO [address] [facility] [address] [place] [address] PCP - General Internal Medicine 01/02/17 documented as of this encounter
--- OUTSIDE RECORDS SUMMARY | 2024-02-21 16:34 | XMS_ITS | Encounter Summary ---
Author Organization [facility] Address [address] [place] [address] Care Team Providers Care Resistance Brazer Name Role Phone Melani Franklin DO Primary Care Provider [phone] Reason for Visit * Reason Comments Medication Refill Encounter Details Date Type Department Care Team (Late Contact Info) Description 06/08/2021 Refill [facility] Internal Medicine [facility] [address] [facility] [address] [place] [address] Michelle Temple, MEHRAN [address] [place] [address] Social History Tobacco Use Types Packs/Day Years [...] have Coronavirus / COVID-19? No / Unsure 06/08/2021 2:09 PM CDT documented as of this encounter Plan of Treatment Upcoming Encounters Date Type Department Care Team (Late st Contact Info) Description 11/24/2024 9:30 AM CDT Office Visit [facility] Internal Medicine [facility] [place] [address] [place] [address] Melani Franklin DO [address] [facility] [address] [place] [address] documented as of this encounter Visit Diagnoses Not on filedocumented in this encounter Care Teams Resistance Brazer Relationship Specialty Start Date End Date Melani Franklin DO [address] [facility] [address] [place] [address] PCP - General Internal Medicine 01/02/17 documented as of this encounter
--- OUTSIDE RECORDS SUMMARY | 2024-02-21 16:34 | XMS_ITS | Encounter Summary ---
Author Organization [facility] Address [address] [place] [address] Care Team Providers Care Color Developer Name Role Phone Melani Franklin DO Primary Care Provider [phone] Encounter Details Date Type Department Care Team (Late Contact Info) Description 10/20/2021 Abstract [facility] Internal Medicine [facility] [address] [facility] [address] [facility] [place] [address] Melani Franklin, DO [address] [facility] [address] [place] [address] Social History Tobacco Use Types Packs/Day [...] 11/24/2024 9:30 AM CDT Office Visit [facility] Internal Medicine [facility] [address] [facility] [address] [place] [address] Melani Franklin, DO [address] [facility] [address] [place] [address] documented as of this encounter Visit Diagnoses Not on filedocumented in this encounter Care Teams Color Developer Relationship Specialty Start Date End Date Melani Franklin DO [address] [facility] [address] [place] [address] PCP - General Internal Medicine 01/02/17 documented as of this encounter
--- OUTSIDE RECORDS SUMMARY | 2024-02-21 16:34 | XMS_ITS | Encounter Summary ---
Author Organization [facility] Address [address] [place] [address] Care Team Providers Care Brazer Controlled Atmospheric Furnace Name Role Phone Melani Franklin DO Primary Care Provider [phone] Reason for Visit * Reason Comments Med Refill Encounter Details Date Type Department Care Team (Late st Contact Info) Description 02/24/2022 Refill [facility] Internal Medicine [facility] [address] [address] Melani Franklin DO [address] [place] [address] Mild episode of recurrent major depressive [...] Coronavirus/COVID-19? No / Unsure 02/16/2022 9:53 AM CRECHE ATTENDANT documented as of this encounter Plan of Treatment Upcoming Encounters Date Type Department Care Team (Late st Contact Info) Description 11/24/2024 9:30 AM CDT Office Visit [facility] Internal Medicine [facility] [address] [facility] [address] [facility] [place] [address] Melani Franklin DO [address] [facility] [address] [place] [address] documented as of this encounter Visit Diagnoses Diagnosis Mild episode of recurrent major depressive disorder documented in this encounter Care Teams Brazer Controlled Atmospheric Furnace Relationship Specialty Start Date End Date Melani Franklin DO [address] [facility] [address] [place], [place] [address] PCP - General Internal Medicine 01/02/17 documented as of this encounter
--- OUTSIDE RECORDS SUMMARY | 2024-02-21 16:34 | XMS_ITS | Encounter Summary ---
Author Organization [facility] Address [address] [facility] Attn: [place] [address] Care Team Providers Care Sink Cutter Name Role Phone Melani Franklin DO Primary Care Provider [phone] Encounter Details Date Type Department Care Team (Latest Contact Info) Description 01/16/2022 Travel Social History Tobacco Use Types Packs/Day [...] suspected to have Coronavirus/COVID-19? No / Unsure 01/16/2022 4:43 PM PASTE PLANT SUPERVISOR documented as of this encounter Plan of Treatment Upcoming Encounters Date Type Department Care Team (Late st Contact Info) Description 11/24/2024 9:30 AM CDT Office Visit [facility] Internal Medicine Medical [place] A [place] [address] [facility] [address] [address] Melani Franklin DO [address] [facility] [address] [place] [address] documented as of this encounter Visit Diagnoses Not on filedocumented in this encounter Care Teams Sink Cutter Relationship Specialty Start Date End Date Melani Franklin DO [address] [facility] [address] [place] [address] PCP - General Internal Medicine 01/02/17 documented as of this encounter
--- OUTSIDE RECORDS SUMMARY | 2024-02-21 16:34 | XMS_ITS | Encounter Summary ---
Author Organization [facility] Address [address] [place] [address] Care Team Providers Care Head Of Acquisitions Name Role Phone Melani Franklin DO Primary Care Provider [phone] Reason for Visit * Radiology Services (Routine) - Closed Specialty Diagnoses / Procedures Referred By Tyrone baxter Referred To Contact Diagnoses Visit for screening mammogram Procedures MAMMO SCRN ANISH IMPL 3D DENIS W OR WO CAD MAMMO SCRN BILAT 3D DENIS W OR WO CAD CHG SCREENING MAMMOGRAPHY BI 2-VIEW BREAST INC CAD CHG SCREENING DIGITAL BREAST TOMOSYNTHESIS BI Melani Franklin, DO [address] [facility] [address] [place] [address] Referral ID Status Reason Start Date Expiration Date Visits Re quested Visits Authorized [id number] Closed 03/24/2022 04/24/2023 1 1 Encounter Details Date Type Department Care Team (Latest Contact Info) Description 04/11/2022 9:02 AM SUPERVISOR PLATING AND POINT ASSEMBLY - 04/11/2022 11:59 PM [facility] Hospital Encounter [facility] Medical [place] [address] [place] [address] Melani Franklin, DO [address] [facility] [address] [place] [address] Discharge Disposition: Home or Self [...] Coronavirus/COVID-19? No / Unsure 04/11/2022 9:01 AM SUPERVISOR PLATING AND POINT ASSEMBLY documented as of this encounter Medications at [...] Description 11/24/2024 9:30 AM CDT Office Visit [facility] Internal Medicine Medical [facility] [address] [facility] [address] [place] [address] Melani Franklin [facility], [address] [facility] [address] [place] [address] documented as of this encounter Procedures Procedure Name Priority Date/Time Associated Diagnosis Comments MAMMO 3D DENIS SCREEN IMPL BILAT W OR WO CAD Routine 04/11/2022 12:39 PM SUPERVISOR PLATING AND POINT ASSEMBLY Visit for screening mammogram documented in this encounter Results * MAMMO SCRN ANISH IMPL 3D DENIS W OR WO CAD (04/11/2022 12:39 PM SUPERVISOR PLATING AND POINT ASSEMBLY) Anatomical Region Laterality Modality Breast Bilateral Mammography 04/11/2022 12:4 0 PM SUPERVISOR PLATING AND POINT ASSEMBLY Addenda Addendum by Enoc Zarate MD on 04/18/2022 4:05 PM SUPERVISOR PLATING AND POINT ASSEMBLY ADDENDUM: ??Prior mammograms from an outside facility are now available for review, dating back to 08/06/2018 and most recently 03/14/2021. Subpectoral, silicone implants are partially imaged and appear intact. There is no suspicious mass, clustered microcalcification, or architectural distortion in either breast on 2D or tomosynthesis images. There has been no change in the mammographic appearance compared with the prior study. IMPRESSION: No mammographic evidence of malignancy. ?? OVERALL FINAL ASSESSMENT: BI-RADS Category 2: Benign finding(s). RECOMMENDATION: Bilateral screening mammogram in one year. Impressions 04/11/2022 3:57 PM SUPERVISOR PLATING AND POINT ASSEMBLY IMPRESSION: 1. Need outside films. OVERALL FINAL ASSESSMENT: ??BI-RADS CATEGORY 0: ??Incomplete, needs comparison to prior mammograms. RECOMMENDATIONS: 1. Outside films will be obtained. An addendum will be dictated when these films are available. ?? Narrative 04/11/2022 3:57 PM SUPERVISOR PLATING AND POINT ASSEMBLY BILATERAL SCREENING DIGITAL MAMMOGRAM WITH 3D TOMOSYNTHESIS AND CAD ?? DATE: 04/11/2022 12:39 PM DICTATION LOCATION: [facility] INDICATION: Routine yearly screening mammogram. TECHNIQUE: Full field digital screening mammograms of both breasts were performed. 2D and 3D acquisitions were obtained. CAD was utilized. ?? COMPARISON: None available. BREAST COMPOSITION: Scattered fibroglandular densities FINDINGS: Comparison will be obtained to assure stability of the parenchymal pattern. An addendum will be dictated when these films are made available. ??There are intact subpectoral silicone implants. Procedure Note Steve Mullen MD / Enoc Zarate MD - 04/11/2022 BILATERAL SCREENING DIGITAL MAMMOGRAM WITH 3D TOMOSYNTHESIS AND CAD DATE: 04/11/2022 12:39 PM DICTATION LOCATION: [facility] INDICATION: Routine yearly screening mammogram. TECHNIQUE: Full field digital screening mammograms of both breasts were performed. 2D and 3D acquisitions were obtained. CAD was utilized. COMPARISON: None available. BREAST COMPOSITION: Scattered fibroglandular densities FINDINGS: Comparison will be obtained to assure stability of the parenchymal pattern. An addendum will be dictated when these films are made available. There are intact subpectoral silicone implants. IMPRESSION: 1. Need outside films. OVERALL FINAL ASSESSMENT: BI-RADS CATEGORY 0: Incomplete, needs comparison to prior mammograms. RECOMMENDATIONS: 1. Outside films will be obtained. An addendum will be dictated when these films are available. Melani Franklin DO MAMMO ORDERABLES documented in this encounter Visit Diagnoses Diagnosis Visit for screening mammogram Other screening mammogram documented in this encounter Care Teams Head Of Acquisitions Relationship Specialty Start Date End Date Melani Franklin DO [address] [place] [address] PCP - General Internal Medicine 01/02/17 documented as of this encounter
--- OUTSIDE RECORDS SUMMARY | 2024-02-21 16:34 | XMS_ITS | Encounter Summary ---
Author Organization [facility] Address [address] [place] [address] Care Team Providers Care Demurrage Worker Name Role Phone Melani Franklin DO Primary Care Provider [phone] Reason for Visit * Reason Comments Medication Refill Encounter Details Date Type Department Care Team (Late st Contact Info) Description 06/24/2021 Refill [facility] Internal Medicine Medical [facility] [address] [facility] [address] [place] [address] Melani Franklin, [address] [address] Cold sore Social History Tobacco Use [...] PM CDT documented as of this encounter Miscellaneous Notes * Telephone Encounter - Nereyda Echavarria - 06/24/2021 10:27 AM CDT Medication is on current med list. Has been seen or will be seen in the office. documented in this encounter Plan of Treatment Upcoming Encounters Date Type Department Care Team (Late st Contact Info) Description 11/24/2024 9:30 AM CDT Office Visit [facility] Internal Medicine Medical [place] A [place] [address] [facility] [address] [address] Melani Franklin DO [address] [facility] [address] [place] [address] documented as of this encounter Visit Diagnoses Diagnosis Cold sore Herpes simplex without mention of complication documented in this encounter Care Teams Demurrage Worker Relationship Specialty Start Date End Date Melani Franklin DO [address] [facility] [address] [place] [address] PCP - General Internal Medicine 01/02/17 documented as of this encounter
--- OUTSIDE RECORDS SUMMARY | 2024-02-21 16:34 | XMS_ITS | Encounter Summary ---
Author Organization [facility] Address [address] [place] [address] Care Team Providers Care Swimming Pool Plasterer Helper Name Role Phone Melani Franklin DO Primary Care Provider [phone] Reason for Visit * Reason Comments Nurse Only Encounter Details Date Type Department Care Team (Latest Contact Info) Description 10/17/2021 2:00 PM CDT Clinical Support [facility] Internal Medicine [facility] [address] [facility] [address] [address] [facility], Nurse Need for Tdap vaccination (Primary Dx) Social History Tobacco Use Types [...] [facility] Internal Medicine [facility] A [facility] [address] [facility] [address] [address] Melani Franklin DO [address] [facility] [address] [place] [address] documented as of this encounter Visit Diagnoses Diagnosis Need for Tdap vaccination- Primary Need for prophylactic vaccination with combined ljstkoddvr-qdulsvk-czfyuqewt (DTP) vaccine documented in this encounter Care Teams Swimming Pool Plasterer Helper Relationship Specialty Start Date End Date Melani Franklin DO [address] [place] [address] PCP - General Internal Medicine 01/02/17 documented as of this encounter
--- OUTSIDE RECORDS SUMMARY | 2024-02-21 16:34 | XMS_ITS | Encounter Summary ---
Author Organization [facility] Address [address] [place] [address] Care Team Providers Care Engineering Secretary Name Role Phone Melani Franklin DO Primary Care Provider [phone] Reason for Visit * Reason Comments Medication Refill Encounter Details Date Type Department Care Team (Late st Contact Info) Description 10/17/2021 Refill [facility] Internal Medicine Medical [place] [facility] [address] [facility] [address] [place] [address] Melani Franklin, [address] [address] Mild intermittent extrinsic asthma without complication (Primary Dx) Social History Tobacco Use Types [...] encounter Miscellaneous Notes * Telephone Encounter - Jaylene Gudino RN - 10/18/2021 9:56 AM CDT Last office visit: 10/12/21 Next office visit: none Last refill: 08/03/21 Quantity: 8.5 gram no refills Requested Prescriptions Pending Prescriptions Disp Refills ??? albuterol sulfate 90 mcg/Actuation inhaler [Pharmacy Med Name: ALBUTEROL HFA INH (200 PUFFS)8.5GM] 8.5 Gram 0 Sig: INHALE 2 PUFFS BY MOUTH EVERY 6 HOURS NEEDED FOR SHORTNESS OF BREATH documented in this encounter Plan of Treatment Upcoming Encounters Date Type Department Care Team (Late st Contact Info) Description 11/24/2024 9:30 AM CDT Office Visit [facility] Internal Medicine Medical [facility] [address] [facility] [address] [address] Melani Franklin DO [address] [facility] [address] [place], [place] [address] documented as of this encounter Visit Diagnoses Diagnosis Mild intermittent extrinsic asthma without complication- Primary documented in this encounter Care Teams Engineering Secretary Relationship Specialty Start Date End Date Melani Franklin DO [address] [facility] [address] [place], [place] [address] PCP - General Internal Medicine 01/02/17 documented as of this encounter
--- OUTSIDE RECORDS SUMMARY | 2024-02-21 16:34 | XMS_ITS | Encounter Summary ---
Author Organization [facility] Address [address] [place] [address] Care Team Providers Care Supervisor Ore Dressing Name Role Phone Melani Franklin DO Primary Care Provider [phone] Encounter Details Date Type Department Care Team (Latest Contact Info) Description 01/04/2022 11:17 AM CDT - 01/04/2022 11:59 PM CDT Hospital Encounter [facility] Services [facility] [address] [place] [phone] Barbara Mauricio NP NO ADDRESS ON FILE [...] suspected to have Coronavirus/COVID-19? No / Unsure 01/04/2022 11:15 AM CDT documented as of this encounter [...] AT BEDTIME 90 Tablet 3 10/30/2021 10/29/2022 buPROPion HCL (Wellbutrin XL) 150 mg Extended Release 24 hour tabletIndications:Mild episode of recurrent major depressive disorder,NAOMI (generalized anxiety disorder) Take 1 Tablet (150 mg) by mouth daily in the morning. 90 Tablet 1 10/12/2021 03/13/2022 ALPRAZolam (XANAX) 0.25 mg tabletIndications:Insom adis, unspecified type Take 1-2 Tablets (0.25-0.5 mg) by mouth nightly as needed for Anxiety or Insomnia. 30 Tablet 1 07/07/2021 06/12/2022 valACYclovir (VALTREX) 1 gram tabletIndications:Cold sore TAKE 2 TABLETS BY MOUTH TWICE DAILY 4 Tablet 3 06/24/2021 07/29/2022 omeprazole (PriLOSEC) 20 mg Capsule, Delayed Release(E.C.) TAKE 1 CAPSULE(20 MG) BY MOUTH DAILY(GINA ART) 90 Capsule 1 06/08/2021 01/19/2022 escitalopram oxalate (LEXAPRO) 20 mg tabletIndications:Mild episode of recurrent major depressive disorder TAKE 1 TABLET(20 MG) BY MOUTH DAILY 90 Tablet 3 03/04/2021 02/28/2022 lisinopril-hydroCHLOROt hiazide (ZESTORETIC) 10-12.5 mg tablet Take 1 Tablet by mouth daily. 90 Tablet 3 12/07/2020 01/09/2022 naproxen (NAPROSYN) 500 mg tablet TAKE 1 TABLET BY MOUTH TWICE DAILY 180 Tablet 06/16/2020 09/13/2022 documented as of this encounter Plan of Treatment Upcoming Encounters Date Type Department Care Team (Late st Contact Info) Description 11/24/2024 9:30 AM CDT Office Visit [facility] Internal Medicine [facility] [address] [facility] [address] [address] Melani Franklin, DO [address] [facility] [address] [place] [address] documented as of this encounter Procedures Procedure Name Priority Date/Time Associated Diagnosis Comments XR CERVICAL SPINE 4 OR 5 VIEWS Routine 01/04/2022 11:31 AM CDT Neck pain, bilateral documented in this encounter Results * XR CERVICAL SPINE 4 OR 5 VIEWS (01/04/2022 11:31 AM CDT) Anatomical Region Laterality Modality Spine Computed Radiogr aphy 01/04/2022 11:3 2 AM CDT Impressions 01/04/2022 12:32 PM CDT IMPRESSION: Spondylosis ?? DICTATION LOCATION: Location 1 - [facility] Narrative 01/04/2022 12:32 PM CDT XR CERVICAL SPINE 4 OR 5 VIEWS DATE: 01/04/2022 11:31 AM HISTORY: See Diagnosis. ?? Neck pain, bilateral ?? COMPARISON: None. FINDINGS: ??There is degenerative disc space narrowing and hypertrophic spurring particularly at C4 and C5. There is slight neural foraminal encroachment at C5 on the right. There is no sign of fracture subluxation or bone destruction. Posterior elements appear intact. INCIDENTAL FINDINGS: ??None. Procedure Note Melo Landin MD - 01/04/2022 XR CERVICAL SPINE 4 OR 5 VIEWS DATE: 01/04/2022 11:31 AM HISTORY: See Diagnosis. Neck pain, bilateral COMPARISON: None. FINDINGS: There is degenerative disc space narrowing and hypertrophic spurring particularly at C4 and C5. There is slight neural foraminal encroachment at C5 on the right. There is no sign of fracture subluxation or bone destruction. Posterior elements appear intact. INCIDENTAL FINDINGS: None. IMPRESSION: Spondylosis DICTATION LOCATION: Location 1 - [facility] Barbara Mauricio NP DIAGNOSTIC IMAG ING ORDERABLES documented in this encounter Visit Diagnoses Diagnosis Neck pain, bilateral Cervicalgia documented in this encounter Care Teams Supervisor Ore Dressing Relationship Specialty Start Date End Date Melani Franklin DO [address] [facility] [address] [place] [address] PCP - General Internal Medicine 01/02/17 documented as of this encounter
--- OUTSIDE RECORDS SUMMARY | 2024-02-21 16:34 | XMS_ITS | Encounter Summary ---
Author Organization [facility] Address [address] [place] [address] Care Team Providers Care Veneer Jointer Helper Name Role Phone Melani Franklin DO Primary Care Provider [phone] Reason for Visit * Reason Comments Med Refill Encounter Details Date Type Department Care Team (Late st Contact Info) Description 11/08/2021 Refill [facility] Internal Medicine Medical [place] A [facility] [address] [facility] [address] [place] [address] Melani Franklin, [address] [address] Mild intermittent extrinsic asthma without [...] encounter Miscellaneous Notes * Telephone Encounter - Aminta De La Garza RN - 11/09/2021 9:45 AM CDT Last office visit: 10/12/21 Next office visit: 10/17/22 Last refill: 10/18/21 Quantity: 8.5 Gram / 0 Requested Prescriptions Pending Prescriptions Disp Refills albuterol sulfate 90 mcg/Actuation inhaler [Pharmacy Med Name: ALBUTEROL HFA INH (200 PUFFS)8.5GM] 8.5 Gram 0 Sig: INHALE 2 PUFFS BY MOUTH EVERY 6 HOURS NEEDED FOR SHORTNESS OF BREATH documented in this encounter Plan of Treatment Upcoming Encounters Date Type Department Care Team (Late st Contact Info) Description 11/24/2024 9:30 AM CDT Office Visit [facility] Internal Medicine Medical [place] A [facility] [address] [address] [address] Melani Franklin DO [address] [facility] [address] [place], [place] [id number] documented as of this encounter Visit Diagnoses Diagnosis Mild intermittent extrinsic asthma without complication documented in this encounter Care Teams Veneer Jointer Helper Relationship Specialty Start Date End Date Melani Franklin DO [address] [facility] [address] [place] [address] PCP - General Internal Medicine 01/02/17 documented as of this encounter
--- OUTSIDE RECORDS SUMMARY | 2024-02-21 16:34 | XMS_ITS | Encounter Summary ---
Author Organization [facility] Address [address] [place] [address] Care Team Providers Care Front End Architect Name Role Phone Melani Franklin DO Primary Care Provider [phone] Reason for Visit * Eval and Treat (Routine) - Closed Specialty Diagnoses / Procedures Referred By Contac t Referred To Contact Physical Therapy Diagnoses Neck pain, bilateral Procedures PT EVAL AND TREAT Barbara Mauricio, MEHRAN NO ADDRESS ON FILE Jeanie Blanchard Physical Therapist Referral ID Status Reason Start Date Expiration Date Visits Re quested Visits Authorized [id number] Closed 01/04/2022 02/04/2023 99 99 Encounter Details Date Type Department Care Team (Latest Contact Info) Description 04/10/2022 9:50 AM HAT CHECKER - 04/10/2022 11:59 PM HAT CHECKER Hospital Encounter [facility] Services [address]in [address] [address] [place] [address] Barbara Mauricio NP NO ADDRESS ON FILE [...] suspected to have Coronavirus/COVID-19? No / Unsure 04/10/2022 9:49 AM HAT CHECKER documented as of this encounter Medications at [...] Note - Essie Mary, Physical Therapist - 04/10/2022 10:00 AM CST Images from the original note were not included. Physical Therapy Progress Note Patient: Jody Mason Date: 04/10/2022 Date of : 1970 Referring Provider: Barbara Graham, * Diagnosis: M54.2 (ICD-10-CM) - 723.1 (ICD-9-CM) - Neck pain, bilateral Reason for Therapy: neck pain Precautions: None per prescription Fall Risk: no Next MD Appointment: PRN PN Due: 04/12/2022 Script Visits: 07/10 by 04/12/2022 Please co-sign for extended PT POC Insurance Visits: 5 visits used/medical necessity approved by [facility] by 03/04/2023 Authorization: NA Summary List: Unchanged Time In: 10:03 am Time Out: 10:31 am Total Timed Treatment: 26 minutes Total Treatment Time: 26 minutes Jody Mason has been seen for 5/8 visits from 03/15/2022 to 04/10/2022 with 3 cancellations and 0no shows. Treatments consisted of: functional mobility, home exercise program, joint mobilization, manual therapy, patient/family education, plan of care, posture/body mechanics instruction, range of motion, safety, stretching, and strengthening therapeutic exercises Therapeutic Exercise to increase strength, ROM, flexibility, stablization. Manual Treatments - soft/deep tissue massage, joint mobilization Modalities - Therapist Discretion and Ultrasound SUBJECTIVE Pt reports she was getting her makeup done over the weekend and had to have her head tilted back for prolonged time which bothered it a little bit. Overall, she has noticed she doesn't get the sharp pains with movements. Functional Progress: less pain overall, can sit and stand without irritation, can sleep without irritation, working at the computer is less irritating with breaks to stretch neck Remaining Functional Limitations: looking over shoulder while driving, dressing, prolonged sitting,working at computer, sitting to read Pain: Best - 4/10 Worst - 8/10 Currently - 08/12 Description/Location/Frequency/Duration: neck: sharp, burning, tight from base of skull to shoulderblade Alleviating Factors: stretching, resting Aggravating Factors: looking over shoulder while driving, sleeping, dressing, prolonged sitting, working at computer, sitting to read OBJECTIVE Functional Outcomes: Neck Disability Index Score 30 % Disability (03/15/22 1219) Neck Disability Index Score 32 % Disability (04/10/22 1021) Appearance: Pt is a pleasant 52 yo female who is motivated to participate in therapy. Posture: pt had increased muscle tension/bulk in B upper trapezius, L>R. She had to adjust sitting posture multiple times to get comfortable. Gait: unremarkable Cervical ROM Comments Flexion 39?? Extension 40 (was: 29?? Right Left Side Bending 15 (was: 16?? 20 (was: 18?? Rotation 43 (was: 29?? 51 (was: 41?? Strength Right Left Comments Shoulder Flexion 4+/5 (same) 5-/5 (was: 4+/5 Shoulder Abduction 5-/5 (was: 4/5 5/5 (was: 5-/5 Shoulder Internal Rotation 5/5 5/5 Shoulder External Rotation 5/5 (was: 4+/5 5/5 (was: 4+/5 Middle Trapezius NT/5 NT/5 Lower Trapezius [...] teach-back of HEP. ASSESSMENT Pain Level Post-Treatment: 08/12 Rehab Diagnosis: neck pain Rehabilitation Potential: Good [...] prolonged sitting to read or work on computer. Although pt has made improvements in cervical ROM and UE strength, she continues to lack complete trunk ROM and B hip strength to complete functional movements. Pt has demonstrated a worsened NDI disability score from 30 to 32. Pt would benefit from continued skilled therapy [...] score on NDI with score of <15 ONGOING 4. Pt will demonstrate improved B UE [...] Essie Mary DPT Physical Therapist License #: [id number] [address] [address] Phone: [phone] Fax: [phone] CHECKER documented in this encounter Plan of Treatment Upcoming Encounters Date Type Department Care Team (Late st Contact Info) Description 11/24/2024 9:30 AM CDT Office Visit [facility] Internal Medicine Medical [place] A [facility] [address] [facility] [address] [address] Melani Franklin DO [address] [facility] [address] [place] [address] documented as of this encounter Visit Diagnoses Not on filedocumented in this encounter Care Teams Front End Architect Relationship Specialty Start Date End Date Melani Franklin DO [address] [facility] [address] [place], [place] [address] PCP - General Internal Medicine 01/02/17 documented as of this encounter
--- OUTSIDE RECORDS SUMMARY | 2024-02-21 16:34 | XMS_ITS | Encounter Summary ---
Author Organization [facility] Address [address] [place] [address] Care Team Providers Care Licensed Prosthetist Name Role Phone Melani Franklin DO Primary Care Provider [phone] Reason for Visit * Reason Comments Medication Refill Encounter Details Date Type Department Care Team (Late st Contact Info) Description 10/16/2021 Refill [facility] Internal Medicine [facility] [address] [facility] [address] [place] [address] Melani Franklin, [address] [place] [address] Social History Tobacco Use Types Packs/Day [...] Office Visit [facility] Internal Medicine [facility] [address] [facility] [address] [place] [address] Melani Franklin, DO [address] [address] documented as of this encounter Visit Diagnoses Not on filedocumented in this encounter Care Teams Licensed Prosthetist Relationship Specialty Start Date End Date Melani Franklin DO [address] [place] [address] PCP - General Internal Medicine 01/02/17 documented as of this encounter
--- OUTSIDE RECORDS SUMMARY | 2024-02-21 16:34 | XMS_ITS | Encounter Summary ---
Author Organization [facility] Address [address] [place] [address] Care Team Providers Care Gis Mapping Technician Name Role Phone Melani Franklin DO Primary Care Provider [phone] Reason for Visit * Reason Comments Med Refill Encounter Details Date Type Department Care Team (Late st Contact Info) Description 01/08/2022 Refill [facility] Internal Medicine Medical [place] A [facility] [address] [facility] [address] [place] [address] Melani Franklin, [address] [address] Social History Tobacco Use Types [...] encounter Miscellaneous Notes * Telephone Encounter - Raegan Dominguez RN - 01/09/2022 7:52 AM CST Recent Visits Date Type Provider Dept 01/04/22 Office Visit Barbara Graham NP [facility] Int Med [place] [facility] [place] [address] 10/12/21 Office Visit Melani Franklin DO [facility] Int Med [place] [facility] [address] 06/08/21 Office Visit Michelle Temple NP [facility] Int Med [place] [facility] [place] [address] 11/05/20 Video Visit Felicia Arevalo, AUTOMATIC CENTRIFUGAL STATION OPERATOR [facility] Int Med [place] A [place] [address] Showing recent visits within past 540 days with a meds authorizing provider and meeting all other requirements Future Appointments No visits were found meeting these conditions. Showing future appointments within next 150 days with a meds authorizing provider and meeting all other requirements ING COORDINATION METEOROLOGIST documented in this encounter Plan of Treatment Upcoming Encounters Date Type Department Care Team (Late st Contact Info) Description 11/24/2024 9:30 AM CDT Office Visit [facility] Internal Medicine Medical [place] [facility] [address] [facility] [address] [address] Melani Franklin DO [address] [facility] [address] [place], [place] [id number] documented as of this encounter Visit Diagnoses Not on filedocumented in this encounter Care Teams Gis Mapping Technician Relationship Specialty Start Date End Date Melani Franklin DO [address] [facility] [address] [place] [address] PCP - General Internal Medicine 01/02/17 documented as of this encounter
--- OUTSIDE RECORDS SUMMARY | 2024-02-21 16:34 | XMS_ITS | Encounter Summary ---
Author Organization [facility] Address [address] [facility] Attn: [place] [address] Care Team Providers Care Ordering Machine Operator Name Role Phone Melani Franklin DO Primary Care Provider Encounter Details Date Type Department Care Team (Latest Contact Info) Description 03/15/2022 Travel Social History Tobacco Use Types Packs/Day [...] Coronavirus/COVID-19? 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 documented as of this encounter Plan of Treatment Upcoming Encounters Date Type Department Care Team (Late st Contact Info) Description 11/24/2024 9:30 AM CDT Office Visit [facility] Internal Medicine Medical [place] A [place] [address] [facility] [address] [address] Melani Franklin DO [address] [facility] [address] [place] [address] documented as of this encounter Visit Diagnoses Not on filedocumented in this encounter Care Teams Ordering Machine Operator Relationship Specialty Start Date End Date Melani Franklin DO [address] [facility] [address] [place] [address] PCP - General Internal Medicine 01/02/17 documented as of this encounter
--- OUTSIDE RECORDS SUMMARY | 2024-02-21 16:34 | XMS_ITS | Encounter Summary ---
Author Organization [facility] Address [address] [facility] Attn: [place] [address] Care Team Providers Care Clam Digger Name Role Phone Melani Franklin DO Primary Care Provider Encounter Details Date Type Department Care Team (Latest Contact Info) Description 03/27/2022 Travel Social History Tobacco Use Types Packs/Day [...] suspected to have Coronavirus/COVID-19? 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 Internal Medicine Medical [place] A [place] [address] [facility] [address] [address] Melani Franklin DO [address] [facility] [address] [place] [address] documented as of this encounter Visit Diagnoses Not on filedocumented in this encounter Care Teams Clam Digger Relationship Specialty Start Date End Date Melani Franklin DO [address] [facility] [address] [place] [address] PCP - General Internal Medicine 01/02/17 documented as of this encounter
--- OUTSIDE RECORDS SUMMARY | 2024-02-21 16:34 | XMS_ITS | Encounter Summary ---
Author Organization [facility] Address [address] [facility] Attn: [place] [address] Care Team Providers Care Virtualization Architect Name Role Phone Melani Franklin DO Primary Care Provider [phone] Encounter Details Date Type Department Care Team (Latest Contact Info) Description 04/05/2022 Travel Social History Tobacco Use Types Packs/Day [...] Coronavirus/COVID-19? No / Unsure 04/05/2022 9:39 AM RETAIL RESET MERCHANDISER documented as of this encounter Plan of Treatment Upcoming Encounters Date Type Department Care Team (Late st Contact Info) Description 11/24/2024 9:30 AM CDT Office Visit [facility] Internal Medicine Medical [place] A [place] [address] [facility] [address] [address] Melani Franklin DO [address] [facility] [address] [place] [address] documented as of this encounter Visit Diagnoses Not on filedocumented in this encounter Care Teams Virtualization Architect Relationship Specialty Start Date End Date Melani Franklin DO [address] [facility] [address] [place] [address] PCP - General Internal Medicine 01/02/17 documented as of this encounter
--- OUTSIDE RECORDS SUMMARY | 2024-02-21 16:34 | XMS_ITS | Encounter Summary ---
Author Organization [facility] Address [address] [place] [address] Care Team Providers Care Concrete Mixer Operator Helper Name Role Phone Melani Franklin Primary Care Provider [phone] Reason for Referral * Outpatient Services (Routine) - Closed Specialty Diagnoses / Procedures Referred By Tyrone baxter Referred To Contact EMG Diagnoses Paresthesia of finger Procedures EMG WITH NERVE CONDUCTION Barbara Mauricio NP NO ADDRESS ON FILE [facility] [address] [place] [address] Referral ID Status Reason Start Date Expiration Date Visits Re quested Visits Authorized [id number] Closed 01/12/2022 02/12/2023 1 1 LE SEWER Encounter Details Date Type Department Care Team (Late st Contact Info) Description 01/12/2022 Orders Only [facility] Internal Medicine Medical [place] A [place] [address] [facility] [address] [address] Barbara Mauricio NP NO ADDRESS ON FILE Paresthesia of finger (Primary Dx) Social History Tobacco Use Types [...] AM CDT documented as of this encounter Progress Notes * Barbara Graham NP - 01/12/2022 4:18 PM CST EMG Nerve Conduction Study order. Number for scheduling Nerve conduction test and physical therapy. [phone] LE SEWER documented in this encounter Plan of Treatment Upcoming Encounters Date Type Department Care Team (Late st Contact Info) Description 11/24/2024 9:30 AM CDT Office Visit [facility] Internal Medicine Medical [place] A [place] [address] [facility] [address] [address] Melani Franklin, DO [address] [facility] [address] [place] [address] documented as of this encounter Results * EMG WITH NERVE CONDUCTION (04/18/2022 7:47 PM HANDLE SEWER) Narrative Procedure Note Wendy Keyes MD - 04/18/2022 7:47 PM CST [place], [place] [address] EMG/NCS CSN: [id number] REASON FOR REFERRAL This patient is a 52-year-old woman, who was referred to electrodiagnosticlaboratory for evaluation of pain and paresthesias in her right upperextremity, particularly region of the neck. SUMMARY OF FINDINGS The right median motor nerve conduction study recorded over abductorpollicis brevis revealed low normal CMAP amplitude, mildly prolongeddistal motor latency, and normal conduction velocity. The right ulnar motor nerve conduction study recorded over abductor digitiminimi was normal. The right median and the right ulnar antidromic sensory nerve conductionstudies recorded over digits 2 and 5, respectively, revealed slowedconduction velocity of the median nerve. The right median and right radial antidromic sensory nerve conductionstudies revealed significant difference between the peak latencies of themedian and radial nerves of 0.73 milliseconds, while normal is less than0.4 milliseconds. The conduction velocity of the median nerve wasslowed. The right median and right ulnar orthodromic mixed nerve conductionstudies revealed prolonged peak latency of the median nerve andsignificant difference within the peak latencies of the median and ulnarnerves of 1.15 milliseconds, while normal is less than 0.3 milliseconds. EMG of the right abductor pollicis brevis, 1st dorsal interosseus,extensor digitorum communis was normal. EMG of the right triceps brachii revealed evidence of chronic denervation. EMG of the right deltoid was normal. INTERPRETATION/CONCLUSION This study is abnormal and it revealed several electrodiagnosticabnormalities: There is an electrodiagnostic evidence compatible with the right carpaltunnel syndrome, which is moderate in severity. 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 There is no evidence ofactive denervation in any of the muscles examined, which rules out acutecervical radiculopathy based on the electrodiagnostic criteria. However,a correlation with an imaging study of the cervical spine may help explainchronic denervation in the triceps brachii. There is no electrodiagnostic evidence to suggest ulnar neuropathy. KK:[id number] Dictated by: Wendy Keyes MD Barbara Mauricio NP NEUROLOGY [facility] documented in this encounter Visit Diagnoses Diagnosis Paresthesia of finger- Primary Paresthesia of finger documented in this encounter Care Teams Concrete Mixer Operator Helper Relationship Specialty Start Date End Date Melani Franklin DO [address] [facility] [address] [place] [address] PCP - General Internal Medicine 01/02/17 documented as of this encounter
--- OUTSIDE RECORDS SUMMARY | 2024-02-21 16:34 | XMS_ITS | Encounter Summary ---
Author Organization [facility] Address [address] [place] [address] Care Team Providers Care Sap Bi Developer Name Role Phone Melani Franklin DO Primary Care Provider [phone] Reason for Visit * Eval and Treat (Routine) - Closed Specialty Diagnoses / Procedures Referred By Contac t Referred To Contact Physical Therapy Diagnoses Neck pain, bilateral Procedures PT EVAL AND TREAT Barbara Mauricio, MEHRAN NO ADDRESS ON FILE Jeanie Blanchard Physical Therapist Referral ID Status Reason Start Date Expiration Date Visits Re quested Visits Authorized [id number] Closed 01/04/2022 02/04/2023 99 99 Encounter Details Date Type Department Care Team (Latest Contact Info) Description 03/27/2022 8:57 AM COMMERCIAL LITIGATION ASSOCIATE - 03/27/2022 11:59 PM COMMERCIAL LITIGATION ASSOCIATE Hospital Encounter [facility] Kristin Morrell [address] [place] [id number] Barbara Mauricio NP NO ADDRESS ON FILE [...] Coronavirus/COVID-19? No / Unsure 03/27/2022 8:56 AM COMMERCIAL LITIGATION ASSOCIATE documented as of this encounter Medications at [...] Treatment - Essie Mary, Physical Therapist - 03/27/2022 9:00 AM CST Images from the original note were not included. Physical Therapy Daily Documentation Patient: Jody Mason Date: 03/27/2022 Date of : 1970 Referring Provider: Barbara Graham, * Diagnosis: M54.2 (ICD-10-CM) - 723.1 (ICD-9-CM) - Neck pain, bilateral Reason for Therapy: neck pain Precautions: None per prescription Fall Risk: no Next MD Appointment: PRN PN Due: 04/12/2022 Script Visits: 05/10 by 04/12/2022 Insurance Visits: 3 visits used/medical necessity approved by [facility] by 03/04/2023 Authorization: NA Summary List: Unchanged Time In: 9:02 am Time Out: 9:30 am Total Timed Treatment: 26 minutes Total Treatment Time: 26 minutes SUBJECTIVE Pain Level Pre-Treatment: 4-07/12 Pt reports she went to the chiropractor after her PT session and she felt better but she is a little stiff today. OBJECTIVE Therapeutic Exercise: Review HEP verbally Home [...] B upper trapezius, lower cervical, and upper thoracic: 1MHz, 50% duty cycle, x8mins No adverse reaction observed. Objective Measures: none this date ASSESSMENT Pain Level Post-Treatment: 06/12 Impression: Pt tolerated treatment without adverse reaction. Pt had less overall tissue tension this date but continues to have tension point in L upper trapezius/levator and R upper thoracic which reduced with STM. She had no adverse reaction to ultrasound and reported reduction of symptoms following STM and ultrasound. Pt would benefit from continued skilled therapy [...] Essie Mary DPT Physical Therapist License #: [id number] [address] [address] Phone: [phone] Fax: [phone] ERCIAL LITIGATION ASSOCIATE documented in this encounter Plan of Treatment Upcoming Encounters Date Type Department Care Team (Late st Contact Info) Description 11/24/2024 9:30 AM CDT Office Visit [facility] Internal Medicine Medical [place] A [facility] [address] [address] NoemiMelani jarrett DO [address] [place] [address] documented as of this encounter Visit Diagnoses Not on filedocumented in this encounter Care Teams Sap Bi Developer Relationship Specialty Start Date End Date Melani Franklin DO [address] [place] [address] PCP - General Internal Medicine 01/02/17 documented as of this encounter
--- OUTSIDE RECORDS SUMMARY | 2024-02-21 16:34 | XMS_ITS | Encounter Summary ---
Author Organization [facility] Address [address] [place] [address] Care Team Providers Care Change House Attendant Name Role Phone Melani Franklin DO Primary Care Provider [phone] Reason for Visit * Reason Comments Physical Encounter Details Date Type Department Care Team (Late st Contact Info) Description 10/12/2021 10:20 AM CDT Office Visit [facility] Internal Medicine Medical [facility] [address] [address] Melani Franklin, [address] [facility] [address] [place] [address] Routine general medical examination at a health care facility (Primary Dx); Mild episode of recurrent major depressive disorder; NAOMI (generalized anxiety disorder); Migraine with aura and without status migrainosus, not intractable; Benign hypertension; Perimenopause; Mild intermittent extrinsic asthma without complication; Need for Tdap vaccination; Sedative, 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 documented as of this encounter Last Filed Vital Signs Vital Sign Reading Time Taken Comments Blood Pressure 130/84 10/12/2021 10:38 AM CDT Pulse 68 10/12/2021 10:38 AM CDT Temperature 36.5 ??C (97.7 ??F) 10/12/2021 1 0:38 AM CDT Respiratory Rate 12 10/12/2021 10:3 8 AM CDT Oxygen Saturation 97% 10/12/2021 10: 38 AM CDT Inhaled Oxygen Concentration - - Weight 72.5 kg (159 lb 12.8 oz) 022 10:38 AM CDT Height 160 cm (5' 3 ) 10/12/2021 10:38 AM CDT Body Mass Index 28.31 10/12/2021 10:38 AM CDT documented in this encounter Progress Notes * Melani Franklin, DO - 10/12/2021 10:44 AM CDT HISTORY OF PRESENT ILLNESS Jody Mason, a 52 y.o. female presents with a Chief Complaint of Physical Subjective HPI Jody is here for her routine physical. The medications, allergies, past medical history, family history, and social history are all reviewed and updated at this visit. Trazodone gave her nightmares so stopped that. Feels like Lexapro is otherwise working well. Seeing community recreation coordinator for her allergic asthma. HTN- Patient is compliant with current antihypertensive medications. Denies BRANNON, syncope, focal neuro deficits. Blood pressures at home aren't monitored routinely. Patient Active Problem List Diagnosis Date Noted Mild episode of recurrent major depressive disorder 06/24/2020 Benign hypertension 01/02/2017 Postcholecystectomy diarrhea 01/02/2017 Migraine with aura and without status migrainosus, not intractable 01/02/2017 Insomnia 01/02/2017 Current Outpatient Medications Medication Instructions albuterol sulfate 90 mcg/Actuation inhaler 2 Puffs, Inhalation, EVERY 6 HOURS PRN ALipoic Acid/Bioflav/Mv/Gr Tea (ULTRA FRANCOIS ORAL) Oral, DAILY ALPRAZolam (XANAX) 0.25-0.5 mg, Oral, NIGHTLY PRN Biotin 1 mg Tablet Oral cetirizine (ZYRTEC) 10 mg, Oral, DAILY cholestyramine, with sugar, (QUESTRAN) 4 gram Powder in Packet DISSOLVE CONTENTS OF 1 PACKET IN LIQUID AND DRINK BY MOUTH DAILY COLLAGEN MISC Misc.(Non-Drug; Combo Route), DAILY escitalopram oxalate (LEXAPRO) 20 mg tablet TAKE 1 TABLET(20 MG) BY MOUTH DAILY glucosamine/chondr evans A sod (OSTEO BI-FLEX ORAL) Oral, DAILY lisinopril-hydroCHLOROthiazide (ZESTORETIC) 10-12.5 mg tablet 1 Tablet, Oral, DAILY montelukast (SINGULAIR) 10 mg tablet TAKE 1 TABLET(10 MG) BY MOUTH DAILY AT BEDTIME naproxen (NAPROSYN) 500 mg tablet TAKE 1 TABLET BY MOUTH TWICE DAILY NORTREL 1/35, 28, 1-35 mg-mcg tablet 1 Tablet, Oral, DAILY omeprazole (PriLOSEC) 20 mg Capsule, Delayed Release(E.C.) TAKE 1 CAPSULE(20 MG) BY MOUTH DAILY(GINA ART) RESVERATROL ORAL Oral, DAILY SUMAtriptan (IMITREX) 100 mg tablet TAKE 1 TABLET BY MOUTH AT ONSET OF MIGRAINE. MAY REPEAT AFTER 2HOURS IF HEADACHE RETURNS. NOT TO EXCEED 2 TABLETS IN 24 HOURS valACYclovir (VALTREX) 1 gram tablet TAKE 2 TABLETS BY MOUTH TWICE DAILY zolpidem (AMBIEN) 5 mg tablet TAKE 1 TO 2 TABLETS (5-10 MG) BY MOUTH EVERY NIGHT NEEDED FOR INSOMNIA. REVIEW OF SYSTEMS Review of Systems Constitutional: Negative for chills, fatigue and fever. HENT: Negative for congestion, hearing loss, sinus pressure and sore throat. Eyes: Negative for visual disturbance. Respiratory: Negative for cough, chest tightness and shortness of breath. Cardiovascular: Negative for chest pain, palpitations and leg swelling. Gastrointestinal: Negative for abdominal pain, blood in stool, constipation, diarrhea, nausea and vomiting. Genitourinary: Negative for difficulty urinating, dysuria, frequency and hematuria. Musculoskeletal: Negative for joint swelling. Skin: Negative for rash. Neurological: Negative for dizziness, weakness, numbness and headaches. Psychiatric/Behavioral: Positive for sleep disturbance. Negative for dysphoric mood. The patient isnervous/anxious. Objective PHYSICAL EXAM BP 130/84 (BP Location: Right arm, Patient Position (BP): Sitting, BP Cuff Size: Adult) Pulse 68 Temp 97.7 ??F (36.5 ??C) (Temporal) Resp 12 Ht 5' 3 (1.6 m) Wt 72.5 kg (159 lb 12.8 oz) SpO2 97% BMI 28.31 kg/m?? Physical Exam Constitutional: General: She is [...] at a health care facility Z00.00 V70.0 TSH REFLEXIVE COMPREHENSIVE METABOLIC PANEL LIPID PANEL HEMOGLOBIN A1C LIPID PANEL COMPREHENSIVE METABOLIC PANEL HEMOGLOBIN A1C TSH REFLEXIVE 2. Mild episode of recurrent major depressive disorder F33.0 296.31 buPROPion HCL (Wellbutrin XL) 150 mg Extended Release 24 hour tablet 3. NAOMI (generalized anxiety disorder) F41.1 300.02 buPROPion HCL (Wellbutrin XL) 150 mg Extended Release 24 hour tablet 4. Migraine with aura and without status migrainosus, not intractable G43.109 346.00 5. Benign hypertension I10 401.1 TSH REFLEXIVE COMPREHENSIVE METABOLIC PANEL COMPREHENSIVE METABOLIC PANEL TSH REFLEXIVE 6. Perimenopause N95.1 627.2 FSH LUTEINIZING HORMONE FSH LUTEINIZING HORMONE 7. Mild intermittent extrinsic asthma without complication J45.20 493.00 8. Need for Tdap vaccination Z23 V06.1 TDAP VACCINE >7 YO IM 9. 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 This included colonoscopy, bone density, calcium replacement, exercise, diet, mammograms, pap smears (pending result from Dr. Lainez this week), self breast exams, immunizations and screening labs. NAOMI and depression fairly well controlled. Add Wellbutrin to her regimen and may help her with weight loss. Will also check other labs as ordered, if BS is high then will add Metformin and try Ozempic. HTN well controlled on current meds. Migraines well controlled on current meds. Labs for perimenopause. Asthma well controlled on current meds. 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 MAKER documented in this encounter Miscellaneous Notes * Patient Instructions - Melani Franklin DO - 10/12/2021 10:59 AM CDT Nura Maddox BMI= 28 documented in this encounter Plan of Treatment Upcoming Encounters Date Type Department Care Team (Late st Contact Info) Description 11/24/2024 9:30 AM CDT Office Visit [facility] Internal Medicine Medical [facility] [address] [place] [phone] Melani Franklin DO [address] [facility] [place] [address] documented as of this encounter Procedures Procedure Name Priority Date/Time Associated Diagnosis Comments TSH REFLEXIVE Routine 10/12/2021 11:32 AM CDT Routine general medical examination at a health care facility Benign hypertension HEMOGLOBIN A1C Routine 10/12/2021 11:32 AM CDT Routine general medical examination at a health care facility LUTEINIZING HORMONE Routine 10/12/2021 1 1:32 AM CDT Perimenopause FSH Routine 10/12/2021 11:32 AM CDT Perimenopause LIPID PANEL Routine 10/12/2021 11:32 AM CDT Routine general medical examination at a health care facility COMPREHENSIVE METABOLIC PANEL Routine 10/12/2021 11:32 AM CDT Routine general medical examination at a health care facility Benign hypertension documented in this encounter Results * HEMOGLOBIN A1C (10/12/2021 11:32 AM CDT) HEMOGLOBIN A1C 4.5 <5.7 % of total Hgb Rosy [facility] Comment: For the purpose of screening for the presence of diabetes: <5.7% ? Consistent with the absence of diabetes 5.7-6.4% ?Consistent with increased risk for diabetes ?(prediabetes) > or =6.5% ??Consistent with diabetes This assay result is consistent with a decreased risk of diabetes. Currently, no consensus exists regarding use of hemoglobin A1c for diagnosis of diabetes in children. According to [place] Diabetes Association (ADA) guidelines, hemoglobin A1c <7.0% represents optimal control in non- diabetic patients. Different metrics may apply to specific patient populations. Standards of Medical Care in Diabetes(ADA). ?? ESTIMATED AVERAGE GLUCOSE (MG/DL) 82 mg/dL Rosy [facility] ESTIMATED AVERAGE GLUCOSE (MMOL/L) 4.6 mmol/L [facility] Comment: FASTING:YES FASTING: YES Test Performed at: [facility] [address] [place], [place] ??[address] [facility] Blood 10/12/2021 11:3 2 AM CDT 10/12/2021 11:33 AM CDT Melani Franklin DO CHEMISTRY ORDERABLES [facility] [phone] [facility] [address] [place] [address] * (ABNORMAL) LUTEINIZING HORMONE (10/12/2021 11:32 AM CDT) LUTEINIZING HORMONE 0.3(L) mIU/mL [facility] Comment: ?Reference Range Follicular Phase ??1.9-12.5 Mid-Cycle Peak ?8.7-76.3 Luteal Phase ?0.5-16.9 Postmenopausal ?10.0-54.7 Test Performed at: [facility] ??[address] Kaushal Van D.O., MPH Blood 10/12/2021 11:3 2 AM CDT 10/12/2021 11:33 AM CDT Melani Franklin DO CHEMISTRY ORDERABLES Performing Organization Address City/State/[facility] Co in Phone Number [facility] [phone] [address] * FSH (10/12/2021 11:32 AM CDT) Pathologist [facility] FSH 2.3 mIU/mL [facility] Comment: ?Reference Range ? Follicular Phase ? 2.5-10.2 ? Mid-cycle Peak ? 3.1-17.7 ? Luteal Phase ? 1.5- 9.1 ? Postmenopausal ? 23.0-116.3 ? Test Performed at: [facility] ??[address] Kaushal Van D.O., MPH Blood 10/12/2021 11:3 2 AM CDT 10/12/2021 11:33 AM CDT Melani Franklin DO CHEMISTRY ORDERABLES [facility] [phone] [facility] [address] [place] [address] * (ABNORMAL) LIPID PANEL (10/12/2021 11:32 AM CDT) CHOLESTEROL 202(H) <200 mg/dL [facility] HDL 46(L) > OR = 50 mg/dL [facility] TRIGLYCERIDE 385(H) <150 mg/dL [facility] Comment: If a non-fasting specimen was collected, consider repeat triglyceride testing on a fasting specimen if clinically indicated. Esmer et al. J. of Clin. Lipidol. 2015;9:129-169. LDL CALCULATED 105(H) mg/dL (calc) [facility] Comment: Reference range: <100 Desirable range <100 mg/dL for primary prevention; ?? <70 mg/dL for patients with CHD or diabetic patients with > or = 2 CHD risk factors. LDL-C is now calculated using the Anurag-Breana calculation, which is a validated novel method providing better accuracy than the Friedewald equation in the estimation of LDL-C. Anurag SS et al. DAVIS. 2013;310(19): 9850-0411 (http://education.[employer]/faq/UJO056) CHOL/HDL RATIO 4.4 <5.0 (calc) Rosy [facility] TOTAL NON-HDL CHOL(LDL+VLDL) 156(H) <130 mg/dL (calc) Rosy [facility] Comment: For patients with diabetes plus 1 major ASCVD risk factor, treating to a non-HDL-C goal of <100 mg/dL (LDL-C of <70 mg/dL) is considered a therapeutic option. Test Performed at: [facility] [address] [place] ??[address] [facility] Blood 10/12/2021 11:3 2 AM CDT 10/12/2021 11:33 AM CDT Melani Linda Franklin DO CHEMISTRY ORDERABLES [facility] [phone] [facility] [address] [place] [address] * (ABNORMAL) COMPREHENSIVE METABOLIC PANEL (10/12/2021 11:32 AM CDT) GLUCOSE 87 65 - 99 mg/dL [facility] Comment: ? Fasting reference interval BUN 14 7 - 25 mg/dL [facility] CREATININE 0.69 0.50 - 1.03 mg/dL [facility] GFR 104 > OR = 60 mL/min/1 .73m2 [facility] Comment: The eGFR is based on the CKD-EPI 2020 equation. To calculate the new eGFR from a previous Creatinine or Cystatin C result, go to https://www.kidney.org/professionals/ kdoqi/gfr%5Fcalculator BUN/CREAT RATIO NOT APPLICABLE 6 - 22 (calc) [facility] SODIUM 140 135 - 146 mmol/L [facility] POTASSIUM 4.5 3.5 - 5.3 mmol/L [facility] CHLORIDE 104 98 - 110 mmol/L [facility] CO2 27 20 - 32 mmol/L [facility] CALCIUM 9.2 8.6 - 10.4 mg/dL [facility] TOTAL PROTEIN 6.6 6.1 - 8.1 g/dL [facility] ALBUMIN 4.2 3.6 - 5.1 g/dL [facility] GLOBULIN 2.4 1.9 - 3.7 g/dL (calc) [facility] ALBUMIN/GLOBULIN RATIO 1.8 1.0 - 2.5 (calc) [facility] BILIRUBIN TOTAL 0.9 0.2 - 1.2 mg/dL [facility] ALKALINE PHOSPHATASE 40 37 - 153 U/L [facility] AST 70(H) 10 - 35 U/L [facility] ALT 52(H) 6 - 29 U/L [facility] Comment: Test Performed at: [facility] [address] [place], [place] ??[address] Carlos Leiva Blood 10/12/2021 11:3 2 AM CDT 10/12/2021 11:33 AM CDT Melani Franklin DO CHEMISTRY ORDERABLES Performing Organization Address City/[facility] Phone Number [facility] [phone] [place] [address] [place] [address] * TSH REFLEXIVE (10/12/2021 11:32 AM CDT) TSH 0.99 mIU/L [facility] Comment: ?Reference Range ?> or = 20 Years ??0.40-4.50 ? Ranges ?First trimester ?0.26-2.66 ?Second trimester ?? 0.55-2.73 ?Third trimester ?0.43-2.91 Test Performed at: [facility] ??[address] Kaushal Van D.O., MPH Blood 10/12/2021 11:3 2 AM CDT 10/12/2021 11:33 AM CDT Melani Franklin DO CHEMISTRY ORDERABLES Performing Organization Address City/State/ZIP Co in Phone Number [facility] [phone] [facility] [address] [place] [address] documented in this encounter Visit Diagnoses Diagnosis Routine general medical examination at a health care facility- Primary Mild episode of recurrent major depressive disorder NAOMI (generalized anxiety disorder) Generalized anxiety disorder Migraine with aura and without status migrainosus, not intractable Migraine with aura, without mention of intractable migraine without mention of status migrainosus Benign hypertension Essential hypertension, benign Perimenopause Symptomatic menopausal or female climacteric states Mild intermittent extrinsic asthma without complication Need for Tdap vaccination Need for prophylactic vaccination with combined svivdsmion-vbjvkrz-ymhdqjyro (DTP) vaccine Sedative, 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
--- OUTSIDE RECORDS SUMMARY | 2024-02-21 16:34 | XMS_ITS | Encounter Summary ---
Author Organization [facility] Address [address] Attn: [place] [address] Care Team Providers Care Home Support Worker Name Role Phone Melani Franklin DO Primary Care Provider [phone] Encounter Details Date Type Department Care Team (Latest Contact Info) Description 04/10/2022 Travel Social History Tobacco Use Types Packs/Day [...] Coronavirus/COVID-19? 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 documented as of this encounter Plan of Treatment Upcoming Encounters Date Type Department Care Team (Late st Contact Info) Description 11/24/2024 9:30 AM CDT Office Visit [facility] Internal Medicine Medical [place] [facility] [address] [address] Melani Franklin DO [address] [facility] [address] [place] [address] documented as of this encounter Visit Diagnoses Not on filedocumented in this encounter Care Teams Home Support Worker Relationship Specialty Start Date End Date Melani Franklin DO [address] [facility] [address] [place] [address] PCP - General Internal Medicine 01/02/17 documented as of this encounter
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
--- OUTSIDE RECORDS SUMMARY | 2024-02-21 16:34 | XMS_ITS | Encounter Summary ---
Author Organization [facility] Address [address] [place] [address] Care Team Providers Care Jewelry Enameler Name Role Phone Melani Franklin DO Primary Care Provider [phone] Reason for Visit * Reason Comments Med Refill Encounter Details Date Type Department Care Team (Late st Contact Info) Description 10/29/2021 Refill [facility] Internal Medicine [facility] [address] [facility] [address] [place] [address] Melani Franklin, [address] [place] [address] Social History Tobacco Use Types Packs/Day [...] Description 11/24/2024 9:30 AM CDT Office Visit [facility] Internal Medicine [facility] [address] [place] [address] Melani Franklin, DO [address] [address] documented as of this encounter Visit Diagnoses Not on filedocumented in this encounter Care Teams Jewelry Enameler Relationship Specialty Start Date End Date Melani Franklin DO [address] [place] [address] PCP - General Internal Medicine 01/02/17 documented as of this encounter
--- OUTSIDE RECORDS SUMMARY | 2024-02-21 16:34 | XMS_ITS | Encounter Summary ---
Author Organization [facility] Address [address] [place] [address] Care Team Providers Care Loss Prevention Agent Name Role Phone Melani Franklin Primary Care Provider [phone] Reason for Referral * Outpatient Services (Routine) - Closed Specialty Diagnoses / Procedures Referred By Tyrone baxter Referred To Contact EMG Diagnoses Paresthesia of finger Procedures EMG WITH NERVE CONDUCTION Barbara Mauricio NP NO ADDRESS ON FILE [facility] Emg [address] [place] [address] Referral ID Status Reason Start Date Expiration Date Visits Re quested Visits Authorized [id number] Closed 01/12/2022 02/12/2023 1 1 POO PERSON Reason for Visit * Outpatient Services (Routine) - Closed Specialty Diagnoses / Procedures Referred By Tyrone baxter Referred To Contact EMG Diagnoses Paresthesia of finger Procedures EMG WITH NERVE CONDUCTION Barbara Mauricio NP NO ADDRESS ON FILE [facility]g [address] [place] [address] Referral ID Status Reason Start Date Expiration Date Visits Re quested Visits Authorized [id number] Closed 01/12/2022 02/12/2023 1 1 Encounter Details Date Type Department Care Team (Latest Contact Info) Description 04/18/2022 8:30 AM SHAMPOO PERSON - 04/18/2022 11:59 PM SHAMPOO PERSON Hospital Encounter [facility] Support Services [facility] [place] [address] [place] [address] Wendy Keyes MD [address] [facility] [address] [place] [address] Discharge Disposition: Home or Self Care Social [...] Coronavirus/COVID-19? No / Unsure 04/18/2022 8:36 AM SHAMPOO PERSON documented as of this encounter Medications at [...] 06/16/2020 09/13/2022 documented as of this encounter Procedure Notes * Wendy Keyes MD - 04/18/2022 7:47 PM CSTAssociated Order(s): EMG WITH NERVE CONDUCTION [place], [place] [address] EMG/NCS CSN: [id number] REASON FOR REFERRAL This patient is a 52-year-old woman, who was referred to electrodiagnostic laboratory for evaluation of pain and paresthesias in her right upper extremity, particularly region of the neck. SUMMARY OF FINDINGS The right median motor nerve conduction study recorded over abductor pollicis brevis revealed low normal CMAP amplitude, mildly prolonged distal motor latency, and normal conduction velocity. The right ulnar motor nerve conduction study recorded over abductor digiti minimi was normal. The right median and the right ulnar antidromic sensory nerve conduction studies recorded over digits 2 and 5, respectively, revealed slowed conduction velocity of the median nerve. The right median and right radial antidromic sensory nerve conduction studies revealed significant difference between the peak latencies of the median and radial nerves of 0.73 milliseconds, while normal is less than 0.4 milliseconds. The conduction velocity of the median nerve was slowed. The right median and right ulnar orthodromic mixed nerve conduction studies revealed prolonged peaklatency of the median nerve and significant difference within the peak latencies of the median and ulnar nerves of 1.15 milliseconds, while normal is less than 0.3 milliseconds. EMG of the right abductor pollicis brevis, 1st dorsal interosseus, extensor digitorum communis was normal. EMG of the right triceps brachii revealed evidence of chronic denervation. EMG of the right deltoid was normal. INTERPRETATION/CONCLUSION This study is abnormal and it revealed several electrodiagnostic abnormalities: There is an electrodiagnostic evidence compatible with the right carpal tunnel syndrome, which is moderate in severity. 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 There is no evidence of active denervation in any of the muscles examined, which rules out acute cervical radiculopathy based on the electrodiagnostic criteria. However, a correlation with an imaging study of the cervical spine may help explain chronic denervation in the triceps brachii. There is no electrodiagnostic evidence to suggest ulnar neuropathy. KK:MEDQ DID: [id number] Dictated by: Wendy Keyes MD POO PERSON documented in this encounter Miscellaneous Notes * Result Encounter Note - Barbara Graham NP - 04/18/2022 8:30 AM SHAMPOO PERSON Please call patient and let her know [...] to schedule your follow up visit with [facility]. If you have not received a call within one business day, please call [phone] or , Sunday through Sunday between 8 a.m. and 5 p.m. To schedule your appointment. POO PERSON documented in this encounter Plan of Treatment Upcoming Encounters Date Type Department Care Team (Late st Contact Info) Description 11/24/2024 9:30 AM CDT Office Visit [facility] Internal Medicine Medical [place] A [place] [address] [facility] [address] [address] Melani Franklin, DO [address] [facility] [address] [place] [address] documented as of this encounter Procedures Procedure Name Priority Date/Time Associated Diagnosis Comments EMG WITH NERVE CONDUCTION Routine 04/18/2022 7:47 PM SHAMPOO PERSON Paresthesia of finger documented in this encounter Results * EMG WITH NERVE CONDUCTION (04/18/2022 7:47 PM SHAMPOO PERSON) Narrative Procedure Note Wendy Keyes MD - 04/18/2022 7:47 PM CST [place], [place] [address] EMG/NCS CSN: [id number] REASON FOR REFERRAL This patient is a [...] electrodiagnostic evidence to suggest ulnar neuropathy. KK:MEDQ DID:[id number] Dictated by: Wendy Keyes MD Barbara Mauricio NP NEUROLOGY ORDER [facility] documented in this encounter Visit Diagnoses Diagnosis Paresthesia of finger documented in this encounter Care Teams Loss Prevention Agent Relationship Specialty Start Date End Date Melani Franklin DO [address] [facility] [address] [place] [address] PCP - General Internal Medicine 01/02/17 documented as of this encounter
--- OUTSIDE RECORDS SUMMARY | 2024-02-21 16:34 | XMS_ITS | Encounter Summary ---
Author Organization [facility] Address [address] [place] [address] Care Team Providers Care Financial Analyst Name Role Phone Melani Franklin DO Primary Care Provider [phone] Encounter Details Date Type Department Care Team (Latest Contact Info) Description 06/08/2021 3:21 PM CDT - 06/08/2021 11:59 PM CDT Hospital Encounter [facility] Imaging Services Medical [place] A [address] [place] [address] Michelle Temple, MEHRAN [address] [facility] [address] [place] [address] Discharge Disposition: Home or Self Care Social [...] PM CDT documented as of this encounter Medications at Time of Discharge Medication Sig Dispensed Refills Start Date End Date cetirizine (ZyrTEC) 10 mg tablet Take 10 mg by mouth daily. RESVERATROL ORAL Take by mouth daily. albuterol sulfate 90 mcg/Actuation inhaler Take 2 Puffs by inhalation every 6 hours as needed for Shortness of Breath. 8.5 Gram 06/08/2021 08/03/2021 benzonatate (TESSALON) 100 mg capsuleIndications:Cou gh Take 1 Capsule (100 mg) by mouth 3 times daily as needed for Cough. 30 Capsule 06/08/2021 08/03/2021 omeprazole (PriLOSEC) 20 mg Capsule, Delayed Release(E.C.) TAKE 1 CAPSULE(20 MG) BY MOUTH DAILY(GINA ART) 90 Capsule 1 06/08/2021 01/19/2022 zolpidem (AMBIEN) 5 mg tabletIndications:Inso mnia, unspecified type TAKE 1 TO 2 TABLETS(5 TO 10 MG) BY MOUTH EVERY NIGHT NEEDED FOR INSOMNIA 30 Tablet 1 05/22/2021 07/19/2021 montelukast (SINGULAIR) 10 mg tablet TAKE 1 TABLET(10 MG) BY MOUTH DAILY AT BEDTIME 90 Tablet 1 05/08/2021 10/30/2021 cholestyramine, with sugar, (QUESTRAN) 4 gram Powder in Packet DISSOLVE CONTENTS OF 1 PACKET IN LIQUID AND DRINK BY MOUTH DAILY 90 Packet 1 03/25/2021 10/17/2021 ALPRAZolam (XANAX) 0.25 mg tabletIndications:Inso mnia, unspecified type TAKE 1 TO 2 TABLETS(0.25 TO 0.5 MG) BY MOUTH EVERY NIGHT NEEDED FOR ANXIETY OR INSOMNIA 30 Tablet 3 03/09/2021 07/05/2021 escitalopram oxalate (LEXAPRO) 20 mg tabletIndications:Mild episode of recurrent major depressive disorder TAKE 1 TABLET(20 MG) BY MOUTH DAILY 90 Tablet 3 03/04/2021 02/28/2022 valACYclovir (VALTREX) 1 gram tabletIndications:Cold sore TAKE 2 TABLETS BY MOUTH TWICE DAILY 4 Tablet 3 02/21/2021 06/24/2021 lisinopril-hydroCHLORO thiazide (ZESTORETIC) 10-12.5 mg tablet Take 1 Tablet by mouth daily. 90 Tablet 3 12/07/2020 01/09/2022 traZODone (DESYREL) 50 mg tablet Take 1-2 Tablets (50-100 mg) by mouth daily at bedtime. 60 Tablet 12/03/2020 10/12/2021 naproxen (NAPROSYN) 500 mg tablet TAKE 1 TABLET BY MOUTH TWICE DAILY 180 Tablet 06/16/2020 09/13/2022 documented as of this encounter Plan of Treatment Upcoming Encounters Date Type Department Care Team (Late st Contact Info) Description 11/24/2024 9:30 AM CDT Office Visit [facility] Internal Medicine Medical [place] A [place] [address] [facility] [address] [address] Melani Franklin, DO [address] [facility] [address] [place] [address] documented as of this encounter Procedures Procedure Name Priority Date/Time Associated Diagnosis Comments XR CHEST PA AND LATERAL 2 VW Routine 06/08/2021 3:28 PM CDT Cough documented in this encounter Results * XR CHEST PA AND LATERAL 2 VW (06/08/2021 3:28 PM CDT) Anatomical Region Laterality Modality Chest Computed Radiogr aphy 06/08/2021 3:28 PM CDT Impressions 06/08/2021 3:31 PM CDT IMPRESSION: ?? 1. Normal radiographs of the chest. DICTATION LOCATION: [address] Narrative 06/08/2021 3:31 PM CDT EXAMINATION: ??CHEST 2 VIEWS DATE: 06/08/2021 3:28 PM HISTORY: Cough. COMPARISON: ??None. FINDINGS: The lungs are clear without focal lung consolidation, pneumothorax or pleural effusion. The cardiomediastinal silhouette is normal. Procedure Note Spencer Alarcon MD - 06/08/2021 EXAMINATION: CHEST 2 VIEWS DATE: 06/08/2021 3:28 PM HISTORY: Cough. COMPARISON: None. FINDINGS: The lungs are clear without focal lung consolidation, pneumothorax or pleural effusion. The cardiomediastinal silhouette is normal. IMPRESSION: 1. Normal radiographs of the chest. DICTATION LOCATION: Location - [facility] [place] [facility] Michelle Temple NP DIAGNOSTIC IMAGING ORDERABLES documented in this encounter Visit Diagnoses Diagnosis Cough documented in this encounter Care Teams Financial Analyst Relationship Specialty Start Date End Date Melani Franklin DO [address] [address] PCP - General Internal Medicine 01/02/17 documented as of this encounter
--- OUTSIDE RECORDS SUMMARY | 2024-02-21 16:34 | XMS_ITS | Encounter Summary ---
Author Organization [facility] Address [address] [place] [address] Care Team Providers Care Manager Advertising Name Role Phone Melani Franklin DO Primary Care Provider [phone] Reason for Visit * Reason Comments Medication Refill Encounter Details Date Type Department Care Team (Late st Contact Info) Description 07/04/2021 Refill [facility] [address] [facility] [address] [place] [address] Melani Franklin, [address] [address] Insomnia, unspecified type Social History [...] Encounter - Trisha Dela Cruz RN - 07/07/2021 1:49 PM CDT Pt responded that she takes Xanax nightly. SHIRA: 06/08/21 NOV:10/12/21 LRF: 03/09/21 30 tablets with 3 refills * Telephone Encounter - Melani Franklin DO - 07/05/2021 12:45 PM CDT This was meant for short term use, please ask how often she's taking this medication since per refill history it looks like she's taking it nightly. * Telephone Encounter - Trisha Dela Cruz RN - 07/05/2021 12:17 PM CDT SHIRA: 06/24/20 NOV: 10/12/21 LRF: 03/09/21 for 30 tabs x 3 refills documented in this encounter Plan of Treatment Upcoming Encounters Date Type Department Care Team (Late st Contact Info) Description 11/24/2024 9:30 AM CDT Office Visit [facility] Internal Medicine Medical [place] [facility] [address] [facility] [address] [address] Melani Franklin DO [address] [facility] [address] [place], [place] [address] documented as of this encounter Visit Diagnoses Diagnosis Insomnia, unspecified type documented in this encounter Care Teams Manager Advertising Relationship Specialty Start Date End Date Melani Franklin DO [address] [facility] [address] [place], [place] [address] PCP - General Internal Medicine 01/02/17 documented as of this encounter
--- OUTSIDE RECORDS SUMMARY | 2024-02-21 16:34 | XMS_ITS | Encounter Summary ---
Author Organization [facility] Address [address] [place] [address] Care Team Providers Care Aerospace Assembler Name Role Phone Melani Franklin DO Primary Care Provider [phone] Reason for Visit * Reason Comments Medication Refill Encounter Details Date Type Department Care Team (Late st Contact Info) Description 08/01/2021 Refill [facility] Internal Medicine Medical [place] A [place] [address] [facility] [address] [address] Michelle Temple, BESSEMER REGULATOR [address] [facility] [address] [place] [address] Cough Social History Tobacco Use Types Packs/Day [...] Coronavirus/COVID-19? No / Unsure 01/17/2022 10:43 AM SACK CLEANING HAND documented as of this encounter Miscellaneous Notes * Telephone Encounter - Linda Ennis RN - 08/02/2021 3:03 PM CDT LRF: 06/18/21 SHIRA: 06/08/21 NOV:10/12/21 documented in this encounter Plan of Treatment Upcoming Encounters Date Type Department Care Team (Late st Contact Info) Description 11/24/2024 9:30 AM CDT Office Visit [facility] Internal Medicine Medical [place] A [facility] [address] [facility] [address] [address] Melani Franklin DO [address] [facility] [address] [place], [place] [id number] documented as of this encounter Visit Diagnoses Diagnosis Cough documented in this encounter Care Teams Aerospace Assembler Relationship Specialty Start Date End Date Melani Franklin DO [address] [facility] [address] [place] [address] PCP - General Internal Medicine 01/02/17 documented as of this encounter
--- OUTSIDE RECORDS SUMMARY | 2024-02-21 16:34 | XMS_ITS | Encounter Summary ---
Author Organization [facility] Address [address] [place] [address] Care Team Providers Care Desk Monitor Name Role Phone Melani Franklin DO Primary Care Provider [phone] Reason for Visit * Reason Onset Date Comments Medication Refill Needs Form Or Letter Filled Out 07/29/2021 ZOLPIDEM Encounter Details Date Type Department Care Team (Late st Contact Info) Description 07/29/2021 Refill [facility] Internal Medicine Medical [place] [facility] [address] [address] Michelle Temple, MEHRAN [address] [place] [address] Social History Tobacco Use Types [...] Coronavirus/COVID-19? No / Unsure 01/17/2022 10:43 AM BAG CHECKER documented as of this encounter Miscellaneous Notes * Telephone Encounter - Jael Boss Livia - 07/29/2021 3:51 PM CDT Received prior authorization request from [employer] for Zolpidem medication Submitted prior authorization through [facility] to [facility] Waitiing on response PA documented in this encounter Plan of Treatment Upcoming Encounters Date Type Department Care Team (Late st Contact Info) Description 11/24/2024 9:30 AM CDT Office Visit [facility] Internal Medicine Medical [place] [facility] [address] [address] Melani Franklin DO [address] [place], [place] [id number] documented as of this encounter Visit Diagnoses Not on filedocumented in this encounter Care Teams Desk Monitor Relationship Specialty Start Date End Date Melani Franklin DO [address] [place] [address] PCP - General Internal Medicine 01/02/17 documented as of this encounter
--- OUTSIDE RECORDS SUMMARY | 2024-02-21 16:35 | XMS_ITS | Encounter Summary ---
Author Organization [facility] Address [address] Attn: [place] [address] Care Team Providers Care Youth Counselor Name Role Phone Melani Franklin DO Primary Care Provider [phone] Encounter Details Date Type Department Care Team (Latest Contact Info) Description 07/02/2020 Travel Social History Tobacco Use Types Packs/Day Years Used Date Smoking Tobacco: Former Cigarettes Q uit: 03/05/2007 Smokeless Tobacco: Never Alcohol Use Standard Drinks/Week Comments Yes 2 (1 standard drink = 0.6 oz pur [...] have Coronavirus / COVID-19? No / Unsure 07/02/2020 9:10 AM CDT documented as of this encounter Plan of Treatment Upcoming Encounters Date Type Department Care Team (Late st Contact Info) Description 11/24/2024 9:30 AM CDT Office Visit [facility] Internal Medicine Medical [place] [facility] [address] [address] Melani Franklin DO [address] [place] [address] documented as of this encounter Visit Diagnoses Not on filedocumented in this encounter Care Teams Youth Counselor Relationship Specialty Start Date End Date Melani Franklin DO [address] [place] [address] PCP - General Internal Medicine 01/02/17 documented as of this encounter
--- OUTSIDE RECORDS SUMMARY | 2024-02-21 16:35 | XMS_ITS | Encounter Summary ---
Author Organization [facility] Address [address] Attn: [place] [address] Care Team Providers Care Dye Colorist Dyer Name Role Phone Melani Franklin DO Primary Care Provider [phone] Encounter Details Date Type Department Care Team (Latest Contact Info) Description 06/08/2021 Travel Social History Tobacco Use Types Packs/Day [...] Description 11/24/2024 9:30 AM CDT Office Visit [facility] Internal Medicine Medical [place] [facility] [address] [address] Melani Franklin DO [address] [place] [address] documented as of this encounter Visit Diagnoses Not on filedocumented in this encounter Care Teams Dye Colorist Dyer Relationship Specialty Start Date End Date Melani Franklin DO [address] [place] [address] PCP - General Internal Medicine 01/02/17 documented as of this encounter
--- OUTSIDE RECORDS SUMMARY | 2024-02-21 16:35 | XMS_ITS | Encounter Summary ---
Author Organization [facility] Address [address] [place] [address] Care Team Providers Care Unit Manager [employer] Name Role Phone Melani Franklin DO Primary Care Provider [phone] Reason for Visit * Auth/Cert Specialty Diagnoses / Procedures Referred By Tyrone baxter Referred To Contact Perioperative Diagnoses Screening for colon cancer Procedures COLONOSCOPY [facility] [address] [place] [address] Referral ID Status Reason Start Date Expiration Date Visits Re quested Visits Authorized [id number] 1 1 Encounter Details Date Type Department Care Team (Latest Contact Info) Description 08/26/2020 11:14 AM CDT - 08/26/2020 1:03 PM CDT Hospital Encounter [facility] [address] [place] [address] Barrington Bueno MD [address] [facility] [place] [address] Screening for colon cancer Discharge Disposition: Home or Self Care Social [...] have Coronavirus / COVID-19? No / Unsure 08/26/2020 11:16 AM CDT documented as of this encounter Last Filed Vital Signs Vital Sign Reading Time Taken Comments Blood Pressure 116/84 08/26/2020 12:46 PM CDT Pulse 80 08/26/2020 12:46 PM CDT Temperature 36.7 ??C (98 ??F) 08/26/2020 12:36 PM CDT Respiratory Rate 17 08/26/2020 12:46 PM CDT Oxygen Saturation 100% 08/26/2020 12:46 PM CDT Inhaled Oxygen Concentration - - Weight 69.9 kg (154 lb 3.2 oz) 08/26/2020 11:40 AM CDT Height 157.5 cm (5' 2 ) 08/26/2020 11:40 AM CDT Body Mass Index 28.2 08/26/2020 11:40 AM CDT documented in this encounter Discharge Instructions * Discharge Instructions* Barrington Bueno MD - 08/26/2020 12:27 PM CDT Instructions after Colonoscopy After a colonoscopy it is normal to experience some minor ???gas pains?? because of the air that was introduced to your colon during the procedure. Tylenol will help to relieve any discomfort. You may not have a bowel movement for 1-3 days because of the colonoscopy prep. This is normal. DO NOT drink alcohol until tomorrow. DO NOT drive, operate machinery, make critical decisions until tomorrow. Limit activities that require coordination or balance for 24 hours. Resume your previous diet unless otherwise instructed. Resume your previous medications unless otherwise instructed. Notify your physician if you develop any of the following: ??? Severe pain ??? Fever of 101 degrees F ??? Large amount of bleeding, passing large blood clots, or black tarry stools ??? Redness or soreness at the IV site If tissue samples were taken during the procedure, you will notified by phone or mail with the results. If you have not been notified within two weeks, please call the office. Office Phone: [facility] [phone] Exchange: documented in this encounter Medications at Time of Discharge Medication Sig Dispensed Refills Start Date End Date cetirizine (ZyrTEC) 10 mg tablet Take 10 mg by mouth daily. RESVERATROL ORAL Take by mouth daily. naproxen (NAPROSYN) 500 mg tablet TAKE 1 TABLET BY MOUTH TWICE DAILY 180 Tablet 06/16/2020 09/13/2022 cholestyramine, with sugar, (QUESTRAN) 4 gram Powder in Packet DISSOLVE CONTENTS OF 1 PACKET IN LIQUID AND TAKE BY MOUTH DAILY 60 Packet 3 06/03/2020 03/25/2021 zolpidem (AMBIEN) 5 mg tabletIndications:Insom adis, unspecified type TAKE 1 TABLET BY MOUTH EVERY NIGHT NEEDED FOR INSOMNIA 30 Tablet 5 05/12/2020 11/05/2020 SUMAtriptan (IMITREX) 100 mg tablet TAKE 1 TABLET BY MOUTH AT ONSET OF MIGRAINE. MAY REPEAT AFTER 2 HOURS IF HEADACHE RETURNS. NOT TO EXCEED 2 TABLETS IN 24 HOURS 27 Tablet 3 03/26/2020 11/16/2020 escitalopram oxalate (LEXAPRO) 20 mg tabletIndications:Mild episode of recurrent major depressive disorder TAKE 1 TABLET(20 MG) BY MOUTH DAILY 90 Tablet 3 03/19/2020 03/04/2021 lisinopril-hydroCHLOROt hiazide (ZESTORETIC) 10-12.5 mg tablet TAKE 1 TABLET BY MOUTH DAILY 90 Tablet 3 10/20/2019 12/07/2020 valACYclovir (VALTREX) 1 gram tabletIndications:Cold sore TAKE 2 TABLETS BY MOUTH TWICE DAILY 4 Tablet 3 06/19/2019 02/21/2021 documented as of this encounter H&P Notes * Barrington Bueno MD - 08/26/2020 12:06 PM CDT GI H&P PRE PROCEDURE EVALUATION - Colonoscopy DATE: 08/26/2020 HPI: This is a 50 y.o. female patient scheduled for Colonoscopy for average risk screening. Patient Active Problem List Diagnosis Date Noted ??? Mild episode of recurrent major depressive disorder 06/24/2020 ??? Benign hypertension 01/02/2017 ??? Postcholecystectomy diarrhea 01/02/2017 ??? Migraine with aura and without status migrainosus, not intractable 01/02/2017 ??? Insomnia 01/02/2017 Past Medical History: Diagnosis Date ??? Asthma in the past ??? Benign hypertension 01/02/2017 ??? GERD (gastroesophageal reflux disease) ??? Hyperlipidemia ??? Insomnia 01/02/2017 ??? Migraine with aura and without status migrainosus, not intractable 01/02/2017 ??? Postcholecystectomy diarrhea 01/02/2017 Past Surgical History: Procedure Laterality Date ??? HX ABDOMINOPLASTY ??? HX BILIARY DRAINAGE CATHETER PLACEMENT W/ BILE DUCT TUBE CHANGE ??? HX BREAST AUGMENTATION ??? HX COCCYGECTOMY ??? LAP CHOLECYSTECTOMY Medications Prior to Admission Medication Sig Dispense Refill Last Dose ??? naproxen (NAPROSYN) 500 mg tablet TAKE 1 TABLET BY MOUTH TWICE DAILY (Patient taking differently: Take 500 mg by mouth 2 times daily as needed. ) 180 Tablet 0 08/09/2020 ??? clobetasoL (TEMOVATE) 0.05 % Solution Apply to affected area 2 times daily. 50 mL 0 ??? cholestyramine, with sugar, (QUESTRAN) 4 gram Powder in Packet DISSOLVE CONTENTS OF 1 PACKET INLIQUID AND TAKE BY MOUTH DAILY 60 Packet 3 08/26/2020 at Unknown time ??? zolpidem (AMBIEN) 5 mg tablet TAKE 1 TABLET BY MOUTH EVERY NIGHT NEEDED FOR INSOMNIA 30 Tablet 5 08/25/2020 at Unknown time ??? SUMAtriptan (IMITREX) 100 mg tablet TAKE 1 TABLET BY MOUTH AT ONSET OF MIGRAINE. MAY REPEAT AFTER 2 HOURS IF HEADACHE RETURNS. NOT TO EXCEED 2 TABLETS IN 24 HOURS 27 Tablet 3 08/09/2020 ??? escitalopram oxalate (LEXAPRO) 20 mg tablet TAKE 1 TABLET(20 MG) BY MOUTH DAILY 90 Tablet 3 08/26/2020 at Unknown time ??? lisinopril-hydroCHLOROthiazide (ZESTORETIC) 10-12.5 mg tablet TAKE 1 TABLET BY MOUTH DAILY 90 Tablet 3 08/26/2020 at Unknown time ??? glucosamine/chondr evans A sod (OSTEO BI-FLEX ORAL) Take by mouth daily. 08/24/2020 ??? cetirizine (ZyrTEC) 10 mg tablet Take 10 mg by mouth daily. 08/26/2020 at Unknown time ??? ALipoic Acid/Bioflav/Mv/Gr Tea (ULTRA FRANCOIS ORAL) Take by mouth daily. 08/23/2020 ??? RESVERATROL ORAL Take by mouth daily. 08/24/2020 ??? COLLAGEN MISC by Misc.(Non-Drug; Combo Route) route daily. 08/24/2020 ??? NORTREL 1/35, 28, 1-35 mg-mcg tablet Take 1 Tablet by mouth daily. 3 08/25/2020 at Unknown time ??? valACYclovir (VALTREX) 1 gram tablet TAKE 2 TABLETS BY MOUTH TWICE DAILY (Patient taking differently: Take 1,000 mg by mouth 1 time daily as needed. ) 4 Tablet 3 > Month at Unknown time Allergies Allergen Reactions ??? Morphine Headache Social History Tobacco Use ??? Smoking status: Former Smoker Quit date: 03/05/2007 Years since quittin.4 ??? Smokeless tobacco: Never Used Substance Use Topics ??? Alcohol use: Yes Alcohol/week: 7.0 standard drinks Types: 7 Standard drinks or equivalent per week Family History Problem Relation Name Age of Onset ??? Stroke Father ??? Healthy Mother ??? Colon Cancer Neg Hx Head: Normal Lungs: Clear to auscultation bilaterally Airway: No apparent abnormalities Heart: Regular rate and rhythm Abdomen: soft, nontender, nondistended, normal bowel sounds Neurologic: alert and oriented x 3 ASA Classification: per anesthesiologist Informed Consent: The patient was informed of the indications for the procedure, the risks/benefits and the alternatives, and agreed to proceed. In particular, the patient was informed of the risk of perforation/(1:1000), medication side effect, infection, a missed lesion, or incomplete examination. In the case of dilatation, the patient was informed of the risk of perforation (1 to 5%). There was nothing onhistory or physical examination precluding the procedure. IMPRESSION & PLAN: Indications for procedure as noted in HPI. Will proceed with the above mentioned procedure(s) as scheduled. Barrington Bueno MD documented in this encounter Procedure Notes * Barrington Bueno MD - 08/26/2020 12:31 PM CDTAssociated Order(s): COLONOSCOPY REPORT [facility] Endoscopy Patient Name: Jody Mason [...] signed electronically. Number of Addenda: [address]; [place] [address] * Giana Merchant RN - 08/20/2020 2:30 PM CDT [facility] Nurse Assessment Patient: Jody Mason : 1970 Endoscopist: Surgeon(s): Barrington Bueno MD Upcoming Procedure: Procedure to be Performed: Procedure(s): COLONOSCOPY Procedure Date/Time: 08/26/2020 at 1200 Diagnosis/Indication for procedure: Pre-Op Diagnosis Codes: * Screening for colon cancer [Z12.11] [facility] Referring Physician: Melani Franklin Patient's BMI: Body mass index is 28.17 kg/m??. Is patient a candidate for offsite location? yes Medications Type of prep given: CSP Anticoagulants: no NSAIDS Relevant prior procedure/pathology: Procedure: colon Physician: ? Date: 10 yrs Location: [facility] Pathology: NONE Past Surgical History: Past Surgical History: Procedure Laterality Date ??? HX ABDOMINOPLASTY ??? HX BILIARY DRAINAGE CATHETER PLACEMENT W/ BILE DUCT TUBE CHANGE ??? HX BREAST AUGMENTATION ??? HX COCCYGECTOMY ??? LAP CHOLECYSTECTOMY Past Medical History: Past Medical History: Diagnosis Date ??? Asthma in the past ??? Benign hypertension 01/02/2017 ??? GERD (gastroesophageal reflux disease) ??? Hyperlipidemia ??? Insomnia 01/02/2017 ??? Migraine with aura and without status migrainosus, not intractable 01/02/2017 ??? Postcholecystectomy diarrhea 01/02/2017 No current facility-administered medications on file prior to encounter. Current Outpatient Medications on File Prior to Encounter Medication Sig Dispense Refill ??? naproxen (NAPROSYN) 500 mg tablet TAKE 1 TABLET BY MOUTH TWICE DAILY (Patient taking differently: Take 500 mg by mouth 2 times daily as needed. ) 180 Tablet 0 ??? clobetasoL (TEMOVATE) 0.05 % Solution Apply to affected area 2 times daily. 50 mL 0 ??? cholestyramine, with sugar, (QUESTRAN) 4 gram Powder in Packet DISSOLVE CONTENTS OF 1 PACKET INLIQUID AND TAKE BY MOUTH DAILY 60 Packet 3 ??? zolpidem (AMBIEN) 5 mg tablet TAKE 1 TABLET BY MOUTH EVERY NIGHT NEEDED FOR INSOMNIA 30 Tablet 5 ??? SUMAtriptan (IMITREX) 100 mg tablet TAKE 1 TABLET BY MOUTH AT ONSET OF MIGRAINE. MAY REPEAT AFTER 2 HOURS IF HEADACHE RETURNS. NOT TO EXCEED 2 TABLETS IN 24 HOURS 27 Tablet 3 ??? escitalopram oxalate (LEXAPRO) 20 mg tablet TAKE 1 TABLET(20 MG) BY MOUTH DAILY 90 Tablet 3 ??? lisinopril-hydroCHLOROthiazide (ZESTORETIC) 10-12.5 mg tablet TAKE 1 TABLET BY MOUTH DAILY 90 Tablet 3 ??? valACYclovir (VALTREX) 1 gram tablet TAKE 2 TABLETS BY MOUTH TWICE DAILY (Patient taking differently: Take 1,000 mg by mouth 1 time daily as needed. ) 4 Tablet 3 ??? glucosamine/chondr evans A sod (OSTEO BI-FLEX ORAL) Take by mouth daily. ??? cetirizine (ZyrTEC) 10 mg tablet Take 10 mg by mouth daily. ??? ALipoic Acid/Bioflav/Mv/Gr Tea (ULTRA FRANCOIS ORAL) Take by mouth daily. ??? RESVERATROL ORAL Take by mouth daily. ??? COLLAGEN MISC by Misc.(Non-Drug; Combo Route) route daily. ??? NORTREL 1/35, 28, 1-35 mg-mcg tablet Take 1 Tablet by mouth daily. 3 documented in this encounter OR Notes * Jackie-OP - Giana Merchant RN - 08/20/2020 2:30 PM CDT Routine Pre-Anesthesia Protocol for GI Lab Procedures [facility] Approved by: [facility] - Medical Executive Committee Approval Date: 07/22/2020 ORDERS ARE ENTERED ???PER PROTOCOL?? Enter the protocol in the patient???s electronic health record using Talkbitse: .anestprotocolgilab NURSING ORDERS: Monitoring: o Obtain and record vital signs o Continuous vital signs (Non-invasive blood pressure, pulse oximetry and cardiac monitoring) for all inpatients and all patients currently taking beta-blockers o Place #20 gauge IV in non-dominant, non-operative or not otherwise excluded upper extremity o Contact responsible anesthesiologist if recommending use of a #22 gauge IV o See medication section for local Anesthetic to use to initiate IV LABORATORY ORDERS: Screening Protocol: o Urine bHCG (serum if necessary) Female of menses, or age > 12 y/o Point of Care Testing: FOR PATIENTS WITH A HISTORY OF DIABETES, RECEIVING INSULIN, OR EXHIBITING SIGNS AND SYMPTOMS OF HYPOGLYCEMIA. o POC glucose on initial assessment o POC glucose every 4 hours if NPO o POC glucose within 30 minutes of discharge or transfer to another unit (the time based intra-procedure POC check may be deferred during short procedures at the discretion of the provider) o POC for any patient exhibiting signs and symptoms of hypoglycemia o If POC Glucose results are critical, do not delay treatment. If appropriate, may confirm POC with: Nursing Only [id number] (this lab can be obtained at no cost to the patient when confirming a criticalhigh or critical low POC glucose MEDICATION ORDERS: o Local Anesthetic to use to initiate IV line: Lidocaine 2% 0.3mL intradermal ONE TIME to numb areaof IV catheter insertion PRN. IV Fluid - Adult patients (age 18 years or greater): o Lactated ringer???s solution to infuse at 125mL/hr, may discontinue upon discharge from procedurearea o Patient specific modification as indicated: ? If patient is found to have a serum creatinine >2 or history of renal failure, RN may change fluid to NS at 10ml/hr Contact provider to consider dextrose containing fluids for: o NPO patients who have received PO or injectable antihyperglycemic agents and glucose is less [id number] mg/dl o NPO patients who have NOT received PO or injectable antiHYPERglycemic agents and POC glucose is less than 70 mg/dL. o When receiving report on an inpatient, confirm if patient is receiving dextrose containing fluidsto prevent hypoglycemia. Communicate with the anesthesiologist and request glucose containing fluids be continued or added to intraoperative Fluids. o Any time a patient???s enteral or parenteral nutrition is interrupted for longer than four hours and POC glucose or serum glucose is less than 100 mg/dL contact provider for dextrose containing fluids o Notify provider for any POC glucose or serum glucose less than 70 mg/dL. RESCUE MEDICATION ORDERS - entered by the Pharmacist animal doctor RESCUE ORDERS - entered by the Pharmacist or the textile machine operator Orders Patient has IV access and UNCONCIOUS, UNWILLING to swallow or NPO Glucose Level Treatment 40-69 mg/dL Dextrose 50% IV, give 12.5 grams (25 ml), IV push ONE TIME Less than 40 mg/dL Dextrose 50% IV, give 25 grams (50 ml), IV push ONE TIME Patient has no IV access, patient UNCONCIOUS, unable to swallow or NPO Glucose Level Treatment Less than 70 mg/dL Administer IM GLUCAGON 1 mg one time. After administration of glucagon is complete insert peripheral IV and notify physician. Patient is CONCIOUS and able to swallow and no longer NPO Glucose Level Treatment 40-69 mg/dL Give 15 gram food choice such as: Regular soda (6 oz), Apple juice (4 oz), or 1/2 cup regular jello Less Than 40 mg/dL Give 30 gram food choice such as: Regular soda (12 oz), Apple juice (8 oz), or 1cup regular jello Nursing Communication for Subsequent Care: ??? Check POC glucose 15 minutes after rescue. ??? Recheck and retreat every 15 minutes until blood glucose is greater than or equal to 70 mg/dL. ??? Once POC glucose result is 70 mg/dL or greater: o Check POC glucose every 30 minutes for 3 occurrences o Resume previous POC Glucose check orders. After Hypoglycemic Symptoms Subside, Give a Snack or Ask Provider for Dextrose Containing Fluids SNACK CHOICES: 1 carb and 1 fat servin saltine crackers and 2 teaspoons peanut butter; or 1 slice of bread and 2 teaspoons peanut butter; or 1 oz cheese and 6 saltine crackers; or 1 cup 2% milk and 6 saltine crackers. documented in this encounter Plan of Treatment Upcoming Encounters Date Type Department Care Team (Late st Contact Info) Description 11/24/2024 9:30 AM CDT Office Visit [facility] Internal Medicine Medical [place] [facility] [address] [phone] Melani Franklin, DO [address] [facility] [address] [place] [address] documented as of this encounter Procedures Procedure Name Priority Date/Time Associated Diagnosis Comments COLONOSCOPY REPORT 08/26/2020 12 :31 PM CDT PATHOLOGY Pathology 08/26/2020 12:21 PM CDT Screening for colon cancer COLONOSCOPY 08/26/2020 12:00 PM CDT Screening for colon cancer POC , URINE Routine 08/26/2020 11:51 AM CDT documented in this encounter Results * COLONOSCOPY REPORT (08/26/2020 12:31 PM CDT) Narrative Procedure Note Barrington Bueno MD - 08/26/2020 12:31 PM CDT [facility] Endoscopy Patient Name: Jody Mason [...] signed electronically. Number of Addenda: [address]; [place] [address] Barrington Bueno MD GI PROCEDURE ORDERAB LES * PATHOLOGY (08/26/2020 12:21 PM CDT) CASE REPORT Surgical Pathology Report ? Case: [id number] ? Authorizing Provider: ??Barrington Bueno MD ? Collected: ? 08/26/2020 12:21 PM ? Ordering Location: ? [facility] [address] ??Received: ?08/26/2020 02:13 PM ? Pathologist: ? Steve Sánchez MD ? Specimens: ?? A) - Colon, transverse, polyps x2 ? B) - Rectum, polyp ? 08/29/2020 12:25 PM [facility] FINAL DIAGNOSIS A. Colon, transverse, polyps, biopsy: - Sessile serrated adenoma, fragments of. B. Colon, rectum, polyp, biopsy: - Colonic mucosa with hyperplastic changes. 08/29/2020 12:25 PM [facility] S DESCRIPTION The specimens are received in 2 containers, each labeled Jody Mason : Received in the first container labeled colon, transverse polyps x2 are multiple (greater than 10) pieces of irregular, salas to salas-pink tissue ranging from 0.1 to 1.1 cm. The base of one polyp is inked blue and the tissue is bisected. The specimen is entirely submitted labeled A1. Received in the second container labeled rectum polyp is a 0.2 cm piece of polypoid, salas-red tissue. The specimen is submitted in toto labeled B1. ALG 08/29/2020 12:25 PM [facility] MICROSCOPIC DESCRIPTION The slides are labeled [id number] and Jody Mason. The transverse colon polyp shows multiple fragments of a mucosal proliferation with architectural serrations that extend to the base of glandular crypts and with branching, blunted, and/or and dilated crypts that are irregular in shape or contour. Conventional dysplasia and malignancy are not identified. The rectal polyp shows a polypoid fragment of colonic mucosa with mild hyperplastic changes. Dysplasia, fully developed features of a serrated polyp, and malignancy are not identified. Additional levels were reviewed. 08/29/2020 12:25 PM [facility] OPERATIVE PROCEDURE 1: COLONOSCOPY 08/29/2020 12:25 PM [facility] CLINICAL INFORMATION A Colon Polyp(s). Adenomatous vs hyperplastic vs other. Colon Polyp(s). Adenomatous vs hyperplastic vs other. Screening for colon cancer [Z12.11] Z12.11-Screening for colon cancer 08/29/2020 12:25 PM [facility] COMMENT Special stain and/or immunohistochemical results are interpreted with controls that demonstrate appropriate staining reactions. Note on use of immunocytochemistry reagents: This test was developed and its performance characteristics determined by [facility], Department of Laboratory Medicine. It has not been cleared or approved by the U.S. Food and Drug Administration. The FDA has determined that such clearance or approval is not necessary. The test is used for clinical purposes. It should not be regarded as investigational or for research. This laboratory is certified to perform high complexity testing. Frozen section/operating room consultation, gross examination and dissection, and case sign out may have been performed in part or completely in the following laboratories: [facility], CLIA #[id number] [address] [place] [address] [facility], CLIA #[id number] [address] [place] [address] [facility], CLIA #[id number] [address] [place] [address] 08/29/2020 12:25 PM CDT [facility] Tissue TRANSVERSE COLON STRUCTURE / Unknown Collection / Unknown 08/26/2020 12:21 PM CDT 08/26/2020 2:13 PM CDT Comment:Colon Polyp(s). Vinh omatous vs hyperplastic vs other. Tissue specimen (specimen) ENTIRE RECTUM / Unknown 08/26/2020 12:28 PM CDT 08/26/2020 2:13 PM CDT Comment:Colon Polyp(s). Vinh omatous vs hyperplastic vs other. Barrington Bueno MD PATHOLOGY/CYTOLOGY O RDERABLES [facility] CLIA# [id number] [address] [place] [address] * POC , URINE (08/26/2020 11:51 AM CDT) HCG QUAL URINE Negative Negative 08/26/2020 11:51 AM CDT [facility] CONCESSION SUPERVISOR NAME POC LIBIA, DARION 08/26/2020 11:51 AM CDT [facility] Urine 08/26/2020 11:5 1 AM CDT 08/26/2020 11:53 AM CDT Barrington Bueno MD POINT OF CARE TESTIN [facility]# [id number] [address] [place] [id number] documented in this encounter Visit Diagnoses Diagnosis Screening for colon cancer Special screening for malignant neoplasms, colon documented in this encounter Administered Medications Inactive Administered Medications - up to 3 most recent administrations Medication Order MAR Action Action Date Dose Rate Site lactated ringers infusion IV, at 125 mL/hr, PRE-PROCEDURE CONTINUOUS, Starting on Tiffany 08/26/20 at 1145, Until Tiffany 08/26/20 at 1504, Routine, Pre-Procedure Continue from Pre-Op 08/26/2020 12:02 PM CDT 125 mL/hr New Bag 08/26/2020 11:53 AM CDT 125 mL/hr documented in this encounter Active and Recently Administered Medications Times are shown in CDT. Continuous Medication Order 08/24/2020 08/25/2020 08/26/2020 lactated ringers infusion IV, at 125 mL/hr, PRE-PROCEDURE CONTINUOUS, Starting on Tiffany 08/26/20 at 1145, Until Tiffany 08/26/20 at 1504, Routine, Pre-Procedure 1153 (New Bag - Prov ider: Pia Aviles RN)1202 (Continue from Pre-Op - Provider: Barrington Bueno MD)1241 (Stopped - Provider: Suni Aguillon RN) documented in this encounter Care Teams Unit Manager [employer] Relationship Specialty Start Date End Date Melani Franklin DO [address] [facility] [place], [place] [id number] PCP - General Internal Medicine 01/02/17 documented as of this encounter
--- OUTSIDE RECORDS SUMMARY | 2024-02-21 16:35 | XMS_ITS | Encounter Summary ---
Author Organization [facility] Address [address] [place] [address] Care Team Providers Care Pad Making Machine Operator Name Role Phone Melani Franklin DO Primary Care Provider [phone] Encounter Details Date Type Department Care Team ([facility] Contact Info) Description 03/22/2021 Abstract [facility] Internal Medicine [facility] [address] [facility] [address] [place] [address] Melani Franklin, DO [address] [facility] [address] [place] [address] Social History Tobacco Use Types Packs/Day [...] Visit [facility] Internal Medicine [facility] [address] [facility] [address] [place] [address] Melani Franklin, DO [address] [facility] [address] [place] [address] documented as of this encounter Visit Diagnoses Not on filedocumented in this encounter Care Teams Pad Making Machine Operator Relationship Specialty Start Date End Date Melani Franklin DO [address] [facility] [address] [place] [address] PCP - General Internal Medicine 01/02/17 documented as of this encounter
--- OUTSIDE RECORDS SUMMARY | 2024-02-21 16:35 | XMS_ITS | Encounter Summary ---
Author Organization [facility] Address [address] [place] [address] Care Team Providers Care Life Insurance Agent Name Role Phone Melani Franklin DO Primary Care Provider [phone] Reason for Visit * Reason Comments Medication Refill Encounter Details Date Type Department Care Team (Late st Contact Info) Description 03/03/[address] [facility] Internal Medicine [facility] [address] [facility] [address] [place] [address] Melani Franklin, [address] [address] Mild episode of recurrent major [...] encounter Miscellaneous Notes * Telephone Encounter - Janine Benito LPN - 03/04/2021 7:31 AM CST Mail to patient: Pt needs call back: Last refilled:03/19/20 Quantity given:90 Number of refills:3 Last appointment:11/05/20 Next appointment:none OR FOREMAN documented in this encounter Plan of Treatment Upcoming Encounters Date Type Department Care Team (Late st Contact Info) Description 11/24/2024 9:30 AM CDT Office Visit [facility] Internal Medicine Medical [place] [facility] [address] [facility] [address] [address] Melani Franklin DO [address] [facility] [address] [place] [address] documented as of this encounter Visit Diagnoses Diagnosis Mild episode of recurrent major depressive disorder documented in this encounter Care Teams Life Insurance Agent Relationship Specialty Start Date End Date Melani Franklin DO [address] [facility] [address] [place] [address] PCP - General Internal Medicine 01/02/17 documented as of this encounter
--- OUTSIDE RECORDS SUMMARY | 2024-02-21 16:35 | XMS_ITS | Encounter Summary ---
Author Organization [facility] Address [address] [facility] [address] Attn: [place] [address] Care Team Providers Care Inspector Receiving Name Role Phone Melani Franklin DO Primary Care Provider [phone] Encounter Details Date Type Department Care Team (Latest Contact Info) Description 08/13/2020 Travel Social History Tobacco Use Types Packs/Day [...] have Coronavirus / COVID-19? No / Unsure 08/13/2020 12:39 PM CDT documented as of this encounter Plan of Treatment Upcoming Encounters Date Type Department Care Team (Late st Contact Info) Description 11/24/2024 9:30 AM CDT Office Visit [facility] Internal Medicine Medical [place] A [facility] [address] [facility] [address] [address] Melain Franklin DO [address] [facility] [address] [place] [address] documented as of this encounter Visit Diagnoses Not on filedocumented in this encounter Care Teams Inspector Receiving Relationship Specialty Start Date End Date Melani Franklin DO [address] [facility] 189 [place] [address] PCP - General Internal Medicine 01/02/17 documented as of this encounter
--- OUTSIDE RECORDS SUMMARY | 2024-02-21 16:35 | XMS_ITS | Encounter Summary ---
Author Organization [facility] Address [address] [facility] Attn: [place] [address] Care Team Providers Care Carbon Cutter Name Role Phone Melani Franklin DO Primary Care Provider [phone] Encounter Details Date Type Department Care Team (Latest Contact Info) Description 11/04/2020 Travel Social History Tobacco Use Types Packs/Day [...] have Coronavirus / COVID-19? No / Unsure 11/04/2020 8:39 AM CDT documented as of this encounter Plan of Treatment Upcoming Encounters Date Type Department Care Team (Late st Contact Info) Description 11/24/2024 9:30 AM CDT Office Visit [facility] Internal Medicine Medical [place] A [facility] [address] [facility] [address] [address] Melani Franklin DO [address] [facility] [address] [place] [address] documented as of this encounter Visit Diagnoses Not on filedocumented in this encounter Care Teams Carbon Cutter Relationship Specialty Start Date End Date Melani Franklin DO [address] [facility] 189 [place] [address] PCP - General Internal Medicine 01/02/17 documented as of this encounter
--- OUTSIDE RECORDS SUMMARY | 2024-02-21 16:35 | XMS_ITS | Encounter Summary ---
Author Organization [facility] Address [address] [place] [address] Care Team Providers Care Chicken Tender Name Role Phone Melani Franklin DO Primary Care Provider Reason for Visit * Reason Comments Medication Refill Encounter Details Date Type Department Care Team (Late st Contact Info) Description 02/18/2021 Refill [facility] Internal Medicine Medical [place] A [facility] [address] [facility] [address] [address] Felicia Arevalo, [facility] [address] [place] [address] Cold sore Social History Tobacco Use Types [...] encounter Miscellaneous Notes * Telephone Encounter - Nikki Shaw - 02/21/2021 7:21 AM CST Mail to patient: Pt needs call back: Last refilled: 06/19/19 Quantity given: 4 Number of refills: 3 Last appointment: 11/05/20 Next appointment: ER HAND documented in this encounter Plan of Treatment Upcoming Encounters Date Type Department Care Team (Late st Contact Info) Description 11/24/2024 9:30 AM CDT Office Visit [facility] Internal Medicine Medical [place] A [facility] [address] [facility] [address] [address] Melani Franklin DO [address] [facility] [address] [place], [place] [address] documented as of this encounter Visit Diagnoses Diagnosis Cold sore Herpes simplex without mention of complication documented in this encounter Care Teams Chicken Tender Relationship Specialty Start Date End Date Melani Franklin DO [address] [facility] [address] [place] [address] PCP - General Internal Medicine 01/02/17 documented as of this encounter
--- OUTSIDE RECORDS SUMMARY | 2024-02-21 16:35 | XMS_ITS | Encounter Summary ---
Author Organization [facility] Address [address] [place] [address] Care Team Providers Care Drapery Counselor Name Role Phone Melani Franklin DO Primary Care Provider Reason for Visit * Reason Onset Date Comments Medication Refill 11/05/2020 Encounter Details Date Type Department Care Team (Late st Contact Info) Description 11/05/2020 Refill [facility] Internal Medicine Medical [place] A [facility] [address] [facility] [address] [place] [address] Felicia Arevalo, [facility] [address] [place] [id number] Insomnia, unspecified type Social History Tobacco Use [...] Office Visit [facility] Internal Medicine [facility]ARY[facility]ANE 189 [address] [facility] [address] [address] Melani Franklin DO [address] [facility] [address] [place] [address] documented as of this encounter Visit Diagnoses Diagnosis Insomnia, unspecified type documented in this encounter Care Teams Drapery Counselor Relationship Specialty Start Date End Date Melani Franklin DO [address] [facility] [address] [place] [address] PCP - General Internal Medicine 01/02/17 documented as of this encounter
--- OUTSIDE RECORDS SUMMARY | 2024-02-21 16:35 | XMS_ITS | Encounter Summary ---
Author Organization [facility] Address [address] [place] [address] Care Team Providers Care Uptwist Spinner Name Role Phone Melani Franklin DO Primary Care Provider [phone] Reason for Visit * Reason Comments Medication Refill Encounter Details Date Type Department Care Team (Late Contact Info) Description 12/07/2020 Refill [facility] Internal Medicine Medical [facility] 189 [address] [facility] [address] [place] [address] Melani Franklin, [address] [address] Social History Tobacco Use Types [...] * Telephone Encounter - Nikki Shaw - 12/07/2020 10:52 AM CDT Mail to patient: Pt needs call back: Last refilled: 10/20/19 Quantity given: 90 Number of refills: 3 Last appointment: 11/05/20 Next appointment: documented in this encounter Plan of Treatment Upcoming Encounters Date Type Department Care Team (Late st Contact Info) Description 11/24/2024 9:30 AM CDT Office Visit [facility] Internal Medicine Medical [place] A [facility] [address] [facility] [address] [address] Melani Franklin DO [address] [facility] [address] [place], [place] [address] documented as of this encounter Visit Diagnoses Not on filedocumented in this encounter Care Teams Uptwist Spinner Relationship Specialty Start Date End Date Melani Franklin DO [address] [facility] [address] [place] [address] PCP - General Internal Medicine 01/02/17 documented as of this encounter
--- OUTSIDE RECORDS SUMMARY | 2024-02-21 16:35 | XMS_ITS | Encounter Summary ---
Author Organization [facility] Address [address] [place] [address] Care Team Providers Care Tire Repairman Name Role Phone Melani Franklin DO Primary Care Provider [phone] Encounter Details Date Type Department Care Team (Late Contact Info) Description 03/22/2021 Orders Only [facility] Internal Medicine [facility] [address] [facility] [address] [place] [address] Other, Stl NO ADDRESS ON FILE Social History Tobacco [...] Visit [facility] Internal Medicine [facility] [address] [facility] [address] [place] [address] Melani Franklin, [address] [facility] [address] [place] [address] documented as of this encounter Procedures Procedure Name Priority Date/Time Associated Diagnosis Comments MAMMO DIAG UNI LEFT 3D DENIS W OR WO CAD Routine 03/14/2021 documented in this encounter Results * MAMMO DIAG UNI LEFT 3D DENIS W OR WO CAD (03/14/2021) Anatomical Region Laterality Modality Breast Left Other Stl Other MAMMO ORDERABLES documented in this encounter Visit Diagnoses Not on filedocumented in this encounter Care Teams Tire Repairman Relationship Specialty Start Date End Date Melani Franklin DO [address] [facility] [address] [place] [address] PCP - General Internal Medicine 01/02/17 documented as of this encounter
--- OUTSIDE RECORDS SUMMARY | 2024-02-21 16:35 | XMS_ITS | Encounter Summary ---
Author Organization [facility] Address [address] [place] [address] Care Team Providers Care Factory Supervisor Name Role Phone Melani Franklin DO Primary Care Provider [phone] Reason for Visit * Reason Onset Date Comments Insomnia 11/19/2020 Encounter Details Date Type Department Care Team (Late st Contact Info) Description 11/19/2020 Telephone [facility] Internal Medicine Medical [facility] [address] [facility] [address] [address] Melani Franklin, [address] [facility] [address] [place] [address] Insomnia Social History Tobacco Use Types Packs/Day Years [...] * Telephone Encounter - Radha Bolanos - 11/19/2020 1:22 PM CDT Spoke with pt and gave information. Pt understood. * Telephone Encounter - Melani Franklin DO - 11/19/2020 12:59 PM CDT rx sent for xanax to use short term/sparingly * Telephone Encounter - Liliana Bazan RN - 11/19/2020 11:21 AM CDT Pt calling wanting to know if she can get something temporarily for sleep, she has the ambien butpharmacy is telling her she can not refill until 11/25, she states that she tries to just take one 5mg tab but if she wakes up in middle of night she takes a second 5 mg tab, so she is out and has not really been able to sleep the last couple of nights, last night she did sleep 3 hours, but she stat es that she can usually fall asleep but will wake up after 3 hours or so and then been up the rest of the night, she state she tries meditation and massage, but nothing helps and the past two nights she has been up most of the night, she is unsure if it is stress or menopause but she has to have something to sleep , she does not have the amitriptyline 25 mg tabs that she used to take up to 4 tabs of to help sleep any more, she is wanting to know if she can get something like ambien temporarily until she can refill the ambien? documented in this encounter Plan of Treatment Upcoming Encounters Date Type Department Care Team (Late st Contact Info) Description 11/24/2024 9:30 AM CDT Office Visit [facility] Internal Medicine Medical [facility] [address] [facility] [address] [address] Melani Franklin DO [address] [facility] [address] [place] [address] documented as of this encounter Visit Diagnoses Diagnosis Insomnia, unspecified type- Primary documented in this encounter Care Teams Factory Supervisor Relationship Specialty Start Date End Date Melani Franklin DO [address] [place] [address] PCP - General Internal Medicine 01/02/17 documented as of this encounter
--- OUTSIDE RECORDS SUMMARY | 2024-02-21 16:35 | XMS_ITS | Encounter Summary ---
Author Organization [facility] Address [address] [place] [address] Care Team Providers Care Petrography Teacher Name Role Phone Melani Franklin DO Primary Care Provider [phone] Reason for Visit * Reason Comments Medication Refill Encounter Details Date Type Department Care Team (Late Contact Info) Description 05/07/2021 Refill [facility] Internal Medicine [facility] [address] [facility] [address] [place] [address] Melani Franklin, DO [address] [place] [address] Social History Tobacco Use Types Packs/Day [...] Description 11/24/2024 9:30 AM CDT Office Visit [facility] Internal Medicine [facility] [address] [facility] [address] [place] [address] Melani Franklin, DO [address] [address] documented as of this encounter Visit Diagnoses Not on filedocumented in this encounter Care Teams Petrography Teacher Relationship Specialty Start Date End Date Melani Franklin DO [address] [address] PCP - General Internal Medicine 01/02/17 documented as of this encounter
--- OUTSIDE RECORDS SUMMARY | 2024-02-21 16:35 | XMS_ITS | Encounter Summary ---
Author Organization [facility] Address [address] [facility] Attn: [place] [address] Care Team Providers Care Tooling Engineering Tech Name Role Phone Melani Franklin DO Primary Care Provider [phone] Encounter Details Date Type Department Care Team (Latest Contact Info) Description 06/24/2020 Travel Social History Tobacco Use Types Packs/Day [...] have Coronavirus / COVID-19? No / Unsure 06/24/2020 9:48 AM CDT documented as of this encounter Plan of Treatment Upcoming Encounters Date Type Department Care Team (Late st Contact Info) Description 11/24/2024 9:30 AM CDT Office Visit [facility] Internal Medicine Medical [place] A [facility] 189 [address] [facility] [address] [address] Melani Franklin DO [address] [facility] [address] [place] [address] documented as of this encounter Visit Diagnoses Not on filedocumented in this encounter Care Teams Tooling Engineering Tech Relationship Specialty Start Date End Date Melani Franklin DO [address] [facility] 189 [place] [address] PCP - General Internal Medicine 01/02/17 documented as of this encounter
--- OUTSIDE RECORDS SUMMARY | 2024-02-21 16:35 | XMS_ITS | Encounter Summary ---
Author Organization [facility] Address [address] [place] [address] Care Team Providers Care Sheet Pile Hammer Operator Name Role Phone Melani Franklin DO Primary Care Provider [phone] Reason for Visit * Reason Comments Medication Refill Encounter Details Date Type Department Care Team (Late Contact Info) Description 03/23/2021 Refill [facility] Internal Medicine Medical [place] A [facility] [address] [facility] [address] [address] Felicia Arevalo, [facility] [address] [place] [address] Social History Tobacco Use Types Packs/Day Years [...] Telephone Encounter - Janine Benito LPN - 03/24/2021 7:57 AM CST Last seen:11/05/20 Next appt:none Last fill:06/03/20 ON PICTURE SET UP WORKER documented in this encounter Plan of Treatment Upcoming Encounters Date Type Department Care Team (Late st Contact Info) Description 11/24/2024 9:30 AM CDT Office Visit [facility] Internal Medicine Medical [place] A [facility] [address] [facility] [address] [address] Melani Franklin DO [address] [facility] [address] [place] [address] documented as of this encounter Visit Diagnoses Not on filedocumented in this encounter Care Teams Sheet Pile Hammer Operator Relationship Specialty Start Date End Date Melani Franklin DO [address] [facility] [address] [place], [place] [address] PCP - General Internal Medicine 01/02/17 documented as of this encounter
--- OUTSIDE RECORDS SUMMARY | 2024-02-21 16:35 | XMS_ITS | Encounter Summary ---
Author Organization [facility] Address [address] [place] [address] Care Team Providers Care Maintenance Scheduler Name Role Phone Melani Franklin DO Primary Care Provider [phone] Reason for Visit * Reason Comments Medication Refill Encounter Details Date Type Department Care Team (Late st Contact Info) Description 12/15/2020 Refill [facility] Internal Medicine Medical [facility] [address] [facility] [address] [place] [address] Melani Franklin DO [address] [address] Insomnia, unspecified type Social History [...] * Telephone Encounter - Radha Bolanos - 12/15/2020 10:10 AM CDT Date of last refill 12-03-20 Quantity given 15 Number of Refills 0 Last Appt 11-05-20 Next Appt 0 documented in this encounter Plan of Treatment Upcoming Encounters Date Type Department Care Team (Late st Contact Info) Description 11/24/2024 9:30 AM CDT Office Visit [facility] Internal Medicine Medical [place] A [facility] [address] [facility] [address] [address] Melani Franklin DO [address] [facility] [address] [place] [address] documented as of this encounter Visit Diagnoses Diagnosis Insomnia, unspecified type documented in this encounter Care Teams Maintenance Scheduler Relationship Specialty Start Date End Date Melani Franklin DO [address] [facility] [address] [place] [address] PCP - General Internal Medicine 01/02/17 documented as of this encounter"
--- OUTSIDE RECORDS SUMMARY | 2024-02-21 16:35 | XMS_ITS | Encounter Summary ---
Author Organization [facility] Address [address] [place] [address] Care Team Providers Care Vertical Contour Band Saw Operator Name Role Phone Melani Franklin DO Primary Care Provider [phone] Encounter Details Date Type Department Care Team ([facility] Contact Info) Description 12/20/2020 Abstract [facility] Internal Medicine [facility] [address] [facility] [address] [place] [address] Melani Franklin, DO [address] [facility] [address] [place] [address] Social History Tobacco Use Types Packs/Day [...] Office Visit [facility] Internal Medicine [facility] [address] [facility] [address] [place] [address] Melani Franklin, DO [address] [facility] [address] [place] [address] documented as of this encounter Visit Diagnoses Not on filedocumented in this encounter Care Teams Vertical Contour Band Saw Operator Relationship Specialty Start Date End Date Melani Franklin DO [address] [facility] [address] [place] [address] PCP - General Internal Medicine 01/02/17 documented as of this encounter
--- OUTSIDE RECORDS SUMMARY | 2024-02-21 16:35 | XMS_ITS | Encounter Summary ---
Author Organization [facility] Address [address] [place] [address] Care Team Providers Care Soa Integration Developer Name Role Phone Melani Franklin DO Primary Care Provider [phone] Reason for Visit * Reason Comments Medication Refill Encounter Details Date Type Department Care Team (Late st Contact Info) Description 12/03/2020 Refill [facility] Internal Medicine Medical [facility] [address] [facility] [address] [place] [address] Melani Franklin, [address] [address] Insomnia, unspecified type Social History [...] encounter Miscellaneous Notes * Telephone Encounter - ItaliaManuelNereyda R - 12/03/2020 10:42 AM CDT Mail to patient: Pt needs call back: Last refilled:11/19/20 Quantity given:15 Number of refills:0 Last appointment:06/24/20 Next appointment:none documented in this encounter Plan of Treatment Upcoming Encounters Date Type Department Care Team (Late st Contact Info) Description 11/24/2024 9:30 AM CDT Office Visit [facility] Internal Medicine Medical [facility] 189 [address] [facility] [address] [address] Melani Franklin DO [address] [facility] [address] [place] [address] documented as of this encounter Visit Diagnoses Diagnosis Insomnia, unspecified type documented in this encounter Care Teams Soa Integration Developer Relationship Specialty Start Date End Date Melani Franklin DO [address] [facility] [address] [place], [place] [address] PCP - General Internal Medicine 01/02/17 documented as of this encounter
--- OUTSIDE RECORDS SUMMARY | 2024-02-21 16:35 | XMS_ITS | Encounter Summary ---
Author Organization [facility] Address [address] [place] [address] Care Team Providers Care Housekeeping Manager Name Role Phone Melani Franklin DO Primary Care Provider [phone] Encounter Details Date Type Department Care Team (Latest Contact Info) Description 03/14/2021 1:10 PM [employer] - 03/14/2021 11:59 PM [facility] Hospital Encounter [facility] Medical [place] [address] [place] [address] [facility], External Provider [address] [place] [address] Discharge Disposition: Home or Self Care Social [...] OR INSOMNIA 30 Tablet 3 03/09/2021 07/05/2021 montelukast (SINGULAIR) 10 mg tablet TAKE 1 TABLET(10 MG) BY MOUTH DAILY AT BEDTIME 30 Tablet 3 03/08/2021 04/28/2021 escitalopram oxalate (LEXAPRO) 20 mg tabletIndications:Mild episode of recurrent major depressive disorder TAKE 1 TABLET(20 MG) BY MOUTH DAILY 90 Tablet 3 03/04/2021 02/28/2022 valACYclovir (VALTREX) 1 gram tabletIndications:Cold sore TAKE 2 TABLETS BY MOUTH TWICE DAILY 4 Tablet 3 02/21/2021 06/24/2021 lisinopril-hydroCHLOROt hiazide (ZESTORETIC) 10-12.5 mg tablet Take 1 Tablet by mouth daily. 90 Tablet 3 12/07/2020 01/09/2022 traZODone (DESYREL) 50 mg tablet Take 1-2 Tablets (50-100 mg) by mouth daily at bedtime. 60 Tablet 12/03/2020 10/12/2021 zolpidem (AMBIEN) 5 mg tabletIndications:Insom adis, unspecified type Take 1-2 Tablets (5-10 mg) by mouth nightly as needed for Insomnia. 30 Tablet 5 11/07/2020 05/22/2021 naproxen (NAPROSYN) 500 mg tablet TAKE 1 TABLET BY MOUTH TWICE DAILY 180 Tablet 06/16/2020 09/13/2022 cholestyramine, with sugar, (QUESTRAN) 4 gram Powder in Packet DISSOLVE CONTENTS OF 1 PACKET IN LIQUID AND TAKE BY MOUTH DAILY 60 Packet 3 06/03/2020 03/25/2021 documented as of this encounter Plan of Treatment Upcoming Encounters Date Type Department Care Team (Late st Contact Info) Description 11/24/2024 9:30 AM CDT Office Visit [facility] Internal Medicine Medical [place] A [facility] [address] [facility] [address] [address] Melani Franklin, DO [address] [facility] [address] [place] [address] documented as of this encounter Procedures Procedure Name Priority Date/Time Associated Diagnosis Comments MAMMO PRIOR STUDY Routine 03/14/2021 1:1 0 PM [employer] Follow-up exam documented in this encounter Results * MAMMO PRIOR STUDY (03/14/2021 1:10 PM [employer]) Narrative 04/18/2022 1:07 PM [employer] This exam was auto finalized to allow images to be scanned to PACS. External Provider [facility] DIAGNOSTIC IMAGI NG ORDERABLES documented in this encounter Visit Diagnoses Diagnosis Follow-up exam Unspecified follow-up examination documented in this encounter Care Teams Housekeeping Manager Relationship Specialty Start Date End Date Melani Franklin DO [address] [place] [address] PCP - General Internal Medicine 01/02/17 documented as of this encounter
--- OUTSIDE RECORDS SUMMARY | 2024-02-21 16:35 | XMS_ITS | Encounter Summary ---
Author Organization [facility] Address [address] [place] [address] Care Team Providers Care Electrical Maintenance Supervisor Name Role Phone Melani Franklin DO Primary Care Provider [phone] Encounter Details Date Type Department Care Team ([facility] Contact Info) Description 11/04/2020 Abstract [facility] Internal Medicine [facility] [address] [facility] [address] [place] [address] Melani Franklin DO [address] [address] [place] [address] Social History Tobacco Use Types [...] [facility] Internal Medicine [facility] [address] [facility] [address] [address] Melani Franklin DO [address] [facility] [address] [place] [address] documented as of this encounter Visit Diagnoses Not on filedocumented in this encounter Care Teams Electrical Maintenance Supervisor Relationship Specialty Start Date End Date Melani Franklin DO [address] [facility] [address] [place] [address] PCP - General Internal Medicine 01/02/17 documented as of this encounter
--- OUTSIDE RECORDS SUMMARY | 2024-02-21 16:35 | XMS_ITS | Encounter Summary ---
Author Organization [facility] Address [address] [place] [address] Care Team Providers Care Counter Pocket Trimmer Name Role Phone Melani Franklin DO Primary Care Provider [phone] Reason for Visit * Reason Comments Cough Insomnia Encounter Details Date Type Department Care Team (Late st Contact Info) Description 11/05/2020 3:40 PM CDT Video Visit [facility] Internal Medicine Medical [place] A [facility] [address] [facility] [address] [address] Felicia Arevalo, [facility] [address] [place] [address] Cough (Primary Dx); Insomnia, unspecified type Social History Tobacco Use [...] Pressure - - Pulse - - Temperature 36.5 ??C (97.7 ??F) 11/05/2020 3:12 PM CD T Respiratory Rate - - Oxygen Saturation - - Inhaled Oxygen Concentration - - Weight 69.4 kg (153 lb) 11/05/2020 3:12 PM CDT Height 157.5 cm (5' 2 ) 11/05/2020 3:12 PM CDT Body Mass Index 27.98 11/05/2020 3:12 PM CDT documented in this encounter Progress Notes * Felicia Arevalo, RESIDENCE LEASING AGENT - 11/05/2020 3:40 PM CDT [facility] Internal Medicine Outpatient Progress Note Jody Mason is a 50 y.o. female presents with a Chief Complaint of No chief complaint on file. Supervising Physician- Melani Franklin DO HPI: This encounter was completed via two-way synchronous audio and video communication. Patient expressed understanding that using technology outside of [facility] has higher potential tointroduce privacy risks: Not Applicable Patient's identity confirmed yes Patient gave verbal consent to have these services billed to their insurance and expressed understanding that co-insurance and deductible may apply: yes Answers for HPI/ROS submitted by the patient on 11/04/2020 Chronicity: chronic Onset: more than 1 year ago Progression since onset: gradually worsening Frequency: every few hours Cough characteristics: non-productive ear congestion: No heartburn: No hemoptysis: No nasal congestion: No sweats: Yes weight loss: No Aggravated by: lying down Risk factors for lung disease: animal exposure Dry cough for a year, worse lately. She also notes bad allergies. Has seen an risk and insurance manager who recommended Zyrtec at BID dosing which shows no relief. She continues to have nasal congestion and PND. Cough worse at night in supine position. No hemoptysis, unintentional weight loss, or SOB. She feels well otherwise. She notes that lately she has been needing 2 tabs of Ambien to sleep-has upcoming surgery and troubles at home. Says she knows Dr. Franklin doesn't like her to use this medication but she has to be able to sleep. She will be running of script soon since she has been taking 2. Patient Active Problem List Diagnosis Code ??? Benign hypertension I10 ??? Postcholecystectomy diarrhea R19.7, Z90.49 ??? Migraine with aura and without status migrainosus, not intractable G43.109 ??? Insomnia G47.00 ??? Mild episode of recurrent major depressive disorder F33.0 Current Outpatient Medications on File Prior to Visit Medication Sig Dispense Refill ??? naproxen (NAPROSYN) [...] Take 1 Tablet by mouth daily. 3 No current facility-administered medications on file prior to visit. REVIEW OF SYSTEMS: Review of Systems Constitutional: Negative for chills, fever and unexpected weight change. HENT: Positive for congestion, postnasal drip and rhinorrhea. Negative for ear pain and sore throat. Respiratory: Positive for cough. Negative for shortness of breath and wheezing. Cardiovascular: Negative for chest pain. Musculoskeletal: Negative for myalgias. Skin: Negative for rash. Neurological: Positive for headaches. Objective Vitals: 11/05/20 1512 Temp: 97.7 ??F (36.5 ??C) Estimated body mass index is 27.98 kg/m?? as calculated from the following: Height as of this encounter: 5' 2 (1.575 m). Weight as of this encounter: 69.4 kg (153 lb). PHYSICAL EXAM: Physical Exam Vitals reviewed. Constitutional: Appearance: Normal appearance. She is not ill-appearing. Pulmonary: Effort: Pulmonary effort is normal. Neurological: Mental Status: She is alert and oriented to person, place, and time. Psychiatric: Mood and Affect: Mood normal. Thought Content: Thought content normal. ASSESSMENT AND PLAN: Diagnoses and all orders for this visit: Cough Most like allergic cough 2/2 to PND. Add singulair. Update in 1 month, if not improved consider changing Lisinopril to Losartan. Explained CXR not needed at this time due to no red flag symptoms but would be considered if the above two interventions prove to be ineffective. Insomnia, unspecified type Send for script at 10 mg, half tab encouraged when able. RTC routine care or sooner if needed BERE Peña documented in this encounter Plan of Treatment Upcoming Encounters Date Type Department Care Team (Late st Contact Info) Description 11/24/2024 9:30 AM CDT Office Visit [facility] Internal Medicine Medical [place] A [facility] [address] [facility] [address] [address] Melani Franklin DO [address] [facility] [address] [place] [address] documented as of this encounter Visit Diagnoses Diagnosis Cough- Primary Insomnia, unspecified type documented in this encounter Care Teams Counter Pocket Trimmer Relationship Specialty Start Date End Date Melani Franklin DO [address] [place] [address] [address] [place] [address] PCP - General Internal Medicine 01/02/17 documented as of this encounter
--- OUTSIDE RECORDS SUMMARY | 2024-02-21 16:35 | XMS_ITS | Encounter Summary ---
Author Organization [facility] Address [address] [place] [address] Care Team Providers Care Test Case Developer Name Role Phone Melani Franklin DO Primary Care Provider [phone] Encounter Details Date Type Department Care Team ([facility] Contact Info) Description 2021 Abstract [facility] Internal Medicine [facility] [address] [facility] [address] [place] [address] Melani Franklin, DO [address] [facility] [address] [place] [address] Social History Tobacco Use Types Packs/Day [...] Office Visit [facility] Internal Medicine [facility] [address] [facility] [address] [place] [address] Melani Franklin, DO [address] [facility] [address] [place] [address] documented as of this encounter Visit Diagnoses Not on filedocumented in this encounter Care Teams Test Case Developer Relationship Specialty Start Date End Date Melani Franklin DO [address] [facility] [address] [place] [address] PCP - General Internal Medicine 01/02/17 documented as of this encounter
--- OUTSIDE RECORDS SUMMARY | 2024-02-21 16:35 | XMS_ITS | Encounter Summary ---
Author Organization [facility] Address [address] [place] [address] Care Team Providers Care Band Splitter Name Role Phone Melani Franklin DO Primary Care Provider [phone] Encounter Details Date Type Department Care Team ([facility] Contact Info) Description 07/02/2020 Orders Only [facility] Internal Medicine [facility] [address] [facility] [address] [place] [address] Melani Franklin DO [address] [facility] [address] [facility] [place] [address] Social History Tobacco Use Types [...] Visit [facility] Internal Medicine [facility] [address] [facility] [address] [place] [address] Melani Franklin DO [address] [facility] [address] [place], [place] [address] documented as of this encounter Visit Diagnoses Not on filedocumented in this encounter Care Teams Band Splitter Relationship Specialty Start Date End Date Melani Franklin DO [address] [facility] [address] [place] [address] PCP - General Internal Medicine 01/02/17 documented as of this encounter
--- OUTSIDE RECORDS SUMMARY | 2024-02-21 16:35 | XMS_ITS | Encounter Summary ---
Author Organization [facility] Address [address] [place] [address] Care Team Providers Care Residential Plumber Name Role Phone Melani Franklin DO Primary Care Provider [phone] Reason for Visit * Reason Comments Medication Refill Encounter Details Date Type Department Care Team (Late Contact Info) Description 04/28/2021 Refill [facility] Internal Medicine Medical [facility] [address] [facility] [address] [place] [address] Melani Franklin DO [address] [address] Social History Tobacco Use Types [...] * Telephone Encounter - Nikki Shaw - 04/28/2021 1:59 PM CST Medication is on current med list. yes Has been seen or will be seen in the office. 11/05/20, 09/01/21 [employer]OR [employer] COMPENSATION documented in this encounter Plan of Treatment Upcoming Encounters Date Type Department Care Team (Late st Contact Info) Description 11/24/2024 9:30 AM CDT Office Visit [facility] Internal Medicine Medical [place] [facility] [address] [facility] [address] [address] Melani Franklin DO [address] [facility] [address] [place] [address] documented as of this encounter Visit Diagnoses Not on filedocumented in this encounter Care Teams Residential Plumber Relationship Specialty Start Date End Date Melani Franklin DO [address] [facility] [address] [place], [place] [address] PCP - General Internal Medicine 01/02/17 documented as of this encounter
--- OUTSIDE RECORDS SUMMARY | 2024-02-21 16:35 | XMS_ITS | Encounter Summary ---
Author Organization [facility] Address [address] [place] [address] Care Team Providers Care Orthodontic Technician Name Role Phone Melani Franklin DO Primary Care Provider [phone] Reason for Visit * Reason Onset Date Comments Medication Refill 06/14/2020 Encounter Details Date Type Department Care Team (Late st Contact Info) Description 06/14/2020 Refill [facility] Internal Medicine [facility] [address] [facility] [address] [place] [address] Alyssa Whiting MD [address] [place] [address] [place] [address] Social History Tobacco Use Types Packs/Day Years [...] [facility] Internal Medicine [facility] [address] [facility] [address] [address] Melani Franklin DO [address] [facility] [address] [place] [address] documented as of this encounter Visit Diagnoses Not on filedocumented in this encounter Care Teams Orthodontic Technician Relationship Specialty Start Date End Date Melani Franklin DO [address] [place] [address] PCP - General Internal Medicine 01/02/17 documented as of this encounter
--- OUTSIDE RECORDS SUMMARY | 2024-02-21 16:35 | XMS_ITS | Encounter Summary ---
Author Organization [facility] Address [address] [place] [facility] Attn: [place] [address] Care Team Providers Care Chisel Mortiser Operator Name Role Phone Melani Franklin DO Primary Care Provider [phone] Encounter Details Date Type Department Care Team (Latest Contact Info) Description 08/26/2020 Travel Social History Tobacco Use Types Packs/Day [...] Visit [facility] Internal Medicine Medical [place] A [facility] [address] [facility] [facility] [address] [address] Melani Franklin DO [address] [facility] [address] [place] [address] documented as of this encounter Visit Diagnoses Not on filedocumented in this encounter Care Teams Chisel Mortiser Operator Relationship Specialty Start Date End Date Melani Franklin DO [address] [facility] [address] [place] [address] PCP - General Internal Medicine 01/02/17 documented as of this encounter
--- OUTSIDE RECORDS SUMMARY | 2024-02-21 16:35 | XMS_ITS | Encounter Summary ---
Author Organization [facility] Address [address] [place] [address] Care Team Providers Care Drive In Theater Attendant Name Role Phone Melani Franklin DO Primary Care Provider [phone] Reason for Visit * Reason Comments Medication Refill Encounter Details Date Type Department Care Team (Late Contact Info) Description 06/14/2020 Refill [facility] Internal Medicine [facility] [address] [facility] [address] [place] [address] Melani Franklin, DO [address] [place] [address] Social History Tobacco Use Types Packs/Day [...] AM CDT Office Visit [facility] Internal Medicine [facility] [address] [facility] [address] [place] [address] Melani Franklin, DO [address] [address] documented as of this encounter Visit Diagnoses Not on filedocumented in this encounter Care Teams Drive In Theater Attendant Relationship Specialty Start Date End Date Melani Franklin DO [address] [address] PCP - General Internal Medicine 01/02/17 documented as of this encounter
--- OUTSIDE RECORDS SUMMARY | 2024-02-21 16:35 | XMS_ITS | Encounter Summary ---
Author Organization [facility] Address [address] [place] [address] Care Team Providers Care Brick Veneer Maker Name Role Phone Melani Franklin DO Primary Care Provider [phone] Reason for Visit * Reason Onset Date Comments Medication Refill 11/09/2020 Encounter Details Date Type Department Care Team (Late st Contact Info) Description 11/09/2020 Telephone [facility] Internal Medicine Medical [facility] [address] [facility] [address] [place] [address] Melani Franklin DO [address] [facility] [address] [place] [address] Medication Refill Social History Tobacco Use Types Packs/Day [...] * Telephone Encounter - Radha Bolanos - 11/10/2020 8:56 AM CDT Spoke with pt and gave information. Pt understood. * Telephone Encounter - Felicia Arevalo FNP - 11/09/2020 12:45 PM CDT Script sent. Thanks * Telephone Encounter - Radha Bolanos - 11/09/2020 12:33 PM CDT Video visit 11-05-20 Pt says that you were going to send a script for singulair documented in this encounter Plan of Treatment Upcoming Encounters Date Type Department Care Team (Late st Contact Info) Description 11/24/2024 9:30 AM CDT Office Visit [facility] Internal Medicine Medical [place] A [facility] [address] [facility] [facility] [address] Melani Franklin DO [address] [facility] [place] [address] documented as of this encounter Visit Diagnoses Not on filedocumented in this encounter Care Teams Brick Veneer Maker Relationship Specialty Start Date End Date Melani Franklin DO [address] [facility] [place] [address] PCP - General Internal Medicine 01/02/17 documented as of this encounter
--- OUTSIDE RECORDS SUMMARY | 2024-02-21 16:35 | XMS_ITS | Encounter Summary ---
Author Organization [facility] Address [address] [place] [address] Care Team Providers Care Pearler Name Role Phone Melani Franklin Primary Care Provider [phone] Reason for Visit * Auth/Cert Specialty Diagnoses / Procedures Referred By Tyrone baxter Referred To Contact Perioperative Diagnoses Screening for colon cancer Procedures COLONOSCOPY [facility] [address] [place] [address] Referral ID Status Reason Start Date Expiration Date Visits Re quested Visits Authorized [id number] 1 1 Encounter Details Date Type Department Care Team (Late st Contact Info) Description 08/26/2020 12:00 PM CDT - 08/26/2020 12:30 PM CDT Surgery [facility] GI [facility] S Pending Sale To [facility] [address] [place] [address] Barrington Bueno MD [address] [facility] [place] [address] COLONOSCOPY Surgery Details Date/Time Status Location OR Service Patient Class Case Class Case Type Trauma Case? 08/26/2020 12:00 PM Posted [facility] GI 04 Gastroenterology Outpatient Elective No Panel 1 Procedure LRB Anes Op Region Wound Class Comments COLONOSCOPY N/A General Anus Surgeon Surgeon Role Service Panel Barrington Bueno MD Primary Gastroenterology 1 documented in this encounter Social History Tobacco [...] Sign Reading Time Taken Comments Blood Pressure 144/95 08/26/2020 11:40 AM CDT Pulse 84 08/26/2020 11:40 AM CDT Temperature 36.9 ??C (98.5 ??F) 08/26/2020 11:40 AM C DT Respiratory Rate 16 08/26/2020 11:40 AM CDT Oxygen Saturation 100% 08/26/2020 11:40 AM CDT Inhaled Oxygen Concentration - - [...] weeks, please call the office. Office Phone: [facility] [phone] Exchange: documented in this encounter Medications at [...] 08/26/2020 12:31 PM CDTAssociated Order(s): COLONOSCOPY REPORT [facility] Endoscopy Patient Name: Jody Mason Procedure Date: [...] electronically. Number of Addenda: [address]; [place] [address] * Giana Merchant RN - 08/20/2020 2:30 PM CDT [facility] Nurse Assessment Patient: Jody Mason : 1970 Endoscopist: Surgeon(s): Barrington Bueno MD Upcoming Procedure: Procedure to be Performed: Procedure(s): COLONOSCOPY Procedure Date/Time: 08/26/2020 at 1200 Diagnosis/Indication for procedure: Pre-Op Diagnosis Codes: * Screening for colon cancer [Z12.11] Location: [facility] GI LAB Referring Physician: Melani Franklin Patient's BMI: Body mass index is 28.17 kg/m??. Is patient a candidate for offsite location? yes Medications Type of prep given: CSP Anticoagulants: no NSAIDS Relevant prior procedure/pathology: Procedure: colon Physician: ? Date: 10 yrs Location: [place] Last Pathology: NONE Past Surgical History: Past Surgical [...] Routine Pre-Anesthesia Protocol for GI Lab Procedures [facility] Approved by: [facility] - Medical Executive Committee Approval Date: 07/22/2020 ORDERS ARE ENTERED ???PER PROTOCOL?? Enter the protocol in the patient???s electronic health record using Stypirase: .anestprotocolgilab NURSING ORDERS: Monitoring: o Obtain and [...] appropriate, may confirm POC with: Nursing Only [id number] (this lab can be obtained at no [...] injectable antihyperglycemic agents and glucose is less [id number] mg/dl o NPO patients who have NOT [...] MEDICATION ORDERS - entered by the Pharmacist clinical sciences professor RESCUE ORDERS - entered by the Pharmacist or the hse advisor Orders Patient has IV access and UNCONCIOUS, [...] - [facility] Internal Medicine Medical [place] A [address] [facility] [address] [address] Melani Franklin, DO [address] [facility] [address] [place], [place] [id number] documented as of this encounter Procedures Procedure [...] Bueno MD - 08/26/2020 12:31 PM CDT [facility] Endoscopy Patient Name: Jody Mason Procedure Date: [...] signed electronically. Number of Addenda: [address]; [place] [address] Barrington Bueno MD GI PROCEDURE ORDERAB LES * PATHOLOGY (08/26/2020 12:21 PM CDT) CASE REPORT Surgical Pathology Report ? Case: [id number] ? Authorizing Provider: ??Barrington Bueno MD ? Collected: ? 08/26/2020 12:21 PM ? Ordering Location: ? [facility] S [address] ??Received: ?08/26/2020 02:13 PM ? Pathologist: ? Steve Sánchez MD ? Specimens: ?? A) - Colon, transverse, polyps x2 ? B) - Rectum, polyp ? 08/29/2020 12:25 PM [facility] FINAL DIAGNOSIS A. Colon, transverse, polyps, biopsy: - Sessile serrated adenoma, fragments of. B. Colon, rectum, polyp, biopsy: - Colonic mucosa with hyperplastic changes. 08/29/2020 12:25 PM [facility] S DESCRIPTION The specimens are received [...] toto labeled B1. ALG 08/29/2020 12:25 PM [facility] MICROSCOPIC DESCRIPTION The slides are labeled [id number] and Jody Mason. The transverse colon polyp [...] Additional levels were reviewed. 08/29/2020 12:25 PM [facility] Very [place] Art [facility] OPERATIVE PROCEDURE 1: COLONOSCOPY 08/29/2020 12:25 PM [facility] CLINICAL INFORMATION A Colon Polyp(s). Adenomatous vs hyperplastic vs other. Colon Polyp(s). Adenomatous vs hyperplastic vs other. Screening for colon cancer [Z12.11] Z12.11-Screening for colon cancer 08/29/2020 12:25 PM CDT [facility] COMMENT Special stain and/or immunohistochemical results are interpreted with controls that demonstrate appropriate staining reactions. Note on use of immunocytochemistry reagents: This test was developed and its performance characteristics determined by [facility] Department of Laboratory Medicine. It has not [...] part or completely in the following laboratories: [facility], CLIA #[id number] [address] [place] [address] [facility][id number] [address] [place] [address] [facility], CLIA #[id number] [address] [place] [address] 08/29/2020 12:25 PM CDT [facility] Tissue TRANSVERSE COLON STRUCTURE / Unknown Collection / Unknown 08/26/2020 12:21 PM CDT 08/26/2020 2:13 PM CDT Comment:Colon Polyp(s). Vinh omatous vs hyperplastic vs other. Tissue specimen (specimen) ENTIRE RECTUM / Unknown 08/26/2020 12:28 PM CDT 08/26/2020 2:13 PM CDT Comment:Colon Polyp(s). Vinh omatous vs hyperplastic vs other. Barrington Bueno MD PATHOLOGY/CYTOLOGY O RDERABLES [facility] CLIA# [id number] [facility] [place] [address] * POC , URINE (08/26/2020 11:51 AM CDT) HCG QUAL URINE Negative Negative 08/26/2020 11:51 AM CDT [facility] FILTER PRESS TENDER HEAD NAME [place] CABA 08/26/2020 11:51 AM CDT [facility] Urine 08/26/2020 11:5 1 AM CDT 08/26/2020 11:53 AM CDT Barrington Bueno MD POINT OF CARE TESTIN G [facility] CLIA# [id number] [address] [facility] [place] [id number] documented in this encounter Visit Diagnoses Diagnosis Screening for colon cancer Special screening for malignant neoplasms, colon Screening for colon cancer Special screening for [...] RN) documented in this encounter Care Teams Pearler Relationship Specialty Start Date End Date Melani Franklin DO [address] [facility] [place], [place] [phone] PCP - General Internal Medicine 01/02/17 documented as of this encounter
--- OUTSIDE RECORDS SUMMARY | 2024-02-21 16:35 | XMS_ITS | Encounter Summary ---
Author Organization [facility] Address [address] [place] [address] Care Team Providers Care Cardiovascular Operating Room Nurse Name Role Phone Melani Franklin DO Primary Care Provider [phone] Reason for Visit * Reason Comments Medication Refill Encounter Details Date Type Department Care Team (Late st Contact Info) Description 11/15/2020 Refill [facility] Internal Medicine Medical [facility] [address] [facility] [address] [place] [address] Melani Franklin, [address] [address] Migraine with aura and without status migrainosus, not intractable (Primary Dx) Social History Tobacco Use Types [...] encounter Miscellaneous Notes * Telephone Encounter - Mitzy Kristen - 11/16/2020 12:23 PM CDT Last Fill- 03/26/20 w #29/05 Last OV- 11/05/20 Next OV- None documented in this encounter Plan of Treatment Upcoming Encounters Date Type Department Care Team (Late st Contact Info) Description 11/24/2024 9:30 AM CDT Office Visit [facility] Internal Medicine Medical [place] A [address] [facility] [address] [address] Melani Franklin DO [address] [facility] [address] [place] [address] documented as of this encounter Visit Diagnoses Diagnosis Migraine with aura and without status migrainosus, not intractable- Primary Migraine with aura, without mention of intractable migraine without mention of status migrainosus documented in this encounter Care Teams Cardiovascular Operating Room Nurse Relationship Specialty Start Date End Date Melani Franklin DO [address] [facility] [address] [place], [place] [phone] PCP - General Internal Medicine 01/02/17 documented as of this encounter
--- OUTSIDE RECORDS SUMMARY | 2024-02-21 16:35 | XMS_ITS | Encounter Summary ---
Author Organization [facility] Address [address] [place] [address] Care Team Providers Care Economic Consultant Name Role Phone Melani Franklin DO Primary Care Provider [phone] Reason for Visit * Reason Comments Cough Encounter Details Date Type Department Care Team (Late st Contact Info) Description 06/08/2021 2:40 PM CDT Office Visit [facility] Internal Medicine Medical [place] A [facility] [address] [address] Michelle Temple, MEHRAN [address] [facility] [address] [place] [address] Cough (Primary Dx); Gastroesophageal reflux disease, unspecified whether esophagitis present; Postcholecystectomy diarrhea; Benign hypertension Social History Tobacco Use Types Packs/Day Years [...] Sign Reading Time Taken Comments Blood Pressure 124/88 06/08/2021 2:39 PM CDT Pulse 76 06/08/2021 2:39 PM CDT Temperature 36.7 ??C (98.1 ??F) 06/08/2021 2:39 PM CD T Respiratory Rate - - Oxygen Saturation - - Inhaled Oxygen Concentration - - Weight 71.2 kg (157 lb) 06/08/2021 2:39 PM CDT Height 160 cm (5' 3 ) 06/08/2021 2:39 PM CDT Body Mass Index 27.81 06/08/2021 2:39 PM CDT documented in this encounter Progress Notes * Michelle Temple, WOMEN'S MINISTRY DIRECTOR - 06/08/2021 2:40 PM CDT Jody Mason is a 51 y.o. female who presents with chief complaint of Cough SUBJECTIVE: Supervising Physician: Dr. Franklin Presents today for evaluation of a chronic cough. Last seen for video visit on 11/05/20 for cough. Thought to be allergic due to post nasal drip at that time. Singulair was added to her medications by her forging roll operator. Today she reports having a URI about 3 months ago that caused a progressive increase in her coughing. Since that time she has had continued phlegm and a cough that is worse at night. Has had a negative covid test since onset. In the mornings she coughs up large amounts of clear phlegm -noticed someblood-tinged clear sputum yesterday morning after coughing a lot. Has some fatigue from not sleeping well. She denies any shortness of breath and has good activity tolerance. Notices some occasional wheezing. She reports a history of asthma when she lived in [place]. Father also had asthma. She Used Ventolinat that time which helped. Since she moved to [place] 18 years ago she has not had issues with asthma. She has used Delsym and cough drops without much improvement. She also reports having increased acid reflux. Takes a costco brand reflux medication- unsure what medication this is. Has also tried a salt box treatment- breathes in medical grade salt- hasn't noticed improvement. Does notice increased urgency of stool recently. No other concerns today. Review of Systems - General ROS: negative for weight changes, fever ENT ROS: negative for nasal congestion, drainage or bleeding, sore throat, dysphagia or ear pain Hematological and Lymphatic ROS: negative for swollen glands or abnormal bleeding Respiratory ROS: positive for - cough with clear sputum, occasional wheezing Cardiovascular ROS: negative for chest pain or dyspnea on exertion Gastrointestinal ROS: positive for -reflux Genito-Urinary ROS: negative for dysuria, trouble voiding, or hematuria Musculoskeletal ROS: negative for back pain, neck pain or joint pain or swelling Neurological ROS: negative for TIA or stroke symptoms Current Outpatient Medications on File Prior to Visit Medication Sig Dispense Refill ??? zolpidem (AMBIEN) 5 mg tablet TAKE 1 TO 2 TABLETS(5 TO 10 MG) BY MOUTH EVERY NIGHT NEEDED FOR INSOMNIA 30 Tablet 1 ??? montelukast (SINGULAIR) 10 mg tablet TAKE 1 TABLET(10 MG) BY MOUTH DAILY AT BEDTIME 90 Tablet 1 ??? cholestyramine, with sugar, (QUESTRAN) 4 gram Powder in Packet DISSOLVE CONTENTS OF 1 PACKET INLIQUID AND DRINK BY MOUTH DAILY 90 Packet 1 ??? ALPRAZolam (XANAX) 0.25 mg tablet TAKE 1 TO 2 TABLETS(0.25 TO 0.5 MG) BY MOUTH EVERY NIGHT NEEDED FOR ANXIETY OR INSOMNIA 30 Tablet 3 ??? escitalopram oxalate (LEXAPRO) 20 mg tablet TAKE 1 TABLET(20 MG) BY MOUTH DAILY 90 Tablet 3 ??? valACYclovir (VALTREX) 1 gram tablet TAKE 2 TABLETS BY MOUTH TWICE DAILY 4 Tablet 3 ??? lisinopril-hydroCHLOROthiazide (ZESTORETIC) 10-12.5 mg tablet Take 1 Tablet by mouth daily. 90 Tablet 3 ??? traZODone (DESYREL) 50 mg tablet Take 1-2 Tablets (50-100 mg) by mouth daily at bedtime. 60 Tablet 0 ??? SUMAtriptan (IMITREX) 100 mg tablet TAKE [...] 2 times daily. 50 mL 0 ??? glucosamine/chondr evans A sod (OSTEO BI-FLEX ORAL) Take by mouth daily. ??? cetirizine (ZyrTEC) 10 mg tablet Take 10 mg by mouth daily. ??? ALipoic Acid/Bioflav/Mv/Gr Tea (ULTRA FRANCOIS ORAL) Take by mouth daily. ??? RESVERATROL ORAL Take by mouth daily. ??? COLLAGEN MISC by [facility].(Non-Drug; Combo Route) route daily. ??? NORTREL 1/35, 28, 1-35 mg-mcg tablet Take 1 Tablet by mouth daily. 3 No current facility-administered medications on file prior to visit. Lab Results Component Value Date/Time LDLCALC 103 (H) 07/02/2020 09:17 AM CREAT 0.72 07/02/2020 09:17 AM Lab Results Component Value Date/Time CHOLTOT 203 (H) 07/02/2020 09:17 AM CHOLTOT 217 (H) 01/09/2019 08:31 AM CHOLTOT 228 (H) 01/22/2018 08:32 AM HDL 59 07/02/2020 09:17 AM HDL 49 01/09/2019 08:31 AM HDL 57 01/22/2018 08:32 AM LDLCALC 103 (H) 07/02/2020 09:17 AM LDLCALC 123 (H) 01/09/2019 08:31 AM LDLCALC 134 (H) 01/22/2018 08:32 AM TRIGLYCERIDE 207 (H) 07/02/2020 09:17 AM TRIGLYCERIDE 226 (H) 01/09/2019 08:31 AM TRIGLYCERIDE 185 (H) 01/22/2018 08:32 AM ALT 38 (H) 07/02/2020 09:17 AM AST 39 (H) 07/02/2020 09:17 AM Lab Results Component Value Date/Time CREAT 0.72 07/02/2020 09:17 AM BUN 13 07/02/2020 09:17 AM NA 139 07/02/2020 09:17 AM K 4.2 07/02/2020 09:17 AM CL 103 07/02/2020 09:17 AM CO2 25 07/02/2020 09:17 AM GFR >60 07/02/2020 09:17 AM Lab Results Component Value Date/Time WBC 7.3 07/02/2020 09:17 AM HGB 14.1 07/02/2020 09:17 AM HCT 42.1 07/02/2020 09:17 AM PLT 195 07/02/2020 09:17 AM MCV 104.5 (H) 07/02/2020 09:17 AM Lab Results Component Value Date/Time ALT 38 (H) 07/02/2020 09:17 AM AST 39 (H) 07/02/2020 09:17 AM ALKPHOS 45 07/02/2020 09:17 AM BILITOTAL 0.7 07/02/2020 09:17 AM Lab Results Component Value Date/Time TSH 2.68 07/02/2020 09:17 AM OBJECTIVE: BP 124/88 Pulse 76 Temp 98.1 ??F (36.7 ??C) (Temporal) Ht 5' 3 (1.6 m) Wt 71.2 kg (157 lb) BMI 27.81 kg/m?? Physical Examination: General appearance - alert, well appearing, and in no distress Mental status - alert, oriented to person, place, and time Chest - clear to auscultation, no wheezes, rales or rhonchi, symmetric air entry Heart - normal rate, regular rhythm, normal S1, S2, no murmurs, rubs, clicks or gallops Abdomen - soft, nontender, nondistended, no masses or organomegaly Neurological - alert, oriented, normal speech, no focal findings or movement disorder noted Musculoskeletal - no joint tenderness, deformity or swelling Extremities - no pedal edema noted ASSESSMENT AND PLAN: ICD-10-CM ICD-9-CM 1. Cough R05.9 786.2 -ongoing cough with worsening symptoms after URI 3 months ago -Had negative Covid test since that time, no fevers or chills -coughs up clear phlegm, denies shortness of breath -some associated intermittent wheezing-reports history of asthma symptoms when living in [place] butnot recently -XR CHEST PA AND LATERAL 2 VW -benzonatate (TESSALON) 100 mg capsule TID PRN -Albuterol inhaler as needed -also discussed possibility of reflux worsening coughing at night-see below 2. Gastroesophageal reflux disease, unspecified whether esophagitis present K21.9 530.81 -start trial of PPI x1 month -send update in a couple weeks 3. 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 Benign hypertension I10 401.1 -controlled, BP 124/88 -Continue current medications Followup: Routine Care- sooner if needed documented in this encounter Miscellaneous Notes * Patient Instructions - Michelle Temple NP - 06/08/2021 2:58 PM CDT Chest x-ray today Albuterol inhaler as needed Tessalon three times daily as needed Omeprazole 20 mg once daily X 2-4 weeks Send update in a week or two- call sooner if needed documented in this encounter Plan of Treatment Upcoming Encounters Date Type Department Care Team (Late st Contact Info) Description 11/24/2024 9:30 AM CDT Office Visit [facility] Internal Medicine Medical [facility] [address] [facility] [address] [address] Melani Franklin [facility], [address] [facility] [address] [place] [address] documented as of this encounter Results * XR CHEST PA AND LATERAL 2 VW (06/08/2021 3:28 PM CDT) Anatomical Region Laterality Modality Chest Computed Radiogr aphy 06/08/2021 3:28 PM CDT Impressions 06/08/2021 3:31 PM CDT IMPRESSION: ?? 1. Normal radiographs of the chest. DICTATION LOCATION: Location 1 - [facility] Narrative 06/08/2021 3:31 PM CDT EXAMINATION: ??CHEST [...] radiographs of the chest. DICTATION LOCATION: Location 1 - [facility] Michelle Temple NP DIAGNOSTIC IMAGING ORDERABLES documented in this encounter Visit Diagnoses Diagnosis Cough- Primary Gastroesophageal reflux disease, unspecified whether esophagitis present Postcholecystectomy diarrhea Other postoperative functional disorders Benign hypertension Essential hypertension, benign Cough documented in this encounter Care Teams Economic Consultant Relationship Specialty Start Date End Date Melani Franklin DO [address] [place] [address] [address] [place] [address] PCP - General Internal Medicine 01/02/17 documented as of this encounter
--- OUTSIDE RECORDS SUMMARY | 2024-02-21 16:35 | XMS_ITS | Encounter Summary ---
Author Organization [facility] Address [address] [place] [address] Care Team Providers Care Dock Manager Name Role Phone Melani Franklin DO Primary Care Provider [phone] Reason for Visit * Reason Comments Medication Refill Encounter Details Date Type Department Care Team (Late Contact Info) Description 03/08/2021 Refill [facility] Internal Medicine Medical [place] A [facility] [address] [facility] [address] [address] Felicia Arevalo, [facility] [address] [place] [id number] Social History Tobacco Use Types Packs/Day Years [...] * Telephone Encounter - Nikki Shaw - 03/08/2021 4:28 PM CST Mail to patient: Pt needs call back: Last refilled: 11/09/20 Quantity given: 30 Number of refills: 3 Last appointment: 11/05/20 Next appointment: TABLE OPERATOR documented in this encounter Plan of Treatment Upcoming Encounters Date Type Department Care Team (Late st Contact Info) Description 11/24/2024 9:30 AM CDT Office Visit [facility] Internal Medicine Medical [place] A [facility] [address] [facility] [address] [address] Melani Franklin DO [address] [facility] [address] [place], [place] [phone] documented as of this encounter Visit Diagnoses Not on filedocumented in this encounter Care Teams Dock Manager Relationship Specialty Start Date End Date Melani Franklin DO [address] [facility] [address] [place] [address] PCP - General Internal Medicine 01/02/17 documented as of this encounter
--- OUTSIDE RECORDS SUMMARY | 2024-02-21 16:35 | XMS_ITS | Encounter Summary ---
Author Organization [facility] Address [address] [place] [address] Care Team Providers Care Manager Delivery Name Role Phone Melani Franklin DO Primary Care Provider [phone] Reason for Visit * Auth/Cert Specialty Diagnoses / Procedures Referred By Tyrone baxter Referred To Contact Laboratory [facility] A [address] [facility], [place] [address] Referral ID Status Reason Start Date Expiration Date Visits Re quested Visits Authorized [id number] 1 1 Encounter Details Date Type Department Care Team (Latest Contact Info) Description 07/02/2020 9:15 AM CDT - 07/02/2020 11:59 PM CDT Hospital Encounter [facility] Laboratory Services Medical [place] A [address] [facility], [place] [address] Melani Franklin DO [address] [place] [address] Discharge Disposition: Home or Self [...] 06/19/2019 02/21/2021 documented as of this encounter Plan of Treatment Upcoming Encounters Date Type Department Care Team (Late st Contact Info) Description 11/24/2024 9:30 AM CDT Office Visit [facility] Internal Medicine Medical [place] A [place] [address] [facility] [facility] [address] [address] Melani Franklin, [address] [place] [address] documented as of this encounter Procedures Procedure Name Priority Date/Time Associated Diagnosis Comments TSH REFLEXIVE Routine 07/02/2020 9:17 AM CDT Routine general medical examination at a health care facility CBC WITH DIFFERENTIAL Routine 07/02/2020 9:17 AM CDT Routine general medical examination at a [facility] care facility LIPID PANEL Routine 07/02/2020 9:17 AM CDT Routine general medical examination at a [facility] care facility COMPREHENSIVE METABOLIC PANEL Routine 07/02/2020 9:17 AM CDT Routine general medical examination at a [facility] care facility documented in this encounter Results * (ABNORMAL) CBC WITH DIFFERENTIAL (07/02/2020 9:17 AM CDT) WBC 7.3 4.0 - 9.8 K/uL 07/02/2020 9:41 AM CDT [facility] RBC 4.03 3.90 - 4.90 M/uL 07/02/2020 9:41 AM CDT [facility] HEMOGLOBIN 14.1 11.8 - 14.8 g/dL 07/02/2020 9:41 AM CDT [facility] HEMATOCRIT 42.1 35.5 - 44.0 % 07/02/2020 9:41 AM CDT [facility] MCV 104.5(H) 82.0 - 99.0 fL 07/02/2020 9:41 AM CDT [facility] MCH 35.0(H) 27.2 - 32.6 pg 07/02/2020 9:41 AM CDT [facility] - [facility] MCHC 33.5 31.5 - 35.5 g/dL 07/02/2020 9:41 AM CDT [facility] RDW 12.3 11.5 - 14.5 % 07/02/2020 9:41 AM CDT [facility] RDW-STDEV 47.4 37.1 - 48.7 fL 07/02/2020 9:41 AM CDT [facility] PLATELETS 195 140 - 350 K/uL 07/02/2020 9:41 AM CDT [facility] MPV 11.9 9.3 - 12.4 fL 07/02/2020 9:41 AM CDT [facility] NEUTROPHILS 55 % 07/02/2020 9:41 AM CDT [facility] LYMPHOCYTES 36 % 07/02/2020 9:41 AM CDT [facility] MONOCYTES 7 % 07/02/2020 9:41 AM CDT [facility] EOSINOPHILS 1 % 07/02/2020 9:41 AM CDT [facility] BASOPHILS 0 % 07/02/2020 9:41 AM CDT [facility] IMMATURE GRANULOCYTES 0 % 07/02/2020 9:41 AM CDT [facility] NEUTROPHIL ABSOLUTE 4.00 1.90 - 7.00 K/uL 07/02/2020 9:41 AM CDT [facility] LYMPHOCYTE ABSOLUTE 2.66 0.70 - 4.50 K/uL 07/02/2020 9:41 AM CDT [facility] MONOCYTE ABSOLUTE 0.53 0.10 - 1.30 K/uL 07/02/2020 9:41 AM CDT [facility] EOSINOPHIL ABSOLUTE 0.06 0.00 - 0.70 K/uL 07/02/2020 9:41 AM CDT [facility] BASOPHILS ABSOLUTE 0.03 0.00 - 0.20 K/uL 07/02/2020 9:41 AM CDT [facility] IMMATURE GRANULOCYTES ABSOLUTE 0.02 0.00 - 0.03 K/uL 07/02/2020 9:41 AM CDT [facility] Blood Venipuncture / Unknown 07/02/2020 9:17 AM CDT 07/02/2020 9:28 AM CDT Melani Franklin DO HEMATOLOGY ORDERABLE S Infectious [facility] - [facility] CLIA# [id number] [address] [place] [address] * (ABNORMAL) LIPID PANEL (07/02/2020 9:17 AM CDT) [facility] CHOLESTEROL 203(H) <200 mg/dL 07/02/2020 10:10 AM T [facility] LABORATORY [facility] - [facility] TRIGLYCERIDE 207(H) <150 mg/dL 07/02/2020 10:10 AM T [facility] HDL 59 40 - 59 mg/dL 07/02/2020 10:10 AM T [facility] LDL CALCULATED 103(H) <100 mg/dL 07/02/2020 10:10 AM [facility] [facility] NON-HDL CHOLESTEROL 144(H) <130 mg/dL 07/02/2020 10:10 AM [facility] Blood Venipuncture / Unknown 07/02/2020 9:17 AM CDT 07/02/2020 9:28 AM CDT Narrative [facility] LABORATORY [facility] - . [place] - 07/02/2020 10:10 AM CDT TOTAL CHOLESTEROL ??mg/dL ??Desirable <200 ??Borderline high 200-239 ??High >=240 TRIGLYCERIDES ??mg/dL ??Normal <150 ??Borderline high 150-199 ??High 200-499 ??Very high >=500 HDL CHOLESTEROL ??mg/dL ??Low <40 ??Normal 40-59 ??Desirable >=60 NON HDL CHOLESTEROL mg/dL ??Optimal <130 ??Near Optimal 130-159 ??Borderline High 160-189 ??Very High >=190 CALCULATED LDL mg/dL ??LDL <70, OPTIMAL if have Atherosclerotic cardiovascular disease (ASCVD) ??or intermediate or higher (>7.5%) 10 year risk of ASCVD including most adults ??with diabetes. ??LDL <100, Optimal in adult patients with low (<7.5%) 10 year ASCVD risk ??LDL 100-160, Suboptimal ??LDL >160, High ??LDL >190, Very high ATPIII Guidelines Reference Ranges for Lipid Panels (NCEP/AMA) . Melani Franklin DO CHEMISTRY ORDERABLES [facility] LABORATORY SERVICES - [facility] CLIA# [id number] [address] [place] [address] * (ABNORMAL) COMPREHENSIVE METABOLIC PANEL (07/02/2020 9:17 AM CDT) SODIUM 139 136 - 145 mmol/L 07/02/2020 10:10 AM T [facility] POTASSIUM 4.2 3.5 - 5.0 mmol/L 07/02/2020 10:10 AM CDT [facility] CHLORIDE 103 98 - 107 mmol/L 07/02/2020 10:10 AM T [facility] CO2 25 22 - 29 mmol/L 07/02/2020 10:10 AM T [facility] CALCIUM 9.3 8.6 - 10.2 mg/dL 07/02/2020 10:10 AM T [facility] BUN 13 6 - 20 mg/dL 07/02/2020 10:10 AM T [facility] CREATININE 0.72 0.51 - 0.95 mg/dL 07/02/2020 10:10 AM T [facility] GLUCOSE 84 74 - 99 mg/dL 07/02/2020 10:10 AM T [facility] TOTAL PROTEIN 7.1 6.7 - 8.6 g/dL 07/02/2020 10:10 AM T [facility] ALBUMIN 4.6 3.5 - 5.2 g/dL 07/02/2020 10:10 AM T [facility] BILIRUBIN TOTAL 0.7 0.3 - 1.2 mg/dL 07/02/2020 10:10 AM T [facility] ALKALINE PHOSPHATASE 45 35 - 104 U/L 07/02/2020 10:10 AM T [facility] AST 39(H) <33 U/L 07/02/2020 10:10 AM T [facility] ALT 38(H) <34 U/L 07/02/2020 10:10 AM CDT [facility] GFR >60 mL/min/1.7 3 sq meter 07/02/2020 10:10 AM CDT [facility] Comment: eGFR has not been validated for use in the elderly (> 70 years of age), women, patients with serious co-morbid conditions, or persons with extremes of body size or muscle mass and should also be interpreted with caution in patients with acute kidney failure, dialysis dependent patients, patients reporting exceptional dietary intake (e.g. vegetarian diet, high protein diets, creatine supplementation), and patients with severe liver disease. Based on National Kidney Disease Education Program If patient is , please refer to the GFR result. GFR, >60 mL/min/1.7 3 sq meter 07/02/2020 10:10 AM CDT [facility] ANION GAP 11 8 - 16 mmol/L 07/02/2020 10:10 AM T [facility] Blood Venipuncture / Unknown 07/02/2020 9:17 AM CDT 07/02/2020 9:28 AM CDT Narrative [facility] - 07/02/2020 10:10 AM CDT Samples containing indocyanine green cause interferences on Total and/or Direct Bilirubin and must not be measured. Melani Franklin DO CHEMISTRY ORDERABLES [facility]# [id number] [address] [place], [place] [address] [place] [address] * TSH REFLEXIVE (07/02/2020 9:17 AM CDT) TSH 2.68 0.27 - 4.20 uIU/mL 07/02/2020 10:20 AM CDT [facility] Blood Venipuncture / Unknown 07/02/2020 9:17 AM CDT 07/02/2020 9:28 AM CDT Melani Franklin DO CHEMISTRY ORDERABLES Performing Organization Address [facility]/ZIP Co de Phone Number [facility] LABORATORY SERVICES [facility]# [id number] [address] [place], [place] [id number] documented in this encounter Visit Diagnoses Diagnosis Routine general medical examination at a health care facility documented in this encounter Care Teams Manager Delivery Relationship Specialty Start Date End Date Melani Franklin DO [address] [place] [address] PCP - General Internal Medicine 01/02/17 documented as of this encounter
--- OUTSIDE RECORDS SUMMARY | 2024-02-21 16:35 | XMS_ITS | Encounter Summary ---
Author Organization [facility] Address [address] [place] [address] Care Team Providers Care Sharepoint Web Developer Name Role Phone Melani Franklin DO Primary Care Provider [phone] Reason for Visit * Reason Comments Medication Refill Encounter Details Date Type Department Care Team (Late st Contact Info) Description 03/09/2021 Refill [facility] Internal Medicine Medical [facility] [address] [place] [address] Melani Franklin, [address] [address] Insomnia, unspecified type Social History [...] Telephone Encounter - Janine Benito LPN - 03/09/2021 4:03 PM CST Mail to patient: Pt needs call back: Last refilled:12/15/20 Quantity given:30 Number of refills:0 Last appointment:11/05/20 Next appointment:none CTOR STAGE documented in this encounter Plan of Treatment Upcoming Encounters Date Type Department Care Team (Late st Contact Info) Description 11/24/2024 9:30 AM CDT Office Visit [facility] Internal Medicine Medical [place] A [place] [address] [facility] [address] [address] Melani Franklin DO [address] [facility] [facility] [address] [place], [place] [id number] documented as of this encounter Visit Diagnoses Diagnosis Insomnia, unspecified type documented in this encounter Care Teams Sharepoint Web Developer Relationship Specialty Start Date End Date Melani Franklin DO [address] [facility] [facility] [address] [place] [address] PCP - General Internal Medicine 01/02/17 documented as of this encounter
--- OUTSIDE RECORDS SUMMARY | 2024-02-21 16:35 | XMS_ITS | Encounter Summary ---
Author Organization [facility] Address [address] [place] [address] Care Team Providers Care Oracle Etl Developer Name Role Phone Melani Franklin DO Primary Care Provider [phone] Reason for Visit * Reason Onset Date Comments Needs Orders Written 02/23/2021 Encounter Details Date Type Department Care Team (Late st Contact Info) Description 02/23/2021 Telephone [facility] Internal Medicine Medical [facility] [address] [address] Melani Franklin, DO [address] [facility] [address] [place] [address] Needs Orders Written Social History Tobacco Use Types Packs/Day Years [...] * Telephone Encounter - Kayla Meyers - 02/23/2021 1:48 PM CST Faxed order to [phone] NEER TECHNICAL STAFF * Telephone Encounter - Melani Franklin DO - 02/23/2021 1:39 PM CST Please print and fax the mammo order I have placed. NEER TECHNICAL STAFF * Telephone Encounter - Kayla Meyers - 02/23/2021 10:40 AM CST Delores with [facility] calling for diagnostic mammogram and ultrasound for left breast due to results of screening. She has already given info to patient and scheduled her for 03/08/21. Fax order to [phone] Ph. [phone] NEER TECHNICAL STAFF documented in this encounter Plan of Treatment Upcoming Encounters Date Type Department Care Team (Late st Contact Info) Description 11/24/2024 9:30 AM CDT Office Visit [facility] Internal Medicine Medical [facility] [address] [address] Melani Franklin DO [address] [facility] [address] [place], [place] [id number] documented as of this encounter Visit Diagnoses Diagnosis Abnormal mammogram- Primary Abnormal mammogram, unspecified documented in this encounter Care Teams Oracle Etl Developer Relationship Specialty Start Date End Date Melani Franklin DO [address] [place] [address] PCP - General Internal Medicine 01/02/17 documented as of this encounter
--- OUTSIDE RECORDS SUMMARY | 2024-02-21 16:35 | XMS_ITS | Encounter Summary ---
Author Organization [facility] Address [address] [place] [address] Care Team Providers Care Fitness Instructor Name Role Phone Melani Franklin DO Primary Care Provider [phone] Encounter Details Date Type Department Care Team (Latest Contact Info) Description 02/22/2021 1:10 PM ACTIVE DIRECTORY ENGINEER - 02/22/2021 11:59 PM [facility] Hospital Encounter [facility] Medical [place] A [address] [place] [address] [facility], External Provider [address] [place] [address] Discharge Disposition: Home or Self Care Social [...] daily. RESVERATROL ORAL Take by mouth daily. valACYclovir (VALTREX) 1 gram tabletIndications:Cold sore TAKE 2 TABLETS BY MOUTH TWICE DAILY 4 Tablet 3 02/21/2021 06/24/2021 ALPRAZolam (XANAX) 0.25 mg tabletIndications:Insom adis, unspecified type TAKE 1 TO 2 TABLETS(0.25 TO 0.5 MG) BY MOUTH EVERY NIGHT NEEDED FOR ANXIETY OR INSOMNIA 30 Tablet 12/15/2020 03/09/2021 lisinopril-hydroCHLOROt hiazide (ZESTORETIC) 10-12.5 mg tablet Take 1 Tablet by mouth daily. 90 Tablet 3 12/07/2020 01/09/2022 traZODone (DESYREL) 50 mg tablet Take 1-2 Tablets (50-100 mg) by mouth daily at bedtime. 60 Tablet 12/03/2020 10/12/2021 montelukast (Singulair) 10 mg tablet Take 1 Tablet (10 mg) by mouth daily at bedtime. 30 Tablet 3 11/09/2020 03/08/2021 zolpidem (AMBIEN) 5 mg tabletIndications:Insom adis, unspecified [...] MOUTH DAILY 60 Packet 3 06/03/2020 03/25/2021 escitalopram oxalate (LEXAPRO) 20 mg tabletIndications:Mild episode of recurrent major depressive disorder TAKE 1 TABLET(20 MG) BY MOUTH DAILY 90 Tablet 3 03/19/2020 03/04/2021 documented as of this encounter Plan of Treatment Upcoming Encounters Date Type Department Care Team (Late st Contact Info) Description 11/24/2024 9:30 AM CDT Office Visit [facility] Internal Medicine Medical [place] [facility] [address] [address] [address] Melani Franklin, DO [address] [facility] [address] [place] [address] documented as of this encounter Procedures Procedure Name Priority Date/Time Associated Diagnosis Comments MAMMO PRIOR STUDY Routine 02/22/2021 1:1 0 PM ACTIVE DIRECTORY ENGINEER Follow-up exam documented in this encounter Results * MAMMO PRIOR STUDY (02/22/2021 1:10 PM ACTIVE DIRECTORY ENGINEER) Narrative 04/18/2022 1:08 PM ACTIVE DIRECTORY ENGINEER This exam was auto finalized to allow images to be scanned to PACS. External Provider [facility] DIAGNOSTIC IMAGI NG ORDERABLES documented in this encounter Visit Diagnoses Diagnosis Follow-up exam Unspecified follow-up examination documented in this encounter Care Teams Fitness Instructor Relationship Specialty Start Date End Date Melani Franklin DO [address] [place] [address] PCP - General Internal Medicine 01/02/17 documented as of this encounter
--- OUTSIDE RECORDS SUMMARY | 2024-02-21 16:35 | XMS_ITS | Encounter Summary ---
Author Organization [facility] Address [address] [place] [address] Care Team Providers Care Hydro Station Operator Name Role Phone Melani Franklin DO Primary Care Provider [phone] Reason for Visit * Reason Comments Medication Refill Encounter Details Date Type Department Care Team (Late st Contact Info) Description 05/22/2021 Refill [facility] Internal Medicine Medical [facility] [address] [facility] [address] [place] [address] Melani Franklin, [address] [address] Insomnia, unspecified type Social History [...] encounter Miscellaneous Notes * Telephone Encounter - Spencer Avendaño RMA - 05/22/2021 9:01 PM CDT Mail to patient: Pt needs call back: Last refilled:11-07-20 Quantity given:30 Number of refills:5 Last appointment:11-05-20 Next appointment:09-01-21 documented in this encounter Plan of Treatment Upcoming Encounters Date Type Department Care Team (Late st Contact Info) Description 11/24/2024 9:30 AM CDT Office Visit [facility] Internal Medicine Medical [place] [facility] [address] [facility] [address] [address] Melani Franklin DO [address] [facility] [address] [place], [place] [address] documented as of this encounter Visit Diagnoses Diagnosis Insomnia, unspecified type documented in this encounter Care Teams Hydro Station Operator Relationship Specialty Start Date End Date Melani Franklin DO [address] [facility] [address] [place] [address] PCP - General Internal Medicine 01/02/17 documented as of this encounter
--- OUTSIDE RECORDS SUMMARY | 2024-02-21 16:35 | XMS_ITS | Encounter Summary ---
Author Organization [facility] Address [address] [place] [address] Care Team Providers Care Track Manager Name Role Phone Melani Franklin DO Primary Care Provider [phone] Reason for Referral * Eval and Treat (Routine) - Closed Specialty Diagnoses / Procedures Referred By Contact Referred To Contact Gastroenterology / Perioperative Diagnoses Screening for colon cancer Procedures COLON Melani Franklin DO [address] [facility] [facility] [address] [place] [address] Barrington Bueno MD [address] [facility] [place] [address] Referral ID Status Reason Start Date Expiration Date V isits Requested Visits Authorized [id number] Closed CRS to Schedule 06/24/2020 06/25/2021 1 1 Reason for Visit * Reason Comments Physical Encounter Details Date Type Department Care Team (Late st Contact Info) Description 06/24/2020 9:20 AM CDT Office Visit [facility] Internal Medicine Medical [place] [address] [facility] [address] [address] Melani Franklin DO [address] [facility] [facility] [address] [place] [address] Routine general medical examination at a health care facility (Primary Dx); Migraine with aura and without status migrainosus, not intractable; Insomnia, unspecified type; Benign hypertension; Mild episode of recurrent major depressive disorder; Screening for colon cancer Social History Tobacco Use Types Packs/Day Years [...] Sign Reading Time Taken Comments Blood Pressure 138/84 06/24/2020 9:59 AM CDT Pulse 80 06/24/2020 9:59 AM CDT Temperature - - Respiratory Rate - - Oxygen Saturation 100% 06/24/2020 9:59 AM CDT Inhaled Oxygen Concentration - - Weight 69.9 kg (154 lb) 06/24/2020 9:59 AM CDT Height 157.5 cm (5' 2 ) 06/24/2020 9:59 AM CDT Body Mass Index 28.17 06/24/2020 9:59 AM CDT documented in this encounter Progress Notes * Melani Franklin, - 06/24/2020 10:09 AM CDT HISTORY OF PRESENT ILLNESS Jody Mason, a 50 y.o. female presents with a Chief Complaint of Physical Subjective HPI Here for PE. The medications, allergies, past medical history, family history, and social history are all reviewed and updated at this visit Wakes between midnight and 1 and again a few hours later. Takes a full tab of ambien nightly. Triedmelatonin but it didn't work. Amitriptyline helped but then stopped working as much. MDD- very well controlled with the Lexapro. HTN- Patient is compliant with current antihypertensive medications. Denies BRANNON, syncope, focal neuro deficits. Blood pressures at home aren't check. Migraine- a little more frequently, maybe due to lack of sleep. Patient Active Problem List Diagnosis Date Noted ??? Mild episode of recurrent major depressive disorder 06/24/2020 ??? Benign hypertension 01/02/2017 ??? Postcholecystectomy diarrhea 01/02/2017 ??? Migraine with aura and without status migrainosus, not intractable 01/02/2017 ??? Insomnia 01/02/2017 Current Outpatient Medications Medication Instructions ??? ALipoic Acid/Bioflav/Mv/Gr Tea (ULTRA FRANCOIS ORAL) Oral, DAILY ??? cetirizine (ZYRTEC) 10 mg, Oral, DAILY ??? cholestyramine, with sugar, (QUESTRAN) 4 gram Powder in Packet DISSOLVE CONTENTS OF 1 PACKET INLIQUID AND TAKE BY MOUTH DAILY ??? clobetasoL (TEMOVATE) 0.05 % Solution Topical, TWO TIMES DAILY ??? COLLAGEN MISC Misc.(Non-Drug; Combo Route), DAILY ??? escitalopram oxalate (LEXAPRO) 20 mg tablet TAKE 1 TABLET(20 MG) BY MOUTH DAILY ??? glucosamine/chondr evans A sod (OSTEO BI-FLEX ORAL) Oral, DAILY ??? HYOSCYAMINE 0.125 mg Tablet, Sublingual DISSOLVE 1 TABLET UNDER THE TONGUE FOUR TIMES DAILY NEEDED ??? lisinopril-hydroCHLOROthiazide (ZESTORETIC) 10-12.5 mg tablet 1 Tablet, Oral, DAILY ??? montelukast (SINGULAIR) 10 mg, Oral, DAILY AT BEDTIME ??? naproxen (NAPROSYN) 500 mg tablet TAKE 1 TABLET BY MOUTH TWICE DAILY ??? NORTREL 1/35, 28, 1-35 mg-mcg tablet 1 Tablet, Oral, DAILY ??? raNITIdine (ZANTAC) 150 mg, Oral, TWO TIMES DAILY ??? RESVERATROL ORAL Oral, DAILY ??? SUMAtriptan (IMITREX) 100 mg tablet TAKE 1 TABLET BY MOUTH AT ONSET OF MIGRAINE. MAY REPEAT AFTER 2 HOURS IF HEADACHE RETURNS. NOT TO EXCEED 2 TABLETS IN 24 HOURS ??? valACYclovir (VALTREX) 1 gram tablet TAKE 2 TABLETS BY MOUTH TWICE DAILY ??? zolpidem (AMBIEN) 5 mg tablet TAKE [...] Positive for sleep disturbance. Negative for dysphoric mood, self-injury and suicidal ideas. The patient is not nervous/anxious. Objective PHYSICAL EXAM BP 138/84 Pulse 80 Ht 5' 2 (1.575 m) Wt 69.9 kg (154 lb) SpO2 100% No BMI 28.17 kg/m?? Physical Exam Constitutional: General: She is not in acute distress. Appearance: She is well-developed. She is not diaphoretic. HENT: Head: Normocephalic and atraumatic. Mouth/Throat: Pharynx: No oropharyngeal exudate. Eyes: General: No scleral icterus. Pupils: Pupils [...] oriented to person, place, and time. Psychiatric: Behavior: Behavior normal. Thought Content: Thought content normal. Judgment: Judgment normal. Procedures Assessment ASSESSMENT and PLAN: ICD-10-CM ICD-9-CM 1. Routine general medical examination at a health care facility Z00.00 V70.0 TSH REFLEXIVE COMPREHENSIVE METABOLIC PANEL LIPID PANEL CBC WITH DIFFERENTIAL 2. Migraine with aura and without status migrainosus, not intractable G43.109 346.00 amitriptyline (ELAVIL) 25 mg tablet 3. Insomnia, unspecified type G47.00 780.52 amitriptyline (ELAVIL) 25 mg tablet 4. Benign hypertension I10 401.1 5. Mild episode of recurrent major depressive disorder F33.0 296.31 6. Screening for colon cancer Z12.11 V76.51 AMB REFERRAL TO GASTROENTEROLOGY Health maintenance issues were discussed with Jody Mason. This included colonoscopy, bone density, calcium replacement, exercise, diet, mammograms (neg 11/2019), pap smears (neg 06/[address] Lainez), self breast exams, immunizations and screening labs. HTN well controlled on current meds. Migraines well controlled on current meds. Insomnia uncontrolled, refill Amitriptyline, this will help her migraines as well. Ambien ok for rare prn use. MDD well controlled on current meds. documented in this encounter Plan of Treatment Upcoming Encounters Date Type Department Care Team (Late st Contact Info) Description 11/24/2024 9:30 AM CDT Office Visit [facility] Internal Medicine Medical [place] [address] [address] [facility] [address] [place] [address] Melani Franklin DO [address] [address] Scheduled Referrals Name Type Priority Associated Diagnoses Order Schedule AMB REFERRAL TO GASTROENTEROLOGY Outpatient Referral Routine Screening for colon cancer Ordered: 06/24/2020 documented as of this encounter Results * (ABNORMAL) CBC WITH DIFFERENTIAL (07/02/2020 9:17 AM CDT) WBC 7.3 4.0 - 9.8 K/uL 07/02/2020 9:41 AM CDT [facility] LABORATORY SERVICES - [facility] RBC 4.03 3.90 - 4.90 M/uL 07/02/2020 9:41 AM CDT [facility] LABORATORY SERVICES - [facility] HEMOGLOBIN 14.1 11.8 - 14.8 g/dL 07/02/2020 9:41 AM CDT [facility] LABORATORY SERVICES - [facility] HEMATOCRIT 42.1 35.5 - 44.0 % 07/02/2020 9:41 AM CDT [facility]AT[facility] - [facility] [place] MCV 104.5(H) 82.0 - 99.0 fL 07/02/2020 9:41 AM CDT [facility] - [facility] [place] MCH 35.0(H) 27.2 - 32.6 pg 07/02/2020 9:41 AM CDT [facility] LABORATORY SERVICES - [facility] MCHC 33.5 31.5 - 35.5 g/dL 07/02/2020 9:41 AM CDT [facility]ORATORY SERVICES - [facility] RDW 12.3 11.5 - 14.5 % 07/02/2020 9:41 AM CDT [facility]AT[facility] SERVICES - [facility] RDW-STDEV 47.4 37.1 - 48.7 fL 07/02/2020 9:41 AM CDT [facility] - [facility] [place] PLATELETS 195 140 - 350 K/uL 07/02/2020 9:41 AM CDT [facility]ATORY SERVICES - [facility] MPV 11.9 9.3 - 12.4 fL 07/02/2020 9:41 AM CDT [facility] - [facility] [place] NEUTROPHILS 55 % 07/02/2020 9:41 AM CDT [facility] - [facility] [place] LYMPHOCYTES 36 % 07/02/2020 9:41 AM CDT [facility] - [facility] [place] MONOCYTES 7 % 07/02/2020 9:41 AM CDT [facility] - [facility] EOSINOPHILS 1 % 07/02/2020 9:41 AM CDT [facility] - [facility] BASOPHILS 0 % 07/02/2020 9:41 AM CDT [facility] - [facility] IMMATURE GRANULOCYTES 0 % 07/02/2020 9:41 AM CDT [facility] - [facility] NEUTROPHIL ABSOLUTE 4.00 1.90 - 7.00 K/uL 07/02/2020 9:41 AM CDT [facility] - [facility] LYMPHOCYTE ABSOLUTE 2.66 0.70 - 4.50 K/uL 07/02/2020 9:41 AM CDT [facility] - [facility] [place] MONOCYTE ABSOLUTE 0.53 0.10 - 1.30 K/uL 07/02/2020 9:41 AM CDT [facility] - [facility] EOSINOPHIL ABSOLUTE 0.06 0.00 - 0.70 K/uL 07/02/2020 9:41 AM CDT [facility] LAB[facility]ATORY SERVICES - [facility] [place] BASOPHILS ABSOLUTE 0.03 0.00 - 0.20 K/uL 07/02/2020 9:41 AM CDT [facility]ATORY SERVICES - [facility] [place] IMMATURE GRANULOCYTES ABSOLUTE 0.02 0.00 - 0.03 K/uL 07/02/2020 9:41 AM CDT [facility] LABORATORY SERVICES - [facility] Blood Venipuncture / Unknown 07/02/2020 9:17 AM CDT 07/02/2020 9:28 AM CDT Melani Franklin DO HEMATOLOGY ORDERABLE S [facility] [id number] [address] [place] [address] * (ABNORMAL) LIPID PANEL (07/02/2020 9:17 AM CDT) CHOLESTEROL 203(H) <200 mg/dL 07/02/2020 10:10 AM CDT [facility] LABORATORY [facility] - [facility] TRIGLYCERIDE 207(H) <150 mg/dL 07/02/2020 10:10 AM T [facility] LABORATORY [facility] - [facility] HDL 59 40 - 59 mg/dL 07/02/2020 10:10 AM T [facility] LABORATORY [facility] LDL CALCULATED 103(H) <100 mg/dL 07/02/2020 10:10 AM T [facility] LABORATORY [facility] - [facility] NON-HDL CHOLESTEROL 144(H) <130 mg/dL 07/02/2020 10:10 AM CDT [facility] LABORATORY [facility] - [facility] Blood Venipuncture / Unknown 07/02/2020 9:17 AM CDT 07/02/2020 9:28 AM CDT Narrative [facility]ATORY SERVICES - [facility] [place] - 07/02/2020 10:10 AM [...] (NCEP/AMA) . Melani Franklin DO CHEMISTRY ORDERABLES [facility] LABORATORY SERVICES - [facility] CLRI# [id number] [address] [place] [address] * (ABNORMAL) COMPREHENSIVE METABOLIC PANEL (07/02/2020 9:17 AM CDT) SODIUM 139 136 - 145 mmol/L 07/02/2020 10:10 AM CDT [employer] LABORATORY SERVICES - [facility] POTASSIUM 4.2 3.5 - 5.0 mmol/L 07/02/2020 10:10 AM CDT [facility] LABORATORY SERVICES - [facility] CHLORIDE 103 98 - 107 mmol/L 07/02/2020 10:10 AM CDT [facility] LABORATORY SERVICES - [facility] CO2 25 22 - 29 mmol/L 07/02/2020 10:10 AM CDT [facility]ATORY SERVICES - [facility] CALCIUM 9.3 8.6 - 10.2 mg/dL 07/02/2020 10:10 AM CDT [facility]ATORY SERVICES - [facility] [place] BUN 13 6 - 20 mg/dL 07/02/2020 10:10 AM CDT [facility]ATORY SERVICES - [facility] [place] CREATININE 0.72 0.51 - 0.95 mg/dL 07/02/2020 10:10 AM CDT [employer] LABORATORY SERVICES - [facility] GLUCOSE 84 74 - 99 mg/dL 07/02/2020 10:10 AM [facility] [employer] LABORATORY [facility] - . [facility] TOTAL PROTEIN 7.1 6.7 - 8.6 g/dL 07/02/2020 10:10 AM [facility] [employer] LABORATORY [facility] - . [facility] ALBUMIN 4.6 3.5 - 5.2 g/dL 07/02/2020 10:10 AM [facility] [employer] LABORATORY [facility] - . [facility] BILIRUBIN TOTAL 0.7 0.3 - 1.2 mg/dL 07/02/2020 10:10 AM [facility] [employer] LABORATORY [facility] - . [facility] ALKALINE PHOSPHATASE 45 35 - 104 U/L 07/02/2020 10:10 AM [facility] [employer] [facility] AST 39(H) <33 U/L 07/02/2020 10:10 AM [facility] [employer] [facility] ALT 38(H) <34 U/L 07/02/2020 10:10 AM [facility] [employer] [facility] GFR >60 mL/min/1.7 3 sq meter 07/02/2020 10:10 AM [facility] [employer] [facility] Comment: eGFR has not been validated [...] mL/min/1.7 3 sq meter 07/02/2020 10:10 AM [facility] [employer] LABORATORY SERVICES [facility] ANION GAP 11 8 - 16 mmol/L 07/02/2020 10:10 AM [facility] [employer] [facility] Blood Venipuncture / Unknown 07/02/2020 9:17 AM CDT 07/02/2020 9:28 AM [facility] [employer] LABORATORY [facility] - 07/02/2020 10:10 AM CDT Samples containing indocyanine green cause interferences on Total and/or Direct Bilirubin and must not be measured. Melani Franklin DO CHEMISTRY ORDERABLES Performing Organization Address City/[facility]/ZIP Co de Phone Number [facility] [employer] [facility]# [id number] [address] [place] [address] * TSH REFLEXIVE (07/02/2020 9:17 AM CDT) TSH 2.68 0.27 - 4.20 uIU/mL 07/02/2020 10:20 AM CDT [facility] [employer] [facility] Blood Venipuncture / Unknown 07/02/2020 9:17 AM CDT 07/02/2020 9:28 AM CDT Melani Franklin DO CHEMISTRY ORDERABLES Performing Organization Address [facility] [place]/[facility] Co de Phone Number [facility] [employer] [facility]# [id number] [address] [place] [address] documented in this encounter Visit Diagnoses Diagnosis Routine general medical examination at a health care facility- Primary Migraine with aura and without status migrainosus, not intractable Migraine with aura, without mention of intractable migraine without mention of status migrainosus Insomnia, unspecified type Benign hypertension Essential hypertension, benign Mild episode of recurrent major depressive disorder Screening for colon cancer Special screening for malignant neoplasms, colon documented in this encounter Care Teams Track Manager Relationship Specialty Start Date End Date Melani Franklin DO [address] [place] [address] PCP - General Internal Medicine 01/02/17 documented as of this encounter
--- OUTSIDE RECORDS SUMMARY | 2024-02-21 16:35 | XMS_ITS | Encounter Summary ---
Author Organization [facility] Address [address] [place] [address] Care Team Providers Care Transit Proof Machine Operator Name Role Phone Melani Franklin DO Primary Care Provider [phone] Encounter Details Date Type Department Care Team (Latest Contact Info) Description 03/14/2021 1:15 PM CATTLE EXAMINER - 03/14/2021 11:[address] [facility] Hospital Encounter [facility] [place] [address] [place] [address] [facility], External Provider [address] [place] [address] Discharge Disposition: Home or Self Care Social [...] Visit [facility] Internal Medicine Medical [place] [facility] [address] [facility] [address] [address] Melani Franklin, DO [address] [facility] [address] [place] [address] documented as of this encounter Procedures Procedure Name Priority Date/Time Associated Diagnosis Comments MAMMO PRIOR STUDY Routine 03/14/2021 1:1 5 PM CATTLE EXAMINER Follow-up exam documented in this encounter Results * MAMMO PRIOR STUDY (03/14/2021 1:15 PM CATTLE EXAMINER) Narrative 04/18/2022 1:08 PM CATTLE EXAMINER This exam was auto finalized to allow images to be scanned to PACS. External Provider [facility] DIAGNOSTIC IMAGI NG ORDERABLES documented in this encounter Visit Diagnoses Diagnosis Follow-up exam Unspecified follow-up examination documented in this encounter Care Teams Transit Proof Machine Operator Relationship Specialty Start Date End Date Melani Franklin DO [address] [place] [address] PCP - General Internal Medicine 01/02/17 documented as of this encounter
--- OUTSIDE RECORDS SUMMARY | 2024-02-21 16:35 | XMS_ITS | Encounter Summary ---
Author Organization [facility] Address [address] [place] [address] Care Team Providers Care Legal Process Specialist Name Role Phone Melani Franklin DO Primary Care Provider [phone] Reason for Visit * Auth/Cert Specialty Diagnoses / Procedures Referred By Tyrone baxter Referred To Contact Perioperative Diagnoses Screening for colon cancer Procedures COLONOSCOPY [facility] [address] [place] [address] Referral ID Status Reason Start Date Expiration Date Visits Re quested Visits Authorized [id number] 1 1 Encounter Details Date Type Department Care Team (Late st Contact Info) Description 08/26/2020 12:02 PM CDT Anesthesia Event [facility] [address] [place] [address] Karla Jones MD [address] [place] [address] Anesthesia Record Procedure Summary Procedure Name Responsible Anesthesiologist Anesthesia Start Time Anesthesia Stop Time COLONOSCOPY (Anus) Karla Jones MD 08/26/20 1202 08/26/20 1242 Events Date Time Event Comment 08/26/2020 1157 1159 AN Equip Check Anesthesia eq uipment and materials checked in accordance with local policy. 1202 In Room This event disp lays the In Room time documented in the Surgical Log. Deleting this event will not remove it from the log but will remove it from the Grid and Graph timeline. 1202 An Start 1202 An Start Data 1203 Pre-Induction Immediate pre- induction anesthetic assessment performed. Vital signs as noted on graphic. 1206 An Induction 1207 Anesthesia Ready 1210 Procedure Start This event d isplays the Procedure Start time documented in the Surgical Log. Deleting this event will not remove it from the log but will remove it from the Grid and Graph timeline. 1226 Procedure Stop This event di splays the Procedure Stop time documented in the Surgical Log. Deleting this event will not remove it from the log but will remove it from the Grid and Graph timeline. 1230 Out of Room This event disp lays the Out of Room time documented in the Surgical Log. Deleting this event will not remove it from the log but will remove it from the Grid and Graph timeline. 1239 an stop data 1242 An Stop Meds Name Total lidocaine (XYLOCAINE) 2% injection 60 mg propofol (DIPRIVAN) 10??mg/mL injection 300 mg lactated ringers infusion 300 mL * Agents Name O2 Inspired O2 N2O Inspired N2O * Blood No blood administrations on file. Lines, Drains, and Airways Type Details Placement Removal Peripheral IV Orientation: Anterio r, Left; Location: Hand; Gauge: 22 gauge; Insertion Attempts: 1 (freda); Patient Tolerance: tolerated well 08/26/20 1153 by Pia Aviles RN 08/26/20 1241 by Suni Aguillon RN Supraglottic Airway Type: nasal cannula; Confirmation: end tidal CO2, satisfactory chest rise 08/26/20 1159 by Mell Stokes CRNA 08/26/20 1241 by Suni Aguillon RN documented in this encounter Social History Tobacco [...] AM CDT documented as of this encounter OR Notes * Anesthesia Postprocedure Evaluation - Mell Stokes CRNA - 08/26/2020 12:42 PM CDT Phase II Postanesthesia Evaluation Including [facility] Modified Alexa Score Patient seen and evaluated: [facility] Modified Alexa Score: Score: 20 (08/26/20 123) COMMENTS: No apparent Anesthesia related complications RESPIRATORY FUNCTION: Respiration: able to breath and cough freely (08/26/20 123) [2=able to breathe and cough freely, 1=dyspnea, limited breathing or tachypnea, 0=apnea or mechanicventilator] O2 Saturation: able to maintain O2 saturation greater than 92% on room air (08/26/20 123) [2=able to maintain O2 saturation greater than 92% on room air, 1=needs O2 inhalation to maintain O2 saturation greater than 90%, 0=O2 saturation less than 90% even with O2 supplement] Resp: 16 (08/26/20 123)SpO2: 100 % (08/26/201238) CARDIOVASCULAR FUNCTION: BP: 106/74 (08/26/20 123) Circulation: BP within 20% of preanesthetic level (08/26/20 123) [2=BP within 20% of preanesthetic level, 1=BP within 20-49% of preanesthetic level, 0=BP within 50%of preanesthetic level] MENTAL STATUS, NEURO, ACTIVITY: PATIENT PARTICIPATION IN EVALUATIONyes Consciousness: fully awake (08/26/201235) [2=fully awake, 1=arousable on calling, 0=not responding] Activity: able to move 4 extremities voluntarily or on command (08/26/20 123) [2=able to move 4 extremities voluntarily or on command, 1=able to move 2 extremities voluntarily or on command, 0=unable to move extremities voluntarily or on command] Ambulation: able to stand up and walk straight, on ordered bedrest, or performing at patient's prior level of function (08/26/201235) [2=able to stand up and walk straight, on ordered bedrest, or performing at patient's prior level of function, 1=vertigo when erect, 0=dizziness when supine] TEMPERATURE: Temp: 36.7 ??C (08/26/20 1236) PAIN: Pain: pain free (08/26/20 1236) [2=pain free, 1=pain handled by oral medication, 0=pain requiring parenteral medication] NAUSEA AND VOMITING: no nausea and no vomiting Fasting/Feeding: able to drink fluids, ice chips or NPO (08/26/20 1236) [2=able to drink fluids, ice chips or NPO, 1=nauseated, 0=nausea and vomiting] POSTOPERATIVE HYDRATION: well hydrated Intake/Output Summary (Last 24 hours) at 08/26/2020 1242 Last data filed at 08/26/2020 1241 Gross per 24 hour Intake 300 ml Output -- Net 300 ml Urine Output: has voided, adequate urine output per device, or not applicable (08/26/20 1236) [2=has voided, adequate urine output per device, or not applicable, 1=unable to void but comfortable, 0=unable to void and uncomfortable] WOUND: Dressing: dry and clean or not applicable (08/26/20 1236) [2=dry and clean or not applicable, 1=wet, marked and not increasing, 0=growing area of wetness] Mell Stokes CRNA 08/26/2020 12:42 PM Post Anesthesia Evaluation Vitals: Vitals Value Taken Time BP 106/74 08/26/20 1239 Temp 36.7 ??C 08/26/20 1236 Resp 16 08/26/20 1239 SpO2 100 % 08/26/20 1239 Pulse 77 08/26/20 1239 Heart Rate Pain Rating: Anesthesia Post Evaluation Mell Stokes CRNA * Anesthesia Handoff - Mell Stokes CRNA - 08/26/2020 12:41 PM CDT Post-Anesthetic transfer of care report elements to appropriate post-anesthesia recovery environment completed in accordance with procedure. I completed my handoff to the receiving nurse during which we: 1. Identified the patient 2. Identified the responsible provider 3. Reviewed the pertinent medical history 4. Discussed the surgical course 5. Reviewed intra-op anesthesia management and issues during anesthesia 6. Set expectations for post-procedure period 7. Orders as necessary and appropriate for continuation of care are present in Epic. 8. Allowed opportunity for questions and acknowledgement of understanding. Vital Signs: BP: 106/74 (08/26/2020 12:39 PM) Pulse: 77 (08/26/2020 12:39 PM) Temp: 36.7 ??C (08/26/2020 12:36 PM) Resp: 16 (08/26/2020 12:39 PM) SpO2: 100 % (08/26/2020 12:39 PM) 12:41 PM Mell Stokes CRNA * Anesthesia Preprocedure Evaluation - Karla Jones MD - 08/26/2020 11:56 AM CDT Relevant Problems No relevant active problems Anesthesia Evaluation Patient summary reviewed Airway Mallampati: II TM distance: >3 FB Neck ROM: full Dental - normal exam Pulmonary - normal exam breath sounds clear to auscultation (+) asthma, Cardiovascular - normal exam Exercise tolerance: good (+) hypertension, Rhythm: regular Rate: normal Neuro/Psych - negative ROS GI/Hepatic/Renal (+) GERD, bowel prep Endo/Other - negative ROS Abdominal (-) obese Abdomen: soft. Anesthesia History No history of anesthetic complications. Anesthesia Plan ASA Final: 2 MAC Intravenous induction NPO status: >2 hours clears, >8 hours solids. Anesthetic plan and risks discussed with Patient. Plan discussed with Nurse Outboard Technician. Post-op Pain Control Plan to use IV or IM medication for post-op pain control. Smoking Compliance Patient did not smoke on day of surgery documented in this encounter Plan of Treatment Upcoming Encounters Date Type Department Care Team (Late st Contact Info) Description 11/24/2024 9:30 AM CDT Office Visit [facility] Internal Medicine Medical [place] A [facility] [address] [facility] [address] [address] Melani Franklin, DO [address] [facility] [address] [place] [address] documented as of this encounter [...] Bag 08/26/2020 11:53 AM CDT 125 mL/hr lidocaine 2 % (XYLOCAINE) injection IV, INTRA-PROCEDURE PRN, Starting on Tiffany 08/26/20 at 1206, Until Tiffany 08/26/20 at 1242, Routine, Anesthesia Intra-op Given 08/26/2020 12:06 PM CDT 60 mg propofoL (DIPRIVAN) injection IV, INTRA-PROCEDURE PRN, Starting on Tiffany 08/26/20 at 1206, Until Tiffany 08/26/20 at 1242, Anesthesia Intra-op Given 08/26/2020 12:18 PM CDT 50 mg Given 08/26/2020 12:14 PM CDT 50 mg Given 08/26/2020 12:10 PM CDT 50 mg documented in this encounter Care Teams Legal Process Specialist Relationship Specialty Start Date End Date Melani Franklin DO 1 [facility] [address] [place] [address] PCP - General Internal Medicine 01/02/17 documented as of this encounter
--- OUTSIDE RECORDS SUMMARY | 2024-02-21 16:36 | XMS_ITS | Encounter Summary ---
Author Organization [facility] Address [address] [place] [address] Care Team Providers Care Nougat Cutter Machine Name Role Phone Melani Franklin DO Primary Care Provider [phone] Reason for Visit * Reason Comments Medication Refill Encounter Details Date Type Department Care Team (Late Contact Info) Description 03/19/2020 Refill [facility] Internal Medicine [facility] [address] [facility] [address] [place] [address] Melani Franklin, DO [address] [place] [address] Mild episode of recurrent major depressive [...] Visit [facility] Internal Medicine [facility] [address] [facility] [address] [place] [address] Melani Franklin, DO [address] [address] documented as of this encounter Visit Diagnoses Diagnosis Mild episode of recurrent major depressive disorder documented in this encounter Care Teams Nougat Cutter Machine Relationship Specialty Start Date End Date Melani Franklin DO [address] [place] [address] PCP - General Internal Medicine 01/02/17 documented as of this encounter
--- OUTSIDE RECORDS SUMMARY | 2024-02-21 16:36 | XMS_ITS | Encounter Summary ---
Author Organization [facility] Address [address] [place] [address] Care Team Providers Care Concrete Paving Supervisor Name Role Phone Melani Franklin DO Primary Care Provider [phone] Reason for Visit * Reason Comments Medication Refill Encounter Details Date Type Department Care Team (Late Contact Info) Description 01/08/2020 Refill [facility] Internal Medicine Medical [facility] [address] [facility] [address] [place] [address] Melani Franklin, [address] [address] Insomnia, unspecified type Social History [...] encounter Miscellaneous Notes * Telephone Encounter - araceli chino - 01/09/2020 3:41 PM CST Last refilled: 07/10/2019 Quantity given: 30 Number of refills: 5 Last appointment: 01/08/2018 Next appointment: 03/10/2020 MEL CUTTER HAND documented in this encounter Plan of Treatment Upcoming Encounters Date Type Department Care Team (Late st Contact Info) Description 11/24/2024 9:30 AM CDT Office Visit [facility] Internal Medicine Medical [place] A [facility] [address] [facility] [address] [address] Melani Franklin DO [address] [facility] [address] [place] [address] documented as of this encounter Visit Diagnoses Diagnosis Insomnia, unspecified type documented in this encounter Care Teams Concrete Paving Supervisor Relationship Specialty Start Date End Date Melani Franklin DO [address] [facility] [address] [place] [address] PCP - General Internal Medicine 01/02/17 documented as of this encounter
--- OUTSIDE RECORDS SUMMARY | 2024-02-21 16:36 | XMS_ITS | Encounter Summary ---
Author Organization [facility] Address [address] [place] [address] Care Team Providers Care Salesperson Jewelry Name Role Phone Melani Franklin DO Primary Care Provider [phone] Reason for Visit * Reason Comments Medication Refill Encounter Details Date Type Department Care Team (Late Contact Info) Description 06/03/2020 Refill [facility] Internal Medicine [facility] [address] [facility] [address] [place] [address] Melani Franklin, DO [address] [place] [address] Social History Tobacco Use Types Packs/Day [...] Office Visit [facility] Internal Medicine [facility] [address] [facility] [address] [place] [address] Melani Franklin, DO [address] [address] documented as of this encounter Visit Diagnoses Not on filedocumented in this encounter Care Teams Salesperson Jewelry Relationship Specialty Start Date End Date Melani Franklin DO [address] [address] PCP - General Internal Medicine 01/02/17 documented as of this encounter
--- OUTSIDE RECORDS SUMMARY | 2024-02-21 16:36 | XMS_ITS | Encounter Summary ---
Author Organization Address [address] [place] [address] Care Team Providers Care Rn Family Practice Name Role Phone Melani Franklin DO Primary Care Provider [phone] Reason for Visit * Reason Comments Medication Refill Encounter Details Date Type Department Care Team (Late st Contact Info) Description 02/06/2020 Refill [facility] Internal Medicine Medical [facility] [address] [facility] [address] [place] [address] Melani Franklin, [address] [address] Insomnia, unspecified type Social History [...] * Telephone Encounter - araceli chino - 02/09/2020 11:34 AM CST Last refilled: 01/09/2020 Quantity given: 30 Number of refills: 0 Last appointment: 01/07/2019 Next appointment: 03/10/2020 ITY SPECIALIST documented in this encounter Plan of Treatment Upcoming Encounters Date Type Department Care Team (Late st Contact Info) Description 11/24/2024 9:30 AM CDT Office Visit [facility] Internal Medicine Medical [place] [facility] [address] [facility] [address] [address] Melani Franklin DO [address] [facility] [address] [place] [address] documented as of this encounter Visit Diagnoses Diagnosis Insomnia, unspecified type documented in this encounter Care Teams Rn Family Practice Relationship Specialty Start Date End Date Melani Franklin DO [address] [facility] [address] [place] [address] PCP - General Internal Medicine 01/02/17 documented as of this encounter
--- OUTSIDE RECORDS SUMMARY | 2024-02-21 16:36 | XMS_ITS | Encounter Summary ---
Author Organization [facility] Address [address] [place] [address] Care Team Providers Care Kohinoor Operator Name Role Phone Melani Franklin DO Primary Care Provider [phone] Reason for Visit * Reason Comments Medication Refill Encounter Details Date Type Department Care Team (Late st Contact Info) Description 03/25/2020 Refill [facility] Internal Medicine Medical [facility] [address] [facility] [address] [place] [address] Melani Franklin, [address] [address] Insomnia, unspecified type Social History [...] * Telephone Encounter - araceli chino - 03/26/2020 9:36 AM CST Last refilled: 02/10/2020 Quantity given: 30 Number of refills: 0 Last appointment: 01/07/2019 Next appointment: 06/24/2020 ERY ATTENDANT documented in this encounter Plan of Treatment Upcoming Encounters Date Type Department Care Team (Late st Contact Info) Description 11/24/2024 9:30 AM CDT Office Visit [facility] Internal Medicine Medical [place] A [facility] [address] [facility] [address] [address] Melani Franklin DO [address] [facility] [address] [place] [address] documented as of this encounter Visit Diagnoses Diagnosis Insomnia, unspecified type documented in this encounter Care Teams Kohinoor Operator Relationship Specialty Start Date End Date Melani Franklin DO [address] [facility] [address] [place] [address] PCP - General Internal Medicine 01/02/17 documented as of this encounter
--- OUTSIDE RECORDS SUMMARY | 2024-02-21 16:36 | XMS_ITS | Encounter Summary ---
Author Organization [facility] Address [address] [place] [address] Care Team Providers Care Hat Body Inspector Name Role Phone Melani Franklin DO Primary Care Provider [phone] Reason for Visit * Reason Comments Medication Refill Encounter Details Date Type Department Care Team (Late st Contact Info) Description 08/26/[address] [facility] Internal Medicine Medical [facility] [address] [facility] [address] [place] [address] Melani Franklin, DO [address] [address] Migraine with aura and without status migrainosus, not intractable; Insomnia, unspecified type Social History Tobacco Use [...] Coronavirus/COVID-19? No / Unsure 04/11/2022 9:01 AM THREAD TOOL GRINDER SET UP OPERATOR documented as of this encounter Miscellaneous Notes * Telephone Encounter - Melani Franklin, - 08/27/2019 10:13 PM CDT Please confirm med, not on current med list. documented in this encounter Plan of Treatment Upcoming Encounters Date Type Department Care Team (Late st Contact Info) Description 11/24/2024 9:30 AM CDT Office Visit [facility] Internal Medicine Medical [place] [facility] [address] [facility] [address] [address] Melani Franklin DO [address] [facility] [address] [place] [address] documented as of this encounter Visit Diagnoses Diagnosis Migraine with aura and without status migrainosus, not intractable Migraine with aura, without mention of intractable migraine without mention of status migrainosus Insomnia, unspecified type documented in this encounter Care Teams Hat Body Inspector Relationship Specialty Start Date End Date Melani Franklin DO [address] [facility] [address] [place], [place] [address] PCP - General Internal Medicine 01/02/17 documented as of this encounter
--- OUTSIDE RECORDS SUMMARY | 2024-02-21 16:36 | XMS_ITS | Encounter Summary ---
Author Organization [facility] Address [address] [place] [address] Care Team Providers Care Primary School Teacher Name Role Phone Melani Franklin DO Primary Care Provider [phone] Reason for Visit * Reason Comments Medication Refill Encounter Details Date Type Department Care Team (Late Contact Info) Description 10/19/2019 Refill [facility] Internal Medicine [facility] [address] [facility] [address] [place] [address] Melani Franklin, DO [address] [place] [address] Social History Tobacco Use Types Packs/Day [...] Visit [facility] Internal Medicine [facility] [address] [facility] [address] [place] [address] Melani Franklin DO [address] [address] documented as of this encounter Visit Diagnoses Not on filedocumented in this encounter Care Teams Primary School Teacher Relationship Specialty Start Date End Date Melani Franklin DO [address] [place] [address] PCP - General Internal Medicine 01/02/17 documented as of this encounter
--- OUTSIDE RECORDS SUMMARY | 2024-02-21 16:36 | XMS_ITS | Encounter Summary ---
Author Organization [facility] Address [address] [place] [address] Care Team Providers Care Rn Geriatric Name Role Phone Melani Franklin DO Primary Care Provider [phone] Encounter Details Date Type Department Care Team (Latest Contact Info) Description 11/24/2019 1:10 PM CDT - 11/24/2019 11:59 PM CDT Hospital Encounter [facility] Medical [place] A [address] [place] [address] [facility], External Provider [address] [place] [address] Discharge Disposition: Home or Self Care Social [...] daily. RESVERATROL ORAL Take by mouth daily. lisinopril-hydroCHLORO thiazide (ZESTORETIC) 10-12.5 mg tablet TAKE 1 TABLET BY MOUTH DAILY 90 Tablet 3 10/20/2019 12/07/2020 escitalopram oxalate (LEXAPRO) 20 mg tabletIndications:Mild episode of recurrent major depressive disorder Take 1 Tablet (20 mg) by mouth daily. 90 Tablet 1 10/01/2019 03/19/2020 zolpidem (AMBIEN) 5 mg tabletIndications:Inso mnia, unspecified type TAKE 1 TABLET BY MOUTH NIGHTLY NEEDED FOR INSOMNIA 30 Tablet 5 07/10/2019 01/09/2020 valACYclovir (VALTREX) 1 gram tabletIndications:Cold sore TAKE 2 TABLETS BY MOUTH TWICE DAILY 4 Tablet 3 06/19/2019 02/21/2021 SUMAtriptan (IMITREX) 100 mg tablet TAKE 1 TABLET BY MOUTH AT ONSET OF MIGRAINE. MAY REPEAT AFTER 2 HOURS IF HEADACHE RETURNS. NOT TO EXCEED 2 TABLETS IN 24 HOURS 27 Tablet 3 03/04/2019 03/26/2020 cholestyramine, with sugar, (QUESTRAN) 4 gram Powder in Packet MIX ONE PACKETE IN LIQUID AND DRINK BY MOUTH DAILY 60 Packet 5 02/20/2019 06/03/2020 naproxen (NAPROSYN) 500 mg tablet TAKE 1 TABLET BY MOUTH TWICE DAILY 180 Tablet 11/27/2018 06/16/2020 clobetasol (TEMOVATE) 0.05 % Solution APPLY TO THE AFFECTED AREA TWICE DAILY NEEDED FOR DERMATITIS 50 mL 02/15/2018 06/14/2020 documented as of this encounter Plan of Treatment Upcoming Encounters Date Type Department Care Team (Late st Contact Info) Description 11/24/2024 9:30 AM CDT Office Visit [facility] Internal Medicine Medical [place] A [facility] [address] [facility] [address] [place] [address] Melani Franklin, DO [address] [facility] [address] [place] [address] documented as of this encounter Procedures Procedure Name Priority Date/Time Associated Diagnosis Comments MAMMO PRIOR STUDY Routine 11/24/2019 1:1 0 PM CDT Follow-up exam documented in this encounter Results * MAMMO PRIOR STUDY (11/24/2019 1:10 PM CDT) Narrative 04/18/2022 1:09 PM INSURANCE UNDERWRITER This exam was auto finalized to allow images to be scanned to PACS. External Provider [facility] DIAGNOSTIC IMAGI NG ORDERABLES documented in this encounter Visit Diagnoses Diagnosis Follow-up exam Unspecified follow-up examination documented in this encounter Care Teams Rn Geriatric Relationship Specialty Start Date End Date Melani Franklin DO [address] [address] PCP - General Internal Medicine 01/02/17 documented as of this encounter
--- OUTSIDE RECORDS SUMMARY | 2024-02-21 16:36 | XMS_ITS | Encounter Summary ---
Author Organization [facility] Address [address] [place] [address] Care Team Providers Care Senior Trial Attorney Name Role Phone Melani Franklin DO Primary Care Provider [phone] Reason for Visit * Reason Comments Medication Refill Encounter Details Date Type Department Care Team (Late Contact Info) Description 06/19/2019 Refill [facility] Internal Medicine [facility] [address] [facility] [address] [place] [address] Melani Franklin, DO [address] [address] Cold sore Social History Tobacco [...] Description 11/24/2024 9:30 AM CDT Office Visit [facility] Internal Medicine [facility] [address] [facility] [address] [place] [address] Melani Franklin, DO [address] [facility] [address] [facility] [place] [address] documented as of this encounter Visit Diagnoses Diagnosis Cold sore Herpes 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
--- OUTSIDE RECORDS SUMMARY | 2024-02-21 16:36 | XMS_ITS | Encounter Summary ---
Author Organization [facility] Address [address] [place] [address] Care Team Providers Care Adult Manager Name Role Phone Melani Franklin DO Primary Care Provider [phone] Encounter Details Date Type Department Care Team (Late Contact Info) Description 11/25/2019 Orders Only [facility] Internal Medicine [facility] [address] [facility] [address] [place] [address] Other, Stl NO ADDRESS ON [...] Office Visit [facility] Internal Medicine [facility] [address] [facility] [address] [place] [address] Melani Franklin, [address] [facility] [address] [place] [address] documented as of this encounter Procedures Procedure Name Priority Date/Time Associated Diagnosis Comments MAMMO SCREEN BILAT W OR WO CAD Routine 11/24/2019 documented in this encounter Results * MAMMO SCREEN BILAT W OR WO CAD (11/24/2019) Anatomical Region Laterality Modality Breast Bilateral Other Stl Other MAMMO ORDERABLES documented in this encounter Visit Diagnoses Not on filedocumented in this encounter Care Teams Adult Manager Relationship Specialty Start Date End Date Melani Franklin DO [address] [facility] [address] [place] [address] PCP - General Internal Medicine 01/02/17 documented as of this encounter
--- OUTSIDE RECORDS SUMMARY | 2024-02-21 16:36 | XMS_ITS | Encounter Summary ---
Author Organization [facility] Address [address] [place] [address] Care Team Providers Care Certified Neurodiagnostic Technologist Name Role Phone Melani Franklin DO Primary Care Provider [phone] Reason for Visit * Reason Comments Medication Refill Encounter Details Date Type Department Care Team (Late Contact Info) Description 07/10/2019 Refill [facility] Internal Medicine Medical [facility] [address] [facility] [address] [place] [address] Melani Franklin DO [address] [address] Insomnia, unspecified type Social History [...] encounter Miscellaneous Notes * Telephone Encounter - Katie Baez - 07/10/2019 1:47 PM CDT Date of last refill 01/07/19 Quantity given 30 Number of Refills 0 Last Appt 01/07/19 Next Appt none documented in this encounter Plan of Treatment Upcoming Encounters Date Type Department Care Team (Late st Contact Info) Description 11/24/2024 9:30 AM CDT Office Visit [facility] Internal Medicine Medical [place] A [facility] [address] [facility] [address] [address] Melani Franklin DO [address] [facility] [address] [place] [address] documented as of this encounter Visit Diagnoses Diagnosis Insomnia, unspecified type documented in this encounter Care Teams Certified Neurodiagnostic Technologist Relationship Specialty Start Date End Date Melani Franklin DO [address] [facility] [address] [place], [place] [id number] PCP - General Internal Medicine 01/02/17 documented as of this encounter
--- OUTSIDE RECORDS SUMMARY | 2024-02-21 16:36 | XMS_ITS | Encounter Summary ---
Author Organization [facility] Address [address] [place] [address] Care Team Providers Care Bilingual Counter Sales Retail Name Role Phone Melani Franklin DO Primary Care Provider [phone] Reason for Visit * Reason Onset Date Comments Anxiety 10/01/2019 Depression 10/01/2019 Encounter Details Date Type Department Care Team (Late st Contact Info) Description 10/01/2019 Telephone [facility] Internal Medicine Medical [facility] [address] [facility] [address] [address] Melani Franklin, DO [address] [facility] [address] [place] [address] Anxiety; Depression Social History Tobacco Use Types Packs/Day Years [...] encounter Miscellaneous Notes * Telephone Encounter - Shonna Ray - 10/01/2019 2:03 PM CDT Patient notified. * Telephone Encounter - Melani Franklin DO - 10/01/2019 12:47 PM CDT Sorry to hear about the foot issues. Totally fine to increase lexapro, new rx sent for 20mg tab. * Telephone Encounter - Liliana Bazan RN - 10/01/2019 9:15 AM CDT Pt calling stating that she was started on lexapro 10 mg daily for depression and anxiety, she states that about a month and a half ago she torn some ligaments in her foot which has really caused herdepression to be worse because she can not get around really well yet, she states that her is an orthopedic surgeon and he is the one who is taking care of the foot, she is doing advil and PT, but she thinks that the lexapro needs to be increased to help with her mood and anxiety. Denies any SI/HI. documented in this encounter Plan of Treatment Upcoming Encounters Date Type Department Care Team (Late st Contact Info) Description 11/24/2024 9:30 AM CDT Office Visit [facility] Internal Medicine Medical [place] A [facility] [address] [address] Melani Franklin DO [address] [facility] [address] [place], [place] [address] documented as of this encounter Visit Diagnoses Diagnosis Mild episode of recurrent major depressive disorder documented in this encounter Care Teams Bilingual Counter Sales Retail Relationship Specialty Start Date End Date Melani Franklin DO [address] [place] [address] PCP - General Internal Medicine 01/02/17 documented as of this encounter
--- OUTSIDE RECORDS SUMMARY | 2024-02-21 16:37 | XMS_ITS | Encounter Summary ---
[facility] Address [address] [place] [address] Care Team Providers Care Alarm Signal Operator Name Role Phone Melani Franklin DO Primary Care Provider [phone] Reason for Visit * Auth/Cert Specialty Diagnoses / Procedures Referred By Tyrone baxter Referred To Contact Laboratory [facility] [address] [address] Referral ID Status Reason Start Date Expiration Date Visits Re quested Visits Authorized [id number] 1 1 Encounter Details Date Type Department Care Team (Latest Contact Info) Description 01/16/2017 8:30 AM CABBAGE SALTER - 01/16/2017 11:59 PM [facility] Encounter [facility] Laboratory Services Medical [address] [address] Melani Franklin DO [address] [facility] [address] [place] [address] Discharge Disposition: Home or Self [...] Sig Dispensed Refills Start Date End Date SUMAtriptan (IMITREX) 100 mg tablet TAKE 1 TABLET BY MOUTH AT ONSET OF MIGRAINE. JULY REPEAT AFTER 2 HOURS IF HEADACHE RETURNS. NOT TO EXCEED 2 TABLETS IN 24 HOURS 9 Tablet 3 01/03/2017 03/01/2017 lisinopril-hydroCHLOROt hiazide (ZESTORETIC) 10-12.5 mg tablet Take 1 Tablet by mouth daily. 2 12/21/2016 03/26/2017 cholestyramine, with sugar, (QUESTRAN) 4 gram Powder in Packet Take 1 Packet by mouth 1 time daily as needed. 2 12/21/2016 03/19/2017 hyoscyamine 0.125 mg Tablet, Sublingual Take 1 Tablet by mouth 1 time daily as needed. 0 09/25/2016 12/04/2017 amitriptyline (ELAVIL) 10 mg tabletIndications:Migra ine with aura and without status migrainosus, not intractable,Insomnia, unspecified type Take 1-3 Tablets (10-30 mg) by mouth daily at bedtime. 90 Tablet 01/02/2017 03/01/2017 clobetasol (TEMOVATE) 0.05 % Solution Apply to affected area 2 times daily as needed for Other (See Comment) (dermatitis). 50 mL 01/02/2017 02/15/2018 documented as of this encounter Plan of Treatment Upcoming Encounters Date Type Department Care Team (Late st Contact Info) Description 11/24/2024 9:30 AM CDT Office Visit [facility] Internal Medicine Medical [place] A [facility] [address] [facility] [address] [place] [address] Melani Franklin, DO [address] [facility] [address] [place] [address] documented as of this encounter Procedures Procedure Name Priority Date/Time Associated Diagnosis Comments TSH REFLEXIVE Routine 01/16/2017 8:39 AM CABBAGE SALTER Routine general medical examination at a health care facility CBC WITH DIFFERENTIAL Routine 01/16/2017 8:39 AM CABBAGE SALTER Routine general medical examination at a [facility] care facility LIPID PANEL Routine 01/16/2017 8:39 AM CABBAGE SALTER Routine general medical examination at a health care facility COMPREHENSIVE METABOLIC PANEL Routine 01/16/2017 8:39 AM CABBAGE SALTER Routine general medical examination at a health care facility documented in this encounter Results * TSH REFLEXIVE (01/16/2017 8:39 AM CABBAGE SALTER) TSH 2.10 0.27 - 4.20 uIU/mL 01/16/2017 9:54 AM [facility] [employer] [facility] Blood Venipuncture / Unknown 01/16/2017 8:39 AM CABBAGE SALTER 01/16/2017 8:58 AM CABBAGE SALTER Melani Franklin DO CHEMISTRY ORDERABLES [facility] [employer] [facility]# [id number] [address] [place] [address] * (ABNORMAL) LIPID PANEL (01/16/2017 8:39 AM CABBAGE SALTER) Pathologist [facility] CHOLESTEROL 192 <200 mg/dL 01/16/2017 9:34 AM [facility] [employer] [facility] TRIGLYCERIDE 180(H) <150 mg/dL 01/16/2017 9:34 AM [facility] HDL 45 40 - 59 mg/dL 01/16/2017 9:34 AM [facility] [employer] [facility] LDL CALCULATED 111(H) <100 mg/dL 01/16/2017 9:34 AM [facility] [employer] [facility] NON-HDL CHOLESTEROL 147(H) <130 mg/dL 01/16/2017 9:34 AM [facility] [employer] [facility] Blood Venipuncture / Unknown 01/16/2017 8:39 AM CABBAGE SALTER 01/16/2017 8:58 AM CABBAGE SALTER Narrative [facility] [employer] [facility] - 01/16/2017 9:34 AM CABBAGE SALTER TOTAL CHOLESTEROL ??mg/dL ??Desirable <200 ??Borderline high 200-239 ??High >=240 TRIGLYCERIDES ??mg/dL ??Normal <150 ??Borderline high 150-199 ??High 200-499 ??Very high >=500 HDL CHOLESTEROL ??mg/dL ??Low <40 ??Normal 40-59 ??Desirable >=60 NON HDL CHOLESTEROL mg/dL ??Optimal <130 ??Near Optimal 130-159 ??Borderline High 160-189 ??Very High >=190 Calculated LDL mg/dL ??Optimal <100 ??Near Optimal 100-129 ??Borderline High 130-159 ??High 160-189 ??Very High >=190 ATPIII Guidelines Reference Ranges for Lipid Panels (NCEP/AMA) Melani Franklin DO CHEMISTRY ORDERABLES [employer] [facility]OR[facility] CLIA# [id number] [address] [facility] [place] [id number] * (ABNORMAL) CBC WITH DIFFERENTIAL (01/16/2017 8:39 AM CABBAGE SALTER) Pathologist [facility] WBC 5.4 4.0 - 9.8 K/uL 01/16/2017 9:31 AM CABBAGE SALTER [employer] [facility] - [facility] RBC 3.96 3.90 - 4.90 M/uL 01/16/2017 9:31 AM [facility] [employer] [facility] HEMOGLOBIN 12.9 11.8 - 14.8 g/dL 01/16/2017 9:31 AM [facility] [employer] [facility] HEMATOCRIT 38.1 35.5 - 44.0 % 01/16/2017 9:31 AM [facility] [employer] [facility] - [facility] MCV 96.2 82.0 - 99.0 fL 01/16/2017 9:31 AM [facility] [employer] [facility] MCH 32.6 27.2 - 32.6 pg 01/16/2017 9:31 AM [facility] [employer] [facility] - [facility] MCHC 33.9 31.5 - 35.5 g/dL 01/16/2017 9:31 AM [facility] [employer] - [facility] RDW 12.6 11.5 - 14.5 % 01/16/2017 9:31 AM [facility] [employer] [facility] RDW-STDEV 44.7 37.1 - 48.7 fL 01/16/2017 9:31 AM CABBAGE SALTER [employer] [facility] PLATELETS 198 140 - 350 K/uL 01/16/2017 9:31 AM [facility] MPV 13.1(H) 9.3 - 12.4 fL 01/16/2017 9:31 AM [facility] [employer] [facility] - [facility] NEUTROPHILS 57 % 01/16/2017 9:31 AM [facility] [employer] [facility] - [facility] LYMPHOCYTES 34 % 01/16/2017 9:31 AM [facility] [employer] [facility] - [facility] MONOCYTES 6 % 01/16/2017 9:31 AM [facility] - [facility] EOSINOPHILS 2 % 01/16/2017 9:31 AM [facility] - [facility] BASOPHILS 0 % 01/16/2017 9:31 AM [facility] [employer] [facility] - [facility] IMMATURE GRANULOCYTES 0 % 01/16/2017 9:31 AM [facility] [employer] [facility] - [facility] NEUTROPHIL ABSOLUTE 3.08 1.90 - 7.00 K/uL 01/16/2017 9:31 AM [facility] [employer] SERVICES - [facility] LYMPHOCYTE ABSOLUTE 1.85 0.70 - 4.50 K/uL 01/16/2017 9:31 AM [facility] SERVICES - [facility] MONOCYTE ABSOLUTE 0.34 0.10 - 1.30 K/uL 01/16/2017 9:31 AM [facility] [employer] [facility] - [facility] EOSINOPHIL ABSOLUTE 0.08 0.00 - 0.70 K/uL 01/16/2017 9:31 AM [facility] [employer] [facility] - [facility] BASOPHILS ABSOLUTE 0.02 0.00 - 0.20 K/uL 01/16/2017 9:31 AM [facility] [employer] [facility]ORATORY [facility] IMMATURE GRANULOCYTES ABSOLUTE 0.01 0.00 - 0.03 K/uL 01/16/2017 9:31 AM [facility] [employer] [facility] Blood Venipuncture / Unknown 01/16/2017 8:39 AM CABBAGE SALTER 01/16/2017 8:58 AM CABBAGE SALTER Melani Franklin DO HEMATOLOGY ORDERABLE S [facility] LABORATORY SERVICES [facility] CLIA# [id number] [address] [facility] [place] [address] * COMPREHENSIVE METABOLIC PANEL (01/16/2017 8:39 AM CABBAGE SALTER) SODIUM 136 136 - 145 mmol/L 01/16/2017 9:34 AM [employer] [facility] - [facility] POTASSIUM 3.9 3.5 - 5.0 mmol/L 01/16/2017 9:34 AM [employer] [facility] CHLORIDE 99 98 - 107 mmol/L 01/16/2017 9:34 AM [employer] [facility] CO2 27 22 - 29 mmol/L 01/16/2017 9:34 AM [employer] [facility] CALCIUM 8.9 8.6 - 10.2 mg/dL 01/16/2017 9:34 AM [employer] [facility] BUN 16 6 - 20 mg/dL 01/16/2017 9:34 AM [employer] [facility] CREATININE 0.70 0.51 - 0.95 mg/dL 01/16/2017 9:34 AM [employer] [facility] GLUCOSE 94 74 - 99 mg/dL 01/16/2017 9:34 AM [employer] [facility] TOTAL PROTEIN 7.0 6.7 - 8.6 g/dL 01/16/2017 9:34 AM [employer] [facility] ALBUMIN 4.4 3.5 - 5.2 g/dL 01/16/2017 9:34 AM [employer] [facility] BILIRUBIN TOTAL 0.7 0.3 - 1.2 mg/dL 01/16/2017 9:34 AM [employer] [facility] ALKALINE PHOSPHATASE 46 35 - 104 U/L 01/16/2017 9:34 AM [employer] [facility] AST 27 <33 U/L 01/16/2017 9:34 AM [employer] [facility] ALT 29 <34 U/L 01/16/2017 9:34 AM [employer] [facility] GFR >60 >=60 mL/min/1.7 3 sq meter 01/16/2017 9:34 AM [employer] [facility] Comment: eGFR has not been validated for [...] refer to the GFR result. GFR, >60 >=60 mL/min/1.7 3 sq meter 01/16/2017 9:34 AM [facility] LABORATORY [facility] ANION GAP 10 8 - 16 mmol/L 01/16/2017 9:34 AM [facility]ORY [facility] Blood Venipuncture / Unknown 01/16/2017 8:39 AM CABBAGE SALTER 01/16/2017 8:58 AM CABBAGE SALTER Narrative [employer] [facility]ORATORY [facility] - 01/16/2017 9:34 AM CABBAGE SALTER Samples containing indocyanine green cause interferences on Total and/or Direct Bilirubin and must not be measured. Melani Franklin DO CHEMISTRY ORDERABLES [facility]ATORY SERVICES [facility] [id number] 5 [place] [address] documented in this encounter Visit Diagnoses Diagnosis Routine general medical examination at a health care facility documented in this encounter Care Teams Alarm Signal Operator Relationship Specialty Start Date End Date Melani Franklin DO [address] [facility] [address] [place] [address] PCP - General Internal Medicine 01/02/17 documented as of this encounter
--- OUTSIDE RECORDS SUMMARY | 2024-02-21 16:37 | XMS_ITS | Encounter Summary ---
Author Organization [facility] Address [address] [place] [address] Care Team Providers Care Coding And Reimbursement Specialist Name Role Phone Melani Franklin DO Primary Care Provider [phone] Reason for Visit * Reason Onset Date Comments Medication Refill 02/20/2019 Encounter Details Date Type Department Care Team (Late st Contact Info) Description 02/20/2019 Refill [facility] Internal Medicine Medical [facility] [address] [facility] [address] [address] Melani Franklin DO [address] [facility] [address] [place] [address] Social History Tobacco Use Types [...] encounter Miscellaneous Notes * Telephone Encounter - Alix Finn - 02/20/2019 9:30 AM CST Pending FY She wanted to let you know that the Lexapro is working well for her, she has very little nausea PASTER documented in this encounter Plan of Treatment Upcoming Encounters Date Type Department Care Team (Late st Contact Info) Description 11/24/2024 9:30 AM CDT Office Visit [facility] Internal Medicine Medical [place] [facility] [address] [facility] [address] [address] Melani Franklin DO [address] [facility] [address] [place] [address] documented as of this encounter Visit Diagnoses Not on filedocumented in this encounter Care Teams Coding And Reimbursement Specialist Relationship Specialty Start Date End Date Melani Franklin DO [address] [facility] [address] [place], [place] [address] PCP - General Internal Medicine 01/02/17 documented as of this encounter
--- OUTSIDE RECORDS SUMMARY | 2024-02-21 16:37 | XMS_ITS | Encounter Summary ---
Author Organization [facility] Address [address] [place] [address] Care Team Providers Care Thermoplastic Technician Name Role Phone Melani Franklin DO Primary Care Provider Reason for Visit * Reason Comments Medication Refill Encounter Details Date Type Department Care Team (Late Contact Info) Description 08/22/[address] [facility] Internal Medicine [facility] [address] [facility] [address] [place] [address] Melani Franklin, DO [address] [place] [address] Social History Tobacco Use Types Packs/Day [...] 11/24/2024 9:30 AM CDT Office Visit [facility] Internal Medicine [facility] [address] [facility] [address] [place] [address] Melani Franklin DO [address] [place] [address] [address] documented as of this encounter Visit Diagnoses Not on filedocumented in this encounter Care Teams Thermoplastic Technician Relationship Specialty Start Date End Date Melani Franklin DO [address] [place] [address] PCP - General Internal Medicine 01/02/17 documented as of this encounter
--- OUTSIDE RECORDS SUMMARY | 2024-02-21 16:37 | XMS_ITS | Encounter Summary ---
Author Organization [facility] Address [address] [place] [address] Care Team Providers Care Solar Sales Name Role Phone Melani Franklin DO Primary Care Provider [phone] Encounter Details Date Type Department Care Team ([facility] Contact Info) Description 01/16/2017 Orders Only [facility] Internal Medicine [facility] [address] [facility] [address] [place] [address] Melani Franklin, DO [address] [facility] [address] [place] [address] Social History Tobacco Use Types Packs/Day [...] - [facility] Internal Medicine [facility] [address] [facility] [address] [place] [address] Melani Franklin, DO [address] [facility] [address] [place] [address] documented as of this encounter Visit Diagnoses Not on filedocumented in this encounter Care Teams Solar Sales Relationship Specialty Start Date End Date Melani Franklin DO [address] [facility] [address] [place] [address] PCP - General Internal Medicine 01/02/17 documented as of this encounter
--- OUTSIDE RECORDS SUMMARY | 2024-02-21 16:37 | XMS_ITS | Encounter Summary ---
Author Organization [facility] Address [address] [place] [address] Care Team Providers Care Cloth Seconds Sorter Name Role Phone Melani Franklin DO Primary Care Provider [phone] Reason for Visit * Reason Comments Medication Refill Encounter Details Date Type Department Care Team (Late Contact Info) Description 09/11/2017 Refill [facility] Internal Medicine [facility] [address] [facility] [address] [place] [address] Melani Franklin, DO [address] [place] [address] Social History Tobacco Use Types Packs/Day [...] Office Visit [facility] Internal Medicine [facility] [address] [facility] [address] [place] [address] Melani Franklin DO [address] [address] documented as of this encounter Visit Diagnoses Not on filedocumented in this encounter Care Teams Cloth Seconds Sorter Relationship Specialty Start Date End Date Melani Franklin DO [address] [place] [address] PCP - General Internal Medicine 01/02/17 documented as of this encounter
--- OUTSIDE RECORDS SUMMARY | 2024-02-21 16:37 | XMS_ITS | Encounter Summary ---
Author Organization [facility] Address [address] [place] [address] Care Team Providers Care Crnp Name Role Phone Melani Franklin DO Primary Care Provider [phone] Encounter Details Date Type Department Care Team (Latest Contact Info) Description 08/06/2018 1:10 PM CDT - 08/06/2018 11:59 PM CDT Hospital Encounter [facility] Medical [place] A [address] [place] [address] [facility], External Provider [address] [place] [address] Discharge Disposition: Home or Self Care Social [...] Sig Dispensed Refills Start Date End Date lisinopril-hydroCHLORO thiazide (ZESTORETIC) 10-12.5 mg tablet TAKE 1 TABLET BY MOUTH DAILY 90 Tablet 2 07/02/2018 04/03/2019 SUMAtriptan (IMITREX) 100 mg tablet TAKE 1 TABLET BY MOUTH AT ONSET OF MIGRAINE. MAY REPEAT AFTER 2 HOURS IF HEADACHE RETURNS. NOT TO EXCEED 2 TABLETS IN 24 HOURS. 27 Tablet 3 02/21/2018 03/04/2019 clobetasol (TEMOVATE) 0.05 % Solution APPLY TO THE AFFECTED AREA TWICE DAILY NEEDED FOR DERMATITIS 50 mL 02/15/2018 06/14/2020 zolpidem (AMBIEN) 5 mg tabletIndications:Inso mnia, unspecified type Take 1 Tablet (5 mg) by mouth nightly as needed for Insomnia. 30 Tablet 01/08/2018 01/07/2019 cholestyramine, with sugar, (QUESTRAN) 4 gram Powder in Packet MIX AND DRINK 1 PACKET BY MOUTH DAILY 90 Package 3 10/11/2017 11/24/2018 naproxen (NAPROSYN) 500 mg tablet TAKE 1 TABLET BY MOUTH TWICE DAILY 180 Tablet 09/11/2017 11/24/2018 documented as of this encounter Plan of Treatment Upcoming Encounters Date Type Department Care Team (Late st Contact Info) Description 11/24/2024 9:30 AM CDT Office Visit [facility] Internal Medicine Medical [place] A [facility] [address] [facility] [address] [address] Melani Franklin DO [address] [facility] [address] [place] [address] documented as of this encounter Procedures Procedure Name Priority Date/Time Associated Diagnosis Comments MAMMO PRIOR STUDY Routine 08/06/2018 1:1 0 PM CDT Follow-up exam documented in this encounter Results * MAMMO PRIOR STUDY (08/06/2018 1:10 PM CDT) Narrative 04/18/2022 1:09 PM FOOD AND BEVERAGE ASSOCIATE This exam was auto finalized to allow images to be scanned to PACS. External Provider [facility] DIAGNOSTIC IMAGI NG ORDERABLES documented in this encounter Visit Diagnoses Diagnosis Follow-up exam Unspecified follow-up examination documented in this encounter Care Teams Crnp Relationship Specialty Start Date End Date Melani Franklin DO [address] [facility] [address] [place], [place] [id number] PCP - General Internal Medicine 01/02/17 documented as of this encounter
--- OUTSIDE RECORDS SUMMARY | 2024-02-21 16:37 | XMS_ITS | Encounter Summary ---
Author Organization [facility] Address [address] [place] [address] Care Team Providers Care Machine Feeder Floorperson Name Role Phone Melani Franklin DO Primary Care Provider [phone] Reason for Visit * Auth/Cert Specialty Diagnoses / Procedures Referred By Tyrone baxter Referred To Contact Laboratory [facility] [address], [place] [address] Referral ID Status Reason Start Date Expiration Date Visits Re quested Visits Authorized [id number] 1 1 Encounter Details Date Type Department Care Team (Latest Contact Info) Description 01/22/2018 8:30 AM MEDIA EXECUTIVE - 01/22/2018 11:59 PM [facility] Hospital Encounter [facility] Laboratory Services Medical [address] [address] Melani Franklin DO [address] [place] [address] [address] [place] [address] Discharge Disposition: Home or Self [...] 5 mg tabletIndications:Insom adis, unspecified type Take 1 Tablet (5 mg) by mouth nightly as needed for Insomnia. 30 Tablet 01/08/2018 01/07/2019 HYOSCYAMINE 0.125 mg Tablet, Sublingual DISSOLVE 1 TABLET UNDER THE TONGUE FOUR TIMES DAILY NEEDED 90 Tablet 12/04/2017 04/29/2018 SUMAtriptan (IMITREX) 100 mg tablet TAKE 1 TABLET BY MOUTH AT ONSET OF MIGRAINE. MAY REPEAT AFTER 2 HOURS IF HEADACHE RETURNS. NOT TO EXCEED 2 TABLETS IN 24 HOURS 27 Tablet 3 12/03/2017 02/21/2018 cholestyramine, with sugar, (QUESTRAN) 4 gram Powder in Packet MIX AND DRINK 1 PACKET BY MOUTH DAILY 90 Package 3 10/11/2017 11/24/2018 naproxen (NAPROSYN) 500 mg tablet TAKE 1 TABLET BY MOUTH TWICE DAILY 180 Tablet 09/11/2017 11/24/2018 lisinopril-hydroCHLOROt hiazide (ZESTORETIC) 10-12.5 mg tablet Take 1 Tablet by mouth daily. 90 Tablet 3 03/26/2017 04/04/2018 clobetasol (TEMOVATE) 0.05 % Solution Apply to affected area 2 times daily as needed for Other (See Comment) (dermatitis). 50 mL 01/02/2017 02/15/2018 documented as of this encounter Plan of Treatment Upcoming Encounters Date Type Department Care Team (Late st Contact Info) Description 11/24/2024 9:30 AM CDT Office Visit [facility] Internal Medicine Medical [place] [facility] [address] [facility] [address] [place] [address] Melani Franklin, [address] [facility] [address] [place] [address] documented as of this encounter Procedures Procedure Name Priority Date/Time Associated Diagnosis Comments LIPID PANEL Routine 01/22/2018 8:32 AM MEDIA EXECUTIVE Routine general medical examination at a health care facility COMPREHENSIVE METABOLIC PANEL Routine 01/22/2018 8:32 AM MEDIA EXECUTIVE Routine general medical examination at a health care facility documented in this encounter Results * (ABNORMAL) COMPREHENSIVE METABOLIC PANEL (01/22/2018 8:32 AM MEDIA EXECUTIVE) [facility] SODIUM 141 136 - 145 mmol/L 01/22/2018 9:42 AM MEDIA EXECUTIVE [facility] POTASSIUM 4.0 3.5 - 5.0 mmol/L 01/22/2018 9:42 AM [facility] CHLORIDE 104 98 - 107 mmol/L 01/22/2018 9:42 AM [facility] CO2 25 22 - 29 mmol/L 01/22/2018 9:42 AM [facility] CALCIUM 9.3 8.6 - 10.2 mg/dL 01/22/2018 9:42 AM [facility] BUN 14 6 - 20 mg/dL 01/22/2018 9:42 AM [facility] CREATININE 0.67 0.51 - 0.95 mg/dL 01/22/2018 9:42 AM [facility] GLUCOSE 97 74 - 99 mg/dL 01/22/2018 9:42 AM [employer] [facility] [employer] [facility] TOTAL PROTEIN 7.0 6.7 - 8.6 g/dL 01/22/2018 9:42 AM [facility] ALBUMIN 4.7 3.5 - 5.2 g/dL 01/22/2018 9:42 AM [facility] BILIRUBIN TOTAL 0.7 0.3 - 1.2 mg/dL 01/22/2018 9:42 AM [facility] ALKALINE PHOSPHATASE 46 35 - 104 U/L 01/22/2018 9:42 AM [employer] [facility] [employer] [facility] AST 45(H) <33 U/L 01/22/2018 9:42 AM [employer] [facility] ALT 52(H) <34 U/L 01/22/2018 9:42 AM [employer] [facility] GFR >60 >=60 mL/min/1.7 3 sq meter 01/22/2018 9:42 AM [facility] Comment: eGFR [...] GFR, >60 >=60 mL/min/1.7 3 sq meter 01/22/2018 9:42 AM [facility] [employer] [facility] ANION GAP 12 8 - 16 mmol/L 01/22/2018 9:42 AM [facility] [employer] Blood Venipuncture / Unknown 01/22/2018 8:32 AM MEDIA EXECUTIVE 01/22/2018 8:47 AM [facility] - 01/22/2018 9:42 AM MEDIA EXECUTIVE Samples containing indocyanine green cause interferences on Total and/or Direct Bilirubin and must not be measured. Melani Franklin DO CHEMISTRY ORDERABLES [facility] [employer] [facility]# [id number] [address] [facility] [place] [address] * (ABNORMAL) LIPID PANEL (01/22/2018 8:32 AM MEDIA EXECUTIVE) CHOLESTEROL 228(H) <200 mg/dL 01/22/2018 9:42 AM [facility] [employer] [facility] TRIGLYCERIDE 185(H) <150 mg/dL 01/22/2018 9:42 AM [facility] [employer] [facility] HDL 57 40 - 59 mg/dL 01/22/2018 9:42 AM [facility] [employer] [facility] LDL CALCULATED 134(H) <100 mg/dL 01/22/2018 9:42 AM [facility] [employer] [facility] NON-HDL CHOLESTEROL 171(H) <130 mg/dL 01/22/2018 9:42 AM [facility] [employer] Blood Venipuncture / Unknown 01/22/2018 8:32 AM MEDIA EXECUTIVE 01/22/2018 8:47 AM [facility] [employer] [facility] - 01/22/2018 9:42 AM MEDIA EXECUTIVE TOTAL CHOLESTEROL ??mg/dL ??Desirable <200 ??Borderline high [...] Panels (NCEP/AMA) Melani Franklin DO CHEMISTRY ORDERABLES Performing Organization Address City/State/[facility] Co de Phone Number [facility] LABORATORY SERVICES [facility]# [id number] [address] [place], [place] [id number] documented in this encounter Visit Diagnoses Diagnosis Routine general medical examination at a health care facility documented in this encounter Care Teams Machine Feeder Floorperson Relationship Specialty Start Date End Date Melani Franklin DO [address] [facility] [address] [place] [address] PCP - General Internal Medicine 01/02/17 documented as of this encounter
--- OUTSIDE RECORDS SUMMARY | 2024-02-21 16:37 | XMS_ITS | Encounter Summary ---
Author Organization [facility] Address [address] [place] [address] Care Team Providers Care First Cook Name Role Phone Melani Franklin DO Primary Care Provider [phone] Reason for Visit * Reason Onset Date Comments Medication Refill 03/19/2017 Encounter Details Date Type Department Care Team (Late st Contact Info) Description 03/19/2017 Refill [facility] Internal Medicine [facility] [place] [address] [facility] [address] [place] [address] Melani Franklin, DO [address] [address] Social History Tobacco Use Types [...] Description 11/24/2024 9:30 AM CDT Office Visit [facility] Internal Medicine [facility] [place] [address] [facility] [address] [place] [address] Melani Franklin, DO [address] [facility] [address] [place] [address] documented as of this encounter Visit Diagnoses Not on filedocumented in this encounter Care Teams First Cook Relationship Specialty Start Date End Date Melani Franklin DO [address] [place] [address] PCP - General Internal Medicine 01/02/17 documented as of this encounter
--- OUTSIDE RECORDS SUMMARY | 2024-02-21 16:37 | XMS_ITS | Encounter Summary ---
Author Organization [facility] Address [address] [place] [address] Care Team Providers Care Cath Lab Radiological Technologist Name Role Phone Melani Franklin DO Primary Care Provider [phone] Reason for Visit * Reason Comments Medication Refill Encounter Details Date Type Department Care Team (Late Contact Info) Description 11/24/2018 Refill [facility] [place] Internal Medicine [facility] [address] [facility] [address] [place] [address] Melani Franklin, DO [address] [place] [address] Social History Tobacco Use Types Packs/Day [...] [facility] [place] Internal Medicine [facility] [address] [facility] [address] [place] [address] Melani Franklin DO [address] [address] documented as of this encounter Visit Diagnoses Not on filedocumented in this encounter Care Teams Cath Lab Radiological Technologist Relationship Specialty Start Date End Date Melani Franklin DO [address] [place] [address] PCP - General Internal Medicine 01/02/17 documented as of this encounter
--- OUTSIDE RECORDS SUMMARY | 2024-02-21 16:37 | XMS_ITS | Encounter Summary ---
Author Organization [facility] Address [address] [place] [address] Care Team Providers Care Yard Driver Name Role Phone Melani Franklin DO Primary Care Provider [phone] Reason for Visit * Auth/Cert Specialty Diagnoses / Procedures Referred By Tyrone baxter Referred To Contact Laboratory [address], [place] [address] Referral ID Status Reason Start Date Expiration Date Visits Re quested Visits Authorized [id number] 1 1 Encounter Details Date Type Department Care Team (Latest Contact Info) Description 01/09/2019 8:27 AM RETAIL SALES ASSOCIATE SEASONAL - 01/09/2019 11:59 PM [facility] Hospital Encounter [facility] Laboratory Services Medical [address] [address] Melani Franklin DO [address] [facility] [address] [place] [address] Discharge Disposition: Home or Self [...] daily. RESVERATROL ORAL Take by mouth daily. zolpidem (AMBIEN) 5 mg tabletIndications:Inso mnia, unspecified type Take 1 Tablet (5 mg) by mouth nightly as needed for Insomnia. 30 Tablet 01/07/2019 07/10/2019 valACYclovir (VALTREX) 1 gram tabletIndications:Cold sore Take 2 Tablets (2,000 mg) by mouth 2 times daily. 4 Tablet 1 01/07/2019 06/19/2019 escitalopram oxalate (LEXAPRO) 10 mg tabletIndications:Mild episode of recurrent major depressive disorder Take 1 Tablet (10 mg) by mouth daily. 30 Tablet 1 01/07/2019 03/03/2019 cholestyramine, with sugar, (QUESTRAN) 4 gram Powder in Packet MIX ONE PACKETE IN LIQUID AND DRINK BY MOUTH DAILY 90 Package 11/27/2018 02/20/2019 naproxen (NAPROSYN) 500 mg tablet TAKE 1 TABLET BY MOUTH TWICE DAILY 180 Tablet 11/27/2018 06/16/2020 lisinopril-hydroCHLORO thiazide (ZESTORETIC) 10-12.5 mg tablet TAKE [...] [facility] Internal Medicine Medical [place] A [facility] [address] [facility] [address] [address] Melani Franklin, [address] [facility] [address] [place] [address] documented as of this encounter Procedures Procedure Name Priority Date/Time Associated Diagnosis Comments TSH REFLEXIVE Routine 01/09/2019 8:31 AM RETAIL SALES ASSOCIATE SEASONAL Encounter for routine adult health examination without abnormal findings CBC WITH DIFFERENTIAL Routine 01/09/2019 8:31 AM RETAIL SALES ASSOCIATE SEASONAL Encounter for routine adult health examination without abnormal findings LIPID PANEL Routine 01/09/2019 8:31 AM RETAIL SALES ASSOCIATE SEASONAL Encounter for routine adult health examination without abnormal findings COMPREHENSIVE METABOLIC PANEL Routine 01/09/2019 8:31 AM RETAIL SALES ASSOCIATE SEASONAL Encounter for routine adult health examination without abnormal findings documented in this encounter Results * CBC WITH DIFFERENTIAL (01/09/2019 8:31 AM RETAIL SALES ASSOCIATE SEASONAL) WBC 4.5 4.0 - 9.8 K/uL 01/09/2019 9:13 AM RETAIL SALES ASSOCIATE SEASONAL [employer] [facility] - [facility] RBC 3.96 3.90 - 4.90 M/uL 01/09/2019 9:13 AM [employer] [facility] - [facility] HEMOGLOBIN 12.8 11.8 - 14.8 g/dL 01/09/2019 9:13 AM RETAIL SALES ASSOCIATE SEASONAL [employer] [facility] - [facility] HEMATOCRIT 38.4 35.5 - 44.0 % 01/09/2019 9:13 AM RETAIL SALES ASSOCIATE SEASONAL [employer] [facility] - [facility] MCV 97.0 82.0 - 99.0 fL 01/09/2019 9:13 AM [employer] [facility] - [facility] MCH 32.3 27.2 - 32.6 pg 01/09/2019 9:13 AM RETAIL SALES ASSOCIATE SEASONAL [employer] [facility] - [facility] MCHC 33.3 31.5 - 35.5 g/dL 01/09/2019 9:13 AM RETAIL SALES ASSOCIATE SEASONAL [employer] LABORATORY SERVICES - . [facility] RDW 12.0 11.5 - 14.5 % 01/09/2019 9:13 AM RETAIL SALES ASSOCIATE SEASONAL [employer] [facility] - [facility] RDW-STDEV 42.9 37.1 - 48.7 fL 01/09/2019 9:13 AM RETAIL SALES ASSOCIATE SEASONAL [employer] [facility] - [facility] PLATELETS 181 140 - 350 K/uL 01/09/2019 9:13 AM RETAIL SALES ASSOCIATE SEASONAL [employer] [facility]ORATORY SERVICES - . [facility] MPV 12.1 9.3 - 12.4 fL 01/09/2019 9:13 AM RETAIL SALES ASSOCIATE SEASONAL [employer] [facility] NEUTROPHILS 61 % 01/09/2019 9:13 AM [facility] [employer] [facility] LYMPHOCYTES 29 % 01/09/2019 9:13 AM [facility] [employer] [facility] MONOCYTES 8 % 01/09/2019 9:13 AM [facility] [employer] [facility] EOSINOPHILS 1 % 01/09/2019 9:13 AM [facility] [employer] [facility] BASOPHILS 0 % 01/09/2019 9:13 AM [facility] [employer] [facility] IMMATURE GRANULOCYTES 0 % 01/09/2019 9:13 AM [facility] [employer] [facility] NEUTROPHIL ABSOLUTE 2.76 1.90 - 7.00 K/uL 01/09/2019 9:13 AM [facility] [employer] [facility] LYMPHOCYTE ABSOLUTE 1.32 0.70 - 4.50 K/uL 01/09/2019 9:13 AM [facility] [employer] [facility] MONOCYTE ABSOLUTE 0.36 0.10 - 1.30 K/uL 01/09/2019 9:13 AM [facility] [employer] [facility] - [facility] EOSINOPHIL ABSOLUTE 0.06 0.00 - 0.70 K/uL 01/09/2019 9:13 AM [facility] [employer] [facility] BASOPHILS ABSOLUTE 0.01 0.00 - 0.20 K/uL 01/09/2019 9:13 AM [facility] [employer] [facility] IMMATURE GRANULOCYTES ABSOLUTE 0.01 0.00 - 0.03 K/uL 01/09/2019 9:13 AM [facility] [employer] [facility] Blood Venipuncture / Unknown 01/09/2019 8:31 AM RETAIL SALES ASSOCIATE SEASONAL 01/09/2019 9:02 AM RETAIL SALES ASSOCIATE SEASONAL Melani Franklin DO HEMATOLOGY ORDERABLE S [employer] [facility] CLIA# [id number] [facility] [address] [id number] * COMPREHENSIVE METABOLIC PANEL (01/09/2019 8:31 AM RETAIL SALES ASSOCIATE SEASONAL) SODIUM 138 136 - 145 mmol/L 01/09/2019 9:54 AM [facility] [employer] [facility] POTASSIUM 4.1 3.5 - 5.0 mmol/L 01/09/2019 9:54 AM [employer] [facility] CHLORIDE 101 98 - 107 mmol/L 01/09/2019 9:54 AM [employer] [facility] CO2 28 22 - 29 mmol/L 01/09/2019 9:54 AM [employer] [facility] CALCIUM 9.0 8.6 - 10.2 mg/dL 01/09/2019 9:54 AM [employer] [facility] BUN 15 6 - 20 mg/dL 01/09/2019 9:54 AM [employer] [facility] CREATININE 0.71 0.51 - 0.95 mg/dL 01/09/2019 9:54 AM [employer] [facility] GLUCOSE 94 74 - 99 mg/dL 01/09/2019 9:54 AM [employer] [facility] TOTAL PROTEIN 7.2 6.7 - 8.6 g/dL 01/09/2019 9:54 AM [employer] [facility] ALBUMIN 4.7 3.5 - 5.2 g/dL 01/09/2019 9:54 AM [employer] [facility] BILIRUBIN TOTAL 0.5 0.3 - 1.2 mg/dL 01/09/2019 9:54 AM [employer] [facility] ALKALINE PHOSPHATASE 45 35 - 104 U/L 01/09/2019 9:54 AM [employer] [facility] AST 29 <33 U/L 01/09/2019 9:54 AM [employer] [facility] ALT 26 <34 U/L 01/09/2019 9:54 AM [employer] [facility] GFR >60 >=60 mL/min/1.7 3 sq meter 01/09/2019 9:54 AM [employer] [facility] Comment: eGFR [...] GFR, >60 >=60 mL/min/1.7 3 sq meter 01/09/2019 9:54 AM [facility] ANION GAP 9 8 - 16 mmol/L 01/09/2019 9:54 AM [facility] Blood Venipuncture / Unknown 01/09/2019 8:31 AM RETAIL SALES ASSOCIATE SEASONAL 01/09/2019 9:02 AM RETAIL SALES ASSOCIATE SEASONAL Narrative [facility] - 01/09/2019 9:54 AM RETAIL SALES ASSOCIATE SEASONAL Samples containing indocyanine green cause interferences on Total and/or Direct Bilirubin and must not be measured. Melani Franklin DO CHEMISTRY ORDERABLES [facility] [employer] [facility]# [id number] 5 [facility] [place] [address] * (ABNORMAL) LIPID PANEL (01/09/2019 8:31 AM RETAIL SALES ASSOCIATE SEASONAL) CHOLESTEROL 217(H) <200 mg/dL 01/09/2019 9:54 AM [facility] [employer] [facility] TRIGLYCERIDE 226(H) <150 mg/dL 01/09/2019 9:54 AM [facility] HDL 49 40 - 59 mg/dL 01/09/2019 9:54 AM [facility] [employer] [facility] LDL CALCULATED 123(H) <100 mg/dL 01/09/2019 9:54 AM [facility] NON-HDL CHOLESTEROL 168(H) <130 mg/dL 01/09/2019 9:54 AM [facility] Blood Venipuncture / Unknown 01/09/2019 8:31 AM RETAIL SALES ASSOCIATE SEASONAL 01/09/2019 9:02 AM RETAIL SALES ASSOCIATE SEASONAL Narrative [facility] - 01/09/2019 9:54 AM RETAIL SALES ASSOCIATE SEASONAL TOTAL CHOLESTEROL ??mg/dL ??Desirable <200 ??Borderline high [...] Franklin DO CHEMISTRY ORDERABLES Performing Organization Address City/[facility]/ZIP Co de Phone Number [facility]# [id number] [address] [place] [facility] [place] [id number] * TSH REFLEXIVE (01/09/2019 8:31 AM RETAIL SALES ASSOCIATE SEASONAL) TSH 1.40 0.27 - 4.20 uIU/mL 01/09/2019 9:59 AM RETAIL SALES ASSOCIATE SEASONAL [facility] Blood Venipuncture / Unknown 01/09/2019 8:31 AM RETAIL SALES ASSOCIATE SEASONAL 01/09/2019 9:02 AM RETAIL SALES ASSOCIATE SEASONAL Melani Franklin DO CHEMISTRY ORDERABLES Performing Organization Address [facility] Co de Phone Number [facility]# [id number] [address] [place] [address] documented in this encounter Visit Diagnoses Diagnosis Encounter for routine adult health examination without abnormal findings documented in this encounter Care Teams Yard Driver Relationship Specialty Start Date End Date Melani Franklin DO [address] [facility] [address] [place], [place] [address] PCP - General Internal Medicine 01/02/17 documented as of this encounter
--- OUTSIDE RECORDS SUMMARY | 2024-02-21 16:37 | XMS_ITS | Encounter Summary ---
Author Organization [facility] Address [address] [place] [address] Care Team Providers Care Triple Valve Tester Name Role Phone Melani Franklin DO Primary Care Provider [phone] Reason for Visit * Reason Comments Medication Refill Encounter Details Date Type Department Care Team (Late Contact Info) Description 06/28/2018 Refill [facility] Internal Medicine [facility] [address] [place] [address] Melani Franklin DO [address] [address] Social History Tobacco Use Types [...] * Telephone Encounter - Alix Finn - 07/02/2018 8:36 AM CDT pending documented in this encounter Plan of Treatment Upcoming Encounters Date Type Department Care Team (Late st Contact Info) Description 11/24/2024 9:30 AM CDT Office Visit [facility] Internal Medicine [facility] [address] [facility] [address] [address] Melani Franklin DO [address] [facility] [address] [place] [address] documented as of this encounter Visit Diagnoses Not on filedocumented in this encounter Care Teams Triple Valve Tester Relationship Specialty Start Date End Date Melani Franklin DO [address] [facility] [address] [place] [address] PCP - General Internal Medicine 01/02/17 documented as of this encounter
--- OUTSIDE RECORDS SUMMARY | 2024-02-21 16:37 | XMS_ITS | Encounter Summary ---
Author Organization [facility] Address [address] [place] [address] Care Team Providers Care Oncology Account Specialist Name Role Phone Melani Franklin DO Primary Care Provider [phone] Reason for Visit * Reason Comments Medication Refill Encounter Details Date Type Department Care Team (Late Contact Info) Description 09/02/2017 Refill [facility] Internal Medicine [facility] [address] [facility] [address] [place] [address] Melani Franklin DO [address] [address] Migraine with aura and without [...] Visit [facility] Internal Medicine [facility] [address] [facility] [address] [place] [address] Melani Franklin DO [address] [facility] [address] [place] [address] documented as of this encounter Visit Diagnoses Diagnosis Migraine with aura and without status migrainosus, not intractable Migraine with aura, without mention of intractable migraine without mention of status migrainosus Insomnia, unspecified type documented in this encounter Care Teams Oncology Account Specialist Relationship Specialty Start Date End Date Melani Franklin DO [address] [place] [address] PCP - General Internal Medicine 01/02/17 documented as of this encounter
--- OUTSIDE RECORDS SUMMARY | 2024-02-21 16:37 | XMS_ITS | Encounter Summary ---
Author Organization [facility] Address [address] [place] [address] Care Team Providers Care Geodetic Computator Name Role Phone Melani Franklin DO Primary Care Provider [phone] Reason for Visit * Reason Comments Medication Refill Encounter Details Date Type Department Care Team (Late Contact Info) Description 12/03/2017 Refill [facility] Internal Medicine [facility] [address] [facility] [address] [place] [address] Aryan Soto MD [address] [place], [place] [address] [address] Social History Tobacco Use Types [...] Office Visit [facility] Internal Medicine [facility] [address] [facility] [address] [place] [address] Melani Franklin DO [address] [address] [place] [address] documented as of this encounter Visit Diagnoses Not on filedocumented in this encounter Care Teams Geodetic Computator Relationship Specialty Start Date End Date Melani Franklin DO [address] [place] [address] PCP - General Internal Medicine 01/02/17 documented as of this encounter
--- OUTSIDE RECORDS SUMMARY | 2024-02-21 16:37 | XMS_ITS | Encounter Summary ---
Author Organization [facility] Address [address] [place] [address] Care Team Providers Care Weather Teacher Name Role Phone Melani Franklin DO Primary Care Provider [phone] Encounter Details Date Type Department Care Team (Late Contact Info) Description 08/08/2018 Orders Only [facility] Internal Medicine [facility] [address] [facility] [address] [place] [address] Other, [place] NO ADDRESS ON [...] Office Visit [facility] Internal Medicine [facility] [address] [facility] [address] [place] [address] Melani Franklin, [address] [facility] [address] [place] [address] documented as of this encounter Procedures Procedure Name Priority Date/Time Associated Diagnosis Comments MAMMO SCREEN BILAT W OR WO CAD Routine 08/06/2018 documented in this encounter Results * MAMMO SCREEN BILAT W OR WO CAD (08/06/2018) Anatomical Region Laterality Modality Breast Bilateral Other Stl Other MAMMO ORDERABLES documented in this encounter Visit Diagnoses Not on filedocumented in this encounter Care Teams Weather Teacher Relationship Specialty Start Date End Date Melani Franklin DO [address] [facility] [address] [place] [address] PCP - General Internal Medicine 01/02/17 documented as of this encounter
--- OUTSIDE RECORDS SUMMARY | 2024-02-21 16:37 | XMS_ITS | Encounter Summary ---
Author Organization [facility] Address [address] [place] [address] Care Team Providers Care Associate Professor Of Psychology Name Role Phone Melani Franklin DO Primary Care Provider Reason for Visit * Reason Comments Physical Sleep Problem Encounter Details Date Type Department Care Team (Late st Contact Info) Description 01/08/2018 10:20 AM CRAFT DEMONSTRATOR Office Visit [facility] Internal Medicine Medical [place] [facility] [address] [facility] [address] [place] [address] Melani Franklin, [address] [facility] [address] [place] [address] Routine general medical examination at a health care facility (Primary Dx); Insomnia, unspecified type; Benign hypertension; Migraine with aura and without status migrainosus, not intractable; Postcholecystectomy diarrhea Social History Tobacco Use Types Packs/Day Years [...] Sign Reading Time Taken Comments Blood Pressure 112/80 01/08/2018 9:47 AM CRAFT DEMONSTRATOR Pulse 70 01/08/2018 9:47 AM CRAFT DEMONSTRATOR Temperature 37 ??C (98.6 ??F) 01/08/2018 9:47 AM CRAFT DEMONSTRATOR Respiratory Rate 16 01/08/2018 9:47 AM CRAFT DEMONSTRATOR Oxygen Saturation 99% 01/08/2018 9:47 AM CRAFT DEMONSTRATOR Inhaled Oxygen Concentration - - Weight 62.6 kg (138 lb) 01/08/2018 9:47 AM CRAFT DEMONSTRATOR Height 158.8 cm (5' 2.5 ) 01/08/2018 9:47 AM CRAFT DEMONSTRATOR Body Mass Index 24.84 01/08/2018 9:47 AM CRAFT DEMONSTRATOR documented in this encounter Progress Notes * Melani Cifuentes, - 01/08/2018 10:51 AM CST HISTORY OF PRESENT ILLNESS Jody Mason, a 47 y.o. female presents with a Chief Complaint of Physical and Sleep Problem Subjective HPI Here for PE. The medications, allergies, past medical history, family history, and social history are all reviewed and updated at this visit Migraines- 1-2x monthly. Gets visual and olfactory auras, posterior headache. Sometimes imitrex doesn't work very quickly. HTN- Patient is compliant with current antihypertensive medications. Denies BRANNON, syncope, focal neuro deficits. Insomnia- got off Ambien. Now would like a rare prn rx for it. For example- was on prednisone for tendonitis and Postchole diarrhea- uses questran and hyoscyamine for this. Perioral dermatitis- on doxy. Follows with Dr. Bradford. Patient Active Problem List Diagnosis Date Noted ??? Benign hypertension 01/02/2017 ??? Postcholecystectomy diarrhea 01/02/2017 ??? Migraine with aura and without status migrainosus, not intractable 01/02/2017 ??? Insomnia 01/02/2017 Current Outpatient Prescriptions: ??? HYOSCYAMINE 0.125 mg Tablet, Sublingual, DISSOLVE 1 TABLET UNDER THE TONGUE FOUR TIMES DAILY ASNEEDED, Disp: 90 Tablet, Rfl: 0 ??? SUMAtriptan (IMITREX) 100 mg tablet, TAKE 1 TABLET BY MOUTH AT ONSET OF MIGRAINE. MAY REPEAT AFTER 2 HOURS IF HEADACHE RETURNS. NOT TO EXCEED 2 TABLETS IN 24 HOURS, Disp: 27 Tablet, Rfl: 3 ??? cholestyramine, with sugar, (QUESTRAN) 4 gram Powder in Packet, MIX AND DRINK 1 PACKET BY MOUTHDAILY, Disp: 90 Package, Rfl: 3 ??? naproxen (NAPROSYN) 500 mg tablet, TAKE 1 TABLET BY MOUTH TWICE DAILY, Disp: 180 Tablet, Rfl: 0 ??? lisinopril-hydroCHLOROthiazide (ZESTORETIC) 10-12.5 mg tablet, Take 1 Tablet by mouth daily., Disp: 90 Tablet, Rfl: 3 ??? NORTREL 1, 28, 1-35 mg-mcg tablet, Take 1 Tablet by mouth daily., Disp: , Rfl: 3 ??? doxycycline hyclate (VIBRAMYCIN) 100 mg capsule, Take 1 Capsule by mouth 1 time daily as needed., Disp: , Rfl: 1 ??? clobetasol (TEMOVATE) 0.05 % Solution, Apply to affected area 2 times daily as needed for Other(See Comment) (dermatitis)., Disp: 50 mL, Rfl: 0 REVIEW OF SYSTEMS Review of Systems Constitutional: [...] Negative for dizziness, weakness, numbness and headaches. Objective PHYSICAL EXAM BP 112/80 (BP Location: Left arm, Patient Position (BP): Sitting, BP Cuff Size: Adult) Pulse 70 Temp 98.6 ??F (37 ??C) (Oral) Resp 16 Ht 5' 2.5 (1.588 m) Wt 62.6 kg (138 lb) SpO2 99% BMI 24.84 kg/m?? Physical Exam Constitutional: She is oriented to person, place, and time. She appears well- developed and well-nourished. No distress. HENT: Head: Normocephalic and atraumatic. Mouth/Throat: No oropharyngeal exudate. Eyes: Pupils are equal, round, and reactive to light. EOM are normal. No scleral icterus. Neck: Normal range of motion. Neck supple. No thyromegaly present. Cardiovascular: Normal rate, regular rhythm, normal heart sounds and intact distal pulses. No murmur heard. Pulmonary/Chest: Effort normal and breath sounds normal. No respiratory distress. She has no wheezes. Abdominal: Soft. Bowel sounds are normal. She exhibits no distension. There is no tenderness. Musculoskeletal: Normal range of motion. She exhibits no edema or tenderness. Lymphadenopathy: She has no cervical adenopathy. Neurological: She is alert and oriented to person, place, and time. Skin: Skin is warm and dry. She is not diaphoretic. Psychiatric: She has a normal mood and affect. Her behavior is normal. Judgment and thought contentnormal. Procedures Assessment ASSESSMENT and PLAN: ICD-10-CM ICD-9-CM 1. Routine [facility] Z00.00 V70.0 LIPID PANEL COMPREHENSIVE METABOLIC PANEL 2. Insomnia, unspecified type G47.00 780.52 zolpidem (AMBIEN) 5 mg tablet 3. Benign hypertension I10 401.1 4. Migraine with aura and without status migrainosus, not intractable G43.109 346.00 5. Postcholecystectomy diarrhea R19.7 564.4 Z90.49 Health maintenance issues were discussed with the patient. This included colonoscopy (due at age 49), bone density, calcium replacement, exercise, diet, mammograms (neg 2018), pap smears ([place], [place] senior mortgage underwriter 05/2017 pap neg), self breast exams, immunizations and screening labs. Exercise was discussed with the patient. I emphasized the need to exercise a minimum of 5 days per week for 30 minutes at a time. Moderate cardiac exercise was explained to patient as equivalent to 3-4 miles/hour of walking. Other health issues as above are well controlled on current meds. Ok to take rare prn Ambien. The 10-year ASCVD risk score (Yeny DC Jr., et al., 2013) is: 1.3% Values used to calculate the score: Age: 47 years Sex: Female Is Non- : No Diabetic: No Tobacco smoker: No Systolic Blood Pressure: 112 mmHg Is BP treated: Yes HDL Cholesterol: 45 mg/dL Total Cholesterol: 192 mg/dL T DEMONSTRATOR documented in this encounter Plan of Treatment Upcoming Encounters Date Type Department Care Team (Late st Contact Info) Description 11/24/2024 9:30 AM CDT Office Visit [facility] Internal Medicine Medical [place] [facility] [address] [facility] [address] [address] Melani Franklin, DO [address] [facility] [address] [place] [address] documented as of this encounter Results * (ABNORMAL) COMPREHENSIVE METABOLIC PANEL (01/22/2018 8:32 AM CRAFT DEMONSTRATOR) SODIUM 141 136 - 145 mmol/L 01/22/2018 9:42 AM CRAFT DEMONSTRATOR [facility] POTASSIUM 4.0 3.5 - 5.0 mmol/L 01/22/2018 9:42 AM CRAFT DEMONSTRATOR [facility] CHLORIDE 104 98 - 107 mmol/L 01/22/2018 9:42 AM CRAFT DEMONSTRATOR [facility] CO2 25 22 - 29 mmol/L 01/22/2018 9:42 AM [facility] CALCIUM 9.3 8.6 - 10.2 mg/dL 01/22/2018 9:42 AM [facility] BUN 14 6 - 20 mg/dL 01/22/2018 9:42 AM [facility] CREATININE 0.67 0.51 - 0.95 mg/dL 01/22/2018 9:42 AM [facility] GLUCOSE 97 74 - 99 mg/dL 01/22/2018 9:42 AM [facility] TOTAL PROTEIN 7.0 6.7 - 8.6 g/dL 01/22/2018 9:42 AM [facility] ALBUMIN 4.7 3.5 - 5.2 g/dL 01/22/2018 9:42 AM CRAFT DEMONSTRATOR [facility] BILIRUBIN TOTAL 0.7 0.3 - 1.2 mg/dL 01/22/2018 9:42 AM CRAFT DEMONSTRATOR [facility] ALKALINE PHOSPHATASE 46 35 - 104 U/L 01/22/2018 9:42 AM CRAFT DEMONSTRATOR [facility] AST 45(H) <33 U/L 01/22/2018 9:42 AM CRAFT DEMONSTRATOR [facility] ALT 52(H) <34 U/L 01/22/2018 9:42 AM [facility] GFR >60 >=60 mL/min/1.7 3 sq meter 01/22/2018 9:42 AM [facility] Comment: eGFR has not been validated [...] mL/min/1.7 3 sq meter 01/22/2018 9:42 AM [facility] ANION GAP 12 8 - 16 mmol/L 01/22/2018 9:42 AM [facility] Blood Venipuncture / Unknown 01/22/2018 8:32 AM CRAFT DEMONSTRATOR 01/22/2018 8:47 AM [facility] - 01/22/2018 9:42 AM [facility] Samples containing indocyanine green cause interferences on Total and/or Direct Bilirubin and must not be measured. Melani Franklin DO CHEMISTRY ORDERABLES [facility]# [id number] [address] [facility] [place] [address] * (ABNORMAL) LIPID PANEL (01/22/2018 8:32 AM CRAFT DEMONSTRATOR) CHOLESTEROL 228(H) <200 mg/dL 01/22/2018 9:42 AM [facility] TRIGLYCERIDE 185(H) <150 mg/dL 01/22/2018 9:42 AM [facility] HDL 57 40 - 59 mg/dL 01/22/2018 9:42 AM [facility] LDL CALCULATED 134(H) <100 mg/dL 01/22/2018 9:42 AM [facility] NON-HDL CHOLESTEROL 171(H) <130 mg/dL 01/22/2018 9:42 AM [facility] Blood Venipuncture / Unknown 01/22/2018 8:32 AM CRAFT DEMONSTRATOR 01/22/2018 8:47 AM CRAFT DEMONSTRATOR [facility] LABORATORY [facility] - 01/22/2018 9:42 AM CRAFT DEMONSTRATOR TOTAL CHOLESTEROL ??mg/dL ??Desirable <200 ??Borderline high [...] Panels (NCEP/AMA) Melani Franklin DO CHEMISTRY ORDERABLES [facility]# [id number] [address] [place] [address] documented in this encounter Visit Diagnoses Diagnosis Routine general medical examination at a health care facility- Primary Insomnia, unspecified type Benign hypertension Essential hypertension, benign Migraine with aura and without status migrainosus, not intractable Migraine with aura, without mention of intractable migraine without mention of status migrainosus Postcholecystectomy diarrhea Other postoperative functional disorders documented in this encounter Care Teams Associate Professor Of Psychology Relationship Specialty Start Date End Date Melani Franklin DO [address] [facility] [address] [place] [address] PCP - General Internal Medicine 01/02/17 documented as of this encounter
--- OUTSIDE RECORDS SUMMARY | 2024-02-21 16:37 | XMS_ITS | Encounter Summary ---
Author Organization [facility] Address [address] [place] [address] Care Team Providers Care Fire Operations Forester Name Role Phone Melani Franklin DO Primary Care Provider [phone] Encounter Details Date Type Department Care Team (Late Contact Info) Description 01/09/2019 Orders Only [facility] Admitting [address] [place] [address] Melani Franklin DO [address] [facility] [address] [place] [address] Social History Tobacco Use Types [...] Medicine [facility] Internal Medicine Medical [place] A [facility] [address] [facility] [address] [address] Melani Franklin DO [address] [facility] [address] [place] [address] documented as of this encounter Visit Diagnoses Not on filedocumented in this encounter Care Teams Fire Operations Forester Relationship Specialty Start Date End Date Melani Franklin DO [address] [facility] [address] [place] [address] PCP - General Internal Medicine 01/02/17 documented as of this encounter
--- OUTSIDE RECORDS SUMMARY | 2024-02-21 16:37 | XMS_ITS | Encounter Summary ---
Author Organization [facility] Address [address] [place] [address] Care Team Providers Care Distributor Sales Consultant Name Role Phone Melani Franklin DO Primary Care Provider [phone] Reason for Visit * Reason Comments Medication Refill Encounter Details Date Type Department Care Team (Late st Contact Info) Description 03/01/2017 Refill [facility] Internal Medicine [facility] [address] [facility] [address] [place] [address] Melani Franklin DO [address] [address] Migraine with aura and without [...] AM CDT Office Visit [facility] Internal Medicine [facility] [address] [facility] [address] [place] [address] Melani Franklin DO [address] [facility] [address] [place] [address] documented as of this encounter Visit Diagnoses Diagnosis Migraine with aura and without status migrainosus, not intractable Migraine with aura, without mention of intractable migraine without mention of status migrainosus Insomnia, unspecified type documented in this encounter Care Teams Distributor Sales Consultant Relationship Specialty Start Date End Date Melani Franklin DO [address] [place] [address] PCP - General Internal Medicine 01/02/17 documented as of this encounter
--- OUTSIDE RECORDS SUMMARY | 2024-02-21 16:37 | XMS_ITS | Encounter Summary ---
Author Organization [facility] Address [address] [place] [address] Care Team Providers Care Test Rack Operator Name Role Phone Melani Franklin DO Primary Care Provider [phone] Reason for Visit * Reason Comments Medication Refill Encounter Details Date Type Department Care Team (Late Contact Info) Description 07/09/2017 Refill [facility] Internal Medicine [facility] [address] [facility] [address] [place] [address] Melani Franklin, DO [address] [place] [address] Social History Tobacco Use Types Packs/Day [...] [facility] ([facility]3] Internal Medicine [facility] [address] [facility] [address] [place] [address] Melani Franklin DO [address] [address] documented as of this encounter Visit Diagnoses Not on filedocumented in this encounter Care Teams Test Rack Operator Relationship Specialty Start Date End Date Melani Franklin DO [address] [place] [address] PCP - General Internal Medicine 01/02/17 documented as of this encounter
--- OUTSIDE RECORDS SUMMARY | 2024-02-21 16:37 | XMS_ITS | Encounter Summary ---
Author Organization [facility] Address [address] [place] [address] Care Team Providers Care Liaison Inspection Laboratory Assistant Name Role Phone Melani Franklin DO Primary Care Provider [phone] Reason for Visit * Reason Comments Medication Refill Encounter Details Date Type Department Care Team (Late Contact Info) Description 02/15/2018 Refill [facility] Internal Medicine Medical [facility] [address] [facility] [address] [place] [address] Melani Franklin DO [address] [address] Social History Tobacco Use Types [...] * Telephone Encounter - Nikki Shaw - 02/15/2018 1:41 PM CST Mail to patient: Pt needs call back: Last refilled: 01/01/17 Quantity given: 50ML Number of refills: 0 Last appointment: 01/08/18 (PE) Next appointment: BALANCER documented in this encounter Plan of Treatment Upcoming Encounters Date Type Department Care Team (Late st Contact Info) Description 11/24/2024 9:30 AM CDT Office Visit [facility] Internal Medicine Medical [place] [facility] [address] [facility] [address] [address] Melani Franklin DO [address] [facility] [address] [place], [place] [address] documented as of this encounter Visit Diagnoses Not on filedocumented in this encounter Care Teams Liaison Inspection Laboratory Assistant Relationship Specialty Start Date End Date Melani Franklin DO [address] [facility] [address] [place] [address] PCP - General Internal Medicine 01/02/17 documented as of this encounter
--- OUTSIDE RECORDS SUMMARY | 2024-02-21 16:37 | XMS_ITS | Encounter Summary ---
Author Organization [facility] Address [address] [place] [address] Care Team Providers Care Gas Plumber Name Role Phone Melani Franklin DO Primary Care Provider [phone] Reason for Visit * Reason Comments Medication Refill Encounter Details Date Type Department Care Team (Late Contact Info) Description 04/04/2018 Refill [facility] Internal Medicine [facility] [address] [facility] [address] [place] [address] Melani Franklin, DO [address] [place] [address] Social History Tobacco Use Types Packs/Day [...] [facility] [address] [facility] [address] [place] [address] Melani Franklin DO [address] [address] documented as of this encounter Visit Diagnoses Not on filedocumented in this encounter Care Teams Gas Plumber Relationship Specialty Start Date End Date Melani Franklin DO [address] [place] [address] PCP - General Internal Medicine 01/02/17 documented as of this encounter
--- OUTSIDE RECORDS SUMMARY | 2024-02-21 16:37 | XMS_ITS | Encounter Summary ---
Author Organization [facility] Address [address] [place] [address] Care Team Providers Care Carpet Loom Fixer Name Role Phone Melani Franklin DO Primary Care Provider [phone] Reason for Visit * Reason Onset Date Comments Medication Refill 03/26/2017 Encounter Details Date Type Department Care Team (Late Contact Info) Description 03/26/2017 Telephone [facility] Internal Medicine [facility] [address] [facility] [address] [place] [address] Melani Franklin, DO [address] [address] Medication Refill Social History Tobacco Use [...] [facility] ([facility]3] Internal Medicine [facility] [address] [facility] [address] [place] [address] Melani Franklin, DO [address] [facility] [address] [place] [address] documented as of this encounter Visit Diagnoses Not on filedocumented in this encounter Care Teams Carpet Loom Fixer Relationship Specialty Start Date End Date Melani Franklin DO [address] [place] [address] PCP - General Internal Medicine 01/02/17 documented as of this encounter
--- OUTSIDE RECORDS SUMMARY | 2024-02-21 16:37 | XMS_ITS | Encounter Summary ---
Author Organization [facility] Address [address] [place] [address] Care Team Providers Care Cdc Associate Name Role Phone Melani Franklin DO Primary Care Provider [phone] Reason for Visit * Reason Onset Date Comments New Prescription Request 08/22/2017 Encounter Details Date Type Department Care Team (Late st Contact Info) Description 08/22/2017 Telephone [facility] Internal Medicine Medical [facility] [address] [facility] [address] [address] Melani Franklin, [address] [facility] [address] [place] [address] New Prescription Request Social History Tobacco Use Types Packs/Day Years [...] * Telephone Encounter - araceli chino - 08/22/2017 4:22 PM CDT Patient has been notified of further information and will try soma before bedtime as reccommended * Telephone Encounter - Leigha Melendez MD - 08/22/2017 3:31 PM CDT We typically don't treat side effects of medication with another medication. Needs to take steroid early in the morning. Please try melatonin 5 mg 30 min prior to sleep. Please let me know if there are questions. Thank you. Leigha Melendez MD * Telephone Encounter - Alix Finn - 08/22/2017 2:33 PM CDT Patient is on prednisone for her shoulder pain which she is tapering off of. The prednisone is keeping her up at night she has 6 more day left of the prednisone She can't wait for Dr. Cifuentes, she wants to sleep tonight. Patient is requesting something for sleep documented in this encounter Plan of Treatment Upcoming Encounters Date Type Department Care Team (Late st Contact Info) Description 11/24/2024 9:30 AM CDT Office Visit [facility] Internal Medicine Medical [place] [facility] [address] [address] Melani Franklin DO [address] [facility] [address] [place], [place] [id number] documented as of this encounter Visit Diagnoses Not on filedocumented in this encounter Care Teams Cdc Associate Relationship Specialty Start Date End Date Melani Franklin DO [address] [place] [address] PCP - General Internal Medicine 01/02/17 documented as of this encounter
--- OUTSIDE RECORDS SUMMARY | 2024-02-21 16:37 | XMS_ITS | Encounter Summary ---
Author Organization [facility] Address [address] [place] [address] Care Team Providers Care Financial Processing Clerk Name Role Phone Melani Franklin DO Primary Care Provider [phone] Reason for Visit * Reason Comments Medication Refill Encounter Details Date Type Department Care Team (Late Contact Info) Description 04/29/2018 Refill [facility] Internal Medicine [facility] [address] [facility] [address] [place] [address] Melani Franklin, DO [address] [place] [address] Social History Tobacco Use Types Packs/Day [...] Office Visit [facility] Internal Medicine [facility] [address] [facility] [address] [place] [address] Melani Franklin DO [address] [address] documented as of this encounter Visit Diagnoses Not on filedocumented in this encounter Care Teams Financial Processing Clerk Relationship Specialty Start Date End Date Melani Franklin DO [address] [place] [address] PCP - General Internal Medicine 01/02/17 documented as of this encounter
--- OUTSIDE RECORDS SUMMARY | 2024-02-21 16:37 | XMS_ITS | Encounter Summary ---
Author Organization [facility] Address [address] [place] [address] Care Team Providers Care School Age Lead Teacher Name Role Phone Melani Franklin DO Primary Care Provider [phone] Encounter Details Date Type Department Care Team ([facility] Contact Info) Description 10/29/2018 Abstract [facility] Internal Medicine [facility] [address] [facility] [address] [place] [address] Melani Franklin, DO [address] [facility] [address] [place] [address] Social History Tobacco Use Types Packs/Day [...] Office Visit [facility] Internal Medicine [facility] [address] [facility] [address] [place] [address] Melani Franklin, DO [address] [facility] [address] [place] [address] documented as of this encounter Visit Diagnoses Not on filedocumented in this encounter Care Teams School Age Lead Teacher Relationship Specialty Start Date End Date Melani Franklin DO [address] [facility] [address] [place] [address] PCP - General Internal Medicine 01/02/17 documented as of this encounter
--- OUTSIDE RECORDS SUMMARY | 2024-02-21 16:37 | XMS_ITS | Encounter Summary ---
Author Organization [facility] Address [address] [place] [address] Care Team Providers Care Fire Management Officer Name Role Phone Melani Franklin DO Primary Care Provider [phone] Reason for Visit * Reason Onset Date Comments Medication Refill 02/21/2018 Encounter Details Date Type Department Care Team (Late st Contact Info) Description 02/21/2018 Refill [facility] Internal Medicine Medical [facility] [address] [facility] [address] [address] Melani Franklin DO [address] [facility] [address] [place] [address] Social History Tobacco Use Types [...] encounter Miscellaneous Notes * Telephone Encounter - Shanika Powers - 02/21/2018 7:17 AM CSTFrom: Jody Mason Sent: 02/21/2018 7:07 AM PAYROLL CONSULTANT Subject: Medication Renewal Request Jody Mason would like a refill of the following medications: SUMAtriptan (IMITREX) 100 mg tablet [Melani Cifuentes DO] [facility] [address] [place] [address] [address] [facility] [address] Delivery method: Pickup OLL CONSULTANT documented in this encounter Plan of Treatment Upcoming Encounters Date Type Department Care Team (Late st Contact Info) Description 11/24/2024 9:30 AM CDT Office Visit [facility] Internal Medicine Medical [place] [facility] [address] [facility] [address] [address] Melani Franklin DO [address] [facility] [address] [place] [address] documented as of this encounter Visit Diagnoses Not on filedocumented in this encounter Care Teams Fire Management Officer Relationship Specialty Start Date End Date Melani Franklin DO [address] [facility] [address] [place], [place] [address] PCP - General Internal Medicine 01/02/17 documented as of this encounter
--- OUTSIDE RECORDS SUMMARY | 2024-02-21 16:37 | XMS_ITS | Encounter Summary ---
Author Organization [facility] Address [address] [place] [address] Care Team Providers Care Large Animal Husbandry Technician Name Role Phone Melani Franklin DO Primary Care Provider [phone] Encounter Details Date Type Department Care Team (Late Contact Info) Description 10/16/2018 Orders Only [facility] Internal Medicine [facility] [address] [facility] [address] [place] [address] Other, Stl NO ADDRESS ON [...] Description 11/24/2024 9:30 AM CDT Office Visit [facility] Internal Medicine [facility] [address] [facility] [address] [place] [address] Melani Franklin, [address] [facility] [address] [place] [address] documented as of this encounter Procedures Procedure Name Priority Date/Time Associated Diagnosis Comments CERV/VAG CYTOPATH, THIN PREP AND HPV Routine 07/02/2018 documented in this encounter Results * CERV/VAG CYTOPATH, THIN PREP AND HPV (07/02/2018) Genital SWAB OF ENDOCERVIX / Unknown Stl Other PATHOLOGY/CYTOLOGY O RDERABLES documented in this encounter Visit Diagnoses Not on filedocumented in this encounter Care Teams Large Animal Husbandry Technician Relationship Specialty Start Date End Date Melani Franklin DO [address] [place] [address] [address] [place] [address] PCP - General Internal Medicine 01/02/17 documented as of this encounter
--- OUTSIDE RECORDS SUMMARY | 2024-02-21 16:37 | XMS_ITS | Encounter Summary ---
Author Organization [facility] Address [address] [place] [address] Care Team Providers Care Hospice Massage Therapist Name Role Phone Melani Franklin DO Primary Care Provider [phone] Encounter Details Date Type Department Care Team (Late Contact Info) Description 01/22/2018 Orders Only [facility] Admitting [address] [place] [address] Melani Franklin DO [address] [facility] [address] [place] [address] Social History Tobacco Use Types [...] Visit [facility] Internal Medicine Medical [place] [facility] [address] [facility] [address] [address] Melani Franklin DO [address] [facility] [address] [place] [address] documented as of this encounter Visit Diagnoses Not on filedocumented in this encounter Care Teams Hospice Massage Therapist Relationship Specialty Start Date End Date Melani Franklin DO [address] [facility] [address] [place] [address] PCP - General Internal Medicine 01/02/17 documented as of this encounter
--- OUTSIDE RECORDS SUMMARY | 2024-02-21 16:37 | XMS_ITS | Encounter Summary ---
Author Organization [facility] Address [address] [place] [address] Care Team Providers Care Business Services Sales Agent Name Role Phone Melani Franklin DO Primary Care Provider Reason for Visit * Reason Comments Medication Refill Encounter Details Date Type Department Care Team (Late Contact Info) Description 01/02/2017 Refill [facility] Internal Medicine [facility] [address] [facility] [address] [place] [address] Melani Franklin, DO [address] [place] [address] Social History Tobacco Use Types Packs/Day [...] Description 11/24/2024 9:30 AM CDT Office Visit [facility] Internal Medicine [facility] [address] [facility] [address] [place] [address] Melani Franklin DO [address] [address] documented as of this encounter Visit Diagnoses Not on filedocumented in this encounter Care Teams Business Services Sales Agent Relationship Specialty Start Date End Date Melani Franklin DO [address] [place] [address] PCP - General Internal Medicine 01/02/17 documented as of this encounter
--- OUTSIDE RECORDS SUMMARY | 2024-02-21 16:37 | XMS_ITS | Encounter Summary ---
Author Organization [facility] Address [address] [place] [address] Care Team Providers Care Shrimp Peeler Name Role Phone Melani Franklin DO Primary Care Provider [phone] Encounter Details Date Type Department Care Team ([facility] Contact Info) Description 10/07/2018 Abstract [facility] Internal Medicine [facility] [address] [facility] [address] [place] [address] Melani Franklin, DO [address] [facility] [address] [place] [address] Social History Tobacco Use Types Packs/Day [...] [facility] Internal Medicine [facility] [address] [facility] [address] [place] [address] Melani Franklin, DO [address] [facility] [address] [place] [address] documented as of this encounter Visit Diagnoses Not on filedocumented in this encounter Care Teams Shrimp Peeler Relationship Specialty Start Date End Date Melani Franklin DO [address] [facility] [address] [place] [address] PCP - General Internal Medicine 01/02/17 documented as of this encounter
--- OUTSIDE RECORDS SUMMARY | 2024-02-21 16:37 | XMS_ITS | Encounter Summary ---
Author Organization [facility] Address [address] [place] [address] Care Team Providers Care Wreath Maker Name Role Phone Melani Franklin DO Primary Care Provider [phone] Reason for Visit * Reason Onset Date Comments flu 03/28/2019 Encounter Details Date Type Department Care Team (Late st Contact Info) Description 03/28/2019 Telephone [facility] Internal Medicine Medical [facility] [address] [facility] [address] [place] [address] Melani Franklin, [address] [facility] [address] [place] [address] flu Social History Tobacco Use Types Packs/Day Years [...] Notes * Telephone Encounter - Radha Bolanos RMA - 03/28/2019 1:38 PM LEAD SOFTWARE DEVELOPMENT ENGINEER Spoke with pt and gave information. Pt understood. SOFTWARE DEVELOPMENT ENGINEER * Telephone Encounter - Melani Franklin DO - 03/28/2019 12:14 PM CST tamiflu for prevention was sent. SOFTWARE DEVELOPMENT ENGINEER * Telephone Encounter - Radha Bolanos RMA - 03/28/2019 11:54 AM LEAD SOFTWARE DEVELOPMENT ENGINEER Pt calling to say that her 2 kids were diagnosed with Influenza B today and would like Tamiflu Last ov 01-07-19 SOFTWARE DEVELOPMENT ENGINEER documented in this encounter Plan of Treatment Upcoming Encounters Date Type Department Care Team (Late st Contact Info) Description 11/24/2024 9:30 AM CDT Office Visit [facility] Internal Medicine Medical [facility] [address] [facility] [address] [address] Melani Franklin DO [address] [facility] [address] [place] [address] documented as of this encounter Visit Diagnoses Not on filedocumented in this encounter Care Teams Wreath Maker Relationship Specialty Start Date End Date Melani Franklin DO [address] [facility] [address] [place] [address] PCP - General Internal Medicine 01/02/17 documented as of this encounter
--- OUTSIDE RECORDS SUMMARY | 2024-02-21 16:37 | XMS_ITS | Encounter Summary ---
Author Organization [facility] Address [address] [place] [address] Care Team Providers Care Coordinator Cardiopulmonary Services Name Role Phone Melani Franklin DO Primary Care Provider [phone] Reason for Visit * Reason Comments Physical Encounter Details Date Type Department Care Team (Late st Contact Info) Description 01/07/2019 9:20 AM BROADLOOM WEAVER Office Visit [facility] Internal Medicine Medical [place] A [facility] [address] [facility] [address] [place] [address] Melani Franklin, [address] [facility] [address] [place] [address] Routine general medical examination at a health care facility (Primary Dx); Insomnia, unspecified type; Benign hypertension; Migraine with aura and without status migrainosus, not intractable; Mild episode of recurrent major depressive disorder; Cold sore; Influenza vaccine needed Social History Tobacco Use Types Packs/Day Years [...] Sign Reading Time Taken Comments Blood Pressure 126/82 01/07/2019 8:58 AM BROADLOOM WEAVER Pulse 77 01/07/2019 8:58 AM BROADLOOM WEAVER Temperature 36.7 ??C (98.1 ??F) 01/07/2019 8:58 AM CS T Respiratory Rate 16 01/07/2019 8:58 AM BROADLOOM WEAVER Oxygen Saturation 99% 01/07/2019 8:58 AM BROADLOOM WEAVER Inhaled Oxygen Concentration - - Weight 63 kg (139 lb) 01/07/2019 8:58 AM BROADLOOM WEAVER Height 158.8 cm (5' 2.52 ) 01/07/2019 8:58 AM CS T Body Mass Index 25 01/07/2019 8:58 AM BROADLOOM WEAVER documented in this encounter Progress Notes * Melani Franklin, - 01/07/2019 9:26 AM CST HISTORY OF PRESENT ILLNESS Jody Mason, a 48 y.o. female presents with a Chief Complaint of Physical Subjective HPI Here for PE. The medications, allergies, past medical history, family history, and social history are all reviewed and updated at this visit HTN- Patient is compliant with current antihypertensive medications. Denies BRANNON, syncope, focal neuro deficits. Migraines- 1-2x monthly. ??Gets visual and olfactory auras, posterior headache. Postchole diarrhea- uses questran and hyoscyamine for this. Insomnia- ambien used rarely prn. Lots of anxiety and depression, emotions all over the place. Periods are now irregular. Getting hotflashes. Patient Active Problem List Diagnosis Date Noted ??? Benign hypertension 01/02/2017 ??? Postcholecystectomy diarrhea 01/02/2017 ??? Migraine with aura and without status migrainosus, not intractable 01/02/2017 ??? Insomnia 01/02/2017 Current Outpatient Medications: ??? montelukast (SINGULAIR) 10 mg tablet, Take 10 mg by mouth daily at bedtime., Disp: , Rfl: ??? glucosamine/chondr evans A sod (OSTEO BI-FLEX ORAL), Take by mouth daily., Disp: , Rfl: ??? cetirizine (ZyrTEC) 10 mg tablet, Take 10 mg by mouth daily., Disp: , Rfl: ??? ALipoic Acid/Bioflav/Mv/Gr Tea (ULTRA FRANCOIS ORAL), Take by mouth daily., Disp: , Rfl: ??? raNITIdine (ZANTAC) 150 mg tablet, Take 150 mg by mouth 2 times daily., Disp: , Rfl: ??? RESVERATROL ORAL, Take by mouth daily., Disp: , Rfl: ??? COLLAGEN MISC, by Misc.(Non-Drug; Combo Route) route daily., Disp: , Rfl: ??? cholestyramine, with sugar, (QUESTRAN) 4 gram Powder in Packet, MIX ONE PACKETE IN LIQUID AND DRINK BY MOUTH DAILY, Disp: 90 Package, Rfl: 0 ??? naproxen (NAPROSYN) 500 mg tablet, TAKE 1 TABLET BY MOUTH TWICE DAILY, Disp: 180 Tablet, Rfl: 0 ??? lisinopril-hydroCHLOROthiazide (ZESTORETIC) 10-12.5 mg tablet, TAKE 1 TABLET BY MOUTH DAILY, Disp: 90 Tablet, Rfl: 2 ??? HYOSCYAMINE 0.125 mg Tablet, Sublingual, DISSOLVE 1 TABLET UNDER THE TONGUE FOUR TIMES DAILY ASNEEDED, Disp: 90 Tablet, Rfl: 2 ??? SUMAtriptan (IMITREX) 100 mg tablet, TAKE 1 TABLET BY MOUTH AT ONSET OF MIGRAINE. MAY REPEAT AFTER 2 HOURS IF HEADACHE RETURNS. NOT TO EXCEED 2 TABLETS IN 24 HOURS., Disp: 27 Tablet, Rfl: 3 ??? clobetasol (TEMOVATE) 0.05 % Solution, APPLY TO THE AFFECTED AREA TWICE DAILY NEEDED FOR DERMATITIS, Disp: 50 mL, Rfl: 0 ??? zolpidem (AMBIEN) 5 mg tablet, Take 1 Tablet (5 mg) by mouth nightly as needed for Insomnia., Disp: 30 Tablet, Rfl: 0 ??? NORTREL 1/35, 28, 1-35 mg-mcg tablet, Take 1 Tablet by mouth daily., Disp: , Rfl: 3 REVIEW OF SYSTEMS Review of Systems Constitutional: [...] weakness, numbness and headaches. Psychiatric/Behavioral: Positive for dysphoric mood. The patient is nervous/anxious. Objective PHYSICAL EXAM BP 126/82 Pulse 77 Temp 98.1 ??F (36.7 ??C) (Oral) Resp 16 Ht 5' 2.52 (1.588 m) Wt 63 kg(139 lb) SpO2 99% ? No BMI 25.00 kg/m?? Physical Exam Constitutional: General: She is not in acute distress. Appearance: She is well-developed. She is not diaphoretic. HENT: Head: Normocephalic and atraumatic. Mouth/Throat: Pharynx: No oropharyngeal exudate. Eyes: General: No scleral icterus. Pupils: Pupils are equal, round, and reactive to light. Neck: Musculoskeletal: Normal range of motion and neck supple. Thyroid: No thyromegaly. Cardiovascular: Rate and Rhythm: Normal rate and regular rhythm. Heart sounds: Normal heart sounds. No murmur. Pulmonary: Effort: Pulmonary effort is normal. No respiratory distress. Breath sounds: Normal breath sounds. No wheezing. Abdominal: General: Bowel sounds are normal. There is no distension. Palpations: Abdomen is soft. Tenderness: There is no tenderness. Musculoskeletal: Normal range of motion. General: No tenderness. Lymphadenopathy: Cervical: No cervical adenopathy. Skin: General: Skin is warm and dry. Comments: Cold sore on R nares Neurological: Mental Status: She is alert and oriented to person, place, and time. Psychiatric: Behavior: Behavior normal. Thought Content: Thought content normal. Judgment: Judgment normal. Procedures Assessment ASSESSMENT and PLAN: ICD-10-CM ICD-9-CM 1. Routine general medical examination at a health care facility Z00.00 V70.0 2. Insomnia, unspecified type G47.00 780.52 zolpidem (AMBIEN) 5 mg tablet 3. Benign hypertension I10 401.1 4. Migraine with aura and without status migrainosus, not intractable G43.109 346.00 5. Mild episode of recurrent major depressive disorder F33.0 296.31 escitalopram oxalate (LEXAPRO) 10 mg tablet 6. Cold sore B00.1 054.9 valACYclovir (VALTREX) 1 gram tablet 7. Influenza vaccine needed Z23 V04.81 INFLUENZA VACCINE QUAD SPLIT 6 MOS+ PF IM Health maintenance issues were discussed with the patient. This included colonoscopy (neg in 2013, due 2023), bone density, calcium replacement, exercise, diet, mammograms (neg 08/2018), pap smears (neg by Dr. Lainez 10/2018), self breast exams, immunizations and screening labs. Exercise was discussed with the patient. I emphasized the need to exercise a minimum of 5 days per week for 30 minutes at a time. Moderate cardiac exercise was explained to patient as equivalent to 3-4 miles/hour of walking. Insomnia well controlled on current meds. HTN well controlled on current meds. Migraines well controlled on current meds. Valtrex for cold sore. Patient Education: Reviewed concept of depression/anxiety as biochemical imbalance of neurotransmitters and rationale for treatment. Instructed patient to contact office or on-call physician promptlyshould condition worsen or any new symptoms appear and provided on-call telephone numbers. IF THE PATIENT HAS ANY SUICIDAL OR HOMICIDAL IDEATION, CALL THE OFFICE, DISCUSS WITH A SUPPORT MEMBER OR GO TO THE ER IMMEDIATELY. Patient was agreeable with this plan. I've explained to her that drugs of the SSRI class can have side effects such as weight gain, sexual dysfunction, insomnia, headache, nausea. These medications are generally effective at alleviating symptoms of anxiety and/or depression. Let me know if significant side effects do occur. DLOOM WEAVER documented in this encounter Plan of Treatment Upcoming Encounters Date Type Department Care Team (Late st Contact Info) Description 11/24/2024 9:30 AM CDT Office Visit [facility] Internal Medicine Medical [facility] [address] [facility] [address] [place] [id number] Melani [place] DO [address] [facility] [address] [place] [address] documented as of this encounter Visit Diagnoses Diagnosis Routine general medical examination at a health care facility- Primary Insomnia, unspecified type Benign hypertension Essential hypertension, benign Migraine with aura and without status migrainosus, not intractable Migraine with aura, without mention of intractable migraine without mention of status migrainosus Mild episode of recurrent major depressive disorder Cold sore Herpes simplex without mention of complication Influenza vaccine needed Need for prophylactic vaccination and inoculation against influenza documented in this encounter Care Teams Coordinator Cardiopulmonary Services Relationship Specialty Start Date End Date Melani Franklin DO [address] [facility] [address] [place] [address] PCP - General Internal Medicine 01/02/17 documented as of this encounter
--- OUTSIDE RECORDS SUMMARY | 2024-02-21 16:37 | XMS_ITS | Encounter Summary ---
Author Organization [facility] Address [address] [place] [address] Care Team Providers Care Public Information Officer Name Role Phone Melani Franklin DO Primary Care Provider [phone] Reason for Visit * Reason Onset Date Comments Medication Refill 01/03/2017 Encounter Details Date Type Department Care Team (Late st Contact Info) Description 01/03/2017 Refill [facility] Internal Medicine Medical [facility] [address] [facility] [address] [address] Melani Franklin DO [address] [facility] [address] [place] [address] Social History Tobacco Use Types [...] Miscellaneous Notes * Telephone Encounter - Spencer Avendaño, A - 01/03/2017 11:17 AM CDTFrom: Jody Mason Sent: 01/03/2017 11:02 AM CDT Subject: Medication Renewal Request Jody Mason would like a refill of the following medications: SUMAtriptan (IMITREX) 100 mg tablet [Melani Cifuentes DO] Preferred pharmacy: [facility] [address] [place] [address] [facility] Delivery method: Pickup documented in this encounter Plan of Treatment Upcoming Encounters Date Type Department Care Team (Late st Contact Info) Description 11/24/2024 9:30 AM CDT Office Visit [facility] Internal Medicine Medical [place] [facility] [address] [facility] [address] [address] Melani Franklin DO [address] [facility] [address] [place], [place] [id number] documented as of this encounter Visit Diagnoses Not on filedocumented in this encounter Care Teams Public Information Officer Relationship Specialty Start Date End Date Melani Franklin DO [address] [facility] [address] [place] [address] PCP - General Internal Medicine 01/02/17 documented as of this encounter
--- OUTSIDE RECORDS SUMMARY | 2024-02-21 16:37 | XMS_ITS | Encounter Summary ---
Author Organization [facility] Address [address] [place] [address] Care Team Providers Care Particle Board Supervisor Name Role Phone Melani [place] DO Primary Care Provider [phone] Reason for Visit * Reason Comments Allergies Encounter Details Date Type Department Care Team (Late st Contact Info) Description 10/04/2018 9:40 AM CDT Office Visit [facility] Internal Medicine Medical [place] [facility] [address] [facility] [address] [place] [address] Melani Franklin, [address] [facility] [address] [place] [address] Allergic urticaria (Primary Dx); Encounter for routine adult health examination without abnormal findings Social History Tobacco Use Types Packs/Day Years [...] Sign Reading Time Taken Comments Blood Pressure 120/88 10/04/2018 9:35 AM CDT Pulse 81 10/04/2018 9:35 AM CDT Temperature 36.8 ??C (98.3 ??F) 10/04/2018 9:35 AM CD T Respiratory Rate 18 10/04/2018 9:35 AM CDT Oxygen Saturation 100% 10/04/2018 9:35 AM CDT Inhaled Oxygen Concentration - - Weight 63 kg (139 lb) 10/04/2018 9:35 AM CDT Height 158.8 cm (5' 2.5 ) 10/04/2018 9:35 AM CDT Body Mass Index 25.02 10/04/2018 9:35 AM CDT documented in this encounter Progress Notes * Melani Franklin, - 10/04/2018 9:53 AM CDT Images from the original note were not included. HISTORY OF PRESENT ILLNESS Jody Mason, a 48 y.o. female presents with a Chief Complaint of Allergies Subjective HPI Rash since May. Itchy, red, extremely itchy at nighttime to the point where she's needing ambien to sleep. Located on her abdomen, arms, mild on the legs. Saw her sharepoint application developer who gave her triamcinolone cream, didn't help. Stopped taking her supplements 2 mo ago to see if any of these were causing it- no change. No other medication or topical changes. Has an appt for frog shaker in 3 weeks but can't wait that long to get something done. Has to be off of antihistamines because of this appointment so she's very concerned about how she's going to make it until then. Patient Active Problem List Diagnosis Date Noted ??? Benign hypertension 01/02/2017 ??? Postcholecystectomy diarrhea 01/02/2017 ??? Migraine with aura and without status migrainosus, not intractable 01/02/2017 ??? Insomnia 01/02/2017 Current Outpatient Medications: ??? triamcinolone acetonide (KENALOG) 0.1 % Cream, APPLY TO RASH BID DIRECTED. DO NOT USE ON FACE OR GENITALS, Disp: , Rfl: 2 ??? lisinopril-hydroCHLOROthiazide (ZESTORETIC) 10-12.5 mg tablet, TAKE [...] Insomnia., Disp: 30 Tablet, Rfl: 0 ??? cholestyramine, with sugar, (QUESTRAN) 4 gram Powder in Packet, MIX AND DRINK 1 PACKET BY MOUTHDAILY, Disp: 90 Package, Rfl: 3 ??? naproxen (NAPROSYN) 500 mg tablet, TAKE 1 TABLET BY MOUTH TWICE DAILY, Disp: 180 Tablet, Rfl: 0 ??? NORTREL , 28, 1-35 mg-mcg tablet, Take 1 Tablet by mouth daily., Disp: , Rfl: 3 REVIEW OF SYSTEMS Review of Systems Objective PHYSICAL EXAM BP 120/88 Pulse 81 Temp 98.3 ??F (36.8 ??C) (Oral) Resp 18 Ht 5' 2.5 (1.588 m) Wt 63 kg (139 lb) SpO2 100% ? No BMI 25.02 kg/m?? Physical Exam Constitutional: She is oriented to person, place, and time. She appears well- developed and well-nourished. No distress. Neurological: She is alert and oriented to person, place, and time. Skin: Skin is warm and dry. Rash noted. Rash is urticarial. She is not diaphoretic. Psychiatric: She has a normal mood and affect. Her behavior is normal. Judgment and thought contentnormal. Procedures Assessment ASSESSMENT and PLAN: ICD-10-CM ICD-9-CM 1. Allergic urticaria L50.0 708.0 Allergic urticaria with unknown etiology. I agree that she needs to see frog shaker but her symptoms are extremely disturbing to her in the mean time. We decided she'd continue antihistamines (atarax rx'ed), start prednisone taper, and change her appointment to next month if needed by that time. She totally agrees. documented in this encounter Miscellaneous Notes * Addendum Note - Jeane Ruvalcaba - 10/04/2018 1:45 PM CDTAddended by: JEANE RUVALCABA on: 10/04/2018 01:45 PM Modules accepted: Orders documented in this encounter Plan of Treatment Upcoming Encounters Date Type Department Care Team (Late st Contact Info) Description 11/24/2024 9:30 AM CDT Office Visit [facility] Internal Medicine Medical [place] [facility] [address] [facility] [address] [address] Melani [place], DO [address] [facility] [address] [place] [address] documented as of this encounter Results * CBC WITH DIFFERENTIAL (01/09/2019 8:31 AM SAMPLE COLOR MAKER) WBC 4.5 4.0 - 9.8 K/uL 01/09/2019 9:13 AM [facility] - [facility] RBC 3.96 3.90 - 4.90 M/uL 01/09/2019 9:13 AM [facility] - . [facility] HEMOGLOBIN 12.8 11.8 - 14.8 g/dL 01/09/2019 9:13 AM [facility] - . [facility] HEMATOCRIT 38.4 35.5 - 44.0 % 01/09/2019 9:13 AM [facility] - . [facility] MCV 97.0 82.0 - 99.0 fL 01/09/2019 9:13 AM [facility] - . [facility] MCH 32.3 27.2 - 32.6 pg 01/09/2019 9:13 AM [facility] - . [facility] MCHC 33.3 31.5 - 35.5 g/dL 01/09/2019 9:13 AM [facility] - . [facility] RDW 12.0 11.5 - 14.5 % 01/09/2019 9:13 AM [facility] - . [facility] RDW-STDEV 42.9 37.1 - 48.7 fL 01/09/2019 9:13 AM [facility] - . [facility] PLATELETS 181 140 - 350 K/uL 01/09/2019 9:13 AM [facility] - [facility] MPV 12.1 9.3 - 12.4 fL 01/09/2019 9:13 AM [facility] [facility]OR[facility] - [facility] NEUTROPHILS 61 % 01/09/2019 9:13 AM [facility] - [facility] LYMPHOCYTES 29 % 01/09/2019 9:13 AM [facility] - [facility] MONOCYTES 8 % 01/09/2019 9:13 AM [facility] - [facility] EOSINOPHILS 1 % 01/09/2019 9:13 AM [facility] - [facility] BASOPHILS 0 % 01/09/2019 9:13 AM [facility] [employer] [facility] - [facility] IMMATURE GRANULOCYTES 0 % 01/09/2019 9:13 AM [facility] [employer] [facility] - [facility] NEUTROPHIL ABSOLUTE 2.76 1.90 - 7.00 K/uL 01/09/2019 9:13 AM [facility] SERVICES - [facility] LYMPHOCYTE ABSOLUTE 1.32 0.70 - 4.50 K/uL 01/09/2019 9:13 AM [facility] - [facility] MONOCYTE ABSOLUTE 0.36 0.10 - 1.30 K/uL 01/09/2019 9:13 AM [facility] [employer] [facility] - [facility] EOSINOPHIL ABSOLUTE 0.06 0.00 - 0.70 K/uL 01/09/2019 9:13 AM [facility] [employer] [facility] - [facility] BASOPHILS ABSOLUTE 0.01 0.00 - 0.20 K/uL 01/09/2019 9:13 AM [facility] [employer] LABORATORY [facility] - [facility] IMMATURE GRANULOCYTES ABSOLUTE 0.01 0.00 - 0.03 K/uL 01/09/2019 9:13 AM [facility] [employer] [facility] - [facility] Blood Venipuncture / Unknown 01/09/2019 8:31 AM SAMPLE COLOR MAKER 01/09/2019 9:02 AM SAMPLE COLOR MAKER Melani [place] DO HEMATOLOGY ORDERABLE S [facility] SERVICES [facility] CLIA# [id number] 5 SRochelle [facility] [place]AR[place]AVIN [place] [address] * COMPREHENSIVE METABOLIC PANEL (01/09/2019 8:31 AM SAMPLE COLOR MAKER) SODIUM 138 136 - 145 mmol/L 01/09/2019 9:54 AM [facility] - [facility] POTASSIUM 4.1 3.5 - 5.0 mmol/L 01/09/2019 9:54 AM [facility] - [facility] CHLORIDE 101 98 - 107 mmol/L 01/09/2019 9:54 AM [facility] - [facility] CO2 28 22 - 29 mmol/L 01/09/2019 9:54 AM [facility] - [facility] CALCIUM 9.0 8.6 - 10.2 mg/dL 01/09/2019 9:54 AM [facility] - [facility] BUN 15 6 - 20 mg/dL 01/09/2019 9:54 AM [facility] - [facility] CREATININE 0.71 0.51 - 0.95 mg/dL 01/09/2019 9:54 AM [facility] - [facility] GLUCOSE 94 74 - 99 mg/dL 01/09/2019 9:54 AM [facility] - [facility] TOTAL PROTEIN 7.2 6.7 - 8.6 g/dL 01/09/2019 9:54 AM [employer] - [facility] ALBUMIN 4.7 3.5 - 5.2 g/dL 01/09/2019 9:54 AM [facility] - [facility] BILIRUBIN TOTAL 0.5 0.3 - 1.2 mg/dL 01/09/2019 9:54 AM [facility] - [facility] ALKALINE PHOSPHATASE 45 35 - 104 U/L 01/09/2019 9:54 AM [facility] - [facility] AST 29 <33 U/L 01/09/2019 9:54 AM [facility] - [facility] ALT 26 <34 U/L 01/09/2019 9:54 AM [facility] - [facility] GFR >60 >=60 mL/min/1.7 3 sq meter 01/09/2019 9:54 AM [facility] - [facility] Comment: eGFR has [...] mL/min/1.7 3 sq meter 01/09/2019 9:54 AM [facility] [employer] [facility] ANION GAP 9 8 - 16 mmol/L 01/09/2019 9:54 AM [facility] [employer] [facility] Blood Venipuncture / Unknown 01/09/2019 8:31 AM SAMPLE COLOR MAKER 01/09/2019 9:02 AM SAMPLE COLOR MAKER Narrative [facility] [employer] [facility] - 01/09/2019 9:54 AM SAMPLE COLOR MAKER Samples containing indocyanine green cause interferences on Total and/or Direct Bilirubin and must not be measured. Melani [place] DO CHEMISTRY ORDERABLES [facility] [employer] [facility]# [id number] [address] [facility] [place] [address] * (ABNORMAL) LIPID PANEL (01/09/2019 8:31 AM SAMPLE COLOR MAKER) CHOLESTEROL 217(H) <200 mg/dL 01/09/2019 9:54 AM [facility] [employer] [facility] TRIGLYCERIDE 226(H) <150 mg/dL 01/09/2019 9:54 AM [facility] [employer] [facility] HDL 49 40 - 59 mg/dL 01/09/2019 9:54 AM [facility] [employer] [facility] LDL CALCULATED 123(H) <100 mg/dL 01/09/2019 9:54 AM [facility] [employer] [facility] NON-HDL CHOLESTEROL 168(H) <130 mg/dL 01/09/2019 9:54 AM [facility] [employer] [facility] Blood Venipuncture / Unknown 01/09/2019 8:31 AM SAMPLE COLOR MAKER 01/09/2019 9:02 AM SAMPLE COLOR MAKER Narrative [facility] [employer] [facility] - 01/09/2019 9:54 AM SAMPLE COLOR MAKER TOTAL CHOLESTEROL ??mg/dL ??Desirable <200 ??Borderline high [...] [place] DO CHEMISTRY ORDERABLES Performing Organization Address City/[facility] Co de Phone Number [facility]# [id number] [address] [facility] [place] [id number] * TSH REFLEXIVE (01/09/2019 8:31 AM SAMPLE COLOR MAKER) TSH 1.40 0.27 - 4.20 uIU/mL 01/09/2019 9:59 AM SAMPLE COLOR MAKER [facility] Blood Venipuncture / Unknown 01/09/2019 8:31 AM SAMPLE COLOR MAKER 01/09/2019 9:02 AM SAMPLE COLOR MAKER Melani [place] DO CHEMISTRY ORDERABLES Performing Organization Address [facility] Co de Phone Number [facility]# [id number] [address] [facility] [place], [place] [id number] documented in this encounter Visit Diagnoses Diagnosis Allergic urticaria- Primary Encounter for routine adult health examination without abnormal findings documented in this encounter Care Teams Particle Board Supervisor Relationship Specialty Start Date End Date Melani [place] DO [address] [facility] [address] [place] [address] PCP - General Internal Medicine 01/02/17 documented as of this encounter
--- OUTSIDE RECORDS SUMMARY | 2024-02-21 16:37 | XMS_ITS | Encounter Summary ---
Author Organization [facility] Address [address] [place] [address] Care Team Providers Care Intelligence Intern Name Role Phone Melani [place] DO Primary Care Provider [phone] Reason for Visit * Reason Comments Medication Refill Encounter Details Date Type Department Care Team (Late Contact Info) Description 10/11/2017 Refill [facility] Internal Medicine [facility] [address] [facility] [address] [place] [address] Jay Page MD [address] [facility] [address] [facility] [place] [address] Social History Tobacco Use Types [...] Office Visit [facility] Internal Medicine [facility] [address] [facility] [address] [address] Melani [place] DO [address] [facility] [address] [place] [address] documented as of this encounter Visit Diagnoses Not on filedocumented in this encounter Care Teams Intelligence Intern Relationship Specialty Start Date End Date Melani [place] DO [address] [place] [address] PCP - General Internal Medicine 01/02/17 documented as of this encounter
--- OUTSIDE RECORDS SUMMARY | 2024-02-21 16:37 | XMS_ITS | Encounter Summary ---
Author Organization [facility] Address [address] [place] [address] Care Team Providers Care Outdoor Adventure Guides Name Role Phone Melani Franklin DO Primary Care Provider [phone] Reason for Visit * Reason Comments Medication Refill Encounter Details Date Type Department Care Team (Late st Contact Info) Description 03/03/2019 Refill [facility] Internal Medicine [facility] [address] [place] [address] Melani Franklin, DO [address] [place] [id number] Mild episode of recurrent major depressive [...] Office Visit [facility] Internal Medicine [facility] [address] [place] [address] Melani Franklin DO [address] [address] documented as of this encounter Visit Diagnoses Diagnosis Mild episode of recurrent major depressive disorder documented in this encounter Care Teams Outdoor Adventure Guides Relationship Specialty Start Date End Date Melani Franklin DO [address] [place] [id number] PCP - General Internal Medicine 01/02/17 documented as of this encounter
--- OUTSIDE RECORDS SUMMARY | 2024-02-21 16:38 | XMS_ITS | Continuity of Care Document ---
Author Organization [facility] Address [address] [place] [address] Phone Care Team Providers Care Earth Auger Operator Name Role Phone Espino OD, Dirk Unavailable Unavailable Procedures Procedure Date Office/outpatient Visit, Est Eye Exam Established Pt Contact Lens, Gas Permeable, Spherical A Medical Tax Contact Lens Check Contact Lens Check Eye Exam & Treatment Refraction CL Replacement - Vistakon Disp W/BW Soft Archiver's No Charge Contact Lens Check CL Replacement - Vistakon Disp W/BW Soft Archiver's Eye Exam, New Patient Refraction Advance Directives Directive Yes / No Effective Date File Name No Information Encounters Encounter Description Practice Location Reason(s) For Visit Diagnoses Date Provider Providers Copied on Encounter Office/outpat ient Visit, Est Merged with [facility], [address], [place], [place], [id number], [place] tel:[phone] [facility] No Information 0-201 0 Espino OD Dirk. [address] , [address], [place], [address], [place]. tel:[phone] Merged with [facility], [address], [place], [place], [id number], [place] tel:[phone] [facility] No Information Sep-0 3-201 0 Espino OD Dirk. [address] , [address], [place], [place], [facility], . tel:[phone] [facility], [address], [place], [place], [id number], [place] tel:[phone] [facility] No Information Aug-1 9-201 0 Espino OD Dirk. [address] , [address], [place], [place], [facility], [place]. tel:[phone] [facility], [address] [place] [address] [address], [place], [place], [id number], tel:[phone] [facility] No Information Aug-1 2-201 0 Espino OD Dirk. [address] , [address], [place], [place], [facility], [place]. tel:[phone] [facility], [address] [place] [address] [address], [place], [place], [id number], [place] tel:[phone] [facility] No Information Aug-0 5-201 0 Espino OD Dirk. [address] , [address], [place], [place], [facility], [place]. tel:[phone] [facility], [address] [place] [address] [address], [place], [place], [id number], [place] tel:[phone] [facility] No Information Enrico-2 9-201 0 Espino OD Dirk. [address] , [address], [place], [place], [facility], [place]. tel:[phone] [facility], [address], [place], [place], [id number], [place] tel:[phone] [facility] No Information Papo-0 6-200 8 Espino OD Dirk. [address] [facility] [address] , [address], [place], [address], [place]. tel:[phone] [facility], [address], [place], [place], [id number], tel:[phone] [facility] No Information May-3 0-200 8 Espino OD Dirk. [address] [facility] , [address], [place], [place], [facility], [place]. tel:[phone] Merged with [facility], [address], [place], [place], [id number], [place] tel:[phone] [facility] No Information July-2 3-200 8 Espino OD Dirk. [address] [facility] , [address], [place], [address], [place]. tel:[phone] Family History Family Member Type Diagnosis Age At Onset No Information Payers Payer name Insurance type Covered democrat ID Authoriza tion(s) No Information Social History Type Description Quantity Date Captured Comments Sex Female Smoking Status No Information Chief Complaint And Reason For Visit No Information Reason For Referral Reason For Referral No Information History Of Present Illness Encounter Date Complaint History Of Prese nt Illness No Information Functional Status Date Functional Assessmen t No Information Instructions Date Instruction Additional Infor mation No Information Assessments Type Assessment Date No Information Patient Care Teams Name Effective Dates (start - stop) Status Members No Information
--- OUTSIDE RECORDS SUMMARY | 2024-02-21 16:38 | XMS_ITS | Encounter Summary ---
Author Organization [facility] Address [address] [place] [address] Care Team Providers Care Wellness Assistant Name Role Phone Melani Franklin DO Primary Care Provider [phone] Reason for Visit * Reason Comments Establish Care Encounter Details Date Type Department Care Team (Late st Contact Info) Description 01/02/2017 10:20 AM CDT Office Visit [facility] Internal Medicine Medical [facility] [address] [address] Melani Franklin, [address] [place] [address] Routine general medical examination at a health care facility (Primary Dx); Benign hypertension; Postcholecystectomy diarrhea; Migraine with aura and without status migrainosus, not intractable; Insomnia, unspecified type; Needs flu shot Social History Tobacco Use Types Packs/Day Years [...] Sign Reading Time Taken Comments Blood Pressure 116/78 01/02/2017 10:20 AM CDT Pulse 74 01/02/2017 10:20 AM CDT Temperature 36.7 ??C (98 ??F) 01/02/2017 10:20 AM CDT Respiratory Rate 16 01/02/2017 10:20 AM CDT Oxygen Saturation 100% 01/02/2017 10:20 AM CDT Inhaled Oxygen Concentration - - Weight 59 kg (130 lb) 01/02/2017 10:20 AM CDT Height 157.5 cm (5' 2 ) 01/02/2017 10:20 AM CDT Body Mass Index 23.78 01/02/2017 10:20 AM CDT documented in this encounter Progress Notes * Mleani Cifuentes, - 01/02/2017 10:26 AM CDT HISTORY OF PRESENT ILLNESS Jody Mason, a 46 y.o. female presents with a Chief Complaint of Establish Care Subjective IBIS Kristina presents to establish care. The medications, allergies, past medical history, family history, and social history are all reviewed and updated at this visit Migraines- 1-2x monthly. Gets visual and olfactory auras, posterior headache. Sometimes imitrex doesn't work very quickly. HTN- Patient is compliant with current antihypertensive medications. Denies BRANNON, syncope, focal neuro deficits. Insomnia- severe. Wants to get off ambien. Postchole diarrhea- uses questran and hyoscyamine for this. Perioral dermatitis- on doxy. Follows with Dr. Bradford. Patient Active Problem List Diagnosis Date Noted ??? Benign hypertension 01/02/2017 ??? Postcholecystectomy diarrhea 01/02/2017 ??? Migraine with aura and without status migrainosus, not intractable 01/02/2017 ??? Insomnia 01/02/2017 Current Outpatient Prescriptions: ??? lisinopril-hydroCHLOROthiazide (ZESTORETIC) 10-12.5 mg tablet, Take 1 Tablet by mouth daily., Disp: , Rfl: 2 ??? SUMAtriptan (IMITREX) 100 mg tablet, Take 1 Tablet by mouth 1 time daily as needed., Disp: , Rfl: 4 ??? zolpidem (AMBIEN CR) 12.5 mg Controlled Release tablet, Take 1 Tablet by mouth nightly as needed., Disp: , Rfl: 2 ??? cholestyramine, with sugar, (QUESTRAN) 4 gram Powder in Packet, Take 1 Packet by mouth 1 time daily as needed., Disp: , Rfl: 2 ??? NORTREL 1/35, 28, 1-35 mg-mcg tablet, Take 1 Tablet by mouth daily., Disp: , Rfl: 3 ??? doxycycline hyclate (VIBRAMYCIN) 100 mg capsule, Take 1 Capsule by mouth 1 time daily as needed., Disp: , Rfl: 1 ??? hyoscyamine 0.125 mg Tablet, Sublingual, Take 1 Tablet by mouth 1 time daily as needed., Disp: , Rfl: 0 REVIEW OF SYSTEMS Review of [...] numbness and headaches. Objective PHYSICAL EXAM BP 116/78 Pulse 74 Temp 98 ??F (36.7 ??C) (Oral) Resp 16 Ht 5' 2 (1.575 m) Wt 59 kg (130lb) LMP 11/02/2016 SpO2 100% BMI 23.78 kg/m?? Physical Exam Constitutional: She is oriented to person, place, and time. She appears well- developed and well-nourished. No distress. HENT: Head: Normocephalic and atraumatic. Mouth/Throat: No oropharyngeal exudate. Eyes: EOM are normal. Pupils are equal, round, and reactive to light. No scleral icterus. Neck: Normal range of [...] behavior is normal. Judgment and thought contentnormal. Assessment ASSESSMENT and PLAN: ICD-10-CM ICD-9-CM 1. Routine general medical examination at a health care facility Z00.00 V70.0 COMPREHENSIVE METABOLIC PANEL CBC WITH DIFFERENTIAL LIPID PANEL TSH REFLEXIVE 2. Benign hypertension I10 401.1 3. Postcholecystectomy diarrhea R19.7 564.4 Z90.49 4. Migraine with aura and without status migrainosus, not intractable G43.109 346.00 amitriptyline (ELAVIL) 10 mg tablet DISCONTINUED: SUMAtriptan (IMITREX) 20 mg/actuation [place], Non-Aerosol 5. Insomnia, unspecified type G47.00 780.52 amitriptyline (ELAVIL) 10 mg tablet 6. Needs flu shot Z23 V04.81 INFLUENZA VACCINE QUAD 4+ YRS C.POOJA PF IM Health maintenance issues were discussed with the patient. 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 Exercise was discussed with the patient. I emphasized the need to exercise a minimum of 5 days per week for 30 minutes at a time. Moderate cardiac exercise was explained to patient as equivalent to 3-4 miles/hour of walking. Reji redien for her insomnia and try TCA instead as this may benefit her migraines and chronic diarrhea as well. HTN well controlled on current meds. See if insurance covers imitrex nasal spray for migraines, if not, cont po imitrex. documented in this encounter Miscellaneous Notes * Patient Instructions - Melani Cifuentes DO - 01/02/2017 11:01 AM CDT [employer] Well Visit, Ages 18 to 50: Care Instructions Your Care Instructions Physical exams can help you stay healthy. Your doctor has checked your overall health and may have suggested ways to take good care of yourself. He or she also may have recommended tests. At home, you can help prevent illness with healthy eating, regular exercise, and other steps. Follow-up care is a lainez part of your treatment and safety. Be sure to make and go to all appointments, and call your doctor if you are having problems. It's also a good idea to know your test resultsand keep a list of the medicines you take. How can you care for yourself at home? ?? Reach and stay at a healthy weight. This will lower your risk for many problems, such as obesity, diabetes, heart disease, and high blood pressure. ?? Get at least 30 minutes of physical activity on most days of the week. Walking is a good choice.You also may want to do other activities, such as running, swimming, cycling, or playing tennis or team sports. Discuss any changes in your exercise program with your doctor. ?? Do not smoke or allow others to smoke around you. If you need help quitting, talk to your doctorabout stop-smoking programs and medicines. These can increase your chances of quitting for good. ?? Talk to your doctor about whether you have any risk factors for sexually transmitted infections (STIs). Having one sex partner (who does not have STIs and does not have sex with anyone else) is a good way to avoid these infections. ?? Use control if you do not want to have children at this time. Talk with your doctor about the choices available and what might be best for you. ?? Protect your skin from too much sun. When you're outdoors from 10 a.m. to 4 p.m., stay in the shade or cover up with clothing and a hat with a wide brim. Wear sunglasses that block UV rays. Even when it's cloudy, put broad-spectrum sunscreen (SPF 30 or higher) on any exposed skin. ?? See a dentist one or two times a year for checkups and to have your teeth cleaned. ?? Wear a seat belt in the car. ?? Drink alcohol in moderation, if at all. That means no more than 2 drinks a day for men and 1 drink a day for women. Follow your doctor's advice about when to have certain tests. These tests can spot problems early. For everyone ?? Cholesterol. Have the fat (cholesterol) in your blood tested after age 20. Your doctor will tellyou how often to have this done based on your age, family history, or other things that can increase your risk for heart disease. ?? Blood pressure. Have your blood pressure checked during a routine doctor visit. Your doctor willtell you how often to check your blood pressure based on your age, your blood pressure results, andother factors. ?? Vision. Talk with your doctor about how often to have a glaucoma test. ?? Diabetes. Ask your doctor whether you should have tests for diabetes. ?? Colon cancer. Have a test for colon cancer at age 50. You may have one of several tests. If you are younger than 50, you may need a test earlier if you have any risk factors. Risk factors include whether you already had a precancerous polyp removed from your colon or whether your parent, brother, sister, or child has had colon cancer. For women ?? Breast exam and mammogram. Talk to your doctor about when you should have a clinical breast examand a mammogram. Medical experts differ on whether and how often women under 50 should have these tests. Your doctor can help you decide what is right for you. ?? Pap test and pelvic exam. Begin Pap tests at age 21. A Pap test is the best way to find cervicalcancer. The test often is part of a pelvic exam. Ask how often to have this test. ?? Tests for sexually transmitted infections (STIs). Ask whether you should have tests for STIs. You may be at risk if you have sex with more than one person, especially if your partners do not wear condoms. For men ?? Tests for sexually transmitted infections (STIs). Ask whether you should have tests for STIs. You may be at risk if you have sex with more than one person, especially if you do not wear a condom. ?? Testicular cancer exam. Ask your doctor whether you should check your testicles regularly. ?? Prostate exam. Talk to your doctor about whether you should have a blood test (called a PSA test) for prostate cancer. Experts differ on whether and when men should have this test. Some experts suggest it if you are older than 45 and are -Tajik or have a father or brother who got prostate cancer when he was younger than 65. When should you call for help? Watch closely for changes in your health, and be sure to contact your doctor if you have any problems or symptoms that concern you. Where can you learn more? Go to https://www.healthwise.net/patientEd Enter P072 in the search box to learn more about Well Visit, Ages 18 to 50: Care Instructions. Current as of: September 21, 2015 Content Version: 11.3 ?? [id number] [employer]. Care instructions adapted under license by your healthcare professional. If you have questions about a medical condition or this instruction, always ask your healthcare professional. These instructions may not represent the values of this healthcare organization. [employer] disclaims any warranty or liability for your use of this information. documented in this encounter Plan of Treatment Upcoming Encounters Date Type Department Care Team (Late st Contact Info) Description 11/24/2024 9:30 AM CDT Office Visit [facility] Internal Medicine Medical [place] [facility] [address] [address] Melani Franklin DO [address] [place] [address] documented as of this encounter Results * TSH REFLEXIVE (01/16/2017 8:39 AM TRANSFER MAN) TSH 2.10 0.27 - 4.20 uIU/mL 01/16/2017 9:54 AM TRANSFER MAN [facility] Blood Venipuncture / Unknown 01/16/2017 8:39 AM TRANSFER MAN 01/16/2017 8:58 AM TRANSFER MAN Melani Franklin DO CHEMISTRY ORDERABLES [facility] CLIA# [id number] [address] [place] [address] * (ABNORMAL) LIPID PANEL (01/16/2017 8:39 AM TRANSFER MAN) CHOLESTEROL 192 <200 mg/dL 01/16/2017 9:34 AM TRANSFER MAN [facility] TRIGLYCERIDE 180(H) <150 mg/dL 01/16/2017 9:34 AM TRANSFER MAN [facility] HDL 45 40 - 59 mg/dL 01/16/2017 9:34 AM [facility] LDL CALCULATED 111(H) <100 mg/dL 01/16/2017 9:34 AM [facility] [place] NON-HDL CHOLESTEROL 147(H) <130 mg/dL 01/16/2017 9:34 AM [facility] [place] Blood Venipuncture / Unknown 01/16/2017 8:39 AM TRANSFER MAN 01/16/2017 8:58 AM TRANSFER MAN [facility] [employer] [facility] - 01/16/2017 9:34 AM TRANSFER MAN TOTAL CHOLESTEROL ??mg/dL ??Desirable <200 ??Borderline high [...] Panels (NCEP/AMA) Melani Franklin DO CHEMISTRY ORDERABLES [facility]# [id number] [address] [facility] [place] [address] * (ABNORMAL) CBC WITH DIFFERENTIAL (01/16/2017 8:39 AM TRANSFER MAN) Pathologist [facility] WBC 5.4 4.0 - 9.8 K/uL 01/16/2017 9:31 AM [facility] RBC 3.96 3.90 - 4.90 M/uL 01/16/2017 9:31 AM [facility] HEMOGLOBIN 12.9 11.8 - 14.8 g/dL 01/16/2017 9:31 AM TRANSFER MAN [facility] [place] HEMATOCRIT 38.1 35.5 - 44.0 % 01/16/2017 9:31 AM [facility] [employer] [facility] [place] MCV 96.2 82.0 - 99.0 fL 01/16/2017 9:31 AM [facility] MCH 32.6 27.2 - 32.6 pg 01/16/2017 9:31 AM [employer] [facility] MCHC 33.9 31.5 - 35.5 g/dL 01/16/2017 9:31 AM [facility] RDW 12.6 11.5 - 14.5 % 01/16/2017 9:31 AM [facility] RDW-STDEV 44.7 37.1 - 48.7 fL 01/16/2017 9:31 AM [facility] PLATELETS 198 140 - 350 K/uL 01/16/2017 9:31 AM [facility] MPV 13.1(H) 9.3 - 12.4 fL 01/16/2017 9:31 AM [facility] NEUTROPHILS 57 % 01/16/2017 9:31 AM [employer] [facility] LYMPHOCYTES 34 % 01/16/2017 9:31 AM [employer] [facility] MONOCYTES 6 % 01/16/2017 9:31 AM [facility] EOSINOPHILS 2 % 01/16/2017 9:31 AM [facility] [employer] [facility] BASOPHILS 0 % 01/16/2017 9:31 AM [employer] [facility] IMMATURE GRANULOCYTES 0 % 01/16/2017 9:31 AM [employer] [facility] NEUTROPHIL ABSOLUTE 3.08 1.90 - 7.00 K/uL 01/16/2017 9:31 AM [employer] [facility] LYMPHOCYTE ABSOLUTE 1.85 0.70 - 4.50 K/uL 01/16/2017 9:31 AM [employer] [facility] MONOCYTE ABSOLUTE 0.34 0.10 - 1.30 K/uL 01/16/2017 9:31 AM [employer] [facility] EOSINOPHIL ABSOLUTE 0.08 0.00 - 0.70 K/uL 01/16/2017 9:31 AM [employer] [facility] BASOPHILS ABSOLUTE 0.02 0.00 - 0.20 K/uL 01/16/2017 9:31 AM [facility] [employer] [facility] [place] IMMATURE GRANULOCYTES ABSOLUTE 0.01 0.00 - 0.03 K/uL 01/16/2017 9:31 AM [facility] [employer] [facility] Blood Venipuncture / Unknown 01/16/2017 8:39 AM TRANSFER MAN 01/16/2017 8:58 AM TRANSFER MAN Melani Franklin DO HEMATOLOGY ORDERABLE S [employer] [facility] CLIA# [id number] [address] [facility] [place] [address] * COMPREHENSIVE METABOLIC PANEL (01/16/2017 8:39 AM TRANSFER MAN) SODIUM 136 136 - 145 mmol/L 01/16/2017 9:34 AM [facility] [employer] [place] POTASSIUM 3.9 3.5 - 5.0 mmol/L 01/16/2017 9:34 AM [facility] [employer] [facility] CHLORIDE 99 98 - 107 mmol/L 01/16/2017 9:34 AM [facility] [employer] [facility] CO2 27 22 - 29 mmol/L 01/16/2017 9:34 AM [facility] [employer] [facility] CALCIUM 8.9 8.6 - 10.2 mg/dL 01/16/2017 9:34 AM [facility] [employer] [facility] BUN 16 6 - 20 mg/dL 01/16/2017 9:34 AM [facility] [employer] [facility] CREATININE 0.70 0.51 - 0.95 mg/dL 01/16/2017 9:34 AM [employer] [facility] GLUCOSE 94 74 - 99 mg/dL 01/16/2017 9:34 AM [facility] [employer] [facility] TOTAL PROTEIN 7.0 6.7 - 8.6 g/dL 01/16/2017 9:34 AM [facility] [employer] [facility] ALBUMIN 4.4 3.5 - 5.2 g/dL 01/16/2017 9:34 AM TRANSFER MAN [facility] BILIRUBIN TOTAL 0.7 0.3 - 1.2 mg/dL 01/16/2017 9:34 AM [facility] ALKALINE PHOSPHATASE 46 35 - 104 U/L 01/16/2017 9:34 AM [facility] AST 27 <33 U/L 01/16/2017 9:34 AM [facility] ALT 29 <34 U/L 01/16/2017 9:34 AM [facility] GFR >60 >=60 mL/min/1.7 3 sq meter 01/16/2017 9:34 AM [facility] Comment: eGFR has not been validated [...] mL/min/1.7 3 sq meter 01/16/2017 9:34 AM [facility] ANION GAP 10 8 - 16 mmol/L 01/16/2017 9:34 AM [facility] Blood Venipuncture / Unknown 01/16/2017 8:39 AM TRANSFER MAN 01/16/2017 8:58 AM [facility] - 01/16/2017 9:34 AM [facility] Samples containing indocyanine green cause interferences on Total and/or Direct Bilirubin and must not be measured. Melani Franklin DO CHEMISTRY ORDERABLES [facility]# [id number] [address] [facility] [place] [address] documented in this encounter Visit Diagnoses Diagnosis Routine general medical examination at a health care facility- Primary Benign hypertension Essential hypertension, benign Postcholecystectomy diarrhea Other postoperative functional disorders Migraine with aura and without status migrainosus, not intractable Migraine with aura, without mention of intractable migraine without mention of status migrainosus Insomnia, unspecified type Needs flu shot Need for prophylactic vaccination and inoculation against influenza documented in this encounter Care Teams Wellness Assistant Relationship Specialty Start Date End Date Melani Franklin DO [address] [place] [address] PCP - General Internal Medicine 01/02/17 documented as of this encounter
--- OUTSIDE RECORDS SUMMARY | 2024-02-21 16:38 | XMS_ITS | Continuity of Care Document ---
Author Organization [facility] Address [address] [place] [phone] Phone Care Team Providers Care Comic Book Writer Name Role Phone Karena WILLSON, Domenico Unavailable Unavailable Allergies, Adverse Reactions, Alerts Substance Reaction Status Criticality morphine Headache Active No Information Medications Medication Instructions Dosage Effective Dates (start - stop) Status Comments MONTELUKAST 10MG TABLETS TAKE 1 TABLET BY MOUTH EVERY DAY IN THE EVENING - Active Procedures Procedure Date Est (Level 3) OFFICE/OUTPATIENT VISIT No Consult (Level 4) OFFICE CONSULTATION Au Advance Directives Directive Yes / No Effective Date File Name No Information Encounters Encounter Description Practice Location Reason(s) For Visit Diagnoses Date Provider Providers Copied on Encounter Est (Level 3) OFFICE/OUTPAT IENT VISIT [facility], [address] [place] [address], [id number], [place] tel:[phone] [facility] [place] complaint) Body mass index (BMI) 28.0-28.9, adultIdiopath ic urticaria 1 Karena Acuña. [address] [place] [address], [id number] , [place]. tel:[phone] Referring Provider: Santana Gorman, [address] , [place], [address]. tel:[phone] [facility], [address] [place] [address], [id number], [place] tel:[phone] [facility] No Information 0 Karena Acuña. [address] [place] [address], [address], [place], [place], [id number] , [place]. tel:[phone] Referring Provider: [address], [place], [address]. tel:[phone] Consult (Level 4) OFFICE CONSULTATION [facility], [address] [place] [address], [place], [place], [id number], tel:[phone] [facility] allergy symptoms (chief complaint) Other allergic rhinitisUrtic aria 9 Karena Acuña. [address] [facility], [address], [place], [place], [id number] , [place]. tel:[phone] Referring Provider: [address], [place], [address]. tel:[phone] Family History Family Member Type Diagnosis Age At Onset Problem (finding) No family hist ory of Systemic lupus erythematosus Problem (finding) No family history of Hi ves Problem (finding) No family history of Th yroid disorder Problem (finding) No family hist ory of Rheumatoid arthritis Problem (finding) No family hist ory of Hereditary angioedema Son Problem (finding) osteoarthritis Son Problem (finding) Allergic rhinitis Problem (finding) No family history of im munodeficiency Payers Payer name Insurance type Covered alliance party ID Authoriza tion(s) [facility] Choice Plus CI [id number] Social History Type Description Quantity Date Captured Comments Alcohol Use Details Unknown Caffeine Use Details Unknown Tobacco Use Status Current non-smoker 21 Smoking Status Never smoker Allergi es: morphine- migraines (intolerance)PMH: allergic rhinitis, contact dermatitis, HTNFH: son- allergic rhinitis, osteoarthritis; No urticaria, angioedema, RA, SLE, thyroid disease, or immunodeficiencySH: no tobacco use; No ETS exposure; 1 parro Sex Female Vital Signs Date / Time: Height Weight BMI Pulse Rate Blood Pressure Temperature Respiratory Rate Body Surface Area Head Circumference Head Circ. Percentile Wt./[place]. Percentile BMI percentile Pulse Ox Inhaled Ox 3:52 PM 62.00 in 69.853 kg (154.00 lbs) 28.1 7 kg/m eter (2) 61 /min 120/84 mm[Hg] 96.60 F 100 % Chief Complaint And Reason For Visit From encounter dated '01/03/2021 16:00'. rash (chief complaint). Description: Her initial and only previous visit was on 10/28/18. She had a history of chronic idiopathic/ spontaneous urticaria from at least May 2018 through October 2018. She started having hives again summer 2020. She wonders if stress was a triggering factor due to surgery on left wrist and liposuction of her thighs. She is taking montelukast 10 mg daily and Zyrtec 10mg daily. She rarely uses naproxen- about every 3 months. She sometimes takes oxycodone at night after physical therapy for her thumb. She uses clobetasol topical for her scalp when she gets her hairdyed. Reason For Referral Reason For Referral No Information History Of Present Illness Encounter Date Complaint History Of Prese nt Illness rash Her initial and only previous visit was on 10/28/18. She had a history of chronic idiopathic/ spontaneous urticaria from at least May 2018 through October 2018. She started having hives again summer 2020. She wonders if stress was a triggering factor due to surgery on left wrist and liposuction of her thighs. She is taking montelukast 10 mg daily and Zyrtec 10 mg daily. She rarely uses naproxen- about every 3 months. She sometimes takes oxycodone at night after physical therapy for her thumb. She uses clobetasol topical for her scalp when she gets her hair dyed. allergy symptoms She has seasona l (worse in spring and fall) rhinoconjunctivitis symptoms of nasal congestion, nasal pruritus, sneezing, clear rhinorrhea, and itchy, watery eyes. Perennial symptoms are also present. She uses Zyrtec 10mg daily and Flonase 2 sprays in each nostril BID. She may have oral allergy symptoms with kiwi. She is rarely treated for sinus infections. Her main concern is the rash she has had since May 2018. The rash is raised, red, migratory, and pruritic. There have not been any associated swelling episodes. She was treated with prednisone on 10/04/18 and started on hydroxyzine at that time. The prednisone helped, but the rash returned. She also takes Zyrtec 10mg daily. She has not been having wheezing, dyspnea, vomiting, diarrhea, abdominal pain, light-headedness, or other signs/symptoms of anaphylaxis associated with hives. She denies fevers, chills, unexplained changes in weight, constipation, heat/cold intolerance, or arthralgias/arthritis. Individual lesions tend to last less than 24 hours and do not leave any residual pigmentary change. She has not changed personal care products or medications. She has been taking naproxen daily for the past 2 weeks without worsening of rash. She has not had any tick bites. She has dry cough at night when lying down. She denies exertional cough. She used to have asthma issues when living in [place]. She has seen Dr. Juvenal Jung in the past and had positive patch testing for a chemical in hair dye.Allergies: morphine- migraines (intolerance)PMH: allergic rhinitis, contact dermatitis, HTNFH: son- allergic rhinitis, osteoarthritis; No urticaria, angioedema, RA, SLE, thyroid disease, or immunodeficiencySH: no tobacco use; No ETS exposure; 1 parrot, 1 colleen; in 1866 urban home with unfinished basement not damp/moldy. +Central air/forced heat with windows open. Mold in AC changed in summer 2018; carpet in bedroom. 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 Zyrtec (cetirizine) 10 m tablet 2 times/day; may increase to maximum of 2 tablets twice per day; Be aware that this can make you drowsy and feel dried out. It can also affect urination.2. Famotidine (Pepcid) 20 m tablet twice per day. This is a heartburn/reflux medication, but it also blocks histamine.3. Singulair (montelukast) 10 mg every evening. Rarely, this can affect your mood. If you notice any changes such as depression or suicidal thoughts, this medication will be stopped.If you are free of symptoms for 2 weeks, start weaning the medications (working backwards from #3 up to #1) by decreasing by one dose every 3-7 days. If symptoms are not well controlled, Xolair (omalizumab) given as two injections every four weeks can be started. You can read about Xolair here: [email or web address] Related to Idiopathic urticaria Giving encouragement to exercise Related to Body mass index [BMI] 28.0-28.9, adult You have chronic (mo re than 6 weeks) idiopathic (unknown reason) urticaria (hives). About 20% of the population gets hives at some point. There is unlikely to be any specific cause for the hives. This is not an uncommon medical condition. The hives occur from release of histamine from certain cells. While in some cases hives can be due to allergies; when it is chronic (lasts more than 6 weeks), there is usually no specific cause. Rarely, certain medical conditions can be associated with hives. If the hives are very difficult to control, labs may be considered to evaluate for mainly non-allergic medical conditions (the vast majority of people do not need labs). Take the following medications:1. Fexofenadine (generic Anastasia) 180mg OR Zyrtec (cetirizine) 10mg OR Xyzal (levocetirizine) 5m tablet 2 times/day; may increase to maximum of 2 tablets twice per day2. Ranitidine (generic Zantac) 150 mg OR famotidine (Pepcid) 20m tablet twice per day3. Singulair (montelukast) 10mg every eveningIf you are free of symptoms for 2 weeks, start weaning the medications (working backwards from #3 up to #1). If symptoms are not well controlled, Xolair (omalizumab) given as two injections every four weeks can be started. If Xolair is started, you have to wait 2 hours in the office after the first three sets of injections. Starting with the fourth set of injections, you only have to wait 30 minutes after injections. Related to Urticaria Use Flonase 2 sprays in each nostril once per day, Singulair (montelukast) 10mg daily, and antihistamines as below. Related to Other allergic rhinitis Assessments Type Assessment Date assessment Body mass index [BMI] 28.0-28.9, adult assessment Idiopathic urticaria Patient Care Teams Name Effective Dates (start - stop) Status Members No Information
== END 2024-02-17 07:31 | disposition home or self-care (01) ==
PROVIDERS: Visit Provider Orthopaedic Surgery
DX: S83.241A Other tear of medial meniscus, current injury, right knee, initial encounter (principal); M94.261 Chondromalacia, right knee; M71.21 Synovial cyst of popliteal space [Baker], right knee; X58.XXXA Exposure to other specified factors, initial encounter
CPT/HCPCS: 73721